=== PATIENT | male | born 1960 | race Caucasian/White ===

== ENCOUNTER 2017-03-27 11:24 | Inpatient (IN) | payer BC ==
[~2017-03-27] VITALS: Ht 175.3 cm; Wt 173.5 kg
[~2017-03-27 11:24] MED LIST: ERGO1CAP35 PO; FLM4 PO; FLUO10CA48 PO; METF500T5 PO; METO1TAB69 PO; METO50TA7 PO; ONDA4TAB10 SL; POTA20TA11 PO; PRT/40 PO; SYN50 PO; TRAM-10 PO; TRAZ50TA35 PO; ZOLP1TAB PO
--- NOTE | 2017-03-27 12:27 | EMERGENCY ROOM VISIT NOTE ---
ED Visit Note First contact with patient: 11:57 Resident Physician Supervision Note: I interviewed and examined the patient. Discussed with Dr. Jo and agree with findings and plan as documented in the note. Documented By: Yoni Junior Problem List Medical Problems: (1) Afib Status: Chronic (2) Coronary artery disease Permanent Comment: moderate disease per cardiac cath [facility] 2013; 50% LAD , 40% RCA Status: Chronic (3) Depression Status: Chronic (4) Diabetes mellitus type 2, controlled Status: Chronic (5) Hypertension Status: Chronic (6) Hypothyroidism Status: Chronic (7) Insomnia Status: Chronic (8) Iron deficiency anemia Status: Chronic (9) Ventricular septal defect Status: Chronic (10) Vitamin B12 deficiency Status: Chronic Surgical Problems: (1) Status post gastric bypass for obesity Status: Chronic Current/Historical Medications Scheduled Ergocalciferol (Vitamin D Cap), 50,000 INTER.UNIT PO WK Fluoxetine (Prozac), 10 MG PO QAM Levothyroxine Sodium (Synthroid), 50 MCG PO DAILY Metformin Hcl Er (Glucophage Er), 500 MG PO QPM Metoprolol Succ (Toprol Xl) (Toprol-Xl ), 100 MG PO HS Metoprolol Succ (Toprol Xl) (Toprol-Xl), 50 MG PO HS Pantoprazole (Pantoprazole Sodium), 40 MG PO DAILY Potassium Chloride Microencaps (Potassium Chloride Cr), 20 MEQ PO DAILY Tamsulosin HCl (Tamsulosin HCl), 0.4 MG PO QAM Trazodone Hcl (Trazodone), 50 MG PO HS Zolpidem Tartrate (Ambien Er), 12.5 MG PO HS Scheduled PRN Ondasetron Odt (Zofran Odt), 4 MG SL Q6H PRN for Nausea or Vomiting Tramadol (Ultram), 100 MG PO BID PRN for Pain Allergies Coded Allergies: No Known Allergies (Unverified , `, 03/10/16) Vital Signs Date Time Temp Pulse Resp B/P (MAP) Pulse Ox O2 Delivery O2 Flow Rate FiO2 03/27/17 12:02 139 03/27/17 11:58 Room Air 98 03/27/17 11:32 37.1 86 18 156/89 96 Room Air Laboratory Results Test 03/27/17 11:59 10/14/17 12:13 Creatine Kinase MB Ratio (0-3.0) Departure Information Referrals Sandi Roman M.D. (PCP) Patient Instructions [facility]
[2017-03-27 12:31] LABS: BASO % 0.5 %; BASO ABS # 0.04 K/uL (0-0.2); COMPLETE YES; EOS % 1.7 %; IG% 0.2 %; LYMPH % 21.1 %; LYMPH ABS # 1.87 K/uL (1.2-3.4); MEAN CORPUSCULAR HEMOGLOBIN 26.4 pg (25-34); MEAN CORPUSCULAR HGB CONC 31.8 g/dl (32-36); MEAN PLATELET VOLUME 8.5 fL (7.4-10.4); MONO % 6.5 %; PLATELET COUNT 173 K/uL (130-400); RED BLOOD COUNT 4.58 M/uL (4.7-6.1); WHITE BLOOD COUNT 8.88 K/uL (4.8-10.8)
[2017-03-27 12:36] LABS: INR 1.1 (0.9-1.1); PROTHROMBIN TIME (PATIENT) 11.6 SECONDS (9.0-12.0)
--- NOTE | 2017-03-27 12:36 | DIAGNOSTIC IMAGING REPORT ---
SINGLE VIEW CHEST CLINICAL HISTORY: Dyspnea. FINDINGS: 2 AP, portable, upright chest radiographs are compared to study dated 03/06/2016. Correlation is made with chest CT dated 10/30/2015. The examination is severely degraded by portable technique, large body habitus, and patient rotation. The cardiomediastinal heart is enlarged. The pulmonary vasculature is noncongested. The lungs and pleural spaces are clear. No pneumothorax is seen. The skeletal structures appear osteopenic. The bony thorax is grossly intact. IMPRESSION: Cardiomegaly with no acute cardiopulmonary abnormality. Electronically signed by: Kameron Diaz M.D. 03/27/2017 12:35 PM Dictated Date/Time: 03/27/2017 12:34 PM
[2017-03-27 12:38] LABS: BLOOD UREA NITROGEN 17 mg/dl (7-18); BUN/CREATININE RATIO 15.2 (10-20); CALCIUM 8.3 mg/dl (8.5-10.1); CARBON DIOXIDE 24 mmol/L (21-32); CHLORIDE 112 mmol/L (98-107); GLUCOSE 97 mg/dl (70-99); POTASSIUM 3.9 mmol/L (3.5-5.1); SODIUM 142 mmol/L (136-145)
[2017-03-27] MEDS ORDERED: METOPROLOL TARTRATE 1 MG/ML VIAL IV STA (12:38)
[2017-03-27] MEDS ORDERED: METOPROLOL TARTRATE 1 MG/ML VIAL ONE ×2 (12:38→13:29)
[2017-03-27 12:42] LABS: CKMB/CK RATIO 2.1 (0-3.0)
--- NOTE | 2017-03-27 12:53 | EMERGENCY ROOM VISIT NOTE ---
History First contact with patient: 11:55 Chief Complaint: RESPIRATORY PROBLEMS Stated Complaint: HARD BREATHING, CHEST TIGHTNESS Nursing Triage Summary: Difficulty breathing, chest tightness, dizziness since . In and out of A Fib Hx of Gastric Bypass Nonproductive cough, "hacking" History of Present Illness The patient is a 57 year old male who presents to the Emergency Room with complaints of shortness of breath. The patient complains of shortness of breath and orthopnea for the past 2 days. SOB present with lying flat, but states that it is worse when he is up walking around. He has felt slightly presyncopal for the past 2 days as well a generalized sense of malaise. He denies chest pain, but states he feels a slight tightness in his chest was taken deep breath in. He is uncertain whether he feels palpitations or not. He states that he has had some worsening swelling in his legs with the past 2 days. He took an extra dose of his Lasix for the past 2 days and states that it has helped but is not quite back to his baseline yet. His is slightly reduced appetite, but he continues to eat and drink without any issues. He has not had any nausea, vomiting, abdominal pain, diarrhea or constipation. He continues to urinate at baseline. He has not had fevers or chills or night sweats. The patient does report a history of atrial fibrillation diagnosed in 2016 after which she was hospitalized for management. The decision at that time was made to not anticoagulate, because the patient was Hemoccult positive. Since going home he was never put on anticoagulation. Prior to that discharge in 2016 that he converted spontaneous back to normal sinus rhythm. Review of Systems A 10 point review of systems was negative unless stated above. Past Medical/Surgical History Medical Problems: (1) Coronary artery disease (2) Depression (3) Diabetes mellitus type 2, controlled (4) History of urinary calculi (5) Hypertension (6) Hypothyroidism (7) Insomnia (8) Iron deficiency anemia (9) Paroxysmal atrial fibrillation (10) Ventricular septal defect (11) Vitamin B12 deficiency Surgical Problems: (1) Status post cystoscopy (2) Status post gastric bypass for obesity Family History Patient reports no known family medical history. CAD HTN DM Cancer Social History Smoking Status: Never Smoker Alcohol Use: none Drug Use: none Marital Status: single Occupation Status: retired Current/Historical Medications Scheduled Escitalopram (Lexapro), 10 MG PO QAM Furosemide (Lasix), 40 MG PO QAM Levothyroxine Sodium (Levothyroxine Sodium), 50 MCG PO DAILY Metoprolol Succ (Toprol Xl) (Toprol-Xl), 50 MG PO QAM Metoprolol Succ (Toprol Xl) (Toprol-Xl), 100 MG PO HS Pantoprazole (Protonix), 40 MG PO DAILY Potassium Ext Rel (Klor-Con), 20 MEQ PO QPM Tramadol (Ultram), 100 MG PO QAM Trazodone Hcl (Trazodone), 50 MG PO HS Allergies NKA Physical Exam Vital Signs Date Time Temp Pulse Resp B/P (MAP) Pulse Ox O2 Delivery O2 Flow Rate FiO2 03/27/17 12:46 132 16 136/105 95 Room Air 03/27/17 12:46 132 136/105 03/27/17 12:02 139 03/27/17 11:58 Room Air 98 03/27/17 11:32 37.1 86 18 156/89 96 Room Air Pain Rating (0-10): 0 Physical Exam Constitutional: Vital signs as above were reviewed. Obese Eyes: Pupils equal, round, and reactive to light. Extraocular muscles are intact. No proptosis. No photophobia. ENT: Mucous membranes are moist. Oropharynx is clear. No sinus tenderness. Very poor dentition Cardiovascular: Irregularly irregular, tachycardic, 1 + pedal edema bilaterally Respiratory: Lungs clear to auscultation bilaterally. No wheezes, rales, or rhonchi appreciated. No accessory muscle use. No retractions. No increased work of breathing. GI: Abdomen soft, nontender, nondistended. Normal active bowel sounds. No abdominal hernias appreciated. No rebound. No guarding. : No CVA tenderness appreciated. Musculoskeletal: No midline cervical or vertebral tenderness. No gross deformities. No bony tenderness. No calf swelling or tenderness. Integumentary: Warm, dry, no rashes appreciated. Neurological: Patient awake, alert, and oriented x 3. Lymph: No cervical lymphadenopathy appreciated. Medical Decision & Procedures ER Provider Diagnostic Interpretation: CLINICAL HISTORY: Dyspnea. FINDINGS: 2 AP, portable, upright chest radiographs are compared to study dated 03/06/2016. Correlation is made with chest CT dated 10/30/2015. The examination is severely degraded by portable technique, large body habitus, and patient rotation. The cardiomediastinal heart is enlarged. The pulmonary vasculature is noncongested. The lungs and pleural spaces are clear. No pneumothorax is seen. The skeletal structures appear osteopenic. The bony thorax is grossly intact. IMPRESSION: Cardiomegaly with no acute cardiopulmonary abnormality. Electronically signed by: Kameron Diaz M.D. 03/27/2017 12:35 PM Dictated Date/Time: 03/27/2017 12:34 PM The status of this report is Signed. Draft = Not yet reviewed or approved by Radiologist. Signed = Reviewed and approved by Radiologist. Laboratory Results 03/27/17 11:59 Red Blood Count 4.58, Mean Corpuscular Volume 83.0, Mean Corpuscular Hemoglobin 26.4, Mean Corpuscular Hemoglobin Concent 31.8, Mean Platelet Volume 8.5, Neutrophils (%) (Auto) 70.0, Lymphocytes (%) (Auto) 21.1, Monocytes (%) (Auto) 6.5, Eosinophils (%) (Auto) 1.7, Basophils (%) (Auto) 0.5, Neutrophils # (Auto) 6.22, Lymphocytes # (Auto) 1.87, Monocytes # (Auto) 0.58, Eosinophils # (Auto) 0.15, Basophils # (Auto) 0.04 03/27/17 11:59 Test 03/27/17 11:59 White Blood Count 8.88 K/uL (4.8-10.8) Red Blood Count 4.58 M/uL (4.7-6.1) Hemoglobin 12.1 g/dL (14.0-18.0) Hematocrit 38.0 % (42-52) Mean Corpuscular Volume 83.0 fL (80-100) Mean Corpuscular Hemoglobin 26.4 pg (25-34) Mean Corpuscular Hemoglobin Concent 31.8 g/dl (32-36) Platelet Count 173 K/uL (130-400) Mean Platelet Volume 8.5 fL (7.4-10.4) Neutrophils (%) (Auto) 70.0 % Lymphocytes (%) (Auto) 21.1 % Monocytes (%) (Auto) 6.5 % Eosinophils (%) (Auto) 1.7 % Basophils (%) (Auto) 0.5 % Neutrophils # (Auto) 6.22 K/uL (1.4-6.5) Lymphocytes # (Auto) 1.87 K/uL (1.2-3.4) Monocytes # (Auto) 0.58 K/uL (0.11-0.59) Eosinophils # (Auto) 0.15 K/uL (0-0.5) Basophils # (Auto) 0.04 K/uL (0-0.2) RDW Standard Deviation 46.2 fL (36.4-46.3) RDW Coefficient of Variation 15.4 % (11.5-14.5) Immature Granulocyte % (Auto) 0.2 % Immature Granulocyte # (Auto) 0.02 K/uL (0.00-0.02) Prothrombin Time 11.6 SECONDS (9.0-12.0) Prothromb Time International Ratio 1.1 (0.9-1.1) Anion Gap 7.0 mmol/L (3-11) Est Creatinine Clear Calc Drug Dose 103.6 ml/min Estimated GFR () 85.9 Estimated GFR (Non- 74.1 BUN/Creatinine Ratio 15.2 (10-20) Calcium Level 8.3 mg/dl (8.5-10.1) Total Creatine Kinase 95 U/L (39-308) Creatine Kinase MB 2.0 ng/ml (0.5-3.6) Creatine Kinase MB Ratio 2.1 (0-3.0) Medications Administered Medications (Trade) Dose Ordered Sig/Efrain Route Start Time Stop Time Status Last Admin Dose Admin Metoprolol Tartrate (Lopressor Iv) 5 mg NOW STAT IV 03/27/17 12:38 03/27/17 12:54 DC 03/27/17 12:46 5 MG Heparin Sodium (Porcine) (Heparin Sq 5000 Unit/0.5ml) 10,000 unit STK-MED ONCE .ROUTE 03/27/17 12:55 03/27/17 12:56 DC 03/27/17 12:55 8,000 UNIT Heparin Sodium/ Dextrose (Heparin 25,000 Unit/500ml D5W) 25,000 unit STK-MED ONCE .ROUTE 03/27/17 12:56 03/27/17 12:57 DC 03/27/17 12:56 25,000 UNIT ECG Change: Poor data quality, interpretation may be adversely affected Atrial fibrillation with rapid ventricular response Low voltage QRS Right bundle branch block Abnormal ECG When compared with ECG of 06-MAR-2016 18:19, Atrial fibrillation has replaced Sinus rhythm Vent. rate has increased BY 64 BPM Right bundle branch block is now Present Confirmed by KENNETH SCHWARZ ([id number]) on 03/27/2017 12:57:06 PM ED Course 12:00 - The patient was seen and evaluated by Dr. Monster Jo MD [facility] 12:10 - Labs ordered: CBC, BMP, PT/INR PTT, Cardiac enzymes, EKG, CXR, EKG reviewed; noted Afib with RVR 12:30 - 5 mg Lopressor ordered 12:45 - Labs reviewed Negative troponin CXR: cardiomegaly without overt failure 13:00 - Reviewed case with [place]. Esquivel, [facility] [place], who will evaluate and admit the patient. Medical Decision The patient is a 57-year-old male with a history of atrial fibrillation with RVR in February 2016, who converted spontaneously at that admission, who presents to the ED today with a sense of malaise and shortness of breath. Differential diagnosis includes pneumonia, CHF, ACS, bronchitis, obesity hypoventilation, obstructive sleep apnea. The EKG did note atrial fibrillation with rapid ventricular response. This was compared to his EKG from 2016 prior to discharge and showed a change from normal sinus rhythm. The patient has noted that he does take metoprolol daily, but that he has not been on anticoagulation because during his initial admission for atrial fibrillation, he was found to be heme positive. With shortness of breath it was my suspicion that atrial fibrillation may tipped off a CHF exacerbation. The chest x-ray did show some cardiomegaly but was otherwise unremarkable for pulmonary congestion or consolidation. He does have a very large body habitus and certainly PHYLLIS and obesity hypoventilation syndrome could certainly contribute to shortness of breath. His heart rate on arrival was in the 140s, and was refractory to 5 mg IV Lopressor. In this setting, the patient requires admission for acute IV therapies to help rate control, and for oral medication titration. The patient was reporting symptoms for approximately 48 hours. In this setting we had to consider the possibility of a mural thrombus. As such the patient would require admission and evaluation with KIMBERLY/TOB to look for this. Patient was stable during his admission with the exception of his tachycardia. I discussed the case with the hospitalist service, who will admit him for further evaluation and management. Head Trauma GCS Score: 15 Medication Reconcilliation Current Medication List: was personally reviewed by me Blood Pressure Screening Patient's blood pressure: Normal blood pressure Impression Primary Impression: Atrial fibrillation with rapid ventricular response Departure Information Dispostion Being Evaluated By Hospitalist Condition GOOD Referrals Sandi Roman M.D. (PCP) Patient Instructions [facility]
[2017-03-27] MEDS ORDERED: TRAZ50TA35 PO (12:54)
[2017-03-27] MEDS ORDERED: METO50TA7 PO ×2 (12:54)
[2017-03-27] MEDS ORDERED: HEPARIN SOD 5000 UNIT/0.5 ML CARP ONE (12:55)
[2017-03-27] MEDS ORDERED: HEPARIN 25000 UNIT/500 ML D5W ONE (12:56)
--- NOTE | 2017-03-27 13:54 | History and Physical ---
History & Physical Date & Time of Service: Mar 27, 2017 at 13:20 . Chief Complaint: trouble breathing . Primary Care Physician: Sandi Roman M.D. . History of Present Illness Source: patient, clinic records, hospital records 57 YO male followed by Dr. Roman for Internal Medicine. History of moderate coronary artery disease (50% LAD, 40% RCA stenoses) per cardiac cath 2013, paroxysmal atrial fibrillation, small VSD, hypertension, diet -controlled DM, and other problems noted below. Admitted to [facility] October 2015 with initial episode of atrial fibrillation. Converted to NSR. Not anticoagulated due to heme + stools. Subsequently underwent outpatient EGD and colonoscopy- only finding per pt's understanding was colonic polyps. 2 nights prior to admission developed dyspnea while sleeping in bed around 01: 00. Sudden onset of symptoms. No palpitations, but his radial pulse seemed to be irregular when he checked it manually. Chest felt tight with deep inspiration. No fever. Mild nonproductive cough. Weight up a few pounds. Instructed to increase his furosemide dose from 40 mg daily to 80 mg daily. Progressive orthopnea and dyspnea on exertion despite increased dose of furosemide. Came to ED for evaluation. Found to be in atrial fibrillation with rapid ventricular response. Received IV metoprolol without significant slowing of ventricular rate. . Past Medical/Surgical History Chronic and Resolved Medical Problems: (1) Coronary artery disease Permanent Comment: moderate disease per cardiac cath [facility]-2013; 50% LAD , 40% RCA (2) Depression (3) Diabetes mellitus type 2, controlled (4) History of colonic polyps (5) History of urinary calculi Permanent Comment: right ureteral stone 2015 (6) Hypertension (7) Hypothyroidism (8) Insomnia (9) Iron deficiency anemia Permanent Comment: heme + stool 2015, subsequent EGD and colonoscopy neg except for polyp (10) Paroxysmal atrial fibrillation (11) Ventricular septal defect Status: Chronic (12) Vitamin B12 deficiency Surgical Problems: (1) Status post cardiac catheterization Permanent Comment: 2013, 50% LAD, 40% RCA (2) Status post cystoscopy Permanent Comment: with right ureteroscopy, laser lithotripsy, basket stone extraction (3) Status post gastric bypass for obesity . Family History GRANDFATHER Hypertension GRANDFATHER Hypertension Heart disease GRANDMOTHER Hypertension Heart disease GRANDMOTHER Hypertension Social History Smoking Status: Never Smoker Alcohol Use: occasionally Drug Use: none Marital Status: single Housing status: lives alone Occupational Status: retired Allergies Coded Allergies: No Known Allergies (Unverified , `, 03/27/17) Home Medications Scheduled Escitalopram (Lexapro), 10 MG PO QAM Furosemide (Lasix), 40 MG PO QAM Levothyroxine Sodium (Levothyroxine Sodium), 50 MCG PO DAILY Metoprolol Succ (Toprol Xl) (Toprol-Xl), 50 MG PO QAM Metoprolol Succ (Toprol Xl) (Toprol-Xl), 100 MG PO HS Pantoprazole (Protonix), 40 MG PO DAILY Potassium Ext Rel (Klor-Con), 20 MEQ PO QPM Tramadol (Ultram), 100 MG PO QAM Trazodone Hcl (Trazodone), 50 MG PO HS Review of Systems Constitutional- no fever; no weight loss Eyes- no acute visual changes ENT- no sinus drainage; no pharyngitis Pulmonary- as noted in HPI Cardiac- as noted in HPI GI- no nausea, no vomiting, no diarrhea, no melena, no hematochezia - no dysuria, no hematuria Musculoskeletal- knee pain Derm- no rashes, no new skin lesions, no changing skin lesions Hematologic- no unusual bruising, no unusual bleeding Lymphatics- no adenopathy Endocrine- no polyuria or polydipsia Neuro- mild headaches Psych- depression . Physical Exam Vital Signs Date Time Temp Pulse Resp B/P (MAP) Pulse Ox O2 Delivery O2 Flow Rate FiO2 03/27/17 13:39 124 16 148/104 98 Room Air 03/27/17 13:29 124 148/104 03/27/17 12:46 132 16 136/105 95 Room Air 03/27/17 12:46 132 136/105 03/27/17 12:02 139 03/27/17 11:58 Room Air 98 03/27/17 11:32 37.1 86 18 156/89 96 Room Air General Appearance: no apparent distress, + obese Head: normocephalic, atraumatic Eyes: normal inspection, PERRL, EOMI, sclerae normal (eyelids and conjunctivae normal) ENT: pharynx normal, + pertinent finding (poor dentition) Neck: supple, no adenopathy, thyroid normal (exam limited due to body habitus) , trachea midline Respiratory/Chest: lungs clear, no respiratory distress, no accessory muscle use Cardiovascular: no gallop, no JVD (none appreciated, but exam limited due to body habitus), + systolic murmur (II/ sys murmur at apex), + irregularly irregular, + pertinent finding (1+ pretibial edema) Abdomen/GI: normal bowel sounds, non tender, soft, no organomegaly (exam limited), no pulsatile mass Extremities/Musculoskelatal: no calf tenderness, normal capillary refill Neurologic/Psych: informatics scientist II-XII nml as tested (PERRL, EOMI, no facial palsy, no dysarthria), no motor/sensory deficits (motor strength extremities grossly intact), alert, normal mood/affect, oriented x 3 Skin: normal color, warm/dry, no rash Lymphatic: no adenopathy (cervical) Diagnostics Laboratory Results Results Past 24 Hours Test 03/27/17 11:59 Range/Units White Blood Count 8.88 4.8-10.8 K/uL Red Blood Count 4.58 4.7-6.1 M/uL Hemoglobin 12.1 14.0-18.0 g/dL Hematocrit 38.0 42-52 % Mean Corpuscular Volume 83.0 80-100 fL Mean Corpuscular Hemoglobin 26.4 25-34 pg Mean Corpuscular Hemoglobin Concent 31.8 32-36 g/dl Platelet Count 173 130-400 K/uL Mean Platelet Volume 8.5 7.4-10.4 fL Neutrophils (%) (Auto) 70.0 % Lymphocytes (%) (Auto) 21.1 % Monocytes (%) (Auto) 6.5 % Eosinophils (%) (Auto) 1.7 % Basophils (%) (Auto) 0.5 % Neutrophils # (Auto) 6.22 1.4-6.5 K/uL Lymphocytes # (Auto) 1.87 1.2-3.4 K/uL Monocytes # (Auto) 0.58 0.11-0.59 K/uL Eosinophils # (Auto) 0.15 0-0.5 K/uL Basophils # (Auto) 0.04 0-0.2 K/uL RDW Standard Deviation 46.2 36.4-46.3 fL RDW Coefficient of Variation 15.4 11.5-14.5 % Immature Granulocyte % (Auto) 0.2 % Immature Granulocyte # (Auto) 0.02 0.00-0.02 K/uL Prothrombin Time 11.6 9.0-12.0 SECONDS Prothromb Time International Ratio 1.1 0.9-1.1 Activated Partial Thromboplast Time 26.2 21.0-31.0 SECONDS Partial Thromboplastin Ratio 1.0 Sodium Level 142 136-145 mmol/L Potassium Level 3.9 3.5-5.1 mmol/L Chloride Level 112 98-107 mmol/L Carbon Dioxide Level 24 21-32 mmol/L Anion Gap 7.0 3-11 mmol/L Blood Urea Nitrogen 17 7-18 mg/dl Creatinine 1.10 0.60-1.40 mg/dl Est Creatinine Clear Calc Drug Dose 103.6 ml/min Estimated GFR () 85.9 Estimated GFR (Non- 74.1 BUN/Creatinine Ratio 15.2 10-20 Random Glucose 97 70-99 mg/dl Calcium Level 8.3 8.5-10.1 mg/dl Total Creatine Kinase 95 39-308 U/L Creatine Kinase MB 2.0 0.5-3.6 ng/ml Creatine Kinase MB Ratio 2.1 0-3.0 Troponin I < 0.015 0-0.045 ng/ml Diagnostic Radiology SINGLE VIEW CHEST IMPRESSION: Cardiomegaly with no acute cardiopulmonary abnormality. Electronically signed by: Kameron Diaz M.D. 03/27/2017 12:35 PM Dictated Date/Time: 03/27/2017 12:34 PM . EKG EKG performed at 11:54 reviewed and demonstrated AF at 150 / minute, low voltage QRS, RBBB. . Impression Assessment and Plan ATRIAL FIBRILLATION Recurrent atrial fibrillation with rapid ventricular response. CHADS2-VASc score = 3. Potassium normal. Check Mg, TSH. Rule out acute AK with serial cardiac markers. Screen for thromboembolic disease with D-dimer. Check echo. PO and IV metoprolol for rate control (will temporarily switch from metoprolol succinate to metoprolol tartrate for easier titration). IV heparin; transition to anticoagulation with warfarin if stool heme negative. Consult Cardiology. CORONARY ARTERY DISEASE Cardiac cath 2013 showed moderate disease (50% LAD, 40% RCA). Check serial cardiac markers. Check lipid profile. Start ASA. Continue metoprolol. DYSPNEA Possibly due to rapid AF. No overt pulmonary edema on chest films. Rule-out PE. AT RISK FOR SLEEP APNEA Wt 139 kg, BMI 45. Check nocturnal pulse oximetry once cardiac status stabilized. Consider outpatient sleep study if not recently done. HYPERTENSION Titrate metoprolol. Follow and titrate Rx. DM TYPE 2 Diet-controlled since gastric bypass. Random glucose in ED 97. Check Hgb A1C. HYPOTHYROIDISM Check TSH. Continue levothyroxine. DEPRESSION / INSOMNIA Continue escitalopram, trazodone. VTE PROPHYLAXIS IV heparin --> warfarin. Ambulate. RESUSCITATION STATUS Full code. DISPOSITION Admit to Telemetry Unit. Inpatient status recommended by Case Management. Expected discharge to home. Internal Medicine follow-up with Dr. Roman. . VTE Prophylaxis VTE Risk Assessment Done? Y/N: Yes Risk Level: Moderate Given or contraindicated: Other Anticoagulation (IV heparin)
[2017-03-27 14:41] VITALS: BP 151/97; PULSE 119; TEMP 37.2; O2SAT 97; Ht 175.3 cm; Wt 173.5 kg
[2017-03-27 15:07] VITALS: BP 136/78; PULSE 125; TEMP 36.8; O2SAT 97
[2017-03-27] MEDS: METOPROLOL TARTRATE 1 MG/ML VIAL IV PRN (15:23)
[2017-03-27] MEDS: FUROSEMIDE INJ 40 MG in SYRINGE 0 ML IV SCH (15:23)
[2017-03-27] MEDS ORDERED: INFLUENZA VIRUS QUAD VACCINE 0.5 ML SYR IM. ONE (15:45)
[2017-03-27] MEDS ORDERED: PNEUMOCOCCAL ADMINISTRATION CHARGE ONE (15:45)
[2017-03-27] MEDS ORDERED: PERFLUTREN LIPID MICROSPHERE (DEFINITY) IV ONE (15:45)
[2017-03-27] MEDS ORDERED: PNEUMOCOCCAL POLYSACCHARIDES 25 MCG/0.5 ML VIAL/SYR IM. ONE (15:45)
[2017-03-27] MEDS ORDERED: INFLUENZA ADMINISTRATION CHARGE ONE (15:45)
[2017-03-27] MEDS ORDERED: METOPROLOL TARTRATE 1 MG/ML VIAL IV ONE (16:15)
[2017-03-27] MEDS: METOPROLOL TARTRATE 50 MG TAB PO SCH ×2 (17:16→23:21)
[2017-03-27 18:41] VITALS: BP 122/84; PULSE 113; TEMP 37; O2SAT 96
[2017-03-27 18:41] LABS: MAGNESIUM 1.7 mg/dl (1.8-2.4)
[2017-03-27 18:49] LABS: PARTIAL THROMBOPLASTIN RATIO 2.1
[2017-03-27] MEDS ORDERED: MAGNESIUM SULFATE 1GM / D5W 1 GM in PREMIXED IN D5W 100 ML IV ONE ×2 (19:00→23:00)
[2017-03-27] MEDS ORDERED: OPTIRAY 320 IV PRN (19:15)
--- NOTE | 2017-03-27 20:02 | DIAGNOSTIC IMAGING REPORT ---
CT ANGIOGRAM OF THE CHEST CLINICAL HISTORY: Dyspnea. COMPARISON STUDY: Chest x-ray dated 03/27/2017. Chest CT dated 10/30/2015. TECHNIQUE: Following the IV administration of 117 cc of Optiray 320, CT angiogram of the chest was performed from the upper abdomen to the thoracic inlet utilizing the pulmonary embolus protocol. Images are reviewed in the axial, sagittal, and coronal planes. 3-D MIPS images are created and assessed. IV contrast was administered without complication. A dose lowering technique was utilized adhering to the principles of ALARA. The examination is significantly degraded by large body habitus, and by streak artifact from the body wall abutting the CT gantry. Examination is also degraded by motion artifact. CT DOSE: 1204.74 mGy.cm FINDINGS: Thyroid: Imaged portions of the thyroid gland are normal in size and attenuation. Thoracic aorta: The thoracic aorta is normal in caliber and demonstrates standard 3-vessel arch anatomy. The thoracic aorta is not well opacified. Pulmonary vasculature: The pulmonary trunk is dilated, measuring 3.9 cm in diameter. This suggests pulmonary artery hypertension. There are no filling defects identified in main, lobar, or segmental pulmonary branches to suggest pulmonary embolus. Evaluation of the peripheral branches is degraded by motion artifact. Heart: The heart is markedly enlarged and without pericardial effusion. The coronary arteries are densely calcified. Lungs and pleural spaces: Evaluation of lung parenchyma is degraded by motion artifact. There are trace pleural effusions with dependent atelectasis. No airspace consolidation is seen typical for pneumonia. The trachea and central airways are clear. Mediastinum: There is no mediastinal lymphadenopathy. Deborah: Clear. Axillae: There is no axillary lymphadenopathy. Upper abdomen: Cholecystectomy clips are noted. There is a moderate hiatal hernia. Circumferential wall thickening is suggested in the distal esophagus. 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 The spleen is enlarged measuring 14.6 cm in length. Skeletal structures: No lytic or blastic bony lesions are seen. Degenerative change is present throughout the thoracic spine. IMPRESSION: 1. Streak and motion degraded examination. 2. There is no evidence of pulmonary embolus in the main, lobar, or segmental pulmonary arteries. 3. Cardiomegaly with evidence of pulmonary artery hypertension. 4. Trace pleural effusions. The lungs are otherwise clear. 5. Hiatal hernia. Circumferential wall thickening is suggested in the distal esophagus. Correlate clinically for evidence of esophagitis. If further assessment is desired then endoscopy would be appropriate. 6. Splenomegaly. 7. Additional findings as above. Electronically signed by: Kameron Diaz M.D. 03/27/2017 8:01 PM Dictated Date/Time: 03/27/2017 7:56 PM
[2017-03-27] MEDS: POTASSIUM CHLORIDE 20 MEQ TABCR PO SCH (21:28)
[2017-03-27] MEDS: MAGNESIUM OXIDE 400 MG TAB PO SCH (21:28)
[2017-03-27] MEDS: TRAZODONE HCL 50 MG TAB PO SCH (21:28)
[2017-03-28 00:13] VITALS: BP 130/84; PULSE 106; TEMP 36.8; O2SAT 99
[2017-03-28] MEDS: HEPARIN 25,000 UNIT/500ML D5W 500 ML IV PRN ×2 (03:31→18:03)
[2017-03-28 03:32] VITALS: BP 122/90; PULSE 93; TEMP 36.8; O2SAT 97
[2017-03-28 05:48] LABS: HEMATOCRIT 34.9 % (42-52); MEAN CELL VOLUME 83.7 fL (80-100); MEAN CORPUSCULAR HEMOGLOBIN 26.4 pg (25-34); MEAN CORPUSCULAR HGB CONC 31.5 g/dl (32-36); MEAN PLATELET VOLUME 8.2 fL (7.4-10.4); PLATELET COUNT 158 K/uL (130-400); RED BLOOD COUNT 4.17 M/uL (4.7-6.1); WHITE BLOOD COUNT 7.03 K/uL (4.8-10.8)
[2017-03-28] MEDS: LEVOTHYROXINE 50 MCG TAB PO SCH (06:05)
[2017-03-28] MEDS: METOPROLOL TARTRATE 50 MG TAB PO SCH ×3 (06:05→17:32)
[2017-03-28 06:07] LABS: INR 1.1 (0.9-1.1); PARTIAL THROMBOPLASTIN RATIO 1.9; PROTHROMBIN TIME (PATIENT) 11.8 SECONDS (9.0-12.0)
[2017-03-28 06:26] LABS: CALCIUM 7.9 mg/dl (8.5-10.1); CREATININE 0.92 mg/dl (0.60-1.40); MAGNESIUM 1.9 mg/dl (1.8-2.4); POTASSIUM 3.5 mmol/L (3.5-5.1)
--- NOTE | 2017-03-28 06:33 | DIAGNOSTIC IMAGING REPORT ---
BILATERAL LOWER EXTREMITY VENOUS DOPPLER HISTORY: SOB, elevated D-dimer COMPARISON STUDY: None. FINDINGS: There is normal compressibility, flow, and augmentation within the bilateral lower extremity deep venous systems. IMPRESSION: No DVT within the right or left lower extremity. Electronically signed by: Aidan Mota M.D. 03/28/2017 6:32 AM Dictated Date/Time: 03/28/2017 6:32 AM
[2017-03-28 07:44] VITALS: BP 124/84; PULSE 98; TEMP 36.8; O2SAT 96
[2017-03-28] MEDS: MAGNESIUM OXIDE 400 MG TAB PO SCH ×2 (07:59→21:04)
[2017-03-28] MEDS: ESCITALOPRAM OXALATE 10 MG TAB PO SCH (08:00)
[2017-03-28] MEDS: ASPIRIN 81 MG ECTAB PO SCH (08:00)
[2017-03-28] MEDS: PANTOprazole SOD 40 MG TAB PO SCH (08:00)
[2017-03-28] MEDS: POTASSIUM CHLORIDE 20 MEQ TABCR PO SCH ×2 (08:00→21:04)
[2017-03-28] MEDS: FUROSEMIDE INJ 40 MG in SYRINGE 0 ML IV SCH ×2 (08:06→16:07)
[2017-03-28] MEDS: TRAMADOL HCL 50 MG TAB PO SCH (08:07)
--- NOTE | 2017-03-28 09:21 | ECHOCARDIOGRAM REPORT ---
*NOTICE TO RECEIVING LIBERTARIAN AGENCY This information is strictly Confidential and protected under [place] law. [place] law prohibits you from making any further disclosure of this information unless further disclosure is expressly permitted by the written consent of the person to whom it pertains or is authorized by law. A general authorization for the release of medical or other information is not sufficient for this purpose. Hospital accepts no responsibility if the information is made available to any other person, INCLUDING THE PATIENT. Interpretation Summary * Name: OMA OWENS Study Date: 03/27/2017 03:14 PM BP: 136/78 mmHg * Patient Location: C.2T\S\E215\S\1 HR: 124 * : 1960 (M/d/yyy) Gender: Male Height: 69 in * Age: 57 yrs Ethnicity: CA Weight: 307 lb * Ordering Physician: Zhang Esquivel * Referring Physician: Self, Referred * Performed By: Harriet Marie RDCS * * Reason For Study: Atrial fibrillation * BSA: 2.5 m2 * The study was technically limited. * -- Conclusions -- * The study was technically limited. * The left ventricular ejection fraction is grossly normal. * Ejection Fraction = 65-70%. * The right ventricular systolic function is qualitatively normal. * The left atrium is mildly dilated. * The right atrium is mildly dilated. * No significant vavular pathology. * No VSD identified by this technically limited study. Procedure Details * A complete two-dimensional transthoracic echocardiogram was performed (2D, M-mode, Doppler and color flow Doppler). * The study was technically limited. * The study was technically difficult. * There were technical limitations due to patient'sbody habitus * A contrast injection of Definity was performed to improve assessment of LV function. * Contrast was injected into an intravenous site in the right arm. * One vial of Definity ultrasound contrast was diluted in normal saline to a total volume of 10 ml. A total of '2' ml of solution was administered during imaging. * Lot # [id number] of Definity utilized for procedure. * Expiration date MAR 31. * The attending nurse who injected the contrast agent was Meredith Ford RN. Left Ventricle * The left ventricle is normal in size. * The left ventricle is not well visualized. * Ejection Fraction = 65-70%. * The left ventricular ejection fraction is grossly normal. Right Ventricle * The right ventricle is not well visualized. * The right ventricular systolic function is qualitatively normal. Atria * The left atrium is mildly dilated. * The right atrium is mildly dilated. * There is no evidence of atrial septal defect, but resolution does not allow assessment for a patent foramen ovale. Mitral Valve * The mitral valve is not well visualized. * Significant mitral regurgitation is absent. Tricuspid Valve * The tricuspid valve is not well visualized. * Significant tricuspid regurgitation is absent. Aortic Valve * The aortic valve is tricuspid. The leaflet thickness if normal. There is no aortic stenosis, and no significant insufficiency. * Aortic stenosis is absent. * There is no significant aortic regurgitation. Pulmonic Valve * The pulmonic valve is not well visualized. * There is no significant pulmonary regurgitation. Great Vessels * The aortic root and proximal ascending aorta are normal sized. Pericardium/Pleural * There is no pericardial effusion. MMode 2D Measurements and Calculations IVSd 0.92 cm LVIDd 3.5 cm LVIDs 2.3 cm LVPWd 1.1 cm IVS/LVPW 0.84 FS 36.4 % EDV(Teich) 52.6 ml ESV(Teich) 17.3 ml EF(Teich) 67.2 % EDV(cubed) 44.7 ml ESV(cubed) 11.5 ml EF(cubed) 74.3 % LV mass(C)d 106.8 grams LV mass(C)dI 43.1 grams/m\S\2 SV(Teich) 35.3 ml SI(Teich) 14.2 ml/m\S\2 SV(cubed) 33.2 ml SI(cubed) 13.4 ml/m\S\2 Ao root diam 3.4 cm Ao root area 8.9 cm\S\2 ACS 1.9 cm LA dimension 4.1 cm asc Aorta Diam 3.4 cm LA/Ao 1.2 LVOT diam 2.2 cm LVOT area 3.6 cm\S\2 LVAd ap4 23.6 cm\S\2 LVLd ap4 6.9 cm EDV(MOD-sp4) 65.1 ml EDV(sp4-el) 68.8 ml LVAs ap4 12.9 cm\S\2 LVLs ap4 6.0 cm ESV(MOD-sp4) 22.3 ml ESV(sp4-el) 23.6 ml EF(MOD-sp4) 65.7 % EF(sp4-el) 65.8 % SV(MOD-sp4) 42.8 ml SI(MOD-sp4) 17.3 ml/m\S\2 SV(sp4-el) 45.3 ml SI(sp4-el) 18.3 ml/m\S\2 Doppler Measurements and Calculations MV E max conor 135.6 cm/sec MV dec time 0.16 sec Ao V2 max 118.3 cm/sec Ao max PG 5.6 mmHg Ao max PG (full) 2.9 mmHg ZO(V,A) 2.5 cm\S\2 ZO(V,D) 2.5 cm\S\2 LV V1 max PG 2.7 mmHg LV V1 max 81.8 cm/sec PA V2 max 77.4 cm/sec PA max PG 2.4 mmHg PA acc slope 376.8 cm/sec\S\2 PA acc time 0.12 sec TR max conor 151.9 cm/sec PA pr(Accel) 25.1 mmHg
[2017-03-28 12:10] VITALS: BP 120/83; PULSE 125; TEMP 37.2; O2SAT 96
[2017-03-28] MEDS ORDERED: AMIODARONE 200 MG TAB PO ONE (12:30)
--- NOTE | 2017-03-28 12:53 | CARDIOLOGY CONSULTATION ---
DATE OF CONSULTATION: 03/28/2017 REFERRING PHYSICIAN: Ankit richardson. REASON FOR CONSULTATION: Atrial fibrillation. HISTORY OF PRESENT ILLNESS: This is a 57-year-old morbidly obese male patient who a year ago presented with atrial fibrillation, spontaneously converted to normal sinus rhythm. At that time, he was not placed on anticoagulation due to suggestion of GI bleeding. He subsequently went on to have an endoscopy and colonoscopy that were essentially unrevealing except for small polyp. He has not been followed by cardiology. He does have a history of coronary artery disease and had a cardiac catheterization in 2013 that showed moderate nonobstructive disease. He has a history of a heart murmur since childhood and states that it may be a VSD; however, his 2 previous echocardiograms including the one this admission failed to show evidence for VSD. He has undergone bariatric surgery in the past, but still remains morbidly obese. He is a phase 0 diabetic with a history of hypertension. He has never been treated or evaluated for sleep apnea. He presented this admission after several days of fatigue and just being played out with the activity. He was found to be in atrial fibrillation with RVR and has been given beta blockers to try to control his heart rate and was started on anticoagulation with heparin. At around 03:00 a.m. this morning when he was sleeping, he did have a bradycardic event, which resolved very quickly when he was aroused by nursing. He has no history of dizziness, lightheadedness, or syncope. No previous history of myocardial infarction. No current episodes of bleeding such as melena or hematochezia. In general, he feels better today. His heart rate still remained in the 120 range with atrial fibrillation. He has been given intravenous diuretics with a good result. ALLERGIES: No known medical allergies. PAST MEDICAL HISTORY: As outlined in the history of chief complaint. In addition, he has a history of treated hypothyroidism. He has a history of an iron deficiency anemia as well as vitamin B12 deficiency, which may be related to his previous bariatric surgery. SOCIAL HISTORY: He has never smoked. He is single and lives alone. FAMILY MEDICAL HISTORY: Noncontributory. REVIEW OF SYSTEMS: A 10-point review of systems is otherwise negative. PHYSICAL EXAMINATION: GENERAL: He is alert and oriented. VITAL SIGNS: Blood pressure is 140/100. Pulse is irregular at 120 beats per minute. He is afebrile. HEENT: He is normocephalic. Pupils are equal and reactive to light. Extraocular muscles are intact bilaterally. NECK: The neck veins are flat. Carotids have good upstrokes bilaterally without bruits. Thyroid is nonpalpable. RESPIRATORY: Breath sounds equal bilaterally and clear to auscultation. CARDIOVASCULAR: Heart has an irregular rhythm. There are no significant murmurs. GASTROINTESTINAL: Abdomen is obese, soft, and nontender without organomegaly. EXTREMITIES: Free of edema, digit clubbing, or cyanosis. NEUROLOGIC: Grossly intact. SKIN: Warm to touch. LYMPH NODES: Negative to palpation. LABORATORY DATA: Hemoglobin is 12.1 and platelet count 173. INR is 1.1. Potassium is 3.9 and creatinine is 1.1. Troponins are negative. TSH level is 7.48. IMPRESSION: 1. Atrial fibrillation with rapid ventricular response. 2. Bradycardic event while sleeping, rule out sleep apnea. 3. Morbid obesity. 4. Previous bariatric surgery. 5. Iron and vitamin B12 deficiencies. 6. Known coronary artery disease by cardiac catheterization in 2013. 7. Treated hypothyroidism, which may be under dosed. RECOMMENDATIONS: The patient by echocardiography, although being a limited study, showed preserved left ventricular systolic function with an estimated left ventricular ejection fraction of 65%-70%. I could not identify a VSD from this study. If he does have a VSD, I believe it is most likely very small. His left and right atrium are dilated. He has no other significant findings of valvular pathology. I think we need to have better rate control. I would recommend that we start him on amiodarone. We can hold his metoprolol as needed for his heart rates. He will have a nocturnal pulse oximeter tonight. It would not surprise me if he has sleep apnea due to his obesity and the bradycardia that happened last night. Ultimately, he may need CPAP support at night and possibly a pacemaker. He is anticoagulated with heparin and I will switch him over to Coumadin. We should probably adjust his thyroid medications appropriately for his elevated TSH level. Further evaluation and treatment following the above.
[2017-03-28] MEDS: METOPROLOL TARTRATE 1 MG/ML VIAL IV PRN (12:59)
[2017-03-28 15:03] VITALS: BP 120/82; PULSE 87; TEMP 36.8; O2SAT 97
[2017-03-28] MEDS: WARFARIN SOD 7.5 MG TAB PO SCH (16:09)
[2017-03-28] MEDS: AMIODARONE 200 MG TAB PO SCH (16:09)
--- NOTE | 2017-03-28 17:32 | Progress Note ---
Internal Med Progress Note Date of Service: Mar 28, 2017. Provider Documentation: SUBJECTIVE: resting comfortably says was having sob for last few days more on exeertion no cough' afebrile no chest pains ambulating in room ok OBJECTIVE: Vital Signs-as noted below Exam: General-alert and awake. Not in distress Eyes- no pallor no icterus ENT-normal hearing Neck-no neck masses Lungs-cta b/l no wheezing present no crackles Heart-s1 and s2 heard irregular rhythm no murmurs Abdomen-soft bowel sounds present non tender no distension Extremities-no erythema lower extremity edema present Neuro-alert and awake moves extremities Lab data as noted below. ASSESSMENT & PLAN: ATRIAL FIBRILLATION Recurrent atrial fibrillation with rapid ventricular response. CHADS2-VASc score = 3. d dimer elevated cta chest and venous Doppler negative study started on iv heparin and and placed on po Lopressor 50mg qid cardiology started on amiodarone echo unremarkable except for mild left and right atrial enlargement hx of hemepositive stools and underwent egd and colonoscopy which were unremarkable except polypectomy heme stools negative here staring on Coumadin' close monitor Sleep apnea? has obesity possible contributing to a fib plan for nocturnal pule ox study sleep study as out [facility] CORONARY ARTERY DISEASE Cardiac cath 2013 showed moderate disease (50% LAD, 40% RCA). started on ASA. will check lipid profile Continue metoprolol. DYSPNEA Possibly due to rapid AF. No overt pulmonary edema on chest films. HYPERTENSION Titrate metoprolol. will monitor DM TYPE 2 Diet-controlled since gastric bypass. Random glucose in ED 97. Will Check Hgb A1C. HYPOTHYROIDISM TSH high Continue levothyroxine. will recheck thyroid profile in am DEPRESSION / INSOMNIA on escitalopram, trazodone. VTE PROPHYLAXIS IV heparin --> warfarin. Ambulate. RESUSCITATION STATUS Full code. DISPOSITION Monitor in tele to be determined Internal Medicine follow-up with Dr. Roman. . Vital Signs: Date Time Temp Pulse Resp B/P (MAP) Pulse Ox O2 Delivery O2 Flow Rate FiO2 03/28/17 16:00 Room Air 03/28/17 15:03 36.8 87 18 120/82 (95) 97 Room Air 03/28/17 12:59 142 120/83 03/28/17 12:10 37.2 125 18 120/83 (95) 96 03/28/17 12:02 Room Air 03/28/17 08:05 Room Air 03/28/17 07:44 36.8 98 20 124/84 (97) 96 03/28/17 04:00 Room Air 03/28/17 03:32 36.8 93 18 122/90 (101) 97 Room Air 03/28/17 00:13 36.8 106 19 130/84 (99) 99 Room Air 03/28/17 00:00 Room Air 03/27/17 20:00 Room Air 03/27/17 18:41 37.0 113 20 122/84 (97) 96 Room Air Lab Results: Results Past 24 Hours Test 03/27/17 18:05 03/28/17 00:00 03/28/17 05:09 Range/Units Activated Partial Thromboplast Time 54.7 49.6 21.0-31.0 SECONDS Partial Thromboplastin Ratio 2.1 1.9 D-Dimer 800 0-500 ug/L FEU Magnesium Level 1.7 1.9 1.8-2.4 mg/dl Troponin I < 0.015 0-0.045 ng/ml Thyroid Stimulating Hormone (TSH) 7.480 0.300-4.500 uIu/ml Stool Occult Blood NEGATIVE NEGATIVE White Blood Count 7.03 4.8-10.8 K/uL Red Blood Count 4.17 4.7-6.1 M/uL Hemoglobin 11.0 14.0-18.0 g/dL Hematocrit 34.9 42-52 % Mean Corpuscular Volume 83.7 80-100 fL Mean Corpuscular Hemoglobin 26.4 25-34 pg Mean Corpuscular Hemoglobin Concent 31.5 32-36 g/dl RDW Standard Deviation 46.7 36.4-46.3 fL RDW Coefficient of Variation 15.4 11.5-14.5 % Platelet Count 158 130-400 K/uL Mean Platelet Volume 8.2 7.4-10.4 fL Prothrombin Time 11.8 9.0-12.0 SECONDS Prothromb Time International Ratio 1.1 0.9-1.1 Sodium Level 140 136-145 mmol/L Potassium Level 3.5 3.5-5.1 mmol/L Chloride Level 107 98-107 mmol/L Carbon Dioxide Level 26 21-32 mmol/L Anion Gap 7.0 3-11 mmol/L Blood Urea Nitrogen 15 7-18 mg/dl Creatinine 0.92 0.60-1.40 mg/dl Est Creatinine Clear Calc Drug Dose 148.7 ml/min Estimated GFR () 106.6 Estimated GFR (Non- 92.0 BUN/Creatinine Ratio 16.0 10-20 Random Glucose 96 70-99 mg/dl Calcium Level 7.9 8.5-10.1 mg/dl
[2017-03-28 18:58] VITALS: BP 109/74; PULSE 89; TEMP 36.9; O2SAT 95
[2017-03-28] MEDS: TRAZODONE HCL 50 MG TAB PO SCH (21:04)
[2017-03-29] VITALS (8 sets, daily range): BP systolic 105–128; BP diastolic 71–85; PULSE 81–106; TEMP 36.5–36.8; O2SAT 92–99
[2017-03-29] MEDS: METOPROLOL TARTRATE 50 MG TAB PO SCH ×5 (00:17→23:55)
[2017-03-29] MEDS: LEVOTHYROXINE 50 MCG TAB PO SCH (05:51)
[2017-03-29] MEDS: HEPARIN 25,000 UNIT/500ML D5W 500 ML IV PRN ×2 (05:53→19:57)
[2017-03-29 06:38] LABS: ESTIMATED AVERAGE GLUCOSE 103 mg/dl; HA1C FLAG Normal (Normal)
[2017-03-29 06:48] LABS: INR 1.1 (0.9-1.1); PARTIAL THROMBOPLASTIN RATIO 1.9; PROTHROMBIN TIME (PATIENT) 11.5 SECONDS (9.0-12.0)
[2017-03-29 07:01] LABS: THYROID STIMULATING HORMONE 4.94 uIu/ml (0.300-4.500)
[2017-03-29] MEDS: TRAMADOL HCL 50 MG TAB PO SCH (07:48)
[2017-03-29] MEDS: MAGNESIUM OXIDE 400 MG TAB PO SCH ×2 (07:49→19:51)
[2017-03-29] MEDS: PANTOprazole SOD 40 MG TAB PO SCH (07:49)
[2017-03-29] MEDS: ESCITALOPRAM OXALATE 10 MG TAB PO SCH (07:49)
[2017-03-29] MEDS: ASPIRIN 81 MG ECTAB PO SCH (07:49)
[2017-03-29] MEDS: POTASSIUM CHLORIDE 20 MEQ TABCR PO SCH ×2 (07:49→19:52)
[2017-03-29] MEDS: AMIODARONE 200 MG TAB PO SCH ×3 (07:50→16:39)
[2017-03-29] MEDS: FUROSEMIDE INJ 40 MG in SYRINGE 0 ML IV SCH ×2 (08:42→16:38)
--- NOTE | 2017-03-29 09:48 | Cardiology Follow-Up ---
Subjective General Date of Service: Mar 29, 2017. Chief Complaint: Symptomatic atrial fibrillation Pt evaluation today including: conversation w/ patient, physical exam, chart review, lab review, review of studies, review of inpatient medication list History of Present Illness Presented with acute on chronic dyspnea on 03/27/2017. Atrial fibrillation with a rapid ventricular response observed. History of atrial fibrillation ~1 year ago, spontaneously converting to sinus. Anticoagulation was not begun due to suggestion of GI bleeding. Typically takes Toprol XL 50 mg in the AM and 100 mg at bedtime Evaluated by Dr. Frey on 03/28/2017. Started on oral amiodarone 200 mg three times per day. On IV heparin since admission. Coumadin anticoagulated initiated on 03/28/2017 at 7.5 mg/day Elevated TSH noted on admission. LFT's not obtained. Telemetry: Currently atrial fibrillation the 80's. Heart rates are controlled when at rest, elevated with any activity. Bradycardic event last observed on telemetry on 03/28/2017 at 23:57:10. EKG dated & timed 29-MAR-2017 @ 06:36:55: Atrial fibrillation at 90 bpm with a right bundle branch block. QT/QTc 406/496 ms. March 27, 2017 TTE Interpretation Summary ([facility], Dr. Frey): The study was technically limited. The left ventricular ejection fraction is grossly normal. Ejection Fraction = 65-70%The right ventricular systolic function is qualitatively normal. The left atrium is mildly dilated. The right atrium is mildly dilated. No significant valvular pathology. No VSD identified by this technically limited study. Diagnostic cardiac catheterization performed at [facility] on January 19, [address] Lenny Wallis due to dyspnea and abnormal stress testing revealed right dominant coronary anatomy. RCA with a distal 40% stenosis. LM was angiographically normal. LAD was medium in size with a 50% stenosis in the mid vessel. The left circumflex was described as a large vessel with minimal luminal irregularities. LV gram revealed a mildly enlarged LV with mild global hypokinesis, EF estimated at 50%. Allergies Coded Allergies: No Known Allergies (Unverified , `, 03/27/17) Social History Smoking Status: Never Smoker Hx Tobacco Use In Past Year?: No Hx Alcohol Use - Type And Amou: Yes (very rare, occasional during holidays) Hx Substance Use - Type And Am: No Problem List Medical Problems: (1) Atrial fibrillation with rapid ventricular response Status: Acute (2) Atrial fibrillation with RVR Status: Acute (3) New onset a-fib Status: Acute (4) Ureteral stone Status: Acute Physical Exam Vital Signs Last Vital Signs Documentation Date Time Temp Pulse Resp B/P (MAP) Pulse Ox O2 Delivery O2 Flow Rate FiO2 03/29/17 07:14 36.7 87 20 119/79 (92) 96 Room Air 03/27/17 11:58 98 Physical Exam Constitutional: General Apperance: obese Level of Distress: NAD Psychiatric: Mental Status: active & alert Orientation: to time, to place, to person Memory: recent memory normal, remote memory normal Head: normocephalic, atraumatic Eyes: Pupils: PERRLA Neck: pertinent finding (No JVD) Lungs: Respiratory effort: no dyspnea Auscultation: no wheezing, no rales/crackles, no rhonchi, deminished air movement, decreased breath sounds Cardiovascular: Heart Auscultation: no murmurs, tachycardia, irregular rate rhythm Peripheral Pulses: Radial Pulse: normal on the left, normal on the right Dorsalis Pedis Pulse: absent on the left, absent on the right Extremities: no cyanosis, no clubbing, edema Neurologic: Cranial Nerves: grossly intact Assessment and Plan Assessment and Plan Presentation with symptomatic atrial fibrillation with rapid ventricular response. Duration appears to be greater than 48 hours. CHADS2 Score 2/6 Dilated left and right atrium. Morbid obesity. Observed nocturnal hypoxemia. Suspected sleep apnea. Nonobstructive coronary artery disease by catheterization as detailed above. Preserved LV systolic function No significant valvular disease RECOMMENDATIONS: Check LFT's. Reassess electrolytes and CBC today. Daily PT/INR. Continue metoprolol and amiodarone as presently prescribed. Risks discussed with patient. Continue Heparin bridge to proper Coumadin anticoagulation Continue telemetry given the atrial fibrillation with a RVR and the bradycardic event on 03/28/2017 at 23:57:10. Direct current cardioversion after proper anticoagulation achieved, likely as an outpatient with anesthesia. CARDIOLOGY ATTENDING ADDENDUM: The patient was seen and personally examined. Agree with Derrell Umaña PA-C's findings and plans as documented above. Let's see if respiratory can start him on CPAP while in the hospital Laboratory Results Last 24 Hours Test 03/29/17 06:03 03/29/17 09:24 Prothrombin Time 11.5 SECONDS Prothromb Time International Ratio 1.1 Activated Partial Thromboplast Time 50.1 SECONDS Partial Thromboplastin Ratio 1.9 Triglycerides Level 90 mg/dl Cholesterol Level 98 mg/dl HDL Cholesterol 49 mg/dl LDL Cholesterol, Calculated 31 mg/dl VLDL Cholesterol, Calculated 18 mg/dl Cholesterol/HDL Ratio 2.0 Thyroid Stimulating Hormone (TSH) 4.940 uIu/ml Thyroxine (T4) 6.4 mcg/dl
[2017-03-29 09:55] LABS: MEAN CELL VOLUME 84.1 fL (80-100); MEAN CORPUSCULAR HEMOGLOBIN 26.6 pg (25-34); MEAN CORPUSCULAR HGB CONC 31.6 g/dl (32-36); MEAN PLATELET VOLUME 8.2 fL (7.4-10.4); PLATELET COUNT 158 K/uL (130-400); WHITE BLOOD COUNT 6.73 K/uL (4.8-10.8)
[2017-03-29 10:19] LABS: BUN/CREATININE RATIO 10.7 (10-20); CREATININE 1.04 mg/dl (0.60-1.40); POTASSIUM 3.8 mmol/L (3.5-5.1)
[2017-03-29 10:22] LABS: ALB/GLOB RATIO 0.9 (0.9-2)
--- NOTE | 2017-03-29 11:44 | Clinical Documentation Query ---
CLINICAL DOCUMENTATION QUERY Query #1/2 57 year old male who presents to the Emergency Room with complaints of shortness of breath found to be in Afib, In your clinical opinion is this patient being managed for: ( ) Obesity hypoventilation syndrome trigger recurrent Afib with RVR. ( ) Not Agree ( ) Other explanation of clinical findings (Please Explain) ( ) Unable to determine (Please Define) ( ) Need to Discuss The medical record reflects the following clinical findings, treatment, and risk factors. Clinical Indicators: Morbid obesity, BMI 61.3, suspected sleep apnea per cardiology, oximetry report revealed 49 events with O2 sats <90%. Observed nocturnal hypoxemia. +Echo showed normal EF with dilated left and right atrium. Treatment: Cardiology consult, q4hr pulse oxymetry, overnight pulse ox, O2, IV Lasix BID, telemetry, I/O's, daily weights, Risk Factors: Age & Obesity Query #2/2 This patient is being treated BID with IV Lasix. In your clinical opinion is this patient being managed for: ( ) Acute on chronic preserved EF CHF. ( ) Not Agree ( ) Other explanation of clinical findings (Please Explain) ( ) Unable to determine (Please Define) ( ) Need to Discuss The medical record reflects the following clinical findings, treatment, and risk factors. Clinical Indicators: nocturnal hypoxia 88%, tachycardia 139. Echo showing Ejection Fraction = 65-70%The right ventricular systolic function is qualitatively normal. The left atrium is mildly dilated. The right atrium is mildly dilated. Treatment: IV Lasix BID Risk Factors: Age, Afib with RVR, Obesity Please clarify and document your clinical opinion in the progress notes and discharge summary. Terms such as "probable", "suspected", "likely", "questionable", "possible", or "still to be ruled out" are acceptable. IF IN AGREEMENT, YOU MUST DOCUMENT ABOVE DIAGNOSTIC STATEMENT IN DAILY PROGRESS NOTES AND DISCHARGE SUMMARY. This document is not part of the patient's record. Thank You, Dominic Bolden RN [phone]
--- NOTE | 2017-03-29 15:46 | Progress Note ---
Internal Med Progress Note Date of Service: Mar 29, 2017. Provider Documentation: SUBJECTIVE: resting comfortably slept ok no chest pain no sob ambulating in room fine eating fine no palpitations says when he is ambulating his heart rates not going up OBJECTIVE: Vital Signs-as noted below Exam: General-alert and awake. Not in distress Eyes- no pallor no icterus ENT-normal hearing Neck-no neck masses Lungs-cta b/l no wheezing present no crackles Heart-s1 and s2 heard irregular rhythm no murmurs Abdomen-soft bowel sounds present non tender no distension Extremities-no erythema lower extremity edema present Neuro-alert and awake moves extremities Lab data as noted below. ASSESSMENT & PLAN: 57M WITH HX OF PAF, NON OBSTRUCTIVE CAD, DM AND HTN AND OBESITY PRESENTS WITH SOB, ORTHOPNEA AND IRREGULAR PULSE AND FOUND TO BE IN RAPID AFB. CURRENTLY ON PO AMIODARONE AND PO LOPRESSOR 50MG QID. HE WAS ALSO ADVISED TO INCREASE HIS HOME LASIX FOR SOB AND LOWER EXTREMITY EDEMA AND IT WAS NOT HELPING. WAS PLACED ON IV LASIX 40MG BID. SYMPTOMS IMPROVED.BUT STILL IN AFIB. STARTED ON HEPARIN AND COUMADIN. HEMOCCULT NEGATIVE.NEEDS SLEEP STUDY.CARDIOVERSION PER CARDIOLOGY.POSSIBLE D/C IN 1-2 DAYS ATRIAL FIBRILLATION Recurrent atrial fibrillation with rapid ventricular response.(HAD A FIB IN OCTOBER 2015 BUT NOT ON ANTICOAGULATION FOR QUESTIONABLE HEME POSITIVE STOOLS) CHADS2-VASc score = 3. d dimer elevated cta chest and venous Doppler negative study started on iv heparin and and placed on po Lopressor 50mg qid cardiology started on amiodarone echo unremarkable except for mild left and right atrial enlargement hx of hemepositive stools and underwent egd and colonoscopy which were unremarkable except polypectomy heme stools negative here stated on Coumadin' F/U INR NEEDS F/U WITH COUMADIN CLINIC ON DISCHARGE cardioversion as out patient as per cardiology will monitor Sleep apnea? has obesity possible contributing to a fib nocturnal pule ox study was ok- no continuous desaturation of less than 88% for equal or greater than 4minutes but sleep study as out patient CORONARY ARTERY DISEASE Cardiac cath 2013 showed moderate disease (50% LAD, 40% RCA). started on ASA. will check lipid profile- ldl 31, hdl 49 Continue metoprolol. DYSPNEA Possibly due to rapid AF. No overt pulmonary edema on chest films. Lower extremity edema acute diastolic chf? echo unremarkable most likely from obesity and venous insufficiency on iv lasix- will continue for now D/ CARDIOLOGY FOR HOME LASIX DOSE HYPERTENSION Titrate metoprolol. will monitor DM TYPE 2 Diet-controlled since gastric bypass. Random glucose in ED 97. hba1c 5.2 HYPOTHYROIDISM TSH high Continue levothyroxine. will recheck thyroid profile in am tsh 4.9. Normal t4 repeat labs in 4-6 weeks DEPRESSION / INSOMNIA on escitalopram, trazodone. VTE PROPHYLAXIS IV heparin --> warfarin. Ambulate. RESUSCITATION STATUS Full code. DISPOSITION Monitor in tele to be determined Internal Medicine follow-up with Dr. Roman. . Vital Signs: Date Time Temp Pulse Resp B/P (MAP) Pulse Ox O2 Delivery O2 Flow Rate FiO2 03/29/17 16:00 Room Air 03/29/17 15:45 36.6 84 18 120/83 (95) 95 Room Air 03/29/17 12:00 Room Air 03/29/17 11:28 36.7 106 20 115/78 (90) 97 Room Air 03/29/17 08:00 Room Air 03/29/17 07:14 36.7 87 20 119/79 (92) 96 Room Air 03/29/17 05:25 Room Air 03/29/17 04:00 Room Air 03/29/17 03:57 36.6 81 20 123/82 (96) 92 Room Air 03/29/17 00:16 36.6 85 18 123/85 (98) 97 Room Air 03/29/17 00:00 Room Air 03/28/17 20:00 Room Air 03/28/17 18:58 36.9 89 16 109/74 (86) 95 Room Air Lab Results: Results Past 24 Hours Test 03/29/17 06:03 03/29/17 09:39 Range/Units Prothrombin Time 11.5 9.0-12.0 SECONDS Prothromb Time International Ratio 1.1 0.9-1.1 Activated Partial Thromboplast Time 50.1 21.0-31.0 SECONDS Partial Thromboplastin Ratio 1.9 Triglycerides Level 90 0-150 mg/dl Cholesterol Level 98 0-200 mg/dl HDL Cholesterol 49 mg/dl LDL Cholesterol, Calculated 31 mg/dl VLDL Cholesterol, Calculated 18 mg/dl Cholesterol/HDL Ratio 2.0 Thyroid Stimulating Hormone (TSH) 4.940 0.300-4.500 uIu/ml Thyroxine (T4) 6.4 4.5-10.9 mcg/dl White Blood Count 6.73 4.8-10.8 K/uL Red Blood Count 4.40 4.7-6.1 M/uL Hemoglobin 11.7 14.0-18.0 g/dL Hematocrit 37.0 42-52 % Mean Corpuscular Volume 84.1 80-100 fL Mean Corpuscular Hemoglobin 26.6 25-34 pg Mean Corpuscular Hemoglobin Concent 31.6 32-36 g/dl RDW Standard Deviation 47.0 36.4-46.3 fL RDW Coefficient of Variation 15.3 11.5-14.5 % Platelet Count 158 130-400 K/uL Mean Platelet Volume 8.2 7.4-10.4 fL Sodium Level 141 136-145 mmol/L Potassium Level 3.8 3.5-5.1 mmol/L Chloride Level 104 98-107 mmol/L Carbon Dioxide Level 30 21-32 mmol/L Anion Gap 7.0 3-11 mmol/L Blood Urea Nitrogen 11 7-18 mg/dl Creatinine 1.04 0.60-1.40 mg/dl Est Creatinine Clear Calc Drug Dose 130.5 ml/min Estimated GFR () 91.9 Estimated GFR (Non- 79.3 BUN/Creatinine Ratio 10.7 10-20 Random Glucose 84 70-99 mg/dl Calcium Level 8.0 8.5-10.1 mg/dl Magnesium Level 2.0 1.8-2.4 mg/dl Total Bilirubin 0.7 0.2-1 mg/dl Aspartate Amino Transf (AST/SGOT) 16 15-37 U/L Alanine Aminotransferase (ALT/SGPT) 27 12-78 U/L Alkaline Phosphatase 141 45-117 U/L Total Protein 6.8 6.4-8.2 gm/dl Albumin 3.3 3.4-5.0 gm/dl Globulin 3.5 2.5-4.0 gm/dl Albumin/Globulin Ratio 0.9 0.9-2
[2017-03-29] MEDS: WARFARIN SOD 7.5 MG TAB PO SCH (16:39)
[2017-03-29] MEDS: TRAZODONE HCL 50 MG TAB PO SCH (19:59)
[2017-03-30] VITALS (7 sets, daily range): BP systolic 93–118; BP diastolic 60–83; PULSE 76–90; TEMP 36.6–37.5; O2SAT 93–98
[2017-03-30 05:13] LABS: INR 1.1 (0.9-1.1); PROTHROMBIN TIME (PATIENT) 11.7 SECONDS (9.0-12.0)
[2017-03-30] MEDS: METOPROLOL TARTRATE 50 MG TAB PO SCH ×4 (05:25→23:13)
[2017-03-30] MEDS: LEVOTHYROXINE 50 MCG TAB PO SCH (05:26)
[2017-03-30] MEDS: AMIODARONE 200 MG TAB PO SCH ×3 (07:47→16:49)
[2017-03-30] MEDS: ASPIRIN 81 MG ECTAB PO SCH (08:37)
[2017-03-30] MEDS: PANTOprazole SOD 40 MG TAB PO SCH (08:37)
[2017-03-30] MEDS: ESCITALOPRAM OXALATE 10 MG TAB PO SCH (08:38)
[2017-03-30] MEDS: FUROSEMIDE INJ 40 MG in SYRINGE 0 ML IV SCH ×2 (08:38→16:04)
[2017-03-30] MEDS: POTASSIUM CHLORIDE 20 MEQ TABCR PO SCH ×2 (08:38→20:41)
[2017-03-30] MEDS: MAGNESIUM OXIDE 400 MG TAB PO SCH ×2 (08:38→20:41)
[2017-03-30] MEDS: TRAMADOL HCL 50 MG TAB PO SCH (08:39)
[2017-03-30] MEDS: HEPARIN 25,000 UNIT/500ML D5W 500 ML IV PRN (09:52)
--- NOTE | 2017-03-30 09:53 | Cardiology Follow-Up ---
Subjective General Date of Service: Mar 30, 2017. Chief Complaint: Symptomatic atrial fibrillation Pt evaluation today including: conversation w/ patient, physical exam, chart review, lab review, review of studies, review of inpatient medication list History of Present Illness Patient seen and examined. Dyspneic with activities within his hospital room. Comfortable at rest. Heart rates are ~70-100 at rest, up to 150 with activity, intermittently bradycardic into the 30's intermittently throughout the night. On IV heparin since admission. Coumadin anticoagulated initiated on 03/28/2017 at 7.5 mg/day. INR 1.1 today March 27, 2017 TTE Interpretation Summary ([facility], Dr. Frey): The study was technically limited. The left ventricular ejection fraction is grossly normal. Ejection Fraction = 65-70%The right ventricular systolic function is qualitatively normal. The left atrium is mildly dilated. The right atrium is mildly dilated. No significant valvular pathology. No VSD identified by this technically limited study. Diagnostic cardiac catheterization performed at [facility] on January 19, [address] Lenny Wallis due to dyspnea and abnormal stress testing revealed right dominant coronary anatomy. RCA with a distal 40% stenosis. LM was angiographically normal. LAD was medium in size with a 50% stenosis in the mid vessel. The left circumflex was described as a large vessel with minimal luminal irregularities. LV gram revealed a mildly enlarged LV with mild global hypokinesis, EF estimated at 50%. Allergies Coded Allergies: No Known Allergies (Unverified , `, 03/27/17) Social History Smoking Status: Never Smoker Hx Tobacco Use In Past Year?: No Hx Alcohol Use - Type And Amou: Yes (very rare, occasional during holidays) Hx Substance Use - Type And Am: No Problem List Medical Problems: (1) Atrial fibrillation with rapid ventricular response Status: Acute (2) Atrial fibrillation with RVR Status: Acute (3) New onset a-fib Status: Acute (4) Ureteral stone Status: Acute Physical Exam Vital Signs Last Vital Signs Documentation Date Time Temp Pulse Resp B/P (MAP) Pulse Ox O2 Delivery O2 Flow Rate FiO2 03/30/17 08:52 Room Air 03/30/17 07:30 37.5 78 18 111/74 (86) 95 03/27/17 11:58 98 Physical Exam Constitutional: General Apperance: obese Level of Distress: NAD Psychiatric: Mental Status: active & alert Orientation: to time, to place, to person Memory: recent memory normal, remote memory normal Head: normocephalic, atraumatic Eyes: Pupils: PERRLA Neck: pertinent finding (No JVD) Lungs: Respiratory effort: no dyspnea Auscultation: no wheezing, no rales/crackles, no rhonchi, deminished air movement, decreased breath sounds Cardiovascular: Heart Auscultation: no murmurs, tachycardia, irregular rate rhythm Peripheral Pulses: Radial Pulse: normal on the left, normal on the right Dorsalis Pedis Pulse: absent on the left, absent on the right Extremities: no cyanosis, no clubbing, edema Neurologic: Cranial Nerves: grossly intact Assessment and Plan Assessment and Plan Presentation with symptomatic atrial fibrillation with rapid ventricular response. Duration appears to be greater than 48 hours. CHADS2 Score 2/6 Dilated left and right atrium. Morbid obesity. Observed nocturnal hypoxemia. Suspected sleep apnea. Nonobstructive coronary artery disease by catheterization as detailed above. Preserved LV systolic function No significant valvular disease RECOMMENDATIONS: Continue oral metoprolol and amiodarone Continue Heparin to proper Coumadin anticoagulation. Maintain telemetry ? screening KIMBERLY with possible cardioversion this admission versus outpatient DCC after at least 3 weeks of proper anticoagulation. CARDIOLOGY ATTENDING ADDENDUM: The patient was seen and personally examined. Agree with Derrell Umaña PA-C's findings and plans as documented above. Conservative management with rate control and A/C for now. Cardioversion after a few weeks of A/C Laboratory Results Last 24 Hours Test 03/30/17 04:39 Prothrombin Time 11.7 SECONDS Prothromb Time International Ratio 1.1 Activated Partial Thromboplast Time 51.3 SECONDS Partial Thromboplastin Ratio 2.0
--- NOTE | 2017-03-30 15:11 | Progress Note ---
Internal Med Progress Note Date of Service: Mar 30, 2017. Provider Documentation: SUBJECTIVE: patient has been on telemetry monitoring and asymptomatic. has had heart rate overnight as low around 30 beats per minute with rate as fast as 130 beats per minute on telemetry monitoring, at bedside has been having irregular beats but closer to 90 to 100 beats per minute in the AM hours. patient denies chest pain or palpitations or shortness of breath, OBJECTIVE: Exam: General-alert and awake. Not in distress Eyes- no pallor no icterus ENT-normal hearing Neck-no neck masses Lungs-cta b/l no wheezing present no crackles Heart-s1 and s2 heard irregular rhythm no murmurs Abdomen-soft bowel sounds present non tender no distension Extremities-no erythema lower extremity edema present Neuro-alert and awake moves extremities ASSESSMENT & PLAN: 57M WITH HX OF PAF, NON OBSTRUCTIVE CAD, DM AND HTN AND OBESITY presents with shortness of breath, orthopnea and atrial fibrillation in RVR ATRIAL FIBRILLATION Recurrent atrial fibrillation with rapid ventricular response -Lopressor 50 mg PO q6 hours, cardiology following the patient but no recommendations to changed Lopressor doses because of telemetry recorded periods of bradycardia -Continue telemetry -On IV heparin starting from 03/27/17 and receiving Coumadin 7.5 mg qhs from , currently INR subtherapeutic 1.1, continue coumadin for anticoagulation -On this admission: started amiodarone 200 mg TID from 03/28/17, patient is still not in sinus rhythm -TTE 03/28/17: The study was technically limited. The left ventricular ejection fraction is grossly normal. Ejection Fraction = 65-70%. The right ventricular systolic function is qualitatively normal. The left atrium is mildly dilated. The right atrium is mildly dilated. No significant vavular pathology. No VSD identified by this technically limited study. Possible Sleep apnea -has obesity, possible contribution to atrial fibrillation -nocturnal pule ox study was okay and there was no continuous desaturation of less than 88% for equal or greater than 4minutes -may benefit from official sleep study as outpatient CORONARY ARTERY DISEASE -Cardiac cath 2013 showed moderate disease (50% LAD, 40% RCA). -started on ASA. -Continue Lopressor DYSPNEA -Possibly due to rapid AF. -No overt pulmonary edema on chest films. Lower extremity edema -likely from venous insufficiency -On IV Lasix- will continue for now HYPERTENSION -Titrate Lopressor DM TYPE 2 Diet-controlled since gastric bypass. Random glucose in ED 97. hba1c 5.2 HYPOTHYROIDISM TSH high, Continue levothyroxine, repeat labs in 4-6 weeks DEPRESSION / INSOMNIA on escitalopram, trazodone. VTE PROPHYLAXIS IV heparin with bridge to warfarin. Ambulate. RESUSCITATION STATUS Full code. DISPOSITION Monitor in telemetry as inpatient will need Internal Medicine follow-up with Dr. Roman, anticoagulation clinic, cardiology follow up as outpatient, and sleep study when discharged Vital Signs: Date Time Temp Pulse Resp B/P (MAP) Pulse Ox O2 Delivery O2 Flow Rate FiO2 03/30/17 16:17 36.8 90 16 118/83 (95) 96 Room Air 03/30/17 15:19 36.8 88 16 110/64 (79) 98 03/30/17 12:00 Room Air 03/30/17 12:00 Room Air 03/30/17 11:04 36.9 88 18 105/70 (82) 94 03/30/17 08:52 Room Air 03/30/17 08:00 Room Air 03/30/17 07:30 37.5 78 18 111/74 (86) 95 03/30/17 04:00 Room Air 03/30/17 03:39 36.6 76 18 109/74 (86) 96 Room Air 03/30/17 00:00 Room Air 03/29/17 23:40 36.5 86 18 105/71 (82) 94 Room Air 03/29/17 20:00 Room Air 03/29/17 19:32 36.8 95 18 122/81 (95) 94 Room Air Lab Results: Results Past 24 Hours Test 03/30/17 04:39 Range/Units Prothrombin Time 11.7 9.0-12.0 SECONDS Prothromb Time International Ratio 1.1 0.9-1.1 Activated Partial Thromboplast Time 51.3 21.0-31.0 SECONDS Partial Thromboplastin Ratio 2.0
[2017-03-30] MEDS: WARFARIN SOD 7.5 MG TAB PO SCH (16:05)
[2017-03-30] MEDS: TRAZODONE HCL 50 MG TAB PO SCH (20:41)
[2017-03-31] MEDS: HEPARIN 25,000 UNIT/500ML D5W 500 ML IV PRN (01:03)
[2017-03-31 03:42] VITALS: BP 110/68; PULSE 82; TEMP 36.6; O2SAT 97
[2017-03-31 04:31] LABS: BASO % 0.6 %; BASO ABS # 0.04 K/uL (0-0.2); COMPLETE YES; EOS % 2.6 %; HEMATOCRIT 36.9 % (42-52); IG% 0.1 %; LYMPH ABS # 1.81 K/uL (1.2-3.4); MEAN CORPUSCULAR HEMOGLOBIN 26.7 pg (25-34); MEAN CORPUSCULAR HGB CONC 31.4 g/dl (32-36); MEAN PLATELET VOLUME 8.5 fL (7.4-10.4); MONO % 8.9 %; NEUT % 62.8 %; PLATELET COUNT 158 K/uL (130-400); RED BLOOD COUNT 4.34 M/uL (4.7-6.1); WHITE BLOOD COUNT 7.23 K/uL (4.8-10.8)
[2017-03-31 04:53] LABS: BUN/CREATININE RATIO 8.1 (10-20); CALCIUM 8.3 mg/dl (8.5-10.1); CREATININE 1.18 mg/dl (0.60-1.40); POTASSIUM 4.1 mmol/L (3.5-5.1)
[2017-03-31 05:12] LABS: INR 1.1 (0.9-1.1); PARTIAL THROMBOPLASTIN RATIO 2.1; PROTHROMBIN TIME (PATIENT) 12.3 SECONDS (9.0-12.0)
[2017-03-31] MEDS: METOPROLOL TARTRATE 50 MG TAB PO SCH ×2 (06:16→12:02)
[2017-03-31] MEDS: LEVOTHYROXINE 50 MCG TAB PO SCH (06:16)
[2017-03-31 07:22] VITALS: BP 109/72; PULSE 73; TEMP 36.5; O2SAT 95
[2017-03-31] MEDS: AMIODARONE 200 MG TAB PO SCH ×3 (08:19→16:57)
[2017-03-31] MEDS: FUROSEMIDE INJ 40 MG in SYRINGE 0 ML IV SCH ×2 (08:29→16:40)
[2017-03-31] MEDS: POTASSIUM CHLORIDE 20 MEQ TABCR PO SCH ×2 (08:30→20:28)
[2017-03-31] MEDS: ASPIRIN 81 MG ECTAB PO SCH (08:30)
[2017-03-31] MEDS: ESCITALOPRAM OXALATE 10 MG TAB PO SCH (08:31)
[2017-03-31] MEDS: MAGNESIUM OXIDE 400 MG TAB PO SCH ×2 (08:31→20:27)
[2017-03-31] MEDS: PANTOprazole SOD 40 MG TAB PO SCH (08:31)
[2017-03-31] MEDS: TRAMADOL HCL 50 MG TAB PO SCH (08:36)
--- NOTE | 2017-03-31 09:21 | Cardiology Follow-Up ---
Subjective General Date of Service: Mar 31, 2017. Chief Complaint: Symptomatic atrial fibrillation Pt evaluation today including: conversation w/ patient, physical exam, chart review, lab review, review of studies, review of inpatient medication list History of Present Illness Patient seen and examined. No new or worsening issues. Comfortable at rest. Dyspneic with activity. Heart rates on telemetry over the last 24 hours have ranged from ~40 to 150 bpm. Bradycardia observed overnight with a few 1-2 second pauses On IV heparin since admission. Coumadin initiated on 03/28/2017. INR 1.1 today. Allergies Coded Allergies: No Known Allergies (Unverified , `, 03/27/17) Social History Smoking Status: Never Smoker Hx Tobacco Use In Past Year?: No Hx Alcohol Use - Type And Amou: Yes (very rare, occasional during holidays) Hx Substance Use - Type And Am: No Problem List Medical Problems: (1) Atrial fibrillation with rapid ventricular response Status: Acute (2) Atrial fibrillation with RVR Status: Acute (3) New onset a-fib Status: Acute (4) Ureteral stone Status: Acute Physical Exam Vital Signs Last Vital Signs Documentation Date Time Temp Pulse Resp B/P (MAP) Pulse Ox O2 Delivery O2 Flow Rate FiO2 03/31/17 08:00 Room Air 03/31/17 07:22 36.5 73 12 109/72 (84) 95 03/27/17 11:58 98 Physical Exam Constitutional: General Apperance: obese Level of Distress: NAD Psychiatric: Mental Status: active & alert Orientation: to time, to place, to person Memory: recent memory normal, remote memory normal Head: normocephalic, atraumatic Eyes: Pupils: PERRLA Neck: pertinent finding (No JVD) Lungs: Respiratory effort: no dyspnea Auscultation: no wheezing, no rales/crackles, no rhonchi, deminished air movement, decreased breath sounds Cardiovascular: Heart Auscultation: no murmurs, tachycardia, irregular rate rhythm Peripheral Pulses: Radial Pulse: normal on the left, normal on the right Dorsalis Pedis Pulse: absent on the left, absent on the right Extremities: no cyanosis, no clubbing, edema Neurologic: Cranial Nerves: grossly intact Assessment and Plan Assessment and Plan Presentation with symptomatic atrial fibrillation with rapid ventricular response. Duration appears to be greater than 48 hours. CHADS2 Score 2/6 Dilated left and right atrium. Morbid obesity. Observed nocturnal hypoxemia. Suspected sleep apnea. Nonobstructive coronary artery disease. Preserved LV systolic function No significant valvular disease RECOMMENDATIONS: Change Lopressor to Toprol XL Continue oral amiodarone loading Discontinue IV furosemide, resuming oral furosemide in the AM of 04/01/17 Heparin to proper Coumadin anticoagulation. Maintain telemetry Consensus is for outpatient DCC after loading amiodarone and at least 3 weeks of proper Coumadin anticoagulation. CARDIOLOGY ATTENDING ADDENDUM: The patient was seen and personally examined. Agree with Derrell Umaña PA-C's findings and plans as documented above. Laboratory Results Last 24 Hours Test 03/31/17 04:13 White Blood Count 7.23 K/uL Red Blood Count 4.34 M/uL Hemoglobin 11.6 g/dL Hematocrit 36.9 % Mean Corpuscular Volume 85.0 fL Mean Corpuscular Hemoglobin 26.7 pg Mean Corpuscular Hemoglobin Concent 31.4 g/dl Platelet Count 158 K/uL Mean Platelet Volume 8.5 fL Neutrophils (%) (Auto) 62.8 % Lymphocytes (%) (Auto) 25.0 % Monocytes (%) (Auto) 8.9 % Eosinophils (%) (Auto) 2.6 % Basophils (%) (Auto) 0.6 % Neutrophils # (Auto) 4.54 K/uL Lymphocytes # (Auto) 1.81 K/uL Monocytes # (Auto) 0.64 K/uL Eosinophils # (Auto) 0.19 K/uL Basophils # (Auto) 0.04 K/uL RDW Standard Deviation 47.8 fL RDW Coefficient of Variation 15.4 % Immature Granulocyte % (Auto) 0.1 % Immature Granulocyte # (Auto) 0.01 K/uL Prothrombin Time 12.3 SECONDS Prothromb Time International Ratio 1.1 Activated Partial Thromboplast Time 55.7 SECONDS Partial Thromboplastin Ratio 2.1 Sodium Level 141 mmol/L Potassium Level 4.1 mmol/L Chloride Level 102 mmol/L Carbon Dioxide Level 33 mmol/L Anion Gap 6.0 mmol/L Blood Urea Nitrogen 10 mg/dl Creatinine 1.18 mg/dl Est Creatinine Clear Calc Drug Dose 113.8 ml/min Estimated GFR () 78.9 Estimated GFR (Non- 68.1 BUN/Creatinine Ratio 8.1 Random Glucose 94 mg/dl Calcium Level 8.3 mg/dl Total Bilirubin 0.6 mg/dl Aspartate Amino Transf (AST/SGOT) 20 U/L Alanine Aminotransferase (ALT/SGPT) 25 U/L Alkaline Phosphatase 117 U/L Pro-B-Type Natriuretic Peptide 774 pg/ml Total Protein 6.3 gm/dl Albumin 3.1 gm/dl Globulin 3.2 gm/dl Albumin/Globulin Ratio 1.0
--- NOTE | 2017-03-31 10:20 | Progress Note ---
Medicine Progress Note Date & Time of Visit: Mar 31, 2017 at 10:14. (Silvia Paz, P.A.-C.) Subjective Patient seen and examined. Resting comfortably in bed. Was relatively asymptomatic overnight except for feeling palpitations around 4am. Review of telemetry monitoring shows HR between 60-high 80s, with an average HR of low 70s. Patient denies any lightheadedness, headache, CP, SOB, worsening LE swelling. (Silvia Paz, P.A.-C.) Objective Last 8 Hrs Date Time Temp Pulse Resp B/P (MAP) Pulse Ox O2 Delivery O2 Flow Rate FiO2 03/31/17 09:49 Room Air 03/31/17 08:00 Room Air 03/31/17 07:22 36.5 73 12 109/72 (84) 95 Room Air 03/31/17 04:00 Room Air 03/31/17 03:42 36.6 82 20 110/68 (82) 97 Room Air Physical Exam: General appearance: awake and alert, obese, no deformities Eyes: Sclera: white, conjuntiva: pink. Eyelids without erythema or lesions. PERRL. Pupils and irises round and symmetric. ENT: External ears without lesions, masses or tenderness. Nose with pink mucosa , no discharge. Oropharynx mucosa intact. No lesions, masses. Poor dentition. Neck: Supple, without lesions or masses. Trachea midline. Thyroid is non- enlarged, non-tender. Respiratory: Normal respiratory effort. No intercostal retractions or use of accessory muscles. Chest is non-tender. Clear breath sounds on auscultation. No wheezing, rales, rhonci. Cardiovascular: PMI palpable, non-displaced. S1 S2 normal, no murmurs, gallops, rubs. No edema in extremities. GI: No masses or abnormal pulsations visualized. Bowel sounds normal. Abdomen soft, non-tender. No hepatomegaly or splenomegaly. MSK: No clubbing, cyanosis of digits. Normal capillary refill. Bilateral UE and LE without asymmetry, defects or tenderness. No muscle atrophy or abnormal movements. Skin: No rashes, lesions, ulcers. Palpation is normal, no induration or sub- cutaneous nodules. Neuro: CN II-XII intact. No motor or sensory deficits. Psych: Normal judgement, insight. Alert and oriented to person, place, time. Normal mood and affect. Laboratory Results: Last 24 Hours Test 03/31/17 04:13 White Blood Count 7.23 K/uL Red Blood Count 4.34 M/uL Hemoglobin 11.6 g/dL Hematocrit 36.9 % Mean Corpuscular Volume 85.0 fL Mean Corpuscular Hemoglobin 26.7 pg Mean Corpuscular Hemoglobin Concent 31.4 g/dl Platelet Count 158 K/uL Mean Platelet Volume 8.5 fL Neutrophils (%) (Auto) 62.8 % Lymphocytes (%) (Auto) 25.0 % Monocytes (%) (Auto) 8.9 % Eosinophils (%) (Auto) 2.6 % Basophils (%) (Auto) 0.6 % Neutrophils # (Auto) 4.54 K/uL Lymphocytes # (Auto) 1.81 K/uL Monocytes # (Auto) 0.64 K/uL Eosinophils # (Auto) 0.19 K/uL Basophils # (Auto) 0.04 K/uL RDW Standard Deviation 47.8 fL RDW Coefficient of Variation 15.4 % Immature Granulocyte % (Auto) 0.1 % Immature Granulocyte # (Auto) 0.01 K/uL Prothrombin Time 12.3 SECONDS Prothromb Time International Ratio 1.1 Activated Partial Thromboplast Time 55.7 SECONDS Partial Thromboplastin Ratio 2.1 Sodium Level 141 mmol/L Potassium Level 4.1 mmol/L Chloride Level 102 mmol/L Carbon Dioxide Level 33 mmol/L Anion Gap 6.0 mmol/L Blood Urea Nitrogen 10 mg/dl Creatinine 1.18 mg/dl Est Creatinine Clear Calc Drug Dose 113.8 ml/min Estimated GFR () 78.9 Estimated GFR (Non- 68.1 BUN/Creatinine Ratio 8.1 Random Glucose 94 mg/dl Calcium Level 8.3 mg/dl Total Bilirubin 0.6 mg/dl Aspartate Amino Transf (AST/SGOT) 20 U/L Alanine Aminotransferase (ALT/SGPT) 25 U/L Alkaline Phosphatase 117 U/L Pro-B-Type Natriuretic Peptide 774 pg/ml Total Protein 6.3 gm/dl Albumin 3.1 gm/dl Globulin 3.2 gm/dl Albumin/Globulin Ratio 1.0 (Silvia Paz ., P.A.-C.) Assessment & Plan This is a 57yo M with a PMH of paroxysmal A Fib, non-obstructive CAD, DM II, HTN and obesity who presents with SOB, orthopnea and A Fib in RVR. Atrial Fibrillation: -Recurrent atrial fibrillation with rapid ventricular response -Dilated left and right atrium. -Per cardio, -Change Lopressor to Toprol XL -Continue oral amiodarone loading -Discontinue IV Lasix, resuming oral Lasix in the AM of (04/01) -Continue heparin until INR therapeutic on coumadin -Telemetry monitoring -Plan for out-patient DCC after loading amiodarone and at least 3 wks of proper anticoagulation on coumadin Subtherapeutic INR: -INR continues to stay at 1.1 -Increase dose from 7.5mg to 10mg tonight -Recheck INR in AM -Continue heparin bridge until INR therapeutic Possible Sleep apnea: -Obesity, possible contribution to atrial fibrillation -Nocturnal pulse ox study was okay and there was no continuous desaturation of less than 88% for equal or greater than 4 minutes -May benefit from official sleep study as outpatient CAD: -Cardiac cath 2013 showed moderate disease (50% LAD, 40% RCA) -Started on ASA. -Toprol XL Dyspnea: -Possibly due to rapid AF -No overt pulmonary edema on chest films Lower extremity edema: -Likely from venous insufficiency -Continue PO Lasix HTN: -Switch to Toprol XL, per cardio DM II: -Diet-controlled since gastric bypass -Random glucose in ED 97 -Hba1c 5.2 Hypothyroidism: -TSH high, Continue levothyroxine, repeat labs in 4-6 weeks Depression, insomnia: -Cont. escitalopram, trazodone. DVT Ppx: IV heparin with bridge to warfarin Code status: FULL PCP: Abel Dispo: Plan to return home once medically stable. Will need Internal Medicine follow-up with Dr. Roman, anticoagulation clinic, cardiology follow up as outpatient, and sleep study when discharged Current Inpatient Medications: Current Inpatient Medications Medications (Trade) Dose Ordered Sig/Efrain Route Start Time Stop Time Status Last Admin Dose Admin Heparin Sodium/ Dextrose 500 ml @ 36 mls/hr [id number] PRN IV 03/27/17 14:15 04/26/17 14:14 03/31/17 01:03 36 MLS/HR Furosemide 40 mg/ Syringe 4 ml @ 4 mls/min BID@0900,1600 IV 03/27/17 16:00 03/31/17 23:00 03/31/17 08:29 4 MLS/MIN Metoprolol Tartrate (Lopressor Tab) 50 mg Q6 PO 03/27/17 18:00 03/31/17 13:00 03/31/17 06:16 50 MG Metoprolol Tartrate (Lopressor Iv) 5 mg Q4 PRN IV 03/27/17 15:00 04/26/17 14:59 03/28/17 12:59 5 MG Escitalopram Oxalate (Lexapro Tab) 10 mg QAM PO 03/28/17 09:00 04/27/17 08:59 03/31/17 08:31 10 MG Levothyroxine Sodium (Synthroid Tab) 50 mcg DAILYBB PO 03/28/17 06:00 04/27/17 05:59 03/31/17 06:16 50 MCG Pantoprazole Sodium (Protonix Tab) 40 mg DAILY PO 03/28/17 09:00 04/27/17 08:59 03/31/17 08:31 40 MG Tramadol HCl (Ultram Tab) 100 mg QAM PO 03/28/17 09:00 04/27/17 08:59 03/31/17 08:36 100 MG Trazodone HCl (Desyrel Tab) 50 mg HS PO 03/27/17 21:00 04/26/17 20:59 03/30/17 20:41 50 MG Potassium Chloride (Klor-Con Tab) 20 meq BID PO 03/27/17 21:00 03/31/17 23:00 03/31/17 08:30 20 MEQ Magnesium Oxide (Mag-Ox Tab) 400 mg BID PO 03/27/17 21:00 04/26/17 20:59 03/31/17 08:31 400 MG Ioversol (Optiray 320) 100 ml UD PRN IV 03/27/17 19:15 03/31/17 19:14 Aspirin (Ecotrin Tab) 81 mg QAM PO 03/28/17 09:00 04/27/17 08:59 03/31/17 08:30 81 MG Amiodarone HCl (Cordarone Tab) 200 mg TIDM PO 03/28/17 16:45 04/27/17 16:44 03/31/17 08:19 200 MG Warfarin Sodium (Coumadin Tab) 10 mg DAILY@16 PO 03/31/17 16:00 04/30/17 15:59 Metoprolol Succinate (Toprol Xl Tab) 100 mg BID PO 03/31/17 21:00 04/30/17 20:59 Furosemide (Lasix Tab) 40 mg QAM PO 04/01/17 09:00 05/01/17 08:59 Potassium Chloride (Klor-Con Tab) 20 meq QAM PO 04/01/17 09:00 05/01/17 08:59 (Silvia Paz ., P.A.-C.) Attending Physician Addendum: Dr. De La Vega: I have seen and examined the patient. I agree with NOAH Paz's assessment and plan. As per cardiology, change Lopressor to Toprol XL; Continue oral amiodaroneloading;discontinue IV furosemide and resuming oral furosemide in the AM of 04/01/17. Because INR has been subtherapeutic while on warfarin 7.5 mg daily, I have increased the warfarin dose 10 mg daily starting today.I have explained this plan to the patient and he agrees. Patient denies new concerns. No pain or shortness of breath. (Taco De La Vega M.D.)
[2017-03-31 12:03] VITALS: BP 104/65; PULSE 96
[2017-03-31 15:38] VITALS: BP 112/70; PULSE 81; TEMP 36.7; O2SAT 96
[2017-03-31] MEDS: WARFARIN SOD 10 MG TAB PO SCH (16:40)
[2017-03-31 19:28] VITALS: BP 107/71; PULSE 90; TEMP 36.7; O2SAT 92
[2017-03-31] MEDS: TRAZODONE HCL 50 MG TAB PO SCH (20:27)
[2017-03-31] MEDS: METOPROLOL SUCC 50MG EXT REL TAB PO SCH (20:28)
[2017-03-31 21:47] VITALS: BP_SYST 111; BP_SYST 117; BP_SYST 123; BP_DIAS 75; BP_DIAS 79; BP_DIAS 80; PULSE 97; O2SAT 94
[2017-04-01] VITALS (12 sets, daily range): BP systolic 100–124; BP diastolic 67–78; PULSE 66–91; TEMP 36.4–36.8; O2SAT 94–98
[2017-04-01] MEDS: LEVOTHYROXINE 50 MCG TAB PO SCH (05:28)
[2017-04-01] MEDS: HEPARIN 25,000 UNIT/500ML D5W 500 ML IV PRN ×2 (05:32→20:17)
[2017-04-01 06:45] LABS: BASO % 0.5 %; BASO ABS # 0.03 K/uL (0-0.2); COMPLETE YES; EOS % 3.7 %; HEMATOCRIT 37.7 % (42-52); IG% 0.2 %; LYMPH % 27.5 %; LYMPH ABS # 1.56 K/uL (1.2-3.4); MEAN CELL VOLUME 85.1 fL (80-100); MEAN CORPUSCULAR HEMOGLOBIN 26.6 pg (25-34); MEAN CORPUSCULAR HGB CONC 31.3 g/dl (32-36); MEAN PLATELET VOLUME 8.5 fL (7.4-10.4); MONO % 10.9 %; NEUT % 57.2 %; PLATELET COUNT 175 K/uL (130-400); RED BLOOD COUNT 4.43 M/uL (4.7-6.1); WHITE BLOOD COUNT 5.67 K/uL (4.8-10.8)
[2017-04-01 06:51] LABS: INR 1.3 (0.9-1.1); PROTHROMBIN TIME (PATIENT) 13.9 SECONDS (9.0-12.0)
[2017-04-01 07:09] LABS: BUN/CREATININE RATIO 9.4 (10-20); CALCIUM 8.8 mg/dl (8.5-10.1); CREATININE 0.99 mg/dl (0.60-1.40); POTASSIUM 3.9 mmol/L (3.5-5.1)
[2017-04-01] MEDS: AMIODARONE 200 MG TAB PO SCH ×3 (07:31→16:36)
[2017-04-01] MEDS: ASPIRIN 81 MG ECTAB PO SCH (07:32)
[2017-04-01] MEDS: PANTOprazole SOD 40 MG TAB PO SCH (07:33)
[2017-04-01] MEDS: METOPROLOL SUCC 50MG EXT REL TAB PO SCH ×2 (07:33→20:13)
[2017-04-01] MEDS: MAGNESIUM OXIDE 400 MG TAB PO SCH ×2 (07:33→20:13)
[2017-04-01] MEDS: ESCITALOPRAM OXALATE 10 MG TAB PO SCH (07:33)
[2017-04-01 07:36] LABS: PARTIAL THROMBOPLASTIN RATIO 2.2
[2017-04-01] MEDS: TRAMADOL HCL 50 MG TAB PO SCH (07:36)
[2017-04-01] MEDS: POTASSIUM CHLORIDE 20 MEQ TABCR PO SCH (08:22)
[2017-04-01] MEDS: FUROSEMIDE 40 MG TAB PO SCH (08:22)
--- NOTE | 2017-04-01 09:56 | Cardiology Follow-Up ---
Subjective General Date of Service: Apr 01, 2017. Chief Complaint: Symptomatic atrial fibrillation Pt evaluation today including: conversation w/ patient, physical exam, chart review, lab review, review of studies, review of inpatient medication list History of Present Illness Patient seen and examined. No new or worsening issues. Comfortable at rest. Dyspneic with activity. Heart rates on telemetry over the last 24 hours have ranged from ~40 to 150 bpm. Currently ~90 bpm. Bradycardia observed overnight with rare 1-2 second pauses On IV heparin since admission. Coumadin initiated on 03/28/2017. INR 1.3 today. Allergies Coded Allergies: No Known Allergies (Unverified , `, 03/27/17) Social History Smoking Status: Never Smoker Hx Tobacco Use In Past Year?: No Hx Alcohol Use - Type And Amou: Yes (very rare, occasional during holidays) Hx Substance Use - Type And Am: No Problem List Medical Problems: (1) Atrial fibrillation with rapid ventricular response Status: Acute (2) Atrial fibrillation with RVR Status: Acute (3) New onset a-fib Status: Acute (4) Ureteral stone Status: Acute Physical Exam Vital Signs Last Vital Signs Documentation Date Time Temp Pulse Resp B/P (MAP) Pulse Ox O2 Delivery O2 Flow Rate FiO2 04/01/17 08:00 98 Room Air 04/01/17 07:38 36.7 91 18 124/74 (91) 03/27/17 11:58 98 Physical Exam Constitutional: General Apperance: obese Level of Distress: NAD Psychiatric: Mental Status: active & alert Orientation: to time, to place, to person Memory: recent memory normal, remote memory normal Head: normocephalic, atraumatic Eyes: Pupils: PERRLA Neck: pertinent finding (No JVD) Lungs: Respiratory effort: no dyspnea Auscultation: no wheezing, no rales/crackles, no rhonchi, deminished air movement, decreased breath sounds Cardiovascular: Heart Auscultation: no murmurs, tachycardia, irregular rate rhythm Peripheral Pulses: Radial Pulse: normal on the left, normal on the right Dorsalis Pedis Pulse: absent on the left, absent on the right Extremities: no cyanosis, no clubbing, edema Neurologic: Cranial Nerves: grossly intact Assessment and Plan Assessment and Plan Presentation with symptomatic atrial fibrillation with rapid ventricular response. Duration appears to be greater than 48 hours. CHADS2 Score 2/6 Dilated left and right atrium. Morbid obesity. Observed nocturnal hypoxemia. Suspected sleep apnea. Nonobstructive coronary artery disease. Preserved LV systolic function No significant valvular disease RECOMMENDATIONS: Toprol XL 100 mg twice a day Amiodarone as prescribed, discharging on 200 mg twice a day when INR therapeutic. Heparin to proper Coumadin anticoagulation. INR goal 2.0 to 3.0. Close outpatient follow-up. Office to call patient post discharge. Cardioversion after amiodarone load and after at least 3 weeks of proper Coumadin anticoagulation. CARDIOLOGY ATTENDING ADDENDUM: The patient was seen and personally examined. Agree with Derrell Umaña PA-C's findings and plans as documented above. Laboratory Results Last 24 Hours Test 03/31/17 16:15 04/01/17 06:09 Bedside Glucose 106 mg/dl White Blood Count 5.67 K/uL Red Blood Count 4.43 M/uL Hemoglobin 11.8 g/dL Hematocrit 37.7 % Mean Corpuscular Volume 85.1 fL Mean Corpuscular Hemoglobin 26.6 pg Mean Corpuscular Hemoglobin Concent 31.3 g/dl Platelet Count 175 K/uL Mean Platelet Volume 8.5 fL Neutrophils (%) (Auto) 57.2 % Lymphocytes (%) (Auto) 27.5 % Monocytes (%) (Auto) 10.9 % Eosinophils (%) (Auto) 3.7 % Basophils (%) (Auto) 0.5 % Neutrophils # (Auto) 3.24 K/uL Lymphocytes # (Auto) 1.56 K/uL Monocytes # (Auto) 0.62 K/uL Eosinophils # (Auto) 0.21 K/uL Basophils # (Auto) 0.03 K/uL RDW Standard Deviation 47.4 fL RDW Coefficient of Variation 15.3 % Immature Granulocyte % (Auto) 0.2 % Immature Granulocyte # (Auto) 0.01 K/uL Prothrombin Time 13.9 SECONDS Prothromb Time International Ratio 1.3 Activated Partial Thromboplast Time 57.6 SECONDS Partial Thromboplastin Ratio 2.2 Sodium Level 140 mmol/L Potassium Level 3.9 mmol/L Chloride Level 101 mmol/L Carbon Dioxide Level 34 mmol/L Anion Gap 5.0 mmol/L Blood Urea Nitrogen 9 mg/dl Creatinine 0.99 mg/dl Est Creatinine Clear Calc Drug Dose 132.4 ml/min Estimated GFR () 97.6 Estimated GFR (Non- 84.2 BUN/Creatinine Ratio 9.4 Random Glucose 93 mg/dl Calcium Level 8.8 mg/dl Total Bilirubin 0.5 mg/dl Aspartate Amino Transf (AST/SGOT) 31 U/L Alanine Aminotransferase (ALT/SGPT) 28 U/L Alkaline Phosphatase 113 U/L Total Protein 6.3 gm/dl Albumin 3.1 gm/dl Globulin 3.2 gm/dl Albumin/Globulin Ratio 1.0
--- NOTE | 2017-04-01 13:20 | Progress Note ---
Medicine Progress Note Date & Time of Visit: Apr 01, 2017 at 13:20. (Silvia Paz, P.A.-C.) Subjective Patient seen and examined. Resting comfortably in bed. Was relatively asymptomatic overnight except for feeling palpitations around 6am. Review of telemetry monitoring shows A Fib with a HR between 50s-150s. HR in 80s during my examination. Patient denies any lightheadedness, headache, CP, SOB, worsening LE swelling. (Silvia Paz, P.A.-C.) Objective Last 8 Hrs Date Time Temp Pulse Resp B/P (MAP) Pulse Ox O2 Delivery O2 Flow Rate FiO2 04/01/17 12:00 98 Room Air 04/01/17 11:51 36.8 66 18 102/67 (79) 95 04/01/17 11:21 81 108/73 (85) 04/01/17 08:00 98 Room Air 04/01/17 07:38 36.7 91 18 124/74 (91) 98 Room Air Physical Exam: General appearance: awake and alert, obese, no deformities Eyes: Sclera: white, conjuntiva: pink. Eyelids without erythema or lesions. PERRL. Pupils and irises round and symmetric. ENT: External ears without lesions, masses or tenderness. Nose with pink mucosa , no discharge. Oropharynx mucosa intact. No lesions, masses. Poor dentition. Neck: Supple, without lesions or masses. Trachea midline. Thyroid is non- enlarged, non-tender. Respiratory: Normal respiratory effort. No intercostal retractions or use of accessory muscles. Chest is non-tender. Decreased breath sounds. No wheezing, rales, rhonci. Cardiovascular: PMI palpable, non-displaced. S1 S2 normal, no murmurs, gallops, rubs. Trace edema in extremities. GI: No masses or abnormal pulsations visualized. Bowel sounds normal. Abdomen soft, non-tender. No hepatomegaly or splenomegaly. MSK: No clubbing, cyanosis of digits. Normal capillary refill. Bilateral UE and LE without asymmetry, defects or tenderness. No muscle atrophy or abnormal movements. Skin: No rashes, lesions, ulcers. Palpation is normal, no induration or sub- cutaneous nodules. Neuro: CN II-XII intact. No motor or sensory deficits. Psych: Normal judgement, insight. Alert and oriented to person, place, time. Normal mood and affect. Laboratory Results: Last 24 Hours Test 03/31/17 16:15 04/01/17 06:09 Bedside Glucose 106 mg/dl White Blood Count 5.67 K/uL Red Blood Count 4.43 M/uL Hemoglobin 11.8 g/dL Hematocrit 37.7 % Mean Corpuscular Volume 85.1 fL Mean Corpuscular Hemoglobin 26.6 pg Mean Corpuscular Hemoglobin Concent 31.3 g/dl Platelet Count 175 K/uL Mean Platelet Volume 8.5 fL Neutrophils (%) (Auto) 57.2 % Lymphocytes (%) (Auto) 27.5 % Monocytes (%) (Auto) 10.9 % Eosinophils (%) (Auto) 3.7 % Basophils (%) (Auto) 0.5 % Neutrophils # (Auto) 3.24 K/uL Lymphocytes # (Auto) 1.56 K/uL Monocytes # (Auto) 0.62 K/uL Eosinophils # (Auto) 0.21 K/uL Basophils # (Auto) 0.03 K/uL RDW Standard Deviation 47.4 fL RDW Coefficient of Variation 15.3 % Immature Granulocyte % (Auto) 0.2 % Immature Granulocyte # (Auto) 0.01 K/uL Prothrombin Time 13.9 SECONDS Prothromb Time International Ratio 1.3 Activated Partial Thromboplast Time 57.6 SECONDS Partial Thromboplastin Ratio 2.2 Sodium Level 140 mmol/L Potassium Level 3.9 mmol/L Chloride Level 101 mmol/L Carbon Dioxide Level 34 mmol/L Anion Gap 5.0 mmol/L Blood Urea Nitrogen 9 mg/dl Creatinine 0.99 mg/dl Est Creatinine Clear Calc Drug Dose 132.4 ml/min Estimated GFR () 97.6 Estimated GFR (Non- 84.2 BUN/Creatinine Ratio 9.4 Random Glucose 93 mg/dl Calcium Level 8.8 mg/dl Total Bilirubin 0.5 mg/dl Aspartate Amino Transf (AST/SGOT) 31 U/L Alanine Aminotransferase (ALT/SGPT) 28 U/L Alkaline Phosphatase 113 U/L Total Protein 6.3 gm/dl Albumin 3.1 gm/dl Globulin 3.2 gm/dl Albumin/Globulin Ratio 1.0 (Silvia Paz, P.A.-C.) Assessment & Plan This is a 57yo M with a PMH of paroxysmal A Fib, non-obstructive CAD, DM II, HTN and obesity who presents with SOB, orthopnea and A Fib in RVR. Atrial Fibrillation: -Recurrent atrial fibrillation with rapid ventricular response -Dilated left and right atrium. -Per cardio recommendations, -Changed Lopressor to Toprol XL -Continue oral amiodarone loading -Continue oral Lasix -Telemetry monitoring -Continue heparin until INR therapeutic on coumadin -Plan for out-patient DCC after loading amiodarone and at least 3 wks of proper anticoagulation on coumadin Subtherapeutic INR: -INR increased from 1.1 to 1.3 -Continue 10mg dose tonight -Recheck INR in AM -Continue heparin bridge until INR therapeutic Possible Sleep apnea: -Obesity, possible contribution to atrial fibrillation -Nocturnal pulse ox study was okay and there was no continuous desaturation of less than 88% for equal or greater than 4 minutes -May benefit from official sleep study as outpatient CAD: -Cardiac cath 2013 showed moderate disease (50% LAD, 40% RCA) -Started on ASA. -Toprol XL Dyspnea: -Possibly due to rapid AF -No overt pulmonary edema on chest films Lower extremity edema: -Likely from venous insufficiency -Continue PO Lasix HTN: -Switch to Toprol XL, per cardio DM II: -Diet-controlled since gastric bypass -Random glucose in ED 97 -Hba1c 5.2 Hypothyroidism: -TSH high, Continue levothyroxine, repeat labs in 4-6 weeks Depression, insomnia: -Cont. escitalopram, trazodone. DVT Ppx: IV heparin with bridge to warfarin Code status: FULL PCP: Abel Dispo: Plan to return home once medically stable. Will need Internal Medicine follow-up with Dr. Roman, anticoagulation clinic, cardiology follow up as outpatient, and sleep study when discharged Current Inpatient Medications: Current Inpatient Medications Medications (Trade) Dose Ordered Sig/Efrain Route Start Time Stop Time Status Last Admin Dose Admin Heparin Sodium/ Dextrose 500 ml @ 36 mls/hr [id number] PRN IV 03/27/17 14:15 04/26/17 14:14 04/01/17 05:32 36 MLS/HR Metoprolol Tartrate (Lopressor Iv) 5 mg Q4 PRN IV 03/27/17 15:00 04/26/17 14:59 03/28/17 12:59 5 MG Escitalopram Oxalate (Lexapro Tab) 10 mg QAM PO 03/28/17 09:00 04/27/17 08:59 04/01/17 07:33 10 MG Levothyroxine Sodium (Synthroid Tab) 50 mcg DAILYBB PO 03/28/17 06:00 04/27/17 05:59 04/01/17 05:28 50 MCG Pantoprazole Sodium (Protonix Tab) 40 mg DAILY PO 03/28/17 09:00 04/27/17 08:59 04/01/17 07:33 40 MG Tramadol HCl (Ultram Tab) 100 mg QAM PO 03/28/17 09:00 04/27/17 08:59 04/01/17 07:36 100 MG Trazodone HCl (Desyrel Tab) 50 mg HS PO 03/27/17 21:00 04/26/17 20:59 03/31/17 20:27 50 MG Magnesium Oxide (Mag-Ox Tab) 400 mg BID PO 03/27/17 21:00 04/26/17 20:59 04/01/17 07:33 400 MG Aspirin (Ecotrin Tab) 81 mg QAM PO 03/28/17 09:00 04/27/17 08:59 04/01/17 07:32 81 MG Amiodarone HCl (Cordarone Tab) 200 mg TIDM PO 03/28/17 16:45 04/27/17 16:44 04/01/17 11:21 200 MG Warfarin Sodium (Coumadin Tab) 10 mg DAILY@16 PO 03/31/17 16:00 04/30/17 15:59 03/31/17 16:40 10 MG Metoprolol Succinate (Toprol Xl Tab) 100 mg BID PO 03/31/17 21:00 04/30/17 20:59 04/01/17 07:33 100 MG Furosemide (Lasix Tab) 40 mg QAM PO 04/01/17 09:00 05/01/17 08:59 04/01/17 08:22 40 MG Potassium Chloride (Klor-Con Tab) 20 meq QAM PO 04/01/17 09:00 05/01/17 08:59 04/01/17 08:22 20 MEQ (Silvia Paz ., P.A.-C.) Attending Physician Addendum: Dr. De La Vega; I have seen and examined the patient in conjunction with NOAH Paz. I agree with the above assessment and plan (Taco De La Vega M.D.)
[2017-04-01] MEDS: WARFARIN SOD 10 MG TAB PO SCH (16:04)
[2017-04-01] MEDS: TRAZODONE HCL 50 MG TAB PO SCH (20:14)
[2017-04-02] VITALS: O2SAT 96
[2017-04-02 03:53] VITALS: BP 111/75; PULSE 79; TEMP 36.7; O2SAT 98
[2017-04-02 04:00] VITALS: O2SAT 98
[2017-04-02 06:17] LABS: INR 1.6 (0.9-1.1); PARTIAL THROMBOPLASTIN RATIO 2.9; PROTHROMBIN TIME (PATIENT) 17.7 SECONDS (9.0-12.0)
[2017-04-02 06:28] LABS: BUN/CREATININE RATIO 9.7 (10-20); CALCIUM 8.7 mg/dl (8.5-10.1); CREATININE 1.15 mg/dl (0.60-1.40); POTASSIUM 3.9 mmol/L (3.5-5.1)
[2017-04-02] MEDS: LEVOTHYROXINE 50 MCG TAB PO SCH (06:32)
[2017-04-02] MEDS: HEPARIN 25,000 UNIT/500ML D5W 500 ML IV PRN ×2 (06:44→11:51)
[2017-04-02] MEDS: MAGNESIUM OXIDE 400 MG TAB PO SCH (07:57)
[2017-04-02] MEDS: METOPROLOL SUCC 50MG EXT REL TAB PO SCH (07:58)
[2017-04-02] MEDS: ASPIRIN 81 MG ECTAB PO SCH (07:58)
[2017-04-02] MEDS: POTASSIUM CHLORIDE 20 MEQ TABCR PO SCH (07:58)
[2017-04-02] MEDS: ESCITALOPRAM OXALATE 10 MG TAB PO SCH (07:58)
[2017-04-02] MEDS: AMIODARONE 200 MG TAB PO SCH ×2 (07:58→11:52)
[2017-04-02] MEDS: PANTOprazole SOD 40 MG TAB PO SCH (07:59)
[2017-04-02] MEDS: FUROSEMIDE 40 MG TAB PO SCH (07:59)
[2017-04-02] MEDS: TRAMADOL HCL 50 MG TAB PO SCH (08:07)
[2017-04-02 08:08] VITALS: BP 111/71; PULSE 81; TEMP 36.7; O2SAT 96
--- NOTE | 2017-04-02 09:22 | Progress Note ---
Medicine Progress Note Date & Time of Visit: Apr 02, 2017 at 09:18. (Silvia Paz, P.A.-C.) Subjective Patient seen and examined. Resting comfortably in bed. Denies any lightheadedness, palpitation, CP, SOB, worsening LE swelling. Review of telemetry monitoring shows A Fib overnight with a HR between 70s- 120s. HR of 115 when I initially saw patient (after ambulation). Once resting, HR decreased to 80s. (Silvia Paz, P.A.-C.) Objective Last 8 Hrs Date Time Temp Pulse Resp B/P (MAP) Pulse Ox O2 Delivery O2 Flow Rate FiO2 04/02/17 08:08 36.7 81 19 111/71 (84) 96 Room Air 04/02/17 04:00 98 Room Air 04/02/17 03:53 36.7 79 19 111/75 (87) 98 Room Air Physical Exam: General appearance: awake and alert, obese, no deformities Eyes: Sclera: white, conjuntiva: pink. Eyelids without erythema or lesions. PERRL. Pupils and irises round and symmetric. ENT: External ears without lesions, masses or tenderness. Nose with pink mucosa , no discharge. Oropharynx mucosa intact. No lesions, masses. Poor dentition. Neck: Supple, without lesions or masses. Trachea midline. Thyroid is non- enlarged, non-tender. Respiratory: Normal respiratory effort. No intercostal retractions or use of accessory muscles. Chest is non-tender. Decreased breath sounds. No wheezing, rales, rhonci. Cardiovascular: PMI palpable, non-displaced. Normal rate, irregular rhythm. No murmurs, gallops, rubs. Trace edema in extremities. GI: No masses or abnormal pulsations visualized. Bowel sounds normal. Abdomen soft, non-tender. No hepatomegaly or splenomegaly. MSK: No clubbing, cyanosis of digits. Normal capillary refill. Bilateral UE and LE without asymmetry, defects or tenderness. No muscle atrophy or abnormal movements. Skin: No rashes, lesions, ulcers. Palpation is normal, no induration or sub- cutaneous nodules. Neuro: CN II-XII intact. No motor or sensory deficits. Psych: Normal judgement, insight. Alert and oriented to person, place, time. Normal mood and affect. Laboratory Results: Last 24 Hours Test 04/02/17 05:34 Prothrombin Time 17.7 SECONDS Prothromb Time International Ratio 1.6 Activated Partial Thromboplast Time 75.8 SECONDS Partial Thromboplastin Ratio 2.9 Sodium Level 138 mmol/L Potassium Level 3.9 mmol/L Chloride Level 101 mmol/L Carbon Dioxide Level 34 mmol/L Anion Gap 4.0 mmol/L Blood Urea Nitrogen 11 mg/dl Creatinine 1.15 mg/dl Est Creatinine Clear Calc Drug Dose 112.1 ml/min Estimated GFR () 81.4 Estimated GFR (Non- 70.3 BUN/Creatinine Ratio 9.7 Random Glucose 98 mg/dl Calcium Level 8.7 mg/dl Total Bilirubin 0.5 mg/dl Aspartate Amino Transf (AST/SGOT) 32 U/L Alanine Aminotransferase (ALT/SGPT) 35 U/L Alkaline Phosphatase 109 U/L Total Protein 6.3 gm/dl Albumin 3.1 gm/dl Globulin 3.2 gm/dl Albumin/Globulin Ratio 1.0 (Silvia Paz, P.A.-C.) Assessment & Plan This is a 57yo M with a PMH of paroxysmal A Fib, non-obstructive CAD, DM II, HTN and obesity who presents with SOB, orthopnea and A Fib in RVR. Atrial Fibrillation: -Recurrent atrial fibrillation with rapid ventricular response -Dilated left and right atrium. -Per cardio recommendations, -Changed Lopressor to Toprol XL -Continue oral amiodarone loading -Continue oral Lasix -Telemetry monitoring -Continue heparin until INR therapeutic on coumadin -Plan for out-patient DCC after loading amiodarone and at least 3 wks of proper anticoagulation on coumadin Subtherapeutic INR: -INR increased from 1.1-->1.3-->1.6 this AM -Continue 10mg dose tonight -Recheck INR in AM -Continue heparin bridge until INR therapeutic Possible Sleep apnea: -Obesity, possible contribution to atrial fibrillation -Nocturnal pulse ox study was okay and there was no continuous desaturation of less than 88% for equal or greater than 4 minutes -May benefit from official sleep study as outpatient CAD: -Cardiac cath 2013 showed moderate disease (50% LAD, 40% RCA) -Started on ASA. -Toprol XL Dyspnea: -Possibly due to rapid AF -No overt pulmonary edema on chest films Lower extremity edema: -Likely from venous insufficiency -Continue PO Lasix HTN: -Switch to Toprol XL, per cardio DM II: -Diet-controlled since gastric bypass -Random glucose in ED 97 -Hba1c 5.2 Hypothyroidism: -TSH high, Continue levothyroxine, repeat labs in 4-6 weeks Depression, insomnia: -Cont. escitalopram, trazodone. DVT Ppx: IV heparin with bridge to warfarin Code status: FULL PCP: Abel Dispo: Plan to return home once medically stable. Will need Internal Medicine follow-up with Dr. Roman, anticoagulation clinic, cardiology follow up as outpatient, and sleep study when discharged Current Inpatient Medications: Current Inpatient Medications Medications (Trade) Dose Ordered Sig/Efrain Route Start Time Stop Time Status Last Admin Dose Admin Heparin Sodium/ Dextrose 500 ml @ 34 mls/hr [id number] PRN IV 03/27/17 14:15 04/26/17 14:14 04/02/17 06:44 34 MLS/HR Metoprolol Tartrate (Lopressor Iv) 5 mg Q4 PRN IV 03/27/17 15:00 04/26/17 14:59 03/28/17 12:59 5 MG Escitalopram Oxalate (Lexapro Tab) 10 mg QAM PO 03/28/17 09:00 04/27/17 08:59 04/02/17 07:58 10 MG Levothyroxine Sodium (Synthroid Tab) 50 mcg DAILYBB PO 03/28/17 06:00 04/27/17 05:59 04/02/17 06:32 50 MCG Pantoprazole Sodium (Protonix Tab) 40 mg DAILY PO 03/28/17 09:00 04/27/17 08:59 04/02/17 07:59 40 MG Tramadol HCl (Ultram Tab) 100 mg QAM PO 03/28/17 09:00 04/27/17 08:59 04/02/17 08:07 100 MG Trazodone HCl (Desyrel Tab) 50 mg HS PO 03/27/17 21:00 04/26/17 20:59 04/01/17 20:14 50 MG Magnesium Oxide (Mag-Ox Tab) 400 mg BID PO 03/27/17 21:00 04/26/17 20:59 04/02/17 07:57 400 MG Aspirin (Ecotrin Tab) 81 mg QAM PO 03/28/17 09:00 04/27/17 08:59 10/20/17 07:58 81 MG Amiodarone HCl (Cordarone Tab) 200 mg TIDM PO 03/28/17 16:45 04/27/17 16:44 04/02/17 07:58 200 MG Warfarin Sodium (Coumadin Tab) 10 mg DAILY@16 PO 03/31/17 16:00 04/30/17 15:59 04/01/17 16:04 10 MG Metoprolol Succinate (Toprol Xl Tab) 100 mg BID PO 03/31/17 21:00 04/30/17 20:59 04/02/17 07:58 100 MG Furosemide (Lasix Tab) 40 mg QAM PO 04/01/17 09:00 05/01/17 08:59 04/02/17 07:59 40 MG Potassium Chloride (Klor-Con Tab) 20 meq QAM PO 04/01/17 09:00 05/01/17 08:59 04/02/17 07:58 20 MEQ (Silvia Paz, P.A.-C.) Addendum, Attending Physician Dr. De La Vega. I have seen and examined the patient with NOAH Paz and agree with the assessment and plan with following comments: Patient's currently being managed for atrial fibrillation with heparin drip and subtherapeutic INR while on coumadin. Will continue heparin drip and current coumadin dose which appears to be working to raise the patient's INR. Patient on oral amiodarone but still in atrial fibrillation. Heart rate has been better controlled while on current dose of beta blockers. Still seen on telemetry to have heart rate above 100 beats per minute periodically. Will ask cardiology service if current beta blockers sufficient. Lower extremity edema has improved significantly. Continue oral Lasix. (Taco De La Vega M.D.)
[2017-04-02 12:25] VITALS: BP 112/73; PULSE 77; TEMP 36.9; O2SAT 95
[2017-04-02 12:59] LABS: PARTIAL THROMBOPLASTIN RATIO 2.1
--- NOTE | 2017-04-02 13:29 | PROGRESS NOTE ---
DATE: 04/02/2017 FOLLOWUP VISIT SUBJECTIVE: The patient is a 57-year-old who presented with atrial fibrillation. We have been waiting for his INR to become therapeutic. He was also started on amiodarone with the anticipation of cardioversion in several weeks as an outpatient. His INR is 1.6 today. He has no complaints. OBJECTIVE: VITAL SIGNS: Blood pressure is 112/70. Pulse is regular at 77. He is afebrile. HEENT: He is normocephalic. Pupils are equal and reactive to light. Extraocular muscles are intact bilaterally. NECK: The neck veins are flat. Carotids have good upstrokes bilaterally without bruits. Thyroid is nonpalpable. RESPIRATORY: Breath sounds equal bilaterally and clear to auscultation. CARDIOVASCULAR: Heart has a regular rhythm. Normal S1, S2. No S3, S4. No cardiac rubs or murmurs. GASTROINTESTINAL: Abdomen is soft, nontender without organomegaly. EXTREMITIES: Free of edema, digit clubbing or cyanosis. NEUROLOGIC: Grossly intact. SKIN: Warm to touch. LYMPH NODES: Negative to palpation. IMPRESSION: 1. Persistent atrial fibrillation. 2. Morbid obesity. 3. Suspected sleep apnea. RECOMMENDATIONS: The patient will be continued on his current medications. However, I have decreased his Amiodarone to 200 mg twice daily which he will stay on until he follows up with us in the office. I will stop his heparin and I believe at this point he can be discharged home with management of his Coumadin by the outpatient Coumadin clinic.
[2017-04-02] MEDS ORDERED: CMD10 PO (14:48)
[2017-04-02] MEDS ORDERED: MGNO400 PO (14:48)
[2017-04-02] MEDS ORDERED: METO1TAB68 PO (14:48)
[2017-04-02] MEDS ORDERED: CRD200 PO (14:52)
--- NOTE | 2017-04-02 15:20 | Discharge Instructions ---
Discharge Instructions Date of Service Apr 02, 2017. Admission Reason for Admission: Atrial Fibrillation W/Rapid Ventricular Response Discharge Discharge Diagnosis / Problem: atrial fibrillation with rapid ventricular response, on anticoagulation Discharge Goals Goal(s): Improve function, Improve disease control Activity Recommendations Activity Limitations: per Instructions/Follow-up section Exercise/Sports Limitations: until after follow-up appointment May Resume Sexual Activity: after follow-up appointment . Instructions / Follow-Up Instructions / Follow-Up You will be starting new medications at home including warfarin 10 mg daily, Amiodarone 200 mg BID Follow up appointments 04/09/2017 3:40 PM Kadeem Frey, DO Cardiology, [facility] Follow up with primary care doctor Dr. Roman, patient to call Dr. Roman 04/05/17 9:45 AM Anticoagulation clinic associated with [employer] on [address] [place], [place] for INR check (patient can call [phone] for re-scheduling if needed) Current Hospital Diet Patient's current hospital diet: AHA Diet (Heart Healthy) Discharge Diet Recommended Diet: AHA Diet (Heart Healthy) Pending Studies Studies pending at discharge: no Laboratory Results 04/01/17 06:09 Red Blood Count 4.43, Mean Corpuscular Volume 85.1, Mean Corpuscular Hemoglobin 26.6, Mean Corpuscular Hemoglobin Concent 31.3, Mean Platelet Volume 8.5, Neutrophils (%) (Auto) 57.2, Lymphocytes (%) (Auto) 27.5, Monocytes (%) (Auto) 10.9, Eosinophils (%) (Auto) 3.7, Basophils (%) (Auto) 0.5, Neutrophils # (Auto ) 3.24, Lymphocytes # (Auto) 1.56, Monocytes # (Auto) 0.62, Eosinophils # (Auto ) 0.21, Basophils # (Auto) 0.03 04/02/17 05:34 Test 03/27/17 11:59 03/27/17 18:05 03/28/17 00:00 03/28/17 05:09 Total Creatine Kinase 95 U/L (39-308) Creatine Kinase MB 2.0 ng/ml (0.5-3.6) Creatine Kinase MB Ratio 2.1 (0-3.0) D-Dimer 800 ug/L FEU (0-500) Troponin I < 0.015 ng/ml (0-0.045) Stool Occult Blood NEGATIVE (NEGATIVE) Estimated Average Glucose 103 mg/dl Hemoglobin A1c 5.2 % (4.5-5.6) Test 03/29/17 06:03 03/29/17 09:39 03/31/17 04:13 03/31/17 16:15 Triglycerides Level 90 mg/dl (0-150) Cholesterol Level 98 mg/dl (0-200) HDL Cholesterol 49 mg/dl LDL Cholesterol, Calculated 31 mg/dl VLDL Cholesterol, Calculated 18 mg/dl Cholesterol/HDL Ratio 2.0 Thyroid Stimulating Hormone (TSH) 4.940 uIu/ml (0.300-4.500) Thyroxine (T4) 6.4 mcg/dl (4.5-10.9) Magnesium Level 2.0 mg/dl (1.8-2.4) Pro-B-Type Natriuretic Peptide 774 pg/ml (0-900) Bedside Glucose 106 mg/dl (70-99) Test 04/01/17 06:09 04/02/17 05:34 04/02/17 12:32 White Blood Count 5.67 K/uL (4.8-10.8) Red Blood Count 4.43 M/uL (4.7-6.1) Hemoglobin 11.8 g/dL (14.0-18.0) Hematocrit 37.7 % (42-52) Mean Corpuscular Volume 85.1 fL (80-100) Mean Corpuscular Hemoglobin 26.6 pg (25-34) Mean Corpuscular Hemoglobin Concent 31.3 g/dl (32-36) Platelet Count 175 K/uL (130-400) Mean Platelet Volume 8.5 fL (7.4-10.4) Neutrophils (%) (Auto) 57.2 % Lymphocytes (%) (Auto) 27.5 % Monocytes (%) (Auto) 10.9 % Eosinophils (%) (Auto) 3.7 % Basophils (%) (Auto) 0.5 % Neutrophils # (Auto) 3.24 K/uL (1.4-6.5) Lymphocytes # (Auto) 1.56 K/uL (1.2-3.4) Monocytes # (Auto) 0.62 K/uL (0.11-0.59) Eosinophils # (Auto) 0.21 K/uL (0-0.5) Basophils # (Auto) 0.03 K/uL (0-0.2) RDW Standard Deviation 47.4 fL (36.4-46.3) RDW Coefficient of Variation 15.3 % (11.5-14.5) Immature Granulocyte % (Auto) 0.2 % Immature Granulocyte # (Auto) 0.01 K/uL (0.00-0.02) Prothrombin Time 17.7 SECONDS (9.0-12.0) Prothromb Time International Ratio 1.6 (0.9-1.1) Anion Gap 4.0 mmol/L (3-11) Est Creatinine Clear Calc Drug Dose 112.1 ml/min Estimated GFR () 81.4 Estimated GFR (Non- 70.3 BUN/Creatinine Ratio 9.7 (10-20) Calcium Level 8.7 mg/dl (8.5-10.1) Total Bilirubin 0.5 mg/dl (0.2-1) Aspartate Amino Transf (AST/SGOT) 32 U/L (15-37) Alanine Aminotransferase (ALT/SGPT) 35 U/L (12-78) Alkaline Phosphatase 109 U/L (45-117) Total Protein 6.3 gm/dl (6.4-8.2) Albumin 3.1 gm/dl (3.4-5.0) Globulin 3.2 gm/dl (2.5-4.0) Albumin/Globulin Ratio 1.0 (0.9-2) Activated Partial Thromboplast Time 55.5 SECONDS (21.0-31.0) Partial Thromboplastin Ratio 2.1 Hemoglobin A1c Test 03/28/17 05:09 Range/Units Estimated Average Glucose 103 mg/dl Hemoglobin A1c 5.2 4.5-5.6 % Lipid Panel Test 03/29/17 06:03 Range/Units Triglycerides Level 90 0-150 mg/dl Cholesterol Level 98 0-200 mg/dl HDL Cholesterol 49 mg/dl Cholesterol/HDL Ratio 2.0 LDL Cholesterol, Calculated 31 mg/dl Medical Emergencies . Who to Call and When: Medical Emergencies: If at any time you feel your situation is an emergency, please call 911 immediately. . Non-Emergent Contact Non-Emergency issues call your: Primary Care Provider, [employer] . . "Provider Documentation" section prepared by Taco De La Vega. . VTE Core Measure Inpt VTE Proph given/why not?: Unfractionated heparin SQ, Warfarin (Coumadin)
--- NOTE | 2017-04-02 15:21 | Discharge Summary ---
Discharge Summary Date of Service Apr 02, 2017. Discharge Summary Admission Date: Mar 27, 2017 at 13:16 Principal Diagnosis: atrial fibrillation with rapid ventricular response (new onset), anticoagulation with heparin and Coumadin, diuresis for lower extremity swelling Medication Reconciliation New Medications: Metoprolol Succinate (Toprol Xl) 100 Mg Tab 100 MG PO BID for 30 Days, #60 TAB Amiodarone HCl (Amiodarone HCl) 200 Mg Tab 200 MG PO BIDM for 30 Days, #60 TAB Magnesium Oxide (Magnesium-Oxide) 400 Mg Tab 400 MG PO BID for 30 Days, #60 TAB Warfarin Sod (Coumadin) 10 Mg Tab 10 MG PO DAILY@16 for 30 Days, #30 TAB Continued Medications: Escitalopram (Lexapro) 10 Mg Tab 10 MG PO QAM, TAB Furosemide (Lasix) 40 Mg Tab 40 MG PO QAM, TAB Levothyroxine Sodium (Levothyroxine Sodium) 50 Mcg Tab 50 MCG PO DAILY, TAB 3 Refills Pantoprazole (Protonix) 40 Mg Tab 40 MG PO DAILY, TAB Potassium Ext Rel (Klor-Con) 20 Meq Tabcr 20 MEQ PO QPM, TAB AFTER SUPPER Tramadol (Ultram) 50 Mg Tab 100 MG PO QAM, TAB Trazodone Hcl (Trazodone) 50 Mg Tab 50 MG PO HS, TAB Discontinued Medications: Metoprolol Succ (Toprol Xl) (Toprol-Xl) 50 Mg Tabcr 50 MG PO QAM, TAB Metoprolol Succ (Toprol Xl) (Toprol-Xl) 50 Mg Tabcr 100 MG PO HS, TAB Admission Information HPI (per Admitting provider): 57 YO male followed by Dr. Roman for Internal Medicine. History of moderate coronary artery disease (50% LAD, 40% RCA stenoses) per cardiac cath 2013, paroxysmal atrial fibrillation, small VSD, hypertension, diet -controlled DM, and other problems noted below. Admitted to [facility] October 2015 with initial episode of atrial fibrillation. Converted to NSR. Not anticoagulated due to heme + stools. Subsequently underwent outpatient EGD and colonoscopy- only finding per pt's understanding was colonic polyps. 2 nights prior to admission developed dyspnea while sleeping in bed around 01: 00. Sudden onset of symptoms. No palpitations, but his radial pulse seemed to be irregular when he checked it manually. Chest felt tight with deep inspiration. No fever. Mild nonproductive cough. Weight up a few pounds. Instructed to increase his furosemide dose from 40 mg daily to 80 mg daily. Progressive orthopnea and dyspnea on exertion despite increased dose of furosemide. Came to ED for evaluation. Found to be in atrial fibrillation with rapid ventricular response. Received IV metoprolol without significant slowing of ventricular rate. . Physical Exam (per Admitting): General Appearance: no apparent distress, + obese Head: normocephalic, atraumatic Eyes: normal inspection, PERRL, EOMI, sclerae normal (eyelids and conjunctivae normal) ENT: pharynx normal, + pertinent finding (poor dentition) Neck: supple, no adenopathy, thyroid normal (exam limited due to body habitus), trachea midline Respiratory/Chest: lungs clear, no respiratory distress, no accessory muscle use Cardiovascular: no gallop, no JVD (none appreciated, but exam limited due to body habitus), + systolic murmur (II/ sys murmur at apex), + irregularly irregular, + pertinent finding (1+ pretibial edema) Abdomen/GI: normal bowel sounds, non tender, soft, no organomegaly (exam limited), no pulsatile mass Extremities/Musculoskelatal: no calf tenderness, normal capillary refill Neurologic/Psych: cathode builder II-XII nml as tested (PERRL, EOMI, no facial palsy, no dysarthria), no motor/sensory deficits (motor strength extremities grossly intact), alert, normal mood/affect, oriented x 3 Skin: normal color, warm/dry, no rash Lymphatic: no adenopathy (cervical) Hospital Course Patient was admitted and found to have new onset atrial fibrillation with RVR. During this hospital course patient has been monitored on telemetry with increasing Beat stef doses to control the heart rate and remove fluid from lower extremities with diuretics. Patient also followed by cardiology and on amiodarone PO without returning to sinus rhythm yet. Patient has been anticoagulated with heparin drip and coumadin with subtherapeutic INR. INR today on discharge is 1.6. As per Cardiology patient is stable for discharge and his INR should be therapeutic in the next 2 days. Patient to be discharged to home with cardiology follow up, anticoagulation clinic follow up, primary care doctor. Patient given prescriptions for warfarin and amiodarone and increased Metoprolol dose medications Total time spent on discharge = 60 min This includes examination of the patient, discharge planning, medication reconciliation, and communication with other providers. Discharge Instructions You will be starting new medications at home including warfarin 10 mg daily, Amiodarone 200 mg BID Follow up appointments 04/09/2017 3:40 PM Kadeem Frey, Cardiology, [facility] Follow up with primary care doctor Dr. Roman, patient to call Dr. Roman 04/05/17 9:45 AM Anticoagulation clinic associated with [facility] on [address] [place] [address] for INR check (patient can call for re-scheduling if needed)
[2017-04-02 15:44] VITALS: BP 112/73; PULSE 77; TEMP 36.9; O2SAT 95
[2017-04-02] MEDS: WARFARIN SOD 10 MG TAB PO SCH (16:02)
[2017-04-02] MEDS ORDERED: AMIODARONE 200 MG TAB PO SCH (16:45)
--- NOTE | 2017-04-05 12:42 | EDITING REQUIRED CODING QUERY ---
CODING QUERY To promote full compliance with coding requirements relating to patient care, provider participation is requested in all cases of cafeteria assistant uncertainty. Please assist us with the question(s) below: Coding Question(s): The ER H&P documents possible CHF exacerbation and Progress Note on 03/29/17 documents Lower extremity edema, acute diastolic chf?, Echo unremarkable, most likely from obesity and venous insufficiency. Please clarify below, in your clinical opinion regarding the possible or questionable CHF. ( ) The patient was treated for Acute on Chronic Diastolic CHF ( ) The patient was treated for Acute Diastolic CHG ( ) The patient has Chronic Diastolic CHF ( x) NO CHF Physician's Response(s): review of the echo reports actually patient has good ejection fraction. Cardiology service did not make diagnosis for congestive heart failure whether systolic or diastolic. Subsequent progress notes referred to lower extremity edema as a fluid overload for which Lasix has been used. The term "Venous stasis" was used as a possible differential Thank you Bernie Crockett Principal Diagnosis: "_that condition established after study, to be chiefly responsible for occasioning the admission of the patient to the hospital for care." Co-Existing Principal Diagnosis: "_when two or more diagnoses equally meet the criteria for principal diagnosis as determined by the circumstances of admission, diagnostic work up, and/or therapy provided, and the Alphabetic Index, Tabular List, or another coding guideline does not provide sequencing direction, any one of the diagnoses may be sequenced first." "When the physician has documented what appears to be a current diagnosis in the body of the record, but has not included the diagnosis in the final diagnostic statement, the physician should be asked whether the diagnosis should be added." ([facility] 2 QTR90. p3-4)
--- NOTE | 2017-04-05 12:50 | EDITING REQUIRED CODING QUERY ---
CODING QUERY To promote full compliance with coding requirements relating to patient care, provider participation is requested in all cases of medical insurance coder uncertainty. Please assist us with the question(s) below: Coding Question(s): The ER mentions possible Obesity Hypoventilation Syndrome and possible Obstructive Sleep Apnea and there is mention in the record that obesity may contribute to the Atrial Fibrillation. Please clarify below, in your clinical opinion. ( ) Atrial Fibrillation may be due to Obesity Hypoventilation Syndrome ( ) Atrial Fibrillation may be due to Obstructive Sleep Apnea ( ) Atrial Fibrillation is not likely due to Obesity Hypoventilation Syndrome or PHYLLIS ( x) Atrial Fibrillation with unknown etiology ( ) Atrial Fibrillation is likely due to Other: Specify Physician's Response(s): I do not think that I can attribute what patient's atrial fibrillation may be secondary to. I reviewed cardiology consultation records during his admission and not even cardiology service has attributed the atrial fibrillation to 1 particular cause Thank you Bernie Crockett Principal Diagnosis: "_that condition established after study, to be chiefly responsible for occasioning the admission of the patient to the hospital for care." Co-Existing Principal Diagnosis: "_when two or more diagnoses equally meet the criteria for principal diagnosis as determined by the circumstances of admission, diagnostic work up, and/or therapy provided, and the Alphabetic Index, Tabular List, or another coding guideline does not provide sequencing direction, any one of the diagnoses may be sequenced first." "When the physician has documented what appears to be a current diagnosis in the body of the record, but has not included the diagnosis in the final diagnostic statement, the physician should be asked whether the diagnosis should be added." (Source Coding [facility] 2 QTR90. p3-4)
[2017-04-08] MEDS ORDERED: METO1TAB69 PO (09:37)
== END 2017-04-02 16:10 | disposition home or self-care (01) | DRG 309 ==
LOC: C.EDB 11:26 → C.2T 13:16 → ENRESERV 13:41
PROVIDERS: ADMIT Hospitalist; ATTEND Hospitalist
DX: I48.0 Paroxysmal atrial fibrillation (principal); Z68.43 Body mass index [BMI] 50.0-59.9, adult; Q21.0 Ventricular septal defect; G47.33 Obstructive sleep apnea (adult) (pediatric); R79.1 Abnormal coagulation profile; I11.9 Hypertensive heart disease without heart failure; I87.2 Venous insufficiency (chronic) (peripheral); E11.9 Type 2 diabetes mellitus without complications; I25.10 Atherosclerotic heart disease of native coronary artery without angina pectoris; E03.9 Hypothyroidism, unspecified; F32.9 Major depressive disorder, single episode, unspecified; G47.00 Insomnia, unspecified; E66.01 Morbid (severe) obesity due to excess calories; Z79.899 Other long term (current) drug therapy; Z98.84 Bariatric surgery status; Z86.010 Personal history of colon polyps; Z82.49 Family history of ischemic heart disease and other diseases of the circulatory system; Z83.3 Family history of diabetes mellitus

== ENCOUNTER 2017-04-08 09:10 | Emergency (ER) | payer BC ==
[~2017-04-08] VITALS: Ht 175.3 cm; Wt 167.5 kg
[~2017-04-08 09:10] MED LIST changes: +CMD10 PO; +CRD200 PO; -ERGO1CAP35 PO; -FLM4 PO; -FLUO10CA48 PO; -METF500T5 PO; +METO-479 PO; -METO1TAB69 PO; -METO50TA7 PO; +MGNO400 PO; -ONDA4TAB10 SL; -POTA20TA11 PO; -PRT/40 PO; -SYN50 PO; -TRAM-10 PO; -TRAZ50TA35 PO; -ZOLP1TAB PO
[2017-04-08 09:13] VITALS: TEMP 36.8; Ht 175.3 cm; Wt 167.5 kg
[2017-04-08] MEDS ORDERED: METO100T44 PO (09:37)
[2017-04-08] MEDS ORDERED: MAGN400T6 PO (09:37)
[2017-04-08] MEDS ORDERED: AMIO200T4 PO (09:37)
[2017-04-08] MEDS ORDERED: CMD10 PO (09:37)
[2017-04-08] MEDS ORDERED: DILTIAZEM HCL 5 MG/ML 5 ML VIAL IV STA (09:38)
--- NOTE | 2017-04-08 09:48 | DIAGNOSTIC IMAGING REPORT ---
CHEST ONE VIEW PORTABLE CLINICAL HISTORY: CHEST PAIN dyspnea COMPARISON STUDY: 03/27/2017 FINDINGS: Moderate stable cardiomegaly. Lungs are clear. Diaphragms smooth. IMPRESSION: Moderate stable cardiomegaly. No acute process. The above report was generated using voice recognition software. It may contain grammatical, syntax or spelling errors. Electronically signed by: Derrell Dubose M.D. 04/08/2017 9:47 AM Dictated Date/Time: 04/08/2017 9:47 AM
--- NOTE | 2017-04-08 09:54 | EMERGENCY ROOM VISIT NOTE ---
History Report prepared by Jeffrey: Ayah Hairston Under the Supervision of: Dr. Jose Eldridge M.D. First contact with patient: 09:25 Chief Complaint: CHEST PAIN Stated Complaint: CHEST PAINS Nursing Triage Summary: Chest tightness substernal with fluttering feeling starting 1.5 hours ago. Last week here with Atrial fibrillation which he has a hx of. History of Present Illness The patient is a 57 year old male who presents to the Emergency Room with complaints of persistent chest pain that he describes as a tightness that began 1.5 hours ago. He currently rates his discomfort as a 5/10 in severity. The patient reports a history of atrial fibrillation. He states that he was diagnosed one year ago, but states that he was treated with medication and it resolved. The patient states that one week ago he went into atrial fibrillation again, noting that he was evaluated in the hospital for his symptoms. He reports that he is on Coumadin and Metoprolol for his symptoms. The patient states that today he has noticed fluttering in his chest, chest pain , and dizziness. He denies any history of diabetes, hypertension, PEs or DVTs. The patient denies any fever, chills, cough, congestion, shortness of breath, nausea, or vomiting. He states that he felt fine all day yesterday. Source of History: patient Onset: 1.5 hours ago Position: chest Quality: other (tightness) Timing: other (persistent) Associated Symptoms: No fevers, No chills, No cough, No SOB, No nausea, No vomiting Note: Associated Symptoms: dizzy, fluttering in chest Review of Systems See HPI for pertinent positives and negatives. A total of ten systems were reviewed and were otherwise negative. Past Medical & Surgical Medical Problems: (1) Coronary artery disease (2) Depression (3) Diabetes mellitus type 2, controlled (4) History of colonic polyps (5) History of urinary calculi (6) Hypertension (7) Hypothyroidism (8) Insomnia (9) Iron deficiency anemia (10) Paroxysmal atrial fibrillation (11) Ventricular septal defect (12) Vitamin B12 deficiency Surgical Problems: (1) Status post cardiac catheterization (2) Status post cystoscopy (3) Status post gastric bypass for obesity Family History Heart disease GRANDFATHER GRANDMOTHER Hypertension GRANDFATHER GRANDFATHER GRANDMOTHER GRANDMOTHER Social History Smoking Status: Never Smoker Alcohol Use: none Drug Use: none Marital Status: single Occupation Status: retired Current/Historical Medications Scheduled Amiodarone Hcl (Cordarone), 200 MG PO BID Escitalopram (Lexapro), 10 MG PO QAM Furosemide (Lasix), 40 MG PO QAM Levothyroxine Sodium (Levothyroxine Sodium), 50 MCG PO DAILY Magnesium Oxide (Mag-Ox), 400 MG PO BID Metoprolol Succ (Toprol Xl) (Toprol-Xl ), 100 MG PO BID Pantoprazole (Protonix), 40 MG PO DAILY Potassium Ext Rel (Klor-Con), 20 MEQ PO QPM Tramadol (Ultram), 100 MG PO QAM Trazodone Hcl (Trazodone), 50 MG PO HS Warfarin Sod (Coumadin), 10 MG PO PM Allergies Coded Allergies: No Known Allergies (Unverified , `, 04/08/17) Physical Exam Vital Signs Date Time Temp Pulse Resp B/P (MAP) Pulse Ox O2 Delivery O2 Flow Rate FiO2 04/08/17 13:36 128/76 04/08/17 13:19 102 04/08/17 12:37 88 18 130/87 99 Room Air 04/08/17 10:43 84 122/76 04/08/17 09:57 110 115/93 04/08/17 09:45 108 04/08/17 09:13 97 Room Air 04/08/17 09:13 36.8 138 22 141/86 97 Room Air Physical Exam GENERAL: Awake, alert, well-appearing, in no distress HENT: Normocephalic, atraumatic. Mildly dry mucous membranes. EYES: Normal conjunctiva. Sclera non-icteric. NECK: Supple. No nuchal rigidity. FROM. No JVD. RESPIRATORY: Clear to auscultation. CARDIAC: IR IR. Extremities warm and well perfused. Pulses equal. ABDOMEN: Obese abdomen. Soft, non-distended. No tenderness to palpation. No rebound or guarding. No masses. RECTAL: Deferred. MUSCULOSKELETAL: Chest examination reveals no tenderness. The back is symmetrical on inspection without obvious abnormality. There is no CVA tenderness to palpation. No joint edema. LOWER EXTREMITIES: Calves are equal size bilaterally and non-tender. Scant lower extremity edema. No discoloration. NEURO: Normal sensorium. No sensory or motor deficits noted. SKIN: No rash or jaundice noted. Medical Decision & Procedures ER Provider Diagnostic Interpretation: X-ray: Per my interpretation, radiologist review. CHEST ONE VIEW PORTABLE CLINICAL HISTORY: CHEST PAIN dyspnea COMPARISON STUDY: 03/27/2017 FINDINGS: Moderate stable cardiomegaly. Lungs are clear. Diaphragms smooth. IMPRESSION: Moderate stable cardiomegaly. No acute process. The above report was generated using voice recognition software. It may contain grammatical, syntax or spelling errors. Electronically signed by: Derrell Dubose M.D. 04/08/2017 9:47 AM Dictated Date/Time: 04/08/2017 9:47 AM Laboratory Results 04/08/17 09:25 Red Blood Count 4.72, Mean Corpuscular Volume 82.0, Mean Corpuscular Hemoglobin 26.5, Mean Corpuscular Hemoglobin Concent 32.3, Mean Platelet Volume 8.2, Neutrophils (%) (Auto) 62.2, Lymphocytes (%) (Auto) 26.4, Monocytes (%) (Auto) 7.7, Eosinophils (%) (Auto) 2.4, Basophils (%) (Auto) 1.0, Neutrophils # (Auto) 4.44, Lymphocytes # (Auto) 1.88, Monocytes # (Auto) 0.55, Eosinophils # (Auto) 0.17, Basophils # (Auto) 0.07 04/08/17 09:25 Test 04/08/17 09:25 04/08/17 12:11 White Blood Count 7.13 K/uL (4.8-10.8) Red Blood Count 4.72 M/uL (4.7-6.1) Hemoglobin 12.5 g/dL (14.0-18.0) Hematocrit 38.7 % (42-52) Mean Corpuscular Volume 82.0 fL (80-100) Mean Corpuscular Hemoglobin 26.5 pg (25-34) Mean Corpuscular Hemoglobin Concent 32.3 g/dl (32-36) Platelet Count 209 K/uL (130-400) Mean Platelet Volume 8.2 fL (7.4-10.4) Neutrophils (%) (Auto) 62.2 % Lymphocytes (%) (Auto) 26.4 % Monocytes (%) (Auto) 7.7 % Eosinophils (%) (Auto) 2.4 % Basophils (%) (Auto) 1.0 % Neutrophils # (Auto) 4.44 K/uL (1.4-6.5) Lymphocytes # (Auto) 1.88 K/uL (1.2-3.4) Monocytes # (Auto) 0.55 K/uL (0.11-0.59) Eosinophils # (Auto) 0.17 K/uL (0-0.5) Basophils # (Auto) 0.07 K/uL (0-0.2) RDW Standard Deviation 43.9 fL (36.4-46.3) RDW Coefficient of Variation 14.6 % (11.5-14.5) Immature Granulocyte % (Auto) 0.3 % Immature Granulocyte # (Auto) 0.02 K/uL (0.00-0.02) Prothrombin Time 90.5 SECONDS (9.0-12.0) Prothromb Time International Ratio 7.8 (0.9-1.1) Anion Gap 7.0 mmol/L (3-11) Est Creatinine Clear Calc Drug Dose 106.9 ml/min Estimated GFR () 78.9 Estimated GFR (Non- 68.1 BUN/Creatinine Ratio 10.4 (10-20) Calcium Level 8.3 mg/dl (8.5-10.1) Magnesium Level 2.1 mg/dl (1.8-2.4) Total Bilirubin 0.3 mg/dl (0.2-1) Direct Bilirubin 0.1 mg/dl (0-0.2) Aspartate Amino Transf (AST/SGOT) 30 U/L (15-37) Alanine Aminotransferase (ALT/SGPT) 31 U/L (12-78) Alkaline Phosphatase 116 U/L (45-117) Pro-B-Type Natriuretic Peptide 1120 pg/ml (0-900) Total Protein 7.3 gm/dl (6.4-8.2) Albumin 3.5 gm/dl (3.4-5.0) Lipase 128 U/L (73-393) Thyroid Stimulating Hormone (TSH) 3.050 uIu/ml (0.300-4.500) Troponin I < 0.015 ng/ml (0-0.045) Laboratory results reviewed by me Medications Administered Medications (Trade) Dose Ordered Sig/Efrain Route Start Time Stop Time Status Last Admin Dose Admin Diltiazem HCl (Cardizem Inj) 25 mg NOW STAT IV 04/08/17 09:38 04/08/17 09:42 DC 04/08/17 10:17 25 MG Diltiazem HCl (Cardizem Tab) 30 mg NOW ONCE PO 04/08/17 11:30 04/08/17 11:31 DC 04/08/17 12:12 30 MG ECG Indication: chest pain Rate (beats per minute): 117 Rhythm: atrial fibrillation Findings: RBBB, other (normal axis) Comparison ECG Date: 03/30/17 Change: no significant change ED Course 925: The patient was evaluated in room B8. A complete history and physical exam was performed. 0938: Ordered Cardizem Inj 25 mg IV. 1105: I reevaluated the patient and his heart rate was down into the 90s with resolved symptoms. He has a follow up with Cardiology tomorrow. He will have a repeat troponin drawn. 1130: Ordered Cardizem Inj 30 mg PO. 1321: I reevaluated the patient and he is doing well. I discussed all the exam findings with him and I discussed the treatment plan. He verbalized complete understanding and agreement. He is ready to go home. Medical Decision I reviewed the patient's past medical history, medications, and the nursing notes as described above. The patient's presentation and history were concerning for Afib with RVR, dehydration, electrolyte abnormality, volume overload, CHF, ACS, pneumonia, bronchitis. 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 On arrival the patient is relatively well-appearing in NAD. Afib with rvr to 130s. VS otherwise stable. EKg without signs of acute ischemia. Trop negative. Rate controlled after single dose of IV diltiazem. Given additional PO dose. INR supratheraptic to 7.8 but patient denies any bleeding. Labs otherwise unremarkable. BNP only marginally elevated but CXR with clear lungs. Delta 3 hour trop negative. Patient's symptoms entirely resolved after rate control. Sx most likely 2/2 rapid heart rate. Patient feeling OK to go home. Given patient is well- appearing and has f/u with his cardiology tomorrow d/c is reasonable. Findings and plan for follow-up reviewed with patient. Patient agreeable and d/c'd per discharge instructions. Medication Reconcilliation Current Medication List: was personally reviewed by me Impression Primary Impression: Atrial fibrillation with RVR Critical Care I have personally spent greater than 35 minutes of critical care time in the direct management of this patient. This includes bedside care, interpretation of diagnostic studies, and testing, discussion with consultants, patient, and family members, and other required patient management activities. This 35 minutes is in excess of all separately billable procedures. Scribe Attestation The scribe's documentation has been prepared under my direction and personally reviewed by me in its entirety. I confirm that the note above accurately reflects all work, treatment, procedures, and medical decision making performed by me. Departure Information Dispostion Home / Self-Care Referrals Sandi Roman M.D. (PCP) Forms Call Back Authorization, HOME CARE DOCUMENTATION FORM, IMPORTANT VISIT INFORMATION Patient Instructions Atrial Fibrillation, Coumadin, My [facility] Additional Instructions Please follow up with your digital archivist tomorrow as scheduled for re-evaluation. Your symptoms resolved with control of your heart rate. Otherwise, your exam, EKG, chest xray, and lab results did not show signs of an emergent condition at this time. Hold your next 2 coumadin doses and recheck with your digital archivist tomorrow. Continue your other medications as prescribed. Return to the emergency department for worsening symptoms as described in the accompanying instructions.
[2017-04-08 09:59] LABS: BASO ABS # 0.07 K/uL (0-0.2); COMPLETE YES; EOS % 2.4 %; HEMATOCRIT 38.7 % (42-52); IG% 0.3 %; LYMPH % 26.4 %; LYMPH ABS # 1.88 K/uL (1.2-3.4); MEAN CORPUSCULAR HEMOGLOBIN 26.5 pg (25-34); MEAN CORPUSCULAR HGB CONC 32.3 g/dl (32-36); MEAN PLATELET VOLUME 8.2 fL (7.4-10.4); MONO % 7.7 %; NEUT % 62.2 %; PLATELET COUNT 209 K/uL (130-400); RED BLOOD COUNT 4.72 M/uL (4.7-6.1); WHITE BLOOD COUNT 7.13 K/uL (4.8-10.8)
[2017-04-08 10:16] LABS: ALT/SGPT 31 U/L (12-78); BLOOD UREA NITROGEN 12 mg/dl (7-18); BUN/CREATININE RATIO 10.4 (10-20); CALCIUM 8.3 mg/dl (8.5-10.1); CARBON DIOXIDE 28 mmol/L (21-32); CHLORIDE 106 mmol/L (98-107); CREATININE 1.18 mg/dl (0.60-1.40); GLUCOSE 94 mg/dl (70-99); MAGNESIUM 2.1 mg/dl (1.8-2.4); SODIUM 141 mmol/L (136-145)
[2017-04-08 10:17] LABS: PROTHROMBIN TIME (PATIENT) 90.5 SECONDS (9.0-12.0)
[2017-04-08 10:19] LABS: INR 7.8 (0.9-1.1)
[2017-04-08 10:27] LABS: ALKALINE PHOSPHATASE 116 U/L (45-117); AST/SGOT 30 U/L (15-37)
[2017-04-08] MEDS ORDERED: DILTIAZEM HCL 30 MG TAB PO ONE (11:30)
[2017-04-08 12:37] VITALS: O2SAT 99
[2017-04-08] MEDS ORDERED: FRS/40 PO (12:54)
[2017-04-08] MEDS ORDERED: TRAZ50TA35 PO (12:54)
[2017-04-08] MEDS ORDERED: TRAM-10 PO (12:54)
[2017-04-08] MEDS ORDERED: ESCI10TA17 PO (12:54)
[2017-04-08] MEDS ORDERED: POTA20TA16 PO (12:54)
[2017-04-08] MEDS ORDERED: LEVO50TA6 PO (12:54)
[2017-04-08] MEDS ORDERED: PANT40TA PO (12:54)
[2017-04-08 13:19] VITALS: PULSE 102
[2017-04-08 13:36] VITALS: BP 128/76
== END 2017-04-08 13:44 | disposition home or self-care (01) ==
LOC: C.EDB 09:11
DX: I48.91 Unspecified atrial fibrillation (principal); I25.10 Atherosclerotic heart disease of native coronary artery without angina pectoris; F32.9 Major depressive disorder, single episode, unspecified; E11.9 Type 2 diabetes mellitus without complications; I10 Essential (primary) hypertension; E03.9 Hypothyroidism, unspecified; D50.9 Iron deficiency anemia, unspecified; Q21.0 Ventricular septal defect; E56.9 Vitamin deficiency, unspecified; Z82.49 Family history of ischemic heart disease and other diseases of the circulatory system; Z79.01 Long term (current) use of anticoagulants

== ENCOUNTER → 2017-04-27 | Day surgery (SDC) | payer BC ==
[~2017-04-27] VITALS: Ht 175.3 cm; Wt 177.0 kg
[~2017-04-27] MED LIST changes: +AMIO200T4 PO; -CRD200 PO; +DILT120C68 PO; +ESCI10TA17 PO; +FRS/40 PO; +LEVO50TA6 PO; +MAGN400T6 PO; -METO-479 PO; +METO100T44 PO; -MGNO400 PO; +PANT40TA PO; +POTA20TA16 PO; +PROPOFOL IV EMULSION 10 MG/ML 20 ML VIAL IV ONE; +TRAM-10 PO; +TRAZ50TA35 PO
[2017-04-27 07:11] VITALS: BP 159/101; PULSE 108; TEMP 36.6; O2SAT 96; Ht 175.3 cm; Wt 177.0 kg
[2017-04-27 07:30] VITALS: BP 143/98; PULSE 110; O2SAT 100
[2017-04-27 07:35] VITALS: BP 114/96; PULSE 98; O2SAT 100
[2017-04-27 07:40] VITALS: BP 94/60; PULSE 93; O2SAT 100
--- NOTE | 2017-04-27 07:48 | History & Physical Bridge Note ---
H&P Re-Evaluation Bridge Note: I have examined the patient, reviewed the History & Physical and in the interval since the performance of the History & Physical I have noted the following changes of clinical significance: No changes noted
--- NOTE | 2017-04-27 07:51 | Anesthesiology Progress Note ---
Anesthesia Post Op Note Date & Time Apr 27, 2017 at 07:51 Vital Signs Pain Intensity: 0 Vital Signs Past 12 Hours Date Time Temp Pulse Resp B/P (MAP) Pulse Ox O2 Delivery O2 Flow Rate FiO2 04/27/17 07:40 93 18 94/60 100 Nasal Cannula 4 04/27/17 07:35 98 18 114/96 100 Nasal Cannula 4 04/27/17 07:30 110 18 143/98 100 Nasal Cannula 4 04/27/17 07:11 36.6 108 16 159/101 96 Room Air Notes Mental Status: alert / awake / arousable, participated in evaluation Pt Amnestic to Procedure: Yes Nausea / Vomiting: adequately controlled Pain: adequately controlled Airway Patency, RR, SpO2: stable & adequate BP & HR: stable & adequate Hydration State: stable & adequate Anesthetic Complications: no major complications apparent Doing well. Awake. VSS.
--- NOTE | 2017-04-27 08:09 | CARDIOVERSION ---
DATE OF OPERATION: 04/27/2017 HISTORY: The patient is a 57-year-old male patient with persistent atrial fibrillation. He has been on amiodarone, metoprolol, diltiazem, and Coumadin for several weeks. He is now brought in for an elective cardioversion for atrial fibrillation. PROCEDURE SUMMARY: The patient was seen and evaluated in the holding area of the laboratory scientist. He was given sedation by anesthesia. He then received 300, 300 and then 360 joules of biphasic energy. He was able to show sinus mechanism for only a brief, less than a second amount of time and then reverted back to atrial fibrillation. At this point, we will most likely treat him with rate control and anticoagulation. He tolerated the procedure well and will return home today with outpatient followup. I attest to the content of the Intraoperative Record and any orders documented therein. Any exception s are noted below.
[2017-04-27 09:30] VITALS: BP 101/82; PULSE 77; O2SAT 96
--- NOTE | 2017-04-27 09:56 | Discharge Instructions ---
Discharge Instructions Date of Service Apr 27, 2017. Admission Reason for Admission: A Fib W/Anesthesia * To Do* Discharge Discharge Diagnosis / Problem: Atrial fib Discharge Goals Goal(s): Improve function Activity Recommendations Activity Limitations: resume your previous activity . Instructions / Follow-Up Instructions / Follow-Up Office will call with follow-up Current Hospital Diet Patient's current hospital diet: AHA Diet (Heart Healthy) Discharge Diet Recommended Diet: AHA Diet (Heart Healthy) Pending Studies Studies pending at discharge: no Laboratory Results Hemoglobin A1c Test 03/28/17 05:09 Range/Units Estimated Average Glucose 103 mg/dl Hemoglobin A1c 5.2 4.5-5.6 % Lipid Panel Test 03/29/17 06:03 Range/Units Triglycerides Level 90 0-150 mg/dl Cholesterol Level 98 0-200 mg/dl HDL Cholesterol 49 mg/dl Cholesterol/HDL Ratio 2.0 LDL Cholesterol, Calculated 31 mg/dl Medical Emergencies . Who to Call and When: Medical Emergencies: If at any time you feel your situation is an emergency, please call 911 immediately. . Non-Emergent Contact Non-Emergency issues call your: Surg Physician Asst . . "Provider Documentation" section prepared by Kadeem Frey. . VTE Core Measure Inpt VTE Proph given/why not?: Warfarin (Coumadin)
== END | disposition home or self-care (01) ==
LOC: C.CATH 05:51
PROVIDERS: ATTEND Internal Medicine Interventional Cardiology
DX: I48.1 Persistent atrial fibrillation (principal); I45.10 Unspecified right bundle-branch block; F32.9 Major depressive disorder, single episode, unspecified; E66.01 Morbid (severe) obesity due to excess calories; Z68.43 Body mass index [BMI] 50.0-59.9, adult; Z98.84 Bariatric surgery status; E07.9 Disorder of thyroid, unspecified; Z79.01 Long term (current) use of anticoagulants; Z79.899 Other long term (current) drug therapy

== ENCOUNTER → 2017-05-04 | Outpatient (CLI) | payer BC ==
[~2017-05-04] MED LIST changes: -PROPOFOL IV EMULSION 10 MG/ML 20 ML VIAL IV ONE
--- NOTE | 2017-05-05 04:51 | PAP/PSG TECHNICIAN REPORT ---
[facility] Planner Internship Polysomnogram Report Study name: None Report date: 05/05/2017 Study date: 05/04/2017 Referring Physician: Dr. Frey Name: OMA OWENS Interpreting Physician: Zhang Baeza M.D. Date of : 1960 Planner Internship: SHANELLE Brooke. Sex: Male Age: 57 StudyType: PSG Weight: 395 lbs Height: 57 years, Height BMI: Medications: CORDARONE 200 MG, LEXAPRO 10 MG, LASIX 40 MG, SYNTHROID 60 MCG, MAGNESIUM OXIDE 240 MG, TOPROL XL 100 MG, PROTONIX 40 MG, KLOR-CON 20 MEQ, TRAMADOL HCL ER 100 MG, TRAZADONE 80 MG, COUMADIN 10 MG Patient History PATIENT HAS HISTORY OF OBESITY, SNORING, DAYTIME FATIGUE AND CARDIAC ARRHTHYMIA'S. HE IS HERE TODAY FOR AN EVALUATION FOR PHYLLIS. ESS = 5 RM 5 Parameters Monitored NPSG: E1-M2, E2-M1, Fp1-M2, Fp2-M1, F3-M2, F4-M2, F4-M1, C3-M2, C4-M2, C4-M1, O1-M2, O2-M2, O2-M1, T3-M2, T4-M1, P3-M2, P4-M1, CHIN1, CHIN2, HR, EKG, Legs, PFLOW, SNOR, FLOW, CFLOW, Tidal Volume, THOR, ABDO, SpO2, PLTH, CPRESS, ETCO2 Wave, ETCO2, pH Sleep Architecture Sleep Stages Time at Lights Off 9:36:05 PM STAGES Time (min.) TST (%) Time at Lights On 4:34:05 AM Wake 191.0 -- Total Recording Time (TRT) 418.50 min. N1 36.0 16 Total Sleep Period (TSP) 347.5 min. N2 177.0 78 Total Sleep Time (TST) 227.0min. N3 0.0 0 Awake Time 191.5 min. REM 14.0 6 Wake after Sleep Onset 126.5 min. Sleep Efficiency (SE) 54 % Sleep Onset Latency (GUERRERO) 64.5 min. Number of Stage 1 Shifts None Awakenings 25 Stage Changes 92 Number of REM periods 2 REM 14.0 6 REM Latency 235.0 min. NREM 213.0 94 Body Position Analysis Supine Right Left Side Prone Vertical Total Sleep Time (min.) 361.8 34.4 0.0 34.44 0.0 0.0 Total Sleep Time (%) 85% 15% 0% 15 0% N/A% Total Sleep Time REM (min.) 14.0 0.0 0.0 None 0.0 0.0 Total Sleep Time NREM (min.) 178.6 34.4 0.0 None 0.0 0.0 Intermittent Wake (min.) 169.2 21.8 0.0 None 0.0 0.0 Total Sleep Period (%) 84% None None None None None Arousals Myoclonus (PLM) * Events Count Index Events Count Index Spontaneous 54 14 Events Awake (PLMW) 199 62.5 Respiratory 22 6.1 Events Asleep w/ Arousal (PLMA) 17 4.5 PLM 17 4 Events Asleep w/o Arousal (PLMS) 126 33.3 Snoring 17 4 Total Asleep 143 37.8 Total 110 29 Total 342 49 Respiratory Analysis * CA OA MA CH H RERA Total Count 0 1 0 0 126 0 127 Index 0.0 0.3 0.0 0 33.3 0 33.6 Mean Duration 0.0 11.6 0.0 0.00 19.5 0.0 19.4 Longest Duration 0.0 11.6 0.0 0.00 0.0 0.0 55.7 Respiratory Event Summary Total Supine ~Supine Right Left Prone REM NREM Apneas Count 1 1 0 0 N/A N/A 0 1 Index 0.3 0 0 0.0 N/A N/A 0 0 Hypopneas (4% Desat) Count 126 100 26 26 N/A N/A 13 113 Index 33.3 31.2 45 45.3 N/A N/A 55.7 31.8 Apneas & All Hypopneas Count 127 101 26 26 N/A N/A 13 114 Index 33.6 31 45 45 N/A N/A 55.7 32.1 Respiratory Events (Form Maker+All Hyp+RERA) Count 127 101 26 26 N/A N/A 13 114 Index 33.6 31 45 45.3 N/A N/A 55.7 32.1 Respiratory Related Arousal Count 22 101 5 5 N/A N/A 2 21 Index 6.1 6 9 9 N/A N/A 9 6 Snoring Analysis Supine Right Left Prone REM NREM Total Snore duration 30.3 min Snores count 1,346 244 N/A N/A 43 1,547 1,590 Snore mean duration 1.1 Sec Snores index 419 425 N/A N/A 184.3 435.8 420.3 TST with snoring (%) 13.4% Desaturation Event Summary: Minimum %SpO2 Event Count Mean/Min/Max Duration(sec.) Desaturation Index % Time In Bed > 90 119 27.6 / 9.5 / 60.0 29.2 58.7 86 - 90 28 22.5 / 13.0 / 40.8 10.6 37.9 81 - 85 0 N/A 0.0 3.1 76 - 80 1 15.0 / 15.0 / 15.0 54.5 0.3 71 - 75 1 15.0 / 15.0 / 15.0 288.0 0.1 66 - 70 0 N/A 0.0 0.0 61 - 65 0 N/A 0.0 0.0 56 - 60 0 N/A 0.0 0.0 51 - 55 0 N/A 0.0 0.0 < 50 0 N/A 0.0 0.0 Total REM NREM Awake <50% 0.0 min. 0.0 min. 0.0 min. 0.0 min. 51 - 60% 0.0 min. 0.0 min. 0.0 min. 0.0 min. 61 - 70% 0.1 min. 0.1 min. 0.0 min. 0.0 min. 71 - 80% 1.3 min. 0.8 min. 0.0 min. 0.5 min. 81 - 90% 170.5 min. 6.3 min. 147.1 min. 17.0 min. 91 - 100% 244.8 min. 6.8 min. 65.7 min. 172.3 min. Average 91 89 89 92 Minimum SpO2 68 68 83 75 Desaturation Event Index 19.1 68.6 31.0 2.5 # Desat. Events below 89% 108 12 92 4 Time(%) with Saturation below 89% 22.7 1.1 20.6 0.9 Time(min.) with Saturation below 89% 94.6 4.7 86.0 3.9 Time (mins) REM (mins) NREM (mins) % of TST SpO2 Below 90% 125 16 N109 55.9 SpO2 Below 88% 46 0 0 20 Heart Rate Analysis Min (bpm) Max (bpm) Average (bpm) Awake 64 111 84 NREM 63 100 79 REM 64 92 77 Overall 63 100 79 Supplemental O2 Values Minimum O2 level: None Value Start Time End Time Planner Internship Comments Mr. Owens slept in the right and supine positions. Irregular EKG noted at times. Leg movements noted. No bruxism noted. Snoring was noted and scored as a 4 on a scale of 1 through 5. (0=no snoring, 5=snoring loud enough to be heard through a closed door or down the hdz way) Mr. Owens awoke to use the restroom 0 times during the night. Mr. Owens stated I did not sleep as well as I do when I am in my own bed. The final report will be interpreted and signed by a sleep physician. The completed physician report will then be placed in the patient medical record. Therapy (cm H2O) 0 TIB (min.) 418.0 TST (min.) 227.0 Sleep Onset (min.) 64.5 REM Onset From Sleep (min.) 235.0 Sleep Efficiency % 54 Wakefulness (%) 46 Wakefulness (min.) 191.5 NREM 1 (%) 16 NREM 1 (min.) 36.0 NREM 2 (%) 78 NREM 2 (min.) 177.0 NREM 3 (%) 0 NREM 3 (min.) 0.0 REM (%) 6 REM (min.) 14.0 # Arousals 110 Arousal Index 29 # Snore 1,590 Snore Index 420.3 AHI 33.6 AHI Supine 31 AHI Non-Supine 45 NREM AHI 32.1 REM AHI 55.7 RDI 33.6 # Obstructive Apnea 1 # Central Apnea 0 # Mixed Apnea 0 # Hypopneas 126 RERAs 0 Total Respiratory Events 128 Time Below SpO2 89% (min.) 90.7 Mean NREM SpO2 (%) 89 Mean REM SpO2 (%) 89 Mean Sleep SpO2 (%) 89 Min NREM SpO2 (%) 83 Min REM SpO2 (%) 68 Position Supine (min.) 361.8 Position Non-supine (min.) 34.4 LM Index Sleep 37.8 LM Index NREM 40.3 LM Index REM 0.0 Mean Heart Rate (bpm) 79 Min Heart Rate (bpm) 63
--- NOTE | 2017-05-10 10:45 | POLYSOMNOGRAPH REPORT ---
CLINICAL DATA: A 57-year-old male with a weight of [address] Frey for evaluation of obesity, snoring, daytime fatigue, and cardiac arrhythmias. His [place] sleepiness score is 5/24. SLEEP ARCHITECTURE: Total sleep period was 347.5 minutes. Total sleep time was 227 minutes divided between 213 minutes of non-REM sleep and 14 minutes of REM sleep. Sleep onset latency was delayed at 64.5 minutes. REM latency was delayed at 235 minutes. Sleep efficiency was reduced at 54%. Wake after sleep onset was 126.5 minutes. Sleep consisted of stage N1 16%, stage N2 78%, and REM 6%. AROUSAL DATA: 110 arousals were recorded for an index of 29 per hour. PLM DATA: 143 limb movements during sleep were noted for an index of 37.8 per hour with arousal index of 4.5 per hour. RESPIRATORY DATA: Severe sleep apnea was documented. The AHI was 33.6. There was 1 obstructive apneic episode, 11.6 seconds in duration. There were 126 hypopneic episodes with a mean duration of 19.5 seconds. OXIMETRY DATA: Nocturnal hypoxemia was seen. Oxygen sid was 68% during REM. The mean saturation was 91%. Time below 88% was 46 minutes. EKG: Heart rates ranged from 63-100 beats per minute. COMPUTER SYSTEMS SOFTWARE ENGINEER'S COMMENTS: The patient slept in the right and supine positions. Snoring was severe, rated 4 on a scale of 1-5. IMPRESSION: Severe obstructive sleep apnea with an AHI of 33.6 with nocturnal hypoxemia. RECOMMENDATIONS: The patient may benefit from a repeat sleep study with CPAP or use of auto CPAP. Clinical correlation is needed. PATSY
== END | disposition home or self-care (01) ==
LOC: C.NEUR 21:00
PROVIDERS: ATTEND Internal Medicine Interventional Cardiology
DX: E66.9 Obesity, unspecified (principal); G47.33 Obstructive sleep apnea (adult) (pediatric)

== ENCOUNTER 2017-07-17 11:15 | Emergency (ER) | payer BC ==
[~2017-07-17] VITALS: Ht 175.3 cm; Wt 146.0 kg
[2017-07-17 11:21] VITALS: Ht 175.3 cm; Wt 146.0 kg
--- NOTE | 2017-07-17 12:13 | EMERGENCY ROOM VISIT NOTE ---
History Report prepared by Scribe: Evelyn Chua Under the Supervision of: Dr. Jose Eldridge M.D. First contact with patient: 11:35 Chief Complaint: LEG PAIN,LEG INJURY Stated Complaint: LEG SWELLING AND RED, TROUBLE BREATHING History of Present Illness The patient is a 57 year old male who presents to the Emergency Room with complaints of persistent bilateral leg pain and swelling for the past 3 days. He rates his discomfort as a 5/10 in severity. This morning he also noticed bilateral hand swelling, so he came to the ED. He denies any recent changes in his diet. The patient has a history of atrial fibrillation and CHF and reports with any recent movement or exertion, he becomes short of breath. He states "I feel like I've put 20 pounds on in the last 3 days". He has been taking his Lasix as prescribed and took his regular dose this morning. He denies any fevers , chills, cough, chest pain, nausea or vomiting. He is on daily Coumadin and follows with Dr. Frey of [facility]. Source of History: patient Onset: 3 days EXPANDER Position: leg (bilateral) Symptom Intensity: 5/10 Timing: other (persistent) Associated Symptoms: + SOB, No fevers, No chills, No cough, No chest pain, No nausea, No vomiting Review of Systems See HPI for pertinent positives and negatives. A total of ten systems were reviewed and were otherwise negative. Past Medical & Surgical Medical Problems: (1) Coronary artery disease (2) Depression (3) Diabetes mellitus type 2, controlled (4) History of colonic polyps (5) History of urinary calculi (6) Hypertension (7) Hypothyroidism (8) Insomnia (9) Iron deficiency anemia (10) Paroxysmal atrial fibrillation (11) Ventricular septal defect (12) Vitamin B12 deficiency Surgical Problems: (1) Status post cardiac catheterization (2) Status post cystoscopy (3) Status post gastric bypass for obesity Family History Heart disease GRANDFATHER GRANDMOTHER Hypertension GRANDFATHER GRANDFATHER GRANDMOTHER GRANDMOTHER Social History Smoking Status: Never Smoker Alcohol Use: none Drug Use: none Marital Status: single Housing Status: lives alone Occupation Status: retired Current/Historical Medications Scheduled Amiodarone Hcl (Cordarone), 200 MG PO BID Diltiazem Hcl Ext Rel (Tiazac), 120 MG PO DAILY Escitalopram (Lexapro), 10 MG PO QAM Furosemide (Lasix), 40 MG PO QAM Furosemide (Lasix), 1 TAB PO QAM Levothyroxine Sodium (Levothyroxine Sodium), 50 MCG PO DAILY Magnesium Oxide (Mag-Ox), 400 MG PO BID Metoprolol Succ (Toprol Xl) (Toprol-Xl ), 100 MG PO BID Pantoprazole (Protonix), 40 MG PO DAILY Potassium Ext Rel (Klor-Con), 20 MEQ PO QPM Tramadol (Ultram), 100 MG PO QAM Trazodone Hcl (Trazodone), 50 MG PO HS Warfarin Sod (Jantoven), 5 MG PO 5XWK Warfarin Sod (Jantoven), 7.5 MG PO 2XWK Allergies Coded Allergies: No Known Allergies (Unverified , `, 07/17/17) Physical Exam Vital Signs Date Time Temp Pulse Resp B/P (MAP) Pulse Ox O2 Delivery O2 Flow Rate FiO2 07/17/17 14:58 36.7 83 20 141/91 97 07/17/17 14:40 97 Room Air 07/17/17 14:39 83 20 141/91 97 Room Air 07/17/17 12:55 86 07/17/17 11:21 36.7 95 20 148/93 96 Room Air Physical Exam GENERAL: Awake, alert, fatigued-appearing, in no distress HENT: Normocephalic, atraumatic. Oropharynx unremarkable. Dry mucous membranes. EYES: Normal conjunctiva. Sclera non-icteric. NECK: Supple. No nuchal rigidity. FROM. No JVD. RESPIRATORY: Diminished breath sounds at the bases, otherwise clear. CARDIAC: Irregularly irregular. Extremities warm and well perfused. Pulses equal. ABDOMEN: Soft, obese, non-distended. No tenderness to palpation. No rebound or guarding. No masses. RECTAL: Deferred. MUSCULOSKELETAL: Chest examination reveals no tenderness. The back is symmetrical on inspection without obvious abnormality. There is no CVA tenderness to palpation. No joint edema. LOWER EXTREMITIES: Calves are equal size bilaterally and non-tender. 2+ lower extremity edema. No discoloration. NEURO: Normal sensorium. No sensory or motor deficits noted. SKIN: No rash or jaundice noted. Medical Decision & Procedures ER Provider Diagnostic Interpretation: Radiology results as stated below per my review and radiologist interpretation: CHEST ONE VIEW PORTABLE CLINICAL HISTORY: CHEST PAIN COMPARISON STUDY: Chest radiograph April 08, [address] March 27, 2017. FINDINGS: Moderate cardiomegaly is unchanged. There is no evidence of pulmonary edema. No pneumothorax or pleural effusion is noted. There are apparent bibasilar opacities. Exam is compromised given portable technique and body habitus. IMPRESSION: 1. Moderate cardiomegaly without evidence of pulmonary edema. 2. Apparent bibasilar opacities. Artifact is favored however consolidation could appear similar. Electronically signed by: Perry Zheng M.D. 07/17/2017 12:39 PM Laboratory Results 07/17/17 12:29 Red Blood Count 4.49, Mean Corpuscular Volume 81.7, Mean Corpuscular Hemoglobin 24.9, Mean Corpuscular Hemoglobin Concent 30.5, Mean Platelet Volume 8.4, Neutrophils (%) (Auto) 65.8, Lymphocytes (%) (Auto) 22.4, Monocytes (%) (Auto) 8.1, Eosinophils (%) (Auto) 2.6, Basophils (%) (Auto) 0.8, Neutrophils # (Auto) 4.82, Lymphocytes # (Auto) 1.64, Monocytes # (Auto) 0.59, Eosinophils # (Auto) 0.19, Basophils # (Auto) 0.06 07/17/17 12:29 Test 07/17/17 12:29 White Blood Count 7.32 K/uL (4.8-10.8) Red Blood Count 4.49 M/uL (4.7-6.1) Hemoglobin 11.2 g/dL (14.0-18.0) Hematocrit 36.7 % (42-52) Mean Corpuscular Volume 81.7 fL (80-100) Mean Corpuscular Hemoglobin 24.9 pg (25-34) Mean Corpuscular Hemoglobin Concent 30.5 g/dl (32-36) Platelet Count 182 K/uL (130-400) Mean Platelet Volume 8.4 fL (7.4-10.4) Neutrophils (%) (Auto) 65.8 % Lymphocytes (%) (Auto) 22.4 % Monocytes (%) (Auto) 8.1 % Eosinophils (%) (Auto) 2.6 % Basophils (%) (Auto) 0.8 % Neutrophils # (Auto) 4.82 K/uL (1.4-6.5) Lymphocytes # (Auto) 1.64 K/uL (1.2-3.4) Monocytes # (Auto) 0.59 K/uL (0.11-0.59) Eosinophils # (Auto) 0.19 K/uL (0-0.5) Basophils # (Auto) 0.06 K/uL (0-0.2) RDW Standard Deviation 52.8 fL (36.4-46.3) RDW Coefficient of Variation 17.7 % (11.5-14.5) Immature Granulocyte % (Auto) 0.3 % Immature Granulocyte # (Auto) 0.02 K/uL (0.00-0.02) Prothrombin Time 19.1 SECONDS (9.0-12.0) Prothromb Time International Ratio 1.8 (0.9-1.1) Anion Gap 7.0 mmol/L (3-11) Est Creatinine Clear Calc Drug Dose 99.4 ml/min Estimated GFR () 79.7 Estimated GFR (Non- 68.8 BUN/Creatinine Ratio 12.1 (10-20) Calcium Level 8.1 mg/dl (8.5-10.1) Magnesium Level 1.9 mg/dl (1.8-2.4) Total Bilirubin 0.5 mg/dl (0.2-1) Direct Bilirubin 0.2 mg/dl (0-0.2) Aspartate Amino Transf (AST/SGOT) 25 U/L (15-37) Alanine Aminotransferase (ALT/SGPT) 32 U/L (12-78) Alkaline Phosphatase 128 U/L (45-117) Troponin I < 0.015 ng/ml (0-0.045) Pro-B-Type Natriuretic Peptide 1379 pg/ml (0-900) Total Protein 6.9 gm/dl (6.4-8.2) Albumin 3.5 gm/dl (3.4-5.0) Lipase 79 U/L (73-393) Laboratory results reviewed by me Medications Administered Medications (Trade) Dose Ordered Sig/Efrain Route Start Time Stop Time Status Last Admin Dose Admin Furosemide (Lasix Inj) 40 mg NOW STAT IV 07/17/17 13:59 07/17/17 14:01 DC 07/17/17 14:33 40 MG ECG Indication: SOB/dyspnea Rate (beats per minute): 85 Rhythm: atrial fibrillation Findings: RBBB, no acute ischemic change, other (Normal axis) Change: no significant change (Similar to prior EKG from 04/27/2017) Change: Patient's electrocardiogram interpreted by me. ED Course 1207: The patient was evaluated in room A4. A complete history and physical exam was performed. 1445: I reevaluated the patient. He is feeling well and resting comfortably. I discussed his results and discharge instructions and he verbalized complete understanding and agreement. Medical Decision I reviewed the patient's past medical history, medications, and the nursing notes as described above. The patient's presentation and history were concerning for infections, reactive airway disease, pneumonia, pneumothorax, COPD, CHF, cardiac ischemia, pulmonary embolism, musculoskeletal, gastrointestinal, as well as others were entertained. The patient is a 57 yo gentleman with a pmhx of afib on coumadin, chf on lasix presents to the emergency department with BLE pain/soreness in the setting of feeling as though he is gaining water weight per HPI. On arrival the patient is fatigued-appearing but in NAD, AFVSS. O2 sat wnl on RA. Labs unremarkable including WBC wnl. BNP 1200 at baseline. CXR negative for fluid overload. Given AF and wbc wnl basilar findings most likely atelectasis. INR subtherapeutic today to 1.8 however given BLE symmetric DVT not likely. Moreover, would not have any change in management. Patient given IV dose of Lasix given his recent weight gain. Has f/u with cards next week with Dr. Frey. Findings and plan for follow-up reviewed with patient. Patient running out of his Lasix so given RX until his next visit. Patient agreeable and d/c'd per discharge instructions. Medication Reconcilliation Current Medication List: was personally reviewed by me Blood Pressure Screening Patient's blood pressure: Elevated blood pressure Blood pressure disposition: Referred to PCP Impression Primary Impression: Bilateral leg pain Scribe Attestation The scribe's documentation has been prepared under my direction and personally reviewed by me in its entirety. I confirm that the note above accurately reflects all work, treatment, procedures, and medical decision making performed by me. Departure Information Dispostion Home / Self-Care Prescriptions Furosemide (LASIX) 40 Mg Tab 1 TAB PO QAM for 30 Days, #30 TAB Prov: Jose Eldridge M.D. 07/17/17 Referrals Sandi Roman M.D. (PCP) Patient Instructions Atrial Fibrillation, ED CHF General, ED Muscle Pain Leg Cramps, My [facility] Additional Instructions Please follow up with your motor vehicle operator road supervisor, Dr. Frey, next week as scheduled for re-evaluation. Your Coumadin level was slightly low and should be repeated with your coagulation clinic this week. Otherwise, your exam, EKG, chest xray, and lab results did not show signs of an emergent condition at this time. Continue your current medications as prescribed. Maintain a diary of your daily weights to help inform your Lasix dosing. Return to the emergency department for worsening symptoms as described in the accompanying instructions.
[2017-07-17 12:41] LABS: BASO % 0.8 %; BASO ABS # 0.06 K/uL (0-0.2); EOS % 2.6 %; EOS ABS # 0.19 K/uL (0-0.5); HEMATOCRIT 36.7 % (42-52); HEMOGLOBIN 11.2 g/dL (14.0-18.0); IG# 0.02 K/uL (0.00-0.02); LYMPH % 22.4 %; LYMPH ABS # 1.64 K/uL (1.2-3.4); MEAN CELL VOLUME 81.7 fL (80-100); MEAN CORPUSCULAR HEMOGLOBIN 24.9 pg (25-34); MEAN CORPUSCULAR HGB CONC 30.5 g/dl (32-36); MEAN PLATELET VOLUME 8.4 fL (7.4-10.4); MONO % 8.1 %; MONO ABS # 0.59 K/uL (0.11-0.59); NEUT % 65.8 %; NEUT ABS # 4.82 K/uL (1.4-6.5); PLATELET COUNT 182 K/uL (130-400); RED CELL DISTRIBUTION WIDTH CV 17.7 % (11.5-14.5); RED CELL DISTRIBUTION WIDTH SD 52.8 fL (36.4-46.3); WHITE BLOOD COUNT 7.32 K/uL (4.8-10.8)
--- NOTE | 2017-07-17 12:41 | DIAGNOSTIC IMAGING REPORT ---
CHEST ONE VIEW PORTABLE CLINICAL HISTORY: CHEST PAIN COMPARISON STUDY: Chest radiograph April 08, [address] March 27, 2017. FINDINGS: Moderate cardiomegaly is unchanged. There is no evidence of pulmonary edema. No pneumothorax or pleural effusion is noted. There are apparent bibasilar opacities. Exam is compromised given portable technique and body habitus. IMPRESSION: 1. Moderate cardiomegaly without evidence of pulmonary edema. 2. Apparent bibasilar opacities. Artifact is favored however consolidation could appear similar. Electronically signed by: Perry Zheng M.D. 07/17/2017 12:39 PM Dictated Date/Time: 07/17/2017 12:37 PM
[2017-07-17 12:54] LABS: ALBUMIN 3.5 gm/dl (3.4-5.0); ALT/SGPT 32 U/L (12-78); BLOOD UREA NITROGEN 14 mg/dl (7-18); CALCIUM 8.1 mg/dl (8.5-10.1); CARBON DIOXIDE 27 mmol/L (21-32); CREATININE 1.17 mg/dl (0.60-1.40); GLUCOSE 90 mg/dl (70-99); LIPASE 79 U/L (73-393); SODIUM 141 mmol/L (136-145)
[2017-07-17 13:00] LABS: ALKALINE PHOSPHATASE 128 U/L (45-117); AST/SGOT 25 U/L (15-37); TOTAL PROTEIN 6.9 gm/dl (6.4-8.2)
[2017-07-17 13:09] LABS: INR 1.8 (0.9-1.1)
[2017-07-17] MEDS ORDERED: WARF5TAB7 PO ×2 (13:15)
[2017-07-17] MEDS ORDERED: FUROSEMIDE 40 MG/4 ML VIAL IV STA (13:59)
[2017-07-17 14:40] VITALS: O2SAT 97
[2017-07-17] MEDS ORDERED: FURO40TA3 PO (14:49)
[2017-07-17 14:58] VITALS: BP 141/91; PULSE 83; TEMP 36.7; O2SAT 97
== END 2017-07-17 14:58 | disposition home or self-care (01) ==
LOC: C.EDB 11:17 → C.EDA 14:58
DX: M79.604 Pain in right leg (principal); M79.605 Pain in left leg; I48.91 Unspecified atrial fibrillation; I50.9 Heart failure, unspecified; I25.10 Atherosclerotic heart disease of native coronary artery without angina pectoris; F32.9 Major depressive disorder, single episode, unspecified; E11.9 Type 2 diabetes mellitus without complications; Z86.010 Personal history of colon polyps; Z87.440 Personal history of urinary (tract) infections; I11.0 Hypertensive heart disease with heart failure; E66.9 Obesity, unspecified; Z98.84 Bariatric surgery status; E53.8 Deficiency of other specified B group vitamins; Z82.49 Family history of ischemic heart disease and other diseases of the circulatory system; Z79.01 Long term (current) use of anticoagulants; Z79.899 Other long term (current) drug therapy; Z68.42 Body mass index [BMI] 45.0-49.9, adult

== ENCOUNTER → 2017-08-09 | Outpatient (CLI) | payer BC ==
[~2017-08-09] MED LIST changes: -CMD10 PO; +FURO40TA3 PO; +WARF5TAB7 PO
--- NOTE | 2017-08-10 05:27 | PAP/PSG TECHNICIAN REPORT ---
[facility] Sample Room Supervisor Polysomnogram Report Study name: None Report date: 08/10/2017 Study date: 08/09/2017 Referring Physician: Dr. Mindi Gonzales M.D. Name: OMA OWENS Interpreting Physician: Zhang Baeza M.D. Date of : 1960 Sample Room Supervisor: Piper Chong RPS. Sex: Male Age: 57 StudyType: PSG PAP Weight: 452 lbs Height: 57 years, Height 5' 8" BMI: 68.72 Medications: Warfarin Sodium 5 mg, Potassium Chloride 20 MEQ, Diltiazem HCL ER 240 mg, Metoprolol Succinate XL 100 mg, Magnesium Oxide 400 mg, Escitalopam 10 mg, Furosemide 40 mg, Levothyroxine 50 mcg, Pantoprazole 40 mg, Tramadol 100 mg, Trazodone 50 mg Patient History 57 yr. old male here for a new titration sleep study. Patients PSG was done on 05/04/17 and had an AHI of 33.6. ESS 09/04. Parameters Monitored NPSG: E1-M2, E2-M1, Fp1-M2, Fp2-M1, F3-M2, F4-M2, F4-M1, C3-M2, C4-M2, C4-M1, O1-M2, O2-M2, O2-M1, T3-M2, T4-M1, P3-M2, P4-M1, CHIN1, CHIN2, HR, EKG, Legs, PFLOW, SNOR, FLOW, CFLOW, Tidal Volume, THOR, ABDO, SpO2, PLTH, CPRESS, ETCO2 Wave, ETCO2, pH Sleep Architecture Sleep Stages Time at Lights Off 9:09:43 PM STAGES Time (min.) TST (%) Time at Lights On 5:09:13 AM Wake 116.0 -- Total Recording Time (TRT) 480.00 min. N1 63.0 17 Total Sleep Period (TSP) 466.5 min. N2 222.5 61 Total Sleep Time (TST) 363.5min. N3 1.5 0 Awake Time 116.0 min. REM 76.5 21 Wake after Sleep Onset 103.0 min. Sleep Efficiency (SE) 76 % Sleep Onset Latency (UGERRERO) 13.0 min. Number of Stage 1 Shifts None Awakenings 41 Stage Changes 163 Number of REM periods 4 REM 76.5 21 REM Latency 191.5 min. NREM 287.0 79 Body Position Analysis Supine Right Left Side Prone Vertical Total Sleep Time (min.) 0.0 0.0 0.0 0.00 0.0 479.5 Total Sleep Time (%) 0% 0% 0% 0 0% 100% Total Sleep Time REM (min.) 0.0 0.0 0.0 None 0.0 76.5 Total Sleep Time NREM (min.) 0.0 0.0 0.0 None 0.0 287.0 Intermittent Wake (min.) 0.0 0.0 0.0 None 0.0 116.0 Total Sleep Period (%) 0% None None None None None Arousals Myoclonus (PLM) * Events Count Index Events Count Index Spontaneous 21 3 Events Awake (PLMW) 15 7.8 Respiratory 9 1.5 Events Asleep w/ Arousal (PLMA) 43 7.1 PLM 43 7 Events Asleep w/o Arousal (PLMS) 373 61.6 Snoring 7 1 Total Asleep 416 68.7 Total 80 13 Total 431 54 Respiratory Analysis * CA OA MA CH H RERA Total Count 2 8 1 0 134 2 145 Index 0.3 1.3 0.2 0 22.1 0 24.3 Mean Duration 16.7 13.6 12.9 0.00 21.3 24.1 20.8 Longest Duration 16.8 22.7 12.9 0.00 12.9 26.0 59.1 Respiratory Event Summary Total Supine ~Supine Right Left Prone REM NREM Apneas Count 11 N/A 11 N/A N/A N/A 5 6 Index 1.8 N/A 2 N/A N/A N/A 4 1 Hypopneas (4% Desat) Count 134 N/A 134 N/A N/A N/A 22 112 Index 22.1 N/A 22 N/A N/A N/A 17.3 23.4 Apneas & All Hypopneas Count 145 N/A 145 N/A N/A N/A 27 118 Index 23.9 N/A 24 N/A N/A N/A 21.2 24.7 Respiratory Events ([place] [employer] Crane Operator+All Hyp+RERA) Count 145 N/A 147 N/A N/A N/A 27 118 Index 24.3 N/A 24 N/A N/A N/A 21.2 25.1 Respiratory Related Arousal Count 9 N/A 9 N/A N/A N/A 0 9 Index 1.5 N/A 1 N/A N/A N/A 0 2 Snoring Analysis Supine Right Left Prone REM NREM Total Snore duration 3.4 min Snores count N/A N/A N/A N/A 12 137 149 Snore mean duration 1.4 Sec Snores index N/A N/A N/A N/A 9.4 28.6 24.6 TST with snoring (%) 0.9% Desaturation Event Summary: Minimum %SpO2 Event Count Mean/Min/Max Duration(sec.) Desaturation Index % Time In Bed > 90 163 20.4 / 5.5 / 60.0 39.4 52.6 86 - 90 67 21.1 / 6.5 / 60.0 19.3 44.1 81 - 85 2 28.1 / 16.5 / 39.8 14.0 1.8 76 - 80 2 33.3 / 16.5 / 50.0 18.2 1.4 71 - 75 0 N/A 0.0 0.1 66 - 70 0 N/A 0.0 0.0 61 - 65 0 N/A 0.0 0.0 56 - 60 0 N/A 0.0 0.0 51 - 55 0 N/A 0.0 0.0 < 50 0 N/A 0.0 0.0 Total REM NREM Awake <50% 0.0 min. 0.0 min. 0.0 min. 0.0 min. 51 - 60% 0.0 min. 0.0 min. 0.0 min. 0.0 min. 61 - 70% 0.0 min. 0.0 min. 0.0 min. 0.0 min. 71 - 80% 7.3 min. 7.3 min. 0.0 min. 0.0 min. 81 - 90% 216.6 min. 48.6 min. 145.3 min. 22.8 min. 91 - 100% 248.2 min. 16.0 min. 141.0 min. 91.3 min. Average 91 88 91 92 Minimum SpO2 74 74 85 80 Desaturation Event Index 22.1 21.2 30.9 1.6 # Desat. Events below 89% 111 19 92 0 Time(%) with Saturation below 89% 19.4 8.1 10.5 0.8 Time(min.) with Saturation below 89% 91.7 38.4 49.5 3.8 Time (mins) REM (mins) NREM (mins) % of TST SpO2 Below 90% 156 25 N131 40.1 SpO2 Below 88% 43 0 0 12 Heart Rate Analysis Min (bpm) Max (bpm) Average (bpm) Awake 37 129 78 NREM 45 127 75 REM 52 225 72 Overall 45 225 75 Supplemental O2 Values Minimum O2 level: None Value Start Time End Time Sample Room Supervisor Comments Mr. Owens slept upright in the supine position positions. Cardiac arrhythmia and frequent PLM's noted. No bruxism noted. CPAP was initiated at +4 CMH2O and up-titrated to al level of + 12 CMH2O At this pressure the mask was tightened and still had a high leak due to facial hair and was switched to Bi-PAP. PAP initiated at an IPAP of +16 CMH2O and an EPAP of +12 CMH2O up-titrated to an optimal level of: IPAP +19 CMH2O, EPAP +12 CMH20 . Test was started with a nasal mask, but was shortly switch to a medium Miranda [employer] Paykel Simplus full face mask. Mr. Owens did not wake to use the restroom during the night. Mr. Owens stated, I feel like the mask was being blown off my face. I also had right knee pain. The final report will be interpreted and signed by a sleep physician. The completed physician report will then be placed in the patient medical record. Therapy Event: Therapy (cm H20) 4 5 6 7 8 9 10 Total Time at Pressure (min.) 26.5 39.0 40.4 15.1 44.4 49.8 9.2 TST at Pressure (min.) 7.0 25.1 18.4 13.6 43.9 36.8 9.2 # Periods 1 1 1 1 1 1 1 Sleep Onset (min.) 13.0 3.0 0.0 0.0 0.0 0.0 0.0 REM Onset (min.) N/A N/A N/A N/A N/A 39.0 0.0 Sleep Efficiency % 26 64 45 90 98 73 100 Wakefulness (%) 73.6 35.8 54.5 9.9 1.1 26.1 0.0 Wakefulness (min.) 19.5 14.0 22.0 1.5 0.5 13.0 0.0 NREM 1 (%) 18.9 38.4 21.0 17.0 7.7 28.1 0.0 NREM 1 (min.) 5.0 15.0 8.5 2.6 3.4 14.0 0.0 NREM 2 (%) 7.5 25.8 24.5 73.1 91.1 24.1 0.0 NREM 2 (min.) 2.0 10.1 9.9 11.0 40.5 12.0 0.0 NREM 3 (%) 0.0 0.0 0.0 0.0 0.0 0.0 0.0 NREM 3 (min.) 0.0 0.0 0.0 0.0 0.0 0.0 0.0 REM (%) 0.0 0.0 0.0 0.0 0.0 21.6 100.0 REM (min.) 0.0 0.0 0.0 0.0 0.0 10.8 9.2 # Arousals 6 16 9 10 9 8 0 Arousal Index 51.4 38.3 29.3 44.1 12.3 13.1 0.0 # Snore 2 45 22 14 31 9 4 Snore Index 17.1 107.8 71.7 61.8 42.3 14.7 26.0 AHI 17.1 35.9 35.9 52.9 23.2 24.5 45.6 AHI Supine N/A N/A N/A N/A N/A N/A N/A AHI Non-Supine 17.1 35.9 35.9 52.9 23.2 24.5 45.6 NREM AHI 17.1 35.9 35.9 52.9 23.2 20.8 N/A REM AHI N/A N/A N/A N/A N/A 33.5 45.6 RDI 17.1 35.9 35.9 52.9 23.2 24.5 45.6 # Obstructive 0 0 1 0 1 4 0 # Central Ap 0 0 0 0 0 0 0 # Mixed 0 0 0 0 0 0 0 # Hypopneas 2 15 10 12 16 11 7 RERAS 0 0 0 0 0 0 0 Total Respiratory Events 2 15 11 12 17 15 7 Time Below SpO2 89.00% (min.) 0.3 2.9 2.0 1.5 8.5 6.9 7.8 Mean NREM SpO2 (%) 91 91 91 91 90 92 N/A Mean REM SpO2 (%) N/A N/A N/A N/A N/A 87 81 Mean Sleep SpO2 (%) 91 91 91 91 90 90 81 Min NREM SpO2 (%) 88 86 86 86 85 86 N/A Min REM SpO2 (%) N/A N/A N/A N/A N/A 76 74 Position Supine (min.) 0.0 0.0 0.0 0.0 0.0 0.0 0.0 Position Non-supine (min.) 7.0 25.1 18.4 13.6 43.9 36.8 9.2 LM Index Sleep 120.0 158.0 156.5 145.6 103.8 102.8 13.0 LM Index NREM 120.0 158.0 156.5 145.6 103.8 117.7 N/A LM Index REM N/A N/A N/A N/A N/A 66.9 13.0 Mean Heart Rate (bpm) 79 80 79 79 77 78 73 Min Heart Rate (bpm) 45 56 70 68 65 59 61 Therapy (cm H20) 11 12 13 16/12 17/12 18/12 19/12 Total Time at Pressure (min.) 28.1 41.2 49.9 21.0 35.8 29.0 50.1 TST at Pressure (min.) 27.6 40.2 48.4 21.0 20.8 29.0 22.6 # Periods 1 1 1 1 1 1 1 Sleep Onset (min.) 0.0 0.0 0.0 0.0 0.0 0.0 0.0 REM Onset (min.) 0.0 N/A N/A 9.9 0.0 N/A 7.6 Sleep Efficiency % 98 97 97 100 58 100 45 Wakefulness (%) 1.8 2.4 3.0 0.0 41.9 0.0 54.8 Wakefulness (min.) 0.5 1.0 1.5 0.0 15.0 0.0 27.5 NREM 1 (%) 1.8 2.4 10.0 2.4 12.6 1.7 5.0 NREM 1 (min.) 0.5 1.0 5.0 0.5 4.5 0.5 2.5 NREM 2 (%) 21.5 91.5 87.0 44.8 15.0 98.3 13.2 NREM 2 (min.) 6.0 37.7 43.4 9.4 5.4 28.5 6.6 NREM 3 (%) 0.0 3.6 0.0 0.0 0.0 0.0 0.0 NREM 3 (min.) 0.0 1.5 0.0 0.0 0.0 0.0 0.0 REM (%) 74.9 0.0 0.0 52.8 30.5 0.0 26.9 REM (min.) 21.0 0.0 0.0 11.1 10.9 0.0 13.5 # Arousals 0 2 9 3 4 1 3 Arousal Index 0.0 3.0 11.2 8.6 11.6 2.1 8.0 # Snore 3 4 5 2 4 1 3 Snore Index 6.5 6.0 6.2 5.7 11.6 2.1 8.0 AHI 21.8 14.9 12.4 11.4 52.0 14.5 18.6 AHI Supine N/A N/A N/A N/A N/A N/A N/A AHI Non-Supine 21.8 14.9 12.4 11.4 52.0 14.5 18.6 NREM AHI 27.5 14.9 12.4 18.2 85.2 14.5 32.8 REM AHI 20.0 N/A N/A 5.4 22.0 N/A 8.9 RDI 21.8 14.9 12.4 11.4 57.8 14.5 18.6 # Obstructive 1 1 0 0 0 0 0 # Central Ap 0 0 0 0 2 0 0 # Mixed 0 0 0 0 1 0 0 # Hypopneas 9 9 10 4 15 7 7 RERAS 0 0 0 0 2 0 0 Total Respiratory Events 10 10 10 4 20 7 7 Time Below SpO2 89.00% (min.) 11.1 0.5 15.5 13.2 6.0 10.9 0.8 Mean NREM SpO2 (%) 91 93 89 89 92 89 92 Mean REM SpO2 (%) 89 N/A N/A 87 89 N/A 92 Mean Sleep SpO2 (%) 89 93 89 88 90 89 92 Min NREM SpO2 (%) 89 85 86 85 86 85 87 Min REM SpO2 (%) 80 N/A N/A 82 82 N/A 88 Position Supine (min.) 0.0 0.0 0.0 0.0 0.0 0.0 0.0 Position Non-supine (min.) 27.6 40.2 48.4 21.0 20.8 29.0 22.6 LM Index Sleep 15.2 35.8 37.2 31.4 20.2 49.6 29.2 LM Index NREM 27.5 35.8 37.2 24.2 24.3 49.6 26.3 LM Index REM 11.4 N/A N/A 37.8 16.5 N/A 31.1 Mean Heart Rate (bpm) 72 73 73 72 72 72 72 Min Heart Rate (bpm) 59 59 60 52 57 61 58
--- NOTE | 2017-08-11 10:19 | POLYSOMNOGRAPH REPORT ---
CLINICAL DATA: A 57-year-old male with BMI of 68.7, referred by Dr. Gonzales for a CPAP titration study. He had a PSG on 05/04/2017 which showed severe sleep apnea with an AHI of 33.6. SLEEP ARCHITECTURE: Total sleep period was 466.5 minutes. Total sleep time was 363.5 minutes divided between 287 minutes of non-REM sleep and 76.5 minutes of REM sleep. Sleep latency was 13 minutes. REM latency was 191.5 minutes. Sleep efficiency was 76%. Wake after sleep onset was 103 minutes. Sleep consisted of stage N1 17%, stage N2 61% and REM 21%. AROUSAL DATA: 80 arousals were recorded for an index of 13 per hour. 43 were due to PLM events. PERIODIC LIMB MOVEMENT DATA: Significantly elevated limb movements during sleep were noted. There were 416 limb movements during sleep for an index of 68.7 per hour with arousal index of 7.1 per hour. RESPIRATORY DATA: The AHI was 23.9. There were 2 central, 8 obstructive and 1 mixed apneic episode. The longest apneic episode was 22.7 seconds. There were 134 hypopneic episodes with mean duration of 21.3 seconds. OXIMETRY DATA: Nocturnal hypoxemia was seen. Oxygen sid was 74% during REM. Mean saturation was 91%. Time below 88% was 43 minutes. EKG: Heart rates ranged from 45-127 beats per minute. It appears that atrial fibrillation was seen intermittently throughout the night. ENVIRONMENTAL QUALITY ANALYST'S COMMENTS AND TREATMENT SUMMARY: The patient slept upright in the supine position. He started with a nasal mask but then switched to a medium Miranda [employer] Paykel Simplus full facemask. He was started on CPAP and was titrated up to 12 cm water pressure; however, due to facial hair, he had excessive leak and difficulty controlling his sleep apnea. He then was switched to BiPAP and was titrated up to his final pressure setting of 19/12. At his final pressure setting, he slept for 22.6 minutes with an AHI of 18. IMPRESSION: Severe sleep apnea/hypopnea, improved on BiPAP 19/12 with a Miranda & Paykel Simplus full facemask, medium size. However, the patient did have residual apneic episodes with an AHI of 18 even at his final pressure setting. Intermittent atrial fibrillation was seen. RECOMMENDATIONS: The patient could be started on BiPAP at 19/12 with the above-noted interface. Auto-BiPAP could also be considered. Clinical correlation is needed. Cardiology evaluation may be of benefit. MTDD
== END | disposition home or self-care (01) ==
LOC: C.NEUR 20:00
PROVIDERS: ATTEND Internal Medicine
DX: G47.33 Obstructive sleep apnea (adult) (pediatric) (principal)

== ENCOUNTER 2017-10-04 14:22 | Emergency (ER) | payer BC ==
[~2017-10-04] VITALS: Ht 172.7 cm; Wt 177.4 kg
[~2017-10-04 14:22] MED LIST changes: +POTA-639 PO; -POTA20TA16 PO
[2017-10-04 14:25] VITALS: TEMP 36.7; Ht 172.7 cm; Wt 177.4 kg
[2017-10-04] MEDS ORDERED: DILT-115 PO (15:06)
--- NOTE | 2017-10-04 15:29 | DIAGNOSTIC IMAGING REPORT ---
R ANKLE MIN 3 VIEWS ROUTINE CLINICAL HISTORY: right lateral esau pain pain. Trauma. COMPARISON: None. DISCUSSION: Oblique fracture distal fibula. Slight widening of the ankle mortise. Moderate degenerative change of the medial and lateral malleolus. Considerable soft tissue edema. IMPRESSION: 1. Oblique fracture distal fibula. 2. Slight widening ankle mortise. 3. Considerable soft tissue edematous change. The above report was generated using voice recognition software. It may contain grammatical, syntax or spelling errors. Electronically signed by: Derrell Dubose M.D. 10/04/2017 3:28 PM Dictated Date/Time: 10/04/2017 3:27 PM
--- NOTE | 2017-10-04 15:34 | DIAGNOSTIC IMAGING REPORT ---
R KNEE 2 VIEWS ROUTINE CLINICAL HISTORY: Right knee pain status post trauma COMPARISON: None. DISCUSSION: The bones are osteopenic. There are advanced osteoarthritic changes. There is marked narrowing of the medial joint compartment. There are dorsal patellar spurs. There is lateral patellar fragmentation which is felt to be chronic. IMPRESSION: 1. Advanced osteoarthritic change 2. No acute fractures Electronically signed by: Reagan Colon M.D. 10/04/2017 3:33 PM Dictated Date/Time: 10/04/2017 3:32 PM
[2017-10-04] MEDS ORDERED: OXYCODONE HCL IR 5 MG TAB (IMMEDIATE RELEASE) PO STA (15:43)
--- NOTE | 2017-10-04 16:42 | EMERGENCY ROOM VISIT NOTE ---
ED Visit Note First contact with patient: 14:28 CHIEF COMPLAINT: right ankle pain HISTORY OF PRESENT ILLNESS: This 57-year-old male patient presents to the emergency department, ambulatory, 2 days after sustaining an injury to the right ankle and foot with a twisting, inversion motion while attempting to get into a vehicle. He states he was stepping down off of a curb to get into a taxi , but did not fall. The patient complains of pain along the outside of the ankle. The patient denies any pain of the foot. He does report pain up in the lateral right knee as well, and states this is improving. The patient rates the pain as sharp and 8/10. The patient is able to bear weight on the foot. Constant pain, worse with movement, weight bearing, and the dependent position. No knee pain, the patient is able to move their toes. No numbness or weakness of the foot, no laceration. The patient has not had a previous fracture to this ankle. The patient has taken nothing for the pain. He has been using ice and elevation without relief of his symptoms. The patient denies any other injury. REVIEW OF SYSTEMS: A 6 system review of systems was completed with positives and pertinent negatives listed in the HPI. ALLERGIES: None MEDICATIONS: Lasix, Klor-Con, Lexapro, Synthroid, amiodarone, metoprolol, magnesium, diltiazem, warfarin PMH: Arthritis, atrial fibrillation, hypothyroidism, GERD, gastric bypass SOCIAL HISTORY: The patient lives locally with family. He denies drug, alcohol , tobacco use. PHYSICAL EXAM: Vital Signs: Reviewed Nurse's notes, vital signs stable. GENERAL : This is a 57-year-old obese white male, no acute distress, but appears in pain , well-developed, well-nourished. MENTAL STATUS: Alert, oriented to person place and time, and cooperative. MUSCULOSKELETAL: Examination is difficult due to the patient's size. The right ankle is swollen and tender over the lateral malleolus, but the skin is intact and there is no ligamentous instability. There is no fifth metatarsal tenderness. There is no tenderness over the rest of the foot. There is no calf or tibia/fibular tenderness. There is no visual deformity. The foot and toes are warm and well-perfused. There is discomfort on palpation of the lateral right knee. There is no laxity with varus or valgus force. Annie's is negative. Yazmin's, anterior drawer sign, and posterior drawer sign are negative. Dorsalis pedis pulse 2+. Sensation to pain and light touch is intact. Capillary refill less than 2 seconds. RADIOLOGY: R KNEE 2 VIEWS ROUTINE CLINICAL HISTORY: Right knee pain status post trauma COMPARISON: None. DISCUSSION: The bones are osteopenic. There are advanced osteoarthritic changes. There is marked narrowing of the medial joint compartment. There are dorsal patellar spurs. There is lateral patellar fragmentation which is felt to be chronic. IMPRESSION: 1. Advanced osteoarthritic change 2. No acute fractures Electronically signed by: Reagan Colon M.D. 10/04/2017 3:33 PM Dictated Date/Time: 10/04/2017 3:32 PM R ANKLE MIN 3 VIEWS ROUTINE CLINICAL HISTORY: right lateral esau pain pain. Trauma. COMPARISON: None. DISCUSSION: Oblique fracture distal fibula. Slight widening of the ankle mortise. Moderate degenerative change of the medial and lateral malleolus. Considerable soft tissue edema. IMPRESSION: 1. Oblique fracture distal fibula. 2. Slight widening ankle mortise. 3. Considerable soft tissue edematous change. The above report was generated using voice recognition software. It may contain grammatical, syntax or spelling errors. Electronically signed by: Derrell Dubose M.D. 10/04/2017 3:28 PM Dictated Date/Time: 10/04/2017 3:27 PM EMERGENCY DEPARTMENT COURSE: I examined the patient. He initially declined analgesia. X-rays of the right foot and knee were reviewed by myself and read by radiology and reveal oblique fracture of the distal fibula with slight widening of the ankle mortise. The patient did request analgesics at this time. He was given 5 mg oxycodone p.o. An Ortho-Glass posterior leg with a stirrup splint was applied to the ankle under my direction and the position was satisfactory. Neurovascular status was rechecked and intact. The patient was instructed on the use of a walker to avoid weightbearing. The patient did request his INR be checked due to the bruising in the ankle. This was checked and was 1.2. I discussed this with the patient. He states his goal is between 2 and 3. He was encouraged to contact his prescriber to discuss dosage changes. Discharge instructions reviewed. The patient was discharged home in good condition. PDMP reviewed with no suspicious findings noted. I attest that I have personally reviewed the patient's current medication list. Patient was found to have normal blood pressure on screening and does not require follow-up. Etiologies such as soft tissue injury, fracture, dislocation, neurovascular compromise, compartment syndrome, as well as others were entertained. DIAGNOSIS: Right distal fibula fracture The chart was completed utilizing [employer] voice recognition software. Grammatical errors, random word insertions, pronoun errors, and incomplete sentences are an occasional consequence of this system due to software limitations, ambient noise, and hardware issues. Any formal questions or concerns about the content, text, or information contained within the body of this dictation should be directly addressed to the provider for clarification. Problem List Medical Problems: (1) Coronary artery disease Permanent Comment: moderate disease per cardiac cath [facility] 2013; 50% LAD , 40% RCA Status: Chronic (2) Depression Status: Chronic (3) Diabetes mellitus type 2, controlled Status: Chronic (4) History of colonic polyps Status: Chronic (5) History of urinary calculi Permanent Comment: right ureteral stone 2016 Status: Chronic (6) Hypertension Status: Chronic (7) Hypothyroidism Status: Chronic (8) Insomnia Status: Chronic (9) Iron deficiency anemia Permanent Comment: heme + stool 2016, subsequent EGD and colonoscopy neg except for polyp Status: Chronic (10) Paroxysmal atrial fibrillation Status: Chronic (11) Ventricular septal defect Status: Chronic (12) Vitamin B12 deficiency Status: Chronic Surgical Problems: (1) Status post cardiac catheterization Permanent Comment: 2013, 50% LAD, 40% RCA Status: Chronic (2) Status post cystoscopy Permanent Comment: with right ureteroscopy, laser lithotripsy, basket stone extraction Status: Chronic (3) Status post gastric bypass for obesity Status: Chronic Current/Historical Medications Scheduled Amiodarone Hcl (Cordarone), 200 MG PO BID Diltiazem Hcl Ext Rel (Tiazac), 240 MG PO DAILY Escitalopram (Lexapro), 10 MG PO QAM Furosemide (Lasix), 40 MG PO QAM Levothyroxine Sodium (Levothyroxine Sodium), 50 MCG PO DAILY Magnesium Oxide (Mag-Ox), 400 MG PO BID Metoprolol Succ (Toprol Xl) (Toprol-Xl ), 100 MG PO BID Pantoprazole (Protonix), 40 MG PO DAILY Potassium Ext Rel (Klor-Con), 20 MEQ PO QPM Trazodone Hcl (Trazodone), 50 MG PO HS Warfarin Sod (Jantoven), 5 MG PO DAILY Scheduled PRN Oxycodone Ir (Roxicodone Ir), 1-2 TAB PO Q4H PRN for Pain Allergies Coded Allergies: No Known Allergies (Unverified , `, 07/17/17) Vital Signs Date Time Temp Pulse Resp B/P (MAP) Pulse Ox O2 Delivery O2 Flow Rate FiO2 10/04/17 17:31 80 20 122/77 96 10/04/17 16:08 85 18 137/91 96 Room Air 10/04/17 14:25 36.7 108 20 160/88 98 Room Air Laboratory Results Test 10/04/17 16:36 Prothrombin Time 12.7 SECONDS (9.0-12.0) Prothromb Time International Ratio 1.2 (0.9-1.1) Medications Administered Medications (Trade) Dose Ordered Sig/Efrain Route Start Time Stop Time Status Last Admin Dose Admin Oxycodone HCl (Roxicodone Immediate Rel Tab) 5 mg NOW STAT PO 10/04/17 15:43 10/04/17 15:44 DC 10/04/17 16:08 5 MG Departure Information Impression Primary Impression: Fracture of distal end of right fibula Additional Impression: Right knee pain Dispostion Home / Self-Care Condition GOOD Prescriptions Oxycodone Ir (Roxicodone Ir) 5 Mg Tab 1-2 TAB PO Q4H Y for Pain, #15 TAB For Initial Treatment Prov: Judi Arroyo PA-C 10/04/17 Referrals Sandi Roman M.D. (PCP) Patient Instructions ED Fx Ankle Lateral Malleolus, My [facility] Additional Instructions You were seen in the ED today for a distal fibula fracture. DO NOT drive, drink alcohol, operate machinery, or perform dangerous activities today. You were given medications in the ER that can affect your ability to safely function or operate a vehicle. Oxycodone (OxyIR) 5mg: Take 1-2 pills every four hours as needed for breakthrough pain. Avoid alcohol, operating machinery or dangerous equipment, working on ladders or roofs, DRIVING, or situations where being under the influence may be dangerous. It is recommended to use an vdfi-tnh-ibslohh stool softener such as Colace, 100mg twice daily while taking this medication to avoid constipation. Ibuprofen(Motrin, Advil) may be used for fever or pain. Use 600mg every six hours as needed. Take with food. Avoid using more than 2400mg in a 24 hour period. Do not use 2400mg per day for more than three consecutive days without physician direction. Prolonged inappropriate use can lead to stomach upset or ulcers. (AND/OR) Acetaminophen(Tylenol) may be used for fever or pain. Use 1000mg every six hours as needed. Avoid using more than 3000mg in a 24 hour period. Ice compresses for 20 minutes at a time four times daily for 2-3 days. Use the crutches/walker as instructed to keep ALL weight off of the foot. Rest and elevate your injury. Do not get the splint wet. If your splint feels excessively tight, you have worsening pain, develop numbness or tingling, or your digits appear blue, loosen the suni wrap. Then reapply the suni wrap gently without removing the splint. If your symptoms are not quickly relieved return to the ER for re- evaluation. Return to the ER immediately for any numbness, tingling, severe pain, extreme swelling in the extremity or as needed. Call [facility], [phone], tomorrow to arrange follow up for your injury. Follow-up with your primary care physician in 2 to 3 days for a recheck of your current condition. INR was 1.2. Please speak with your PCP or whoever is managing your coumadin regarding increasing your dose. Problem Qualifiers Primary Impression: Fracture of distal end of right fibula Encounter type: initial encounter Fracture type: closed Fracture morphology : unspecified fracture morphology Qualified Codes: S82.831A - Other fracture of upper and lower end of right fibula, initial encounter for closed fracture Additional Impression: Right knee pain Chronicity: acute Qualified Codes: M25.561 - Pain in right knee
[2017-10-04] MEDS ORDERED: OXYC1TAB3 PO (16:50)
[2017-10-04 17:08] LABS: INR 1.2 (0.9-1.1)
[2017-10-04 17:31] VITALS: BP 122/77; PULSE 80; O2SAT 96
== END 2017-10-04 17:56 | disposition home or self-care (01) ==
LOC: C.EDB 14:23 → C.EDD 17:56
DX: S82.831A Other fracture of upper and lower end of right fibula, initial encounter for closed fracture (principal); M25.561 Pain in right knee; X50.1XXA Overexertion from prolonged static or awkward postures, initial encounter; Y92.89 Other specified places as the place of occurrence of the external cause; E03.9 Hypothyroidism, unspecified; K21.9 Gastro-esophageal reflux disease without esophagitis; I48.91 Unspecified atrial fibrillation; M19.90 Unspecified osteoarthritis, unspecified site; Z79.01 Long term (current) use of anticoagulants; Z79.899 Other long term (current) drug therapy

== ENCOUNTER → 2017-10-19 | Outpatient (CLI) | payer BC ==
[~2017-10-19] MED LIST changes: +DILT-115 PO; -DILT120C68 PO; -FURO40TA3 PO; +OXYC1TAB3 PO; -TRAM-10 PO
== END | disposition home or self-care (01) ==
LOC: C.RDSM 12:50
PROVIDERS: ATTEND Orthopaedic Surgery
DX: T14.8XXA Other injury of unspecified body region, initial encounter (principal); X58.XXXA Exposure to other specified factors, initial encounter

== ENCOUNTER → 2017-11-01 | Outpatient (CLI) | payer BC ==
[2017-11-01 13:04] LABS: HEMATOCRIT 41.9 % (42-52); HEMOGLOBIN 13.3 g/dL (14.0-18.0); MEAN CELL VOLUME 81.4 fL (80-100); MEAN CORPUSCULAR HEMOGLOBIN 25.8 pg (25-34); MEAN CORPUSCULAR HGB CONC 31.7 g/dl (32-36); MEAN PLATELET VOLUME 8.4 fL (7.4-10.4); PLATELET COUNT 196 K/uL (130-400); RED CELL DISTRIBUTION WIDTH CV 19.9 % (11.5-14.5); RED CELL DISTRIBUTION WIDTH SD 59.5 fL (36.4-46.3); WHITE BLOOD COUNT 7.09 K/uL (4.8-10.8)
[2017-11-01 13:16] LABS: INR 1.2 (0.9-1.1)
[2017-11-01 13:47] LABS: ALBUMIN 3.6 gm/dl (3.4-5.0); ALKALINE PHOSPHATASE 93 U/L (45-117); ALT/SGPT 30 U/L (12-78); AST/SGOT 30 U/L (15-37); BLOOD UREA NITROGEN 14 mg/dl (7-18); CALCIUM 8.6 mg/dl (8.5-10.1); CARBON DIOXIDE 32 mmol/L (21-32); CHOLESTEROL 130 mg/dl (0-200); CREATININE 1.26 mg/dl (0.60-1.40); GLUCOSE 77 mg/dl (70-99); LDL CHOLESTEROL CALCULATED 63 mg/dl; POTASSIUM 4.4 mmol/L (3.5-5.1); SODIUM 139 mmol/L (136-145); TOTAL PROTEIN 7.3 gm/dl (6.4-8.2)
== END | disposition home or self-care (01) ==
LOC: C.LABPBG 08:31
PROVIDERS: ATTEND Internal Medicine
DX: D50.0 Iron deficiency anemia secondary to blood loss (chronic) (principal); E66.01 Morbid (severe) obesity due to excess calories; I10 Essential (primary) hypertension; E83.42 Hypomagnesemia; I48.2 Chronic atrial fibrillation; E03.9 Hypothyroidism, unspecified; E55.9 Vitamin D deficiency, unspecified; Z12.5 Encounter for screening for malignant neoplasm of prostate; Z13.220 Encounter for screening for lipoid disorders; R60.0 Localized edema; R42 Dizziness and giddiness

== ENCOUNTER 2020-04-28 10:57 | Inpatient (IN) ==
--- NOTE | 2020-04-28 11:57 | XRay Report ---
XR chest 1V portable HISTORY: 60 years-old Male SEPSIS COMPARISON: Chest radiograph 07/17/2017 TECHNIQUE: Portable AP view of the chest FINDINGS: Cardiac silhouette is enlarged, unchanged. Pulmonary vascular congestion. Trace pleural effusions wit h minimal fluid layering along the minor fissure. No pneumothorax or airspace consolidation typical f or pneumonia. Minimal left basilar opacities favor atelectasis. Bones appear grossly intact. Degenera tive changes of the shoulders and spine. Unchanged moderate hemidiaphragmatic elevation. IMPRESSION: 1. Cardiomegaly with pulmonary vascular congestion. 2. Trace pleural effusions with minimal fluid layering along the minor fissure. 3. Left basilar densities suggest probable atelectasis. ACT 112: Negative or not required by law. The above report was generated using voice recognition software. It may contain grammatical, syntax o r spelling errors. Electronically signed by: Jones Andrade M.D. 04/28/2020 11:56 AM
--- NOTE | 2020-04-28 12:04 | Emergency Department Note ---
Impression & Plan Pneumonia due to COVID-19 virus, Hypoxia, Paroxysmal atrial fibrillation, Atypical chest pain ED Provider Note NAME: OMA OWENS AGE: 60 SEX: M ARRIVES VIA: Walk-In INFORMANT: Patient, ED PROVIDER(S): Jose Eldridge MD CHIEF COMPLAINT: Shortness of breath, body aches, loss of taste and smell PLAN: Disposition: Admit MEDICAL DECISION MAKING: The patient is a pleasant 60-year-old gentleman with a past medical history of PHYLLIS on CPAP, diabetes, CAD, paroxysmal atrial fibrillation on Xarelto, who presents emergency department with worsening shortness of breath, chest pain, headaches, body aches loss of taste and smell that evolved since Wednesday. The patient denies any known COVID-19 exposures and reports he essentially stays home and does not have any visitors. Denies any objective fevers but has felt feverish with body aches. He denies nausea vomiting, diarrhea, urinary symptoms. He reports he is not on oxygen at home and was told he could use his CPAP at night as needed. He denies any obvious fluid retention/weight gain. On arrival the patient is mildly dyspneic appearing, in no acute distress, 88% on room air, afebrile with vital signs otherwise stable. EKG with Afib without evidence of acute ischemia. Chest x-ray with cardiomegaly and vascular congestion. There are trace pleural effusion with some layering along the minor fissure in addition to left basilar densities. WBC, 3.5, nonspecific. H/H 12.9/41 similar to prior. Platelets wnl. Chemistry without acidosis. Lactic acid wnl. VBG unremarkable. LFTs and electrolytes unremarkable. Troponin negative/undetectable. BNP wnl. Procalcitonin < 0.05. UA with epitheleal cells and patient denies urinary sx. Respiratory Bio-Fire was positive for Covid 19. Patient was updated on results and is agreeable with admission. Given hypoxia, ordered for Dexamethasone. Case was discussed with Dr. Kumari, [facility] hospitalist, who will evaluate the patient for admission. Triage Nursing notes reviewed and agree them. Prior medical records reviewed Vital Signs: reviewed and remarkable for hypoxia. Differential diagnosis: Reactive airway disease, pneumonia, pneumothorax, COPD, CHF, infections, cardiac ischemia, pulmonary embolism, musculoskeletal, gastrointestinal, as well as other pathologies. ER treatment provided: See below. Diagnostics interpreted by me: ECG: Atrial fibrillation, 89 bpm, PVCs, RBBB, no overt ST elevation or depression, 07/17/2017. Cardiac Monitoring: An order for continuous cardiac monitoring was placed and demonstrated Atrial fibrillation, 89 bpm, PVCs. Laboratory studies: See below Imaging studies: XR chest 1V portable HISTORY: 60 years-old Male SEPSIS COMPARISON: Chest radiograph 07/17/2017 TECHNIQUE: Portable AP view of the chest FINDINGS: Cardiac silhouette is enlarged, unchanged. Pulmonary vascular congestion. Trace pleural effusions with minimal fluid layering along the minor fissure. No pneumothorax or airspace consolidation typical for pneumonia. Minimal left basilar opacities favor atelectasis. Bones appear grossly intact. Degenerative changes of the shoulders and spine. Unchanged moderate hemidiaphragmatic elevation. IMPRESSION: 1. Cardiomegaly with pulmonary vascular congestion. 2. Trace pleural effusions with minimal fluid layering along the minor fissure. 3. Left basilar densities suggest probable atelectasis. Consultations: Case was discussed with Dr. Kumari, [facility] hospitalist, who will evaluate the patient for admission. HPI: The patient is a pleasant 60-year-old gentleman with a past medical history of PHYLLIS on CPAP, diabetes, CAD, paroxysmal atrial fibrillation on Xarelto, who presents emergency department with worsening shortness of breath, chest pain, headaches body aches loss of taste and smell that evolved since Wednesday. The patient denies any known COVID-19 exposures and reports he essentially stays home and does not have any visitors. Denies any objective fevers but has felt feverish with body aches. He denies nausea vomiting, diarrhea, urinary symptoms. He reports he is not on oxygen at home and was told he could use his CPAP at night as needed. He denies any obvious fluid retention/weight gain. ROS: See above HPI for pertinent positives & negatives. A total of 10 systems reviewed and were otherwise negative. PAST MEDICAL HISTORY:See Below PAST SURGICAL HISTORY:See Below FAMILY HISTORY:See Below SOCIAL HISTORY:See Below HOME MEDICATIONS:See Below ALLERGIES:See Below VITALS:See Below PHYSICAL EXAMINATION: GENERAL: Awake, alert, dyspneic-appearing, in no distress, BMI 69.1 HENT: Normocephalic, atraumatic. Oropharynx with dry mucous membranes and otherwise unremarkable. EYES: Normal conjunctiva. Sclera non-icteric. EOMI. No nystamgus. PEARRL. NECK: Supple. No nuchal rigidity. FROM. No JVD. RESPIRATORY: Diminished breath sounds at the bases. CARDIAC: Regular rate, normal rhythm. Extremities warm and well perfused. Pulses equal. ABDOMEN: Soft, non-distended. No tenderness to palpation. No rebound or guarding. No masses. RECTAL: Deferred. MUSCULOSKELETAL: Chest examination reveals no tenderness. The back is symmetrical on inspection without obvious abnormality. There is no CVA tenderness to palpation. No joint edema. LOWER EXTREMITIES: Calves are equal size bilaterally and non-tender. 1+ BLE edema. No discoloration. NEURO: Normal sensorium. No sensory or motor deficits noted. Moving all extremities equally. SKIN: No rash or jaundice noted. Jose Eldridge MD Past Med/Surg History Medical History Chronic anticoagulation Coronary artery disease "moderate disease per cardiac cath [facility] 2013; 50% LAD, 40% RCA" Depression Diabetes mellitus type 2, controlled History of colonic polyps History of urinary calculi "right ureteral stone 2015" Hx of sciatica Hypertension Hypothyroidism Insomnia Iron deficiency anemia "heme + stool 2015, subsequent EGD and colonoscopy neg except for polyp" Lumbar disc herniation Lumbar radiculopathy Morbid obesity Paroxysmal atrial fibrillation Ventricular septal defect Vitamin B12 deficiency Surgical History Status post cardiac catheterization "[place] 2013, 50% LAD, 40% RCA" Status post cystoscopy "with right ureteroscopy, laser lithotripsy, basket stone extraction" Status post gastric bypass for obesity Social History Smoking Status: Former smoker Hx Alcohol Use: No Hx Substance Use: No Preferred Language: Mexican Communication Ability: Effective Hearing Ability: Normal Immigration Officer Required: No Beliefs That Will Affect Care: None marital status: single Current Living Situation: Alone Other Information That Helps Us Care for You: No Feels Safe at Home: Yes Safety Concerns: Feels Safe At This Time Assistive Devices: Contacts Assistive Devices Comment: CPAP sometimes at home Allergies Allergies Allergy/AdvReac Type Severity Reaction Status Date / Time No Known Allergies Allergy ` Verified 04/28/20 14:04 Home Meds Home Medications Medication Instructions Recorded Confirmed diclofenac sodium 2 g TOPICAL QID 11/24/18 04/28/20 diltiazem HCl 240 mg PO QAM 11/24/18 04/28/20 ergocalciferol (vitamin D2) 50,000 unit PO WK 11/24/18 04/28/20 [Vitamin D2] escitalopram oxalate 20 mg PO QAM 11/24/18 04/28/20 magnesium oxide 400 mg PO BID 11/24/18 04/28/20 meloxicam 15 mg PO QAM 11/24/18 04/28/20 metoprolol succinate 100 mg PO BID 11/24/18 04/28/20 pantoprazole 40 mg PO DAILY PRN 11/24/18 04/28/20 rivaroxaban [Xarelto] 20 mg PO PM 11/24/18 04/28/20 trazodone 150 mg PO QPM 11/24/18 04/28/20 ferrous sulfate [iron] 325 mg PO QAM 11/28/18 04/28/20 ibuprofen [Advil] 200 mg PO Q6H PRN 11/28/18 04/28/20 levothyroxine 88 mcg PO QAM 07/02/19 04/28/20 furosemide 40 mg tablet 40 mg PO QAM 08/01/19 04/28/20 gabapentin 300 mg capsule 300 mg PO TID 08/01/19 04/28/20 potassium chloride 20 mEq oral 20 meq PO HS 08/01/19 04/28/20 packet naproxen sodium [Aleve] 220 mg PO Q12H PRN 04/28/20 04/28/20 Results & Data (ED) Vital Signs Vital Signs - 24 hr 04/28/20 11:05 04/28/20 11:12 04/28/20 11:27 Temperature 37.2 C Temperature Source Oral Pulse Rate 83 82 Pulse Rate from SpO2 Sensor 81 Pulse Rhythm Regular Pulse Strength Normal Respiratory Rate 18 22 Respiratory Effort / Characteristics Non-Labored Spontaneous Spontaneous Respiratory Depth Normal Respiratory Pattern Regular Blood Pressure 127/83 127/83 Blood Pressure Mean 95 97 Pulse Oximetry 92 88 L 93 Oxygen Delivery Method Room Air Nasal Cannula Oxygen Flow Rate 2 Sepsis Recent Fever Within 48 Hours No Sepsis New/Unexplained Change in Mental Status N/A Sepsis Action Taken by Nursing No Action Required 04/28/20 11:30 04/28/20 11:37 04/28/20 11:45 Temperature Temperature Source Pulse Rate 85 Pulse Rate from SpO2 Sensor 83 98 H 86 Pulse Rhythm Pulse Strength Respiratory Rate 16 Respiratory Effort / Characteristics Respiratory Depth Respiratory Pattern Blood Pressure 99/76 L 99/76 L Blood Pressure Mean 77 77 Pulse Oximetry 91 91 90 Oxygen Delivery Method Oxygen Flow Rate Sepsis Recent Fever Within 48 Hours Sepsis New/Unexplained Change in Mental Status Sepsis Action Taken by Nursing 04/28/20 12:00 04/28/20 12:20 04/28/20 12:30 Temperature Temperature Source Pulse Rate 79 78 Pulse Rate from SpO2 Sensor 85 77 Pulse Rhythm Pulse Strength Respiratory Rate 21 Respiratory Effort / Characteristics Respiratory Depth Respiratory Pattern Blood Pressure 126/79 Blood Pressure Mean 96 Pulse Oximetry 91 87 L 94 Oxygen Delivery Method Room Air Oxygen Flow Rate 2 Sepsis Recent Fever Within 48 Hours Sepsis New/Unexplained Change in Mental Status Sepsis Action Taken by Nursing 04/28/20 12:31 04/28/20 13:28 Temperature Temperature Source Pulse Rate 72 Pulse Rate from SpO2 Sensor 73 76 Pulse Rhythm Pulse Strength Respiratory Rate 24 Respiratory Effort / Characteristics Respiratory Depth Respiratory Pattern Blood Pressure 114/67 Blood Pressure Mean 77 Pulse Oximetry 94 94 Oxygen Delivery Method Nasal Cannula Oxygen Flow Rate 2 Sepsis Recent Fever Within 48 Hours Sepsis New/Unexplained Change in Mental Status Sepsis Action Taken by Nursing Laboratory Data Attestation: I reviewed the patient's lab results. Result diagrams: 04/28/20 12:25 04/28/20 12:25 Lab Results 04/28/20 04/28/20 04/28/20 Range/Units 12:12 12:25 12:25 WBC 3.51 L (4.8-10.8) K/uL RBC 5.36 (4.7-6.1) M/uL Hgb 12.9 L (14.0-18.0) g/dL Hct 41.0 L (42-52) % MCV 76.5 L (80-100) fL MCH 24.1 L (25-34) pg MCHC 31.5 L (32-36) g/dL RDW Std Deviation 46.2 (36.4-46.3) fL RDW Coeff of Phu 16.6 H (11.5-14.5) % Plt Count 130 (130-400) K/uL MPV 9.5 (7.4-10.4) fL Immature Gran % (Auto) 0.3 % Neut % (Auto) 70.9 % Lymph % (Auto) 20.8 % [place] % (Auto) 7.1 % Eos % (Auto) 0.6 % Baso % (Auto) 0.3 % Neut # (Auto) 2.49 (1.4-6.5) K/uL Lymph # (Auto) 0.73 L (1.2-3.4) K/uL [place] # (Auto) 0.25 (0.11-0.59) K/uL Eos # (Auto) 0.02 (0-0.5) K/uL Baso # (Auto) 0.01 (0-0.2) K/uL Immature Gran # (Auto) 0.01 (0.00-0.02) K/uL PT (9.0-12.0) Seconds INR (0.9-1.1) APTT (21.0-31.0) Seconds PTT Ratio D-Dimer (0-500) ug/L FEU VBG pH (7.36-7.41) VBG pCO2 (38-50) mmHg VBG pO2 mmHg VBG HCO3 mmol/L VBG O2 Saturation % VBG Base Excess mEq/L Barometric Pressure mm/Hg Sodium (136-145) mmol/L Potassium (3.5-5.1) mmol/L Chloride (98-107) mmol/L Carbon Dioxide (21-32) mmol/L Anion Gap (3-11) BUN (7-18) mg/dl Creatinine (0.6-1.4) mg/dl Est Cr Clr Drug Dosing ml/min Est GFR ( Amer) Est GFR (Non-Af Amer) BUN/Creatinine Ratio (10-20) Glucose (70-99) mg/dl Lactate (0.4-2.0) mmol/L Calcium (8.5-10.1) mg/dl Phosphorus (2.5-4.9) mg/dl Magnesium (1.8-2.4) mg/dl Total Bilirubin (0.2-1) mg/dl Direct Bilirubin (0-0.2) mg/dl AST (15-37) U/L ALT (12-78) U/L Alkaline Phosphatase (45-117) U/L Troponin I (0-0.045) ng/ml NT-Pro-B Natriuret Pep (0-900) pg/ml Total Protein (6.4-8.2) gm/dl Albumin (3.4-5.0) gm/dl Globulin (2.5-4.0) gm/dl Albumin/Globulin Ratio (0.9-2) Procalcitonin < 0.05 (0-0.5) ng/ml TSH (0.300-4.500) uIu/ml Urine Color Urine Appearance (Clear) Urine pH (4.5-7.5) Ur Specific [place] (1.000-1.030) Urine Protein (Negative) Urine Glucose (UA) (Negative) Urine Ketones (Negative) Urine Blood (Negative) Urine Nitrite (Negative) Urine Bilirubin (Negative) Urine Urobilinogen (Negative) Ur Leukocyte Esterase (Negative) Urine WBC (Auto) (0-5) /hpf Urine RBC (Auto) (0-4) /hpf U Hyaline Cast (Auto) (0-5) /lpf U Epithel Cells (Auto) (0-5) /lpf Urine Bacteria (Auto) (Negative) Ur Renal Epithelial Cell Urine Mucus (None Prsent) Adenovirus (PCR) Not Detected (NotDetected) B. pertussis DNA (PCR) Not Detected (NotDetected) B.parapertussis DNA PCR Not Detected (NotDetected) C. pneumoniae DNA (PCR) Not Detected (NotDetected) Coronavirus OC43 (PCR) Not Detected (NotDetected) Coronavirus HKU1 (PCR) Not Detected (NotDetected) Coronavirus 229E (PCR) Not Detected (NotDetected) COVID-19 PCR DETECTED A* (NotDetected) Coronavirus NL63 (PCR) Not Detected (NotDetected) Human Metapneumovir PCR Not Detected (NotDetected) Influenza Type A (PCR) Not Detected (NotDetected) Influenza Type B (PCR) Not Detected (NotDetected) M. pneumoniae (PCR) Not Detected (NotDetected) Parainfluenza 1 (PCR) Not Detected (NotDetected) Parainfluenza 2 (PCR) Not Detected (NotDetected) Parainfluenza 3 (PCR) Not Detected (NotDetected) Parainfluenza 4 (PCR) Not Detected (NotDetected) RSV (PCR) Not Detected (NotDetected) Entero/Rhino (PCR) Not Detected (NotDetected) 04/28/20 04/28/20 04/28/20 Range/Units 12:25 12:25 12:25 WBC (4.8-10.8) K/uL RBC (4.7-6.1) M/uL Hgb (14.0-18.0) g/dL Hct (42-52) % MCV (80-100) fL MCH (25-34) pg MCHC (32-36) g/dL RDW Std Deviation (36.4-46.3) fL RDW Coeff of Phu (11.5-14.5) % Plt Count (130-400) K/uL MPV (7.4-10.4) fL Immature Gran % (Auto) % Neut % (Auto) % Lymph % (Auto) % [place]ole % (Auto) % Eos % (Auto) % Baso % (Auto) % Neut # (Auto) (1.4-6.5) K/uL Lymph # (Auto) (1.2-3.4) K/uL [place] # (Auto) (0.11-0.59) K/uL Eos # (Auto) (0-0.5) K/uL Baso # (Auto) (0-0.2) K/uL Immature Gran # (Auto) (0.00-0.02) K/uL PT 12.4 H (9.0-12.0) Seconds INR 1.2 H (0.9-1.1) APTT 43.6 H (21.0-31.0) Seconds PTT Ratio 1.6 D-Dimer (0-500) ug/L FEU VBG pH (7.36-7.41) VBG pCO2 (38-50) mmHg VBG pO2 mmHg VBG HCO3 mmol/L VBG O2 Saturation % VBG Base Excess mEq/L Barometric Pressure mm/Hg Sodium 138 (136-145) mmol/L Potassium 4.0 (3.5-5.1) mmol/L Chloride 104 (98-107) mmol/L Carbon Dioxide 30 (21-32) mmol/L Anion Gap 4.0 (3-11) BUN 12 (7-18) mg/dl Creatinine 1.03 (0.6-1.4) mg/dl Est Cr Clr Drug Dosing 133.2 ml/min Est GFR ( Amer) 91.1 Est GFR (Non-Af Amer) 78.6 BUN/Creatinine Ratio 11.8 (10-20) Glucose 102 H (70-99) mg/dl Lactate (0.4-2.0) mmol/L Calcium 8.4 L (8.5-10.1) mg/dl Phosphorus 2.5 (2.5-4.9) mg/dl Magnesium 2.0 (1.8-2.4) mg/dl Total Bilirubin 0.7 (0.2-1) mg/dl Direct Bilirubin 0.2 (0-0.2) mg/dl AST 21 (15-37) U/L ALT 16 (12-78) U/L Alkaline Phosphatase 101 (45-117) U/L Troponin I < 0.015 (0-0.045) ng/ml NT-Pro-B Natriuret Pep 712 (0-900) pg/ml Total Protein 7.5 (6.4-8.2) gm/dl Albumin 3.5 (3.4-5.0) gm/dl Globulin 4.0 (2.5-4.0) gm/dl Albumin/Globulin Ratio 0.9 (0.9-2) Procalcitonin (0-0.5) ng/ml TSH 3.660 (0.300-4.500) uIu/ml Urine Color Dark Yellow Urine Appearance Clear (Clear) Urine pH 5.5 (4.5-7.5) Ur Specific [place] 1.032 H (1.000-1.030) Urine Protein 2+ H (Negative) Urine Glucose (UA) Negative (Negative) Urine Ketones Trace H (Negative) Urine Blood Negative (Negative) Urine Nitrite Positive A (Negative) Urine Bilirubin Negative (Negative) Urine Urobilinogen Positive H (Negative) Ur Leukocyte Esterase Trace H (Negative) Urine WBC (Auto) 5-10 H (0-5) /hpf Urine RBC (Auto) 0-4 (0-4) /hpf U Hyaline Cast (Auto) 0 (0-5) /lpf U Epithel Cells (Auto) >30 H (0-5) /lpf Urine Bacteria (Auto) 1+ H (Negative) Ur Renal Epithelial Cell Not Reportable Urine Mucus Present A (None Prsent) Adenovirus (PCR) (NotDetected) B. pertussis DNA (PCR) (NotDetected) B.parapertussis DNA PCR (NotDetected) C. pneumoniae DNA (PCR) (NotDetected) Coronavirus OC43 (PCR) (NotDetected) Coronavirus HKU1 (PCR) (NotDetected) Coronavirus 229E (PCR) (NotDetected) COVID-19 PCR (NotDetected) Coronavirus NL63 (PCR) (NotDetected) Human Metapneumovir PCR (NotDetected) Influenza Type A (PCR) (NotDetected) Influenza Type B (PCR) (NotDetected) M. pneumoniae (PCR) (NotDetected) Parainfluenza 1 (PCR) (NotDetected) Parainfluenza 2 (PCR) (NotDetected) Parainfluenza 3 (PCR) (NotDetected) Parainfluenza 4 (PCR) (NotDetected) RSV (PCR) (NotDetected) Entero/Rhino (PCR) (NotDetected) 04/28/20 04/28/20 04/28/20 Range/Units 12:25 13:00 13:00 WBC (4.8-10.8) K/uL RBC (4.7-6.1) M/uL Hgb (14.0-18.0) g/dL Hct (42-52) % MCV (80-100) fL MCH (25-34) pg MCHC (32-36) g/dL RDW Std Deviation (36.4-46.3) fL RDW Coeff of Phu (11.5-14.5) % Plt Count (130-400) K/uL MPV (7.4-10.4) fL Immature Gran % (Auto) % Neut % (Auto) % Lymph % (Auto) % [place] % (Auto) % Eos % (Auto) % Baso % (Auto) % Neut # (Auto) (1.4-6.5) K/uL Lymph # (Auto) (1.2-3.4) K/uL [place] # (Auto) (0.11-0.59) K/uL Eos # (Auto) (0-0.5) K/uL Baso # (Auto) (0-0.2) K/uL Immature Gran # (Auto) (0.00-0.02) K/uL PT (9.0-12.0) Seconds INR (0.9-1.1) APTT (21.0-31.0) Seconds PTT Ratio D-Dimer 390 (0-500) ug/L FEU VBG pH 7.38 (7.36-7.41) VBG pCO2 52 H (38-50) mmHg VBG pO2 23 mmHg VBG HCO3 30 mmol/L VBG O2 Saturation < 60.0 % VBG Base Excess 3.7 mEq/L Barometric Pressure 727.1 mm/Hg Sodium (136-145) mmol/L Potassium (3.5-5.1) mmol/L Chloride (98-107) mmol/L Carbon Dioxide (21-32) mmol/L Anion Gap (3-11) BUN (7-18) mg/dl Creatinine (0.6-1.4) mg/dl Est Cr Clr Drug Dosing ml/min Est GFR ( Amer) Est GFR (Non-Af Amer) BUN/Creatinine Ratio (10-20) Glucose (70-99) mg/dl Lactate 1.3 (0.4-2.0) mmol/L Calcium (8.5-10.1) mg/dl Phosphorus (2.5-4.9) mg/dl Magnesium (1.8-2.4) mg/dl Total Bilirubin (0.2-1) mg/dl Direct Bilirubin (0-0.2) mg/dl AST (15-37) U/L ALT (12-78) U/L Alkaline Phosphatase (45-117) U/L Troponin I (0-0.045) ng/ml NT-Pro-B Natriuret Pep (0-900) pg/ml Total Protein (6.4-8.2) gm/dl Albumin (3.4-5.0) gm/dl Globulin (2.5-4.0) gm/dl Albumin/Globulin Ratio (0.9-2) Procalcitonin (0-0.5) ng/ml TSH (0.300-4.500) uIu/ml Urine Color Urine Appearance (Clear) Urine pH (4.5-7.5) Ur Specific [place] (1.000-1.030) Urine Protein (Negative) Urine Glucose (UA) (Negative) Urine Ketones (Negative) Urine Blood (Negative) Urine Nitrite (Negative) Urine Bilirubin (Negative) Urine Urobilinogen (Negative) Ur Leukocyte Esterase (Negative) Urine WBC (Auto) (0-5) /hpf Urine RBC (Auto) (0-4) /hpf U Hyaline Cast (Auto) (0-5) /lpf U Epithel Cells (Auto) (0-5) /lpf Urine Bacteria (Auto) (Negative) Ur Renal Epithelial Cell Urine Mucus (None Prsent) Adenovirus (PCR) (NotDetected) B. pertussis DNA (PCR) (NotDetected) B.parapertussis DNA PCR (NotDetected) C. pneumoniae DNA (PCR) (NotDetected) Coronavirus OC43 (PCR) (NotDetected) Coronavirus HKU1 (PCR) (NotDetected) Coronavirus 229E (PCR) (NotDetected) COVID-19 PCR (NotDetected) Coronavirus NL63 (PCR) (NotDetected) Human Metapneumovir PCR (NotDetected) Influenza Type A (PCR) (NotDetected) Influenza Type B (PCR) (NotDetected) M. pneumoniae (PCR) (NotDetected) Parainfluenza 1 (PCR) (NotDetected) Parainfluenza 2 (PCR) (NotDetected) Parainfluenza 3 (PCR) (NotDetected) Parainfluenza 4 (PCR) (NotDetected) RSV (PCR) (NotDetected) Entero/Rhino (PCR) (NotDetected) Administered Medications Gabapentin (Gabapentin 300 Mg Cap) 300 mg PO QDD ABDI Stop: 05/28/20 17:59 Last Admin: 04/28/20 18:37 Dose: 300 mg Documented by: [id number] Sodium Chloride (Nss 1000ml) 1,000 mls @ 80 mls/hr IV .[id number] ABDI Stop: 04/29/20 02:14 Last Admin: 04/28/20 16:25 Dose: 80 mls/hr Documented by: [id number] Infusion: 04/28/20 16:25 Dose: 80 mls/hr Documented by: [id number] Admin: 04/28/20 14:13 Dose: 80 mls/hr Documented by: [id number] Magnesium Oxide (Magnesium Oxide 400 Mg Tab) 400 mg PO BID ABDI Stop: 05/28/20 20:59 Last Admin: 04/28/20 20:59 Dose: 400 mg Documented by: [id number] Metoprolol Succinate (Metoprolol Succ 50mg Ext Rel Tab) 100 mg PO BID ABDI Stop: 05/28/20 20:59 Last Admin: 04/28/20 21:00 Dose: Not Given Documented by: [id number] Rivaroxaban (Rivaroxaban 20 Mg Tab) 20 mg PO DAILY@18 ABDI Stop: 05/28/20 17:59 Last Admin: 04/28/20 18:37 Dose: 20 mg Documented by: [id number] Sodium Chloride (Sodium Chloride 0.9% 10ml Flush) 30 ml IV Q24H ABDI Stop: 05/02/20 18:01 Last Admin: 04/28/20 20:09 Dose: 30 ml Documented by: [id number] Trazodone HCl (Trazodone Hcl 50 Mg Tab) 150 mg PO QPM ABDI Stop: 05/28/20 20:59 Last Admin: 04/28/20 21:00 Dose: 150 mg Documented by: [id number] Discontinued Medications Albuterol (Albuterol Hfa 8 Gm Inhaler) 2 puffs INH NOW ONE Stop: 04/28/20 13:31 Last Admin: 04/28/20 14:12 Dose: 2 puffs Documented by: [id number] Dexamethasone (Dexamethasone Sod Inj 10 Mg/Ml Vial) 10 mg IV NOW ONE Stop: 04/28/20 13:31 Last Admin: 04/28/20 14:12 Dose: 10 mg Documented by: [id number] Acetaminophen (Ofirmev) 1,000 mg in 100 mls @ 400 mls/hr IV NOW STA Stop: 04/28/20 12:52 Last Infusion: 04/28/20 15:12 Dose: 0 mls/hr Documented by: [id number] Admin: 04/28/20 14:12 Dose: 400 mls/hr Documented by: [id number] Prochlorperazine (Compazine) 2 mls @ 1 mls/min IV ONE ONE Stop: 04/28/20 12:39 Last Admin: 04/28/20 14:12 Dose: 1 mls/min Documented by: [id number] Famotidine (Pepcid 20mg Iv Push) 20 mg in 5 mls @ 2.5 mls/min IV NOW STA Stop: 04/28/20 12:39 Last Admin: 04/28/20 14:12 Dose: 2.5 mls/min Documented by: [id number] Remdesivir 200 mg/ Sodium (Chloride) 250 mls @ 125 mls/hr IV ONE ONE; Protocol Stop: 04/28/20 16:44 Last Infusion: 04/28/20 20:19 Dose: 0 mls/hr Documented by: [id number] Admin: 04/28/20 17:34 Dose: 125 mls/hr Documented by: [id number] Doxycycline Hyclate 100 mg/ (Dextrose) 110 mls @ 50 mls/hr IV ONE ONE Stop: 04/28/20 17:11 Last Infusion: 04/28/20 23:26 Dose: 0 mls/hr Documented by: [id number] Admin: 04/28/20 20:10 Dose: 50 mls/hr Documented by: [id number] Ceftriaxone Sodium 2,000 mg/ (Dextrose) 70 mls @ 100 mls/hr IV ONE ONE; Protocol Stop: 04/28/20 15:41 Last Infusion: 04/28/20 17:12 Dose: 0 mls/hr Documented by: [id number] Admin: 04/28/20 16:30 Dose: 100 mls/hr Documented by: [id number] Discharge Plan Visit Data Chief Complaint: Shortness of Breath/Dyspnea Stated Complaint: SOB, CHEST PAIN, UPSET STOMACH ED Provider: Jose Eldridge Discharge Problem: Pneumonia due to COVID-19 virus, Hypoxia, Paroxysmal atrial fibrillation, Atypical chest pain Patient Disposition: Admitted As Inpatient Discharge Instructions Interventions: ED Discharge Assessment Last Done: 04/28/20 15:56
[2020-04-28] MEDS ORDERED: PROCHLORPERAZINE 2 ML IV ONE (12:38)
[2020-04-28] MEDS ORDERED: ACETAMINOPHEN 1,000 MG/100 ML VIAL IV STA (12:38)
[2020-04-28] MEDS ORDERED: FAMOTIDINE 20MG IV PUSH 20 MG/5 ML SYR IV STA (12:38)
[2020-04-28 12:41] LABS: Basophils # (auto) 0.01 K/uL (0-0.2); Basophils % (auto) 0.3 %; Eosinophils # (auto) 0.02 K/uL (0-0.5); Eosinophils % (auto) 0.6 %; Hemoglobin 12.9 g/dL (14.0-18.0); Immature Granulocytes # (auto) 0.01 K/uL (0.00-0.02); Immature Granulocytes % (auto) 0.3 %; Lymphocytes # (auto) 0.73 K/uL (1.2-3.4); Lymphocytes % (auto) 20.8 %; Mean Corpuscular Hemoglobin 24.1 pg (25-34); Mean Corpuscular Hgb Conc 31.5 g/dL (32-36); Mean Corpuscular Volume 76.5 fL (80-100); Mean Platelet Volume 9.5 fL (7.4-10.4); Monocytes # (auto) 0.25 K/uL (0.11-0.59); Monocytes % (auto) 7.1 %; Neutrophils # (auto) 2.49 K/uL (1.4-6.5); Neutrophils % (auto) 70.9 %; Platelet Count 130 K/uL (130-400); RDW Coefficient of Variation 16.6 % (11.5-14.5); RDW Standard Deviation 46.2 fL (36.4-46.3); Red Blood Count 5.36 M/uL (4.7-6.1); White Blood Count 3.51 K/uL (4.8-10.8)
[2020-04-28 12:53] LABS: Appearance Urine Clear (Clear); Blood Urine Negative (Negative); Color Urine Dark Yellow; Epithelial Cell Urine Auto >30 /lpf (0-5); Glucose Urine UA Negative (Negative); Ketones Urine Trace (Negative); Leukocyte Esterase Urine Trace (Negative); Nitrite Urine Positive (Negative); Protein Urine 2+ (Negative); Specific Gravity Urine 1.032 (1.000-1.030); Urobilinogen Urine Positive (Negative); pH Urine 5.5 (4.5-7.5)
[2020-04-28 12:54] LABS: INR 1.2 (0.9-1.1); Partial Thromboplastin Ratio 1.6; Partial Thromboplastin Time 43.6 Seconds (21.0-31.0); Prothrombin Time 12.4 Seconds (9.0-12.0)
[2020-04-28 12:58] LABS: Alanine Aminotransferase 16 U/L (12-78); Albumin Level 3.5 gm/dl (3.4-5.0); Aspartate Aminotransferase 21 U/L (15-37); BUN Creatinine Ratio 11.8 (10-20); Bilirubin Direct 0.2 mg/dl (0-0.2); Blood Urea Nitrogen 12 mg/dl (7-18); Calcium 8.4 mg/dl (8.5-10.1); Carbon Dioxide 30 mmol/L (21-32); Chloride 104 mmol/L (98-107); Creatinine Clr Calc Pharmacy 133.2 ml/min; Est GFR (African American) 91.1; Est GFR (Non-African American) 78.6; Glucose 102 mg/dl (70-99); Sodium 138 mmol/L (136-145)
[2020-04-28 12:59] LABS: Bilirubin Urine Negative (Negative); Ictotest Urine Negative (Negative)
[2020-04-28 13:09] LABS: Albumin Globulin Ratio 0.9 (0.9-2); Alkaline Phosphatase 101 U/L (45-117); Bilirubin,Total 0.7 mg/dl (0.2-1); NT Pro B Type Natriuretic Pept 712 pg/ml (0-900); Phosphorus 2.5 mg/dl (2.5-4.9); Total Protein 7.5 gm/dl (6.4-8.2); Troponin I < 0.015 ng/ml (0-0.045)
[2020-04-28 13:12] LABS: Cast Urine Automated 0 /lpf (0-5); Mucus Urine Present (None Prsent)
[2020-04-28 13:13] LABS: Bacteria Urine Automated 1+ (Negative); RBC Urine Automated 0-4 /hpf (0-4)
[2020-04-28 13:16] LABS: Base Excess VBG 3.7 mEq/L; HCO3 VBG 30 mmol/L; PCO2 VBG 52 mmHg (38-50); PO2 VBG 23 mmHg; pH VBG 7.38 (7.36-7.41)
[2020-04-28 13:17] LABS: Adenovirus PCR Not Detected (NotDetected); Bordetella parapertussis PCR Not Detected (NotDetected); Bordetella pertussis PCR Not Detected (NotDetected); Chlamydia pneumoniae PCR Not Detected (NotDetected); Coronavirus 229E PCR Not Detected (NotDetected); Coronavirus HKU1 PCR Not Detected (NotDetected); Coronavirus NL63 PCR Not Detected (NotDetected); Coronavirus OC43PCR Not Detected (NotDetected); Human Metapneumovirus PCR Not Detected (NotDetected); Influenza A PCR Not Detected (NotDetected); Influenza B PCR Not Detected (NotDetected); Mycoplasma pneumoniae PCR Not Detected (NotDetected); Parainfluenza Virus 1 PCR Not Detected (NotDetected); Parainfluenza Virus 2 PCR Not Detected (NotDetected); Parainfluenza Virus 3 PCR Not Detected (NotDetected); Parainfluenza Virus 4 PCR Not Detected (NotDetected); Respiratory Syncytial VirusPCR Not Detected (NotDetected); Rhinovirus/Enterovirus PCR Not Detected (NotDetected)
[2020-04-28 13:18] LABS: Coronavirus CoV-2 (COVID19)PCR DETECTED (NotDetected)
[2020-04-28 13:30] LABS: Oxygen Saturation VBG < 60.0 %
[2020-04-28] MEDS ORDERED: ALBUTEROL HFA 8 GM INHALER INH ONE (13:30)
[2020-04-28] MEDS ORDERED: DEXAMETHASONE SOD INJ 10 MG/ML VIAL IV ONE (13:30)
[2020-04-28] MEDS ORDERED: NITROGLYCERIN SL 0.4 MG/TAB TAB SL PRN (13:43)
[2020-04-28] MEDS ORDERED: POLYETHYLENE (MIRALAX) 17 GM PACK PO PRN (13:43)
[2020-04-28] MEDS ORDERED: ALUMINUM/MAGNESIUM SUSP 30 ML UDC PO PRN (13:43)
[2020-04-28] MEDS ORDERED: MAGNESIUM HYDROXIDE SUSP 30 ML UDC PO PRN (13:43)
[2020-04-28] MEDS ORDERED: HEPARIN SOD 5,000 UNIT/0.5 ML VIAL SQ SCH (14:00)
--- NOTE | 2020-04-28 14:01 | History & Physical Report ---
Date of Service April 28, 2020 Assessment & Plan (1) Pneumonia due to COVID-19 virus: presented with symptoms of chills , body ache , cough . SOB , ABURTO -loss of sensation of taste and smell for a week Cxray shows left basilar atelectasis vs infiltrate COVID -19 PCR positive pt was given IV Dexamethasone in ER will continue dexamethasone 6 mg IV for 10 days -per current guideline can be changed to equivalent oral steroid Prednisone 40 mg daily -when clinically improves started on IV Remdesivir : ordered for 200 mg IV X1 now then 100mg IV daily for total 5 days tx pt meets criteria by current FDA guideline : confirmed COVID -19 pt with hypoxia ( spo02 < 94% in RA , requiring supplemental o2 ) cont strict air borne and contact isolation . Will hold off convalescent Plasma for now Cxray shows pulm congestion , pt does not meets criteria for severe /life threatening COVID 19 illness will start pt on empiric antibiotic for possible underlying Community acquired pneumonia : IV Rocephin /Doxycycline HX OF PAROXYSMAL AFIB : cont beta stef -with holding parameters hold Diltiazem now for hypotension on Xaralto HYPOTHYROIDISM : cont levothyroxine HYPOTENSION : due to dehydration , acute illness hold lasix for now gentle IV hydration , resume diuretics when clinically appropriate POSSIBLE UTI : UA + nitrite , leukocyte estarase on Iv rocephin follow urine culture FULL CODE DVT PROPHYLAXIS: On Xaralto DISPOSITION ; expected to be discharged home when medically stable PT/OT eval requested , social service consult for discharge planning (2) Hypoxia: History of Present Illness Chief Complaint: cough , sob Primary Care Provider: Sandi Roman This is a 60 yo male followed by Dr Roman for internal medicine . His past medical hx includes moderate coronary artery disease ( 50% LAD , 40% RCA stenosis ) per cardiac cath 2013 , on medical management , hx of PHYLLIS on CPAP at night , Hx of paroxysmal afib on anticoagulation with Xarelto . HTN -presents to ER with complain of SOB , chest pain , cough , generalized body aches and fatigue and also loss of taste and smell . no fever at home , felt feverish ,and chills . His symptoms started almost a week back . pt denies of any known exposure to COVID -19 . on arrival to ER pt was hypoxic 88% in RA -improved to 95% with 2 L supplemental 02 was hypotensive BP 99/76. improved after IV fluid Cxray shows : trace pleural effusions with minimal fluid layering along the minor fissure . Minimal Left basilar opacities favor atelectasis Allergies Allergy/AdvReac Type Severity Reaction Status Date / Time No Known Allergies Allergy ` Verified 04/28/20 14:04 Home Medications Home Medications Medication Instructions Recorded Confirmed Type diclofenac sodium 2 g TOPICAL QID 11/24/18 04/28/20 History diltiazem HCl 240 mg PO QAM 11/24/18 04/28/20 History ergocalciferol (vitamin D2) 50,000 unit PO WK 11/24/18 04/28/20 History [Vitamin D2] escitalopram oxalate 20 mg PO QAM 11/24/18 04/28/20 History magnesium oxide 400 mg PO BID 11/24/18 04/28/20 History meloxicam 15 mg PO QAM 11/24/18 04/28/20 History metoprolol succinate 100 mg PO BID 11/24/18 04/28/20 History pantoprazole 40 mg PO DAILY PRN 11/24/18 04/28/20 History rivaroxaban [Xarelto] 20 mg PO PM 11/24/18 04/28/20 History trazodone 150 mg PO QPM 11/24/18 04/28/20 History ferrous sulfate [iron] 325 mg PO QAM 11/28/18 04/28/20 History ibuprofen [Advil] 200 mg PO Q6H PRN 11/28/18 04/28/20 History levothyroxine 88 mcg PO QAM 07/02/19 04/28/20 History furosemide 40 mg tablet 40 mg PO QAM 08/01/19 04/28/20 History gabapentin 300 mg capsule 300 mg PO TID 08/01/19 04/28/20 History potassium chloride 20 mEq oral 20 meq PO HS 08/01/19 04/28/20 History packet naproxen sodium [Aleve] 220 mg PO Q12H PRN 04/28/20 04/28/20 History Past Med/Surg History Medical History (Updated 04/28/20 @ 13:33 by Jose Eldridge MD) Chronic anticoagulation Coronary artery disease "moderate disease per cardiac cath [facility] 2013; 50% LAD, 40% RCA" Depression Diabetes mellitus type 2, controlled History of colonic polyps History of urinary calculi "right ureteral stone 2015" Hx of sciatica Hypertension Hypothyroidism Insomnia Iron deficiency anemia "heme + stool 2015, subsequent EGD and colonoscopy neg except for polyp" Lumbar disc herniation Lumbar radiculopathy Morbid obesity Paroxysmal atrial fibrillation Ventricular septal defect Vitamin B12 deficiency Surgical History Status post cardiac catheterization "[place] 2014, 50% LAD, 40% RCA" Status post cystoscopy "with right ureteroscopy, laser lithotripsy, basket stone extraction" Status post gastric bypass for obesity Social History (Updated 08/01/19 @ 09:31 by Janet Dior, RN) Smoking Status: Former smoker Hx Alcohol Use: No Hx Substance Use: No Preferred Language: Turkish Communication Ability: Effective Hearing Ability: Normal 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 Beliefs That Will Affect Care: None marital status: single Current Living Situation: Alone Other Information That Helps Us Care for You: No Feels Safe at Home: Yes Safety Concerns: Feels Safe At This Time Assistive Devices: Contacts Assistive Devices Comment: CPAP sometimes at home Review of Systems Review of Systems: All systems reviewed & are unremarkable except as noted in HPI & below Constitutional: + chills, + sweats, + body aches, + fatigue, + malaise and + weakness; no fever Ear, Nose, Mouth, Throat: + dizziness loss of taste and smell Respiratory: + cough, + dyspnea and + dyspnea on exertion Cardiovascular: + dyspnea, + dyspnea on exertion and + lightheadedness Physical Exam Constitutional: WD/WN, vitals as above no acute distress Eyes: PERRL, conjunctivae normal, anicteric sclerae ENMT: external ear and nose normal, oropharynx normal Neck: trachea midline, no thyromegaly Respiratory: + cough Auscultation: + diminished lung sounds Cardiovascular: RRR, no murmur, no edema Gastrointestinal (Abdomen): Percussion/Palpation: abdomen soft; abdomen nontender Musculoskeletal: no cyanosis or clubbing, extremities motor strength 5/5 Skin: no rashes, warm and dry Neurologic: PERRL, EOMI, accommodation nl, no face palsy, no dysarthria Psychiatric: A+Ox3, euthymic affect Results & Data Results & Data ([facility]) Vital Signs (Past 12 Hours) Vital Signs Temp Pulse Resp BP Pulse Ox 04/28/20 12:31 72 24 114/67 94 04/28/20 12:30 78 94 04/28/20 12:20 87 L 04/28/20 12:00 79 21 126/79 91 04/28/20 11:45 90 04/28/20 11:37 99/76 L 91 04/28/20 11:30 85 16 99/76 L 91 04/28/20 11:27 93 04/28/20 11:12 37.2 C 82 22 127/83 88 L 04/28/20 11:05 83 18 127/83 92 Diagnostic Findings PORTABLE CHEST XRAY : IMPRESSION: 1. Cardiomegaly with pulmonary vascular congestion. 2. Trace pleural effusions with minimal fluid layering along the minor fissure. 3. Left basilar densities suggest probable atelectasis. Code Status & VTE Plan VTE Prophylaxis Plan VTE Prophylaxis will be ordered: Yes
[2020-04-28] MEDS: SODIUM CHLORIDE 0.9% 1000ML 1,000 ML IV SCH ×2 (14:13→16:25)
[2020-04-28 14:17] LABS: D Dimer 390 ug/L FEU (0-500)
[2020-04-28] MEDS ORDERED: REMDESIVIR 200 MG in SODIUM CHLORIDE 0.9% 210 ML IV ONE (14:45)
[2020-04-28] MEDS ORDERED: DOXYCYCLINE HYCLATE 100 MG in DEXTROSE 5% 100 ML IV ONE (15:00)
[2020-04-28] MEDS ORDERED: cefTRIAXone SODIUM 2,000 MG in DEXTROSE 5% 50 ML IV ONE (15:00)
[2020-04-28] MEDS ORDERED: PROCHLORPERAZINE 10 MG in SYRINGE 8 ML IV PRN (16:24)
[2020-04-28] MEDS ORDERED: PANTOprazole 40 MG TAB PO PRN (16:24)
[2020-04-28] MEDS: RIVAROXABAN 20 MG TAB PO SCH (18:37)
[2020-04-28] MEDS: GABAPENTIN 300 MG CAP PO SCH (18:37)
[2020-04-28] MEDS: SODIUM CHLORIDE 0.9% 10ML FLUSH IV SCH (20:09)
--- NOTE | 2020-04-28 20:28 | Electrocardiogram Report ---
Test Reason : Blood Pressure : / mmHG Vent. Rate : 089 BPM Atrial Rate : 091 BPM P-R Int : 000 ms QRS Dur : 136 ms QT Int : 396 ms P-R-T Axes : 000 107 005 degrees QTc Int : 481 ms Poor data quality, interpretation may be adversely affected Atrial fibrillation with premature ventricular or aberrantly conducted complexes Right bundle branch block Abnormal ECG When compared with ECG of 17-JUL-2017 12:21, No significant change Confirmed by Carlos Cardona ([id number]) on 04/28/2020 8:28:12 PM Referred By: REFERRED SELF Confirmed By:Carlos Cardona
[2020-04-28] MEDS: MAGNESIUM OXIDE 400 MG TAB PO SCH (20:59)
[2020-04-28] MEDS: METOPROLOL SUCC 50MG EXT REL TAB PO SCH (21:00)
[2020-04-28] MEDS: traZODone HCL 50 MG TAB PO SCH (21:00)
[2020-04-29] MEDS: LEVOTHYROXINE SODIUM 88 MCG TABLET PO SCH (05:39)
[2020-04-29 06:35] LABS: Basophils # (auto) 0.01 K/uL (0-0.2); Basophils % (auto) 0.4 %; Hematocrit (blood only) 37.9 % (42-52); Hemoglobin 11.7 g/dL (14.0-18.0); Lymphocytes # (auto) 0.48 K/uL (1.2-3.4); Lymphocytes % (auto) 18.8 %; Mean Corpuscular Hemoglobin 23.7 pg (25-34); Mean Corpuscular Hgb Conc 30.9 g/dL (32-36); Mean Corpuscular Volume 76.7 fL (80-100); Mean Platelet Volume 9.3 fL (7.4-10.4); Monocytes # (auto) 0.11 K/uL (0.11-0.59); Monocytes % (auto) 4.3 %; Neutrophils # (auto) 1.95 K/uL (1.4-6.5); Neutrophils % (auto) 76.5 %; Platelet Count 128 K/uL (130-400); RDW Coefficient of Variation 16.6 % (11.5-14.5); RDW Standard Deviation 46.4 fL (36.4-46.3); Red Blood Count 4.94 M/uL (4.7-6.1); White Blood Count 2.55 K/uL (4.8-10.8)
[2020-04-29 07:17] LABS: Albumin Level 2.9 gm/dl (3.4-5.0); BUN Creatinine Ratio 15.8 (10-20); Creatinine Clr Calc Pharmacy 192.4 ml/min; Est GFR (African American) 116.9; Est GFR (Non-African American) 100.8; Potassium 3.6 mmol/L (3.5-5.1)
[2020-04-29 07:19] LABS: Albumin Globulin Ratio 0.8 (0.9-2); Bilirubin,Total 0.4 mg/dl (0.2-1); Globulin 3.6 gm/dl (2.5-4.0); Total Protein 6.5 gm/dl (6.4-8.2)
[2020-04-29] MEDS: GABAPENTIN 600 MG TAB PO SCH (08:24)
[2020-04-29] MEDS: DEXAMETHASONE SOD PHOSPHATE 6 MG in SYRINGE 0 ML IV SCH (08:25)
[2020-04-29] MEDS: MAGNESIUM OXIDE 400 MG TAB PO SCH ×2 (08:25→20:41)
[2020-04-29] MEDS: FERROUS SULFATE 325 MG TAB PO SCH (08:25)
[2020-04-29] MEDS: METOPROLOL SUCC 50MG EXT REL TAB PO SCH ×2 (08:25→20:42)
[2020-04-29] MEDS: ASPIRIN 81 MG ECTAB PO SCH (08:25)
[2020-04-29] MEDS: DOXYCYCLINE HYCLATE 100 MG in DEXTROSE 5% 100 ML IV SCH ×2 (08:38→20:47)
[2020-04-29] MEDS ORDERED: INFLUENZA ADMINISTRATION CHARGE ONE (09:00)
[2020-04-29] MEDS ORDERED: INFLUENZA VIRUS QUAD VACCINE 0.5 ML SYR IM ONE (09:00)
[2020-04-29] MEDS ORDERED: DEXAMETHASONE SOD INJ 10 MG/ML VIAL IV SCH (09:00)
[2020-04-29] MEDS ORDERED: PNEUMOCOCCAL ADMINISTRATION CHARGE ONE (09:00)
[2020-04-29] MEDS ORDERED: PNEUMOCOCCAL POLYSACCHARIDES 25 MCG/0.5 ML VIAL/SYR IM ONE (09:00)
[2020-04-29] MEDS: ACETAMINOPHEN 325 MG TAB PO PRN (14:20)
[2020-04-29] MEDS ORDERED: cefTRIAXone SODIUM 2,000 MG in DEXTROSE 5% 50 ML IV SCH (16:00)
[2020-04-29] MEDS: GABAPENTIN 300 MG CAP PO SCH (16:51)
[2020-04-29] MEDS: RIVAROXABAN 20 MG TAB PO SCH (17:50)
[2020-04-29] MEDS: REMDESIVIR 100 MG in SODIUM CHLORIDE 0.9% 230 ML IV SCH (17:50)
[2020-04-29] MEDS: SODIUM CHLORIDE 0.9% 10ML FLUSH IV SCH (17:50)
[2020-04-29] MEDS: traZODone HCL 50 MG TAB PO SCH (20:41)
--- NOTE | 2020-04-29 22:19 | Hospitalist Progress Note ---
Date of Service April 29, 2020 Assessment & Plan (1) Pneumonia due to COVID-19 virus: Presented with fever, cough, SOB, myalgias, loss of taste and smell. O2 sats as low as 87% RA. Lymphopenic with lymphocyte count of 730. Chest x-ray showed left basilar densities. SARS-CoV-2 PCR positive. Symptoms, lymphopenia, hypoxia suggest probable COVID-19 pneumonia even though not overtly noted on chest x-ray. CT could confirm diagnosis of pneumonia, but would not change of address clerk. Receiving dexamethasone and remdesivir- today is day # 2. Follow LFT's. Convalescent plasma considered, but not ordered because of (1) CHF and (2) unlikely benefit given duration of symptoms. Bacterial pneumonia unlikely given normal procalcitonin; DC antibiotics. (2) Hypoxia: O2 sats as low as 87% RA. Hypoxia secondary to COVID-19 pneumonia. Continue supplemental O2. (3) Coronary artery disease: No anginal symptoms. (4) CHF (congestive heart failure): Chest x-ray showed cardiomegaly and pulmonary vascular congestion. Echo 2017 showed normal LVEF. Probable acute on chronic left ventricular diastolic heart failure (HFpEF). Continue furosemide. (5) Paroxysmal atrial fibrillation: Currently rate-controlled atrial fib / flutter. Continue metoprolol, diltiazem, rivaroxaban. (6) Hypertension: Continue metoprolol and diltiazem. (7) Diabetes mellitus type 2, controlled: FBS today = 117. Follow. (8) Hypothyroidism: Continue levothyroxine. (9) Morbid obesity: Wt 210 kg, BMI 68.4. Heart healthy diet. (10) DVT prophylaxis: On rivaroxaban for atrial fib / flutter. Ambulate. (11) Discharge planning issues: Anticipated discharge to home. Internal Medicine follow-up with Dr. Roman. Admission and Anticipated Discharge Date Admission Date: April 28, 2020 Subjective Recheck for COVID-19 pneumonia. Patient seen in their room around 1520. Feels a little better. No fever. Rare cough, nonproductive. Less SOB. Using supplemental O2 2 LPM. Review of Systems: Constitutional- as noted above. Cardiac- no chest pain. Pulmonary- as noted above. GI- no nausea, vomiting, diarrhea, melena, hematochezia. - no urinary symptoms. Otherwise, as noted above. Physical Exam Constitutional: no acute distress Eyes: sclerae not anicteric Respiratory: normal respiratory effort, lungs clear to auscultation Cardiovascular: Rate/Rhythm: regular rate and regular rhythm Extremities: + edema (trace-1+ pretibial edema); no calf tenderness Gastrointestinal (Abdomen): normal bowel sounds, soft, nontender, no hepatosplenomegaly Musculoskeletal: Extremities: no cyanosis Skin: no rashes, warm and dry Psychiatric: Orientation: alert and oriented x 3 Results & Data Results & Data ([facility]) Vital Signs (Past 12 Hours) Vital Signs Temp Pulse Pulse Resp BP Pulse Ox 04/29/20 19:09 36.7 C 84 22 124/79 93 04/29/20 16:33 98 H 04/29/20 16:00 78 04/29/20 15:48 36.9 C 92 H 23 125/78 93 04/29/20 11:35 37.1 C 91 H 18 125/89 93 Laboratory Results Laboratory Results - last 24 hr 04/29/20 04/29/20 06:02 06:02 WBC 2.55 L RBC 4.94 Hgb 11.7 L Hct 37.9 L MCV 76.7 L MCH 23.7 L MCHC 30.9 L RDW Std Deviation 46.4 H RDW Coeff of Phu 16.6 H Plt Count 128 L MPV 9.3 Immature Gran % (Auto) 0.0 Neut % (Auto) 76.5 Lymph % (Auto) 18.8 [place] % (Auto) 4.3 Eos % (Auto) 0.0 Baso % (Auto) 0.4 Neut # (Auto) 1.95 Lymph # (Auto) 0.48 L [place] # (Auto) 0.11 Eos # (Auto) 0.00 Baso # (Auto) 0.01 Immature Gran # (Auto) 0.00 Sodium 140 Potassium 3.6 Chloride 108 H Carbon Dioxide 30 Anion Gap 2.0 L BUN 12 Creatinine 0.73 D Est Cr Clr Drug Dosing 192.4 Est GFR ( Amer) 116.9 Est GFR (Non-Af Amer) 100.8 BUN/Creatinine Ratio 15.8 Glucose 117 H Calcium 8.0 L Total Bilirubin 0.4 AST 18 ALT 14 Alkaline Phosphatase 89 Total Protein 6.5 Albumin 2.9 L Globulin 3.6 Albumin/Globulin Ratio 0.8 L
[2020-04-30] MEDS: LEVOTHYROXINE SODIUM 88 MCG TABLET PO SCH (06:29)
[2020-04-30 06:59] LABS: Est GFR (African American) 113.1; Est GFR (Non-African American) 97.6; Potassium 3.9 mmol/L (3.5-5.1)
[2020-04-30 07:00] LABS: BUN Creatinine Ratio 18.1 (10-20); Calcium 8.7 mg/dl (8.5-10.1); Creatinine Clr Calc Pharmacy 177.8 ml/min
[2020-04-30] MEDS: MAGNESIUM OXIDE 400 MG TAB PO SCH ×2 (08:15→20:46)
[2020-04-30] MEDS: GABAPENTIN 600 MG TAB PO SCH (08:15)
[2020-04-30] MEDS: FERROUS SULFATE 325 MG TAB PO SCH (08:15)
[2020-04-30] MEDS: METOPROLOL SUCC 50MG EXT REL TAB PO SCH ×2 (08:15→20:47)
[2020-04-30] MEDS: ASPIRIN 81 MG ECTAB PO SCH (08:15)
[2020-04-30] MEDS: DEXAMETHASONE SOD PHOSPHATE 6 MG in SYRINGE 0 ML IV SCH (08:52)
[2020-04-30] MEDS: ACETAMINOPHEN 325 MG TAB PO PRN (14:54)
[2020-04-30] MEDS: ONDANSETRON INJ 2 MG/ML 2 ML VIAL IV PRN (14:55)
[2020-04-30] MEDS: REMDESIVIR 100 MG in SODIUM CHLORIDE 0.9% 230 ML IV SCH (16:52)
[2020-04-30] MEDS: GABAPENTIN 300 MG CAP PO SCH (16:52)
[2020-04-30] MEDS: RIVAROXABAN 20 MG TAB PO SCH (16:52)
[2020-04-30] MEDS: SODIUM CHLORIDE 0.9% 10ML FLUSH IV SCH (16:52)
[2020-04-30] MEDS: traZODone HCL 50 MG TAB PO SCH (20:46)
--- NOTE | 2020-04-30 21:24 | Hospitalist Progress Note ---
Date of Service April 30, 2020 Assessment & Plan (1) Pneumonia due to COVID-19 virus: Presented with fever, cough, SOB, myalgias, loss of taste and smell. O2 sats as low as 87% RA. Lymphopenic with lymphocyte count of 730. Chest x-ray showed left basilar densities. SARS-CoV-2 PCR positive. Symptoms, lymphopenia, hypoxia suggest probable COVID-19 pneumonia even though not overtly noted on chest x-ray. CT could confirm diagnosis of pneumonia, but would not acid changer. Receiving dexamethasone and remdesivir- today is day # 3. Lymphocytes 730 > 480 Procalcitonin = < 0.05. Follow LFT's. Convalescent plasma considered, but not ordered because of (1) CHF and (2) unlikely benefit given duration of symptoms. Continue remdesivir x 5 days. Continue dexamethasone for up to 10 days or time of discharge, whichever comes first. Bacterial pneumonia unlikely given normal procalcitonin; DC antibiotics. (2) Hypoxia: O2 sats as low as 87% RA. Hypoxia secondary to COVID-19 pneumonia. Received supplemental O2. Now oxygenating well on RA. (3) Coronary artery disease: No anginal symptoms. (4) CHF (congestive heart failure): Chest x-ray showed cardiomegaly and pulmonary vascular congestion. Echo 2016 showed normal LVEF. Pro-BNP 1177. Probable acute on chronic left ventricular diastolic heart failure (HFpEF). Continue furosemide. (5) Paroxysmal atrial fibrillation: Currently rate-controlled atrial fib / flutter. Continue metoprolol, diltiazem, rivaroxaban. (6) Hypertension: Continue metoprolol and diltiazem. (7) Diabetes mellitus type 2, controlled: FBS today = 108. Follow. (8) Hypothyroidism: Continue levothyroxine. (9) Morbid obesity: Wt 210 kg, BMI 68.4. Heart healthy diet. (10) DVT prophylaxis: On rivaroxaban for atrial fib / flutter. Ambulate. (11) Discharge planning issues: Anticipated discharge to home. Internal Medicine follow-up with Dr. Roman. Admission and Anticipated Discharge Date Admission Date: April 28, 2020 Subjective Recheck for COVID-19 pneumonia. Patient seen in their room around 1450. Feels better. No fever. Rare cough, nonproductive. Less SOB. Weaned off supplemental O2. Still experiencing dysgeusia and anosmia. + nausea; no vomiting, diarrhea, melena, hematochezia. Review of Systems: Constitutional- as noted above. Cardiac- no chest pain. Pulmonary- as noted above. GI- as noted above. - no urinary symptoms. Otherwise, as noted above. Physical Exam Constitutional: no acute distress Eyes: sclerae not anicteric Respiratory: normal respiratory effort, lungs clear to auscultation Cardiovascular: Rate/Rhythm: regular rate and regular rhythm Extremities: + edema (trace-1+ pretibial edema); no calf tenderness Gastrointestinal (Abdomen): normal bowel sounds, soft, nontender, no hepatosplenomegaly Musculoskeletal: Extremities: no cyanosis Skin: no rashes, warm and dry Psychiatric: Orientation: alert and oriented x 3 Results & Data Results & Data ([facility]) Vital Signs (Past 12 Hours) Vital Signs Temp Pulse Pulse Resp BP Pulse Ox 04/30/20 19:27 36.8 C 84 18 107/80 91 04/30/20 16:00 80 04/30/20 15:57 36.9 C 134/82 04/30/20 11:22 36.6 C 85 18 132/78 91 Laboratory Results 04/29/20 06:02 04/30/20 05:53 Laboratory Tests 04/30/20 05:53 AST 22 ALT 16 NT-Pro-B Natriuret Pep 1177 H
[2020-05-01] MEDS: LEVOTHYROXINE SODIUM 88 MCG TABLET PO SCH (05:50)
[2020-05-01 06:35] LABS: BUN Creatinine Ratio 18.2 (10-20); C Reactive Protein 1.18 mg/dl (0-0.29); Calcium 8.5 mg/dl (8.5-10.1); Creatinine Clr Calc Pharmacy 154.4 ml/min; Est GFR (African American) 105.8; Est GFR (Non-African American) 91.3; Potassium 4.1 mmol/L (3.5-5.1)
[2020-05-01 06:39] LABS: Ferritin 105.4 ng/ml (8-388)
[2020-05-01 06:53] LABS: Basophils # (auto) 0.01 K/uL (0-0.2); Basophils % (auto) 0.2 %; Hematocrit (blood only) 40.9 % (42-52); Hemoglobin 12.6 g/dL (14.0-18.0); Immature Granulocytes # (auto) 0.02 K/uL (0.00-0.02); Immature Granulocytes % (auto) 0.4 %; Lymphocytes # (auto) 1.07 K/uL (1.2-3.4); Mean Corpuscular Hemoglobin 23.9 pg (25-34); Mean Corpuscular Hgb Conc 30.8 g/dL (32-36); Mean Corpuscular Volume 77.6 fL (80-100); Mean Platelet Volume 9.1 fL (7.4-10.4); Monocytes # (auto) 0.43 K/uL (0.11-0.59); Monocytes % (auto) 7.7 %; Neutrophils # (auto) 4.09 K/uL (1.4-6.5); Neutrophils % (auto) 72.7 %; Platelet Count 209 K/uL (130-400); RDW Standard Deviation 47.6 fL (36.4-46.3); Red Blood Count 5.27 M/uL (4.7-6.1); White Blood Count 5.62 K/uL (4.8-10.8)
[2020-05-01] MEDS: DEXAMETHASONE SOD PHOSPHATE 6 MG in SYRINGE 0 ML IV SCH (07:41)
[2020-05-01] MEDS: FUROSEMIDE 40 MG TAB PO SCH (07:42)
[2020-05-01] MEDS: GABAPENTIN 600 MG TAB PO SCH (07:43)
[2020-05-01] MEDS: FERROUS SULFATE 325 MG TAB PO SCH (07:43)
[2020-05-01] MEDS: ESCITALOPRAM OXALATE 20 MG TAB PO SCH (07:43)
[2020-05-01] MEDS: METOPROLOL SUCC 50MG EXT REL TAB PO SCH ×2 (07:43→23:10)
[2020-05-01] MEDS: ASPIRIN 81 MG ECTAB PO SCH (07:43)
[2020-05-01] MEDS: POTASSIUM CHLORIDE CRTAB 20 MEQ TABCR PO SCH (07:43)
[2020-05-01] MEDS: MAGNESIUM OXIDE 400 MG TAB PO SCH ×2 (07:44→23:04)
--- NOTE | 2020-05-01 08:50 | Hospitalist Progress Note ---
Date of Service May 01, 2020 Assessment & Plan (1) Pneumonia due to COVID-19 virus: Presented with fever, cough, SOB, myalgias, loss of taste and smell. O2 sats as low as 87% RA. Lymphopenic with lymphocyte count of 730. Chest x-ray showed left basilar densities. SARS-CoV-2 PCR positive. Symptoms, lymphopenia, hypoxia suggest probable COVID-19 pneumonia even though not overtly noted on chest x-ray. CT could confirm diagnosis of pneumonia, but would not pipe changer. Receiving dexamethasone and remdesivir- today is day # 4. Lymphocytes 730 > 480 Procalcitonin = < 0.05. Follow LFT's. Convalescent plasma considered, but not ordered because of (1) CHF and (2) unlikely benefit given duration of symptoms. Continue remdesivir x 5 days. Continue dexamethasone for up to 10 days or time of discharge, whichever comes first. Bacterial pneumonia unlikely given normal procalcitonin; DC antibiotics. (2) Hypoxia: O2 sats as low as 87% RA. Hypoxia secondary to COVID-19 pneumonia. Received supplemental O2. Now oxygenating well on RA. (3) Coronary artery disease: No anginal symptoms. (4) CHF (congestive heart failure): Chest x-ray showed cardiomegaly and pulmonary vascular congestion. Echo 2016 showed normal LVEF. Pro-BNP 1177. Probable acute on chronic left ventricular diastolic heart failure (HFpEF). Continue furosemide. (5) Paroxysmal atrial fibrillation: Currently rate-controlled atrial fib / flutter. Continue metoprolol, diltiazem, rivaroxaban. (6) Hypertension: Continue metoprolol and diltiazem. (7) Diabetes mellitus type 2, controlled: Cont. to monitor BG while inpt UTI UA concerning for UTI Pt reports urinary frequency and dysuria Rocephin Cont. to follow urine cultx (8) Hypothyroidism: Continue levothyroxine. (9) Morbid obesity: Wt 210 kg, BMI 68.4. Heart healthy diet. (10) DVT prophylaxis: On rivaroxaban for atrial fib / flutter. Ambulate. (11) Discharge planning issues: Anticipated discharge to home. Internal Medicine follow-up with Dr. Roman. Admission and Anticipated Discharge Date Admission Date: April 28, 2020 Subjective Reports more productive cough now for the past 2 days. grayish sputum. Reports some chest pain when coughing. Pt reports urinary frequency and discomfort w/ urination for the past 2 days as well. When getting up to go to the bathroom feels little dizzy then gets better. No fevers. Review of Systems Review of Systems: All systems reviewed & are unremarkable except as noted in HPI & below Constitutional: no fever and no chills Respiratory: + cough (productive) and + dyspnea (improved) Cardiovascular: no chest pain and no palpitations Gastrointestinal: no abdominal pain, no nausea and no vomiting Genitourinary: + dysuria and + urinary frequency Physical Exam Physical Exam: Constitutional: elderly obese male laying in bed, in no acute distress Eyes: sclerae not anicteric Respiratory: normal respiratory effort, lungs clear to auscultation Cardiovascular: Rate/Rhythm: regular rate and regular rhythm Extremities: + edema (trace-1+ pretibial edema); no calf tenderness Gastrointestinal (Abdomen): normal bowel sounds, soft, nontender, obese Musculoskeletal: Extremities: no cyanosis Skin: no rashes, warm and dry Neuro/Psych: Orientation: alert and oriented x 3, speech fluent, no facial asymmetry, moves extremities spontaneously Results & Data Results & Data ([facility]) Vital Signs (Past 12 Hours) Vital Signs Temp Pulse Resp BP Pulse Ox 05/01/20 07:40 119/86 05/01/20 07:38 36.6 C 74 18 94/63 L 90 05/01/20 03:23 36.7 C 86 19 126/82 90 05/01/20 00:00 36.6 C 77 19 125/88 90 Laboratory Results 05/01/20 05/01/20 Range/Units 05:43 05:43 WBC 5.62 (4.8-10.8) K/uL RBC 5.27 (4.7-6.1) M/uL Hgb 12.6 L (14.0-18.0) g/dL Hct 40.9 L (42-52) % MCV 77.6 L (80-100) fL MCH 23.9 L (25-34) pg MCHC 30.8 L (32-36) g/dL RDW Std Deviation 47.6 H (36.4-46.3) fL RDW Coeff of Phu 17.0 H (11.5-14.5) % Plt Count 209 D (130-400) K/uL MPV 9.1 (7.4-10.4) fL Immature Gran % (Auto) 0.4 % Neut % (Auto) 72.7 % Lymph % (Auto) 19.0 % [place] % (Auto) 7.7 % Eos % (Auto) 0.0 % Baso % (Auto) 0.2 % Neut # (Auto) 4.09 (1.4-6.5) K/uL Lymph # (Auto) 1.07 L (1.2-3.4) K/uL [place] # (Auto) 0.43 (0.11-0.59) K/uL Eos # (Auto) 0.00 (0-0.5) K/uL Baso # (Auto) 0.01 (0-0.2) K/uL Immature Gran # (Auto) 0.02 (0.00-0.02) K/uL Sodium 141 (136-145) mmol/L Potassium 4.1 (3.5-5.1) mmol/L Chloride 107 (98-107) mmol/L Carbon Dioxide 30 (21-32) mmol/L Anion Gap 4.0 (3-11) BUN 17 (7-18) mg/dl Creatinine 0.91 (0.6-1.4) mg/dl Est Cr Clr Drug Dosing 154.4 ml/min Est GFR ( Amer) 105.8 Est GFR (Non-Af Amer) 91.3 BUN/Creatinine Ratio 18.2 (10-20) Glucose 99 (70-99) mg/dl Calcium 8.5 (8.5-10.1) mg/dl Ferritin 105.4 (8-388) ng/ml AST 30 (15-37) U/L ALT 22 (12-78) U/L C-Reactive Protein 1.18 H (0-0.29) mg/dl Medications Administered Current Inpatient Medications Acetaminophen (Acetaminophen 325 Mg Tab) 650 mg PO Q4H PRN PRN Reason: Pain or Fever Stop: 05/28/20 13:42 Last Admin: 04/30/20 14:54 Dose: 650 mg Documented by: Al Hydrox/Mg Hydrox/Simethicone (Aluminum/Magnesium Susp 30 Ml Udc) 15 ml PO Q4H PRN PRN Reason: Dyspepsia Stop: 05/28/20 13:42 Aspirin (Aspirin 81 Mg Ectab) [facility] [place]: 05/29/20 08:59 Last Admin: 05/01/20 07:43 Dose: 81 mg Documented by: Diltiazem HCl (Diltiazem Hcl 120 Mg Er Cap) 240 mg PO QAM [facility] Stop: 05/31/20 08:59 Last Admin: 05/01/20 07:42 Dose: 240 mg Documented by: Ergocalciferol (Ergocalciferol 50,000 Units 1250 Mcg Cap) 50,000 units PO Vargas@0900 [facility] Stop: 06/04/20 08:59 Escitalopram Oxalate (Escitalopram Oxalate 20 Mg Tab) 20 mg PO [facility] Stop: 05/31/20 08:59 Last Admin: 05/01/20 07:43 Dose: 20 mg Documented by: Ferrous Sulfate (Ferrous Sulfate 325 Mg Tab) 325 mg PO [facility] Stop: 05/29/20 08:59 Last Admin: 05/01/20 07:43 Dose: 325 mg Documented by: Furosemide (Furosemide 40 Mg Tab) 40 mg PO [facility] Stop: 05/31/20 08:59 Last Admin: 05/01/20 07:42 Dose: 40 mg Documented by: Gabapentin (Gabapentin 300 Mg Cap) 300 mg PO QDD [facility] Stop: 05/28/20 17:59 Last Admin: 04/30/20 16:52 Dose: 300 mg Documented by: Gabapentin (Gabapentin 600 Mg Tab) 600 mg PO [facility] Stop: 05/29/20 08:59 Last Admin: 05/01/20 07:43 Dose: 600 mg Documented by: Remdesivir 100 mg/ Sodium (Chloride) 250 mls @ 250 mls/hr IV Q24H [facility]; Protocol Stop: 05/02/20 18:59 Last Infusion: 04/30/20 18:15 Dose: Infused Documented by: Prochlorperazine 10 mg/ (Syringe) 10 mls @ 5 mls/min IV Q6H PRN PRN Reason: Nausea And Vomiting Stop: 05/28/20 16:23 Dexamethasone Sodium Phosphate (6 mg/ Syringe) 1.5 mls @ 1 mls/min IV DAILY [facility] Stop: 05/29/20 08:59 Last Admin: 05/01/20 07:41 Dose: 1 mls/min Documented by: Levothyroxine Sodium (Levothyroxine Sodium 88 Mcg Tablet) 88 mcg PO DAILYBB [facility] Stop: 05/29/20 06:29 Last Admin: 05/01/20 05:50 Dose: 88 mcg Documented by: Magnesium Hydroxide (Magnesium Hydroxide Susp 30 Ml Udc) 30 ml PO Q12H PRN PRN Reason: Constipation Stop: 05/28/20 13:42 Magnesium Oxide (Magnesium Oxide 400 Mg Tab) 400 mg PO BID [facility] Stop: 05/28/20 20:59 Last Admin: 05/01/20 07:44 Dose: 400 mg Documented by: Metoprolol Succinate (Metoprolol Succ 50mg Ext Rel Tab) 100 mg PO BID [facility] Stop: 05/28/20 20:59 Last Admin: 05/01/20 07:43 Dose: 100 mg Documented by: Nitroglycerin (Nitroglycerin Sl 0.4 Mg/Tab Tab) 0.4 mg SL UD PRN PRN Reason: Chest Pain Stop: 05/28/20 13:42 Ondansetron HCl (Ondansetron Inj 2 Mg/Ml 2 Ml Vial) 4 mg IV Q6H PRN PRN Reason: Nausea Stop: 05/28/20 13:42 Last Admin: 04/30/20 14:55 Dose: 4 mg Documented by: Pantoprazole Sodium (Pantoprazole 40 Mg Tab) 40 mg PO DAILY PRN PRN Reason: Gi Upset Stop: 05/28/20 16:23 Polyethylene Glycol (Polyethylene (Miralax) 17 Gm Pack) 17 gm PO DAILY PRN PRN Reason: Constipation Stop: 05/28/20 13:42 Potassium Chloride (Potassium Chloride Crtab 20 Meq Tabcr) 20 meq PO QAM [facility] Stop: 05/31/20 08:59 Last Admin: 05/01/20 07:43 Dose: 20 meq Documented by: Rivaroxaban (Rivaroxaban 20 Mg Tab) 20 mg PO DAILY@18 [facility] Stop: 05/28/20 17:59 Last Admin: 04/30/20 16:52 Dose: 20 mg Documented by: Sodium Chloride (Sodium Chloride 0.9% 10ml Flush) 30 ml IV Q24H [facility] Stop: 05/02/20 18:01 Last Admin: 04/30/20 16:52 Dose: 30 ml Documented by: Trazodone HCl (Trazodone Hcl 50 Mg Tab) 150 mg PO QPM [facility] Stop: 05/28/20 20:59 Last Admin: 04/30/20 20:46 Dose: 150 mg Documented by:
[2020-05-01] MEDS: ACETAMINOPHEN 325 MG TAB PO PRN (16:35)
[2020-05-01] MEDS: GABAPENTIN 300 MG CAP PO SCH (16:36)
[2020-05-01] MEDS: REMDESIVIR 100 MG in SODIUM CHLORIDE 0.9% 230 ML IV SCH (17:13)
[2020-05-01] MEDS: cefTRIAXone SODIUM 2,000 MG in DEXTROSE 5% 50 ML IV SCH (17:44)
[2020-05-01] MEDS: RIVAROXABAN 20 MG TAB PO SCH (17:45)
[2020-05-01] MEDS: SODIUM CHLORIDE 0.9% 10ML FLUSH IV SCH (18:38)
[2020-05-01] MEDS: traZODone HCL 50 MG TAB PO SCH (23:03)
[2020-05-02] MEDS: LEVOTHYROXINE SODIUM 88 MCG TABLET PO SCH (05:16)
[2020-05-02 06:36] LABS: Hematocrit (blood only) 40.4 % (42-52); Hemoglobin 12.5 g/dL (14.0-18.0); Mean Corpuscular Hemoglobin 23.8 pg (25-34); Mean Corpuscular Hgb Conc 30.9 g/dL (32-36); Mean Corpuscular Volume 76.8 fL (80-100); Mean Platelet Volume 9.2 fL (7.4-10.4); Platelet Count 214 K/uL (130-400); RDW Coefficient of Variation 16.8 % (11.5-14.5); RDW Standard Deviation 46.7 fL (36.4-46.3); Red Blood Count 5.26 M/uL (4.7-6.1); White Blood Count 5.89 K/uL (4.8-10.8)
[2020-05-02 07:05] LABS: BUN Creatinine Ratio 20.5 (10-20); Calcium 7.9 mg/dl (8.5-10.1); Est GFR (African American) 107.7; Est GFR (Non-African American) 92.9; Magnesium 2.2 mg/dl (1.8-2.4); Potassium 3.9 mmol/L (3.5-5.1)
[2020-05-02 07:08] LABS: Albumin Globulin Ratio 0.9 (0.9-2); Bilirubin,Total 0.4 mg/dl (0.2-1); Globulin 3.3 gm/dl (2.5-4.0); Phosphorus 3.3 mg/dl (2.5-4.9); Total Protein 6.3 gm/dl (6.4-8.2)
[2020-05-02] MEDS: ASPIRIN 81 MG ECTAB PO SCH (07:37)
[2020-05-02] MEDS: FERROUS SULFATE 325 MG TAB PO SCH (07:37)
[2020-05-02] MEDS: DEXAMETHASONE SOD PHOSPHATE 6 MG in SYRINGE 0 ML IV SCH (07:37)
[2020-05-02] MEDS: FUROSEMIDE 40 MG TAB PO SCH (07:38)
[2020-05-02] MEDS: MAGNESIUM OXIDE 400 MG TAB PO SCH ×2 (07:38→21:35)
[2020-05-02] MEDS: ESCITALOPRAM OXALATE 20 MG TAB PO SCH (07:38)
[2020-05-02] MEDS: POTASSIUM CHLORIDE CRTAB 20 MEQ TABCR PO SCH (07:38)
[2020-05-02] MEDS: METOPROLOL SUCC 50MG EXT REL TAB PO SCH ×2 (07:40→21:34)
[2020-05-02] MEDS: GABAPENTIN 600 MG TAB PO SCH (09:04)
--- NOTE | 2020-05-02 13:25 | Hospitalist Progress Note ---
Date of Service May 02, 2020 Assessment & Plan (1) Pneumonia due to COVID-19 virus: Presented with fever, cough, SOB, myalgias, loss of taste and smell. O2 sats as low as 87% RA. Lymphopenic with lymphocyte count of 730. Chest x-ray showed left basilar densities. SARS-CoV-2 PCR positive. Symptoms, lymphopenia, hypoxia suggest probable COVID-19 pneumonia even though not overtly noted on chest x-ray. CT could confirm diagnosis of pneumonia, but would not car changer. Receiving dexamethasone and remdesivir- today is day # 5. Lymphocytes 730 > 480 Procalcitonin = < 0.05. Follow LFT's. Convalescent plasma considered, but not ordered because of (1) CHF and (2) unlikely benefit given duration of symptoms. Continue remdesivir x 5 days. Continue dexamethasone for up to 10 days or time of discharge, whichever comes first. Bacterial pneumonia unlikely given normal procalcitonin; DC antibiotics. (2) Hypoxia: O2 sats as low as 87% RA. Hypoxia secondary to COVID-19 pneumonia. Received supplemental O2. Now oxygenating well on RA 2 step ordered (3) Coronary artery disease: No anginal symptoms. (4) CHF (congestive heart failure): Chest x-ray showed cardiomegaly and pulmonary vascular congestion. Echo 2017 showed normal LVEF. Pro-BNP 1177. Probable acute on chronic left ventricular diastolic heart failure (HFpEF). Continue furosemide. (5) Paroxysmal atrial fibrillation: Currently rate-controlled atrial fib / flutter. Continue metoprolol, diltiazem, rivaroxaban. (6) Hypertension: Continue metoprolol and diltiazem. (7) Diabetes mellitus type 2, controlled: Cont. to monitor BG while inpt UTI UA concerning for UTI Pt reports urinary frequency and dysuria Rocephin Cont. to follow urine cultx (8) Hypothyroidism: Continue levothyroxine. (9) Morbid obesity: Wt 210 kg, BMI 68.4. Heart healthy diet. (10) DVT prophylaxis: On rivaroxaban for atrial fib / flutter. Ambulate. (11) Discharge planning issues: Anticipated discharge to home. Internal Medicine follow-up with Dr. Roman. Admission and Anticipated Discharge Date Admission Date: April 28, 2020 Subjective Pt seen in follow up of covid infection. Reports cough has improved. He feels dizzy on and off today. Reports he is able to slowly ambulate to bathroom. Poor appetite d/t loss of smell and taste. Reports urinary symptoms somewhat improved. Review of Systems Review of Systems: All systems reviewed & are unremarkable except as noted in HPI & below Constitutional: no fever and no chills Ear, Nose, Mouth, Throat: + dizziness loss of taste and smell Respiratory: + cough (productive, improved) and + dyspnea (improved) Cardiovascular: no chest pain and no palpitations Gastrointestinal: no abdominal pain, no nausea and no vomiting Genitourinary: + dysuria and + urinary frequency Physical Exam Physical Exam: Constitutional: elderly obese male laying in bed, in no acute distress Eyes: sclerae not anicteric Respiratory: normal respiratory effort, lungs clear to auscultation Cardiovascular: Rate/Rhythm: regular rate and regular rhythm Extremities: + edema (trace-1+ pretibial edema); no calf tenderness Gastrointestinal (Abdomen): normal bowel sounds, soft, nontender, obese Musculoskeletal: Extremities: no cyanosis Skin: no rashes, warm and dry Neuro/Psych: Orientation: alert and oriented x 3, speech fluent, no facial asymmetry, moves extremities spontaneously Results & Data Results & Data ([facility]) Vital Signs (Past 12 Hours) Vital Signs Temp Pulse Pulse Resp BP Pulse Ox 05/02/20 11:13 36.8 C 80 18 112/77 92 05/02/20 07:26 36.7 C 57 L 18 125/75 95 05/02/20 06:20 72 05/02/20 04:01 36.5 C 74 22 125/84 91 Laboratory Results 05/02/20 05/02/20 05/02/20 Range/Units 11:10 07:19 05:51 WBC (4.8-10.8) K/uL RBC (4.7-6.1) M/uL Hgb (14.0-18.0) g/dL Hct (42-52) % MCV (80-100) fL MCH (25-34) pg MCHC (32-36) g/dL RDW Std Deviation (36.4-46.3) fL RDW Coeff of Phu (11.5-14.5) % Plt Count (130-400) K/uL MPV (7.4-10.4) fL Sodium 141 (136-145) mmol/L Potassium 3.9 (3.5-5.1) mmol/L Chloride 105 (98-107) mmol/L Carbon Dioxide 32 (21-32) mmol/L Anion Gap 4.0 (3-11) BUN 18 (7-18) mg/dl Creatinine 0.89 (0.6-1.4) mg/dl Est Cr Clr Drug Dosing 154.0 ml/min Est GFR ( Amer) 107.7 Est GFR (Non-Af Amer) 92.9 BUN/Creatinine Ratio 20.5 H (10-20) Glucose 98 (70-99) mg/dl POC Glucose 101 H 104 H (70-99) mg/dl Calcium 7.9 L (8.5-10.1) mg/dl Phosphorus 3.3 (2.5-4.9) mg/dl Magnesium 2.2 (1.8-2.4) mg/dl Total Bilirubin 0.4 (0.2-1) mg/dl AST 28 (15-37) U/L ALT 25 (12-78) U/L Alkaline Phosphatase 76 (45-117) U/L Total Protein 6.3 L (6.4-8.2) gm/dl Albumin 3.0 L (3.4-5.0) gm/dl Globulin 3.3 (2.5-4.0) gm/dl Albumin/Globulin Ratio 0.9 (0.9-2) Urine Color Urine Appearance (Clear) Urine pH (4.5-7.5) Ur Specific [place] (1.000-1.030) Urine Protein (Negative) Urine Glucose (UA) (Negative) Urine Ketones (Negative) Urine Blood (Negative) Urine Nitrite (Negative) Urine Bilirubin (Negative) Urine Urobilinogen (Negative) Ur Leukocyte Esterase (Negative) Urine WBC (Auto) (0-5) /hpf Urine RBC (Auto) (0-4) /hpf U Hyaline Cast (Auto) (0-5) /lpf U Epithel Cells (Auto) (0-5) /lpf Urine Bacteria (Auto) (Negative) 05/02/20 05/01/20 Range/Units 05:51 19:45 WBC 5.89 (4.8-10.8) K/uL RBC 5.26 (4.7-6.1) M/uL Hgb 12.5 L (14.0-18.0) g/dL Hct 40.4 L (42-52) % MCV 76.8 L (80-100) fL MCH 23.8 L (25-34) pg MCHC 30.9 L (32-36) g/dL RDW Std Deviation 46.7 H (36.4-46.3) fL RDW Coeff of Phu 16.8 H (11.5-14.5) % Plt Count 214 (130-400) K/uL MPV 9.2 (7.4-10.4) fL Sodium (136-145) mmol/L Potassium (3.5-5.1) mmol/L Chloride (98-107) mmol/L Carbon Dioxide (21-32) mmol/L Anion Gap (3-11) BUN (7-18) mg/dl Creatinine (0.6-1.4) mg/dl Est Cr Clr Drug Dosing ml/min Est GFR ( Amer) Est GFR (Non-Af Amer) BUN/Creatinine Ratio (10-20) Glucose (70-99) mg/dl POC Glucose (70-99) mg/dl Calcium (8.5-10.1) mg/dl Phosphorus (2.5-4.9) mg/dl Magnesium (1.8-2.4) mg/dl Total Bilirubin (0.2-1) mg/dl AST (15-37) U/L ALT (12-78) U/L Alkaline Phosphatase (45-117) U/L Total Protein (6.4-8.2) gm/dl Albumin (3.4-5.0) gm/dl Globulin (2.5-4.0) gm/dl Albumin/Globulin Ratio (0.9-2) Urine Color Urine Appearance (Clear) Urine pH (4.5-7.5) Ur Specific [place] (1.000-1.030) Urine Protein (Negative) Urine Glucose (UA) (Negative) Urine Ketones (Negative) Urine Blood (Negative) Urine Nitrite (Negative) Urine Bilirubin (Negative) Urine Urobilinogen (Negative) Ur Leukocyte Esterase (Negative) Urine WBC (Auto) (0-5) /hpf Urine RBC (Auto) (0-4) /hpf U Hyaline Cast (Auto) (0-5) /lpf U Epithel Cells (Auto) (0-5) /lpf Urine Bacteria (Auto) (Negative) Medications Administered Current Inpatient Medications Acetaminophen (Acetaminophen 325 Mg Tab) 650 mg PO Q4H PRN PRN Reason: Pain or Fever Stop: 05/28/20 13:42 Last Admin: 05/01/20 16:35 Dose: 650 mg Documented by: Al Hydrox/Mg Hydrox/Simethicone (Aluminum/Magnesium Susp 30 Ml Udc) 15 ml PO Q4H PRN PRN Reason: Dyspepsia Stop: 05/28/20 13:42 Aspirin (Aspirin 81 Mg Ectab) 81 mg PO [facility] Stop: 05/29/20 08:59 Last Admin: 05/02/20 07:37 Dose: 81 mg Documented by: Diltiazem HCl (Diltiazem Hcl 120 Mg Er Cap) 240 mg PO [facility] Stop: 05/31/20 08:59 Last Admin: 05/02/20 07:37 Dose: Not Given Documented by: Ergocalciferol (Ergocalciferol 50,000 Units 1250 Mcg Cap) 50,000 units PO Vargas@0900 [facility] Stop: 06/04/20 08:59 Escitalopram Oxalate (Escitalopram Oxalate 20 Mg Tab) 20 mg PO [facility] Stop: 05/31/20 08:59 Last Admin: 05/02/20 07:38 Dose: 20 mg Documented by: Ferrous Sulfate (Ferrous Sulfate 325 Mg Tab) [facility] Stop: 05/29/20 08:59 Last Admin: 05/02/20 07:37 Dose: 325 mg Documented by: Furosemide (Furosemide 40 Mg Tab) [facility] [place] Stop: 05/31/20 08:59 Last Admin: 05/02/20 07:38 Dose: 40 mg Documented by: Gabapentin (Gabapentin 300 Mg Cap) 300 mg PO QDD [facility] Stop: 05/28/20 17:59 Last Admin: 05/01/20 16:36 Dose: 300 mg Documented by: Gabapentin (Gabapentin 600 Mg Tab) 600 mg PO QAM [facility] Stop: 05/29/20 08:59 Last Admin: 05/02/20 09:04 Dose: 600 mg Documented by: Remdesivir 100 mg/ Sodium (Chloride) 250 mls @ 250 mls/hr IV Q24H [facility]; Protocol Stop: 05/02/20 18:59 Last Infusion: 05/01/20 18:38 Dose: Infused Documented by: Prochlorperazine 10 mg/ (Syringe) 10 mls @ 5 mls/min IV Q6H PRN PRN Reason: Nausea And Vomiting Stop: 05/28/20 16:23 Dexamethasone Sodium Phosphate (6 mg/ Syringe) 1.5 mls @ 1 mls/min IV DAILY [facility] Stop: 05/29/20 08:59 Last Admin: 05/02/20 07:37 Dose: 1 mls/min Documented by: Ceftriaxone Sodium 2,000 mg/ (Dextrose) 70 mls @ 100 mls/hr IV Q24H [facility]; Protocol Stop: 05/11/20 17:59 Last Infusion: 05/01/20 18:39 Dose: Infused Documented by: Levothyroxine Sodium (Levothyroxine Sodium 88 Mcg Tablet) 88 mcg PO DAILYBB [facility] Stop: 05/29/20 06:29 Last Admin: 05/02/20 05:16 Dose: 88 mcg Documented by: Magnesium Hydroxide (Magnesium Hydroxide Susp 30 Ml Udc) 30 ml PO Q12H PRN PRN Reason: Constipation Stop: 05/28/20 13:42 Magnesium Oxide (Magnesium Oxide 400 Mg Tab) 400 mg PO BID [facility] Stop: 05/28/20 20:59 Last Admin: 05/02/20 07:38 Dose: 400 mg Documented by: Metoprolol Succinate (Metoprolol Succ 50mg Ext Rel Tab) 100 mg PO BID [facility] Stop: 05/28/20 20:59 Last Admin: 05/02/20 07:40 Dose: Not Given Documented by: Nitroglycerin (Nitroglycerin Sl 0.4 Mg/Tab Tab) 0.4 mg SL UD PRN PRN Reason: Chest Pain Stop: 05/28/20 13:42 Ondansetron HCl (Ondansetron Inj 2 Mg/Ml 2 Ml Vial) 4 mg IV Q6H PRN PRN Reason: Nausea Stop: 05/28/20 13:42 Last Admin: 04/30/20 14:55 Dose: 4 mg Documented by: Pantoprazole Sodium (Pantoprazole 40 Mg Tab) 40 mg PO DAILY PRN PRN Reason: Gi Upset Stop: 05/28/20 16:23 Polyethylene Glycol (Polyethylene (Miralax) 17 Gm Pack) 17 gm PO DAILY PRN PRN Reason: Constipation Stop: 05/28/20 13:42 Potassium Chloride (Potassium Chloride Crtab 20 Meq Tabcr) 20 meq PO QAM [facility] Stop: 05/31/20 08:59 Last Admin: 05/02/20 07:38 Dose: 20 meq Documented by: Rivaroxaban (Rivaroxaban 20 Mg Tab) 20 mg PO DAILY@18 [facility] Stop: 05/28/20 17:59 Last Admin: 05/01/20 17:45 Dose: 20 mg Documented by: Sodium Chloride (Sodium Chloride 0.9% 10ml Flush) 30 ml IV Q24H [facility] Stop: 05/02/20 18:01 Last Admin: 05/01/20 18:38 Dose: 30 ml Documented by: Trazodone HCl (Trazodone Hcl 50 Mg Tab) 150 mg PO QPM [facility] Stop: 05/28/20 20:59 Last Admin: 05/01/20 23:03 Dose: 150 mg Documented by:
[2020-05-02] MEDS: ONDANSETRON INJ 2 MG/ML 2 ML VIAL IV PRN (14:54)
[2020-05-02] MEDS: GABAPENTIN 300 MG CAP PO SCH (16:03)
[2020-05-02] MEDS: cefTRIAXone SODIUM 2,000 MG in DEXTROSE 5% 50 ML IV SCH (17:43)
[2020-05-02] MEDS: REMDESIVIR 100 MG in SODIUM CHLORIDE 0.9% 230 ML IV SCH (17:43)
[2020-05-02] MEDS: SODIUM CHLORIDE 0.9% 10ML FLUSH IV SCH (18:14)
[2020-05-02] MEDS: RIVAROXABAN 20 MG TAB PO SCH (18:36)
[2020-05-02] MEDS: traZODone HCL 50 MG TAB PO SCH (21:36)
[2020-05-03] MEDS: LEVOTHYROXINE SODIUM 88 MCG TABLET PO SCH (06:07)
[2020-05-03 06:24] LABS: Hematocrit (blood only) 40.6 % (42-52); Hemoglobin 12.6 g/dL (14.0-18.0); Mean Corpuscular Hemoglobin 23.9 pg (25-34); Mean Corpuscular Volume 76.9 fL (80-100); Platelet Count 236 K/uL (130-400); RDW Coefficient of Variation 16.7 % (11.5-14.5); RDW Standard Deviation 46.5 fL (36.4-46.3); Red Blood Count 5.28 M/uL (4.7-6.1); White Blood Count 7.14 K/uL (4.8-10.8)
[2020-05-03 07:06] LABS: Albumin Globulin Ratio 0.9 (0.9-2); Albumin Level 3.1 gm/dl (3.4-5.0); BUN Creatinine Ratio 18.4 (10-20); Bilirubin,Total 0.5 mg/dl (0.2-1); Calcium 8.2 mg/dl (8.5-10.1); Est GFR (African American) 99.2; Est GFR (Non-African American) 85.6; Globulin 3.3 gm/dl (2.5-4.0); Potassium 4.5 mmol/L (3.5-5.1); Total Protein 6.4 gm/dl (6.4-8.2)
[2020-05-03] MEDS: METOPROLOL SUCC 50MG EXT REL TAB PO SCH ×2 (08:02→19:45)
[2020-05-03] MEDS: DEXAMETHASONE SOD PHOSPHATE 6 MG in SYRINGE 0 ML IV SCH (08:02)
[2020-05-03] MEDS: ESCITALOPRAM OXALATE 20 MG TAB PO SCH (08:02)
[2020-05-03] MEDS: ASPIRIN 81 MG ECTAB PO SCH (08:03)
[2020-05-03] MEDS: FUROSEMIDE 40 MG TAB PO SCH (08:03)
[2020-05-03] MEDS: GABAPENTIN 600 MG TAB PO SCH (08:03)
[2020-05-03] MEDS: FERROUS SULFATE 325 MG TAB PO SCH (08:03)
[2020-05-03] MEDS: POTASSIUM CHLORIDE CRTAB 20 MEQ TABCR PO SCH (08:03)
[2020-05-03] MEDS: MAGNESIUM OXIDE 400 MG TAB PO SCH ×2 (08:04→19:45)
--- NOTE | 2020-05-03 11:58 | Hospitalist Progress Note ---
Date of Service May 03, 2020 Assessment & Plan (1) Pneumonia due to COVID-19 virus: Presented with fever, cough, SOB, myalgias, loss of taste and smell. O2 sats as low as 87% RA. Lymphopenic with lymphocyte count of 730. Chest x-ray showed left basilar densities. SARS-CoV-2 PCR positive. Symptoms, lymphopenia, hypoxia suggest probable COVID-19 pneumonia even though not overtly noted on chest x-ray. CT could confirm diagnosis of pneumonia, but would not exchange teller. Receiving dexamethasone and remdesivir- now finished 5 day course of remdesivir. Lymphocytes 730 > 480 Procalcitonin = < 0.05. Follow LFT's. Convalescent plasma considered, but not ordered because of (1) CHF and (2) unlikely benefit given duration of symptoms. Continue remdesivir x 5 days. Continue dexamethasone for up to 10 days or time of discharge, whichever comes first. Bacterial pneumonia unlikely given normal procalcitonin (2) Hypoxia: O2 sats as low as 87% RA. Hypoxia secondary to COVID-19 pneumonia. Received supplemental O2. Now oxygenating well on RA 2 step ordered (3) Coronary artery disease: No anginal symptoms. (4) CHF (congestive heart failure): Chest x-ray showed cardiomegaly and pulmonary vascular congestion. Echo 2016 showed normal LVEF. Pro-BNP 1177. Probable acute on chronic left ventricular diastolic heart failure (HFpEF). Continue furosemide. (5) Paroxysmal atrial fibrillation: Currently rate-controlled atrial fib / flutter. Continue metoprolol, diltiazem, rivaroxaban. (6) Hypertension: Continue metoprolol and diltiazem. (7) Diabetes mellitus type 2, controlled: Cont. to monitor BG while inpt UTI UA concerning for UTI Pt reports urinary frequency and dysuria Rocephin urine cultx - strep species Urinary symptoms resolved on 05/03 (8) Hypothyroidism: Continue levothyroxine. (9) Morbid obesity: Wt 210 kg, BMI 68.4. Heart healthy diet. (10) DVT prophylaxis: On rivaroxaban for atrial fib / flutter. Ambulate. (11) Discharge planning issues: Anticipated discharge to home. Internal Medicine follow-up with Dr. Roman. Admission and Anticipated Discharge Date Admission Date: April 28, 2020 Subjective Pt seen in follow up of covid infection. Reports cough has improved. He does not feel dizzy today, reports he feels much better now. Reports urinary symptoms has resolved. After ambulation pt satting 93% on RA. Pt remains afebrile. Review of Systems Review of Systems: All systems reviewed & are unremarkable except as noted in HPI & below Constitutional: no fever and no chills Respiratory: + cough (productive, improved) and + dyspnea (improved) Cardiovascular: no chest pain and no palpitations Gastrointestinal: no abdominal pain, no nausea and no vomiting Genitourinary: no dysuria Physical Exam Physical Exam: Constitutional: elderly obese male laying in bed, in no acute distress Eyes: sclerae not icteric Respiratory: normal respiratory effort, lungs clear to auscultation Cardiovascular: Rate/Rhythm: regular rate and regular rhythm Extremities: + edema (trace-1+ pretibial edema); no calf tenderness Gastrointestinal (Abdomen): normal bowel sounds, soft, nontender, obese Musculoskeletal: Extremities: no cyanosis Skin: no rashes, warm and dry Neuro/Psych: Orientation: alert and oriented x 3, speech fluent, no facial asymmetry, moves extremities spontaneously Results & Data Results & Data ([facility]) Vital Signs (Past 12 Hours) Vital Signs Temp Pulse Pulse Resp BP Pulse Ox 05/03/20 11:08 36.7 C 70 20 103/63 94 05/03/20 08:00 72 05/03/20 07:45 36.7 C 72 20 115/78 97 05/03/20 03:24 36.6 C 76 18 109/68 95 05/03/20 00:27 76 Laboratory Results 05/03/20 05/03/20 05/02/20 Range/Units 05:46 05:46 20:49 WBC 7.14 (4.8-10.8) K/uL RBC 5.28 (4.7-6.1) M/uL Hgb 12.6 L (14.0-18.0) g/dL Hct 40.6 L (42-52) % MCV 76.9 L (80-100) fL MCH 23.9 L (25-34) pg MCHC 31.0 L (32-36) g/dL RDW Std Deviation 46.5 H (36.4-46.3) fL RDW Coeff of Phu 16.7 H (11.5-14.5) % Plt Count 236 (130-400) K/uL MPV 9.0 (7.4-10.4) fL Sodium 140 (136-145) mmol/L Potassium 4.5 D (3.5-5.1) mmol/L Chloride 103 (98-107) mmol/L Carbon Dioxide 35 H (21-32) mmol/L Anion Gap 2.0 L (3-11) BUN 18 (7-18) mg/dl Creatinine 0.96 (0.6-1.4) mg/dl Est Cr Clr Drug Dosing 142.0 ml/min Est GFR ( Amer) 99.2 Est GFR (Non-Af Amer) 85.6 BUN/Creatinine Ratio 18.4 (10-20) Glucose 101 H (70-99) mg/dl POC Glucose 143 H (70-99) mg/dl Calcium 8.2 L (8.5-10.1) mg/dl Total Bilirubin 0.5 (0.2-1) mg/dl AST 20 (15-37) U/L ALT 27 (12-78) U/L Alkaline Phosphatase 74 (45-117) U/L Total Protein 6.4 (6.4-8.2) gm/dl Albumin 3.1 L (3.4-5.0) gm/dl Globulin 3.3 (2.5-4.0) gm/dl Albumin/Globulin Ratio 0.9 (0.9-2) 05/02/20 Range/Units 16:48 WBC (4.8-10.8) K/uL RBC (4.7-6.1) M/uL Hgb (14.0-18.0) g/dL Hct (42-52) % MCV (80-100) fL MCH (25-34) pg MCHC (32-36) g/dL RDW Std Deviation (36.4-46.3) fL RDW Coeff of Phu (11.5-14.5) % Plt Count (130-400) K/uL MPV (7.4-10.4) fL Sodium (136-145) mmol/L Potassium (3.5-5.1) mmol/L Chloride (98-107) mmol/L Carbon Dioxide (21-32) mmol/L Anion Gap (3-11) BUN (7-18) mg/dl Creatinine (0.6-1.4) mg/dl Est Cr Clr Drug Dosing ml/min Est GFR ( Amer) Est GFR (Non-Af Amer) BUN/Creatinine Ratio (10-20) Glucose (70-99) mg/dl POC Glucose 117 H (70-99) mg/dl Calcium (8.5-10.1) mg/dl Total Bilirubin (0.2-1) mg/dl AST (15-37) U/L ALT (12-78) U/L Alkaline Phosphatase (45-117) U/L Total Protein (6.4-8.2) gm/dl Albumin (3.4-5.0) gm/dl Globulin (2.5-4.0) gm/dl Albumin/Globulin Ratio (0.9-2) Medications Administered Current Inpatient Medications Acetaminophen (Acetaminophen 325 Mg Tab) 650 mg PO Q4H PRN PRN Reason: Pain or Fever Stop: 05/28/20 13:42 Last Admin: 05/01/20 16:35 Dose: 650 mg Documented by: Al Hydrox/Mg Hydrox/Simethicone (Aluminum/Magnesium Susp 30 Ml Udc) 15 ml PO Q4H PRN PRN Reason: Dyspepsia Stop: 05/28/20 13:42 Aspirin (Aspirin 81 Mg Ectab) 81 mg PO [facility] Stop: 05/29/20 08:59 Last Admin: 05/03/20 08:03 Dose: 81 mg Documented by: Diltiazem HCl (Diltiazem Hcl 120 Mg Er Cap) 240 mg PO [facility] Stop: 05/31/20 08:59 Last Admin: 05/03/20 08:03 Dose: 240 mg Documented by: Ergocalciferol (Ergocalciferol 50,000 Units 1250 Mcg Cap) 50,000 units PO Vargas@0900 [facility] Stop: 06/04/20 08:59 Escitalopram Oxalate (Escitalopram Oxalate 20 Mg Tab) 20 mg PO [facility] Stop: 05/31/20 08:59 Last Admin: 05/03/20 08:02 Dose: 20 mg Documented by: Ferrous Sulfate (Ferrous Sulfate 325 Mg Tab) 325 mg PO [facility] Stop: 05/29/20 08:59 Last Admin: 05/03/20 08:03 Dose: 325 mg Documented by: Furosemide (Furosemide 40 Mg Tab) 40 mg PO [facility] Stop: 05/31/20 08:59 Last Admin: 05/03/20 08:03 Dose: 40 mg Documented by: Gabapentin (Gabapentin 300 Mg Cap) 300 mg PO QDD [facility] Stop: 05/28/20 17:59 Last Admin: 05/02/20 16:03 Dose: 300 mg Documented by: Gabapentin (Gabapentin 600 Mg Tab) 600 mg PO QAM [facility] Stop: 05/29/20 08:59 Last Admin: 05/03/20 08:03 Dose: 600 mg Documented by: Prochlorperazine 10 mg/ (Syringe) 10 mls @ 5 mls/min IV Q6H PRN PRN Reason: Nausea And Vomiting Stop: 05/28/20 16:23 Dexamethasone Sodium Phosphate (6 mg/ Syringe) 1.5 mls @ 1 mls/min IV DAILY [facility] Stop: 05/29/20 08:59 Last Admin: 05/03/20 08:02 Dose: 1 mls/min Documented by: Ceftriaxone Sodium 2,000 mg/ (Dextrose) 70 mls @ 100 mls/hr IV Q24H [facility]; P rotocol Stop: 05/11/20 17:59 Last Infusion: 05/02/20 18:25 Dose: Infused Documented by: Levothyroxine Sodium (Levothyroxine Sodium 88 Mcg Tablet) 88 mcg PO DAILYBB [facility] Stop: 05/29/20 06:29 Last Admin: 05/03/20 06:07 Dose: 88 mcg Documented by: Magnesium Hydroxide (Magnesium Hydroxide Susp 30 Ml Udc) 30 ml PO Q12H PRN PRN Reason: Constipation Stop: 05/28/20 13:42 Magnesium Oxide (Magnesium Oxide 400 Mg Tab) 400 mg PO BID [facility] Stop: 05/28/20 20:59 Last Admin: 05/03/20 08:04 Dose: 400 mg Documented by: Metoprolol Succinate (Metoprolol Succ 50mg Ext Rel Tab) 100 mg PO BID [facility] Stop: 05/28/20 20:59 Last Admin: 05/03/20 08:02 Dose: 100 mg Documented by: Nitroglycerin (Nitroglycerin Sl 0.4 Mg/Tab Tab) 0.4 mg SL UD PRN PRN Reason: Chest Pain Stop: 05/28/20 13:42 Ondansetron HCl (Ondansetron Inj 2 Mg/Ml 2 Ml Vial) 4 mg IV Q6H PRN PRN Reason: Nausea Stop: 05/28/20 13:42 Last Admin: 05/02/20 14:54 Dose: 4 mg Documented by: Pantoprazole Sodium (Pantoprazole 40 Mg Tab) 40 mg PO DAILY PRN PRN Reason: Gi Upset Stop: 05/28/20 16:23 Polyethylene Glycol (Polyethylene (Miralax) 17 Gm Pack) 17 gm PO DAILY PRN PRN Reason: Constipation Stop: 05/28/20 13:42 Potassium Chloride (Potassium Chloride Crtab 20 Meq Tabcr) 20 meq PO QAM [facility] Stop: 05/31/20 08:59 Last Admin: 05/03/20 08:03 Dose: 20 meq Documented by: Rivaroxaban (Rivaroxaban 20 Mg Tab) 20 mg PO DAILY@18 [facility] Stop: 05/28/20 17:59 Last Admin: 05/02/20 18:36 Dose: 20 mg Documented by: Trazodone HCl (Trazodone Hcl 50 Mg Tab) 150 mg PO QPM [facility] Stop: 05/28/20 20:59 Last Admin: 05/02/20 21:36 Dose: 150 mg Documented by:
[2020-05-03] MEDS: cefTRIAXone SODIUM 2,000 MG in DEXTROSE 5% 50 ML IV SCH (17:24)
[2020-05-03] MEDS: RIVAROXABAN 20 MG TAB PO SCH (17:24)
[2020-05-03] MEDS: GABAPENTIN 300 MG CAP PO SCH (17:24)
[2020-05-03] MEDS: traZODone HCL 50 MG TAB PO SCH (19:45)
[2020-05-04] MEDS: LEVOTHYROXINE SODIUM 88 MCG TABLET PO SCH (06:14)
[2020-05-04 06:47] LABS: Hematocrit (blood only) 41.7 % (42-52); Hemoglobin 12.7 g/dL (14.0-18.0); Mean Corpuscular Hemoglobin 23.4 pg (25-34); Mean Corpuscular Hgb Conc 30.5 g/dL (32-36); Mean Corpuscular Volume 76.9 fL (80-100); Platelet Count 262 K/uL (130-400); RDW Coefficient of Variation 16.8 % (11.5-14.5); RDW Standard Deviation 46.2 fL (36.4-46.3); Red Blood Count 5.42 M/uL (4.7-6.1); White Blood Count 7.44 K/uL (4.8-10.8)
[2020-05-04 07:24] LABS: BUN Creatinine Ratio 21.3 (10-20); Calcium 8.6 mg/dl (8.5-10.1); Creatinine Clr Calc Pharmacy 145.1 ml/min; Est GFR (African American) 103.1; Est GFR (Non-African American) 88.9; Potassium 4.1 mmol/L (3.5-5.1)
[2020-05-04 07:27] LABS: Albumin Globulin Ratio 0.9 (0.9-2); Bilirubin,Total 0.4 mg/dl (0.2-1); Globulin 3.4 gm/dl (2.5-4.0); Total Protein 6.4 gm/dl (6.4-8.2)
--- NOTE | 2020-05-04 08:16 | Hospitalist Progress Note ---
Date of Service May 04, 2020 Assessment & Plan (1) Pneumonia due to COVID-19 virus: Presented with fever, cough, SOB, myalgias, loss of taste and smell. O2 sats as low as 87% RA. Lymphopenic with lymphocyte count of 730. Chest x-ray showed left basilar densities. SARS-CoV-2 PCR positive. Symptoms, lymphopenia, hypoxia suggest probable COVID-19 pneumonia even though not overtly noted on chest x-ray. CT could confirm diagnosis of pneumonia, but would not change management director. Receiving dexamethasone and remdesivir- now finished 5 day course of remdesivir. Lymphocytes 730 > 480 Procalcitonin = < 0.05. Follow LFT's. Convalescent plasma considered, but not ordered because of (1) CHF and (2) unlikely benefit given duration of symptoms. Continued remdesivir x 5 days. Continued dexamethasone while inpt. Bacterial pneumonia unlikely given normal procalcitonin Clinically pt much improved, no dyspnea, cough improved. Pt no longer hypoxic. Plan to dc home. (2) Hypoxia: O2 sats as low as 87% RA. Hypoxia secondary to COVID-19 pneumonia. Received supplemental O2. Now oxygenating well on RA and also w/ ambulation (3) Coronary artery disease: No anginal symptoms. (4) CHF (congestive heart failure): Chest x-ray showed cardiomegaly and pulmonary vascular congestion. Echo 2017 showed normal LVEF. Pro-BNP 1177. Probable acute on chronic left ventricular diastolic heart failure (HFpEF). Continue furosemide. (5) Paroxysmal atrial fibrillation: Currently rate-controlled atrial fib / flutter. Continue metoprolol, diltiazem, rivaroxaban. (6) Hypertension: Continue metoprolol and diltiazem. (7) Diabetes mellitus type 2, controlled: Cont. to monitor BG while inpt UTI UA concerning for UTI Pt reports urinary frequency and dysuria Rocephin Urine cultx - now positive for Enterococcus faecalis (cultx results not available on discharge, pt was called that Abx has changed and Rx sent to his pharmacy) Urinary symptoms resolved on 05/03 (8) Hypothyroidism: Continue levothyroxine. (9) Morbid obesity: Wt 210 kg, BMI 68.4. Heart healthy diet. (10) DVT prophylaxis: On rivaroxaban for atrial fib / flutter. Ambulate. (11) Discharge planning issues: Anticipated discharge to home. Internal Medicine follow-up with Dr. Roman. Admission and Anticipated Discharge Date Admission Date: April 28, 2020 Subjective Pt seen in follow up of covid infection. Reports cough has improved. He does not feel dizzy today, reports he feels much better now. Reports urinary symptoms has resolved. He is inquiring about going home. He is satting 93% on RA. After ambulation pt satting 93% on RA. Pt remains afebrile. Review of Systems Review of Systems: All systems reviewed & are unremarkable except as noted in HPI & below Constitutional: no fever and no chills Respiratory: + cough (productive, improved) and + dyspnea (improved) Cardiovascular: no chest pain and no palpitations Gastrointestinal: no abdominal pain, no nausea and no vomiting Genitourinary: no dysuria Physical Exam Physical Exam: Constitutional: elderly obese male laying in bed, in no acute distress Eyes: sclerae not icteric Respiratory: normal respiratory effort, lungs clear to auscultation, no wheezing Cardiovascular: Rate/Rhythm: regular rate and regular rhythm Extremities: + edema (trace-1+ pretibial edema); no calf tenderness Gastrointestinal (Abdomen): normal bowel sounds, soft, nontender, obese Musculoskeletal: Extremities: no cyanosis Skin: no rashes, warm and dry Neuro/Psych: Orientation: alert and oriented x 3, speech fluent, no facial asymmetry, moves extremities spontaneously Results & Data Results & Data ([facility]) Vital Signs (Past 12 Hours) Vital Signs Temp Pulse Pulse Resp BP Pulse Ox 05/04/20 08:11 36.7 C 68 20 107/73 93 05/04/20 02:52 36.6 C 70 19 104/77 92 05/03/20 23:39 36.4 C L 71 19 113/66 92 05/03/20 23:16 51 L Laboratory Results 05/04/20 05/04/20 Range/Units 05:52 05:52 WBC 7.44 (4.8-10.8) K/uL RBC 5.42 (4.7-6.1) M/uL Hgb 12.7 L (14.0-18.0) g/dL Hct 41.7 L (42-52) % MCV 76.9 L (80-100) fL MCH 23.4 L (25-34) pg MCHC 30.5 L (32-36) g/dL RDW Std Deviation 46.2 (36.4-46.3) fL RDW Coeff of Phu 16.8 H (11.5-14.5) % Plt Count 262 (130-400) K/uL MPV 9.0 (7.4-10.4) fL Sodium 138 (136-145) mmol/L Potassium 4.1 (3.5-5.1) mmol/L Chloride 101 (98-107) mmol/L Carbon Dioxide 35 H (21-32) mmol/L Anion Gap 2.0 L (3-11) BUN 20 H (7-18) mg/dl Creatinine 0.93 (0.6-1.4) mg/dl Est Cr Clr Drug Dosing 145.1 ml/min Est GFR ( Amer) 103.1 Est GFR (Non-Af Amer) 88.9 BUN/Creatinine Ratio 21.3 H (10-20) Glucose 95 (70-99) mg/dl Calcium 8.6 (8.5-10.1) mg/dl Total Bilirubin 0.4 (0.2-1) mg/dl AST 21 (15-37) U/L ALT 28 (12-78) U/L Alkaline Phosphatase 71 (45-117) U/L Total Protein 6.4 (6.4-8.2) gm/dl Albumin 3.0 L (3.4-5.0) gm/dl Globulin 3.4 (2.5-4.0) gm/dl Albumin/Globulin Ratio 0.9 (0.9-2) Medications Administered Current Inpatient Medications Acetaminophen (Acetaminophen 325 Mg Tab) 650 mg PO Q4H PRN PRN Reason: Pain or Fever Stop: 05/28/20 13:42 Last Admin: 05/01/20 16:35 Dose: 650 mg Documented by: Al Hydrox/Mg Hydrox/Simethicone (Aluminum/Magnesium Susp 30 Ml Udc) 15 ml PO Q4H PRN PRN Reason: Dyspepsia Stop: 05/28/20 13:42 Aspirin (Aspirin 81 Mg Ectab) 81 mg PO QAM ABDI Stop: 05/29/20 08:59 Last Admin: 05/03/20 08:03 Dose: 81 mg Documented by: Diltiazem HCl (Diltiazem Hcl 120 Mg Er Cap) 240 mg PO QAM [facility] Stop: 05/31/20 08:59 Last Admin: 05/03/20 08:03 Dose: 240 mg Documented by: Ergocalciferol (Ergocalciferol 50,000 Units 1250 Mcg Cap) 50,000 units PO Vargas@0900 [facility] Stop: 06/04/20 08:59 Escitalopram Oxalate (Escitalopram Oxalate 20 Mg Tab) 20 mg PO QAM [facility] Stop: 05/31/20 08:59 Last Admin: 05/03/20 08:02 Dose: 20 mg Documented by: Ferrous Sulfate (Ferrous Sulfate 325 Mg Tab) 325 mg PO QAM [facility] Stop: 05/29/20 08:59 Last Admin: 05/03/20 08:03 Dose: 325 mg Documented by: Furosemide (Furosemide 40 Mg Tab) 40 mg PO QAM [facility] Stop: 05/31/20 08:59 Last Admin: 05/03/20 08:03 Dose: 40 mg Documented by: Gabapentin (Gabapentin 300 Mg Cap) 300 mg PO QDD [facility] Stop: 05/28/20 17:59 Last Admin: 05/03/20 17:24 Dose: 300 mg Documented by: Gabapentin (Gabapentin 600 Mg Tab) 600 mg PO QAM [facility] Stop: 05/29/20 08:59 Last Admin: 05/03/20 08:03 Dose: 600 mg Documented by: Prochlorperazine 10 mg/ (Syringe) 10 mls @ 5 mls/min IV Q6H PRN PRN Reason: Nausea And Vomiting Stop: 05/28/20 16:23 Dexamethasone Sodium Phosphate (6 mg/ Syringe) 1.5 mls @ 1 mls/min IV DAILY [facility] Stop: 05/29/20 08:59 Last Admin: 05/03/20 08:02 Dose: 1 mls/min Documented by: Ceftriaxone Sodium 2,000 mg/ (Dextrose) 70 mls @ 100 mls/hr IV Q24H [facility]; Protocol Stop: 05/11/20 17:59 Last Infusion: 05/03/20 18:14 Dose: Infused Documented by: Levothyroxine Sodium (Levothyroxine Sodium 88 Mcg Tablet) 88 mcg PO DAILYBB [facility] Stop: 05/29/20 06:29 Last Admin: 05/04/20 06:14 Dose: 88 mcg Documented by: Magnesium Hydroxide (Magnesium Hydroxide Susp 30 Ml Udc) 30 ml PO Q12H PRN PRN Reason: Constipation Stop: 05/28/20 13:42 Magnesium Oxide (Magnesium Oxide 400 Mg Tab) 400 mg PO BID ABDI Stop: 05/28/20 20:59 Last Admin: 05/03/20 19:45 Dose: 400 mg Documented by: Metoprolol Succinate (Metoprolol Succ 50mg Ext Rel Tab) 100 mg PO BID ABDI Stop: 05/28/20 20:59 Last Admin: 05/03/20 19:45 Dose: 100 mg Documented by: Nitroglycerin (Nitroglycerin Sl 0.4 Mg/Tab Tab) 0.4 mg SL UD PRN PRN Reason: Chest Pain Stop: 05/28/20 13:42 Ondansetron HCl (Ondansetron Inj 2 Mg/Ml 2 Ml Vial) 4 mg IV Q6H PRN PRN Reason: Nausea Stop: 05/28/20 13:42 Last Admin: 05/02/20 14:54 Dose: 4 mg Documented by: Pantoprazole Sodium (Pantoprazole 40 Mg Tab) 40 mg PO DAILY PRN PRN Reason: Gi Upset Stop: 05/28/20 16:23 Polyethylene Glycol (Polyethylene (Miralax) 17 Gm Pack) 17 gm PO DAILY PRN PRN Reason: Constipation Stop: 05/28/20 13:42 Potassium Chloride (Potassium Chloride Crtab 20 Meq Tabcr) 20 meq PO QAM [facility] Stop: 05/31/20 08:59 Last Admin: 05/03/20 08:03 Dose: 20 meq Documented by: Rivaroxaban (Rivaroxaban 20 Mg Tab) 20 mg PO DAILY@18 [facility] Stop: 05/28/20 17:59 Last Admin: 05/03/20 17:24 Dose: 20 mg Documented by: Trazodone HCl (Trazodone Hcl 50 Mg Tab) 150 mg PO QPM [facility] Stop: 05/28/20 20:59 Last Admin: 05/03/20 19:45 Dose: 150 mg Documented by:
[2020-05-04] MEDS: ASPIRIN 81 MG ECTAB PO SCH (08:39)
[2020-05-04] MEDS: GABAPENTIN 600 MG TAB PO SCH (08:39)
[2020-05-04] MEDS: ESCITALOPRAM OXALATE 20 MG TAB PO SCH (08:39)
[2020-05-04] MEDS: POTASSIUM CHLORIDE CRTAB 20 MEQ TABCR PO SCH (08:39)
[2020-05-04] MEDS: FERROUS SULFATE 325 MG TAB PO SCH (08:40)
[2020-05-04] MEDS: METOPROLOL SUCC 50MG EXT REL TAB PO SCH (08:40)
[2020-05-04] MEDS: FUROSEMIDE 40 MG TAB PO SCH (08:40)
[2020-05-04] MEDS: MAGNESIUM OXIDE 400 MG TAB PO SCH (08:41)
[2020-05-04] MEDS: DEXAMETHASONE SOD PHOSPHATE 6 MG in SYRINGE 0 ML IV SCH (09:17)
--- NOTE | 2020-05-04 13:40 | Discharge Summary ---
Date of Service May 04, 2020 Admission HPI Per Admitting Provider This is a 60 yo male followed by Dr Roman for internal medicine . His past medical hx includes moderate coronary artery disease ( 50% LAD , 40% RCA stenosis ) per cardiac cath 2013 , on medical management , hx of PHYLLIS on CPAP at night , Hx of paroxysmal afib on anticoagulation with Xarelto . HTN -presents to ER with complain of SOB , chest pain , cough , generalized body aches and fatigue and also loss of taste and smell . no fever at home , felt feverish ,and chills . His symptoms started almost a week back . pt denies of any known exposure to COVID -19 . on arrival to ER pt was hypoxic 88% in RA -improved to 95% with 2 L supplemental 02 was hypotensive BP 99/76. improved after IV fluid Cxray shows : trace pleural effusions with minimal fluid layering along the minor fissure . Minimal Left basilar opacities favor atelectasis Admission Exam Per Admitting Provider Constitutional: WD/WN, vitals as above no acute distress Eyes: PERRL, conjunctivae normal, anicteric sclerae ENMT: external ear and nose normal, oropharynx normal Neck: trachea midline, no thyromegaly Respiratory: + cough Auscultation: + diminished lung sounds Cardiovascular: RRR, no murmur, no edema Gastrointestinal (Abdomen): Percussion/Palpation: abdomen soft; abdomen nontender Musculoskeletal: no cyanosis or clubbing, extremities motor strength 5/5 Skin: no rashes, warm and dry Neurologic: PERRL, EOMI, accommodation nl, no face palsy, no dysarthria Psychiatric: A+Ox3, euthymic affect Principal Diagnosis Pneumonia due to COVID-19 virus Hypoxia UTI Discharge Exam Constitutional: elderly obese male laying in bed, in no acute distress Eyes: sclerae not icteric Respiratory: normal respiratory effort, lungs clear to auscultation, no wheezing Cardiovascular: Rate/Rhythm: regular rate and regular rhythm Extremities: + edema (trace-1+ pretibial edema); no calf tenderness Gastrointestinal (Abdomen): normal bowel sounds, soft, nontender, obese Musculoskeletal: Extremities: no cyanosis Skin: no rashes, warm and dry Neuro/Psych: Orientation: alert and oriented x 3, speech fluent, no facial asymmetry, moves extremities spontaneously Discharge Data Allergies Allergy/AdvReac Type Severity Reaction Status Date / Time No Known Allergies Allergy ` Verified 04/28/20 14:04 Consultations 04/28/20 13:31 ED Decision to Admit Stat 04/28/20 13:47 Consult Case Management - Discharge Planning Routine Hospital Course (1) Pneumonia due to COVID-19 virus: Presented with fever, cough, SOB, myalgias, loss of taste and smell. O2 sats as low as 87% RA. Lymphopenic with lymphocyte count of 730. Chest x-ray showed left basilar densities. SARS-CoV-2 PCR positive. Symptoms, lymphopenia, hypoxia suggest probable COVID-19 pneumonia even though not overtly noted on chest x-ray. CT could confirm diagnosis of pneumonia, but would not manager of change. Receiving dexamethasone and remdesivir- now finished 5 day course of remdesivir. Lymphocytes 730 > 480 Procalcitonin = < 0.05. Follow LFT's. Convalescent plasma considered, but not ordered because of (1) CHF and (2) unlikely benefit given duration of symptoms. Continued remdesivir x 5 days. Continued dexamethasone while inpt. Bacterial pneumonia unlikely given normal procalcitonin Clinically pt much improved, no dyspnea, cough improved. Pt no longer hypoxic. Plan to dc home. (2) Hypoxia: O2 sats as low as 87% RA. Hypoxia secondary to COVID-19 pneumonia. Received supplemental O2. Now oxygenating well on RA and also w/ ambulation (3) Coronary artery disease: No anginal symptoms. (4) CHF (congestive heart failure): Chest x-ray showed cardiomegaly and pulmonary vascular congestion. Echo 2017 showed normal LVEF. Pro-BNP 1177. Probable acute on chronic left ventricular diastolic heart failure (HFpEF). Continue furosemide. (5) Paroxysmal atrial fibrillation: Currently rate-controlled atrial fib / flutter. Continue metoprolol, diltiazem, rivaroxaban. (6) Hypertension: Continue metoprolol and diltiazem. (7) Diabetes mellitus type 2, controlled: Cont. to monitor BG while inpt UTI UA concerning for UTI Pt reports urinary frequency and dysuria Rocephin Urine cultx - now positive for Enterococcus faecalis (cultx results not available on discharge, pt was called that Abx has changed and Rx sent to his pharmacy) Urinary symptoms resolved on 05/03 (8) Hypothyroidism: Continue levothyroxine. (9) Morbid obesity: Wt 210 kg, BMI 68.4. Heart healthy diet. (10) DVT prophylaxis: On rivaroxaban for atrial fib / flutter. Ambulate. (11) Discharge planning issues: Anticipated discharge to home. Internal Medicine follow-up with Dr. Roman. Total Time Total Time Spent Total Time Spent (In Minutes): 40 Total Time Includes: Examination of the Patient, Discharge Planning and Medication Reconciliation Discharge Plan Discharge Items Patient Disposition: Home - Self-Care Reason For Visit: FEVER AND COUGH Discharge Diagnosis: Pneumonia due to COVID-19 virus Hypoxia UTI Activity: Per Instructions section Non-emergency contact: Primary Care Provider Call non-emergency contact if: you have any medication questions and your symptoms worsen Follow-up/Referrals: Sandi Roman [Primary Care Provider] - Diet: Heart Healthy Addclarisse Attending Provider Instructions: Please contact your family physician on Wednesday, May 06, and set up telemedicine follow-up visit. Your urine culture is still pending, results will be available to your family doctor, please discuss with him/her the results. Continue antibiotic as prescribed. Please read information regarding COVID-19 infection in detail below. It is strongly recommended that you continue social distancing due to known infection of COVID-19. Addtl Computer Mechanic Provider Instructions: Home Isolation COVID-19 Instructions The following information about Home Isolation is from the CDC Website: https://www.cdc.gov/coronavirus/2019-ncov/hcp/hwbmtjma-kfvcoln-yoypxy.html Stay home except to get medical care People who are mildly ill with COVID-19 are able to isolate at home during their illness. You should restrict activities outside your home, except for getting medical care. Do not go to work, school, or public areas. Avoid using public transportation, ride-sharing, or taxis. Separate yourself from other people and animals in your home People: As much as possible, you should stay in a specific room and away from other people in your home. Also, you should use a separate bathroom, if available. Animals: You should restrict contact with pets and other animals while you are sick with COVID-19, just like you would around other people. Although there have not been reports of pets or other animals becoming sick with COVID-19, it is sti ll recommended that people sick with COVID-19 limit contact with animals until more information is known about the virus. When possible, have another member of your household care for your animals while you are sick. If you are sick with COVID-19, avoid contact with your pet, including petting, snuggling, being kissed or licked, and sharing food. If you must care for your pet or be around animals while you are sick, wash your hands before and after you interact with pets and wear a face mask. Call ahead before visiting your doctor If you have a medical appointment, call the healthcare provider and tell them that you have or may have COVID-19. This will help the healthcare providers office take steps to keep other people from getting infected or exposed. Wear a face mask You should wear a face mask when you are around other people (e.g., sharing a room or vehicle) or pets and before you enter a healthcare providers office. If you are not able to wear a face mask (for example, because it causes trouble breathing), then people who live with you should not stay in the same room with you, or they should wear a face mask if they enter your room. Cover your coughs and sneezes Cover your mouth and nose with a tissue when you cough or sneeze. Throw used tissues in a lined trash can. Immediately wash your hands with soap and water for at least 20 seconds or, if soap and water are not available, clean your hands with an alcohol-based hand speech communication professor that contains at least 60% alcohol. Clean your hands often Wash your hands often with soap and water for at least 20 seconds, especially after blowing your nose, coughing, or sneezing; going to the bathroom; and before eating or preparing food. If soap and water are not readily available, use an alcohol-based hand speech communication professor with at least 60% alcohol, covering all surfaces of your hands and rubbing them together until they feel dry. Soap and water are the best option if hands are visibly dirty. Avoid touching your eyes, nose, and mouth with unwashed hands. Avoid sharing personal household items You should not share dishes, drinking glasses, cups, eating utensils, towels, or bedding with other people or pets in your home. After using these items, they should be washed thoroughly with soap and water. Clean all high-touch surfaces everyday High touch surfaces include counters, tabletops, doorknobs, bathroom fixtures, toilets, phones, keyboards, tablets, and bedside tables. Also, clean any surfaces that may have blood, stool, or body fluids on them. Use a household cleaning spray or wipe, according to the label instructions. Labels contain instructions for safe and effective use of the cleaning product including precautions you should take when applying the product, such as wearing gloves and making sure you have good ventilation during use of the product. Monitor your symptoms Seek prompt medical attention if your illness is worsening (e.g., difficulty breathing).Beforeseeking care, call your healthcare provider and tell them that you have, or are being evaluated for, COVID-19. Put on a face mask before you enter the facility. These steps will help the healthcare providers office to keep other people in the office or waiting room from getting infected or exposed. Ask your healthcare provider to call the local or state health department. Persons who are placed under active monitoring or facilitated self- monitoring should follow instructions provided by their local health department or occupational health professionals, as appropriate. When working with your local health department check their available hours. If you have a medical emergency and need to call 911, notify the dispatch personnel that you have, or are being evaluated for COVID-19. If possible, put on a face mask before emergency medical services arrive. Discontinuing home isolation Patients with confirmed COVID-19 should remain under home isolation precautions until the risk of secondary transmission to others is thought to be low. The decision to discontinue home isolation precautions should be made on a [id number] basis, in consultation with healthcare providers and state and [facility] hospital health departments. Coronavirus disease 2019 (COVID-19) is a virus that causes a respiratory illness. It is caused by a coronavirus called 2019 novel coronavirus (2019- nCoV). There are many types of coronavirus. Coronaviruses are a very common cause of bronchitis. They may sometimes cause lung infection(pneumonia). Symptoms can range from mild to severe respiratory illness. These viruses are also foundin some animals. COVID-19 was first found in people in [facility], in late 2019. In 2020, several cases of COVID-19 have been confirmed in the [place] Public health officials are working to find the source. How the virus spreads is not yet fully known. It may be spread through droplets of fluid that a person coughs or sneezes into the air. It may be spread if you touch a surface with virus on it, such as a handle or object, and then touch your mouth. What are the symptoms of COVID-19? Some people have no symptoms or mild symptoms. Symptoms may appear 2 to 14 days after contact with the virus. Symptoms can include: Fever Coughing Trouble breathing What are possible complications from COVID-19? In many cases, this virus can cause infection (pneumonia) in both lungs. In some cases, this can cause . How is COVID-19 diagnosed? Your healthcare provider will ask about your symptoms. He or she will also ask about your recent travel and contact with sick people. Testing for the virus is only done through the [facility]. If yourhealthcare provider thinks you may have COVID- 19, he or she will work with your local health department and the CDC on testing. Follow all instructions from your healthcare provider. COVID-19 is diagnosed by: Nasal and throat swab. A cotton-tipped swab is wiped inside your nose or throat. This is done to check for viruses in your nasal mucus. Sputum culture. A small sample of mucus coughed from your lungs (sputum) is collected if you have a cough. It is checked for the virus. How is COVID-19 treated? There is currently no medicine to treat the virus. Treatment is done to help your body while it fights the virus. This is known as supportive care. Supportive care may include: Pain medicine. These include acetaminophen and ibuprofen. They are used to help ease pain and reduce fever. Bed rest. This helps your body fight the illness. For severe illness, you may need to stay in the hospital. Care during severe illness may include: IV (intravenous) fluids.These are given through a vein to help keep your body hydrated. Oxygen. Supplemental oxygen or ventilation with a breathing machine (ventilator) may be given. This is done to keep enough oxygen in your body. Are you at risk for COVID-19? If youve been to a place where people have been sick with this virus, you are at risk for infection. You are at risk if you: Recently traveled to an affected area Had contact with a sick person who recently traveled to this area Had contact with a person who was diagnosed with COVID-19 How can COVID-19 be prevented? There is no vaccine yet. The best prevention is to not have contact with the virus. The CDC advises that people should not travel to areas where there are COVID-19 outbreaks right now for any reason that is not urgent. To help prevent spreading the infection, wash your hands often, or use an alcohol-basedhand speech communication professor. If you are in an area with COVID-19: Wash your hands often. Or use an alcohol-based hand speech communication professor often. Only touch your eyes, nose, or mouth with clean hands. Dont have contact with people who are sick. Follow local instructions about being in public. For example, you may be told to not use public transport for a period of time. Stay away from markets that have live or animals. Wash your hands after touching any animals. Don't touch animals that may be sick. Dont share eating or drinking tools with sick people. Dont kiss someone who is sick. Clean surfaces often with disinfectant. If you were in an area with COVID-19 in the last 14 days: Call your healthcare provider. He or she can talk with local health staff to see what action may be needed. Follow all instructions from your provider. Take your temperature every morning and evening for at least 14 days. This is to check for fever. Keep a record of the readings. Keep watch for symptoms of the virus. Tell your provider right away if you have symptoms. If you were in an area with COVID-19 and have a fever or other symptoms: Dont panic. Keep in mind that other illnesses can cause similar symptoms. Stay away from work, school, and public places. Limit physical contact with family members. Don't kiss anyone or share eating or drinking utensils. Clean surfaces you touch with disinfectant. This is to help prevent the virus from spreading. Call your healthcare provider. Explain that you have been exposed to COVID-19 and have symptoms. Do this before going to any hospital. Wait for instructions. Keep in mind that healthcare staff may wear protective equipment such as masks, gowns, gloves, and eye protection. You may be put in a separate room. This is to prevent the possible virus from spreading. Tell the healthcare staff about recent travel. This includes local travel on public transport. Staff may need to find other people you have been in contact with. Follow all instructions the healthcare staff give you. If you have been diagnosed with COVID-19 Follow all instructions from your healthcare provider. Dont leave your home, except to get medical care. Call your healthcare providers office before going. They can prepare and give you instructions. This will help prevent the virus from spreading. Dont go to work, school, or public areas. Dont use public transport or taxis. Stay away from other people in your home. Have them wear face masks around you. Dont share household items or food. Wear a face mask if you can. This includes at home or in a medical facility. Cover your face with a tissue when you cough or sneeze. Throw the tissue away. Wash your hands. Wash your hands often. Caregivers should: Follow all instructions from healthcare staff. Wear a face mask and protective clothing as advised. Wash hands often. Keep track of the sick persons symptoms. Clean surfaces, fabrics, and laundry thoroughly. Keep other people away from the sick person. When to call your healthcare provider Call your healthcare provider: If youve recently traveled and have symptoms If you have been diagnosed with COVID-19 and your symptoms are worse To learn more To find out more about COVID-19, visit the CDC website at www.cdc.gov/coronavirus/2019-ncov/index.html. The [employer]. [address] [place] [address]. All rights reserved. This information is not intended as a substitute for professional medical care. Always follow your healthcare professional's instructions. This information has been adapted from [employer] Pending Studies at Discharge: Yes Stand-Alone Forms: [facility], Smoking Cessation Medications and DC Order Prescriptions: New cefuroxime axetil 250 mg tablet 250 mg PO BID 2 Days Qty: 4 RF: 0 aspirin 81 mg Tablet,Delayed Release (Dr/Ec) 81 mg PO QAM 30 Days Qty: 30 RF: 0 ampicillin 500 mg capsule 500 mg PO Q6H 5 Days Qty: 20 RF: 0 Continued potassium chloride [Klor-Con] 20 mEq packet 20 meq PO HS RF: 0 furosemide [Lasix] 40 mg tablet 40 mg PO QAM RF: 0 gabapentin 300 mg capsule 300 mg PO TID RF: 0 ferrous sulfate [iron] 325 mg (65 mg iron) Tablet 325 mg PO QAM RF: 0 ibuprofen [Advil] 200 mg Tablet 200 mg PO Q6H PRN (Reason: Pain) RF: 0 levothyroxine 88 mcg tablet 88 mcg PO QAM RF: 0 trazodone 50 mg Tablet 150 mg PO QPM RF: 0 meloxicam 15 mg Tablet 15 mg PO QAM RF: 0 metoprolol succinate 100 mg Tablet Extended Release 24 Hr 100 mg PO BID RF: 0 pantoprazole 40 mg Tablet,Delayed Release (Dr/Ec) 40 mg PO DAILY PRN (Reason: Gi Upset) RF: 0 ergocalciferol (vitamin D2) [Vitamin D2] 50,000 unit Capsule 50,000 unit PO WK RF: 0 escitalopram oxalate 20 mg Tablet 20 mg PO QAM RF: 0 diltiazem HCl 240 mg Tablet Extended Release 24 Hr 240 mg PO QAM RF: 0 diclofenac sodium 1 % Gel 2 g TOPICAL QID RF: 0 Xarelto 20 mg Tablet 20 mg PO PM RF: 0 magnesium oxide 400 mg magnesium Tablet 400 mg PO BID RF: 0 naproxen sodium [Aleve] 220 mg Capsule 220 mg PO Q12H PRN (Reason: Pain) RF: 0 Discharge Orders: Discharge Order (Routine); Ordered 05/04/20 Ordered By: Lang Rothman Admission Data Admit Date/Time: 04/28/20 13:44 Attending Provider: Lang Rothman Admit Provider: Mercedes Kumari Primary Care Provider: Sandi Roman Other Providers: Mercedes Kumari ; Zhang Esquivel Other Interventions: Discharge Summary Assessment (RN) Last Done: 05/04/20 10:27
[2020-05-05] MEDS ORDERED: ERGOCALCIFEROL 50,000 UNITS 1250 MCG CAP PO SCH (09:00)
== END 2020-05-04 11:16 | disposition home or self-care (01) | DRG 177 ==
LOC: ED 10:57 → 2S 13:44 → SUATTDRO 13:44 → 2S 15:56

== ENCOUNTER 2021-09-12 12:57 | Inpatient (IN) ==
[2021-09-12] MEDS ORDERED: KETOROLAC 30 MG/ML VIAL IV ONE (13:43)
[2021-09-12] MEDS ORDERED: dexAMETHasone**PF** 10 MG/ML VIAL IV ONE (13:43)
[2021-09-12 13:55] LABS: Basophils # (auto) 0.01 K/uL (0-0.2); Basophils % (auto) 0.1 %; Eosinophils # (auto) 0.06 K/uL (0-0.5); Eosinophils % (auto) 0.6 %; Hematocrit (blood only) 44.3 % (42-52); Hemoglobin 14.8 g/dL (14.0-18.0); Immature Granulocytes # (auto) 0.02 K/uL (0.00-0.02); Immature Granulocytes % (auto) 0.2 %; Lymphocytes # (auto) 1.32 K/uL (1.2-3.4); Lymphocytes % (auto) 13.9 %; Mean Corpuscular Hemoglobin 30.4 pg (25-34); Mean Corpuscular Hgb Conc 33.4 g/dL (32-36); Monocytes # (auto) 1.07 K/uL (0.11-0.59); Monocytes % (auto) 11.3 %; Neutrophils % (auto) 73.9 %; Platelet Count 169 K/uL (130-400); RDW Coefficient of Variation 14.7 % (11.5-14.5); RDW Standard Deviation 48.7 fL (36.4-46.3); Red Blood Count 4.87 M/uL (4.7-6.1); White Blood Count 9.48 K/uL (4.8-10.8)
--- NOTE | 2021-09-12 14:06 | Emergency Department Note ---
Impression & Plan Lumbar back pain, Chest pain ED Provider Note CHIEF COMPLAINT: Lower back pain HISTORY OF PRESENT ILLNESS: Anton Nelson is a 61 year old male with history of morbid obesity, atrial fibrillation on Xarelto, CAD, HTN, hypothyroidism, lumbar disc disease among others listed below who presents to the Emergency Department via EMS for evaluation of persistent pain across his lower back radi ating into his left hip which has been worsening over the past 4 days. The patient denies sustaining any recent falls or injuries to his back but states that he initially developed the pain when he stood up from his chair 4 days prior. He denies pain radiating down into his legs or into his mid-upper back. No numbness/tingling, weakness, saddle paresthesias or loss of continence of his bowels or bladder. Today, he states that after he had gotten up to use the bathroom and sat back down in his chair, he was unable to get back up due to the pain in his back. Currently, he rates his discomfort as a 4/10, though he does note intermittent spasming pains which are much more painful. His symptoms worsen with attempts of movement. He has been taking oxycodone, Tramadol and methocarbamol with only mild relief of his symptoms. Today after lunch, the patient also noted development of midsternal chest pain. He denies radiation of the pain into his midback, jaw, or down his arm. No numbness/tingling. No lightheadedness, dizziness or shortness of breath. He states that he can feel that he is in atrial fibrillation but this is baseline for him. He otherwise denies fevers/chills, respiratory difficulties, abdominal pain, nausea, vomiting, diarrhea or urinary symptoms. The patient was evaluated in the ED on 09/09/21 for similar symptoms and had CT abdomen/pelvis and lumbar spine which did show degenerative disc disease, no other acute findings. He was prescribed oxycodone at that time and after following up with his PCP the next day he was also prescribed the methocarbamol. The patient reportedly received morphine 20 mg via EMS in route to the emergency department. REVIEW OF SYSTEMS: 10 systems were reviewed and were negative unless otherwise stated in HPI as above PHYSICAL EXAM: VITALS: Vitals are noted on the nurse's note and reviewed by myself. Vital signs stable. General: Resting in bed, no acute distress HEENT: Normocephalic, atraumatic, PERRL, EOMI, mucous membranes moist, oropharynx clear Neck: No midline or paraspinal cervical tenderness, ROM intact without pain, no meningismus Resp: Good inspiratory effort on room air, lung sounds clear bilaterally, mild tenderness to palpation of the anterior and left chest wall CV: Irregularly irregular rate and rhythm Back: Tender to palpation over the midline lumbar spine and bilateral paraspinal musculature. No obvious step-offs or deformities Abd: Obese, soft, non-tender MSK/Integumentary: Moving BUE with strength 5/5 and sensation intact throughout. Moving BLE with strength 4/5, notes exacerbation of back pain with bilateral hip flexion, sensation intact throughout. 1+ edema to the BLE. Neuro: Awake, alert and oriented x 3, interacting and answering questions appropriately Differential diagnosis includes musculoskeletal, disc herniation, fracture, metastatic disease, cord compression, discitis, sciatica, cauda equina, infection, aortic disease, renal colic, gastrointestinal, cardiac etiology, as well as other pathologies were considered. EMERGENCY DEPARTMENT COURSE: Physical exam and history were performed. Nursing triage notes, EMR, and medication list were personally reviewed. Patient appears to have persistent pain across his lower back radiating into his left hip which is been worsening over the past 4 days. He also noted development of midsternal chest pain after lunch today. Additional history as described above. See physical exam as above. Continuous insurance verification rep: Order was placed for continuous insurance verification rep. Patient was placed on the insurance verification rep. Patient was noted to be in atrial fibrillation at an initial rate of 92 bpm. EKG was obtained and reviewed by myself. This did show atrial fibrillation with RVR at 101 bpm. Right bundle branch block. When compared with study from 09/10/2021, T wave inversions longer evident in the anterior leads. The patient was offered medication. IV access was established and he was given Toradol 30 mg and dexamethasone 10 mg. Labs were obtained And reviewed by myself as below. Of note, no concern for leukocytosis with a WBC of 9.48. No concern for anemia with hemoglobin 14.8. Electrolytes WNL. Renal indices stable. BSG WNL. Total bilirubin elevated at 1.6. AST mildly elevated at 40. Alk phos elevated at 125. Troponin not elevated at <0.03. Coagulation studies WNL. Procalcitonin was not elevated at 0.11. CRP was elevated at 17.08 and ESR was elevated at 31 concerning for inflammatory process. Urinalysis was obtained and showed 1+ protein, 1+ ketones, 1+ bilirubin. Likely contaminated with 2030 epithelial cells. Due to the patient's ongoing back pain with elevated inflammatory markers, MRI lumbar spine was ordered for further evaluation. MRI lumbar spine was obtained and reviewed by radiologist and myself as below. This did show increased fluid signal within the L2-L3 disc which is new since previous MRI in June 2019. Could be degenerative versus possible discitis. There is also a small T2 hyperintense abnormality along the posterior aspect of the disc favoring a disc protrusion, although less likely a tiny epidural abscess cannot be completely excluded. Upon reevaluation, the patient was still having mild chest pain and his back pain was worse after returning from the MRI. He was given Dilaudid 1 mg. I did discuss results of the MRI with the patient as well as my attending, Dr. Mcgowan. I then contacted Dr. Powers of neurosurgery at [facility] in [place]. He was able to review the MRI. He suggested obtaining blood cultures and a repeat MRI with contrast to better assess for possible infection. He also suggested trending the inflammatory markers. Given the above findings and recommendations, I do feel that the patient would benefit from continued management in the hospital for ongoing work-up and treatment as indicated. Will also need chest pain rule out. [facility] agreed to evaluate the patient for ongoing management. The patient verbalized understanding and agreement with the treatment plan as above. The chart was completed utilizing [employer] Speech Voice Recognition Software. Grammatical errors, random word insertions, pronoun errors, and incomplete sentences are an occasional consequence of this system due to software limitations, ambient noise, and hardware issues. Any formal questions or concerns about the content, text, or information contained within the body of this dictation should be directly addressed to the provider for clarification. Past Med/Surg History Medical History Chronic anticoagulation Coronary artery disease "moderate disease per cardiac cath [facility] 2013; 50% LAD, 40% RCA" Depression Diabetes mellitus type 2, controlled History of colonic polyps History of urinary calculi "right ureteral stone 2015" Hx of sciatica Hypertension Hypothyroidism Insomnia Iron deficiency anemia "heme + stool 2015, subsequent EGD and colonoscopy neg except for polyp" Lumbar disc herniation Lumbar radiculopathy Morbid obesity Paroxysmal atrial fibrillation Ventricular septal defect Vitamin B12 deficiency Surgical History Status post cardiac catheterization "[place] 2014, 50% LAD, 40% RCA" Status post cystoscopy "with right ureteroscopy, laser lithotripsy, basket stone extraction" Status post gastric bypass for obesity Social History Smoking Status: Never smoker Hx Alcohol Use: No Hx Substance Use: No Preferred Language: Upper Sorbian Communication Ability: Effective Hearing Ability: Normal 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 Beliefs That Will Affect Care: None marital status: single Current Living Situation: Alone Feels Safe at Home: Yes Assistive Devices: None Allergies Allergies Allergy/AdvReac Type Severity Reaction Status Date / Time No Known Allergies Allergy ` Verified 09/12/21 17:41 Home Meds Home Medications Medication Instructions Recorded Confirmed diclofenac sodium 1 % topical gel 2 g TOPICAL QID PRN 11/24/18 09/12/21 diltiazem HCl 240 mg 240 mg PO QAM 11/24/18 09/12/21 tablet,extended release 24 hr ergocalciferol (vitamin D2) 1,250 50,000 unit PO WK 11/24/18 09/12/21 mcg (50,000 unit) capsule (Vitamin D2) magnesium oxide 400 mg PO BID 11/24/18 09/12/21 meloxicam 15 mg tablet 15 mg PO QAM 11/24/18 09/12/21 metoprolol succinate 100 mg 100 mg PO BID 11/24/18 09/12/21 tablet,extended release 24 hr pantoprazole 40 mg tablet,delayed 40 mg PO DAILY PRN 11/24/18 09/12/21 release rivaroxaban 20 mg tablet (Xarelto) 20 mg PO PM 11/24/18 09/12/21 trazodone 50 mg tablet 150 mg PO QPM PRN 11/24/18 09/12/21 ferrous sulfate 325 mg (65 mg 325 mg PO QAM 11/28/18 09/12/21 iron) tablet (iron) ibuprofen 200 mg tablet (Advil) 200 mg PO Q6H PRN 11/28/18 09/12/21 furosemide 40 mg tablet (Lasix) 40 mg PO QAM PRN 08/01/19 09/12/21 gabapentin 300 mg capsule 600 mg PO AMHS 08/01/19 09/12/21 potassium chloride 20 mEq oral 20 meq PO QPM 08/01/19 09/12/21 packet (Klor-Con) naproxen sodium 220 mg capsule 220 mg PO Q12H PRN 04/28/20 09/12/21 (Aleve) levothyroxine 125 mcg tablet 125 mcg PO DAILY 09/10/21 09/12/21 tramadol 50 mg tablet 50 mg PO TID PRN 09/12/21 09/12/21 Previous Rx's Medication Instructions Recorded oxycodone 5 mg tablet 5 mg PO Q6H PRN #8 tab 09/10/21 Results & Data (ED) Vital Signs Vital Signs - 24 hr 09/12/21 13:13 09/12/21 14:42 09/12/21 17:18 Temperature 36.7 C Temperature Source Oral Pulse Rate 92 H Pulse Rate [Apical] 98 H 89 Pulse Rhythm Irregular Respiratory Rate 17 17 22 Respiratory Effort / Characteristics Non-Labored Non-Labored Respiratory Depth Blood Pressure 125/92 Blood Pressure [Left Arm] 112/85 128/100 Blood Pressure Mean 103 Blood Pressure Mean [Left Arm] 94 109 Blood Pressure Position [Left Arm] Pulse Oximetry 94 93 94 Oxygen Delivery Method Room Air Room Air Room Air Sepsis Recent Fever Within 48 Hours No Sepsis New/Unexplained Change in Mental Status N/A Sepsis Action Taken by Nursing No Action Required 09/12/21 20:54 Temperature Temperature Source Pulse Rate Pulse Rate [Apical] 98 H Pulse Rhythm Respiratory Rate 22 Respiratory Effort / Characteristics Non-Labored Spontaneous Respiratory Depth Normal Blood Pressure Blood Pressure [Left Arm] 146/95 H Blood Pressure Mean Blood Pressure Mean [Left Arm] 112 Blood Pressure Position [Left Arm] Sitting Pulse Oximetry 96 Oxygen Delivery Method Room Air Sepsis Recent Fever Within 48 Hours Sepsis New/Unexplained Change in Mental Status Sepsis Action Taken by Nursing Laboratory Data Result diagrams: 09/12/21 13:05 09/12/21 13:05 Lab Results 09/12/21 09/12/21 09/12/21 Range/Units 13:05 13:05 13:05 WBC 9.48 (4.8-10.8) K/uL RBC 4.87 (4.7-6.1) M/uL Hgb 14.8 (14.0-18.0) g/dL Hct 44.3 (42-52) % MCV 91.0 (80-100) fL MCH 30.4 (25-34) pg MCHC 33.4 (32-36) g/dL RDW Std Deviation 48.7 H (36.4-46.3) fL RDW Coeff of Phu 14.7 H (11.5-14.5) % Plt Count 169 (130-400) K/uL MPV 9.0 (7.4-10.4) fL Immature Gran % (Auto) 0.2 % Neut % (Auto) 73.9 % Lymph % (Auto) 13.9 % [place] % (Auto) 11.3 % Eos % (Auto) 0.6 % Baso % (Auto) 0.1 % Neut # (Auto) 7.00 H (1.4-6.5) K/uL Lymph # (Auto) 1.32 (1.2-3.4) K/uL [place] # (Auto) 1.07 H (0.11-0.59) K/uL Eos # (Auto) 0.06 (0-0.5) K/uL Baso # (Auto) 0.01 (0-0.2) K/uL Immature Gran # (Auto) 0.02 (0.00-0.02) K/uL ESR (0-20) mm/hr PT 11.7 (9.0-12.0) Seconds INR 1.1 (0.9-1.1) APTT 33.3 H (21.0-31.0) Seconds PTT Ratio 1.2 Sodium 138 (136-145) mmol/L Potassium 3.7 (3.5-5.1) mmol/L Chloride 101 (98-107) mmol/L Carbon Dioxide 29 (21-32) mmol/L Anion Gap 8 (3-11) BUN 18 (6-23) mg/dl Creatinine 0.81 (0.6-1.4) mg/dl Est Cr Clr Drug Dosing 169.5 ml/min Est GFR ( Amer) 111.2 ml/min Est GFR (Non-Af Amer) 95.9 ml/min BUN/Creatinine Ratio 22.2 H (10-20) Glucose 93 (70-99(Fasting)) mg/dl Calcium 9.1 (8.5-10.1) mg/dl Total Bilirubin 1.6 H (0.2-1.0) mg/dl AST 40 H (13-39) U/L ALT 23 (7-52) U/L Alkaline Phosphatase 125 H (34-104) U/L Troponin I < 0.03 (0-0.04) ng/ml C-Reactive Protein 17.08 H (0-0.5) mg/dl Total Protein 7.1 (6.0-8.3) gm/dl Albumin 4.0 (3.4-5.0) gm/dl Globulin 3.1 (2.5-4.0) gm/dl Albumin/Globulin Ratio 1.3 (0.9-2) Procalcitonin (0-0.5) ng/ml Urine Color Urine Appearance (Clear) Urine pH (4.5-7.5) Ur Specific [place] (1.000-1.030) Urine Protein (Negative) Urine Glucose (UA) (Negative) Urine Ketones (Negative) Urine Blood (Negative) Urine Nitrite (Negative) Urine Bilirubin (Negative) Urine Urobilinogen (Negative) Ur Leukocyte Esterase (Negative) Urine WBC (Auto) (0-5) /hpf Urine RBC (Auto) (0-4) /hpf U Hyaline Cast (Auto) (0-5) /lpf U Epithel Cells (Auto) (0-5) /lpf Urine Bacteria (Auto) (Negative) SARS-CoV-2, RNA, NAAT (NEGATIVE) 09/12/21 09/12/21 09/12/21 Range/Units 13:05 13:05 13:41 WBC (4.8-10.8) K/uL RBC (4.7-6.1) M/uL Hgb (14.0-18.0) g/dL Hct (42-52) % MCV (80-100) fL MCH (25-34) pg MCHC (32-36) g/dL RDW Std Deviation (36.4-46.3) fL RDW Coeff of Phu (11.5-14.5) % Plt Count (130-400) K/uL MPV (7.4-10.4) fL Immature Gran % (Auto) % Neut % (Auto) % Lymph % (Auto) % [place] % (Auto) % Eos % (Auto) % Baso % (Auto) % Neut # (Auto) (1.4-6.5) K/uL Lymph # (Auto) (1.2-3.4) K/uL [place] # (Auto) (0.11-0.59) K/uL Eos # (Auto) (0-0.5) K/uL Baso # (Auto) (0-0.2) K/uL Immature Gran # (Auto) (0.00-0.02) K/uL ESR 31 H (0-20) mm/hr PT (9.0-12.0) Seconds INR (0.9-1.1) APTT (21.0-31.0) Seconds PTT Ratio Sodium (136-145) mmol/L Potassium (3.5-5.1) mmol/L Chloride (98-107) mmol/L Carbon Dioxide (21-32) mmol/L Anion Gap (3-11) BUN (6-23) mg/dl Creatinine (0.6-1.4) mg/dl Est Cr Clr Drug Dosing ml/min Est GFR ( Amer) ml/min Est GFR (Non-Af Amer) ml/min BUN/Creatinine Ratio (10-20) Glucose (70-99(Fasting)) mg/dl Calcium (8.5-10.1) mg/dl Total Bilirubin (0.2-1.0) mg/dl AST (13-39) U/L ALT (7-52) U/L Alkaline Phosphatase (34-104) U/L Troponin I (0-0.04) ng/ml C-Reactive Protein Cancelled (0-0.5) mg/dl Total Protein (6.0-8.3) gm/dl Albumin (3.4-5.0) gm/dl Globulin (2.5-4.0) gm/dl Albumin/Globulin Ratio (0.9-2) Procalcitonin 0.11 (0-0.5) ng/ml Urine Color Urine Appearance (Clear) Urine pH (4.5-7.5) Ur Specific [place] (1.000-1.030) Urine Protein (Negative) Urine Glucose (UA) (Negative) Urine Ketones (Negative) Urine Blood (Negative) Urine Nitrite (Negative) Urine Bilirubin (Negative) Urine Urobilinogen (Negative) Ur Leukocyte Esterase (Negative) Urine WBC (Auto) (0-5) /hpf Urine RBC (Auto) (0-4) /hpf U Hyaline Cast (Auto) (0-5) /lpf U Epithel Cells (Auto) (0-5) /lpf Urine Bacteria (Auto) (Negative) SARS-CoV-2, RNA, NAAT (NEGATIVE) 09/12/21 09/12/21 09/12/21 Range/Units 14:25 14:45 18:04 WBC (4.8-10.8) K/uL RBC (4.7-6.1) M/uL Hgb (14.0-18.0) g/dL Hct (42-52) % MCV (80-100) fL MCH (25-34) pg MCHC (32-36) g/dL RDW Std Deviation (36.4-46.3) fL RDW Coeff of Phu (11.5-14.5) % Plt Count (130-400) K/uL MPV (7.4-10.4) fL Immature Gran % (Auto) % Neut % (Auto) % Lymph % (Auto) % [place] % (Auto) % Eos % (Auto) % Baso % (Auto) % Neut # (Auto) (1.4-6.5) K/uL Lymph # (Auto) (1.2-3.4) K/uL [place] # (Auto) (0.11-0.59) K/uL Eos # (Auto) (0-0.5) K/uL Baso # (Auto) (0-0.2) K/uL Immature Gran # (Auto) (0.00-0.02) K/uL ESR (0-20) mm/hr PT (9.0-12.0) Seconds INR (0.9-1.1) APTT (21.0-31.0) Seconds PTT Ratio Sodium (136-145) mmol/L Potassium (3.5-5.1) mmol/L Chloride (98-107) mmol/L Carbon Dioxide (21-32) mmol/L Anion Gap (3-11) BUN (6-23) mg/dl Creatinine (0.6-1.4) mg/dl Est Cr Clr Drug Dosing ml/min Est GFR ( Amer) ml/min Est GFR (Non-Af Amer) ml/min BUN/Creatinine Ratio (10-20) Glucose (70-99(Fasting)) mg/dl Calcium (8.5-10.1) mg/dl Total Bilirubin (0.2-1.0) mg/dl AST (13-39) U/L ALT (7-52) U/L Alkaline Phosphatase (34-104) U/L Troponin I < 0.03 (0-0.04) ng/ml C-Reactive Protein (0-0.5) mg/dl Total Protein (6.0-8.3) gm/dl Albumin (3.4-5.0) gm/dl Globulin (2.5-4.0) gm/dl Albumin/Globulin Ratio (0.9-2) Procalcitonin (0-0.5) ng/ml Urine Color Dark Yellow Urine Appearance Clear (Clear) Urine pH 5.0 (4.5-7.5) Ur Specific [place] 1.037 H (1.000-1.030) Urine Protein 1+ H (Negative) Urine Glucose (UA) Negative (Negative) Urine Ketones 1+ H (Negative) Urine Blood Negative (Negative) Urine Nitrite Negative (Negative) Urine Bilirubin 1+ H (Negative) Urine Urobilinogen Negative (Negative) Ur Leukocyte Esterase Negative (Negative) Urine WBC (Auto) 1-5 (0-5) /hpf Urine RBC (Auto) 0-4 (0-4) /hpf U Hyaline Cast (Auto) 1-5 (0-5) /lpf U Epithel Cells (Auto) 20-30 H (0-5) /lpf Urine Bacteria (Auto) Negative (Negative) SARS-CoV-2, RNA, NAAT NEGATIVE (NEGATIVE) Administered Medications Discontinued Medications Dexamethasone Sodium Phosphate (DexamethasonePf 10 Mg/Ml Vial) 10 mg IV NOW ONE Stop: 09/12/21 13:44 Last Admin: 09/12/21 14:11 Dose: 10 mg Documented by: [id number] Hydromorphone HCl (Hydromorphone Inj 1 Mg/Ml Syringe) 1 mg IV NOW STA Stop: 09/12/21 17:28 Last Admin: 09/12/21 17:33 Dose: 1 mg Documented by: [id number] Ketorolac Tromethamine (Ketorolac 30 Mg/Ml Vial) 30 mg IV NOW ONE Stop: 09/12/21 13:44 Last Admin: 09/12/21 14:11 Dose: 30 mg Documented by: [id number] Imaging Data Radiologist's Impression: Chest X-Ray 09/12/21 13:41 XR chest 1V portable CLINICAL HISTORY: midsternal chest pain. COMPARISON STUDY: 04/28/2020 TECHNIQUE: 1 view of the chest FINDINGS: Single frontal view of the chest demonstrates the heart to again be enlarged. There is a decreased inspiratory effort with elevation of the hemidiaphragms and crowding of the bronchovascular markings at the lung bases and centrally. The lungs are clear of alveolar opacities. There is no evidence for pleural effusion. There is no evidence for vascular congestion. There is no acute osseous pathology. IMPRESSION: 1. There is a decreased inspiratory effort with otherwise no acute chest disease. ACT 112: Negative or not required by law. Electronically signed by: Marques Burton M.D. 09/12/2021 2:36 PM Lumbar Spine MRI 09/12/21 15:23 MRI OF THE LUMBAR SPINE WITHOUT CONTRAST CLINICAL HISTORY: lower back pain, elevated inflammatory markers COMPARISON STUDY: Lumbar spine MRI July 02, 2019. Lumbar spine CT September 10, 2021. TECHNIQUE: Utilizing a 1.5 Vidhi magnet and dedicated coil, multiplanar, m ultiecho imaging of the lumbar spine was performed without IV contrast. FINDINGS: For purposes of numbering on this exam, the L5-S1 disc space is assigned to axial image 33 of 36. Alignment of the lumbar spine is anatomic. This exam is significantly compromised by diminished [id number] ratio. No lumbar spine fracture is noted. The conus terminates at the L1-L2 level. Note is made of intramuscular edema within the bilateral psoas muscles, left greater than right. This was not present on previous MRI. There is also mild edema within the posterior paraspinal musculature. L1-2: Moderate disc space narrowing is noted with disc bulge and facet arthrosis. There is mild to moderate narrowing of the central canal. Neural foramen are patent. L2-3: Increased fluid signal within the L2-L3 disc is noted. This is new since previous MRI of July 02, 2019. Adjacent endplates are intact. There is a possible tiny 5 mm right paracentral fluid collection shown on sagittal image 9 of 18. T2 hyperintense foci along the posterior aspect the disc likely reflect disc protrusions. Tiny epidural fluid collections cannot be completely excluded. Findings result in moderate central canal stenosis, suboptimally assessed on this exam. Patent AP diameter of the canal is 5 mm. There is mild bilateral neural foraminal stenosis. L3-4: There is moderate disc space narrowing. Severe facet arthrosis is present. Central canal is patent. There is moderate bilateral neural foraminal stenosis. L4-5: Central disc protrusion is again noted. There is severe facet arthrosis. There is moderate narrowing of the central canal, similar to previous MRI. There is moderate bilateral neural foraminal stenosis. L5-S1: Central canal is patent. There is severe facet arthrosis. Neural foramen are patent. IMPRESSION: 1. Increased fluid signal within the L2-L3 disc which is new since MRI of July 02, 2019. Although this could be degenerative, the findings raise the possibility of discitis. Small T2 hyperintense abnormalities along the posterior aspect of the disc favor disc protrusions. Although less likely, tiny epidural abscesses cannot be completely excluded. Therefore, short-term follow-up MRI of the lumbar spine with and without contrast is recommended in several days. Moderate central canal stenosis at this level. Bilateral psoas and posterior paraspinous musculature edema. No paraspinal fluid collection on unenhanced exam. 2. Exam significantly compromised by artifact due to diminished [id number] ratio. 3. Moderate central canal stenosis at L2-L3 and L4-L5. Moderate to severe mu ltilevel neural foraminal stenosis, as described above. ACT 112: Negative or not required by law. Electronically signed by: Perry Zheng M.D. 09/12/2021 5:51 PM Discharge Plan Visit Data Chief Complaint: Back Injury/Pain ED Provider: Zhang Mcgowan ED Midlevel Provider: Rosalia Garcia Discharge Problem: Lumbar back pain, Chest pain Patient Disposition: Admitted As Inpatient Forms Stand Alone Forms: [facility] Prescriptions Prescriptions: No Action potassium chloride [Klor-Con] 20 mEq packet 20 meq PO QPM RF: 0 furosemide [Lasix] 40 mg tablet 40 mg PO QAM PRN (Reason: Edema) RF: 0 gabapentin 300 mg capsule 600 mg PO AMHS RF: 0 ferrous sulfate [iron] 325 mg (65 mg iron) Tablet 325 mg PO QAM RF: 0 ibuprofen [Advil] 200 mg Tablet 200 mg PO Q6H PRN (Reason: Pain) RF: 0 trazodone 50 mg Tablet 150 mg PO QPM PRN (Reason: Sleep) RF: 0 meloxicam 15 mg Tablet 15 mg PO QAM RF: 0 metoprolol succinate 100 mg Tablet Extended Release 24 Hr 100 mg PO BID RF: 0 pantoprazole 40 mg Tablet,Delayed Release (Dr/Ec) 40 mg PO DAILY PRN (Reason: Gi Upset) RF: 0 ergocalciferol (vitamin D2) [Vitamin D2] 50,000 unit Capsule 50,000 unit PO WK RF: 0 diltiazem HCl 240 mg Tablet Extended Release 24 Hr 240 mg PO QAM RF: 0 diclofenac sodium 1 % Gel 2 g TOPICAL QID PRN (Reason: Pain) RF: 0 Xarelto 20 mg Tablet 20 mg PO PM RF: 0 magnesium oxide 400 mg magnesium Tablet 400 mg PO BID RF: 0 naproxen sodium [Aleve] 220 mg Capsule 220 mg PO Q12H PRN (Reason: Pain) RF: 0 oxycodone 5 mg tablet 5 mg PO Q6H PRN (Reason: pain) Qty: 8 RF: 0 levothyroxine 125 mcg tablet 125 mcg PO DAILY RF: 0 tramadol 50 mg tablet 50 mg PO TID PRN (Reason: Pain) RF: 0 Referrals Referrals: Sandi Roman [Primary Care Provider] -
[2021-09-12 14:27] LABS: Alanine Aminotransferase 23 U/L (7-52); Albumin Globulin Ratio 1.3 (0.9-2); Alkaline Phosphatase 125 U/L (34-104); Anion Gap 8 (3-11); Aspartate Aminotransferase 40 U/L (13-39); BUN Creatinine Ratio 22.2 (10-20); Bilirubin,Total 1.6 mg/dl (0.2-1.0); Blood Urea Nitrogen 18 mg/dl (6-23); C Reactive Protein 17.08 mg/dl (0-0.5); Calcium 9.1 mg/dl (8.5-10.1); Carbon Dioxide 29 mmol/L (21-32); Chloride 101 mmol/L (98-107); Creatinine Clr Calc Pharmacy 169.5 ml/min; Est GFR (African American) 111.2 ml/min; Est GFR (Non-African American) 95.9 ml/min; Globulin 3.1 gm/dl (2.5-4.0); Glucose 93 mg/dl (70-99(Fasting)); Potassium 3.7 mmol/L (3.5-5.1); Sodium 138 mmol/L (136-145); Total Protein 7.1 gm/dl (6.0-8.3)
--- NOTE | 2021-09-12 14:38 | XRay Report ---
XR chest 1V portable CLINICAL HISTORY: midsternal chest pain. COMPARISON STUDY: 04/28/2020 TECHNIQUE: 1 view of the chest FINDINGS: Single frontal view of the chest demonstrates the heart to again be enlarged. There is a decreased in spiratory effort with elevation of the hemidiaphragms and crowding of the bronchovascular markings at the lung bases and centrally. The lungs are clear of alveolar opacities. There is no evidence for pl eural effusion. There is no evidence for vascular congestion. There is no acute osseous pathology. IMPRESSION: 1. There is a decreased inspiratory effort with otherwise no acute chest disease. ACT 112: Negative or not required by law. Electronically signed by: Marques Burton M.D. 09/12/2021 2:36 PM
[2021-09-12 14:50] LABS: INR 1.1 (0.9-1.1); Partial Thromboplastin Ratio 1.2; Partial Thromboplastin Time 33.3 Seconds (21.0-31.0); Prothrombin Time 11.7 Seconds (9.0-12.0)
[2021-09-12 14:53] LABS: Troponin I < 0.03 ng/ml (0-0.04)
--- NOTE | 2021-09-12 15:01 | Electrocardiogram Report ---
Test Reason : Blood Pressure : / mmHG Vent. Rate : 101 BPM Atrial Rate : 108 BPM P-R Int : 000 ms QRS Dur : 134 ms QT Int : 360 ms P-R-T Axes : 000 090 -05 degrees QTc Int : 466 ms Atrial fibrillation with rapid ventricular response Right bundle branch block Abnormal ECG When compared with ECG of 10-SEP-2021 12:29, T wave inversion no longer evident in Anterior leads Confirmed by Marciano Adan ([id number]) on 09/12/2021 3:01:12 PM Referred By: REFERRED SELF Confirmed By:Marciano Adan
[2021-09-12 15:43] LABS: Appearance Urine Clear (Clear); Bacteria Urine Automated Negative (Negative); Blood Urine Negative (Negative); Color Urine Dark Yellow; Epithelial Cell Urine Auto 20-30 /lpf (0-5); Glucose Urine UA Negative (Negative); Ketones Urine 1+ (Negative); Leukocyte Esterase Urine Negative (Negative); Nitrite Urine Negative (Negative); Protein Urine 1+ (Negative); RBC Urine Automated 0-4 /hpf (0-4); Specific Gravity Urine 1.037 (1.000-1.030); Urobilinogen Urine Negative (Negative)
[2021-09-12 15:57] LABS: Bilirubin Urine 1+ (Negative)
[2021-09-12] MEDS ORDERED: HYDROmorphone INJ 1 MG/ML SYRINGE IV STA (17:27)
--- NOTE | 2021-09-12 17:53 | Magnetic Resonance Report ---
MRI OF THE LUMBAR SPINE WITHOUT CONTRAST CLINICAL HISTORY: lower back pain, elevated inflammatory markers COMPARISON STUDY: Lumbar spine MRI July 02, 2019. Lumbar spine CT September 10, 2021. TECHNIQUE: Utilizing a 1.5 Vidhi magnet and dedicated coil, multiplanar, multiecho imaging of the [facility] spine was performed without IV contrast. FINDINGS: For purposes of numbering on this exam, the L5-S1 disc space is assigned to axial image 33 of 36. Ali gnment of the lumbar spine is anatomic. This exam is significantly compromised by diminished signal-t o-noise ratio. No lumbar spine fracture is noted. The conus terminates at the L1-L2 level. Note is ma de of intramuscular edema within the bilateral psoas muscles, left greater than right. This was not p resent on previous MRI. There is also mild edema within the posterior paraspinal musculature. L1-2: Moderate disc space narrowing is noted with disc bulge and facet arthrosis. There is mild to mo derate narrowing of the central canal. Neural foramen are patent. L2-3: Increased fluid signal within the L2-L3 disc is noted. This is new since previous MRI of 2019. Adjacent endplates are intact. There is a possible tiny 5 mm right paracentral fluid carmelo ection shown on sagittal image 9 of 18. T2 hyperintense foci along the posterior aspect the disc like ly reflect disc protrusions. Tiny epidural fluid collections cannot be completely excluded. Findings result in moderate central canal stenosis, suboptimally assessed on this exam. Patent AP diameter of the canal is 5 mm. There is mild bilateral neural foraminal stenosis. L3-4: There is moderate disc space narrowing. Severe facet arthrosis is present. Central canal is pat ent. There is moderate bilateral neural foraminal stenosis. L4-5: Central disc protrusion is again noted. There is severe facet arthrosis. There is moderate narr owing of the central canal, similar to previous MRI. There is moderate bilateral neural foraminal mahsa nosis. L5-S1: Central canal is patent. There is severe facet arthrosis. Neural foramen are patent. IMPRESSION: 1. Increased fluid signal within the L2-L3 disc which is new since MRI of July 02, 2019. Although this could be degenerative, the findings raise the possibility of discitis. Small T2 hyperintense abn ormalities along the posterior aspect of the disc favor disc protrusions. Although less likely, tiny epidural abscesses cannot be completely excluded. Therefore, short-term follow-up MRI of the lumbar s pine with and without contrast is recommended in several days. Moderate central canal stenosis at thi s level. Bilateral psoas and posterior paraspinous musculature edema. No paraspinal fluid collection on unenhanced exam. 2. Exam significantly compromised by artifact due to diminished [id number] ratio. 3. Moderate central canal stenosis at L2-L3 and L4-L5. Moderate to severe multilevel neural foraminal stenosis, as described above. ACT 112: Negative or not required by law. Electronically signed by: Perry Zheng M.D. 09/12/2021 5:51 PM
[2021-09-12] MEDS ORDERED: CONSULT PHARMACY STA (22:30)
[2021-09-12] MEDS ORDERED: ACETAMINOPHEN 325 MG TAB PO PRN (23:41)
[2021-09-12] MEDS ORDERED: FUROSEMIDE 40 MG TAB PO PRN (23:41)
[2021-09-12] MEDS ORDERED: POLYETHYLENE (MIRALAX) 17 GM PACK PO PRN (23:41)
[2021-09-12] MEDS ORDERED: PIPERACILL/TAZOBAC CONSULT ACTIVE PRN (23:41)
--- NOTE | 2021-09-13 00:07 | History and Physical Report ---
DATE OF ADMISSION: 09/12/2021. CHIEF COMPLAINT: Back pain. HISTORY OF PRESENT ILLNESS: This is a 61-year-old male with past medical history significant for hypothyroidism, atrial fibrillation, hypertension, morbid obesity, presents with severe back pain. The patient since last Wednesday is having severe back pain. Not to ambulate much because of back pain. No weakness in the legs. No bowel or bladder incontinence. No fever, no chills. Denies any other complaints, resting comfortably, hemodynamically stable. Denies any headache. No blurred visions, no earache, no runny nose, no sore throat, no cough, no chest pain, no shortness of breath, no nausea, no vomiting, no abdominal pain. ALLERGIES: No known drug allergies. PAST MEDICAL HISTORY: As mentioned above. PAST SURGICAL HISTORY: No surgical history on file. MEDICATIONS: The patient is on diclofenac sodium 2 g topical q.i.d. p.r.n., diltiazem 240 mg p.o. a.m., vitamin D 50,000 units p.o. weekly, ferrous sulfate 325 mg p.o. a.m., Lasix 40 mg p.o. daily p.r.n., gabapentin 600 mg p.o. b.i.d., levothyroxine 125 mcg p.o. daily, magnesium oxide 400 mg p.o. b.i.d., meloxicam 15 mg p.o. a.m., metoprolol succinate 100 mg p.o. b.i.d., oxycodone 5 mg p.o. q.6 hours p.r.n., Protonix 40 mg p.o. daily p.r.n., potassium chloride 20 mEq p.o. p.m., tramadol 50 mg p.o. t.i.d. p.r.n., trazodone 150 mg p.o. p.m. p.r.n., Xarelto 20 mg p.o. p.m. FAMILY HISTORY: Significant for no family history on file. SOCIAL HISTORY: Single. Former smoker. Alcohol rarely. No drug use. REVIEW OF SYSTEMS: As per HPI. Rest of review of systems is negative. PHYSICAL EXAMINATION: GENERAL: The patient is morbidly obese, not in acute distress. VITAL SIGNS: Temperature 36.7, pulse 98, respiration 22, blood pressure 146/95, oxygen 96% on room air. HEENT: Pupils equal, round and reactive to light. Oral mucosa moist. NECK: No JVD. No neck masses. CARDIOVASCULAR: S1 and S2 heard. Regular rate and rhythm. No murmur, no gallop. RESPIRATORY SYSTEM: Normal AP diameter. No accessory muscle use. No wheezing, no crackles. ABDOMEN: Soft, bowel sounds present, nontender, no distention. CENTRAL NERVOUS SYSTEM: Cranial nerves II-XII grossly intact, nonfocal. EXTREMITIES: Mild pedal edema present, no erythema seen. Moves extremities. LABORATORY DATA: WBC 9.4, hemoglobin 14.8, hematocrit 44.3, platelets 169. ESR 31. PT 11.7, INR 1.1, APTT 33.3. Sodium 138, potassium 3.7, chloride 101, bicarbonate 29, BUN 18, creatinine 0.8, serum glucose 193, calcium 9.1, total bilirubin 1.6, AST 40, ALT 23, alkaline phosphatase 125. Troponin I less than 0.03. C-reactive protein 17. Procalcitonin 0.11. Urinalysis, +1 ketones. SARS-CoV-2 rapid test negative. IMAGING: Chest x-ray: No acute findings. EKG: AFib with rapid ventricular response at 101, no acute ST-T changes seen. Lumbar spine MRI shows increased fluid signal within the L2-L3 disk, which is new since MRI of 07/02/2019; although this could be degenerative, the findings raise the possibility of diskitis. Small T2 hyperintense abnormalities along the posterior aspect, this favors disk protrusion. Also less likely a tiny epidural abscess cannot be completely excluded. Therefore, short-term followup MRI of lumbar spine with and without contrast is recommended in several days. . Moderate to severe multilevel neural foraminal stenosis. ASSESSMENT AND PLAN: This is a 61-year-old male who presents with severe back pain. 1. Severe back pain: Possible diskitis, questionable small tiny epidural abscess cannot be completely excluded. Emergency Room talked to neurosurgery at [facility]; they recommended to give antibiotic, blood culture and get the MRI scan with and without contrast for now. We will also consult orthopedics in the a.m. We will keep him n.p.o. after midnight, IV daptomycin and IV Zosyn. Follow the cultures. Follow the response. Follow the repeat MRI scan. 2. History of atrial fibrillation: Continue rate control with metoprolol succinate and diltiazem. Holding Xarelto for any procedures. 3. Lower extremity edema: On Lasix p.r.n. 4. Hypothyroidism: Continue Synthroid. 5. Gastroesophageal reflux disease: Continue Protonix. 6. Morbid obesity: Needs counseling. 7. Hypertension: On metoprolol and diltiazem. We will monitor the blood pressure. 8. Deep venous thrombosis prophylaxis: Sequential compression devices for now. DISPOSITION: Closely monitor in the medical floor. PT, OT prior to discharge. Social service to help with discharge planning. Job ID: [id number] MTDD
[2021-09-13] MEDS: traZODone HCL 50 MG TAB PO PRN ×2 (00:23→21:48)
[2021-09-13] MEDS: oxyCODONE HCL IR 5 MG TAB (IMMEDIATE RELEASE) PO PRN ×3 (00:24→15:56)
[2021-09-13] MEDS ORDERED: PIPERACILLIN/TAZOBACTAM 4.5 GM in DEXTROSE 5% 100 ML IV ONE (00:30)
[2021-09-13] MEDS: DAPTOmycin 750 MG in SYRINGE 0 ML IV SCH ×2 (00:42→23:39)
[2021-09-13] MEDS ORDERED: FLUARIX QUADRIVALENT 0.5 ML SYR IM ONE (03:16)
[2021-09-13] MEDS: HYDROmorphone INJ 0.5 MG/0.5 ML SYR IV PRN ×4 (04:40→20:53)
[2021-09-13] MEDS: LEVOTHYROXINE SODIUM 125 MCG TABLET PO SCH (05:47)
[2021-09-13] MEDS: PIPERACILLIN/TAZOBACTAM 4.5 GM in DEXTROSE 5% 100 ML IV SCH ×3 (05:47→21:49)
[2021-09-13 06:14] LABS: Calcium 8.9 mg/dl (8.5-10.1); Creatinine Clr Calc Pharmacy 195.3 ml/min; Est GFR (African American) 118.8 ml/min; Est GFR (Non-African American) 102.5 ml/min; Magnesium 1.7 mg/dl (1.7-2.4)
[2021-09-13] MEDS: MAGNESIUM OXIDE 400 MG TAB PO SCH ×2 (07:39→20:33)
[2021-09-13] MEDS: METOPROLOL SUCC 50MG EXT REL TAB PO SCH ×2 (07:39→20:33)
[2021-09-13] MEDS: GABAPENTIN 600 MG TAB PO SCH ×2 (07:39→20:33)
[2021-09-13] MEDS: FERROUS SULFATE 325 MG TAB PO SCH (07:39)
[2021-09-13 08:06] LABS: Hematocrit (blood only) 40.7 % (42-52); Hemoglobin 14.1 g/dL (14.0-18.0); Immature Granulocytes # (auto) 0.02 K/uL (0.00-0.02); Immature Granulocytes % (auto) 0.2 %; Lymphocytes # (auto) 0.69 K/uL (1.2-3.4); Lymphocytes % (auto) 8.1 %; Mean Corpuscular Hemoglobin 30.9 pg (25-34); Mean Corpuscular Hgb Conc 34.6 g/dL (32-36); Mean Corpuscular Volume 89.1 fL (80-100); Mean Platelet Volume 9.1 fL (7.4-10.4); Monocytes # (auto) 0.52 K/uL (0.11-0.59); Monocytes % (auto) 6.1 %; Neutrophils # (auto) 7.28 K/uL (1.4-6.5); Neutrophils % (auto) 85.6 %; Platelet Count 181 K/uL (130-400); RDW Coefficient of Variation 14.4 % (11.5-14.5); RDW Standard Deviation 47.6 fL (36.4-46.3); Red Blood Count 4.57 M/uL (4.7-6.1); White Blood Count 8.51 K/uL (4.8-10.8)
[2021-09-13] MEDS ORDERED: Nursing to Pharmacy Communication SCH (14:30)
[2021-09-13] MEDS ORDERED: POTASSIUM CHLORIDE PWD 20 MEQ PACK PO SCH (16:30)
[2021-09-13] MEDS ORDERED: MELATONIN 3 MG TAB PO PRN (17:20)
--- NOTE | 2021-09-13 17:31 | Hospitalist Progress Note ---
Date of Service September 13, 2021 Assessment & Plan (1) Gram-positive bacteremia: (2) Discitis of lumbar region: (3) A-fib: (4) Morbid obesity: Plan: 61 year old morbidly obese male presenting with acute onset low back pain for the past 5 days, acutely worsened over the past 2 days. GP bacteremia with suspected diskitis and epidural abscess- Blood clx with GP bacteria in chain in 2/2 clx, repeat blood clx pending. MRI reviewed- concern for diskitis and epidural abscess. CRP, ESR elevated, normal WBC, procal negative. Not sick or septic looking. Discussed with Dr Goff's PA- Dr Goff is out of town until Wednesday. MRI called back stating no utility of repeat MRI so shortly- recommended repeat MRI in 5-7 days. ID evaluation pending. Back surgery evaluation pending. Patient does not want to go to [place]. Will continue empiric dapto/zosyn for now pending final clx results, await ID eval, await eval by Dr Goff. Will get TTE to r/o vegetation. F/u to ensure clearance of bacteremia. Pain management- will likely discontinue IV analgesic on wednesday. Paroxsymal Afib- continue toprol and cardizem. Resume xarelto as currently no plans for any procedure. HTN- stable, on toprol and cardizem Morbid obesity- BMI 65. Weight loss recommended hypothyroidism- continue synthroid DVT prophylaxis- xarelto Dispo- pending clearance of bacteremia, final clx results, repeat MRI in 5-7 days. Will need IV antibiotics, ID eval pending, might need transfer to tertiary center but patient declining currently Admission and Anticipated Discharge Date Admission Date: September 12, 2021 Subjective Seen and examined at bedside. States he feels better with the iv pain medication. He would want to be on iv pain medication for a day or two until the antibiotic works and until he is seen by Dr Goff on Wednesday. He does not want to go to [place] stating he is closer to home here and has to take care of his parents. His blood culture is positive for GP bacteria, denies any iv drug abuse, lines, skin breaks, cellulitis etc. This back pain came all of a sudden over the past 5 days and acutely worsened few days back. Pain in lower back, spreads to both sides and shoots down left leg. No fever or chills at all. States having issues with sleep at night and agrees to melatonin. Physical Exam 2 Physical Exam: General: Morbidly obese, Lying comfortably in bed, not in acute distress, on room air HEENT: EOMI, JEFFRY, MMM Chest: Clear breath sounds anteriorly, no wheezes or crackles CVS: Regular rate and rhythm, normal heart sounds, no murmur Abdomen: Soft, non tender, not distended, normal bowel sounds Neuro: Awake, alert, oriented, conversing well, non focal Extremities: No cyanosis, clubbing or edema Results & Data Results & Data ([facility]) Vital Signs (Past 12 Hours) Vital Signs Temp Pulse Pulse Resp BP Pulse Ox 09/13/21 15:47 36.8 C 93 H 18 119/75 94 09/13/21 07:20 36.7 C 95 H 18 129/82 94 Laboratory Results Short CBC 09/13/21 Range/Units 05:06 WBC 8.51 (4.8-10.8) K/uL Hgb 14.1 (14.0-18.0) g/dL Hct 40.7 L (42-52) % Plt Count 181 (130-400) K/uL BMP 09/13/21 05:06 Sodium 138 Potassium 4.0 Chloride 104 Carbon Dioxide 24 BUN 20 Creatinine 0.69 Glucose 129 H Calcium 8.9 Cardiac Enzymes 09/12/21 Range/Units 18:04 Troponin I < 0.03 (0-0.04) ng/ml Medications Administered Current Inpatient Medications Acetaminophen (Acetaminophen 325 Mg Tab) 650 mg PO Q4H PRN PRN Reason: pain/fever Stop: 10/12/21 23:40 Last Admin: 09/13/21 15:55 Dose: 650 mg Documented by: Diclofenac Sodium (Diclofenac Sod 1% Gel 100 Gm Tube) 2 gm EXT QID PRN PRN Reason: Pain Stop: 10/12/21 23:40 Diltiazem HCl (Diltiazem Hcl 120 Mg Er Cap) 240 mg PO QAM [facility] Stop: 10/13/21 08:59 Last Admin: 09/13/21 07:39 Dose: 240 mg Documented by: Ergocalciferol (Ergocalciferol 50,000 Units 1250 Mcg Cap) 50,000 units PO Vargas@0900 [facility] Stop: 10/14/21 08:59 Ferrous Sulfate (Ferrous Sulfate 325 Mg Tab) 325 mg PO QAM [facility] Stop: 10/13/21 08:59 Last Admin: 09/13/21 07:39 Dose: 325 mg Documented by: Furosemide (Furosemide 40 Mg Tab) 40 mg PO QAM PRN PRN Reason: Edema Stop: 10/12/21 23:40 Gabapentin (Gabapentin 600 Mg Tab) 600 mg PO AMHS [facility] Stop: 10/13/21 08:59 Last Admin: 09/13/21 07:39 Dose: 600 mg Documented by: Hydromorphone HCl (Hydromorphone Inj 0.5 Mg/0.5 Ml Syr) 0.5 mg IV Q3H PRN PRN Reason: Pain Stop: 09/26/21 23:40 Last Admin: 09/13/21 13:08 Dose: 0.5 mg Documented by: Daptomycin 750 mg/ Syringe 15 mls @ 7.5 mls/min IV Q24H [facility]; Protocol Stop: 10/25/21 00:00 Last Admin: 09/13/21 00:42 Dose: 7.5 mls/min Documented by: Piperacillin Sod/Tazobactam (Sod 4.5 gm/ Dextrose) 120 mls @ 30 mls/hr IV Q8H [facility]; Protocol Stop: 10/25/21 05:59 Last Admin: 09/13/21 14:23 Dose: 30 mls/hr Documented by: Levothyroxine Sodium (Levothyroxine Sodium 125 Mcg Tablet) 125 mcg PO DAILYBB [facility] Stop: 10/13/21 06:29 Last Admin: 09/13/21 05:47 Dose: 125 mcg Documented by: Magnesium Oxide (Magnesium Oxide 400 Mg Tab) 400 mg PO BID [facility] Stop: 10/13/21 08:59 Last Admin: 09/13/21 07:39 Dose: 400 mg Documented by: Melatonin (Melatonin 3 Mg Tab) 6 mg PO HS PRN PRN Reason: Sleep Stop: 10/13/21 17:19 Metoprolol Succinate (Metoprolol Succ 50mg Ext Rel Tab) 100 mg PO BID [facility] Stop: 10/13/21 08:59 Last Admin: 09/13/21 07:39 Dose: 100 mg Documented by: Miscellaneous Information (Daptomycin Consult Active) 1 ea N/A UD PRN PRN Reason: Consult Stop: 10/12/21 23:40 Miscellaneous Information (Piperacill/Tazobac Consult Active) 1 ea N/A UD PRN PRN Reason: Consult Stop: 10/12/21 23:40 Oxycodone HCl (Oxycodone Hcl Ir 5 Mg Tab (Immediate Release)) 5 mg PO Q6H PRN PRN Reason: pain Stop: 09/26/21 23:40 Last Admin: 09/13/21 15:56 Dose: 5 mg Documented by: Pantoprazole Sodium (Pantoprazole 40 Mg Tab) 40 mg PO DAILY PRN PRN Reason: Gi Upset Stop: 10/12/21 23:40 Polyethylene Glycol (Polyethylene (Miralax) 17 Gm Pack) 17 gm PO DAILY PRN PRN Reason: Constipation Stop: 10/12/21 23:40 Potassium Chloride (Potassium Chloride Crtab 20 Meq Tabcr) 20 meq PO DAILY [facility] Stop: 10/14/21 08:59 Rivaroxaban (Rivaroxaban 20 Mg Tab) 20 mg PO PM [facility] Stop: 10/13/21 20:59 Trazodone HCl (Trazodone Hcl 50 Mg Tab) 150 mg PO QPM PRN PRN Reason: Sleep Stop: 10/12/21 23:40 Last Admin: 09/13/21 00:23 Dose: 150 mg Documented by: (1) A-fib Atrial fibrillation type: paroxysmal Qualified Code(s): I48.0 - Paroxysmal atrial fibrillation
[2021-09-13] MEDS: RIVAROXABAN 20 MG TAB PO SCH (20:33)
[2021-09-14] MEDS: HYDROmorphone INJ 0.5 MG/0.5 ML SYR IV PRN ×2 (01:34→08:42)
[2021-09-14] MEDS: LEVOTHYROXINE SODIUM 125 MCG TABLET PO SCH (06:00)
[2021-09-14] MEDS: PIPERACILLIN/TAZOBACTAM 4.5 GM in DEXTROSE 5% 100 ML IV SCH ×3 (06:00→21:43)
[2021-09-14] MEDS: oxyCODONE HCL IR 5 MG TAB (IMMEDIATE RELEASE) PO PRN ×2 (06:48→19:24)
[2021-09-14] MEDS: POTASSIUM CHLORIDE CRTAB 20 MEQ TABCR PO SCH (08:41)
[2021-09-14] MEDS: ERGOCALCIFEROL 50,000 UNITS 1250 MCG CAP PO SCH (08:41)
[2021-09-14] MEDS: FERROUS SULFATE 325 MG TAB PO SCH (08:42)
[2021-09-14] MEDS: METOPROLOL SUCC 50MG EXT REL TAB PO SCH ×2 (08:42→21:02)
[2021-09-14] MEDS: MAGNESIUM OXIDE 400 MG TAB PO SCH ×2 (08:42→21:01)
[2021-09-14] MEDS: GABAPENTIN 600 MG TAB PO SCH ×2 (08:42→21:01)
[2021-09-14] MEDS ORDERED: HYDROmorphone INJ 0.5 MG/0.5 ML SYR IV PRN (09:41)
[2021-09-14] MEDS: LIDOCAINE 5% 1 PATCH TD SCH (11:08)
[2021-09-14] MEDS: KETOROLAC 30 MG/ML VIAL IV PRN ×2 (12:18→21:45)
[2021-09-14] MEDS: MoRPHine SULFATE 4 MG/ML 1 ML CARP\\VIAL IV PRN (16:46)
--- NOTE | 2021-09-14 16:46 | Hospitalist Progress Note ---
Date of Service September 14, 2021 Assessment & Plan (1) Gram-positive bacteremia: (2) Discitis of lumbar region: (3) A-fib: (4) Morbid obesity: Plan: 61 year old morbidly obese male presenting with acute onset low back pain for the past 5 days, acutely worsened over the past 2 days. Enterococcus bacteremia with suspected diskitis and epidural abscess- Blood clx with enterococcus in 2/2 clx, repeat blood clx also with enteroccus. Will repeat blood clx until clearance of bacteremia. MRI reviewed- concern for diskitis and epidural abscess. CRP, ESR elevated, normal WBC, procal negative. Not sick or septic looking. Discussed with Dr Gfof's PA- Dr Goff is out of town until Wednesday. MRI called back stating no utility of repeat MRI so shortly- recommended repeat MRI in 5-7 days. ID evaluation pending. Back surgery evaluation pending. Patient does not want to go to [place]. Will continue empiric dapto/zosyn for now pending final clx results, await ID eval, await eval by Dr Goff. Will get TTE to r/o vegetation. F/u to ensure clearance of bacteremia. Pain management. Paroxsymal Afib- continue toprol and cardizem. Continue xarelto as currently no plans for any procedure. HTN- stable, on toprol and cardizem Morbid obesity- BMI 65. Weight loss recommended hypothyroidism- continue synthroid DVT prophylaxis- xarelto Dispo- pending clearance of bacteremia, final clx results, repeat MRI in 5-7 days. Will need IV antibiotics, ID eval pending, might need transfer to tertiary center but patient declining currently Admission and Anticipated Discharge Date Admission Date: September 12, 2021 Subjective Patient was seen and examined bedside. States he had increasing pain but no new neurological symptoms. Denies any bowel bladder incontinence or perineal paresthesia. Characteristics of pain is largely same but the same pain medicine as yesterday is not helping much. He would like to something stronger for times when he will be going to walk the bathroom or getting some activities as pain worsen at those times. Physical Exam Physical Exam: General: Morbidly obese, Lying in bed, not in acute distress, on room air HEENT: EOMI, JEFFRY, MMM Chest: Clear breath sounds anteriorly, no wheezes or crackles CVS: Regular rate and rhythm, normal heart sounds, no murmur Abdomen: Soft, non tender, not distended, normal bowel sounds Neuro: Awake, alert, oriented, conversing well, non focal Extremities: No cyanosis, clubbing or edema Results & Data Results & Data ([facility]) Vital Signs (Past 12 Hours) Vital Signs Temp Pulse Resp BP Pulse Ox 09/14/21 07:45 37 C 97 H 18 148/86 H 93 (1) A-fib Atrial fibrillation type: paroxysmal Qualified Code(s): I48.0 - Paroxysmal atrial fibrillation
[2021-09-14] MEDS: RIVAROXABAN 20 MG TAB PO SCH (21:01)
[2021-09-14] MEDS: traZODone HCL 50 MG TAB PO PRN (23:54)
[2021-09-14] MEDS: DAPTOmycin 750 MG in SYRINGE 0 ML IV SCH (23:54)
[2021-09-15] MEDS: MoRPHine SULFATE 4 MG/ML 1 ML CARP\\VIAL IV PRN ×2 (03:23→19:41)
[2021-09-15] MEDS: oxyCODONE HCL IR 5 MG TAB (IMMEDIATE RELEASE) PO PRN (04:09)
[2021-09-15] MEDS: PIPERACILLIN/TAZOBACTAM 4.5 GM in DEXTROSE 5% 100 ML IV SCH (05:37)
[2021-09-15] MEDS: LEVOTHYROXINE SODIUM 125 MCG TABLET PO SCH (05:38)
[2021-09-15 06:12] LABS: Basophils # (auto) 0.02 K/uL (0-0.2); Basophils % (auto) 0.3 %; Eosinophils # (auto) 0.06 K/uL (0-0.5); Eosinophils % (auto) 0.8 %; Hematocrit (blood only) 40.6 % (42-52); Hemoglobin 13.8 g/dL (14.0-18.0); Immature Granulocytes # (auto) 0.01 K/uL (0.00-0.02); Immature Granulocytes % (auto) 0.1 %; Lymphocytes # (auto) 1.77 K/uL (1.2-3.4); Lymphocytes % (auto) 22.8 %; Mean Corpuscular Hemoglobin 30.5 pg (25-34); Mean Corpuscular Volume 89.6 fL (80-100); Mean Platelet Volume 8.3 fL (7.4-10.4); Monocytes # (auto) 0.77 K/uL (0.11-0.59); Monocytes % (auto) 9.9 %; Neutrophils # (auto) 5.15 K/uL (1.4-6.5); Neutrophils % (auto) 66.1 %; Platelet Count 188 K/uL (130-400); RDW Coefficient of Variation 14.5 % (11.5-14.5); RDW Standard Deviation 47.7 fL (36.4-46.3); Red Blood Count 4.53 M/uL (4.7-6.1); White Blood Count 7.78 K/uL (4.8-10.8)
[2021-09-15 06:41] LABS: BUN Creatinine Ratio 24.7 (10-20); C Reactive Protein 4.79 mg/dl (0-0.5); Calcium 8.7 mg/dl (8.5-10.1); Creatinine Clr Calc Pharmacy 144.9 ml/min; Est GFR (African American) 102.3 ml/min; Est GFR (Non-African American) 88.3 ml/min; Potassium 4.1 mmol/L (3.5-5.1)
[2021-09-15] MEDS: METOPROLOL SUCC 50MG EXT REL TAB PO SCH ×2 (07:39→21:21)
[2021-09-15] MEDS: PANTOprazole 40 MG TAB PO PRN (07:39)
[2021-09-15] MEDS: GABAPENTIN 600 MG TAB PO SCH ×2 (07:39→21:18)
[2021-09-15] MEDS: LIDOCAINE 5% 1 PATCH TD SCH (07:40)
[2021-09-15] MEDS: KETOROLAC 30 MG/ML VIAL IV PRN ×3 (07:43→21:17)
[2021-09-15] MEDS: MAGNESIUM OXIDE 400 MG TAB PO SCH ×2 (08:08→21:18)
[2021-09-15] MEDS: POTASSIUM CHLORIDE CRTAB 20 MEQ TABCR PO SCH (08:09)
[2021-09-15] MEDS: FERROUS SULFATE 325 MG TAB PO SCH (08:09)
--- NOTE | 2021-09-15 13:31 | Hospitalist Progress Note ---
Date of Service September 15, 2021 Assessment & Plan (1) Gram-positive bacteremia: (2) Discitis of lumbar region: (3) A-fib: (4) Morbid obesity: Plan: 61 year old morbidly obese male presenting with acute onset low back pain for the past 5 days, acutely worsened over the past 2 days. Enterococcus faecalis bacteremia with suspected diskitis and epidural abscess- Blood clx with enterococcus in 2/2 clx, repeat blood clx 4/2 also with enteroccus in 1/2 bottle, repeat blood culture /3 pending, repeat blood culture until clearance of bacteremia. MRI reviewed- concern for diskitis and epidural abscess. CRP, ESR elevated but improving normal WBC, procal negative. Not sick or septic looking. -Daptomycin/Zosyn de-escalated to ampicillin based on culture results. - Evaluation by Dr. Goff and ID pending -Repeat MRI in 5 to 7 days per radiology. - Continue pain management and antibiotics Paroxsymal Afib- continue toprol and cardizem. Continue xarelto as currently no plans for any procedure. HTN- stable, on toprol and cardizem Morbid obesity- BMI 65. Weight loss recommended hypothyroidism- continue synthroid DVT prophylaxis- xarelto Dispo- pending clearance of bacteremia, on IV antibiotics, repeat MRI in 5-7 days. Will need IV antibiotics, ID eval pending, might need transfer to tertiary center but patient declining currently Admission and Anticipated Discharge Date Admission Date: September 12, 2021 Subjective Patient was seen and examined at bedside. Pain is controlled today, 07/24. States the combination of lidocaine patch and Toradol is working good. Pain characteristic is still the same. No bowel bladder incontinence or perineal paresthesia. No fever, chills, chest pain, shortness of breath, nausea or vomiting. Awaiting evaluation by Dr. Goff and ID. He reports that he does not want to be transferred to [place]. Physical Exam Physical Exam: General: Morbidly obese, Lying in bed, not in acute distress, on room air HEENT: EOMI, JEFFRY, MMM Chest: Clear breath sounds anteriorly, no wheezes or crackles CVS: Regular rate and rhythm, normal heart sounds, no murmur Abdomen: Soft, non tender, not distended, normal bowel sounds Neuro: Awake, alert, oriented, conversing well, non focal Extremities: No cyanosis, clubbing or edema Results & Data Results & Data ([facility]) Vital Signs (Past 12 Hours) Vital Signs Temp Pulse Resp BP Pulse Ox 09/15/21 07:16 36.8 C 102 H 16 137/100 95 Laboratory Results Short CBC 09/15/21 Range/Units 05:40 WBC 7.78 (4.8-10.8) K/uL Hgb 13.8 L (14.0-18.0) g/dL Hct 40.6 L (42-52) % Plt Count 188 (130-400) K/uL BMP 09/15/21 05:40 Sodium 139 Potassium 4.1 Chloride 101 Carbon Dioxide 31 BUN 23 Creatinine 0.93 Glucose 92 Calcium 8.7 Medications Administered Current Inpatient Medications Acetaminophen (Acetaminophen 325 Mg Tab) 650 mg PO Q4H PRN PRN Reason: pain/fever Stop: 10/12/21 23:40 Last Admin: 09/13/21 15:55 Dose: 650 mg Documented by: Diclofenac Sodium (Diclofenac Sod 1% Gel 100 Gm Tube) 2 gm EXT QID PRN PRN Reason: Pain Stop: 10/12/21 23:40 Diltiazem HCl (Diltiazem Hcl 120 Mg Er Cap) 240 mg PO QAM [facility] Stop: 10/13/21 08:59 Last Admin: 09/15/21 07:39 Dose: 240 mg Documented by: Ergocalciferol (Ergocalciferol 50,000 Units 1250 Mcg Cap) 50,000 units PO Vargas@0900 [facility] Stop: 10/14/21 08:59 Last Admin: 09/14/21 08:41 Dose: 50,000 units Documented by: Ferrous Sulfate (Ferrous Sulfate 325 Mg Tab) 325 mg PO QAM [facility] Stop: 10/13/21 08:59 Last Admin: 09/15/21 08:09 Dose: 325 mg Documented by: Furosemide (Furosemide 40 Mg Tab) 40 mg PO QAM PRN PRN Reason: Edema Stop: 10/12/21 23:40 Gabapentin (Gabapentin 600 Mg Tab) 600 mg PO AMHS [facility] Stop: 10/13/21 08:59 Last Admin: 09/15/21 07:39 Dose: 600 mg Documented by: Ampicillin Sodium 2,000 mg/ (Sodium Chloride) 100 mls @ 200 mls/hr IV Q4H [facility]; Protocol Stop: 09/29/21 13:59 Ketorolac Tromethamine (Ketorolac 30 Mg/Ml Vial) 30 mg IV Q6H PRN PRN Reason: Severe Pain Stop: 09/20/21 09:37 Last Admin: 09/15/21 07:43 Dose: 30 mg Documented by: Levothyroxine Sodium (Levothyroxine Sodium 125 Mcg Tablet) 125 mcg PO DAILYBB [facility] Stop: 10/13/21 06:29 Last Admin: 09/15/21 05:38 Dose: 125 mcg Documented by: Lidocaine (Lidocaine 5% 1 Patch) 1 patch TD QAM [facility] Stop: 10/14/21 09:44 Last Admin: 09/15/21 07:40 Dose: 1 patch Documented by: Magnesium Oxide (Magnesium Oxide 400 Mg Tab) 400 mg PO BID [facility] Stop: 10/13/21 08:59 Last Admin: 09/15/21 08:08 Dose: 400 mg Documented by: Melatonin (Melatonin 3 Mg Tab) 6 mg PO HS PRN PRN Reason: Sleep Stop: 10/13/21 17:19 Metoprolol Succinate (Metoprolol Succ 50mg Ext Rel Tab) 100 mg PO BID [facility] Stop: 10/13/21 08:59 Last Admin: 09/15/21 07:39 Dose: 100 mg Documented by: Miscellaneous (Remove Lidoderm Patch) 1 ea N/A DAILY@2100 [facility] Stop: 10/14/21 20:59 Last Admin: 09/14/21 21:04 Dose: 1 ea Documented by: Morphine Sulfate (Morphine Sulfate 4 Mg/Ml 1 Ml Carp\Vial) 4 mg IV Q4 PRN PRN Reason: Pain Stop: 09/28/21 09:40 Last Admin: 09/15/21 03:23 Dose: 4 mg Documented by: Oxycodone HCl (Oxycodone Hcl Ir 5 Mg Tab (Immediate Release)) 5 mg PO Q6H PRN PRN Reason: pain Stop: 09/26/21 23:40 Last Admin: 09/15/21 04:09 Dose: 5 mg Documented by: Pantoprazole Sodium (Pantoprazole 40 Mg Tab) 40 mg PO DAILY PRN PRN Reason: Gi Upset Stop: 10/12/21 23:40 Last Admin: 09/15/21 07:39 Dose: 40 mg Documented by: Polyethylene Glycol (Polyethylene (Miralax) 17 Gm Pack) 17 gm PO DAILY PRN PRN Reason: Constipation Stop: 10/12/21 23:40 Potassium Chloride (Potassium Chloride Crtab 20 Meq Tabcr) 20 meq PO DAILY [facility] Stop: 10/14/21 08:59 Last Admin: 09/15/21 08:09 Dose: 20 meq Documented by: Rivaroxaban (Rivaroxaban 20 Mg Tab) 20 mg PO PM [facility] Stop: 10/13/21 20:59 Last Admin: 09/14/21 21:01 Dose: 20 mg Documented by: Trazodone HCl (Trazodone Hcl 50 Mg Tab) 150 mg PO QPM PRN PRN Reason: Sleep Stop: 10/12/21 23:40 Last Admin: 09/14/21 23:54 Dose: 150 mg Documented by: (1) A-fib Atrial fibrillation type: paroxysmal Qualified Code(s): I48.0 - Paroxysmal atrial fibrillation
[2021-09-15] MEDS: AMPICILLIN 2,000 MG in SODIUM CHLOR 0.9% AD-VAN 100 ML IV SCH ×3 (13:55→21:24)
--- NOTE | 2021-09-15 14:03 | Orthopedic Consultation ---
Date of Consultation September 15, 2021 Assessment & Plan (1) Discitis of lumbar region: Assessment L2-L3 discitis with evidence of epidural abscess. Plan at this time he seems to be responding to the IV antibiotics. I did explain to the patient the majority of patients do respond to IV antibiotics only did not require surgical intervention. If however he does decline and require surgical intervention he would require transfer to a tertiary care facility. His health condition body habitus place him at extreme with risk then we would not be able to perform a procedure at this institution. Patient stands and agrees. History of Present Illness Reason for Consultation: Back pain possible discitis Attending Physician: Osmin Almonte MD History of Present Illness This is a 61-year-old male presents with worsening back pain subsequently admitted and underwent an MRI of the lumbar spine with suspicions of L2-L3 discitis noted. In light of his bacteremia this seems to be the most likely etiology. Today he states his pain is steadily improving. Is able to transfer to the chair. He is doing some short walks in the room. He denies any leg pain numbness or tingling. Allergies Allergy/AdvReac Type Severity Reaction Status Date / Time No Known Allergies Allergy ` Verified 09/12/21 17:41 Home Medications Medication Instructions Recorded Confirmed Type diclofenac sodium 1 % topical gel 2 g TOPICAL QID PRN 11/24/18 09/12/21 History diltiazem HCl 240 mg 240 mg PO QAM 11/24/18 09/12/21 History tablet,extended release 24 hr ergocalciferol (vitamin D2) 1,250 50,000 unit PO WK 11/24/18 09/12/21 History mcg (50,000 unit) capsule (Vitamin D2) magnesium oxide 400 mg PO BID 11/24/18 09/12/21 History meloxicam 15 mg tablet 15 mg PO QAM 11/24/18 09/12/21 History metoprolol succinate 100 mg 100 mg PO BID 11/24/18 09/12/21 History tablet,extended release 24 hr pantoprazole 40 mg tablet,delayed 40 mg PO DAILY PRN 11/24/18 09/12/21 History release rivaroxaban 20 mg tablet (Xarelto) 20 mg PO PM 11/24/18 09/12/21 History trazodone 50 mg tablet 150 mg PO QPM PRN 11/24/18 09/12/21 History ferrous sulfate 325 mg (65 mg 325 mg PO QAM 11/28/18 09/12/21 History iron) tablet (iron) ibuprofen 200 mg tablet (Advil) 200 mg PO Q6H PRN 11/28/18 09/12/21 History furosemide 40 mg tablet (Lasix) 40 mg PO QAM PRN 08/01/19 09/12/21 History gabapentin 300 mg capsule 600 mg PO AMHS 08/01/19 09/12/21 History potassium chloride 20 mEq oral 20 meq PO QPM 08/01/19 09/12/21 History packet (Klor-Con) naproxen sodium 220 mg capsule 220 mg PO Q12H PRN 04/28/20 09/12/21 History (Aleve) levothyroxine 125 mcg tablet 125 mcg PO DAILY 09/10/21 09/12/21 History oxycodone 5 mg tablet 5 mg PO Q6H PRN #8 tab 09/10/21 09/12/21 Rx tramadol 50 mg tablet 50 mg PO TID PRN 09/12/21 09/12/21 History Patient History Medical History Chronic anticoagulation Coronary artery disease "moderate disease per cardiac cath [facility] 2013; 50% LAD, 40% RCA" Depression Diabetes mellitus type 2, controlled History of colonic polyps History of urinary calculi "right ureteral stone 2015" Hx of sciatica Hypertension Hypothyroidism Insomnia Iron deficiency anemia "heme + stool 2015, subsequent EGD and colonoscopy neg except for polyp" Lumbar disc herniation Lumbar radiculopathy Morbid obesity Paroxysmal atrial fibrillation Ventricular septal defect Vitamin B12 deficiency Surgical History Status post cardiac catheterization "[place] 2013, 50% LAD, 40% RCA" Status post cystoscopy "with right ureteroscopy, laser lithotripsy, basket stone extraction" Status post gastric bypass for obesity Social History Smoking Status: Never smoker Hx Alcohol Use: Yes Alcohol type: beer Hx Substance Use: No Preferred Language: Omani Communication Ability: Effective Hearing Ability: Normal Precipitator Required: No Beliefs That Will Affect Care: None marital status: single Current Living Situation: Alone Other Information That Helps Us Care for You: No Feels Safe at Home: Yes Safety Concerns: Feels Safe At This Time Assistive Devices: Walker Physical Exam Physical Exam: On exam is alert and oriented and cooperative. He is has good strength testing lower extremities. He does not appear to be in acute distress. Results & Data ([facility]) Vital Signs (Past 12 Hours) Vital Signs Temp Pulse Resp BP Pulse Ox 09/15/21 07:16 36.8 C 102 H 16 137/100 95
[2021-09-15] MEDS: traZODone HCL 50 MG TAB PO PRN (21:17)
[2021-09-15] MEDS: RIVAROXABAN 20 MG TAB PO SCH (21:18)
[2021-09-16] MEDS: AMPICILLIN 2,000 MG in SODIUM CHLOR 0.9% AD-VAN 100 ML IV SCH ×6 (01:58→22:52)
[2021-09-16] MEDS: MoRPHine SULFATE 4 MG/ML 1 ML CARP\\VIAL IV PRN ×2 (02:01→08:47)
[2021-09-16] MEDS: LEVOTHYROXINE SODIUM 125 MCG TABLET PO SCH (05:43)
[2021-09-16] MEDS: KETOROLAC 30 MG/ML VIAL IV PRN ×3 (05:45→17:50)
[2021-09-16 07:28] LABS: Creatinine Clr Calc Pharmacy 187.1 ml/min; Est GFR (African American) 116.7 ml/min; Est GFR (Non-African American) 100.7 ml/min
[2021-09-16] MEDS: METOPROLOL SUCC 50MG EXT REL TAB PO SCH ×2 (08:49→20:34)
[2021-09-16] MEDS: MAGNESIUM OXIDE 400 MG TAB PO SCH ×2 (08:49→20:34)
[2021-09-16] MEDS: GABAPENTIN 600 MG TAB PO SCH ×2 (08:49→20:34)
[2021-09-16] MEDS: POTASSIUM CHLORIDE CRTAB 20 MEQ TABCR PO SCH (08:49)
[2021-09-16] MEDS: PANTOprazole 40 MG TAB PO PRN (08:50)
[2021-09-16] MEDS: LIDOCAINE 5% 1 PATCH TD SCH (08:50)
[2021-09-16] MEDS: FERROUS SULFATE 325 MG TAB PO SCH (08:50)
[2021-09-16] MEDS: DICLOFENAC SOD 1% GEL 100 GM TUBE EXT PRN (08:50)
[2021-09-16] MEDS: oxyCODONE HCL IR 5 MG TAB (IMMEDIATE RELEASE) PO PRN ×3 (10:35→20:38)
[2021-09-16] MEDS: SACCHAROMYCES BOULARDII 250 MG CAP PO SCH ×2 (11:35→20:35)
--- NOTE | 2021-09-16 12:54 | Hospitalist Progress Note ---
Date of Service September 16, 2021 Assessment & Plan (1) Gram-positive bacteremia: (2) Discitis of lumbar region: (3) A-fib: (4) Morbid obesity: Plan: 61 year old morbidly obese male presenting with acute onset low back pain for the past 5 days, acutely worsened over the past 2 days. Enterococcus faecalis bacteremia with diskitis and epidural abscess- Blood clx with enterococcus in 2/2 clx, repeat blood clx /2 also with enteroccus in 1/2 bottle, repeat blood culture 09/14 negative till date, repeat blood culture until clearance of bacteremia. MRI reviewed- concern for diskitis and epidural abscess. CRP, ESR elevated but improving normal WBC, procal negative. Not sick or septic looking. -Daptomycin/Zosyn de-escalated to ampicillin 09/15 based on culture results. Seen by ID -continue IV ampicillin 2 g every 4 hours, anticipate 6 to 8 weeks of IV antibiotic therapy, - repeat MRI in 6 to 8 weeks to determine final duration of antibiotic therapy however repeat MRI earlier if patient clinically deteriorates or symptoms worsen while on antibiotic therapy. - place PICC line once repeat blood cultures remains negative for at least 48 to 72 hours. - Weekly CBC with differential and BMP in Bioclate CRP while on antibiotic therapy with - Outpatient dental evaluation. - TTE with no mention of vegetations Seen by Dr. Goff-patient should continue to improve on IV antibiotics, however if he declines and requires surgical intervention, he would require transfer to tertiary care facility given his body habitus Paroxsymal Afib- continue toprol and cardizem. Continue xarelto as currently no plans for any procedure. HTN- stable, on toprol and cardizem Morbid obesity- BMI 65. Weight loss recommended hypothyroidism- continue synthroid DVT prophylaxis- xarelto Dispo-needs IV ampicillin for 6 to 8 weeks, needs PICC line after clearance of bacteremia. Admission and Anticipated Discharge Date Admission Date: September 12, 2021 Subjective Patient was seen and examined at bedside. Denies any new issues. Pain is currently 2 out of 10. Pain does not last long and is okay with discontinuing. Oxycodone was uptitrated as it was not adequate. Toradol seems to be helping but discussed about risk with him being on Xarelto and possibility of renal dysfunction. Denies any fever, chills, chest pain or shortness of breath no na usea or vomiting. No change in character of the pain. No bowel bladder incontinence. No perineal prostate. Physical Exam Physical Exam: General: Morbidly obese, Lying in bed, not in acute distress, on room air HEENT: EOMI, JEFFRY, MMM Chest: Clear breath sounds anteriorly, no wheezes or crackles CVS: Regular rate and rhythm, normal heart sounds, no murmur Abdomen: Soft, non tender, not distended, normal bowel sounds Neuro: Awake, alert, oriented, conversing well, non focal Extremities: No cyanosis, clubbing or edema Results & Data Results & Data ([facility]) Vital Signs (Past 12 Hours) Vital Signs Temp Pulse Resp BP Pulse Ox 09/16/21 07:35 36.8 C 96 H 18 153/95 H 93 Laboratory Results BMP 09/16/21 06:35 Creatinine 0.72 Medications Administered Current Inpatient Medications Acetaminophen (Acetaminophen 325 Mg Tab) 650 mg PO Q4H PRN PRN Reason: pain/fever Stop: 10/12/21 23:40 Last Admin: 09/13/21 15:55 Dose: 650 mg Documented by: Diclofenac Sodium (Diclofenac Sod 1% Gel 100 Gm Tube) 2 gm EXT QID PRN PRN Reason: Pain Stop: 10/12/21 23:40 Last Admin: 09/16/21 08:50 Dose: 2 gm Documented by: Diltiazem HCl (Diltiazem Hcl 120 Mg Er Cap) 240 mg PO QAM [facility] Stop: 10/13/21 08:59 Last Admin: 09/16/21 08:50 Dose: 240 mg Documented by: Ergocalciferol (Ergocalciferol 50,000 Units 1250 Mcg Cap) 50,000 units PO Vargas@0900 [facility] Stop: 10/14/21 08:59 Last Admin: 09/14/21 08:41 Dose: 50,000 units Documented by: Ferrous Sulfate (Ferrous Sulfate 325 Mg Tab) 325 mg PO QAM [facility] Stop: 10/13/21 08:59 Last Admin: 09/16/21 08:50 Dose: 325 mg Documented by: Furosemide (Furosemide 40 Mg Tab) 40 mg PO QAM PRN PRN Reason: Edema Stop: 10/12/21 23:40 Gabapentin (Gabapentin 600 Mg Tab) 600 mg PO AMHS [facility] Stop: 10/13/21 08:59 Last Admin: 09/16/21 08:49 Dose: 600 mg Documented by: Ampicillin Sodium 2,000 mg/ (Sodium Chloride) 100 mls @ 200 mls/hr IV Q4H [facility]; Protocol Stop: 09/29/21 13:59 Last Infusion: 09/16/21 14:56 Dose: Infused Documented by: Ketorolac Tromethamine (Ketorolac 30 Mg/Ml Vial) 30 mg IV Q6H PRN PRN Reason: Severe Pain Stop: 09/20/21 09:37 Last Admin: 09/16/21 11:38 Dose: 30 mg Documented by: Levothyroxine Sodium (Levothyroxine Sodium 125 Mcg Tablet) 125 mcg PO DAILYBB [facility] Stop: 10/13/21 06:29 Last Admin: 09/16/21 05:43 Dose: 125 mcg Documented by: Lidocaine (Lidocaine 5% 1 Patch) 1 patch TD QAM [facility] Stop: 10/14/21 09:44 Last Admin: 09/16/21 08:50 Dose: 1 patch Documented by: Magnesium Oxide (Magnesium Oxide 400 Mg Tab) 400 mg PO BID [facility] Stop: 10/13/21 08:59 Last Admin: 09/16/21 08:49 Dose: 400 mg Documented by: Melatonin (Melatonin 3 Mg Tab) 6 mg PO HS PRN PRN Reason: Sleep Stop: 10/13/21 17:19 Metoprolol Succinate (Metoprolol Succ 50mg Ext Rel Tab) 100 mg PO BID [facility] Stop: 10/13/21 08:59 Last Admin: 09/16/21 08:49 Dose: 100 mg Documented by: Miscellaneous (Remove Lidoderm Patch) 1 ea N/A DAILY@2100 [facility] Stop: 10/14/21 20:59 Last Admin: 09/15/21 21:22 Dose: 1 ea Documented by: Oxycodone HCl (Oxycodone Hcl Ir 5 Mg Tab (Immediate Release)) 10 mg PO Q4H PRN PRN Reason: pain Stop: 09/30/21 08:43 Last Admin: 09/16/21 14:56 Dose: 10 mg Documented by: Pantoprazole Sodium (Pantoprazole 40 Mg Tab) 40 mg PO DAILY PRN PRN Reason: Gi Upset Stop: 10/12/21 23:40 Last Admin: 09/16/21 08:50 Dose: 40 mg Documented by: Polyethylene Glycol (Polyethylene (Miralax) 17 Gm Pack) 17 gm PO DAILY PRN PRN Reason: Constipation Stop: 10/12/21 23:40 Potassium Chloride (Potassium Chloride Crtab 20 Meq Tabcr) 20 meq PO DAILY ABDI Stop: 10/14/21 08:59 Last Admin: 09/16/21 08:49 Dose: 20 meq Documented by: Rivaroxaban (Rivaroxaban 20 Mg Tab) 20 mg PO PM ABDI Stop: 10/13/21 20:59 Last Admin: 09/15/21 21:18 Dose: 20 mg Documented by: Saccharomyces Boulardii (Saccharomyces Boulardii 250 Mg Cap) 250 mg PO BID ABDI Stop: 10/16/21 10:29 Last Admin: 09/16/21 11:35 Dose: 250 mg Documented by: Trazodone HCl (Trazodone Hcl 50 Mg Tab) 150 mg PO QPM PRN PRN Reason: Sleep Stop: 10/12/21 23:40 Last Admin: 09/15/21 21:17 Dose: 150 mg Documented by: (1) A-fib Atrial fibrillation type: paroxysmal Qualified Code(s): I48.0 - Paroxysmal atrial fibrillation
[2021-09-16] MEDS: RIVAROXABAN 20 MG TAB PO SCH (20:34)
[2021-09-17] MEDS: AMPICILLIN 2,000 MG in SODIUM CHLOR 0.9% AD-VAN 100 ML IV SCH ×6 (02:21→21:23)
[2021-09-17] MEDS: oxyCODONE HCL IR 5 MG TAB (IMMEDIATE RELEASE) PO PRN ×4 (02:57→20:16)
[2021-09-17] MEDS: KETOROLAC 30 MG/ML VIAL IV PRN ×3 (04:11→18:24)
[2021-09-17] MEDS: LEVOTHYROXINE SODIUM 125 MCG TABLET PO SCH (05:50)
[2021-09-17] MEDS ORDERED: MICONAZOLE NITRATE POWDER 43 GM EXT PRN (06:05)
[2021-09-17] MEDS: FERROUS SULFATE 325 MG TAB PO SCH (08:07)
[2021-09-17] MEDS: GABAPENTIN 600 MG TAB PO SCH ×2 (08:08→21:16)
[2021-09-17] MEDS: METOPROLOL SUCC 50MG EXT REL TAB PO SCH ×2 (08:08→21:16)
[2021-09-17] MEDS: SACCHAROMYCES BOULARDII 250 MG CAP PO SCH ×2 (08:08→21:16)
[2021-09-17] MEDS: MAGNESIUM OXIDE 400 MG TAB PO SCH ×2 (08:08→21:17)
[2021-09-17] MEDS: LIDOCAINE 5% 1 PATCH TD SCH (08:08)
[2021-09-17] MEDS: POTASSIUM CHLORIDE CRTAB 20 MEQ TABCR PO SCH (08:08)
[2021-09-17 08:12] LABS: Hematocrit (blood only) 42.2 % (42-52); Mean Corpuscular Hemoglobin 29.8 pg (25-34); Mean Corpuscular Hgb Conc 33.2 g/dL (32-36); Mean Corpuscular Volume 89.8 fL (80-100); Mean Platelet Volume 8.6 fL (7.4-10.4); Platelet Count 187 K/uL (130-400); RDW Coefficient of Variation 14.2 % (11.5-14.5); RDW Standard Deviation 46.8 fL (36.4-46.3); White Blood Count 8.81 K/uL (4.8-10.8)
[2021-09-17 08:40] LABS: BUN Creatinine Ratio 24.7 (10-20); C Reactive Protein 7.03 mg/dl (0-0.5); Calcium 8.5 mg/dl (8.5-10.1); Creatinine Clr Calc Pharmacy 158.5 ml/min; Potassium 3.9 mmol/L (3.5-5.1)
[2021-09-17] MEDS: DICLOFENAC SOD 1% GEL 100 GM TUBE EXT PRN (13:40)
--- NOTE | 2021-09-17 13:50 | Hospitalist Progress Note ---
Date of Service September 17, 2021 Assessment & Plan (1) Gram-positive bacteremia: (2) Discitis of lumbar region: (3) A-fib: (4) Morbid obesity: Plan: 61 year old morbidly obese male presenting with acute onset low back pain for the past several days found to have Enterococcus bacteremia, diskitis and epidural abscess. Enterococcus faecalis bacteremia with diskitis and epidural abscess - Blood clx / with enterococcus in 2/2 clx, repeat blood clx 2 also with enteroccus in 1/2 bottle -repeat blood culture 09/14 negative x 48 hours. -MRI reviewed- concern for diskitis and epidural abscess. CRP, ESR elevated but improving normal WBC, procal negative. Not sick or septic looking. -Daptomycin/Zosyn de-escalated to ampicillin 09/15 based on culture results. Seen by ID -continue IV ampicillin 2 g every 4 hours, anticipate 6 to 8 weeks of IV antibiotic therapy, - repeat MRI in 6 to 8 weeks to determine final duration of antibiotic therapy however repeat MRI earlier if patient clinically deteriorates or symptoms worsen while on antibiotic therapy. - place PICC line once repeat blood cultures remains negative for 72 hours. - Weekly CBC with differential and BMP in Bioclate CRP while on antibiotic therapy with - Outpatient dental evaluation. - TTE with no mention of vegetations Seen by Dr. Goff-patient should continue to improve on IV antibiotics, however if he declines and requires surgical intervention, he would require transfer to tertiary care facility given his body habitus Paroxsymal Afib - continue toprol and cardizem. Continue xarelto as currently no plans for any procedure. HTN - stable, on toprol and cardizem Morbid obesity - BMI 65. Weight loss recommended hypothyroidism - continue synthroid DVT prophylaxis- xarelto Dispo-needs IV ampicillin for 6 to 8 weeks, needs PICC line after clearance of bacteremia. PT/OT evaluation ordered Admission and Anticipated Discharge Date Admission Date: September 12, 2021 Subjective Patient reports pain is tolerable at rest but increases significantly with movement. Toradol helps relieve pain Patient denies new weakness, numbness Had 2 soft BM today Tolerating diet Concerned about getting discharged too soon/before pain is controlled. Still does not feel back to his baseline physical state due to pain Physical Exam Physical Exam: Morbidly obese, pleasant, no acute distress Respiratory: Breathing comfortably on room air, no wheezing/rhonchi/rales Cardiovascular: Regular rate and rhythm, no murmurs/rubs/gallops Gastrointestinal (Abdomen): Obese, soft, non tender Musculoskeletal: No edema Neurologic: awake, alert, sensation and movement in lower extremities are intact Results & Data Results & Data ([facility]) Vital Signs (Past 12 Hours) Vital Signs Temp Pulse Resp BP Pulse Ox 09/17/21 07:48 36.8 C 90 18 116/75 93 Laboratory Results Short CBC 09/17/21 Range/Units 07:42 WBC 8.81 (4.8-10.8) K/uL Hgb 14.0 (14.0-18.0) g/dL Hct 42.2 (42-52) % Plt Count 187 (130-400) K/uL BMP 09/17/21 07:42 Sodium 138 Potassium 3.9 Chloride 102 Carbon Dioxide 33 H BUN 21 Creatinine 0.85 Glucose 91 Calcium 8.5 Medications Administered Current Inpatient Medications Acetaminophen (Acetaminophen 325 Mg Tab) 650 mg PO Q4H PRN PRN Reason: pain/fever Stop: 10/12/21 23:40 Last Admin: 09/13/21 15:55 Dose: 650 mg Documented by: Diclofenac Sodium (Diclofenac Sod 1% Gel 100 Gm Tube) 2 gm EXT QID PRN PRN Reason: Pain Stop: 10/12/21 23:40 Last Admin: 09/17/21 13:40 Dose: 2 gm Documented by: Diltiazem HCl (Diltiazem Hcl 120 Mg Er Cap) 240 mg PO QAM [facility] Stop: 10/13/21 08:59 Last Admin: 09/17/21 08:07 Dose: 240 mg Documented by: Ergocalciferol (Ergocalciferol 50,000 Units 1250 Mcg Cap) 50,000 units PO Vargas@ 0900 [facility] Stop: 10/14/21 08:59 Last Admin: 09/14/21 08:41 Dose: 50,000 units Documented by: Ferrous Sulfate (Ferrous Sulfate 325 Mg Tab) 325 mg PO QAM [facility] Stop: 10/13/21 08:59 Last Admin: 09/17/21 08:07 Dose: 325 mg Documented by: Furosemide (Furosemide 40 Mg Tab) 40 mg PO QAM PRN PRN Reason: Edema Stop: 10/12/21 23:40 Gabapentin ([facility] 600 Mg Tab) [facility] Stop: 10/13/21 08:59 Last Admin: 09/17/21 08:08 Dose: 600 mg Documented by: Ampicillin Sodium 2,000 mg/ (Sodium Chloride) 100 mls @ 200 mls/hr IV Q4H [facility]; Protocol Stop: 09/29/21 13:59 Last Admin: 09/17/21 13:42 Dose: 200 mls/hr Documented by: Ketorolac Tromethamine (Ketorolac 30 Mg/Ml Vial) 30 mg IV Q6H PRN PRN Reason: Severe Pain Stop: 09/20/21 09:37 Last Admin: 09/17/21 11:52 Dose: 30 mg Documented by: Levothyroxine Sodium (Levothyroxine Sodium 125 Mcg Tablet) 125 mcg PO DAILYBB [facility] Stop: 10/13/21 06:29 Last Admin: 09/17/21 05:50 Dose: 125 mcg Documented by: Lidocaine (Lidocaine 5% 1 Patch) 1 patch TD QAM [facility] Stop: 10/14/21 09:44 Last Admin: 09/17/21 08:08 Dose: 1 patch Documented by: Magnesium Oxide (Magnesium Oxide 400 Mg Tab) 400 mg PO BID [facility] Stop: 10/13/21 08:59 Last Admin: 09/17/21 08:08 Dose: 400 mg Documented by: Melatonin (Melatonin 3 Mg Tab) 6 mg PO HS PRN PRN Reason: Sleep Stop: 10/13/21 17:19 Metoprolol Succinate (Metoprolol Succ 50mg Ext Rel Tab) 100 mg PO BID [facility] Stop: 10/13/21 08:59 Last Admin: 09/17/21 08:08 Dose: 100 mg Documented by: Miconazole Nitrate (Miconazole Nitrate Powder 43 Gm) 1 appln EXT PRN PRN PRN Reason: Affected Skin Folds Stop: 10/17/21 06:04 Miscellaneous (Remove Lidoderm Patch) 1 ea N/A DAILY@2100 [facility] Stop: 10/14/21 20:59 Last Admin: 09/16/21 20:35 Dose: Not Given Documented by: Oxycodone HCl (Oxycodone Hcl Ir 5 Mg Tab (Immediate Release)) 10 mg PO Q4H PRN PRN Reason: pain Stop: 09/30/21 08:43 Last Admin: 09/17/21 08:07 Dose: 10 mg Documented by: Pantoprazole Sodium (Pantoprazole 40 Mg Tab) 40 mg PO DAILY PRN PRN Reason: Gi Upset Stop: 10/12/21 23:40 Last Admin: 09/16/21 08:50 Dose: 40 mg Documented by: Polyethylene Glycol (Polyethylene (Miralax) 17 Gm Pack) 17 gm PO DAILY PRN PRN Reason: Constipation Stop: 10/12/21 23:40 Potassium Chloride (Potassium Chloride Crtab 20 Meq Tabcr) 20 meq PO DAILY [facility] Stop: 10/14/21 08:59 Last Admin: 09/17/21 08:08 Dose: 20 meq Documented by: Rivaroxaban (Rivaroxaban 20 Mg Tab) 20 mg PO PM [facility] Stop: 10/13/21 20:59 Last Admin: 09/16/21 20:34 Dose: 20 mg Documented by: Saccharomyces Boulardii (Saccharomyces Boulardii 250 Mg Cap) 250 mg PO BID [facility] Stop: 10/16/21 10:29 Last Admin: 09/17/21 08:08 Dose: 250 mg Documented by: Trazodone HCl (Trazodone Hcl 50 Mg Tab) 150 mg PO QPM PRN PRN Reason: Sleep Stop: 10/12/21 23:40 Last Admin: 09/15/21 21:17 Dose: 150 mg Documented by: (1) A-fib Atrial fibrillation type: paroxysmal Qualified Code(s): I48.0 - Paroxysmal atrial fibrillation
[2021-09-17 20:20] LABS: Appearance Urine Clear (Clear); Bilirubin Urine Negative (Negative); Blood Urine Negative (Negative); Color Urine Dark Yellow; Glucose Urine UA Negative (Negative); Ketones Urine Negative (Negative); Leukocyte Esterase Urine Negative (Negative); Nitrite Urine Negative (Negative); Protein Urine Negative (Negative); Specific Gravity Urine 1.026 (1.000-1.030); Urobilinogen Urine Negative (Negative); pH Urine 5.5 (4.5-7.5)
[2021-09-17] MEDS: ACETAMINOPHEN 325 MG TAB PO SCH (21:16)
[2021-09-17] MEDS: RIVAROXABAN 20 MG TAB PO SCH (21:17)
[2021-09-18] MEDS: AMPICILLIN 2,000 MG in SODIUM CHLOR 0.9% AD-VAN 100 ML IV SCH ×6 (01:28→22:38)
[2021-09-18] MEDS: oxyCODONE HCL IR 5 MG TAB (IMMEDIATE RELEASE) PO PRN ×5 (02:58→20:58)
[2021-09-18] MEDS: LEVOTHYROXINE SODIUM 125 MCG TABLET PO SCH (05:52)
[2021-09-18] MEDS: KETOROLAC 30 MG/ML VIAL IV PRN ×3 (07:41→22:38)
[2021-09-18] MEDS: LIDOCAINE 5% 1 PATCH TD SCH (07:50)
[2021-09-18] MEDS: SACCHAROMYCES BOULARDII 250 MG CAP PO SCH ×2 (09:08→20:24)
[2021-09-18] MEDS: POTASSIUM CHLORIDE CRTAB 20 MEQ TABCR PO SCH (09:09)
[2021-09-18] MEDS: MAGNESIUM OXIDE 400 MG TAB PO SCH ×2 (09:09→20:23)
[2021-09-18] MEDS: ACETAMINOPHEN 325 MG TAB PO SCH ×3 (09:09→20:22)
[2021-09-18] MEDS: FERROUS SULFATE 325 MG TAB PO SCH (09:09)
[2021-09-18] MEDS: METOPROLOL SUCC 50MG EXT REL TAB PO SCH ×2 (09:09→20:28)
[2021-09-18] MEDS: GABAPENTIN 600 MG TAB PO SCH ×3 (09:09→20:22)
--- NOTE | 2021-09-18 12:17 | Hospitalist Progress Note ---
Date of Service September 18, 2021 Assessment & Plan (1) Gram-positive bacteremia: (2) Discitis of lumbar region: (3) A-fib: (4) Morbid obesity: Plan: 61 year old morbidly obese male presenting with acute onset low back pain for the past several days found to have Enterococcus bacteremia, diskitis and epidural abscess. Enterococcus faecalis bacteremia with diskitis and epidural abscess - Blood clx / with enterococcus in 2/2 clx, repeat blood clx 2 also with enteroccus in 1/2 bottle -repeat blood culture 09/14 negative x 48 hours. -MRI - concern for diskitis and epidural abscess. CRP, ESR elevated but improvin g normal WBC, procal negative. -Daptomycin/Zosyn de-escalated to ampicillin 09/15 based on culture results. Seen by ID -continue IV ampicillin 2 g every 4 hours, anticipate 6 to 8 weeks of IV antibiotic therapy, - repeat MRI in 6 to 8 weeks to determine final duration of antibiotic therapy however repeat MRI earlier if patient clinically deteriorates or symptoms worsen while on antibiotic therapy. - place PICC line once repeat blood cultures remains negative for 72 hours. - Weekly CBC with differential and BMP in Bioclate CRP while on antibiotic therapy with - Outpatient dental evaluation. - TTE with no mention of vegetations Seen by Orthopedic Surgeon -patient should continue to improve on IV antibiotics, however if he declines and requires surgical intervention, he would require transfer to tertiary care facility given his body habitus Pain control acetaminophen 650mg TID, gabapentin 600mg TID, oxycodone 10mg Q 4PRN, toradol IV PRN, lidocaine patch. Will continue regimen Dysuria -UA negative -recent CTA/P negative for stones Paroxsymal Afib - continue toprol and cardizem. Continue xarelto as currently no plans for any procedure. HTN - stable, on toprol and cardizem Morbid obesity - BMI 65. Weight loss recommended hypothyroidism - continue synthroid DVT prophylaxis- xarelto Dispo-needs IV ampicillin for 6 to 8 weeks, needs PICC line after clearance of bacteremia. PT/OT evaluation ordered Admission and Anticipated Discharge Date Admission Date: September 12, 2021 Subjective Still with pain, worsened with ambulation Reports he is getting out of bed to use rest room Reports dysuria Physical Exam Physical Exam: Obese, no acute distress, pleasant Respiratory: Breathing comfortably on room air, no wheezing/rhonchi/rales Cardiovascular: regular rate and rhythm, no murmurs/rubs/gallops Gastrointestinal (Abdomen): soft, non tender Musculoskeletal: no edema Skin: thickened, hyperpigmented lower extremities, no redness Neurologic: reportedly ambulating, denies saddle parasthesia Results & Data Results & Data ([facility]) Vital Signs (Past 12 Hours) Vital Signs Temp Pulse Pulse Resp BP BP Pulse Ox 09/18/21 07:50 37 C 88 20 144/96 H 96 09/18/21 00:31 36.4 C L 99 H 18 139/93 97 Laboratory Results Urine 09/17/21 Range/Units 20:00 Urine Color Dark Yellow Urine Appearance Clear (Clear) Urine pH 5.5 (4.5-7.5) Ur Specific [place] 1.026 (1.000-1.030) Urine Protein Negative (Negative) Urine Glucose (UA) Negative (Negative) Medications Administered Current Inpatient Medications Acetaminophen (Acetaminophen 325 Mg Tab) 650 mg PO TID [facility] Stop: 10/17/21 20:59 Last Admin: 09/18/21 09:09 Dose: 650 mg Documented by: Diclofenac Sodium (Diclofenac Sod 1% Gel 100 Gm Tube) 2 gm EXT QID PRN PRN Reason: Pain Stop: 10/12/21 23:40 Last Admin: 09/17/21 13:40 Dose: 2 gm Documented by: Diltiazem HCl (Diltiazem Hcl 120 Mg Er Cap) 240 mg PO QAM [facility] Stop: 10/13/21 08:59 Last Admin: 09/18/21 09:08 Dose: 240 mg Documented by: Ergocalciferol (Ergocalciferol 50,000 Units 1250 Mcg Cap) 50,000 units PO Vargas@0900 [facility] Stop: 10/14/21 08:59 Last Admin: 09/14/21 08:41 Dose: 50,000 units Documented by: Ferrous Sulfate (Ferrous Sulfate 325 Mg Tab) 325 mg PO QAM [facility] Stop: 10/13/21 08:59 Last Admin: 09/18/21 09:09 Dose: 325 mg Documented by: Furosemide (Furosemide 40 Mg Tab) 40 mg PO QAM PRN PRN Reason: Edema Stop: 10/12/21 23:40 Gabapentin (Gabapentin 600 Mg Tab) 600 mg PO TID [facility] Stop: 10/17/21 20:59 Last Admin: 09/18/21 09:09 Dose: 600 mg Documented by: Ampicillin Sodium 2,000 mg/ (Sodium Chloride) 100 mls @ 200 mls/hr IV Q4H [facility]; Protocol Stop: 09/29/21 13:59 Last Infusion: 09/18/21 09:39 Dose: Infused Documented by: Ketorolac Tromethamine (Ketorolac 30 Mg/Ml Vial) 30 mg IV Q6H PRN PRN Reason: Severe Pain Stop: 09/20/21 09:37 Last Admin: 09/18/21 07:41 Dose: 30 mg Documented by: Levothyroxine Sodium (Levothyroxine Sodium 125 Mcg Tablet) 125 mcg PO DAILYBB [facility] Stop: 10/13/21 06:29 Last Admin: 09/18/21 05:52 Dose: 125 mcg Documented by: Lidocaine (Lidocaine 5% 1 Patch) 1 patch TD QAM [facility] Stop: 10/14/21 09:44 Last Admin: 09/18/21 07:50 Dose: 1 patch Documented by: Magnesium Oxide (Magnesium Oxide 400 Mg Tab) 400 mg PO BID [facility] Stop: 10/13/21 08:59 Last Admin: 09/18/21 09:09 Dose: 400 mg Documented by: Melatonin (Melatonin 3 Mg Tab) 6 mg PO HS PRN PRN Reason: Sleep Stop: 10/13/21 17:19 Metoprolol Succinate (Metoprolol Succ 50mg Ext Rel Tab) 100 mg PO BID [facility] Stop: 10/13/21 08:59 Last Admin: 09/18/21 09:09 Dose: 100 mg Documented by: Miconazole Nitrate (Miconazole Nitrate Powder 43 Gm) 1 appln EXT PRN PRN PRN Reason: Affected Skin Folds Stop: 10/17/21 06:04 Last Admin: 09/17/21 17:54 Dose: 1 appln Documented by: Miscellaneous (Remove Lidoderm Patch) 1 ea N/A DAILY@2100 [facility] Stop: 10/14/21 20:59 Last Admin: 09/17/21 21:17 Dose: 1 ea Documented by: Oxycodone HCl (Oxycodone Hcl Ir 5 Mg Tab (Immediate Release)) 10 mg PO Q4H PRN PRN Reason: pain Stop: 09/30/21 08:43 Last Admin: 09/18/21 09:08 Dose: 10 mg Documented by: Pantoprazole Sodium (Pantoprazole 40 Mg Tab) 40 mg PO DAILY PRN PRN Reason: Gi Upset Stop: 10/12/21 23:40 Last Admin: 09/16/21 08:50 Dose: 40 mg Documented by: Polyethylene Glycol (Polyethylene (Miralax) 17 Gm Pack) 17 gm PO DAILY PRN PRN Reason: Constipation Stop: 10/12/21 23:40 Potassium Chloride (Potassium Chloride Crtab 20 Meq Tabcr) 20 meq PO DAILY [facility] Stop: 10/14/21 08:59 Last Admin: 09/18/21 09:09 Dose: 20 meq Documented by: Rivaroxaban (Rivaroxaban 20 Mg Tab) 20 mg PO PM [facility] Stop: 10/13/21 20:59 Last Admin: 09/17/21 21:17 Dose: 20 mg Documented by: Saccharomyces Boulardii (Saccharomyces Boulardii 250 Mg Cap) 250 mg PO BID [facility] Stop: 10/16/21 10:29 Last Admin: 09/18/21 09:08 Dose: 250 mg Documented by: Trazodone HCl (Trazodone Hcl 50 Mg Tab) 150 mg PO QPM PRN PRN Reason: Sleep Stop: 10/12/21 23:40 Last Admin: 09/15/21 21:17 Dose: 150 mg Documented by: (1) A-fib Atrial fibrillation type: paroxysmal Qualified Code(s): I48.0 - Paroxysmal atrial fibrillation
[2021-09-18] MEDS: RIVAROXABAN 20 MG TAB PO SCH (20:23)
[2021-09-19] MEDS: AMPICILLIN 2,000 MG in SODIUM CHLOR 0.9% AD-VAN 100 ML IV SCH ×6 (02:08→22:03)
[2021-09-19] MEDS: oxyCODONE HCL IR 5 MG TAB (IMMEDIATE RELEASE) PO PRN ×4 (02:13→20:19)
[2021-09-19] MEDS: KETOROLAC 30 MG/ML VIAL IV PRN ×2 (05:56→18:03)
[2021-09-19] MEDS: LEVOTHYROXINE SODIUM 125 MCG TABLET PO SCH (05:57)
[2021-09-19 06:53] LABS: Creatinine Clr Calc Pharmacy 141.8 ml/min; Est GFR (African American) 99.7 ml/min; Est GFR (Non-African American) 86.1 ml/min
[2021-09-19] MEDS: FERROUS SULFATE 325 MG TAB PO SCH (08:20)
[2021-09-19] MEDS: METOPROLOL SUCC 50MG EXT REL TAB PO SCH ×2 (08:20→20:16)
[2021-09-19] MEDS: ACETAMINOPHEN 325 MG TAB PO SCH ×3 (08:20→20:14)
[2021-09-19] MEDS: GABAPENTIN 600 MG TAB PO SCH ×3 (08:20→20:15)
[2021-09-19] MEDS: SACCHAROMYCES BOULARDII 250 MG CAP PO SCH ×2 (08:20→20:16)
[2021-09-19] MEDS: POTASSIUM CHLORIDE CRTAB 20 MEQ TABCR PO SCH (08:20)
[2021-09-19] MEDS: MAGNESIUM OXIDE 400 MG TAB PO SCH ×2 (08:20→20:15)
--- NOTE | 2021-09-19 10:08 | Hospitalist Progress Note ---
Date of Service September 19, 2021 Assessment & Plan (1) Gram-positive bacteremia: (2) Discitis of lumbar region: (3) A-fib: (4) Morbid obesity: Plan: 61 year old morbidly obese male presenting with acute onset low back pain for the past several days found to have Enterococcus bacteremia, diskitis and epidural abscess. Enterococcus faecalis bacteremia with diskitis and epidural abscess - Blood clx / with enterococcus in 2/2 clx, repeat blood clx /2 also with enteroccus in 1/2 bottle -repeat blood culture 09/14 negative x 48 hours. -MRI - concern for diskitis and epidural abscess. CRP, ESR elevated but improvin g normal WBC, procal negative. -Daptomycin/Zosyn de-escalated to ampicillin 09/15 based on culture results. Seen by ID -continue IV ampicillin 2 g every 4 hours, anticipate 6 to 8 weeks of IV antibiotic therapy, - repeat MRI in 6 to 8 weeks to determine final duration of antibiotic therapy however repeat MRI earlier if patient clinically deteriorates or symptoms worsen while on antibiotic therapy. -PICC line ordered - Weekly CBC with differential and BMP in Bioclate CRP while on antibiotic therapy with - Outpatient dental evaluation. - TTE with no mention of vegetations Seen by Orthopedic Surgeon -patient should continue to improve on IV antibiotics, however if he declines and requires surgical intervention, he would require transfer to tertiary care facility given his body habitus Pain control acetaminophen 650mg TID, gabapentin 600mg TID, oxycodone 10mg Q 4PRN, toradol IV PRN, lidocaine patch. Pain is slowly improving. Will continue regimen Dysuria -UA negative -recent CTA/P negative for stones Paroxsymal Afib - continue toprol and cardizem. Continue xarelto as currently no plans for any procedure. HTN - stable, on toprol and cardizem Morbid obesity - BMI 65. Weight loss recommended hypothyroidism - continue synthroid DVT prophylaxis- xarelto Dispo-needs IV ampicillin for 6 to 8 weeks,Plan for home infusion. PICC Line ordered. Estimated discharge Wednesday or Wednesday Admission and Anticipated Discharge Date Admission Date: September 12, 2021 Subjective Patient's pain is improved, still requiring intermittent doses of IV toradol Ambulating Tolerating diet No fever/chills Consented for PICC line Physical Exam Physical Exam: Obese, pleasant, no acute distress Respiratory: breathing comfortably on room air, no wheezing/rhonchi/rales Cardiovascular: regular rate and rhythm, no murmurs/rubs/gallops Gastrointestinal (Abdomen): soft, non tender Musculoskeletal: No edema Neurologic: awake, alert, spontaneously moving extremities Results & Data Results & Data ([facility]) Vital Signs (Past 12 Hours) Vital Signs Temp Pulse Resp BP Pulse Ox 09/19/21 07:14 36.8 C 83 16 147/90 H 95 Laboratory Results BMP 09/19/21 06:17 Creatinine 0.95 Medications Administered Current Inpatient Medications Acetaminophen (Acetaminophen 325 Mg Tab) 650 mg PO TID [facility] Stop: 10/17/21 20:59 Last Admin: 09/19/21 08:20 Dose: 650 mg Documented by: Diclofenac Sodium (Diclofenac Sod 1% Gel 100 Gm Tube) 2 gm EXT QID PRN PRN Reason: Pain Stop: 10/12/21 23:40 Last Admin: 09/17/21 13:40 Dose: 2 gm Documented by: Diltiazem HCl (Diltiazem Hcl 120 Mg Er Cap) 240 mg PO QAM [facility] Stop: 10/13/21 08:59 Last Admin: 09/19/21 08:20 Dose: 240 mg Documented by: Ergocalciferol (Ergocalciferol 50,000 Units 1250 Mcg Cap) 50,000 units PO Vargas@0900 [facility] Stop: 10/14/21 08:59 Last Admin: 09/14/21 08:41 Dose: 50,000 units Documented by: Ferrous Sulfate (Ferrous Sulfate 325 Mg Tab) 325 mg PO QAM [facility] Stop: 10/13/21 08:59 Last Admin: 09/19/21 08:20 Dose: 325 mg Documented by: Furosemide (Furosemide 40 Mg Tab) 40 mg PO QAM PRN PRN Reason: Edema Stop: 10/12/21 23:40 Gabapentin (Gabapentin 600 Mg Tab) 600 mg PO TID [facility] Stop: 10/17/21 20:59 Last Admin: 09/19/21 08:20 Dose: 600 mg Documented by: Ampicillin Sodium 2,000 mg/ (Sodium Chloride) 100 mls @ 200 mls/hr IV Q4H [facility]; Protocol Stop: 09/29/21 13:59 Last Admin: 09/19/21 10:00 Dose: 200 mls/hr Documented by: Ketorolac Tromethamine (Ketorolac 30 Mg/Ml Vial) 30 mg IV Q6H PRN PRN Reason: Severe Pain Stop: 09/20/21 09:37 Last Admin: 09/19/21 05:56 Dose: 30 mg Documented by: Levothyroxine Sodium (Levothyroxine Sodium 125 Mcg Tablet) 125 mcg PO DAILYBB [facility] Stop: 10/13/21 06:29 Last Admin: 09/19/21 05:57 Dose: 125 mcg Documented by: Lidocaine (Lidocaine 5% 1 Patch) 1 patch TD QAM [facility] Stop: 10/14/21 09:44 Last Admin: 09/18/21 07:50 Dose: 1 patch Documented by: Magnesium Oxide (Magnesium Oxide 400 Mg Tab) 400 mg PO BID [facility] Stop: 10/13/21 08:59 Last Admin: 09/19/21 08:20 Dose: 400 mg Documented by: Melatonin (Melatonin 3 Mg Tab) 6 mg PO HS PRN PRN Reason: Sleep Stop: 10/13/21 17:19 Metoprolol Succinate (Metoprolol Succ 50mg Ext Rel Tab) 100 mg PO BID [facility] Stop: 10/13/21 08:59 Last Admin: 09/19/21 08:20 Dose: 100 mg Documented by: Miconazole Nitrate (Miconazole Nitrate Powder 43 Gm) 1 appln EXT PRN PRN PRN Reason: Affected Skin Folds Stop: 10/17/21 06:04 Last Admin: 09/17/21 17:54 Dose: 1 appln Documented by: Miscellaneous (Remove Lidoderm Patch) 1 ea N/A DAILY@2100 [facility] Stop: 10/14/21 20:59 Last Admin: 09/18/21 20:24 Dose: 1 ea Documented by: Oxycodone HCl (Oxycodone Hcl Ir 5 Mg Tab (Immediate Release)) 10 mg PO Q4H PRN PRN Reason: pain Stop: 09/30/21 08:43 Last Admin: 09/19/21 07:48 Dose: 10 mg Documented by: Pantoprazole Sodium (Pantoprazole 40 Mg Tab) 40 mg PO DAILY PRN PRN Reason: Gi Upset Stop: 10/12/21 23:40 Last Admin: 09/16/21 08:50 Dose: 40 mg Documented by: Polyethylene Glycol (Polyethylene (Miralax) 17 Gm Pack) 17 gm PO DAILY PRN PRN Reason: Constipation Stop: 10/12/21 23:40 Potassium Chloride (Potassium Chloride Crtab 20 Meq Tabcr) 20 meq PO DAILY [facility] Stop: 10/14/21 08:59 Last Admin: 09/19/21 08:20 Dose: 20 meq Documented by: Rivaroxaban (Rivaroxaban 20 Mg Tab) 20 mg PO PM [facility] Stop: 10/13/21 20:59 Last Admin: 09/18/21 20:23 Dose: 20 mg Documented by: Saccharomyces Boulardii (Saccharomyces Boulardii 250 Mg Cap) 250 mg PO BID [facility] Stop: 10/16/21 10:29 Last Admin: 09/19/21 08:20 Dose: 250 mg Documented by: Trazodone HCl (Trazodone Hcl 50 Mg Tab) 150 mg PO QPM PRN PRN Reason: Sleep Stop: 10/12/21 23:40 Last Admin: 09/15/21 21:17 Dose: 150 mg Documented by: (1) A-fib Atrial fibrillation type: paroxysmal Qualified Code(s): I48.0 - Paroxysmal atrial fibrillation
[2021-09-19] MEDS: LIDOCAINE 5% 1 PATCH TD SCH (14:10)
--- NOTE | 2021-09-19 14:11 | XRay Report ---
SINGLE VIEW CHEST CLINICAL HISTORY: PICC placement FINDINGS: 2 AP, portable, supine chest radiographs are compared to study dated 09/12/2021. The examinat ion is degraded by portable technique and apical lordotic positioning. A right PICC line has been isma zoie. The tip projects over the SVC. The heart is enlarged. The pulmonary vasculature is noncongested. There is elevation of right hemidiaphragm and mild bibasilar atelectasis. No airspace consolidation or large pleural effusion is identified. No pneumothorax is seen. The bony thorax is grossly intact. IMPRESSION: 1. A right PICC line has been placed as above. 2. Cardiomegaly with no acute cardiopulmonary abnormality identified. ACT 112: Negative or not required by law. Electronically signed by: Kameron Diaz M.D. 09/19/2021 2:10 PM
[2021-09-19] MEDS: RIVAROXABAN 20 MG TAB PO SCH (20:16)
[2021-09-20] MEDS: oxyCODONE HCL IR 5 MG TAB (IMMEDIATE RELEASE) PO PRN ×5 (00:11→22:49)
[2021-09-20] MEDS: AMPICILLIN 2,000 MG in SODIUM CHLOR 0.9% AD-VAN 100 ML IV SCH ×6 (02:37→22:50)
[2021-09-20] MEDS: KETOROLAC 30 MG/ML VIAL IV PRN (04:14)
[2021-09-20] MEDS: LEVOTHYROXINE SODIUM 125 MCG TABLET PO SCH (05:59)
[2021-09-20 07:10] LABS: Hematocrit (blood only) 42.5 % (42-52); Hemoglobin 14.2 g/dL (14.0-18.0); Mean Corpuscular Hemoglobin 29.6 pg (25-34); Mean Corpuscular Hgb Conc 33.4 g/dL (32-36); Mean Corpuscular Volume 88.5 fL (80-100); Mean Platelet Volume 8.4 fL (7.4-10.4); Platelet Count 198 K/uL (130-400); RDW Standard Deviation 45.6 fL (36.4-46.3); White Blood Count 8.52 K/uL (4.8-10.8)
[2021-09-20 07:58] LABS: Alanine Aminotransferase 28 U/L (7-52); Aspartate Aminotransferase 16 U/L (13-39)
[2021-09-20] MEDS: ACETAMINOPHEN 325 MG TAB PO SCH ×3 (08:22→19:44)
[2021-09-20] MEDS: GABAPENTIN 600 MG TAB PO SCH ×3 (08:24→19:42)
[2021-09-20] MEDS: FERROUS SULFATE 325 MG TAB PO SCH (08:24)
[2021-09-20] MEDS: LIDOCAINE 5% 1 PATCH TD SCH (08:24)
[2021-09-20] MEDS: METOPROLOL SUCC 50MG EXT REL TAB PO SCH ×2 (08:25→19:42)
[2021-09-20] MEDS: MAGNESIUM OXIDE 400 MG TAB PO SCH ×2 (08:25→19:43)
[2021-09-20] MEDS: SACCHAROMYCES BOULARDII 250 MG CAP PO SCH ×2 (08:25→19:44)
[2021-09-20] MEDS: POTASSIUM CHLORIDE CRTAB 20 MEQ TABCR PO SCH (08:25)
--- NOTE | 2021-09-20 12:11 | Hospitalist Progress Note ---
Date of Service September 20, 2021 Assessment & Plan (1) Gram-positive bacteremia: (2) Discitis of lumbar region: (3) A-fib: (4) Morbid obesity: Plan: 61 year old morbidly obese male presenting with acute onset low back pain for the past several days found to have Enterococcus bacteremia, diskitis and epidural abscess. Enterococcus faecalis bacteremia with diskitis and epidural abscess - Blood clx / with enterococcus in 2/2 clx, repeat blood clx 2 also with enteroccus in 1/2 bottle -repeat blood culture 09/14 negative x 48 hours. -MRI - concern for diskitis and epidural abscess. CRP, ESR elevated but improvin g normal WBC, procal negative. -Daptomycin/Zosyn de-escalated to ampicillin 09/15 based on culture results. Seen by ID -continue IV ampicillin 2 g every 4 hours, anticipate 6 to 8 weeks of IV antibiotic therapy. For home infusion, continuous infusion requested, dosing per pharmacy is 12mg IV continuous Q 24 hours. - repeat MRI in 6 to 8 weeks to determine final duration of antibiotic therapy however repeat MRI earlier if patient clinically deteriorates or symptoms worsen while on antibiotic therapy. -PICC line ordered - Weekly CBC with differential and BMP in Bioclate CRP while on antibiotic therapy with - Outpatient dental evaluation. - TTE with no mention of vegetations Seen by Orthopedic Surgeon -patient should continue to improve on IV antibiotics, however if he declines and requires surgical intervention, he would require transfer to tertiary care facility given his body habitus Pain control acetaminophen 650mg TID, gabapentin 600mg TID, oxycodone 10mg Q 4PRN, toradol IV PRN, lidocaine patch. Pain is slowly improving. Will continue regimen Dysuria -UA negative -recent CTA/P negative for stones Paroxsymal Afib - continue toprol and cardizem. Continue xarelto as currently no plans for any procedure. HTN - stable, on toprol and cardizem Morbid obesity - BMI 65. Weight loss recommended hypothyroidism - continue synthroid DVT prophylaxis- xarelto Dispo-needs IV ampicillin for 6 to 8 weeks,Plan for home infusion. PICC Line ordered. Estimated discharge Wednesday Admission and Anticipated Discharge Date Admission Date: September 12, 2021 Subjective Pain is better controlled 2 BM today No issues overnight Physical Exam Physical Exam: obese, pleasant, Results & Data Results & Data ([place]) Vital Signs (Past 12 Hours) Vital Signs Temp Pulse Resp BP Pulse Ox 09/20/21 07:47 37.0 C 82 14 150/83 H 97 (1) A-fib Atrial fibrillation type: paroxysmal Qualified Code(s): I48.0 - Paroxysmal atrial fibrillation
[2021-09-20] MEDS: RIVAROXABAN 20 MG TAB PO SCH (19:43)
[2021-09-21] MEDS: AMPICILLIN 2,000 MG in SODIUM CHLOR 0.9% AD-VAN 100 ML IV SCH ×6 (01:54→21:53)
[2021-09-21] MEDS: oxyCODONE HCL IR 5 MG TAB (IMMEDIATE RELEASE) PO PRN ×6 (02:34→23:35)
[2021-09-21] MEDS: LEVOTHYROXINE SODIUM 125 MCG TABLET PO SCH (05:50)
[2021-09-21] MEDS: MAGNESIUM OXIDE 400 MG TAB PO SCH ×2 (08:15→21:03)
[2021-09-21] MEDS: ERGOCALCIFEROL 50,000 UNITS 1250 MCG CAP PO SCH (08:15)
[2021-09-21] MEDS: CYCLOBENZAPRINE HCL 10 MG TAB PO SCH ×3 (08:15→21:02)
[2021-09-21] MEDS: FERROUS SULFATE 325 MG TAB PO SCH (08:15)
[2021-09-21] MEDS: GABAPENTIN 600 MG TAB PO SCH ×3 (08:15→21:03)
[2021-09-21] MEDS: ACETAMINOPHEN 325 MG TAB PO SCH ×3 (08:15→21:02)
[2021-09-21] MEDS: POTASSIUM CHLORIDE CRTAB 20 MEQ TABCR PO SCH (08:15)
[2021-09-21] MEDS: SACCHAROMYCES BOULARDII 250 MG CAP PO SCH (08:16)
[2021-09-21] MEDS: METOPROLOL SUCC 50MG EXT REL TAB PO SCH ×2 (08:16→21:02)
--- NOTE | 2021-09-21 13:21 | Hospitalist Progress Note ---
Date of Service September 21, 2021 Assessment & Plan (1) Gram-positive bacteremia: (2) Discitis of lumbar region: (3) A-fib: (4) Morbid obesity: Plan: 61 year old morbidly obese male presenting with acute onset low back pain for the past several days found to have Enterococcus bacteremia, diskitis and epidural abscess. Enterococcus faecalis bacteremia with diskitis and epidural abscess - Blood clx 09/12 with enterococcus in 2/2 clx, repeat blood clx 2 also with enteroccus in 1/2 bottle -repeat blood culture 09/14 negative x 48 hours. -MRI - concern for diskitis and epidural abscess. CRP, ESR elevated but improvi ng normal WBC, procal negative. -Daptomycin/Zosyn de-escalated to ampicillin 09/15 based on culture results. Seen by ID -continue IV ampicillin 2 g every 4 hours, anticipate 6 to 8 weeks of IV antibiotic therapy. For home infusion, continuous infusion requested, dosing per pharmacy is 12mg IV continuous Q 24 hours. - repeat MRI in 6 to 8 weeks to determine final duration of antibiotic therapy however repeat MRI earlier if patient clinically deteriorates or symptoms worsen while on antibiotic therapy. -PICC line ordered - Weekly CBC with differential and BMP in Bioclate CRP while on antibiotic therapy with - Outpatient dental evaluation. - TTE with no mention of vegetations Seen by Orthopedic Surgeon -patient should continue to improve on IV antibiotics, however if he declines and requires surgical intervention, he would require transfer to tertiary care facility given his body habitus Pain control acetaminophen 650mg TID, gabapentin 600mg TID, oxycodone 10mg Q 4PRN, toradol IV PRN, lidocaine patch. Pain is slowly improving. Will continue regimen Flexeril 10mg TID resumed today (was on previously) Dysuria -UA negative -recent CTA/P negative for stones Paroxsymal Afib - continue toprol and cardizem. Continue xarelto as currently no plans for any procedure. HTN - stable, on toprol and cardizem Morbid obesity - BMI 65. Weight loss recommended hypothyroidism - continue synthroid DVT prophylaxis- xarelto Dispo-needs IV ampicillin for 6 to 8 weeks,Plan for home infusion. PICC Line ordered. Estimated discharge Wednesday Admission and Anticipated Discharge Date Admission Date: September 12, 2021 Subjective had back spasm this morning, takes Flexeril at home which isn't ordered here--reordered Feels better Anxious to go home tomorrow Physical Exam Physical Exam: Pleasant, no acute distress, obese Constitutional: Poor dentition Respiratory: breathing comfortably, no wheezing/rhonchi/rales Cardiovascular: regular rate and rhythm, no murmurs/rubs/gallops Gastrointestinal (Abdomen): soft, non tender Musculoskeletal: no edema Neurologic: awake, alert, spontaneously moving extremity Results & Data Results & Data ([facility]) Vital Signs (Past 12 Hours) Vital Signs Temp Pulse Resp BP Pulse Ox 09/21/21 08:08 36.9 C 95 H 18 130/83 96 Medications Administered Current Inpatient Medications Acetaminophen (Acetaminophen 325 Mg Tab) 650 mg PO TID [facility] Stop: 10/17/21 20:59 Last Admin: 09/21/21 08:15 Dose: 650 mg Documented by: Cyclobenzaprine HCl (Cyclobenzaprine Hcl 10 Mg Tab) 10 mg PO TID [facility] Stop: 10/21/21 08:59 Last Admin: 09/21/21 08:15 Dose: 10 mg Documented by: Diclofenac Sodium (Diclofenac Sod 1% Gel 100 Gm Tube) 2 gm EXT QID PRN PRN Reason: Pain Stop: 10/12/21 23:40 Last Admin: 09/17/21 13:40 Dose: 2 gm Documented by: Diltiazem HCl (Diltiazem Hcl 120 Mg Er Cap) 240 mg PO QAM [facility] Stop: 10/13/21 08:59 Last Admin: 09/21/21 08:15 Dose: 240 mg Documented by: Ergocalciferol (Ergocalciferol 50,000 Units 1250 Mcg Cap) 50,000 units PO Vargas@0900 [facility] Stop: 10/14/21 08:59 Last Admin: 09/21/21 08:15 Dose: 50,000 units Documented by: Ferrous Sulfate (Ferrous Sulfate 325 Mg Tab) 325 mg PO QAM [facility] Stop: 10/13/21 08:59 Last Admin: 09/21/21 08:15 Dose: 325 mg Documented by: Furosemide (Furosemide 40 Mg Tab) 40 mg PO QAM PRN PRN Reason: Edema Stop: 10/12/21 23:40 Gabapentin (Gabapentin 600 Mg Tab) 600 mg PO TID [facility] Stop: 10/17/21 20:59 Last Admin: 09/21/21 08:15 Dose: 600 mg Documented by: Heparin Sodium (Beef Lung) (Heparin 10 Unit/Ml 5 Ml Flush) 5 ml FLUSH PRN PRN PRN Reason: Flush Stop: 10/19/21 15:07 Last Admin: 09/21/21 10:54 Dose: 5 ml Documented by: Ampicillin Sodium 2,000 mg/ (Sodium Chloride) 100 mls @ 200 mls/hr IV Q4H [facility]; Protocol Stop: 09/29/21 13:59 Last Infusion: 09/21/21 11:39 Dose: Infused Documented by: Levothyroxine Sodium (Levothyroxine Sodium 125 Mcg Tablet) 125 mcg PO DAILYBB [facility] Stop: 10/13/21 06:29 Last Admin: 09/21/21 05:50 Dose: 125 mcg Documented by: Lidocaine (Lidocaine 5% 1 Patch) 1 patch TD QAM [facility] Stop: 10/14/21 09:44 Last Admin: 09/20/21 08:24 Dose: 1 patch Documented by: Magnesium Oxide (Magnesium Oxide 400 Mg Tab) 400 mg PO BID [facility] Stop: 10/13/21 08:59 Last Admin: 09/21/21 08:15 Dose: 400 mg Documented by: Melatonin (Melatonin 3 Mg Tab) 6 mg PO HS PRN PRN Reason: Sleep Stop: 10/13/21 17:19 Metoprolol Succinate (Metoprolol Succ 50mg Ext Rel Tab) 100 mg PO BID [facility] Stop: 10/13/21 08:59 Last Admin: 09/21/21 08:16 Dose: 100 mg Documented by: Miconazole Nitrate (Miconazole Nitrate Powder 43 Gm) 1 appln EXT PRN PRN PRN Reason: Affected Skin Folds Stop: 10/17/21 06:04 Last Admin: 09/17/21 17:54 Dose: 1 appln Documented by: Miscellaneous (Remove Lidoderm Patch) 1 ea N/A DAILY@2100 [facility] Stop: 10/14/21 20:59 Last Admin: 09/20/21 19:45 Dose: Not Given Documented by: Oxycodone HCl (Oxycodone Hcl Ir 5 Mg Tab (Immediate Release)) 10 mg PO Q4H PRN PRN Reason: pain Stop: 09/30/21 08:43 Last Admin: 09/21/21 10:27 Dose: 10 mg Documented by: Pantoprazole Sodium (Pantoprazole 40 Mg Tab) 40 mg PO DAILY PRN PRN Reason: Gi Upset Stop: 10/12/21 23:40 Last Admin: 09/16/21 08:50 Dose: 40 mg Documented by: Polyethylene Glycol (Polyethylene (Miralax) 17 Gm Pack) 17 gm PO DAILY PRN PRN Reason: Constipation Stop: 10/12/21 23:40 Potassium Chloride (Potassium Chloride Crtab 20 Meq Tabcr) 20 meq PO DAILY [facility] Stop: 10/14/21 08:59 Last Admin: 09/21/21 08:15 Dose: 20 meq Documented by: Rivaroxaban (Rivaroxaban 20 Mg Tab) 20 mg PO PM [facility] Stop: 10/13/21 20:59 Last Admin: 09/20/21 19:43 Dose: 20 mg Documented by: Saccharomyces Boulardii (Saccharomyces Boulardii 250 Mg Cap) 250 mg PO BID [facility] Stop: 10/16/21 10:29 Last Admin: 09/21/21 08:16 Dose: 250 mg Documented by: Trazodone HCl (Trazodone Hcl 50 Mg Tab) 150 mg PO QPM PRN PRN Reason: Sleep Stop: 10/12/21 23:40 Last Admin: 09/15/21 21:17 Dose: 150 mg Documented by: (1) A-fib Atrial fibrillation type: paroxysmal Qualified Code(s): I48.0 - Paroxysmal atrial fibrillation
[2021-09-21] MEDS: LIDOCAINE 5% 1 PATCH TD SCH (13:23)
[2021-09-21] MEDS: RIVAROXABAN 20 MG TAB PO SCH (21:02)
[2021-09-22] MEDS: AMPICILLIN 2,000 MG in SODIUM CHLOR 0.9% AD-VAN 100 ML IV SCH ×6 (02:15→21:30)
[2021-09-22] MEDS: oxyCODONE HCL IR 5 MG TAB (IMMEDIATE RELEASE) PO PRN ×3 (06:05→21:29)
[2021-09-22] MEDS: LEVOTHYROXINE SODIUM 125 MCG TABLET PO SCH (06:10)
[2021-09-22 06:38] LABS: Creatinine Clr Calc Pharmacy 164.3 ml/min; Est GFR (African American) 110.6 ml/min; Est GFR (Non-African American) 95.4 ml/min
[2021-09-22] MEDS: PANTOprazole 40 MG TAB PO PRN (08:16)
[2021-09-22] MEDS: DICLOFENAC SOD 1% GEL 100 GM TUBE EXT PRN (08:16)
[2021-09-22] MEDS: FERROUS SULFATE 325 MG TAB PO SCH (08:16)
[2021-09-22] MEDS: GABAPENTIN 600 MG TAB PO SCH ×3 (08:16→21:26)
[2021-09-22] MEDS: CYCLOBENZAPRINE HCL 10 MG TAB PO SCH ×3 (08:17→21:26)
[2021-09-22] MEDS: POTASSIUM CHLORIDE CRTAB 20 MEQ TABCR PO SCH (08:17)
[2021-09-22] MEDS: ACETAMINOPHEN 325 MG TAB PO SCH ×3 (08:17→21:26)
[2021-09-22] MEDS: MAGNESIUM OXIDE 400 MG TAB PO SCH ×2 (08:17→21:26)
[2021-09-22] MEDS: LIDOCAINE 5% 1 PATCH TD SCH (08:18)
[2021-09-22] MEDS: METOPROLOL SUCC 50MG EXT REL TAB PO SCH ×2 (08:18→21:26)
[2021-09-22] MEDS ORDERED: KETOROLAC TROMETHAMINE 15 MG/ML VIAL IV ONE (08:29)
--- NOTE | 2021-09-22 16:58 | Hospitalist Progress Note ---
Date of Service September 22, 2021 Assessment & Plan (1) Gram-positive bacteremia: (2) Discitis of lumbar region: (3) A-fib: (4) Morbid obesity: Plan: 61 year old morbidly obese male presenting with acute onset low back pain for the past several days found to have Enterococcus bacteremia, diskitis and epidural abscess. Enterococcus faecalis bacteremia with diskitis and epidural abscess - Blood clx 09/12 with enterococcus in 2/2 clx, repeat blood clx 09/13 also with enteroccus in 1/2 bottle -repeat blood culture 09/14 negative x 5 days -MRI - concern for diskitis and epidural abscess. CRP, ESR elevated but improving normal WBC, procal negative. -Daptomycin/Zosyn de-escalated to ampicillin 09/15 based on culture results. Seen by ID -continue IV ampicillin 2 g every 4 hours, anticipate 6 to 8 weeks of IV antibiotic therapy. For home infusion, continuous infusion requested, dosing per pharmacy is 12mg IV continuous Q 24 hours. - repeat MRI in 6 to 8 weeks to determine final duration of antibiotic therapy however repeat MRI earlier if patient clinically deteriorates or symptoms worsen while on antibiotic therapy. -PICC line placed 09/19 - Weekly CBC with differential and BMP in Bioclate CRP while on antibiotic therapy with - Outpatient dental evaluation. - TTE with no mention of vegetations Seen by Orthopedic Surgeon -patient should continue to improve on IV antibiotics, however if he declines and requires surgical intervention, he would require transfer to tertiary care facility given his body habitus Pain control acetaminophen 650mg TID, gabapentin 600mg TID, oxycodone 10mg Q 4PRN, toradol IV PRN, lidocaine patch. Pain is slowly improving. Will continue regimen Flexeril 10mg TID resumed today (was on previously) Dysuria -UA negative -recent CTA/P negative for stones Paroxsymal Afib - continue toprol and cardizem. Continue xarelto as currently no plans for any procedure. HTN - stable, on toprol and cardizem Morbid obesity - BMI 65. Weight loss recommended -likely osteoarthritis. Short course of naproxen PRN for arthritic pain at discharge hypothyroidism - continue synthroid DVT prophylaxis- xarelto Dispo-needs IV ampicillin for 6 to 8 weeks. Discharge delayed due to Abx not being available. Plan for home infusion nurse tomorrow at 2pm, patient will be discharged after his morning Ampicillin dose Admission and Anticipated Discharge Date Admission Date: September 12, 2021 Subjective As he was sitting on toilet, had "popping" of his knees then with pain. Pain relieved with toradol Otherwise, he feels well Physical Exam Physical Exam: Obese, pleasant, no acute distress ENMT: Poor dentition Respiratory: breathing comfortably on room air, no wheezing/rhonchi/rales Cardiovascular: regular rate and rhythm, no murmurs/rubs/gallops Gastrointestinal (Abdomen): soft, non tender, non distended Musculoskeletal: no edema Neurologic: awake, alert, spontaneously moving extremities Results & Data Results & Data ([facility]) Vital Signs (Past 12 Hours) Vital Signs Temp Pulse Resp BP Pulse Ox 09/22/21 14:57 36.6 C 67 17 116/67 93 09/22/21 08:15 36.8 C 100 H 18 155/95 H 97 Laboratory Results BMP 09/22/21 05:35 Creatinine 0.82 Medications Administered Current Inpatient Medications Acetaminophen (Acetaminophen 325 Mg Tab) 650 mg PO TID [facility] Stop: 10/17/21 20:59 Last Admin: 09/22/21 14:04 Dose: 650 mg Documented by: Cyclobenzaprine HCl (Cyclobenzaprine Hcl 10 Mg Tab) 10 mg PO TID [facility] Stop: 10/21/21 08:59 Last Admin: 09/22/21 14:04 Dose: 10 mg Documented by: Diclofenac Sodium (Diclofenac Sod 1% Gel 100 Gm Tube) 2 gm EXT QID PRN PRN Reason: Pain Stop: 10/12/21 23:40 Last Admin: 09/22/21 08:16 Dose: 2 gm Documented by: Diltiazem HCl (Diltiazem Hcl 120 Mg Er Cap) 240 mg PO QAM [facility] Stop: 10/13/21 08:59 Last Admin: 09/22/21 08:16 Dose: 240 mg Documented by: Ergocalciferol (Ergocalciferol 50,000 Units 1250 Mcg Cap) 50,000 units PO Vargas@0900 [facility] Stop: 10/14/21 08:59 Last Admin: 09/21/21 08:15 Dose: 50,000 units Documented by: Ferrous Sulfate (Ferrous Sulfate 325 Mg Tab) 325 mg PO QAM [facility] Stop: 10/13/21 08:59 Last Admin: 09/22/21 08:16 Dose: 325 mg Documented by: Furosemide (Furosemide 40 Mg Tab) 40 mg PO QAM PRN PRN Reason: Edema Stop: 10/12/21 23:40 Gabapentin (Gabapentin 600 Mg Tab) 600 mg PO TID [facility] Stop: 10/17/21 20:59 Last Admin: 09/22/21 14:04 Dose: 600 mg Documented by: Heparin Sodium (Beef Lung) (Heparin 10 Unit/Ml 5 Ml Flush) 5 ml FLUSH PRN PRN PRN Reason: Flush Stop: 10/19/21 15:07 Last Admin: 09/22/21 08:45 Dose: 5 ml Documented by: Ampicillin Sodium 2,000 mg/ (Sodium Chloride) 100 mls @ 200 mls/hr IV Q4H [facility]; Protocol Stop: 09/29/21 13:59 Last Infusion: 09/22/21 14:40 Dose: Infused Documented by: Levothyroxine Sodium (Levothyroxine Sodium 125 Mcg Tablet) 125 mcg PO DAILYBB [facility] Stop: 10/13/21 06:29 Last Admin: 09/22/21 06:10 Dose: 125 mcg Documented by: Lidocaine (Lidocaine 5% 1 Patch) 1 patch TD QAM [facility] Stop: 10/14/21 09:44 Last Admin: 09/22/21 08:18 Dose: 1 patch Documented by: Magnesium Oxide (Magnesium Oxide 400 Mg Tab) 400 mg PO BID [facility] Stop: 10/13/21 08:59 Last Admin: 09/22/21 08:17 Dose: 400 mg Documented by: Melatonin (Melatonin 3 Mg Tab) 6 mg PO HS PRN PRN Reason: Sleep Stop: 10/13/21 17:19 Metoprolol Succinate (Metoprolol Succ 50mg Ext Rel Tab) 100 mg PO BID [facility] Stop: 10/13/21 08:59 Last Admin: 09/22/21 08:18 Dose: 100 mg Documented by: Miconazole Nitrate (Miconazole Nitrate Powder 43 Gm) 1 appln EXT PRN PRN PRN Reason: Affected Skin Folds Stop: 10/17/21 06:04 Last Admin: 09/17/21 17:54 Dose: 1 appln Documented by: Miscellaneous (Remove Lidoderm Patch) 1 ea N/A DAILY@2100 [facility] Stop: 10/14/21 20:59 Last Admin: 09/21/21 19:30 Dose: 1 ea Documented by: Oxycodone HCl (Oxycodone Hcl Ir 5 Mg Tab (Immediate Release)) 10 mg PO Q4H PRN PRN Reason: pain Stop: 09/30/21 08:43 Last Admin: 09/22/21 14:23 Dose: 10 mg Documented by: Pantoprazole Sodium (Pantoprazole 40 Mg Tab) 40 mg PO DAILY PRN PRN Reason: Gi Upset Stop: 10/12/21 23:40 Last Admin: 09/22/21 08:16 Dose: 40 mg Documented by: Polyethylene Glycol (Polyethylene (Miralax) 17 Gm Pack) 17 gm PO DAILY PRN PRN Reason: Constipation Stop: 10/12/21 23:40 Potassium Chloride (Potassium Chloride Crtab 20 Meq Tabcr) 20 meq PO DAILY [facility] Stop: 10/14/21 08:59 Last Admin: 09/22/21 08:17 Dose: 20 meq Documented by: Rivaroxaban (Rivaroxaban 20 Mg Tab) 20 mg PO PM [facility] Stop: 10/13/21 20:59 Last Admin: 09/21/21 21:02 Dose: 20 mg Documented by: Trazodone HCl (Trazodone Hcl 50 Mg Tab) 150 mg PO QPM PRN PRN Reason: Sleep Stop: 10/12/21 23:40 Last Admin: 09/15/21 21:17 Dose: 150 mg Documented by: (1) A-fib Atrial fibrillation type: paroxysmal Qualified Code(s): I48.0 - Paroxysmal atrial fibrillation
[2021-09-22] MEDS: RIVAROXABAN 20 MG TAB PO SCH (21:26)
[2021-09-23] MEDS: AMPICILLIN 2,000 MG in SODIUM CHLOR 0.9% AD-VAN 100 ML IV SCH ×3 (02:11→10:03)
[2021-09-23] MEDS: oxyCODONE HCL IR 5 MG TAB (IMMEDIATE RELEASE) PO PRN ×3 (02:13→10:03)
[2021-09-23] MEDS: LEVOTHYROXINE SODIUM 125 MCG TABLET PO SCH (06:19)
[2021-09-23] MEDS: METOPROLOL SUCC 50MG EXT REL TAB PO SCH (08:31)
[2021-09-23] MEDS: CYCLOBENZAPRINE HCL 10 MG TAB PO SCH (08:31)
[2021-09-23] MEDS: ACETAMINOPHEN 325 MG TAB PO SCH (08:31)
[2021-09-23] MEDS: POTASSIUM CHLORIDE CRTAB 20 MEQ TABCR PO SCH (08:31)
[2021-09-23] MEDS: MAGNESIUM OXIDE 400 MG TAB PO SCH (08:31)
[2021-09-23] MEDS: GABAPENTIN 600 MG TAB PO SCH (08:31)
[2021-09-23] MEDS: PANTOprazole 40 MG TAB PO PRN (08:31)
[2021-09-23] MEDS: LIDOCAINE 5% 1 PATCH TD SCH (08:34)
[2021-09-23] MEDS: FERROUS SULFATE 325 MG TAB PO SCH (10:03)
--- NOTE | 2021-09-23 17:15 | Discharge Summary ---
Date of Service September 23, 2021 Admission HPI Per Admitting Provider This is a 61-year-old male with past medical history significant for hypothyroidism, atrial fibrillation, hypertension, morbid obesity, presents with severe back pain. The patient since last Wednesday is having severe back pain. Not to ambulate much because of back pain. No weakness in the legs. No bowel or bladder incontinence. No fever, no chills. Denies any other complaints, resting comfortably, hemodynamically stable. Denies any headache. No blurred visions, no earache, no runny nose, no sore throat, no cough, no chest pain, no shortness of breath, no nausea, no vomiting, no abdominal pain. Principal Diagnosis Enterococcus Bacteremia Enterococcus L2-L3 Discitis Tiny epidural abscess Discharge Exam Patient feels well. Appears well. Back pain is controlled. Patient reports ambulating to/from restroom Discharge Data Allergies Allergy/AdvReac Type Severity Reaction Status Date / Time No Known Allergies Allergy ` Verified 09/12/21 17:41 Consultations 09/12/21 20:41 ED Decision to Admit Stat 09/13/21 08:00 Consult Orthopedic Surgery Routine 09/13/21 11:23 Consult Infectious Diseases Routine Ordered Studies 09/12/21 15:23 MR lumbar spine wo con Stat Hospital Course (1) Gram-positive bacteremia: (2) Discitis of lumbar region: (3) A-fib: (4) Morbid obesity: 61 year old morbidly obese male presenting with acute onset low back pain for the past several days found to have Enterococcus bacteremia, discitis and epidural abscess. Enterococcus faecalis bacteremia with L2-L3 discitis and epidural abscess - Blood culture 4/ with enterococcus in 2/2 sets. Repeat blood culture 4/2 also with enteroccus in 1/2 bottle -repeat blood culture /3 negative x 5 days -MRI - concern for discitis and tiny epidural abscess. CRP, ESR elevated but improving normal WBC, procalcitonin negative. -Initially placed on daptomycin/Zosyn which was then de-escalated to ampicillin / Seen by ID -continue IV ampicillin 2 g every 4 hours, anticipate 6 to 8 weeks of IV antibiotic therapy. For home infusion, continuous infusion requested, dosing per pharmacy is 12g IV continuous Q 24 hours. - repeat MRI with/without contrast in 6 weeks to determine final duration of antibiotic therapy however repeat MRI earlier if patient clinically deteriorates or symptoms worsen while on antibiotic therapy. -Follow up with ID after repeat MRI to finalize antibiotic duration. -PICC line placed 09/19. PICC line can be removed once antibiotics are completed - Weekly CBC with differential, BMP and CRP while on antibiotic therapy with results to PCP until he establishes care with ID - Outpatient dental evaluation. - TTE with no mention of vegetations Seen by Orthopedic Surgeon -patient should continue to improve on IV antibiotics, however if he declines and requires surgical intervention, he would require transfer to tertiary care facility given his body habitus -Patient was discharged on ampicillin 12gm IV Q 24 hours continuous infusion. Today is day # 9 of -56. Final duration TBD by Infectious disease Pain control acetaminophen 650mg TID, gabapentin 600mg TID, oxycodone 10mg Q 4PRN, toradol IV PRN (while in the hospital), lidocaine patch. Back pain slowly improved and at time of discharge, patient's pain was well controlled Flexeril 10mg TID (was on previously) Naproxen BID PRN was added for severe bilateral arthritic knee pain. Patient was counseled not to overuse or take Naproxen consistently due to increased side effects (PUD, gastritis, fluid retention, hypertension, etc) Dysuria -UA negative -recent CT Abdomen/Pelvis negative for stones Paroxsymal Afib - continue toprol, cardizem, and xarelto HTN - stable, continued on toprol and cardizem Morbid obesity - BMI 65. Weight loss recommended hypothyroidism - continue synthroid DVT prophylaxis- xarelto Dispo-Patient was evaluated by PT and felt stable to return home. Patient feels comfortable managing his antibiotic infusion. He was ambulating and pain was controlled at time of discharge. Home infusion was set up prior to discharge Total Time Total Time Spent Total Time Spent (In Minutes): 45 Discharge Plan Discharge Items Patient Disposition: Home - Home Health Services Reason For Visit: BACK PAIN Discharge Diagnosis: Enterococcus Bacteremia Enterococcus L2-L3 Discitis Tiny epidural abscess Condition on Discharge: Good Activity: Resume your previous activity Lifting: No more than 5 pounds Non-emergency contact: Primary Care Provider and Specialist Call non-emergency contact if: you have any medication questions, your symptoms worsen and you have a fever Follow-up/Referrals: Sandi Roman [Primary Care Provider] - 04/19/22 3:00 pm Diet: Heart Healthy Addtl Attending Provider Instructions: You will go home on 6- 8 weeks of Ampicillin (12gm every 24 hours continuous infusion). Final duration will be determined by Infectious Disease You are day # 9 today of Ampicillin (total 42-56 day course) You need a repeat MRI Lumbar spine with/without contrast in 6 weeks (week of October 27). Please ask your PCP for this After your MRI spine, you will need to see Infectious Disease to decide whether your antibiotic course needs to be extended. Once you finish your last day of Ampicillin (last day TBD), your PICC line can be removed. Pending Studies at Discharge: No Stand-Alone Forms: My [facility] [employer], Smoking Cessation Medications and DC Order Prescriptions: New cyclobenzaprine 10 mg Tablet 10 mg PO TID 30 Days Qty: 90 RF: 0 acetaminophen 325 mg Tablet 650 mg PO TID 30 Days Qty: 180 RF: 0 gabapentin 600 mg Tablet 600 mg PO TID 30 Days Qty: 90 RF: 0 lidocaine 5 % Adhesive Patch,Medicated 1 patch transdermal QAM Qty: 30 RF: 0 oxycodone 5 mg Tablet 10 mg PO Q4H PRN (Reason: pain) 15 Days Qty: 30 RF: 0 Continued potassium chloride [Klor-Con] 20 mEq packet 20 meq PO QPM RF: 0 furosemide [Lasix] 40 mg tablet 40 mg PO QAM PRN (Reason: Edema) RF: 0 ferrous sulfate [iron] 325 mg (65 mg iron) Tablet 325 mg PO QAM RF: 0 trazodone 50 mg Tablet 150 mg PO QPM PRN (Reason: Sleep) RF: 0 metoprolol succinate 100 mg Tablet Extended Release 24 Hr 100 mg PO BID RF: 0 pantoprazole 40 mg Tablet,Delayed Release (Dr/Ec) 40 mg PO DAILY PRN (Reason: Gi Upset) RF: 0 ergocalciferol (vitamin D2) [Vitamin D2] 50,000 unit Capsule 50,000 unit PO WK RF: 0 diltiazem HCl 240 mg Tablet Extended Release 24 Hr 240 mg PO QAM RF: 0 diclofenac sodium 1 % Gel 2 g TOPICAL QID PRN (Reason: Pain) RF: 0 Xarelto 20 mg Tablet 20 mg PO PM RF: 0 magnesium oxide 400 mg magnesium Tablet 400 mg PO BID RF: 0 levothyroxine 125 mcg tablet 125 mcg PO DAILY RF: 0 naproxen sodium [Aleve] 220 mg Capsule 220 mg PO Q12H PRN (Reason: Pain) 14 Days Qty: 30 RF: 0 Discontinued gabapentin 300 mg capsule 600 mg PO AMHS RF: 0 ibuprofen [Advil] 200 mg Tablet 200 mg PO Q6H PRN (Reason: Pain) RF: 0 meloxicam 15 mg Tablet 15 mg PO QAM RF: 0 oxycodone 5 mg tablet 5 mg PO Q6H PRN (Reason: pain) Qty: 8 RF: 0 tramadol 50 mg tablet 50 mg PO TID PRN (Reason: Pain) RF: 0 Discharge Orders: Discharge Order (Routine); Ordered 09/23/21 Ordered By: Radha Gallo Admission Data Admit Date/Time: 09/12/21 22:30 Attending Provider: Rahda Gallo Admit Provider: Shakir Smith Primary Care Provider: Sandi Roman Other Providers: Demetris Goff ; Bridger Graham ; Mansi Aguayo ; Wilman Paz I. ; Torsten Malloy II ; Estefanía Burkett ; Derrell Domingo ; Hilario Lozano ; Shakir Smith ; Osmin Almonte ; Hugo Cruz [facility] Other Interventions: Discharge Summary Assessment (RN) Last Done: 09/23/21 10:57
== END 2021-09-23 11:58 | disposition home health service (06) | DRG 95 ==
LOC: ED 12:57 → 3E 22:30 → SUATTDRO 22:30 → 3E 23:15

== ENCOUNTER 2021-09-28 09:07 | Inpatient (IN) ==
[2021-09-28 09:29] LABS: Basophils # (auto) 0.04 K/uL (0-0.2); Basophils % (auto) 0.4 %; Eosinophils # (auto) 0.26 K/uL (0-0.5); Eosinophils % (auto) 2.9 %; Hematocrit (blood only) 43.6 % (42-52); Hemoglobin 14.8 g/dL (14.0-18.0); Immature Granulocytes # (auto) 0.01 K/uL (0.00-0.02); Immature Granulocytes % (auto) 0.1 %; Lymphocytes # (auto) 1.66 K/uL (1.2-3.4); Lymphocytes % (auto) 18.5 %; Mean Corpuscular Hemoglobin 30.4 pg (25-34); Mean Corpuscular Hgb Conc 33.9 g/dL (32-36); Mean Corpuscular Volume 89.5 fL (80-100); Mean Platelet Volume 8.3 fL (7.4-10.4); Monocytes # (auto) 0.59 K/uL (0.11-0.59); Monocytes % (auto) 6.6 %; Neutrophils # (auto) 6.39 K/uL (1.4-6.5); Neutrophils % (auto) 71.5 %; Platelet Count 269 K/uL (130-400); RDW Coefficient of Variation 13.9 % (11.5-14.5); RDW Standard Deviation 45.5 fL (36.4-46.3); Red Blood Count 4.87 M/uL (4.7-6.1); White Blood Count 8.95 K/uL (4.8-10.8)
--- NOTE | 2021-09-28 09:34 | Emergency Department Note ---
History of Present Illness General Chief Complaint: Back Injury/Pain Stated Complaint: BACK PAIN, UNABLE TO AMBULATE Time Seen by Provider: 09/28/21 09:15 History of Present Illness Provider Complaint: back pain Onset (ago): week(s) 3 Duration: constant and progressively worsening Similar Symptoms Previously: Yes Location: lumbar spine Quality: + stabbing Radiation: left leg and right leg Severity: severe Current Pain Intensity: 9 Relieved By: + none Exacerbated By: + sitting upright Context: + turning/twisting; no trauma or no IV drug use Associated symptoms: no loss of sensation in lower extremities, no increased urinary urgency, no increased urinary frequency, no urinary incontinence, no fecal incontinence, no a change in bowel habits, no chills or no hematuria Patient recently admitted from September 12 September 23 and diagnosed with discitis. Home Medications Medication Instructions Recorded Confirmed Type diclofenac sodium 1 % topical gel 2 g TOPICAL QID PRN 11/24/18 09/12/21 History diltiazem HCl 240 mg 240 mg PO QAM 11/24/18 09/12/21 History tablet,extended release 24 hr ergocalciferol (vitamin D2) 1,250 50,000 unit PO WK 11/24/18 09/12/21 History mcg (50,000 unit) capsule (Vitamin D2) magnesium oxide 400 mg PO BID 11/24/18 09/12/21 History metoprolol succinate 100 mg 100 mg PO BID 11/24/18 09/12/21 History tablet,extended release 24 hr pantoprazole 40 mg tablet,delayed 40 mg PO DAILY PRN 11/24/18 09/12/21 History release rivaroxaban 20 mg tablet (Xarelto) 20 mg PO PM 11/24/18 09/12/21 History trazodone 50 mg tablet 150 mg PO QPM PRN 11/24/18 09/12/21 History ferrous sulfate 325 mg (65 mg 325 mg PO QAM 11/28/18 09/12/21 History iron) tablet (iron) furosemide 40 mg tablet (Lasix) 40 mg PO QAM PRN 08/01/19 09/12/21 History potassium chloride 20 mEq oral 20 meq PO QPM 08/01/19 09/12/21 History packet (Klor-Con) levothyroxine 125 mcg tablet 125 mcg PO DAILY 09/10/21 09/12/21 History oxycodone 5 mg tablet 5 mg PO Q6H PRN #8 tab 09/10/21 09/12/21 Rx acetaminophen 325 mg tablet 650 mg PO TID 30 Days #180 tab 09/23/21 Rx cyclobenzaprine 10 mg tablet 10 mg PO TID 30 Days #90 tab 09/23/21 Rx gabapentin 600 mg tablet 600 mg PO TID 30 Days #90 tab 09/23/21 Rx lidocaine 5 % topical patch 1 patch TRANSDERMAL QAM #30 ea 09/23/21 Rx naproxen sodium 220 mg capsule 220 mg PO Q12H PRN 14 Days #30 cap 09/23/21 Rx (Aleve) oxycodone 5 mg tablet 10 mg PO Q4H PRN 15 Days #30 tab 09/23/21 Rx Allergies Allergy/AdvReac Type Severity Reaction Status Date / Time No Known Allergies Allergy ` Verified 09/12/21 17:41 Past Med/Surg History Medical History Chronic anticoagulation Coronary artery disease "moderate disease per cardiac cath [facility] 2013; 50% LAD, 40% RCA" Depression Diabetes mellitus type 2, controlled History of colonic polyps History of urinary calculi "right ureteral stone 2015" Hx of sciatica Hypertension Hypothyroidism Insomnia Iron deficiency anemia "heme + stool 2015, subsequent EGD and colonoscopy neg except for polyp" Lumbar disc herniation Lumbar radiculopathy Morbid obesity Paroxysmal atrial fibrillation Ventricular septal defect Vitamin B12 deficiency Surgical History Status post cardiac catheterization "2013, 50% LAD, 40% RCA" Status post cystoscopy "with right ureteroscopy, laser lithotripsy, basket stone extraction" Status post gastric bypass for obesity Social History Smoking Status: Former smoker Hx Alcohol Use: Yes Alcohol type: beer Hx Substance Use: No Preferred Language: Thai Communication Ability: Effective Hearing Ability: Normal [employer]ive[employer] Merchandise Required: No Beliefs That Will Affect Care: None marital status: single Current Living Situation: Alone Feels Safe at Home: Yes Assistive Devices: Walker Review of Systems A total of 10 systems reviewed and were otherwise negative Physical Exam Vital Signs Vital Signs - 24 hr 09/28/21 09:14 09/28/21 09:16 09/28/21 09:30 Temperature 36.8 C Temperature Source Oral Pulse Rate 135 H 131 H 111 H Pulse Rate from SpO2 Sensor 97 H Pulse Rhythm Respiratory Rate 18 13 16 Respiratory Effort / Characteristics Non-Labored Respiratory Depth Normal Blood Pressure 146/93 H Blood Pressure Mean 110 Pulse Oximetry 93 95 Oxygen Delivery Method Room Air Sepsis Recent Fever Within 48 Hours No Sepsis New/Unexplained Change in Mental Status No Sepsis Action Taken by Nursing No Action Required 09/28/21 09:38 09/28/21 10:00 09/28/21 10:30 Temperature Temperature Source Pulse Rate 126 H 111 H Pulse Rate from SpO2 Sensor Pulse Rhythm Respiratory Rate 18 15 Respiratory Effort / Characteristics Respiratory Depth Blood Pressure Blood Pressure Mean Pulse Oximetry Oxygen Delivery Method Room Air Sepsis Recent Fever Within 48 Hours Sepsis New/Unexplained Change in Mental Status Sepsis Action Taken by Nursing 09/28/21 12:23 09/28/21 12:25 09/28/21 12:38 Temperature Temperature Source Pulse Rate 133 H 138 H 142 H Pulse Rate from SpO2 Sensor 117 H Pulse Rhythm Respiratory Rate 20 24 22 Respiratory Effort / Characteristics Respiratory Depth Blood Pressure 129/98 Blood Pressure Mean 108 Pulse Oximetry 91 93 Oxygen Delivery Method Sepsis Recent Fever Within 48 Hours Sepsis New/Unexplained Change in Mental Status Sepsis Action Taken by Nursing 09/28/21 13:00 09/28/21 13:26 09/28/21 13:30 Temperature Temperature Source Pulse Rate 131 H 132 H 134 H Pulse Rate from SpO2 Sensor 114 H Pulse Rhythm Respiratory Rate 21 14 20 Respiratory Effort / Characteristics Respiratory Depth Blood Pressure 122/97 122/97 121/96 Blood Pressure Mean 105 105 104 Pulse Oximetry 93 92 Oxygen Delivery Method Sepsis Recent Fever Within 48 Hours Sepsis New/Unexplained Change in Mental Status Sepsis Action Taken by Nursing 09/28/21 13:32 09/28/21 13:46 09/28/21 14:00 Temperature Temperature Source Pulse Rate 142 H 116 H 111 H Pulse Rate from SpO2 Sensor 101 H Pulse Rhythm Respiratory Rate 31 H 25 H 22 Respiratory Effort / Characteristics Respiratory Depth Blood Pressure 142/102 H 131/90 Blood Pressure Mean 115 103 Pulse Oximetry 94 Oxygen Delivery Method Sepsis Recent Fever Within 48 Hours Sepsis New/Unexplained Change in Mental Status Sepsis Action Taken by Nursing 09/28/21 14:01 09/28/21 14:30 09/28/21 16:45 Temperature Temperature Source Pulse Rate 126 H 132 H 133 H Pulse Rate from SpO2 Sensor Pulse Rhythm Respiratory Rate 20 23 Respiratory Effort / Characteristics Respiratory Depth Blood Pressure 111/94 Blood Pressure Mean 99 Pulse Oximetry 92 Oxygen Delivery Method Sepsis Recent Fever Within 48 Hours Sepsis New/Unexplained Change in Mental Status Sepsis Action Taken by Nursing 09/28/21 16:53 09/28/21 17:00 Temperature Temperature Source Pulse Rate 138 H 137 H Pulse Rate from SpO2 Sensor Pulse Rhythm Irregular Respiratory Rate 19 20 Respiratory Effort / Characteristics Respiratory Depth Blood Pressure 166/118 H 159/102 H Blood Pressure Mean 134 121 Pulse Oximetry 93 Oxygen Delivery Method Room Air Sepsis Recent Fever Within 48 Hours Sepsis New/Unexplained Change in Mental Status Sepsis Action Taken by Nursing Physical Exam GENERAL: He is oriented to person, place, and time. He appears well-developed and well-nourished. He does not appear distressed. HENT: Exam performed. - Head: Normocephalic and atraumatic. - Right Ear: External ear normal. No mastoid tenderness. - Left Ear: External ear normal. No mastoid tenderness. - Mouth/Throat: The oropharynx is clear and moist. No trismus in the jaw. No dental abscesses or uvula swelling. No oropharyngeal exudate or tonsillar abscesses. EYES: Conjunctivae and EOM are normal. Pupils are equal, round, and reactive to light. Right eye exhibits no discharge. Left eye exhibits no discharge. No scleral icterus. NECK: Normal range of motion. Neck supple. No JVD present. No spinous process tenderness present. No carotid bruit present. No rigidity. No tracheal deviation and normal range of motion present. No Brudzinski's sign and no Kernig's sign noted. CV: Normal rate, irregular rhythm, normal heart sounds and intact distal pulses. Palpable radial pulses bue. PULM/CHEST: Effort normal and breath sounds normal. No respiratory distress. No stridor. He has no wheezes. He has no rales. - Chest Wall: He exhibits no tenderness. ABD: The abdomen is soft and obese. Surgical scar over the anterior abdomen. MUSC/SKEL: No C or T-spine tenderness. Pain on palpation of the L-spine. PICC line in right upper extremity. LYMPH: No cervical adenopathy. NEURO: He is alert and oriented to person, place, and time. He has normal strength. No cranial nerve deficit or sensory deficit. Coordination and gait normal. GCS eye subscore is 4. GCS verbal subscore is 5. GCS motor subscore is 6. Cerebellar tests wnl. No saddle anesthesia or paresthesias. SKIN: Skin is warm and dry. He is not diaphoretic. PSYCH: He has a normal mood and affect. Behavior is normal. Judgment and thought content normal. Course Course 914: The patient was evaluated in room C10. A complete history and physical exam was performed Cardiac monitoring: An order was placed for continuous cardiac monitoring. The monitor shows a rate of 110 with atrial fibrilation rhythm Administered Medications Diltiazem HCl 125 mg/ Dextrose 125 mls @ 5 mls/hr IV .Q24H [facility]; Protocol Stop: 10/28/21 13:44 Last Titration: 09/28/21 17:20 Dose: 12.5 mg/hr, 12.5 mls/hr Documented by: [id number] Cosigned by: [id number] Titration: 09/28/21 16:54 Dose: 10 mg/hr, 10 mls/hr Documented by: [id number] Cosigned by: [id number] Admin: 09/28/21 14:22 Dose: 5 mg/hr, 5 mls/hr Documented by: [id number] Cosigned by: [id number] Discontinued Medications Diazepam (Diazepam 5 Mg/Ml Inj 10ml Vial) 5 mg IV NOW STA Stop: 09/28/21 15:26 Last Admin: 09/28/21 15:32 Dose: Not Given Documented by: [id number] Diazepam (Diazepam 5 Mg/Ml Inj 10ml Vial) Confirm Administered Dose 5 mg .ROUTE .STK-MED ONE Stop: 09/28/21 15:27 Last Admin: 09/28/21 15:31 Dose: 5 mg Documented by: [id number] Diltiazem HCl (Diltiazem Hcl 5 Mg/Ml 5 Ml Vial) 15 mg IV NOW STA Stop: 09/28/21 13:32 Last Admin: 09/28/21 13:42 Dose: 15 mg Documented by: [id number] Cosigned by: [id number] Hydromorphone HCl (Hydromorphone Inj 1 Mg/Ml Syringe) 1 mg IV NOW STA Stop: 09/28/21 09:39 Last Admin: 09/28/21 09:46 Dose: 1 mg Documented by: [id number] Hydromorphone HCl (Hydromorphone Inj 1 Mg/Ml Syringe) 1 mg IV NOW STA Stop: 09/28/21 11:42 Last Admin: 09/28/21 11:59 Dose: 1 mg Documented by: [id number] Hydromorphone HCl (Hydromorphone Inj 1 Mg/Ml Syringe) 1 mg IV NOW STA Stop: 09/28/21 13:32 Last Admin: 09/28/21 14:14 Dose: 1 mg Documented by: [id number] Lorazepam (Lorazepam 2 Mg/1 Ml Vial) 1 mg IV NOW STA Stop: 09/28/21 10:22 Last Admin: 09/28/21 11:26 Dose: 1 mg Documented by: [id number] Lorazepam (Lorazepam 2 Mg/1 Ml Vial) 1 mg IV NOW STA Stop: 09/28/21 11:47 Last Admin: 09/28/21 11:59 Dose: 1 mg Documented by: [id number] Miscellaneous (Stat Iv Infusion Titration Per Protocol) 1 ea N/A NOW STA Stop: 09/28/21 13:39 Last Admin: 09/28/21 14:40 Dose: Not Given Documented by: [id number] Oxycodone/Acetaminophen (Oxycodone/Acetaminophen 10-325 Tab) 1 tab PO NOW STA Stop: 09/28/21 13:32 Last Admin: 09/28/21 13:41 Dose: 1 tab Documented by: [id number] Medical Decision Making Laboratory Data Result diagrams: 09/28/21 09:14 09/28/21 09:14 Lab Results 09/28/21 09/28/21 09/28/21 Range/Units 09:14 09:14 09:14 WBC 8.95 (4.8-10.8) K/uL RBC 4.87 (4.7-6.1) M/uL Hgb 14.8 (14.0-18.0) g/dL Hct 43.6 (42-52) % MCV 89.5 (80-100) fL MCH 30.4 (25-34) pg MCHC 33.9 (32-36) g/dL RDW Std Deviation 45.5 (36.4-46.3) fL RDW Coeff of Phu 13.9 (11.5-14.5) % Plt Count 269 (130-400) K/uL MPV 8.3 (7.4-10.4) fL Immature Gran % (Auto) 0.1 % Neut % (Auto) 71.5 % Lymph % (Auto) 18.5 % [place] % (Auto) 6.6 % Eos % (Auto) 2.9 % Baso % (Auto) 0.4 % Neut # (Auto) 6.39 (1.4-6.5) K/uL Lymph # (Auto) 1.66 (1.2-3.4) K/uL [place] # (Auto) 0.59 (0.11-0.59) K/uL Eos # (Auto) 0.26 (0-0.5) K/uL Baso # (Auto) 0.04 (0-0.2) K/uL Immature Gran # (Auto) 0.01 (0.00-0.02) K/uL ESR 27 H (0-20) mm/hr PT (9.0-12.0) Seconds INR (0.9-1.1) APTT (21.0-31.0) Seconds PTT Ratio Sodium 138 (136-145) mmol/L Potassium 3.7 (3.5-5.1) mmol/L Chloride 100 (98-107) mmol/L Carbon Dioxide 28 (21-32) mmol/L Anion Gap 10 (3-11) BUN 10 (6-23) mg/dl Creatinine 0.81 (0.6-1.4) mg/dl Est Cr Clr Drug Dosing 165.9 ml/min Est GFR ( Amer) 111.2 ml/min Est GFR (Non-Af Amer) 95.9 ml/min BUN/Creatinine Ratio 12.3 (10-20) Glucose 81 (70-99(Fasting)) mg/dl Lactate (0.4-2.0) mmol/L Calcium 8.9 (8.5-10.1) mg/dl C-Reactive Protein 4.65 H (0-0.5) mg/dl Urine Color Urine Appearance (Clear) Urine pH (4.5-7.5) Ur Specific [place] (1.000-1.030) Urine Protein (Negative) Urine Glucose (UA) (Negative) Urine Ketones (Negative) Urine Blood (Negative) Urine Nitrite (Negative) Urine Bilirubin (Negative) Urine Urobilinogen (Negative) Ur Leukocyte Esterase (Negative) Urine WBC (Auto) (0-5) /hpf Urine RBC (Auto) (0-4) /hpf U Hyaline Cast (Auto) (0-5) /lpf U Epithel Cells (Auto) (0-5) /lpf Urine Bacteria (Auto) (Negative) SARS-CoV-2, RNA, NAAT (NEGATIVE) 09/28/21 09/28/21 09/28/21 Range/Units 09:14 09:37 10:05 WBC (4.8-10.8) K/uL RBC (4.7-6.1) M/uL Hgb (14.0-18.0) g/dL Hct (42-52) % MCV (80-100) fL MCH (25-34) pg MCHC (32-36) g/dL RDW Std Deviation (36.4-46.3) fL RDW Coeff of Phu (11.5-14.5) % Plt Count (130-400) K/uL MPV (7.4-10.4) fL Immature Gran % (Auto) % Neut % (Auto) % Lymph % (Auto) % [place] % (Auto) % Eos % (Auto) % Baso % (Auto) % Neut # (Auto) (1.4-6.5) K/uL Lymph # (Auto) (1.2-3.4) K/uL [place] # (Auto) (0.11-0.59) K/uL Eos # (Auto) (0-0.5) K/uL Baso # (Auto) (0-0.2) K/uL Immature Gran # (Auto) (0.00-0.02) K/uL ESR (0-20) mm/hr PT 12.6 H (9.0-12.0) Seconds INR 1.2 H (0.9-1.1) APTT 31.7 H (21.0-31.0) Seconds PTT Ratio 1.2 Sodium (136-145) mmol/L Potassium (3.5-5.1) mmol/L Chloride (98-107) mmol/L Carbon Dioxide (21-32) mmol/L Anion Gap (3-11) BUN (6-23) mg/dl Creatinine (0.6-1.4) mg/dl Est Cr Clr Drug Dosing ml/min Est GFR ( Amer) ml/min Est GFR (Non-Af Amer) ml/min BUN/Creatinine Ratio (10-20) Glucose (70-99(Fasting)) mg/dl Lactate 1.0 (0.4-2.0) mmol/L Calcium (8.5-10.1) mg/dl C-Reactive Protein (0-0.5) mg/dl Urine Color Urine Appearance (Clear) Urine pH (4.5-7.5) Ur Specific [place] (1.000-1.030) Urine Protein (Negative) Urine Glucose (UA) (Negative) Urine Ketones (Negative) Urine Blood (Negative) Urine Nitrite (Negative) Urine Bilirubin (Negative) Urine Urobilinogen (Negative) Ur Leukocyte Esterase (Negative) Urine WBC (Auto) (0-5) /hpf Urine RBC (Auto) (0-4) /hpf U Hyaline Cast (Auto) (0-5) /lpf U Epithel Cells (Auto) (0-5) /lpf Urine Bacteria (Auto) (Negative) SARS-CoV-2, RNA, NAAT NEGATIVE (NEGATIVE) 09/28/21 Range/Units 10:22 WBC (4.8-10.8) K/uL RBC (4.7-6.1) M/uL Hgb (14.0-18.0) g/dL Hct (42-52) % MCV (80-100) fL MCH (25-34) pg MCHC (32-36) g/dL RDW Std Deviation (36.4-46.3) fL RDW Coeff of Phu (11.5-14.5) % Plt Count (130-400) K/uL MPV (7.4-10.4) fL Immature Gran % (Auto) % Neut % (Auto) % Lymph % (Auto) % [place] % (Auto) % Eos % (Auto) % Baso % (Auto) % Neut # (Auto) (1.4-6.5) K/uL Lymph # (Auto) (1.2-3.4) K/uL [place] # (Auto) (0.11-0.59) K/uL Eos # (Auto) (0-0.5) K/uL Baso # (Auto) (0-0.2) K/uL Immature Gran # (Auto) (0.00-0.02) K/uL ESR (0-20) mm/hr PT (9.0-12.0) Seconds INR (0.9-1.1) APTT (21.0-31.0) Seconds PTT Ratio Sodium (136-145) mmol/L Potassium (3.5-5.1) mmol/L Chloride (98-107) mmol/L Carbon Dioxide (21-32) mmol/L Anion Gap (3-11) BUN (6-23) mg/dl Creatinine (0.6-1.4) mg/dl Est Cr Clr Drug Dosing ml/min Est GFR ( Amer) ml/min Est GFR (Non-Af Amer) ml/min BUN/Creatinine Ratio (10-20) Glucose (70-99(Fasting)) mg/dl Lactate (0.4-2.0) mmol/L Calcium (8.5-10.1) mg/dl C-Reactive Protein (0-0.5) mg/dl Urine Color Dark Yellow Urine Appearance Clear (Clear) Urine pH 6.0 (4.5-7.5) Ur Specific [place] 1.031 H (1.000-1.030) Urine Protein Trace H (Negative) Urine Glucose (UA) Negative (Negative) Urine Ketones 2+ H (Negative) Urine Blood Negative (Negative) Urine Nitrite Negative (Negative) Urine Bilirubin Negative (Negative) Urine Urobilinogen Negative (Negative) Ur Leukocyte Esterase Negative (Negative) Urine WBC (Auto) 1-5 (0-5) /hpf Urine RBC (Auto) 0-4 (0-4) /hpf U Hyaline Cast (Auto) 1-5 (0-5) /lpf U Epithel Cells (Auto) >30 H (0-5) /lpf Urine Bacteria (Auto) Negative (Negative) SARS-CoV-2, RNA, NAAT (NEGATIVE) Imaging Data Radiologist's Impression: Lumbar Spine MRI 09/28/21 09:29 MR lumbar spine wo con CLINICAL HISTORY: 61 years-old Male with back pain recent epidural abscess. Acute severe low back pain with possible acute discitis/osteomyelitis. COMPARISON: None. TECHNIQUE: Sagittal T2 and STIR images were obtained without IV contrast. No axial images were obtained. FINDINGS: The exam was originally ordered both with and without the use of IV contrast. The patient was unable to lay still per specification consultant report. The exam is markedly motion degraded and is nearly nondiagnostic. There is progressively worsened fluid signal within the L2-L3 intervertebral disc space with marked marrow edema of the L2 and L3 vertebral bodies. There is progressively worsened edema extending into the prevertebral tissues and bilateral psoas musculature. Mild edema within the paravertebral muscles. Posterior annular disc bulging with multilevel spondylitic spurring, ligament flavum thickening and facet arthrosis redemonstrated. Moderate central canal stenosis L2-L3 and L4-L5 is again noted. Evaluation for epidural abscess is limited secondary to motion. Epidural lipomatosis. IMPRESSION: 1. The exam is markedly motion degraded and nearly nondiagnostic secondary to patient motion with decreased [id number] ratio. 2. There is progressively worsened fluid signal within the L2-L3 disc space with associated progressive bone marrow and adjacent soft tissue edema. Findings are suggestive of acute discitis/osteomyelitis. 3. Evaluation for an epidural abscess is limited secondary to the aforementioned motion artifact. ACT 112: Negative or not required by law. The above report was generated using voice recognition software. It may contain grammatical, syntax or spelling errors. Electronically signed by: Mack Andrade M.D. 09/28/2021 5:12 PM [facility] Narrative EMR reviewed. Patient was admitted to the hospital from September 12 to September 23, 2021 and was discharged 5 days ago. During that admission the patient was diag nosed with L2-L3 discitis and a small epidural abscess. Blood culture done on September 12 was positive for Enterococcus. Patient was started on daptomycin and Zosyn and then switched to ampicillin. Patient is on ampicillin IV continuous infusion through PICC line. Vital signs stable. Labs are within normal limits with exception of elevated ESR and CRP. No elevation of white blood cell count or lactic acid level. While in the emergency department patient was reporting increasing pain. Patient was also found to be in A. fib RVR. Cardizem bolus and drip were started on the patient. The patient was very difficult to do an MRI on. Patient was sent and returned back from MRI multiple times due to him saying he was claustrophobic this and having pain despite multiple doses of anxiolytics and analgesia. The last time the patient was in the MRI machine the MRI had to be stopped because the patient informed the MRI staff that he had to have a bowel movement. It is not thought that the patient would be a good candidate for conscious sedation an MRI given his extreme body habitus. Limited MRI was performed and it did show evolving discitis/osteomyelitis and could not assess for epidural abscess. Patient be started on broader antibiotics and [facility] Dr. Almonte will accept the patient. Zosyn and Daptomycin ordered for the patient. Patient has no signs of cord compression as he has no saddle anesthesia or paresthesias no fecal or urinary incontinence no fecal or urinary retention. Impression & Plan Discitis, Osteomyelitis, Atrial fibrillation with RVR Critical Care Time Critical Care Time: Yes Total Critical Care Time: 120 I have personally spent greater than 120 minutes of critical care time in the direct management of this patient. This includes bedside care, interpretation of diagnostic studies, and testing, discussion with consultants, patient, and family members, and other required patient management activities. This 120 minutes is in excess of all separately billable procedures. Discharge Plan Visit Data Chief Complaint: Back Injury/Pain Stated Complaint: BACK PAIN, UNABLE TO AMBULATE ED Provider: Narendra Abebe Discharge Problem: Discitis, Osteomyelitis, Atrial fibrillation with RVR Patient Disposition: Admitted As Inpatient Forms Stand Alone Forms: [facility] Prescriptions Prescriptions: No Action potassium chloride [Klor-Con] 20 mEq packet 20 meq PO QPM RF: 0 furosemide [Lasix] 40 mg tablet 40 mg PO QAM PRN (Reason: Edema) RF: 0 ferrous sulfate [iron] 325 mg (65 mg iron) Tablet 325 mg PO QAM RF: 0 trazodone 50 mg Tablet 150 mg PO QPM PRN (Reason: Sleep) RF: 0 metoprolol succinate 100 mg Tablet Extended Release 24 Hr 100 mg PO BID RF: 0 pantoprazole 40 mg Tablet,Delayed Release (Dr/Ec) 40 mg PO DAILY PRN (Reason: Gi Upset) RF: 0 ergocalciferol (vitamin D2) [Vitamin D2] 50,000 unit Capsule 50,000 unit PO WK RF: 0 diltiazem HCl 240 mg Tablet Extended Release 24 Hr 240 mg PO QAM RF: 0 diclofenac sodium 1 % Gel 2 g TOPICAL QID PRN (Reason: Pain) RF: 0 Xarelto 20 mg Tablet 20 mg PO PM RF: 0 magnesium oxide 400 mg magnesium Tablet 400 mg PO BID RF: 0 levothyroxine 125 mcg tablet 125 mcg PO DAILY RF: 0 cyclobenzaprine 10 mg Tablet 10 mg PO TID 30 Days Qty: 90 RF: 0 acetaminophen 325 mg Tablet 650 mg PO TID 30 Days Qty: 180 RF: 0 gabapentin 600 mg Tablet 600 mg PO TID 30 Days Qty: 90 RF: 0 lidocaine 5 % Adhesive Patch,Medicated 1 patch transdermal QAM Qty: 30 RF: 0 oxycodone 5 mg Tablet 10 mg PO Q4H PRN (Reason: pain) 15 Days Qty: 30 RF: 0 naproxen sodium [Aleve] 220 mg Capsule 220 mg PO Q12H PRN (Reason: Pain) 14 Days Qty: 30 RF: 0 Referrals Referrals: Sandi Roman [Primary Care Provider] - Discharge Problem: Discitis Qualifiers: Spinal region: lumbar Qualified Code(s): M46.46 - Discitis, unspecified, lumbar region Osteomyelitis Qualifiers: Osteomyelitis type: unspecified type Osteomyelitis location: unspecified site Qualified Code(s): M86.9 - Osteomyelitis, unspecified
[2021-09-28] MEDS ORDERED: HYDROmorphone INJ 1 MG/ML SYRINGE IV STA ×3 (09:38→13:31)
[2021-09-28 09:41] LABS: INR 1.2 (0.9-1.1); Partial Thromboplastin Ratio 1.2; Partial Thromboplastin Time 31.7 Seconds (21.0-31.0); Prothrombin Time 12.6 Seconds (9.0-12.0)
[2021-09-28 09:55] LABS: BUN Creatinine Ratio 12.3 (10-20); C Reactive Protein 4.65 mg/dl (0-0.5); Calcium 8.9 mg/dl (8.5-10.1); Creatinine Clr Calc Pharmacy 165.9 ml/min; Est GFR (African American) 111.2 ml/min; Est GFR (Non-African American) 95.9 ml/min; Potassium 3.7 mmol/L (3.5-5.1)
[2021-09-28] MEDS ORDERED: LORazepam 2 MG/1 ML VIAL IV STA ×2 (10:21→11:46)
[2021-09-28 10:37] LABS: Appearance Urine Clear (Clear); Bacteria Urine Automated Negative (Negative); Bilirubin Urine Negative (Negative); Blood Urine Negative (Negative); Color Urine Dark Yellow; Epithelial Cell Urine Auto >30 /lpf (0-5); Glucose Urine UA Negative (Negative); Ketones Urine 2+ (Negative); Leukocyte Esterase Urine Negative (Negative); Nitrite Urine Negative (Negative); Protein Urine Trace (Negative); RBC Urine Automated 0-4 /hpf (0-4); Specific Gravity Urine 1.031 (1.000-1.030); Urobilinogen Urine Negative (Negative)
[2021-09-28] MEDS ORDERED: dilTIAZem HCl 5 MG/ML 5 ML VIAL IV STA (13:31)
[2021-09-28] MEDS ORDERED: oxyCODONE/ACETAMINOPHEN 10-325 TAB PO STA (13:31)
[2021-09-28] MEDS ORDERED: STAT IV Infusion **Titration per Protocol STA (13:38)
[2021-09-28] MEDS: dilTIAZem HCL 125 MG in DEXTROSE 5% 100 ML IV SCH (14:22)
--- NOTE | 2021-09-28 17:15 | Magnetic Resonance Report ---
MR lumbar spine wo con CLINICAL HISTORY: 61 years-old Male with back pain recent epidural abscess. Acute severe low back pa in with possible acute discitis/osteomyelitis. COMPARISON: None. TECHNIQUE: Sagittal T2 and STIR images were obtained without IV contrast. No axial images were obtain ed. FINDINGS: The exam was originally ordered both with and without the use of IV contrast. The patient was unable to lay still per cnc field service engineer report. The exam is markedly motion degraded and is nearly nondiagnostic . There is progressively worsened fluid signal within the L2-L3 intervertebral disc space with marked marrow edema of the L2 and L3 vertebral bodies. There is progressively worsened edema extending into the prevertebral tissues and bilateral psoas musculature. Mild edema within the paravertebral muscle s. Posterior annular disc bulging with multilevel spondylitic spurring, ligament flavum thickening an d facet arthrosis redemonstrated. Moderate central canal stenosis L2-L3 and L4-L5 is again noted. Ebony luation for epidural abscess is limited secondary to motion. Epidural lipomatosis. IMPRESSION: 1. The exam is markedly motion degraded and nearly nondiagnostic secondary to patient motion with dec reased [id number] ratio. 2. There is progressively worsened fluid signal within the L2-L3 disc space with associated progressi ve bone marrow and adjacent soft tissue edema. Findings are suggestive of acute discitis/osteomyeliti s. 3. Evaluation for an epidural abscess is limited secondary to the aforementioned motion artifact. ACT 112: Negative or not required by law. The above report was generated using voice recognition software. It may contain grammatical, syntax o r spelling errors. Electronically signed by: Mack Andrade M.D. 09/28/2021 5:12 PM
[2021-09-28] MEDS ORDERED: VANCOMYCIN CONSULT ACTIVE PRN (17:25)
[2021-09-28] MEDS ORDERED: PIPERACILLIN/TAZOBACTAM 4.5 GM/120 ML BAG IV ONE (17:25)
[2021-09-28] MEDS ORDERED: VANCOMYCIN HCL 2,750 MG in SODIUM CHLORIDE 0.9% 500 ML IV ONE (17:25)
[2021-09-28] MEDS ORDERED: DAPTOmycin 750 MG in SYRINGE 0 ML IV ONE (17:45)
--- NOTE | 2021-09-28 17:55 | History & Physical Report ---
Date of Service September 28, 2021 Assessment & Plan (1) Discitis: (2) Osteomyelitis: (3) Atrial fibrillation with RVR: (4) Depression: Plan: Worsening discitis (recent enterococcal bacteremia and discitis/abscess on iv ampicillin triaged for 6 weeks, no IE in TTE)- No cauda equina symptoms or red flag signs. MRI markedly degraded by motion but shows progressively worsened fluid signal within the L2-L3 disc space with associated progressive bone marrow and adjacent soft tissue edema. Findings are suggestive of acute discitis/osteomyelitis; unable to evaluate for epidural abscess. Given dapto/zosyn in ED. WBC normal, inflammatory markers improving. Will continue zosyn for now. Pain management. Repeat MRI L spine w/wo contrast in am. Consult back surgery and ID. Will likely need transfer to tertiary center if worsening discitis/epidural abscess. Follow blood clx results. Paroxysmal Afib with RVR- continue cardizem drip. Hold xarelto and will start heparin drip as he might need to be transferred and might need procedure. Taking xarelto at home faithfully. Change to po when Afib controlled. No need for repeat echo at this point. GERD- continue PPI Morbid obesity- BMI 82. Weight loss recommended HTN- on cardizem drip, on toprol. Hypothyroidism- continue synthroid DVT prophylaxis- heparin drip Dispo- PCU with tele Code status- Full code History of Present Illness Chief Complaint: Worsening back pain Primary Care Provider: Sandi Roman 61 yo male with h/o Afib, HTN, hypothyroidism, morbid obesity who was recently admitted to [facility] from 09/12-09/23 for enterococcal bacteremia and discitis and discharged home on iv ampicillin for 6 weeks presented to the ED with worsening back pain. States he was good for 1 day after discharge but since then he has been having worsening back pain with radiculopathy down the legs, not controlled with pain medications, more with activities but also at rest. Same character of pain, Denies any bladder bowel incontinence or perineal paresthesia. no fever or chills, no N/V. His pain was difficult to control in the ED and he was unable to get MRI properly. He states he is willing to get repeat MRI tomorrow as well as transfer to [place] if necessary. Regular bowel movements, last one this morning. Voiding without issues in the ED. He also went into Afib with RVR in the ED. he states he has been taking his xarelto without missing a dose. Allergies Allergy/AdvReac Type Severity Reaction Status Date / Time No Known Allergies Allergy ` Verified 09/12/21 17:41 Home Medications Medication Instructions Recorded Confirmed Type diclofenac sodium 1 % topical gel 2 g TOPICAL QID PRN 11/24/18 09/12/21 History diltiazem HCl 240 mg 240 mg PO QAM 11/24/18 09/12/21 History tablet,extended release 24 hr ergocalciferol (vitamin D2) 1,250 50,000 unit PO WK 11/24/18 09/12/21 History mcg (50,000 unit) capsule (Vitamin D2) magnesium oxide 400 mg PO BID 11/24/18 09/12/21 History metoprolol succinate 100 mg 100 mg PO BID 11/24/18 09/12/21 History tablet,extended release 24 hr pantoprazole 40 mg tablet,delayed 40 mg PO DAILY PRN 11/24/18 09/12/21 History release rivaroxaban 20 mg tablet (Xarelto) 20 mg PO PM 11/24/18 09/12/21 History trazodone 50 mg tablet 150 mg PO QPM PRN 11/24/18 09/12/21 History ferrous sulfate 325 mg (65 mg 325 mg PO QAM 11/28/18 09/12/21 History iron) tablet (iron) furosemide 40 mg tablet (Lasix) 40 mg PO QAM PRN 08/01/19 09/12/21 History potassium chloride 20 mEq oral 20 meq PO QPM 08/01/19 09/12/21 History packet (Klor-Con) levothyroxine 125 mcg tablet 125 mcg PO DAILY 09/10/21 09/12/21 History oxycodone 5 mg tablet 5 mg PO Q6H PRN #8 tab 09/10/21 09/12/21 Rx acetaminophen 325 mg tablet 650 mg PO TID 30 Days #180 tab 09/23/21 Rx cyclobenzaprine 10 mg tablet 10 mg PO TID 30 Days #90 tab 09/23/21 Rx gabapentin 600 mg tablet 600 mg PO TID 30 Days #90 tab 09/23/21 Rx lidocaine 5 % topical patch 1 patch TRANSDERMAL QAM #30 ea 09/23/21 Rx naproxen sodium 220 mg capsule 220 mg PO Q12H PRN 14 Days #30 cap 09/23/21 Rx (Aleve) oxycodone 5 mg tablet 10 mg PO Q4H PRN 15 Days #30 tab 09/23/21 Rx Past Med/Surg History Medical History Chronic anticoagulation Coronary artery disease "moderate disease per cardiac cath [facility] 2013; 50% LAD, 40% RCA" Depression Diabetes mellitus type 2, controlled History of colonic polyps History of urinary calculi "right ureteral stone 2015" Hx of sciatica Hypertension Hypothyroidism Insomnia Iron deficiency anemia "heme + stool 2015, subsequent EGD and colonoscopy neg except for polyp" Lumbar disc herniation Lumbar radiculopathy Morbid obesity Paroxysmal atrial fibrillation Ventricular septal defect Vitamin B12 deficiency Surgical History Status post cardiac catheterization "2013, 50% LAD, 40% RCA" Status post cystoscopy "with right ureteroscopy, laser lithotripsy, basket stone extraction" Status post gastric bypass for obesity Social History Smoking Status: Former smoker Hx Alcohol Use: Yes Alcohol type: beer Hx Substance Use: No Preferred Language: Moroccan Communication Ability: Effective Hearing Ability: Normal Hazard Mitigation Officer Required: No Beliefs That Will Affect Care: None marital status: single Current Living Situation: Alone Feels Safe at Home: Yes Assistive Devices: Walker Review of Systems Review of Systems: All systems reviewed & are unremarkable except as noted in Subjective Physical Exam Physical Exam: General: Morbidly obese, lying in bed, uncomfortable because of pain, on room air HEENT: EOMI, JEFFRY, MMM Chest: Clear breath sounds bilaterally, no wheezes or crackles CVS: Regular rate and rhythm, normal heart sounds, no murmur Abdomen: Soft, non tender, not distended, normal bowel sounds Neuro: Awake, alert, oriented, conversing well, non focal Extremities: No cyanosis, clubbing or edema. Strength and sensation intact. Results & Data Results & Data ([facility]) Vital Signs (Past 12 Hours) Vital Signs Temp Pulse Resp BP Pulse Ox 09/28/21 17:00 137 H 20 159/102 H 93 09/28/21 16:53 138 H 19 166/118 H 09/28/21 16:45 133 H 92 09/28/21 14:30 132 H 23 09/28/21 14:01 126 H 20 111/94 09/28/21 14:00 111 H 22 09/28/21 13:46 116 H 25 H 131/90 09/28/21 13:32 142 H 31 H 142/102 H 94 09/28/21 13:30 134 H 20 121/96 92 09/28/21 13:26 132 H 14 122/97 09/28/21 13:00 131 H 21 122/97 93 09/28/21 12:38 142 H 22 129/98 93 09/28/21 12:25 138 H 24 91 09/28/21 12:23 133 H 20 09/28/21 10:30 111 H 15 09/28/21 10:00 126 H 18 09/28/21 09:30 111 H 16 09/28/21 09:16 131 H 13 95 09/28/21 09:14 36.8 C 135 H 18 146/93 H 93 Laboratory Results Short CBC 09/28/21 Range/Units 09:14 WBC 8.95 (4.8-10.8) K/uL Hgb 14.8 (14.0-18.0) g/dL Hct 43.6 (42-52) % Plt Count 269 (130-400) K/uL BMP 09/28/21 09:14 Sodium 138 Potassium 3.7 Chloride 100 Carbon Dioxide 28 BUN 10 Creatinine 0.81 Glucose 81 Calcium 8.9 Urine 09/28/21 Range/Units 10:22 Urine Color Dark Yellow Urine Appearance Clear (Clear) Urine pH 6.0 (4.5-7.5) Ur Specific [place] 1.031 H (1.000-1.030) Urine Protein Trace H (Negative) Urine Glucose (UA) Negative (Negative) Diagnostic Findings Lumbar Spine MRI 09/28/21 09:29 MR lumbar spine wo con CLINICAL HISTORY: 61 years-old Male with back pain recent epidural abscess. Acute severe low back pain with possible acute discitis/osteomyelitis. COMPARISON: None. TECHNIQUE: Sagittal T2 and STIR images were obtained without IV contrast. No axial images were obtained. FINDINGS: The exam was originally ordered both with and without the use of IV contrast. The patient was unable to lay still per blindstitch machine operator report. The exam is markedly motion degraded and is nearly nondiagnostic. There is progressively worsened fluid signal within the L2-L3 intervertebral disc space with marked marrow edema of the L2 and L3 vertebral bodies. There is progressively worsened edema extending into the prevertebral tissues and bilateral psoas musculature. Mild edema within the paravertebral muscles. Posterior annular disc bulging with multilevel spondylitic spurring, ligament flavum thickening and facet arthrosis redemonstrated. Moderate central canal stenosis L2-L3 and L4-L5 is again noted. Evaluation for epidural abscess is limited secondary to motion. Epidural lipomatosis. IMPRESSION: 1. The exam is markedly motion degraded and nearly nondiagnostic secondary to patient motion with decreased [id number] ratio. 2. There is progressively worsened fluid signal within the L2-L3 disc space with associated progressive bone marrow and adjacent soft tissue edema. Findings are suggestive of acute discitis/osteomyelitis. 3. Evaluation for an epidural abscess is limited secondary to the aforementioned motion artifact. ACT 112: Negative or not required by law. The above report was generated using voice recognition software. It may contain grammatical, syntax or spelling errors. Electronically signed by: Mack Andrade M.D. 09/28/2021 5:12 PM Medications Administered Current Inpatient Medications Diltiazem HCl 125 mg/ Dextrose 125 mls @ 5 mls/hr IV .Q24H ABDI; Protocol Stop: 10/28/21 13:44 Last Titration: 09/28/21 17:20 Dose: 12.5 mg/hr, 12.5 mls/hr Documented by: Piperacillin Sod/Tazobactam Sod (Zosyn) 4.5 gm in 120 mls @ 240 mls/hr IV NOW ONE Stop: 09/28/21 17:54 (1) Discitis Spinal region: lumbar Qualified Code(s): M46.46 - Discitis, unspecified, lumbar region (2) Osteomyelitis Osteomyelitis location: unspecified site Osteomyelitis type: unspecified type Qualified Code(s): M86.9 - Osteomyelitis, unspecified
[2021-09-28] MEDS ORDERED: Heparin IV Adult Wt-Based Low-Dose *NO* Bolus Protocol IV STA (18:03)
[2021-09-28] MEDS ORDERED: ACETAMINOPHEN 325 MG TAB PO PRN (18:03)
[2021-09-28] MEDS ORDERED: PANTOprazole 40 MG TAB PO PRN (19:45)
[2021-09-28] MEDS ORDERED: traZODone HCL 50 MG TAB PO PRN (19:45)
[2021-09-28] MEDS ORDERED: PIPERACILL/TAZOBAC CONSULT ACTIVE PRN (19:45)
[2021-09-28] MEDS ORDERED: POLYETHYLENE (MIRALAX) 17 GM PACK PO PRN (19:45)
[2021-09-28] MEDS ORDERED: PIPERACILLIN/TAZOBACTAM 4.5 GM in DEXTROSE 5% 100 ML IV ONE (20:15)
[2021-09-28 21:15] LABS: Partial Thromboplastin Ratio 1.2; Partial Thromboplastin Time 34.1 Seconds (21.0-31.0)
[2021-09-28] MEDS: HEPARIN SODIUM/DEXTROSE 25,000 UNITS/500 ML BAG IV SCH (21:56)
[2021-09-28] MEDS: LIDOCAINE 5% 1 PATCH TD SCH (22:03)
[2021-09-28] MEDS: GABAPENTIN 600 MG TAB PO SCH (22:04)
[2021-09-28] MEDS: METOPROLOL SUCC 50MG EXT REL TAB PO SCH (22:07)
[2021-09-28] MEDS: DOCUSATE SODIUM 100 MG CAP PO SCH (22:07)
[2021-09-28] MEDS ORDERED: PROMETHAZINE HCL 12.5 MG in SODIUM CHLORIDE 0.9% 50 ML IV STA (22:59)
[2021-09-29] MEDS: dilTIAZem HCL 125 MG in DEXTROSE 5% 100 ML IV SCH ×3 (00:09→16:32)
[2021-09-29] MEDS: PIPERACILLIN/TAZOBACTAM 4.5 GM in DEXTROSE 5% 100 ML IV SCH ×3 (00:27→16:32)
[2021-09-29] MEDS ORDERED: PIPERACILLIN/TAZOBACTAM 4.5 GM in DEXTROSE 5% 100 ML IV SCH (02:00)
[2021-09-29] MEDS ORDERED: PIPERACILLIN/TAZOBACTAM 3.375 GM in DEXTROSE 5% 100 ML IV SCH (02:00)
[2021-09-29 05:33] LABS: BUN Creatinine Ratio 13.3 (10-20); Calcium 8.7 mg/dl (8.5-10.1); Est GFR (African American) 125.8 ml/min; Est GFR (Non-African American) 108.5 ml/min; Partial Thromboplastin Ratio 1.3; Partial Thromboplastin Time 36.9 Seconds (21.0-31.0); Potassium 3.3 mmol/L (3.5-5.1)
[2021-09-29] MEDS ORDERED: HEPARIN IV BOLUS 4,500 UNITS in SYRINGE 0 ML IV ONE (05:45)
[2021-09-29] MEDS ORDERED: LEVOTHYROXINE SODIUM 125 MCG TABLET PO SCH (06:30)
[2021-09-29] MEDS: oxyCODONE HCL IR 5 MG TAB (IMMEDIATE RELEASE) PO PRN ×3 (08:00→19:04)
[2021-09-29] MEDS ORDERED: POTASSIUM CHLORIDE / WTR 10 MEQ/100 ML PLCT IV ONE (08:30)
[2021-09-29] MEDS ORDERED: POTASSIUM CHLORIDE CRTAB 20 MEQ TABCR PO SCH (09:00)
[2021-09-29] MEDS: DOCUSATE SODIUM 100 MG CAP PO SCH (09:08)
[2021-09-29] MEDS: GABAPENTIN 600 MG TAB PO SCH ×3 (09:21→20:04)
[2021-09-29] MEDS: METOPROLOL SUCC 50MG EXT REL TAB PO SCH ×2 (09:22→20:04)
[2021-09-29] MEDS: KETOROLAC 30 MG/ML VIAL IV PRN ×2 (09:30→16:45)
[2021-09-29] MEDS ORDERED: DOCUSATE SODIUM 100 MG CAP PO PRN (09:51)
--- NOTE | 2021-09-29 09:51 | Hospitalist Progress Note ---
Date of Service September 29, 2021 Assessment & Plan (1) Discitis: (2) Osteomyelitis: (3) Atrial fibrillation with RVR: (4) Depression: Plan: Worsening discitis (recent enterococcal bacteremia and discitis/abscess on iv ampicillin triaged for 6 weeks, no IE in TTE)- No cauda equina symptoms or red flag signs. MRI markedly degraded by motion but shows progressively worsened fluid signal within the L2-L3 disc space with associated progressive bone marrow and adjacent soft tissue edema. Findings are suggestive of acute discitis/osteomyelitis; unable to evaluate for epidural abscess. Given dapto/zosyn in ED. WBC normal, inflammatory markers improving. - Currently on zosyn, blood clx pending - ID and ortho eval pending - Repeat MRI L spine w/wo contrast pending - Potential transfer to tertiary center pending MRI spine, and ID/ortho eval - Pain management- toradol prn, dilaudid prn, oxy prn, lidocaine patch, tylenol, heat pad - Having regular bowel movements without need for any bowel regimen Paroxysmal Afib with RVR - now rate controlled, on cardizem drip. - On toprol and po cardizem. - Wean off cardizem drip as tolerated. - Xarelto on hold and on heparin drip for anticoagulation as heis a potential transfer to tertiary center given his worsening discitis on imaging. Hypokalemia- repleted, recheck in am GERD- continue PPI Morbid obesity- BMI 82. Weight loss recommended HTN- on cardizem, toprol. Hypothyroidism- continue synthroid DVT prophylaxis- heparin drip Dispo- Pending MRI, ID/ortho eval Code status- Full code Admission and Anticipated Discharge Date Admission Date: September 28, 2021 Subjective Seen and examined at bedside. Continues to have severe back pain with radiculopathy down the legs, currently 8/10. No change in character of pain. Had BM this morning. Voiding without issues. No numbness, weakness, tingling. No fever or chills. Waiting for MRI today. Physical Exam Physical Exam: General: Morbidly obese, lying in bed, not in acute distress, on room air HEENT: EOMI, JEFFRY, MMM Chest: Clear breath sounds anteriorly no wheezes or crackles CVS: Irregular, normal heart sounds, no murmur Abdomen: Soft, non tender, not distended, normal bowel sounds Neuro: Awake, alert, oriented, conversing well, non focal Extremities: No cyanosis, clubbing or edema. Strength and sensation intact. Results & Data Results & Data ([facility]) Vital Signs (Past 12 Hours) Vital Signs Temp Pulse Resp BP Pulse Ox 09/29/21 07:10 36.7 C 90 18 146/77 H 97 09/29/21 02:57 36.5 C 94 H 18 115/71 99 09/29/21 00:20 88 123/77 09/28/21 22:09 97 H 108/71 Laboratory Results BMP 09/28/21 09/29/21 09:14 04:44 Sodium 138 137 Potassium 3.7 3.3 L Chloride 100 99 Carbon Dioxide 28 26 BUN 10 8 Creatinine 0.81 0.60 Glucose 81 97 Calcium 8.9 8.7 Urine 09/28/21 Range/Units 10:22 Urine Color Dark Yellow Urine Appearance Clear (Clear) Urine pH 6.0 (4.5-7.5) Ur Specific [place] 1.031 H (1.000-1.030) Urine Protein Trace H (Negative) Urine Glucose (UA) Negative (Negative) Medications Administered Current Inpatient Medications Acetaminophen (Acetaminophen 325 Mg Tab) 650 mg PO Q4 PRN PRN Reason: mild pain Stop: 10/28/21 18:02 Last Admin: 09/29/21 00:33 Dose: 650 mg Documented by: Cyclobenzaprine HCl (Cyclobenzaprine Hcl 10 Mg Tab) 10 mg PO TID PRN PRN Reason: spasm Stop: 10/28/21 19:44 Diltiazem HCl (Diltiazem Hcl 120 Mg Er Cap) 240 mg PO QAM [facility] Stop: 10/29/21 08:59 Last Admin: 09/29/21 09:23 Dose: 240 mg Documented by: Docusate Sodium (Docusate Sodium 100 Mg Cap) 100 mg PO BID ABDI Stop: 10/28/21 20:59 Last Admin: 09/29/21 09:08 Dose: Not Given Documented by: Gabapentin (Gabapentin 600 Mg Tab) 600 mg PO TID [facility] Stop: 10/28/21 20:59 Last Admin: 09/29/21 09:21 Dose: 600 mg Documented by: Heparin Sodium (Beef Lung) (Heparin 10 Unit/Ml 5 Ml Flush) 5 ml FLUSH PRN PRN PRN Reason: Flush Stop: 10/29/21 02:41 Hydromorphone HCl (Hydromorphone Inj 1 Mg/Ml Syringe) 1 mg IV Q3H PRN PRN Reason: severe pain if unable for po Stop: 10/12/21 19:44 Diltiazem HCl 125 mg/ Dextrose 125 mls @ 15 mls/hr IV .Q8H20M [facility]; Protocol Stop: 10/28/21 13:44 Last Admin: 09/29/21 08:38 Dose: 15 mg/hr, 15 mls/hr Documented by: Heparin Sodium/Dextrose (Heparin Sodium/Dextrose) 25,000 units in 500 mls @ 25 mls/hr IV .Q20H [facility]; Protocol Stop: 10/28/21 19:44 Last Titration: 09/29/21 07:17 Dose: 1,250 units/hr, 25 mls/hr Documented by: Piperacillin Sod/Tazobactam (Sod 4.5 gm/ Dextrose) 120 mls @ 30 mls/hr IV Q8H [facility]; Protocol Stop: 11/10/21 00:00 Last Admin: 09/29/21 09:20 Dose: 30 mls/hr Documented by: Ketorolac Tromethamine (Ketorolac 30 Mg/Ml Vial) 30 mg IV Q6H PRN PRN Reason: Pain Stop: 10/03/21 19:44 Last Admin: 09/29/21 09:30 Dose: 30 mg Documented by: Levothyroxine Sodium (Levothyroxine Sodium 125 Mcg Tablet) 125 mcg PO DAILYBB [facility] Stop: 10/29/21 06:29 Last Admin: 09/29/21 06:11 Dose: 125 mcg Documented by: Lidocaine (Lidocaine 5% 1 Patch) 1 patch TD DAILY@1999 [facility] Stop: 10/28/21 19:59 Last Admin: 09/28/21 22:03 Dose: 1 patch Documented by: Metoprolol Succinate (Metoprolol Succ 50mg Ext Rel Tab) 100 mg PO BID [facility] Stop: 10/28/21 20:59 Last Admin: 09/29/21 09:22 Dose: 100 mg Documented by: Miscellaneous (Remove Lidoderm Patch) 1 ea N/A DAILY@0800 [facility] Stop: 10/29/21 07:59 Last Admin: 09/29/21 09:21 Dose: Not Given Documented by: Miscellaneous Information (Piperacill/Tazobac Consult Active) 1 ea N/A UD PRN PRN Reason: Consult Stop: 10/28/21 19:44 Oxycodone HCl (Oxycodone Hcl Ir 5 Mg Tab (Immediate Release)) 10 mg PO Q4H PRN PRN Reason: pain Stop: 10/12/21 19:44 Last Admin: 09/29/21 08:00 Dose: 10 mg Documented by: Pantoprazole Sodium (Pantoprazole 40 Mg Tab) 40 mg PO DAILY PRN PRN Reason: Gi Upset Stop: 10/28/21 19:44 Polyethylene Glycol (Polyethylene (Miralax) 17 Gm Pack) 17 gm PO DAILY PRN PRN Reason: Constipation Stop: 10/28/21 19:44 Potassium Chloride (Potassium Chloride Crtab 20 Meq Tabcr) 40 meq PO DAILY ABDI Stop: 10/01/21 08:59 Last Admin: 09/29/21 09:21 Dose: 40 meq Documented by: Trazodone HCl (Trazodone Hcl 50 Mg Tab) 150 mg PO QPM PRN PRN Reason: Sleep Stop: 10/28/21 19:44 (1) Discitis Spinal region: lumbar Qualified Code(s): M46.46 - Discitis, unspecified, lumbar region (2) Osteomyelitis Osteomyelitis location: unspecified site Osteomyelitis type: unspecified type Qualified Code(s): M86.9 - Osteomyelitis, unspecified
--- NOTE | 2021-09-29 11:35 | Orthopedic Consultation ---
Date of Consultation September 29, 2021 Assessment & Plan (1) Discitis: This time the patient appears to be declining. An updated MRI has been performed is quite difficult to interpret secondary to body habitus and motion. Nevertheless he appears to have progressive discitis and perhaps evidence of neural encroachment certainly with weightbearing. Does not involve his left hip per my exam. At this point as he seems to be failing his current regiment of IV antibiotics he may need to consider transfer to a tertiary care. He is beyond the scope of our ability to handle him surgically at this hospital. Patient understands and agrees. History of Present Illness Reason for Consultation: Back pain and left leg pain Attending Physician: Osmin Almonte MD History of Present Illness This is a 61-year-old male with known lumbar discitis presents with markedly worsening back pain and inability to ambulate. He states he is comfortable while lying supine but when he tries to walk he has pain in the back rating into left buttock and left anterior thigh. It prohibits him from ambulating. He denies any numbness and tingling in his legs during our discussion today. Denies any gross strength deficits. Allergies Allergy/AdvReac Type Severity Reaction Status Date / Time No Known Allergies Allergy ` Verified 09/28/21 18:15 Home Medications Medication Instructions Recorded Confirmed Type diclofenac sodium 1 % topical gel 2 g TOPICAL QID PRN 11/24/18 09/28/21 History diltiazem HCl 240 mg 240 mg PO QAM 11/24/18 09/28/21 History tablet,extended release 24 hr ergocalciferol (vitamin D2) 1,250 50,000 unit PO WK 11/24/18 09/28/21 History mcg (50,000 unit) capsule (Vitamin D2) magnesium oxide 400 mg PO BID 11/24/18 09/28/21 History metoprolol succinate 100 mg 100 mg PO BID 11/24/18 09/28/21 History tablet,extended release 24 hr pantoprazole 40 mg tablet,delayed 40 mg PO DAILY PRN 11/24/18 09/28/21 History release rivaroxaban 20 mg tablet (Xarelto) 20 mg PO PM 11/24/18 09/28/21 History trazodone 50 mg tablet 150 mg PO QPM PRN 11/24/18 09/28/21 History ferrous sulfate 325 mg (65 mg 325 mg PO QAM 11/28/18 09/28/21 History iron) tablet (iron) furosemide 40 mg tablet (Lasix) 40 mg PO QAM PRN 08/01/19 09/28/21 History potassium chloride 20 mEq oral 20 meq PO HS 08/01/19 09/28/21 History packet (Klor-Con) levothyroxine 125 mcg tablet 125 mcg PO DAILY 09/10/21 09/28/21 History oxycodone 5 mg tablet 5 mg PO Q6H PRN #8 tab 09/10/21 09/12/21 Rx acetaminophen 325 mg tablet 650 mg PO TID 30 Days #180 tab 09/23/21 09/28/21 Rx cyclobenzaprine 10 mg tablet 10 mg PO TID 30 Days #90 tab 09/23/21 09/28/21 Rx gabapentin 600 mg tablet 600 mg PO TID 30 Days #90 tab 09/23/21 09/28/21 Rx naproxen sodium 220 mg capsule 220 mg PO Q12H PRN 14 Days #30 cap 09/23/21 09/28/21 Rx (Aleve) escitalopram oxalate 20 mg tablet 20 mg PO DAILY 09/28/21 09/28/21 History ibuprofen 200 mg tablet 200 mg PO Q6H PRN 09/28/21 09/28/21 History meloxicam 15 mg tablet 15 mg PO QAM 09/28/21 09/28/21 History oxycodone 5 mg tablet 5 mg PO Q6H PRN 09/28/21 09/28/21 History Patient History Medical History Chronic anticoagulation Coronary artery disease "moderate disease per cardiac cath [facility]2013; 50% LAD, 40% RCA" Depression Diabetes mellitus type 2, controlled History of colonic polyps History of urinary calculi "right ureteral stone 2015" Hx of sciatica Hypertension Hypothyroidism Insomnia Iron deficiency anemia "heme + stool 2015, subsequent EGD and colonoscopy neg except for polyp" Lumbar disc herniation Lumbar radiculopathy Morbid obesity Paroxysmal atrial fibrillation Ventricular septal defect Vitamin B12 deficiency Surgical History Status post cardiac catheterization "2013, 50% LAD, 40% RCA" Status post cystoscopy "with right ureteroscopy, laser lithotripsy, basket stone extraction" Status post gastric bypass for obesity Social History Smoking Status: Former smoker Hx Alcohol Use: Yes (occasional drink) Alcohol type: hard liquor Hx Substance Use: No Preferred Language: Sami Communication Ability: Effective Hearing Ability: Normal Machinist Automotive Required: No Beliefs That Will Affect Care: None marital status: single Current Living Situation: Alone Feels Safe at Home: Yes Safety Concerns: Feels Safe At This Time Assistive Devices: Walker Physical Exam Physical Exam: On exam he is reasonable plantar flexion dorsiflexion quadriceps bilaterally. Is able to raise his legs off the bed without difficulty. There is no tension signs. He has negative logroll. There is no tenderness to palpation of the left trochanteric region. Results & Data ([facility]) Vital Signs (Past 12 Hours) Vital Signs Temp Pulse Resp BP Pulse Ox 09/29/21 07:10 36.7 C 90 18 146/77 H 97 09/29/21 02:57 36.5 C 94 H 18 115/71 99 09/29/21 00:20 88 123/77 (1) Discitis Spinal region: lumbar Qualified Code(s): M46.46 - Discitis, unspecified, lumbar region
[2021-09-29] MEDS: HYDROmorphone INJ 1 MG/ML SYRINGE IV PRN ×2 (11:54→16:46)
[2021-09-29 12:34] LABS: Partial Thromboplastin Ratio 1.6; Partial Thromboplastin Time 44.7 Seconds (21.0-31.0)
[2021-09-29] MEDS: CYCLOBENZAPRINE HCL 10 MG TAB PO PRN ×2 (12:47→19:05)
--- NOTE | 2021-09-29 14:48 | Discharge Summary ---
Date of Service September 29, 2021 Admission HPI Per Admitting Provider 61 yo male with h/o Afib, HTN, hypothyroidism, morbid obesity who was recently admitted to [facility] from 09/12-09/23 for enterococcal bacteremia and discitis and discharged home on iv ampicillin for 6 weeks presented to the ED with worsening back pain. States he was good for 1 day after discharge but since then he has been having worsening back pain with radiculopathy down the legs, not controlled with pain medications, more with activities but also at rest. Same character of pain, Denies any bladder bowel incontinence or perineal paresthesia. no fever or chills, no N/V. His pain was difficult to control in the ED and he was unable to get MRI properly. He states he is willing to get repeat MRI tomorrow as well as transfer to [place] if necessary. Regular bowel movements, last one this morning. Voiding without issues in the ED. He also went into Afib with RVR in the ED. he states he has been taking his xarelto without missing a dose. Admission Exam Per Admitting Provider General: Morbidly obese, lying in bed, uncomfortable because of pain, on room air HEENT: EOMI, JEFFRY, MMM Chest: Clear breath sounds bilaterally, no wheezes or crackles CVS: Irregular rate and rhythm, normal heart sounds, no murmur Abdomen: Soft, non tender, not distended, normal bowel sounds Neuro: Awake, alert, oriented, conversing well, non focal Extremities: No cyanosis, clubbing or edema. Strength and sensation intact. Principal Diagnosis Worsening discitis with recent enterococcal bacteremia, Afib with RVR, Discharge Exam General: Morbidly obese, lying in bed, not in acute distress, on room air HEENT: EOMI, JEFFRY, MMM Chest: Clear breath sounds anteriorly no wheezes or crackles CVS: Irregular, normal heart sounds, no murmur Abdomen: Soft, non tender, not distended, normal bowel sounds Neuro: Awake, alert, oriented, conversing well, non focal Extremities: No cyanosis, clubbing or edema. Strength and sensation intact. Discharge Data Allergies Allergy/AdvReac Type Severity Reaction Status Date / Time No Known Allergies Allergy ` Verified 09/28/21 18:15 Consultations 09/28/21 17:26 ED Decision to Admit Stat 09/28/21 18:03 Consult Infectious Diseases Routine 09/29/21 08:00 Consult Orthopedic Surgery Routine Ordered Studies 09/28/21 09:29 MR lumbar spine wo con Stat 09/28/21 18:03 MR lumbar spine wo/w con Routine Hospital Course (1) Discitis: (2) Osteomyelitis: (3) Atrial fibrillation with RVR: (4) Depression: Worsening discitis and suspected epidural abscess (recent enterococcal bacteremia and discitis/abscess on iv ampicillin triaged for 6 weeks, no IE in TTE)- No cauda equina symptoms or red flag signs. MRI L spine 09/12 1. Increased fluid signal within the L2-L3 disc which is new since MRI of July 02, 2019. Although this could be degenerative, the findings raise the possibility of discitis. Small T2 hyperintense abnormalities along the posterior aspect of the disc favor disc protrusions. Although less likely, tiny epidural abscesses cannot be completely excluded. Therefore, short-term follow-up MRI of the lumbar spine with and without contrast is recommended in several days. Moderate central canal stenosis at this level. Bilateral psoas and posterior paraspinous musculature edema. No paraspinal fluid collection on unenhanced exam. 2. Exam significantly compromised by artifact due to diminished [id number]-[id number] ratio. 3. Moderate central canal stenosis at L2-L3 and L4-L5. Moderate to severe multilevel neural foraminal stenosis, as described above. MRI L spine 09/28 1. The exam is markedly motion degraded and nearly nondiagnostic secondary to patient motion with decreased gqtzrw-[id number] ratio. 2. There is progressively worsened fluid signal within the L2-L3 disc space with associated progressive bone marrow and adjacent soft tissue edema. Findings are suggestive of acute discitis/osteomyelitis. 3. Evaluation for an epidural abscess is limited secondary to the aforementioned motion artifact. - MRI was broken during his test yesterday and unable to repair yet, Unable to get repeat MRI. - Seen by Dr Goff- recommended transferring to tertiary center as he has failed on IV ABx and with the limited resources as well his morbid obesity. - Spoke with Dr Branch regarding transfer to [place] who accepted the transfer for further work up including repeat MRI w w/o contrast and IR evaluation - Patient has been on ampicillin until 09/27 and on zosyn since 09/28. received a dose of daptomycin in ED 09/28 - Blood clx 09/12 and 09/13 with enterococcus fecalis and blood clx 09/14 and 09/28 negative. WBC normal, inflammatory markers improving. No fever Paroxysmal Afib with RVR - now rate controlled, on cardizem drip. - On toprol and po cardizem along with cardizem drip. Wean off cardizem drip as tolerated. - Xarelto on hold and on heparin drip for anticoagulation as he is a potential transfer to tertiary center given his worsening discitis on imaging. - Last dose of xarelto on 09/27 evening Hypokalemia- repleted, recheck in am GERD- continue PPI Morbid obesity- BMI 82. Weight loss recommended HTN- on cardizem, toprol. Hypothyroidism- continue synthroid Code status- Full code Medications Administered Current Inpatient Medications Acetaminophen (Acetaminophen 325 Mg Tab) 650 mg PO Q4 PRN PRN Reason: mild pain Stop: 10/28/21 18:02 Last Admin: 09/29/21 00:33 Dose: 650 mg Documented by: Cyclobenzaprine HCl (Cyclobenzaprine Hcl 10 Mg Tab) 10 mg PO TID PRN PRN Reason: spasm Stop: 10/28/21 19:44 Diltiazem HCl (Diltiazem Hcl 120 Mg Er Cap) 240 mg PO QAM [facility] Stop: 10/29/21 08:59 Last Admin: 09/29/21 09:23 Dose: 240 mg Documented by: Docusate Sodium (Docusate Sodium 100 Mg Cap) 100 mg PO BID [facility] Stop: 10/28/21 20:59 Last Admin: 09/29/21 09:08 Dose: Not Given Documented by: Gabapentin (Gabapentin 600 Mg Tab) 600 mg PO TID [facility] Stop: 10/28/21 20:59 Last Admin: 09/29/21 09:21 Dose: 600 mg Documented by: Heparin Sodium (Beef Lung) (Heparin 10 Unit/Ml 5 Ml Flush) 5 ml FLUSH PRN PRN PRN Reason: Flush Stop: 10/29/21 02:41 Hydromorphone HCl (Hydromorphone Inj 1 Mg/Ml Syringe) 1 mg IV Q3H PRN PRN Reason: severe pain if unable for po Stop: 10/12/21 19:44 Diltiazem HCl 125 mg/ Dextrose 125 mls @ 15 mls/hr IV .Q8H20M [facility]; Protocol Stop: 10/28/21 13:44 Last Admin: 09/29/21 08:38 Dose: 15 mg/hr, 15 mls/hr Documented by: Heparin Sodium/Dextrose (Heparin Sodium/Dextrose) 25,000 units in 500 mls @ 25 mls/hr IV .Q20H [facility]; Protocol Stop: 10/28/21 19:44 Last Titration: 09/29/21 07:17 Dose: 1,250 units/hr, 25 mls/hr Documented by: Piperacillin Sod/Tazobactam (Sod 4.5 gm/ Dextrose) 120 mls @ 30 mls/hr IV Q8H [facility]; Protocol Stop: 11/10/21 00:00 Last Admin: 09/29/21 09:20 Dose: 30 mls/hr Documented by: Ketorolac Tromethamine (Ketorolac 30 Mg/Ml Vial) 30 mg IV Q6H PRN PRN Reason: Pain Stop: 10/03/21 19:44 Last Admin: 09/29/21 09:30 Dose: 30 mg Documented by: Levothyroxine Sodium (Levothyroxine Sodium 125 Mcg Tablet) 125 mcg PO DAILYBB [facility] Stop: 10/29/21 06:29 Last Admin: 09/29/21 06:11 Dose: 125 mcg Documented by: Lidocaine (Lidocaine 5% 1 Patch) 1 patch TD DAILY@1999 [facility] Stop: 10/28/21 19:59 Last Admin: 09/28/21 22:03 Dose: 1 patch Documented by: Metoprolol Succinate (Metoprolol Succ 50mg Ext Rel Tab) 100 mg PO BID [facility] Stop: 10/28/21 20:59 Last Admin: 09/29/21 09:22 Dose: 100 mg Documented by: Miscellaneous (Remove Lidoderm Patch) 1 ea N/A DAILY@0800 [facility] Stop: 10/29/21 07:59 Last Admin: 09/29/21 09:21 Dose: Not Given Documented by: Miscellaneous Information (Piperacill/Tazobac Consult Active) 1 ea N/A UD PRN PRN Reason: Consult Stop: 10/28/21 19:44 Oxycodone HCl (Oxycodone Hcl Ir 5 Mg Tab (Immediate Release)) 10 mg PO Q4H PRN PRN Reason: pain Stop: 10/12/21 19:44 Last Admin: 09/29/21 08:00 Dose: 10 mg Documented by: Pantoprazole Sodium (Pantoprazole 40 Mg Tab) 40 mg PO DAILY PRN PRN Reason: Gi Upset Stop: 10/28/21 19:44 Polyethylene Glycol (Polyethylene (Miralax) 17 Gm Pack) 17 gm PO DAILY PRN PRN Reason: Constipation Stop: 10/28/21 19:44 Potassium Chloride (Potassium Chloride Crtab 20 Meq Tabcr) 40 meq PO DAILY [facility] Stop: 10/01/21 08:59 Last Admin: 09/29/21 09:21 Dose: 40 meq Documented by: Trazodone HCl (Trazodone Hcl 50 Mg Tab) 150 mg PO QPM PRN PRN Reason: Sleep Stop: 10/28/21 19:44 Total Time Total Time Spent Total Time Spent (In Minutes): 50 Discharge Plan Discharge Items Patient Disposition: Transfer Acute Care Hospital Reason For Visit: WORSENING BACK PAIN Discharge Diagnosis: Worsening discitis, recent enterococcal bacteremia on IV ampicillin Activity: Per Instructions section Non-emergency contact: Primary Care Provider Call non-emergency contact if: you have any medication questions and your symptoms worsen Follow-up/Referrals: Sandi Roman [Primary Care Provider] - Diet: Regular Addtl Attending Provider Instructions: You are having worsening back pain while on antibiotics and the MRI back although poor quality shows worsening infection of the spine. We can not get a repeat MRI here as it is broken. We do not have IR services here. You are being transferred to [facility] for further work up and treatment Following are the list of medications being administered as inpatient and recommended to continue. Current Inpatient Medications Acetaminophen (Acetaminophen 325 Mg Tab) 650 mg PO Q4 PRN PRN Reason: mild pain Stop: 10/28/21 18:02 Last Admin: 09/29/21 00:33 Dose: 650 mg Documented by: Cyclobenzaprine HCl (Cyclobenzaprine Hcl 10 Mg Tab) 10 mg PO TID PRN PRN Reason: spasm Stop: 10/28/21 19:44 Diltiazem HCl (Diltiazem Hcl 120 Mg Er Cap) 240 mg PO QAM [facility] Stop: 10/29/21 08:59 Last Admin: 09/29/21 09:23 Dose: 240 mg Documented by: Docusate Sodium (Docusate Sodium 100 Mg Cap) 100 mg PO BID [facility] Stop: 10/28/21 20:59 Last Admin: 09/29/21 09:08 Dose: Not Given Documented by: Gabapentin (Gabapentin 600 Mg Tab) 600 mg PO TID [facility] Stop: 10/28/21 20:59 Last Admin: 09/29/21 09:21 Dose: 600 mg Documented by: Heparin Sodium (Beef Lung) (Heparin 10 Unit/Ml 5 Ml Flush) 5 ml FLUSH PRN PRN PRN Reason: Flush Stop: 10/29/21 02:41 Hydromorphone HCl (Hydromorphone Inj 1 Mg/Ml Syringe) 1 mg IV Q3H PRN PRN Reason: severe pain if unable for po Stop: 10/12/21 19:44 Diltiazem HCl 125 mg/ Dextrose 125 mls @ 15 mls/hr IV .Q8H20M [facility]; Protocol Stop: 10/28/21 13:44 Last Admin: 09/29/21 08:38 Dose: 15 mg/hr, 15 mls/hr Documented by: Heparin Sodium/Dextrose (Heparin Sodium/Dextrose) 25,000 units in 500 mls @ 25 mls/hr IV .Q20H [facility]; Protocol Stop: 10/28/21 19:44 Last Titration: 09/29/21 07:17 Dose: 1,250 units/hr, 25 mls/hr Documented by: Piperacillin Sod/Tazobactam (Sod 4.5 gm/ Dextrose) 120 mls @ 30 mls/hr IV Q8H [facility]; Protocol Stop: 11/10/21 00:00 Last Admin: 09/29/21 09:20 Dose: 30 mls/hr Documented by: Ketorolac Tromethamine (Ketorolac 30 Mg/Ml Vial) 30 mg IV Q6H PRN PRN Reason: Pain Stop: 10/03/21 19:44 Last Admin: 09/29/21 09:30 Dose: 30 mg Documented by: Levothyroxine Sodium (Levothyroxine Sodium 125 Mcg Tablet) 125 mcg PO DAILYBB [facility] Stop: 10/29/21 06:29 Last Admin: 09/29/21 06:11 Dose: 125 mcg Documented by: Lidocaine (Lidocaine 5% 1 Patch) 1 patch TD DAILY@1999 [facility] Stop: 10/28/21 19:59 Last Admin: 09/28/21 22:03 Dose: 1 patch Documented by: Metoprolol Succinate (Metoprolol Succ 50mg Ext Rel Tab) 100 mg PO BID [facility] Stop: 10/28/21 20:59 Last Admin: 09/29/21 09:22 Dose: 100 mg Documented by: Miscellaneous (Remove Lidoderm Patch) 1 ea N/A DAILY@0800 [facility] Stop: 10/29/21 07:59 Last Admin: 09/29/21 09:21 Dose: Not Given Documented by: Miscellaneous Information (Piperacill/Tazobac Consult Active) 1 ea N/A UD PRN PRN Reason: Consult Stop: 10/28/21 19:44 Oxycodone HCl (Oxycodone Hcl Ir 5 Mg Tab (Immediate Release)) 10 mg PO Q4H PRN PRN Reason: pain Stop: 10/12/21 19:44 Last Admin: 09/29/21 08:00 Dose: 10 mg Documented by: Pantoprazole Sodium (Pantoprazole 40 Mg Tab) 40 mg PO DAILY PRN PRN Reason: Gi Upset Stop: 10/28/21 19:44 Polyethylene Glycol (Polyethylene (Miralax) 17 Gm Pack) 17 gm PO DAILY PRN PRN Reason: Constipation Stop: 10/28/21 19:44 Potassium Chloride (Potassium Chloride Crtab 20 Meq Tabcr) 40 meq PO DAILY [facility] Stop: 10/01/21 08:59 Last Admin: 09/29/21 09:21 Dose: 40 meq Documented by: Trazodone HCl (Trazodone Hcl 50 Mg Tab) 150 mg PO QPM PRN PRN Reason: Sleep Stop: 10/28/21 19:44 Pending Studies at Discharge: No Stand-Alone Forms: My [facility] Skilled Items Patient informed of condition?: Yes DNR: No Discharge Level of Care: Other Communicable Disease: No Discharge Prognosis: Stable Lines: PICC Urinary Catheter: No Medications and DC Order Prescriptions: Continued potassium chloride [Klor-Con] 20 mEq packet 20 meq PO HS RF: 0 furosemide [Lasix] 40 mg tablet 40 mg PO QAM PRN (Reason: Edema) RF: 0 ferrous sulfate [iron] 325 mg (65 mg iron) Tablet 325 mg PO QAM RF: 0 trazodone 50 mg Tablet 150 mg PO QPM PRN (Reason: Sleep) RF: 0 metoprolol succinate 100 mg Tablet Extended Release 24 Hr 100 mg PO BID RF: 0 pantoprazole 40 mg Tablet,Delayed Release (Dr/Ec) 40 mg PO DAILY PRN (Reason: Gi Upset) RF: 0 ergocalciferol (vitamin D2) [Vitamin D2] 50,000 unit Capsule 50,000 unit PO WK RF: 0 diltiazem HCl 240 mg Tablet Extended Release 24 Hr 240 mg PO QAM RF: 0 diclofenac sodium 1 % Gel 2 g TOPICAL QID PRN (Reason: Pain) RF: 0 Xarelto 20 mg Tablet 20 mg PO PM RF: 0 magnesium oxide 400 mg magnesium Tablet 400 mg PO BID RF: 0 levothyroxine 125 mcg tablet 125 mcg PO DAILY RF: 0 cyclobenzaprine 10 mg Tablet 10 mg PO TID 30 Days Qty: 90 RF: 0 acetaminophen 325 mg Tablet 650 mg PO TID 30 Days Qty: 180 RF: 0 gabapentin 600 mg Tablet 600 mg PO TID 30 Days Qty: 90 RF: 0 naproxen sodium [Aleve] 220 mg Capsule 220 mg PO Q12H PRN (Reason: Pain) 14 Days Qty: 30 RF: 0 meloxicam 15 mg tablet 15 mg PO QAM RF: 0 ibuprofen 200 mg Tablet 200 mg PO Q6H PRN (Reason: Pain) RF: 0 escitalopram oxalate 20 mg Tablet 20 mg PO DAILY RF: 0 oxycodone 5 mg tablet 5 mg PO Q6H PRN (Reason: pain) RF: 0 Discharge Orders: Discharge Order (Routine); Ordered 09/29/21 Ordered By: Osmin Almonte Admission Data Admit Date/Time: 09/28/21 18:03 Attending Provider: Osmin Almonte Admit Provider: Osmin Almonte Primary Care Provider: Sandi Roman Other Providers: Bridger Graham ; Mansi Aguayo ; Wilman Paz I. ; Torsten Malloy II ; Estefanía Burkett ; Derrell Domingo ; Hilario Lozano ; Osmin Almonte ; Demetris Goff
[2021-09-29] MEDS ORDERED: COUGH DROP (SUGAR FREE) LOZ 24 LOZ/1 BOX BUCCAL ONE (16:20)
[2021-09-29] MEDS: HEPARIN SODIUM/DEXTROSE 25,000 UNITS/500 ML BAG IV SCH (16:57)
[2021-09-29 19:52] LABS: Partial Thromboplastin Ratio 1.6; Partial Thromboplastin Time 42.7 Seconds (21.0-31.0)
[2021-09-29] MEDS: LIDOCAINE 5% 1 PATCH TD SCH (20:24)
== END 2021-09-29 20:30 | disposition short-term general hospital (02) | DRG 551 ==
LOC: ED 09:07 → 2S 18:03

== ENCOUNTER 2021-12-25 09:13 | Inpatient (IN) ==
[2021-12-25] MEDS ORDERED: MECLIZINE HCL 25 MG TAB PO STA (10:26)
--- NOTE | 2021-12-25 10:37 | Emergency Department Note ---
History of Present Illness General Chief complaint: Illness Stated complaint: weakness Time Seen by Provider: 12/25/21 10:08 Source: patient History of Present Illness Provider complaint: Vertigo Onset (ago): hour(s) Location: head Pain Consistency: + constant Quality: + other (Feels like the room is spinning) Relieved By: + none Associated symptoms: + headaches (Mild); no chest pain, no cough, no fever/chills or no shortness of breath This is a 61-year-old male who presents with the acute onset of vertigo at approximately 5 AM this morning. He states that he was fine yesterday but when he woke up at 5 he had some vertigo. He went back to bed but then woke up again later at 6 and still had the vertigo. He states that it is worse when he tries to get up but is not affected by head movement. He describes it as the room spinning. He states he had a similar episode a month ago while he was in the hospital but does not recall having any sort of work-up for this. He did have an infection to his bone and an abscess in his back in September and was at [facility] to have it treated. He then was in a rehab hospital and discharged 2 weeks ago. He denies any fever, hearing loss, ringing in his ears, difficulty with swallowing, speaking or change in vision. He denies any new weakness in his arms or legs. He states that his legs are weak from his recent hospitalization. He denies any fever, cough or cold symptoms, chest discomfort, shortness of breath, abdominal pain, vomiting, diarrhea or urinary symptoms. Home Medications Medication Instructions Recorded Confirmed Type diclofenac sodium 1 % topical gel 2 g topical QID PRN Pain 11/24/18 12/25/21 History diltiazem HCl 240 mg 240 mg PO QAM 11/24/18 12/25/21 History tablet,extended release 24 hr ergocalciferol (vitamin D2) 1,250 50,000 unit PO WK 11/24/18 12/25/21 History mcg (50,000 unit) capsule (Vitamin D2) magnesium oxide 400 mg PO BID 11/24/18 12/25/21 History metoprolol succinate 100 mg 100 mg PO BID 11/24/18 12/25/21 History tablet,extended release 24 hr pantoprazole 40 mg tablet,delayed 40 mg PO DAILY PRN Gi Upset 11/24/18 12/25/21 History release rivaroxaban 20 mg tablet (Xarelto) 20 mg PO HS 11/24/18 12/25/21 History trazodone 50 mg tablet 150 mg PO QDD PRN Sleep 11/24/18 12/25/21 History ferrous sulfate 325 mg (65 mg 325 mg PO QAM 11/28/18 12/25/21 History iron) tablet (iron) furosemide 40 mg tablet (Lasix) 40 mg PO QAM edema 08/01/19 12/25/21 History potassium chloride 20 mEq oral 20 meq PO HS 08/01/19 12/25/21 History packet (Klor-Con) levothyroxine 125 mcg tablet 125 mcg PO DAILYBB 09/10/21 12/25/21 History oxycodone 5 mg tablet 5 mg PO Q6H PRN pain #8 tabs 09/10/21 09/12/21 Rx escitalopram oxalate 20 mg tablet 20 mg PO QAM 09/28/21 12/25/21 History meloxicam 15 mg tablet 15 mg PO QAM 09/28/21 12/25/21 History oxycodone 5 mg tablet 5 mg PO Q6H PRN pain 09/28/21 12/25/21 History amoxicillin 500 mg capsule 1,000 cap PO TID 12/25/21 12/25/21 History fluoxetine 10 mg capsule 10 cap PO QAM 12/25/21 12/25/21 History Allergies Allergy/AdvReac Type Severity Reaction Status Date / Time No Known Allergies Allergy ` Verified 09/28/21 18:15 Past Med/Surg History Medical History Chest pain Chronic anticoagulation Coronary artery disease "moderate disease per cardiac cath [facility] 2013; 50% LAD, 40% RCA" Depression Diabetes mellitus type 2, controlled History of colonic polyps History of urinary calculi "right ureteral stone 2015" Hx of sciatica Hypertension Hypothyroidism Insomnia Iron deficiency anemia "heme + stool 2015, subsequent EGD and colonoscopy neg except for polyp" Lumbar disc herniation Lumbar radiculopathy Morbid obesity Paroxysmal atrial fibrillation Ventricular septal defect Vitamin B12 deficiency Surgical History Status post cardiac catheterization "[place] 2013, 50% LAD, 40% RCA" Status post cystoscopy "with right ureteroscopy, laser lithotripsy, basket stone extraction" Status post gastric bypass for obesity Family History (Updated 12/25/21 @ 13:52 by Aracelis Mcdaniel PA-C) Other No pertinent family history Social History Smoking Status: Former smoker Hx Alcohol Use: Yes (occasional drink) Alcohol type: hard liquor Hx Substance Use: No Preferred Language: Belarusian Communication Ability: Effective Hearing Ability: Normal [employer] Required: No Beliefs That Will Affect Care: None marital status: single Current Living Situation: Alone Feels Safe at Home: Yes Assistive Devices: Walker Review of Systems See HPI for pertinent positives & negatives. and A total of 10 systems reviewed and were otherwise negative Physical Exam Vital Signs Vital Signs - 24 hr 12/25/21 09:23 12/25/21 09:23 12/25/21 10:04 Temperature 36.8 C Temperature Source Oral Oral Pulse Rate 93 H Pulse Rate [Right Finger] Respiratory Rate 21 Respiratory Effort / Characteristics Non-Labored Spontaneous Respiratory Depth Normal Respiratory Pattern Regular Blood Pressure 141/106 H Blood Pressure [Right Arm] Blood Pressure Mean 117 Blood Pressure Mean [Right Arm] Blood Pressure Position Sitting Pulse Oximetry 96 Oxygen Delivery Method Room Air Room Air Sepsis Recent Fever Within 48 Hours No Sepsis New/Unexplained Change in Mental Status No Sepsis Action Taken by Nursing No Action Required 12/25/21 11:32 12/25/21 13:25 Temperature Temperature Source Pulse Rate Pulse Rate [Right Finger] 82 84 Respiratory Rate 22 18 Respiratory Effort / Characteristics Non-Labored Respiratory Depth Normal Respiratory Pattern Blood Pressure Blood Pressure [Right Arm] 146/100 H Blood Pressure Mean Blood Pressure Mean [Right Arm] 115 Blood Pressure Position Pulse Oximetry 95 94 Oxygen Delivery Method Room Air Sepsis Recent Fever Within 48 Hours Sepsis New/Unexplained Change in Mental Status Sepsis Action Taken by Nursing Constitutional: Vital signs reviewed. Eyes: Pupils are equal round reactive to light. Conjunctiva are noninjected. No rotatory or vertical nystagmus. ENT: Pharynx is clear without erythema or exudate. Mucous membranes are moist. Neck supple without meningeal signs. Respiratory: Clear to auscultation bilaterally. Breath sounds are equal bilaterally. Cardiovascular: Regular rate and rhythm. No rubs or gallops. GI: Soft, nondistended and nontender. Bowel sounds are present. Musculoskeletal: No peripheral edema. No lower extremity tenderness. Integumentary: No cyanosis. or jaundice. Neurologic: The patient is awake and alert. Cranial nerves II-XII are intact. Motor is 5 out of 5 all extremities, although it is difficult to assess the strength in the proximal lower extremities. Sensation is intact to light touch all extremities. Normal speech. No pronator drift. No limb ataxia. No dysdiadochokinesis. Psychiatric: Normal affect. Not anxious appearing. Course Administered Medications Discontinued Medications Ioversol (Optiray 320 125ml) 120 ml IV ONCE ONE Stop: 12/25/21 11:07 Last Admin: 12/25/21 11:06 Dose: 120 ml Documented By: CHRYSTAL Meclizine HCl (Meclizine Hcl 25 Mg Tab) 25 mg PO NOW STA Stop: 12/25/21 10:27 Last Admin: 12/25/21 11:18 Dose: 25 mg Documented By: PALOMA Medical Decision Making Differential Diagnosis Benign paroxysmal positional vertigo, labyrinthitis, Mnire's disease, CVA, intracranial hemorrhage, metabolic derangement Medical Records Attestation: I reviewed the patient's medical records. I did perform a limited focused review of portions of the patient's old chart on the electronic medical record. The patient was admitted to [facility] in September of this year for osteomyelitis of the L2 vertebrae as well as an epidural abscess which was later drained by interventional radiology. He also developed a psoas abscess which was also drained. He was placed on IV antibiotics for 6 weeks via PICC line. Home Medications Current Medication List: was personally reviewed by me Laboratory Data Attestation: I reviewed the patient's lab results. Result diagrams: 12/25/21 10:31 12/25/21 10:31 Lab Results 12/25/21 12/25/21 12/25/21 Range/Units 10:31 10:31 10:31 WBC 6.36 (4.8-10.8) K/ul RBC 4.69 (4.63-6.08) M/uL Hgb 13.6 L (14.0-18.0) g/dl POC Hgb (14.0-18.0) g/dl Hct 43.2 (40.1-51.0) % POC Hct (42-52) % MCV 92.1 (80.0-100.0) fL MCH 29.0 (25.0-34.0) pg MCHC 31.5 L (32.0-36.0) g/dL RDW Std Deviation 55.2 H (36.4-46.3) fL RDW Coeff of Phu 16.4 H (11.5-14.5) % Plt Count 203 (130-400) K/uL MPV 8.0 L (9.4-12.4) fL Immature Gran % (Auto) 0.5 % Neut % (Auto) 73.8 % Lymph % (Auto) 15.6 % [place] % (Auto) 6.8 % Eos % (Auto) 2.5 % Baso % (Auto) 0.8 % Neut # (Auto) 4.70 (1.4-6.5) K/uL Lymph # (Auto) 0.99 L (1.2-3.4) K/uL [place] # (Auto) 0.43 (0.24-0.82) K/uL Eos # (Auto) 0.16 (0-0.50) K/uL Baso # (Auto) 0.05 (0-0.2) K/uL Immature Gran # (Auto) 0.03 H (0.00-0.02) K/uL PT 13.4 H (9.0-12.0) Seconds INR 1.3 H (0.9-1.1) APTT 40.4 H (21.0-31.0) Seconds PTT Ratio 1.5 POC Sodium (135-144) mmol/L Sodium (136-145) mmol/L POC Potassium (3.3-5.0) mmol/L Potassium (3.5-5.1) mmol/L POC Chloride (101-112) mmol/L Chloride (98-107) mmol/L Carbon Dioxide (21-32) mmol/L POC Total CO2 (24-31) mmol/L Anion Gap (3-11) POC Anion Gap (16-25) mmol/L POC BUN (7-18) mg/dl BUN (6-23) mg/dl Creatinine (0.6-1.4) mg/dl POC Creatinine (0.6-1.3) mg/dl Est Cr Clr Drug Dosing ml/min Est GFR ( Amer) ml/min Est GFR (Non-Af Amer) ml/min BUN/Creatinine Ratio (10-20) Glucose (70-99(Fasting)) mg/dl POC Glucose (other) (70-99) mg/dl Lactate (0.4-2.0) mmol/L Calcium (8.5-10.1) mg/dl POC Ioniz Calcium Sofie (1.12-1.32) mmol/l Magnesium (1.7-2.4) mg/dl Total Bilirubin (0.2-1.0) mg/dl AST (13-39) U/L ALT (7-52) U/L Alkaline Phosphatase (34-104) U/L Troponin I High Sens (0-20) pg/ml Total Protein (6.0-8.3) gm/dl Albumin (3.4-5.0) gm/dl Globulin (2.5-4.0) gm/dl Albumin/Globulin Ratio (0.9-2) SARS-CoV-2, RNA, NAAT (NEGATIVE) Blood Type O Positive Antibody Screen NEGATIVE 12/25/21 12/25/21 12/25/21 Range/Units 10:31 10:37 10:42 WBC (4.8-10.8) K/ul RBC (4.63-6.08) M/uL Hgb (14.0-18.0) g/dl POC Hgb 14.6 (14.0-18.0) g/dl Hct (40.1-51.0) % POC Hct 43 (42-52) % MCV (80.0-100.0) fL MCH (25.0-34.0) pg MCHC (32.0-36.0) g/dL RDW Std Deviation (36.4-46.3) fL RDW Coeff of Phu (11.5-14.5) % Plt Count (130-400) K/uL MPV (9.4-12.4) fL Immature Gran % (Auto) % Neut % (Auto) % Lymph % (Auto) % [place] % (Auto) % Eos % (Auto) % Baso % (Auto) % Neut # (Auto) (1.4-6.5) K/uL Lymph # (Auto) (1.2-3.4) K/uL [place] # (Auto) (0.24-0.82) K/uL Eos # (Auto) (0-0.50) K/uL Baso # (Auto) (0-0.2) K/uL Immature Gran # (Auto) (0.00-0.02) K/uL PT (9.0-12.0) Seconds INR (0.9-1.1) APTT (21.0-31.0) Seconds PTT Ratio POC Sodium 143 (135-144) mmol/L Sodium 142 (136-145) mmol/L POC Potassium 3.5 (3.3-5.0) mmol/L Potassium 3.6 (3.5-5.1) mmol/L POC Chloride 101 (101-112) mmol/L Chloride 106 (98-107) mmol/L Carbon Dioxide 30 (21-32) mmol/L POC Total CO2 29 (24-31) mmol/L Anion Gap 6 (3-11) POC Anion Gap 17.0 (16-25) mmol/L POC BUN 10 (7-18) mg/dl BUN 11 (6-23) mg/dl Creatinine 0.96 (0.6-1.4) mg/dl POC Creatinine 1.0 (0.6-1.3) mg/dl Est Cr Clr Drug Dosing 146.3 ml/min Est GFR ( Amer) 98.5 ml/min Est GFR (Non-Af Amer) 85.0 ml/min BUN/Creatinine Ratio 11.5 (10-20) Glucose 92 (70-99(Fasting)) mg/dl POC Glucose (other) 93 (70-99) mg/dl Lactate 0.8 (0.4-2.0) mmol/L Calcium 8.2 L (8.5-10.1) mg/dl POC Ioniz Calcium Sofie 1.14 (1.12-1.32) mmol/l Magnesium 1.9 (1.7-2.4) mg/dl Total Bilirubin 0.6 (0.2-1.0) mg/dl AST 14 (13-39) U/L ALT 11 (7-52) U/L Alkaline Phosphatase 162 H (34-104) U/L Troponin I High Sens 4.7 (0-20) pg/ml Total Protein 5.8 L (6.0-8.3) gm/dl Albumin 3.1 L (3.4-5.0) gm/dl Globulin 2.7 (2.5-4.0) gm/dl Albumin/Globulin Ratio 1.1 (0.9-2) SARS-CoV-2, RNA, NAAT (NEGATIVE) Blood Type Antibody Screen 12/25/21 Range/Units 12:15 WBC (4.8-10.8) K/ul RBC (4.63-6.08) M/uL Hgb (14.0-18.0) g/dl POC Hgb (14.0-18.0) g/dl Hct (40.1-51.0) % POC Hct (42-52) % MCV (80.0-100.0) fL MCH (25.0-34.0) pg MCHC (32.0-36.0) g/dL RDW Std Deviation (36.4-46.3) fL RDW Coeff of Phu (11.5-14.5) % Plt Count (130-400) K/uL MPV (9.4-12.4) fL Immature Gran % (Auto) % Neut % (Auto) % Lymph % (Auto) % [place] % (Auto) % Eos % (Auto) % Baso % (Auto) % Neut # (Auto) (1.4-6.5) K/uL Lymph # (Auto) (1.2-3.4) K/uL [place] # (Auto) (0.24-0.82) K/uL Eos # (Auto) (0-0.50) K/uL Baso # (Auto) (0-0.2) K/uL Immature Gran # (Auto) (0.00-0.02) K/uL PT (9.0-12.0) Seconds INR (0.9-1.1) APTT (21.0-31.0) Seconds PTT Ratio POC Sodium (135-144) mmol/L Sodium (136-145) mmol/L POC Potassium (3.3-5.0) mmol/L Potassium (3.5-5.1) mmol/L POC Chloride (101-112) mmol/L Chloride (98-107) mmol/L Carbon Dioxide (21-32) mmol/L POC Total CO2 (24-31) mmol/L Anion Gap (3-11) POC Anion Gap (16-25) mmol/L POC BUN (7-18) mg/dl BUN (6-23) mg/dl Creatinine (0.6-1.4) mg/dl POC Creatinine (0.6-1.3) mg/dl Est Cr Clr Drug Dosing ml/min Est GFR ( Amer) ml/min Est GFR (Non-Af Amer) ml/min BUN/Creatinine Ratio (10-20) Glucose (70-99(Fasting)) mg/dl POC Glucose (other) (70-99) mg/dl Lactate (0.4-2.0) mmol/L Calcium (8.5-10.1) mg/dl POC Ioniz Calcium Sofie (1.12-1.32) mmol/l Magnesium (1.7-2.4) mg/dl Total Bilirubin (0.2-1.0) mg/dl AST (13-39) U/L ALT (7-52) U/L Alkaline Phosphatase (34-104) U/L Troponin I High Sens (0-20) pg/ml Total Protein (6.0-8.3) gm/dl Albumin (3.4-5.0) gm/dl Globulin (2.5-4.0) gm/dl Albumin/Globulin Ratio (0.9-2) SARS-CoV-2, RNA, NAAT NEGATIVE (NEGATIVE) Blood Type Antibody Screen Imaging Data Radiologist's Impression: Head CT 12/25/21 10:[address] OF THE BRAIN; CT ANGIOGRAM OF THE BRAIN; CT ANGIOGRAM OF THE NECK CLINICAL HISTORY: Vertigo. COMPARISON STUDY: CT of the brain dated 10/30/2015. TECHNIQUE: Unenhanced axial CT scan of the brain is performed. Subsequently, following the IV administration of 120 of Optiray 320, CT angiogram of the head and neck was performed from the aortic arch to the vertex. Images are reviewed in the axial, sagittal, and coronal planes. 3-D MIPS images are created and assessed. IV contrast was administered without complication. All measurements were calculated based on NASCET criteria. A dose lowering technique was utilized adhering to the principles of ALARA. The examination is degraded by large body habitus, and by streak artifact from the shoulders abutting the CT gantry. The CT angiogram of the neck is significantly suboptimal due to poor contrast opacification of the arteries. CT DOSE: 1367.72 mGy.cm FINDINGS: Brain parenchyma: The brain parenchyma is normal in appearance. There is no hemorrhage, mass effect, or evidence of acute territorial ischemia by CT criteria. There is no evidence of enhancing mass lesion on the angiogram phase images. The ventricles, sulci, and cisterns are normal in configuration. Kelsey- white matter differentiation is preserved. No extra-axial fluid collection is seen. Thoracic aorta: Visualized portions of the thoracic aorta are normal in caliber. The aortic arch demonstrates standard 3-vessel anatomy. Right carotid arterial system: The right common carotid artery is patent, as are the right internal and external carotid arteries. Left carotid arterial system: The left common carotid artery is patent, as are the left internal and external carotid arteries. Vertebral arteries: The vertebral arteries are not well opacified and significantly obscured by streak artifact. These are not diagnostically assessed. Subclavian arteries: Patent bilaterally. Intracranial vasculature: There is mild atherosclerotic calcification of the cavernous carotid arteries. The internal carotid arteries are patent at the skull base, as are the anterior and middle cerebral arteries bilaterally. The vertebrobasilar system and posterior cerebral arteries are widely patent. The left vertebral artery is dominant. There is no aneurysm, high-grade stenosis, or focal vessel cut off seen throughout the intracranial circulation. Jugular veins: Not well opacified. Dural sinuses: Not well opacified. Lung apices: Partially visualized upper lobe lung parenchyma appears clear. Soft tissues: The visualized pharyngeal soft tissues are normal in appearance noting angiographic phase technique. The oropharyngeal airway appears widely patent. The salivary and thyroid glands are normal in appearance. No cervical lymphadenopathy is seen. Skeletal structures: The skeletal structures are heterogeneously osteopenic. The calvarium appears intact. The cervical spine is maintained noting multilevel spondylosis. No lytic or blastic lesion is seen. Orbits: The bony orbits are intact. Orbital contents are normal as visualized. Sinuses and mastoids: Retention cysts in the left maxillary antrum measure up to 1.8 cm. The remaining paranasal sinuses are clear. The mastoid air cells are well pneumatized. IMPRESSION: 1. There is no hemorrhage, mass effect, or evidence of acute territorial ischemia by CT criteria. 2. Unremarkable CT angiogram of the brain. 3. The CT angiogram of the neck is significantly suboptimal due to poor arterial opacification. There is also severe streak artifact. 4. The carotid arteries in the neck appear patent. 5. The vertebral arteries in the neck are not diagnostically evaluated. 6. Additional findings as above. ACT 112: Negative or not required by law. Electronically signed by: Kameron Diaz M.D. 12/25/2021 11:34 AM Head CTA 12/25/21 10:[address] OF THE BRAIN; CT ANGIOGRAM OF THE BRAIN; CT ANGIOGRAM OF THE NECK CLINICAL HISTORY: Vertigo. COMPARISON STUDY: CT of the brain dated 10/30/2015. TECHNIQUE: Unenhanced axial CT scan of the brain is performed. Subsequently, following the IV administration of 120 of Optiray 320, CT angiogram of the head and neck was performed from the aortic arch to the vertex. Images are reviewed in the axial, sagittal, and coronal planes. 3-D MIPS images are created and assessed. IV contrast was administered without complication. All measurements were calculated based on NASCET criteria. A dose lowering technique was utilized adhering to the principles of ALARA. The examination is degraded by large body habitus, and by streak artifact from the shoulders abutting the CT gantry. The CT angiogram of the neck is significantly suboptimal due to poor contrast opacification of the arteries. CT DOSE: 1367.72 mGy.cm FINDINGS: Brain parenchyma: The brain parenchyma is normal in appearance. There is no hemorrhage, mass effect, or evidence of acute territorial ischemia by CT criteria. There is no evidence of enhancing mass lesion on the angiogram phase images. The ventricles, sulci, and cisterns are normal in configuration. Kelsey- white matter differentiation is preserved. No extra-axial fluid collection is seen. Thoracic aorta: Visualized portions of the thoracic aorta are normal in caliber. The aortic arch demonstrates standard 3-vessel anatomy. Right carotid arterial system: The right common carotid artery is patent, as are the right internal and external carotid arteries. Left carotid arterial system: The left common carotid artery is patent, as are the left internal and external carotid arteries. Vertebral arteries: The vertebral arteries are not well opacified and s ignificantly obscured by streak artifact. These are not diagnostically assessed. Subclavian arteries: Patent bilaterally. Intracranial vasculature: There is mild atherosclerotic calcification of the cavernous carotid arteries. The internal carotid arteries are patent at the skull base, as are the anterior and middle cerebral arteries bilaterally. The vertebrobasilar system and posterior cerebral arteries are widely patent. The left vertebral artery is dominant. There is no aneurysm, high-grade stenosis, or focal vessel cut off seen throughout the intracranial circulation. Jugular veins: Not well opacified. Dural sinuses: Not well opacified. Lung apices: Partially visualized upper lobe lung parenchyma appears clear. Soft tissues: The visualized pharyngeal soft tissues are normal in appearance noting angiographic phase technique. The oropharyngeal airway appears widely patent. The salivary and thyroid glands are normal in appearance. No cervical lymphadenopathy is seen. Skeletal structures: The skeletal structures are heterogeneously osteopenic. The calvarium appears intact. The cervical spine is maintained noting multilevel spondylosis. No lytic or blastic lesion is seen. Orbits: The bony orbits are intact. Orbital contents are normal as visualized. Sinuses and mastoids: Retention cysts in the left maxillary antrum measure up to 1.8 cm. The remaining paranasal sinuses are clear. The mastoid air cells are well pneumatized. IMPRESSION: 1. There is no hemorrhage, mass effect, or evidence of acute territorial ischemia by CT criteria. 2. Unremarkable CT angiogram of the brain. 3. The CT angiogram of the neck is significantly suboptimal due to poor arterial opacification. There is also severe streak artifact. 4. The carotid arteries in the neck appear patent. 5. The vertebral arteries in the neck are not diagnostically evaluated. 6. Additional findings as above. ACT 112: Negative or not required by law. Electronically signed by: Kameron Diaz M.D. 12/25/2021 11:34 AM Neck CTA 12/25/21 10:[address] OF THE BRAIN; CT ANGIOGRAM OF THE BRAIN; CT ANGIOGRAM OF THE NECK CLINICAL HISTORY: Vertigo. COMPARISON STUDY: CT of the brain dated 10/30/2015. TECHNIQUE: Unenhanced axial CT scan of the brain is performed. Subsequently, following the IV administration of 120 of Optiray 320, CT angiogram of the head and neck was performed from the aortic arch to the vertex. Images are reviewed in the axial, sagittal, and coronal planes. 3-D MIPS images are created and assessed. IV contrast was administered without complication. All measurements were calculated based on NASCET criteria. A dose lowering technique was utilized adhering to the principles of ALARA. The examination is degraded by large body habitus, and by streak artifact from the shoulders abutting the CT gantry. The CT angiogram of the neck is significantly suboptimal due to poor contrast opacification of the arteries. CT DOSE: 1367.72 mGy.cm FINDINGS: Brain parenchyma: The brain parenchyma is normal in appearance. There is no hemorrhage, mass effect, or evidence of acute territorial ischemia by CT criteria. There is no evidence of enhancing mass lesion on the angiogram phase images. The ventricles, sulci, and cisterns are normal in configuration. Kelsey- white matter differentiation is preserved. No extra-axial fluid collection is seen. Thoracic aorta: Visualized portions of the thoracic aorta are normal in caliber. The aortic arch demonstrates standard 3-vessel anatomy. Right carotid arterial system: The right common carotid artery is patent, as are the right internal and external carotid arteries. Left carotid arterial system: The left common carotid artery is patent, as are the left internal and external carotid arteries. Vertebral arteries: The vertebral arteries are not well opacified and significantly obscured by streak artifact. These are not diagnostically assess ed. Subclavian arteries: Patent bilaterally. Intracranial vasculature: There is mild atherosclerotic calcification of the cavernous carotid arteries. The internal carotid arteries are patent at the skull base, as are the anterior and middle cerebral arteries bilaterally. The vertebrobasilar system and posterior cerebral arteries are widely patent. The left vertebral artery is dominant. There is no aneurysm, high-grade stenosis, or focal vessel cut off seen throughout the intracranial circulation. Jugular veins: Not well opacified. Dural sinuses: Not well opacified. Lung apices: Partially visualized upper lobe lung parenchyma appears clear. Soft tissues: The visualized pharyngeal soft tissues are normal in appearance noting angiographic phase technique. The oropharyngeal airway appears widely patent. The salivary and thyroid glands are normal in appearance. No cervical lymphadenopathy is seen. Skeletal structures: The skeletal structures are heterogeneously osteopenic. The calvarium appears intact. The cervical spine is maintained noting multilevel spondylosis. No lytic or blastic lesion is seen. Orbits: The bony orbits are intact. Orbital contents are normal as visualized. Sinuses and mastoids: Retention cysts in the left maxillary antrum measure up to 1.8 cm. The remaining paranasal sinuses are clear. The mastoid air cells are well pneumatized. IMPRESSION: 1. There is no hemorrhage, mass effect, or evidence of acute territorial ischemia by CT criteria. 2. Unremarkable CT angiogram of the brain. 3. The CT angiogram of the neck is significantly suboptimal due to poor arterial opacification. There is also severe streak artifact. 4. The carotid arteries in the neck appear patent. 5. The vertebral arteries in the neck are not diagnostically evaluated. 6. Additional findings as above. ACT 112: Negative or not required by law. Electronically signed by: Kameron Diaz M.D. 12/25/2021 11:34 AM ECG Data Attestation: I personally reviewed and interpreted this ECG as follows: Indication: + other (Vertigo) Rate (beats per minute): 91 Rhythm: + atrial flutter ECG Intervals/blocks: + Right Bundle branch block ECG Rio: + Normal ECG ST segments: no ST elevation ECG Findings: no PVCs Comparison ECG Date: from (September 12, 2021) Change: no significant change MDM Narrative I did evaluate the patient as noted above. The patient is presenting with acute vertigo starting at 5 AM this morning upon waking. He states he was fine last night when he went to bed. He states is worse when he tries to get up and has some difficulty walking because of it but when he turns his head he does not have any vertigo. He is outside the window of IV tPA as he woke up with symptoms at 5 AM. I did, however, call a stroke alert. IV access was established. I did treat him with Antivert. I did place an order for continuous cardiac monitoring. The monitor showed atrial flutter at a rate of 88 bpm. I did order and personally review the patient's 12-lead EKG as described above. He has no acute ischemic changes. I did order and personally reviewed the images of the patient's chest x-ray as described above. I did order a urine analysis. I did order and review the patient's blood work as noted in the electronic medical record. CBC shows a mild anemia with a hemoglobin 13.6. There is no leukocytosis. INR is 1.3. CMP is unremarkable other than a calcium of 8.2 and an alk phos of 162. High sensitivity troponin is negative. COVID screening is negative. I did order a CT of the head and CT angiogram of the head and neck. I did review the images myself as well as the radiology report as described above. The CT angiogram of the neck is nondiagnostic. The CT angiogram of the head is unremarkable and CT of the head shows no stroke or intracranial hemorrhage. I did reassess the patient. He has minimal relief of his symptoms. I did recommend hospitalization for further care and evaluation including MRI of the brain. He was agreeable with this. I did discuss case with the hospitalist and case therapist Impression & Plan Vertigo, Hypocalcemia, Anticoagulated Discharge Plan Visit Data Chief Complaint: Illness Stated Complaint: weakness ED Provider: Jori Nuñez Discharge Problem: Vertigo, Hypocalcemia, Anticoagulated Patient Disposition: Being Evaluated by Hospitalist Forms Stand Alone Forms: My [facility] Prescriptions Prescriptions: No Action potassium chloride [Klor-Con] 20 mEq packet 20 meq PO HS Rx Instructions: take at bedtime furosemide [Lasix] 40 mg tablet 40 mg PO QAM ferrous sulfate [iron] 325 mg (65 mg iron) Tablet 325 mg PO QAM trazodone 50 mg Tablet 150 mg PO QDD PRN (Reason: Sleep) Rx Instructions: take at suppertime as needed metoprolol succinate 100 mg Tablet Extended Release 24 Hr 100 mg PO BID pantoprazole 40 mg Tablet,Delayed Release (Dr/Ec) 40 mg PO DAILY PRN (Reason: Gi Upset) ergocalciferol (vitamin D2) [Vitamin D2] 50,000 unit Capsule 50,000 unit PO WK Rx Instructions: TAKE ON WEDNESDAY diltiazem HCl 240 mg Tablet Extended Release 24 Hr 240 mg PO QAM diclofenac sodium 1 % Gel 2 g TOPICAL QID PRN (Reason: Pain) Xarelto 20 mg Tablet 20 mg PO HS magnesium oxide 400 mg magnesium Tablet 400 mg PO BID levothyroxine 125 mcg tablet 125 mcg PO DAILYBB meloxicam 15 mg tablet 15 mg PO QAM escitalopram oxalate 20 mg Tablet 20 mg PO QAM oxycodone 5 mg tablet 5 mg PO Q6H PRN (Reason: pain) amoxicillin 500 mg capsule 1,000 cap PO TID fluoxetine 10 mg capsule 10 cap PO QAM Referrals Referrals: Sandi Roman [Primary Care Provider] -
[2021-12-25 10:47] LABS: Basophils # (auto) 0.05 K/uL (0-0.2); Basophils % (auto) 0.8 %; Eosinophils # (auto) 0.16 K/uL (0-0.50); Eosinophils % (auto) 2.5 %; Hematocrit (blood only) 43.2 % (40.1-51.0); Hemoglobin 13.6 g/dl (14.0-18.0); Immature Granulocytes # (auto) 0.03 K/uL (0.00-0.02); Immature Granulocytes % (auto) 0.5 %; Lymphocytes # (auto) 0.99 K/uL (1.2-3.4); Lymphocytes % (auto) 15.6 %; Mean Corpuscular Hgb Conc 31.5 g/dL (32.0-36.0); Mean Corpuscular Volume 92.1 fL (80.0-100.0); Monocytes # (auto) 0.43 K/uL (0.24-0.82); Monocytes % (auto) 6.8 %; Neutrophils % (auto) 73.8 %; Platelet Count 203 K/uL (130-400); RDW Coefficient of Variation 16.4 % (11.5-14.5); RDW Standard Deviation 55.2 fL (36.4-46.3); Red Blood Count 4.69 M/uL (4.63-6.08); White Blood Count 6.36 K/ul (4.8-10.8)
[2021-12-25 10:49] LABS: iSTAT Hemoglobin 14.6 g/dl (14.0-18.0); iSTAT Ionized Calcium 1.14 mmol/l (1.12-1.32); iSTAT Potassium 3.5 mmol/L (3.3-5.0)
[2021-12-25 10:58] LABS: INR 1.3 (0.9-1.1); Partial Thromboplastin Ratio 1.5; Partial Thromboplastin Time 40.4 Seconds (21.0-31.0); Prothrombin Time 13.4 Seconds (9.0-12.0)
[2021-12-25] MEDS ORDERED: OPTIRAY 320 125ml IV ONE (11:06)
[2021-12-25 11:11] LABS: Albumin Globulin Ratio 1.1 (0.9-2); Albumin Level 3.1 gm/dl (3.4-5.0); BUN Creatinine Ratio 11.5 (10-20); Bilirubin,Total 0.6 mg/dl (0.2-1.0); Calcium 8.2 mg/dl (8.5-10.1); Creatinine Clr Calc Pharmacy 146.3 ml/min; Est GFR (African American) 98.5 ml/min; Globulin 2.7 gm/dl (2.5-4.0); Magnesium 1.9 mg/dl (1.7-2.4); Potassium 3.6 mmol/L (3.5-5.1); Total Protein 5.8 gm/dl (6.0-8.3)
[2021-12-25 11:12] LABS: Troponin I High Sensitivity 4.7 pg/ml (0-20)
--- NOTE | 2021-12-25 11:36 | CT Scan Report ---
UNENHANCED CT OF THE BRAIN; CT ANGIOGRAM OF THE BRAIN; CT ANGIOGRAM OF THE NECK CLINICAL HISTORY: Vertigo. COMPARISON STUDY: CT of the brain dated 10/30/2015. TECHNIQUE: Unenhanced axial CT scan of the brain is performed. Subsequently, following the IV adminis tration of 120 of Optiray 320, CT angiogram of the head and neck was performed from the aortic arch t o the vertex. Images are reviewed in the axial, sagittal, and coronal planes. 3-D MIPS images are cre ated and assessed. IV contrast was administered without complication. All measurements were calculate d based on NASCET criteria. A dose lowering technique was utilized adhering to the principles of ALA RA. The examination is degraded by large body habitus, and by streak artifact from the shoulders abut ting the CT gantry. The CT angiogram of the neck is significantly suboptimal due to poor contrast opa cification of the arteries. CT DOSE: 1367.72 mGy.cm FINDINGS: Brain parenchyma: The brain parenchyma is normal in appearance. There is no hemorrhage, mass effect, or evidence of acute territorial ischemia by CT criteria. There is no evidence of enhancing mass lesi on on the angiogram phase images. The ventricles, sulci, and cisterns are normal in configuration. Gr ay-white matter differentiation is preserved. No extra-axial fluid collection is seen. Thoracic aorta: Visualized portions of the thoracic aorta are normal in caliber. The aortic arch demo nstrates standard 3-vessel anatomy. Right carotid arterial system: The right common carotid artery is patent, as are the right internal a nd external carotid arteries. Left carotid arterial system: The left common carotid artery is patent, as are the left internal and external carotid arteries. Vertebral arteries: The vertebral arteries are not well opacified and significantly obscured by strea k artifact. These are not diagnostically assessed. Subclavian arteries: Patent bilaterally. Intracranial vasculature: There is mild atherosclerotic calcification of the cavernous carotid arteri es. The internal carotid arteries are patent at the skull base, as are the anterior and middle cerebr al arteries bilaterally. The vertebrobasilar system and posterior cerebral arteries are widely patent . The left vertebral artery is dominant. There is no aneurysm, high-grade stenosis, or focal vessel c ut off seen throughout the intracranial circulation. Jugular veins: Not well opacified. Dural sinuses: Not well opacified. Lung apices: Partially visualized upper lobe lung parenchyma appears clear. Soft tissues: The visualized pharyngeal soft tissues are normal in appearance noting angiographic pha se technique. The oropharyngeal airway appears widely patent. The salivary and thyroid glands are nor mal in appearance. No cervical lymphadenopathy is seen. Skeletal structures: The skeletal structures are heterogeneously osteopenic. The calvarium appears in tact. The cervical spine is maintained noting multilevel spondylosis. No lytic or blastic lesion is s een. Orbits: The bony orbits are intact. Orbital contents are normal as visualized. Sinuses and mastoids: Retention cysts in the left maxillary antrum measure up to 1.8 cm. The remainin g paranasal sinuses are clear. The mastoid air cells are well pneumatized. IMPRESSION: 1. There is no hemorrhage, mass effect, or evidence of acute territorial ischemia by CT criteria. 2. Unremarkable CT angiogram of the brain. 3. The CT angiogram of the neck is significantly suboptimal due to poor arterial opacification. There is also severe streak artifact. 4. The carotid arteries in the neck appear patent. 5. The vertebral arteries in the neck are not diagnostically evaluated. 6. Additional findings as above. ACT 112: Negative or not required by law. Electronically signed by: Kameron Diaz M.D. 12/25/2021 11:34 AM
--- NOTE | 2021-12-25 12:35 | Electrocardiogram Report ---
Test Reason : Blood Pressure : / mmHG Vent. Rate : 091 BPM Atrial Rate : 074 BPM P-R Int : 000 ms QRS Dur : 146 ms QT Int : 400 ms P-R-T Axes : 000 083 041 degrees QTc Int : 492 ms Poor data quality, interpretation may be adversely affected Atrial fibrillation Right bundle branch block Abnormal ECG When compared with ECG of 12-SEP-2021 13:07, Nonspecific T wave abnormality has replaced inverted T waves in Inferior leads T wave inversion now evident in Anterior leads Confirmed by Stiven Salazar ([id number]) on 12/25/2021 12:35:03 PM Referred By: REFERRED SELF Confirmed By:Ron Salazar
--- NOTE | 2021-12-25 12:52 | History & Physical Report ---
Date of Service December 25, 2021 Assessment & Plan (1) Generalized weakness: (2) Headache: (3) Dizziness: Plan: - Admit to PCU for observation - Stroke order set completed, no indication for thrombolytic - CT head reviewed and is negative - MRI brain with and without contrast ordered with hx of epidural abscesses - pt has been off IV ampicillin for 2 weeeks and has been on amoxicillin PO in the interim per ID from [facility]. - BP is elevated at 146/100 - will await recs for BP - Neurology consulted - PT/OT consults placed (4) Epidural abscess: (5) Enterococcal bacteremia: Plan: - Hx of such originally diagnosed October 01. Was treated with IV ampiccilin. Bacteremia was comlicated by discitis and SEA. He was then admitted to [facility] and found to have multiple psoas abscesses. IR draiage was pursued and cultures were utinately negative. End of IV ampicillin was on 12/18/21. Since then he has been on Amoxicillin 1 g PO TID until instructed to discontinue per infectious diasease. Pt has been following with [facility] ID. Outpatient epic chart reviewed and last telephone encounter was on 12/16. (6) Morbid obesity: Plan: - BMI of of 69.7 - hx of gastric bypass surgery (7) Chronic atrial fibrillation: Plan: - Cont on xarelto - Obtain 2D echo - Currently rate controlled at bedside. DVT ppx: teds, scds, xarelto CODE: Full Code Dispo: From home, likely to remain in the hospital x 1-2 days History of Present Illness Chief Complaint: Dizziness Primary Care Provider: Sandi Roman This is a 61 yo M with PMHx of chronic atrial fibrillation, HTN, hypothyroidism, GERD, Morbid obesity with BMI 69.7, hx of gastric bypass ~5 years ago, who was recently hospitalized here at [facility] on September 12, 2021 for back pain and found to have enterococcal sepsis secondary to osteomyelitis and discitis involving L2-L3. There was a very small epidural abscess that was present at that time and he was sent home with PICC line on amipcillin IV. He retruned to the hospital on September 28, 2021 with markeldy worse back pain which radiated down both legs, and found to be in Afib with RVR. Afib was treated wi cardizem drip. Due to issues with the MRI machine at [facility] they were unable to immediately we evaluate the epidural abscess. On October 01 MRI noted that he had an epidural abscess interventional radiology performed biopsy and drainage on that study patient was also noted to have multiple small abscesses along the psoas muscle and on October 02 IR proceeded to drain the largest psoas abscess. He had again positive blood cultures for enterococci on October 03. He was referred to [facility] afterwards due to ambulatory dysfunction secondary to pain status post his epidural abscess drainage, as well as left knee and present a week prior to his original hospitalization and over that period of time had gotten particularly worse.He was discharged from [facility] on 11/19/2021. Today the patient reports that he has worsening dizziness and generalized weakness which started this morning around 5 am. Pt admits to having photosensitivity, and occipital headache worse on the left. It seemed to get better in the late morning, and now has come back. He rates it a 4/10. He denies phonophobia. Pt admits to having some heart fluttering, like he does when he's in afib, but denies and chest pain or shortness of breath. He states this is gone now. He has been sleeping in a recliner due to limited ability to get in and out of bed with the above and needing rehab still 3x per week as an outpatient. He required help by friends today to get him to the bathroom, and then was able to get himself up and walk out to the kitchen. He has had some intermittent nausea this morning, but at breakfast ate an sao tomean muffin thinking his sugar was possibly low (denies hx of diabetes), but this did not help. Currently he is living with his mother an father. He did take all his routinely scheduled medications today. Allergies Allergy/AdvReac Type Severity Reaction Status Date / Time No Known Allergies Allergy ` Verified 09/28/21 18:15 Home Medications Medication Instructions Recorded Confirmed Type diclofenac sodium 1 % topical gel 2 g topical QID PRN Pain 11/24/18 12/25/21 History diltiazem HCl 240 mg 240 mg PO QAM 11/24/18 12/25/21 History tablet,extended release 24 hr ergocalciferol (vitamin D2) 1,250 50,000 unit PO WK 11/24/18 12/25/21 History mcg (50,000 unit) capsule (Vitamin D2) magnesium oxide 400 mg PO BID 11/24/18 12/25/21 History metoprolol succinate 100 mg 100 mg PO BID 11/24/18 12/25/21 History tablet,extended release 24 hr pantoprazole 40 mg tablet,delayed 40 mg PO DAILY PRN Gi Upset 11/24/18 12/25/21 History release rivaroxaban 20 mg tablet (Xarelto) 20 mg PO HS 11/24/18 12/25/21 History trazodone 50 mg tablet 150 mg PO QDD PRN Sleep 11/24/18 12/25/21 History ferrous sulfate 325 mg (65 mg 325 mg PO QAM 11/28/18 12/25/21 History iron) tablet (iron) furosemide 40 mg tablet (Lasix) 40 mg PO QAM edema 08/01/19 12/25/21 History potassium chloride 20 mEq oral 20 meq PO HS 08/01/19 12/25/21 History packet (Klor-Con) levothyroxine 125 mcg tablet 125 mcg PO DAILYBB 09/10/21 12/25/21 History oxycodone 5 mg tablet 5 mg PO Q6H PRN pain #8 tabs 09/10/21 09/12/21 Rx escitalopram oxalate 20 mg tablet 20 mg PO QAM 09/28/21 12/25/21 History meloxicam 15 mg tablet 15 mg PO QAM 09/28/21 12/25/21 History oxycodone 5 mg tablet 5 mg PO Q6H PRN pain 09/28/21 12/25/21 History amoxicillin 500 mg capsule 1,000 cap PO TID 12/25/21 12/25/21 History fluoxetine 10 mg capsule 10 cap PO QAM 12/25/21 12/25/21 History Past Med/Surg History Medical History Chest pain Chronic anticoagulation Coronary artery disease "moderate disease per cardiac cath [facility] 2013; 50% LAD, 40% RCA" Depression Diabetes mellitus type 2, controlled History of colonic polyps History of urinary calculi "right ureteral stone 2015" Hx of sciatica Hypertension Hypothyroidism Insomnia Iron deficiency anemia "heme + stool 2015, subsequent EGD and colonoscopy neg except for polyp" Lumbar disc herniation Lumbar radiculopathy Morbid obesity Paroxysmal atrial fibrillation Ventricular septal defect Vitamin B12 deficiency Surgical History Status post cardiac catheterization "[id number], 50% LAD, 40% RCA" Status post cystoscopy "with right ureteroscopy, laser lithotripsy, basket stone extraction" Status post gastric bypass for obesity Family History (Updated 12/25/21 @ 13:52 by Aracelis Mcdaniel PA-C) Other No pertinent family history Social History Smoking Status: Former smoker Hx Alcohol Use: Yes (occasional drink) Alcohol type: hard liquor Hx Substance Use: No Preferred Language: Senegalese Communication Ability: Effective Hearing Ability: Normal Er Registrar Required: No Beliefs That Will Affect Care: None marital status: single Current Living Situation: Alone Feels Safe at Home: Yes Assistive Devices: Walker Review of Systems Review of Systems: Constitutional: No fever, sweats or chills Eyes: No diplopia, no worsening or blurred vision, + room is spinning, + photosensitivity ENT: normal hearing, no trouble swallowing Respiratory: No cough, sputum, dyspnea at rest or on exertion Cardiovascular: No chest pain, tightness , + palpitations Abdomen: No pain, nausea, vomiting, diarrhea or constipation, last Bm was this morning. Musculoskeletal: No joint pain, calf pain, swelling, last took lasix for edema over the weekend (4-5 days ago) Neurologic: + generalized weakness, no numbness/tingling, no balance problems Psychiatric: + anxiety or depression on lexapro and prozac Skin: No rash or itch Physical Exam Physical Exam: General: awake, alert, no apparent distress, + morbidly obese with BMI 69.7 Head: Normocephalic, atraumatic ENT: PERRL, EOMI, no pharyngeal exudate, mucous membranes moist Chest: Clear to auscultation, on room air, no adventitious breath sounds Cardiac: irregularly irregular, rate controlled with HR in the mid 80s, no murmur, no JVD, normal peripheral pulses, good capillary refill Abdominal: NABS x 4 quadrants, soft, nondistended, nontender to palpation, no rebound or guarding Extremities: Normal inspection, no peripheral edema or erythema, calfs nontender to palpation Psych: Normal mood and affect Neuro: AAO x 3, strength intact bilaterally and rated 5/5, no motor deficits, speech is clear, no peripheral sensory deficits Results & Data Results & Data ([facility]) Vital Signs (Past 12 Hours) Vital Signs Temp Pulse Pulse Resp BP BP Pulse Ox 12/25/21 11:32 82 22 146/100 H 95 12/25/21 10:04 12/25/21 09:23 36.8 C 93 H 21 141/106 H 96 O2 Del Method 12/25/21 11:32 12/25/21 10:04 Room Air 12/25/21 09:23 Room Air Laboratory Results 12/25/21 12:31 Aerobic Blood Culture - Pending Blood Anaerobic Blood Culture - Pending 12/25/21 10:36 Aerobic Blood Culture - Pending Blood Anaerobic Blood Culture - Pending 12/25/21 12/25/21 12/25/21 12:15 10:42 10:37 WBC RBC Hgb POC Hgb 14.6 Hct POC Hct 43 MCV MCH MCHC RDW Std Deviation RDW Coeff of Phu Plt Count MPV Immature Gran % (Auto) Neut % (Auto) Lymph % (Auto) [place] % (Auto) Eos % (Auto) Baso % (Auto) Neut # (Auto) Lymph # (Auto) [place] # (Auto) Eos # (Auto) Baso # (Auto) Immature Gran # (Auto) PT INR APTT PTT Ratio POC Sodium 143 Sodium POC Potassium 3.5 Potassium POC Chloride 101 Chloride Carbon Dioxide POC Total CO2 29 Anion Gap POC Anion Gap 17.0 POC BUN 10 BUN Creatinine POC Creatinine 1.0 Est Cr Clr Drug Dosing Est GFR ( Amer) Est GFR (Non-Af Amer) BUN/Creatinine Ratio Glucose POC Glucose (other) 93 Lactate 0.8 Calcium POC Ioniz Calcium Sofie 1.14 Magnesium Total Bilirubin AST ALT Alkaline Phosphatase Troponin I High Sens Total Protein Albumin Globulin Albumin/Globulin Ratio SARS-CoV-2, RNA, NAAT NEGATIVE Blood Type Antibody Screen 12/25/21 12/25/21 12/25/21 10:31 10:31 10:31 WBC 6.36 RBC 4.69 Hgb 13.6 L POC Hgb Hct 43.2 POC Hct MCV 92.1 MCH 29.0 MCHC 31.5 L RDW Std Deviation 55.2 H RDW Coeff of Phu 16.4 H Plt Count 203 MPV 8.0 L Immature Gran % (Auto) 0.5 Neut % (Auto) 73.8 Lymph % (Auto) 15.6 [place] % (Auto) 6.8 Eos % (Auto) 2.5 Baso % (Auto) 0.8 Neut # (Auto) 4.70 Lymph # (Auto) 0.99 L [place] # (Auto) 0.43 Eos # (Auto) 0.16 Baso # (Auto) 0.05 Immature Gran # (Auto) 0.03 H PT 13.4 H INR 1.3 H APTT 40.4 H PTT Ratio 1.5 POC Sodium Sodium 142 POC Potassium Potassium 3.6 POC Chloride Chloride 106 Carbon Dioxide 30 POC Total CO2 Anion Gap 6 POC Anion Gap POC BUN BUN 11 Creatinine 0.96 POC Creatinine Est Cr Clr Drug Dosing 146.3 Est GFR ( Amer) 98.5 Est GFR (Non-Af Amer) 85.0 BUN/Creatinine Ratio 11.5 Glucose 92 POC Glucose (other) Lactate Calcium 8.2 L POC Ioniz Calcium Sofie Magnesium 1.9 Total Bilirubin 0.6 AST 14 ALT 11 Alkaline Phosphatase 162 H Troponin I High Sens 4.7 Total Protein 5.8 L Albumin 3.1 L Globulin 2.7 Albumin/Globulin Ratio 1.1 SARS-CoV-2, RNA, NAAT Blood Type Antibody Screen 12/25/21 10:31 WBC RBC Hgb POC Hgb Hct POC Hct MCV MCH MCHC RDW Std Deviation RDW Coeff of Phu Plt Count MPV Immature Gran % (Auto) Neut % (Auto) Lymph % (Auto) [place] % (Auto) Eos % (Auto) Baso % (Auto) Neut # (Auto) Lymph # (Auto) [place] # (Auto) Eos # (Auto) Baso # (Auto) Immature Gran # (Auto) PT INR APTT PTT Ratio POC Sodium Sodium POC Potassium Potassium POC Chloride Chloride Carbon Dioxide POC Total CO2 Anion Gap POC Anion Gap POC BUN BUN Creatinine POC Creatinine Est Cr Clr Drug Dosing Est GFR ( Amer) Est GFR (Non-Af Amer) BUN/Creatinine Ratio Glucose POC Glucose (other) Lactate Calcium POC Ioniz Calcium Sofie Magnesium Total Bilirubin AST ALT Alkaline Phosphatase Troponin I High Sens Total Protein Albumin Globulin Albumin/Globulin Ratio SARS-CoV-2, RNA, NAAT Blood Type O Positive Antibody Screen NEGATIVE Diagnostic Findings Head CT 07/14/22 10:[address] OF THE BRAIN; CT ANGIOGRAM OF THE BRAIN; CT ANGIOGRAM OF THE NECK CLINICAL HISTORY: Vertigo. COMPARISON STUDY: CT of the brain dated 10/30/2015. TECHNIQUE: Unenhanced axial CT scan of the brain is performed. Subsequently, following the IV administration of 120 of Optiray 320, CT angiogram of the head and neck was performed from the aortic arch to the vertex. Images are reviewed in the axial, sagittal, and coronal planes. 3-D MIPS images are created and assessed. IV contrast was administered without complication. All measurements were calculated based on NASCET criteria. A dose lowering technique was utilized adhering to the principles of ALARA. The examination is degraded by large body habitus, and by streak artifact from the shoulders abutting the CT gantry. The CT angiogram of the neck is significantly suboptimal due to poor contrast opacification of the arteries. CT DOSE: 1367.72 mGy.cm FINDINGS: Brain parenchyma: The brain parenchyma is normal in appearance. There is no hemorrhage, mass effect, or evidence of acute territorial ischemia by CT criteria. There is no evidence of enhancing mass lesion on the angiogram phase images. The ventricles, sulci, and cisterns are normal in configuration. Kelsey- white matter differentiation is preserved. No extra-axial fluid collection is seen. Thoracic aorta: Visualized portions of the thoracic aorta are normal in caliber. The aortic arch demonstrates standard 3-vessel anatomy. Right carotid arterial system: The right common carotid artery is patent, as are the right internal and external carotid arteries. Left carotid arterial system: The left common carotid artery is patent, as are the left internal and external carotid arteries. Vertebral arteries: The vertebral arteries are not well opacified and significantly obscured by streak artifact. These are not diagnostically assessed. Subclavian arteries: Patent bilaterally. Intracranial vasculature: There is mild atherosclerotic calcification of the cavernous carotid arteries. The internal carotid arteries are patent at the skull base, as are the anterior and middle cerebral arteries bilaterally. The vertebrobasilar system and posterior cerebral arteries are widely patent. The left vertebral artery is dominant. There is no aneurysm, high-grade stenosis, or focal vessel cut off seen throughout the intracranial circulation. Jugular veins: Not well opacified. Dural sinuses: Not well opacified. Lung apices: Partially visualized upper lobe lung parenchyma appears clear. Soft tissues: The visualized pharyngeal soft tissues are normal in appearance noting angiographic phase technique. The oropharyngeal airway appears widely patent. The salivary and thyroid glands are normal in appearance. No cervical lymphadenopathy is seen. Skeletal structures: The skeletal structures are heterogeneously osteopenic. The calvarium appears intact. The cervical spine is maintained noting multilevel spondylosis. No lytic or blastic lesion is seen. Orbits: The bony orbits are intact. Orbital contents are normal as visualized. Sinuses and mastoids: Retention cysts in the left maxillary antrum measure up to 1.8 cm. The remaining paranasal sinuses are clear. The mastoid air cells are well pneumatized. IMPRESSION: 1. There is no hemorrhage, mass effect, or evidence of acute territorial ischemia by CT criteria. 2. Unremarkable CT angiogram of the brain. 3. The CT angiogram of the neck is significantly suboptimal due to poor arterial opacification. There is also severe streak artifact. 4. The carotid arteries in the neck appear patent. 5. The vertebral arteries in the neck are not diagnostically evaluated. 6. Additional findings as above. ACT 112: Negative or not required by law. Electronically signed by: Kameron Diaz M.D. 12/25/2021 11:34 AM Head CTA 12/25/21 10:[address] OF THE BRAIN; CT ANGIOGRAM OF THE BRAIN; CT ANGIOGRAM OF THE NECK CLINICAL HISTORY: Vertigo. COMPARISON STUDY: CT of the brain dated 10/30/2015. TECHNIQUE: Unenhanced axial CT scan of the brain is performed. Subsequently, following the IV administration of 120 of Optiray 320, CT angiogram of the head and neck was performed from the aortic arch to the vertex. Images are reviewed in the axial, sagittal, and coronal planes. 3-D MIPS images are created and assessed. IV contrast was administered without complication. All measurements were calculated based on NASCET criteria. A dose lowering technique was utilized adhering to the principles of ALARA. The examination is degraded by large body habitus, and by streak artifact from the shoulders abutting the CT gantry. The CT angiogram of the neck is significantly suboptimal due to poor contrast opacification of the arteries. CT DOSE: 1367.72 mGy.cm FINDINGS: Brain parenchyma: The brain parenchyma is normal in appearance. There is no hemorrhage, mass effect, or evidence of acute territorial ischemia by CT criteria. There is no evidence of enhancing mass lesion on the angiogram phase images. The ventricles, sulci, and cisterns are normal in configuration. Kelsey- white matter differentiation is preserved. No extra-axial fluid collection is seen. Thoracic aorta: Visualized portions of the thoracic aorta are normal in caliber. The aortic arch demonstrates standard 3-vessel anatomy. Right carotid arterial system: The right common carotid artery is patent, as are the right internal and external carotid arteries. Left carotid arterial system: The left common carotid artery is patent, as are the left internal and external carotid arteries. Vertebral arteries: The vertebral arteries are not well opacified and significantly obscured by streak artifact. These are not diagnostically assessed. Subclavian arteries: Patent bilaterally. Intracranial vasculature: There is mild atherosclerotic calcification of the cavernous carotid arteries. The internal carotid arteries are patent at the skull base, as are the anterior and middle cerebral arteries bilaterally. The vertebrobasilar system and posterior cerebral arteries are widely patent. The left vertebral artery is dominant. There is no aneurysm, high-grade stenosis, or focal vessel cut off seen throughout the intracranial circulation. Jugular veins: Not well opacified. Dural sinuses: Not well opacified. Lung apices: Partially visualized upper lobe lung parenchyma appears clear. Soft tissues: The visualized pharyngeal soft tissues are normal in appearance noting angiographic phase technique. The oropharyngeal airway appears widely patent. The salivary and thyroid glands are normal in appearance. No cervical lymphadenopathy is seen. Skeletal structures: The skeletal structures are heterogeneously osteopenic. The calvarium appears intact. The cervical spine is maintained noting multilevel s pondylosis. No lytic or blastic lesion is seen. Orbits: The bony orbits are intact. Orbital contents are normal as visualized. Sinuses and mastoids: Retention cysts in the left maxillary antrum measure up to 1.8 cm. The remaining paranasal sinuses are clear. The mastoid air cells are well pneumatized. IMPRESSION: 1. There is no hemorrhage, mass effect, or evidence of acute territorial is chemia by CT criteria. 2. Unremarkable CT angiogram of the brain. 3. The CT angiogram of the neck is significantly suboptimal due to poor arterial opacification. There is also severe streak artifact. 4. The carotid arteries in the neck appear patent. 5. The vertebral arteries in the neck are not diagnostically evaluated. 6. Additional findings as above. ACT 112: Negative or not required by law. Electronically signed by: Kameron Diaz M.D. 12/25/2021 11:34 AM Neck CTA 12/25/21 10:[address] OF THE BRAIN; CT ANGIOGRAM OF THE BRAIN; CT ANGIOGRAM OF THE NECK CLINICAL HISTORY: Vertigo. COMPARISON STUDY: CT of the brain dated 10/30/2015. TECHNIQUE: Unenhanced axial CT scan of the brain is performed. Subsequently, following the IV administration of 120 of Optiray 320, CT angiogram of the head and neck was performed from the aortic arch to the vertex. Images are reviewed in the axial, sagittal, and coronal planes. 3-D MIPS images are created and assessed. IV contrast was administered without complication. All measurements were calculated based on NASCET criteria. A dose lowering technique was utilized adhering to the principles of ALARA. The examination is degraded by large body habitus, and by streak artifact from the shoulders abutting the CT gantry. The CT angiogram of the neck is significantly suboptimal due to poor contrast opacification of the arteries. CT DOSE: 1367.72 mGy.cm FINDINGS: Brain parenchyma: The brain parenchyma is normal in appearance. There is no hemorrhage, mass effect, or evidence of acute territorial ischemia by CT criteria. There is no evidence of enhancing mass lesion on the angiogram phase images. The ventricles, sulci, and cisterns are normal in configuration. Kelsey- white matter differentiation is preserved. No extra-axial fluid collection is seen. Thoracic aorta: Visualized portions of the thoracic aorta are normal in caliber. The aortic arch demonstrates standard 3-vessel anatomy. Right carotid arterial system: The right common carotid artery is patent, as are the right internal and external carotid arteries. Left carotid arterial system: The left common carotid artery is patent, as are the left internal and external carotid arteries. Vertebral arteries: The vertebral arteries are not well opacified and significantly obscured by streak artifact. These are not diagnostically assessed. Subclavian arteries: Patent bilaterally. Intracranial vasculature: There is mild atherosclerotic calcification of the cavernous carotid arteries. The internal carotid arteries are patent at the skull base, as are the anterior and middle cerebral arteries bilaterally. The vertebrobasilar system and posterior cerebral arteries are widely patent. The left vertebral artery is dominant. There is no aneurysm, high-grade stenosis, or focal vessel cut off seen throughout the intracranial circulation. Jugular veins: Not well opacified. Dural sinuses: Not well opacified. Lung apices: Partially visualized upper lobe lung parenchyma appears clear. Soft tissues: The visualized pharyngeal soft tissues are normal in appearance noting angiographic phase technique. The oropharyngeal airway appears widely patent. The salivary and thyroid glands are normal in appearance. No cervical lymphadenopathy is seen. Skeletal structures: The skeletal structures are heterogeneously osteopenic. The calvarium appears intact. The cervical spine is maintained noting multilevel spondylosis. No lytic or blastic lesion is seen. Orbits: The bony orbits are intact. Orbital contents are normal as visualized. Sinuses and mastoids: Retention cysts in the left maxillary antrum measure up to 1.8 cm. The remaining paranasal sinuses are clear. The mastoid air cells are wel l pneumatized. IMPRESSION: 1. There is no hemorrhage, mass effect, or evidence of acute territorial ischemia by CT criteria. 2. Unremarkable CT angiogram of the brain. 3. The CT angiogram of the neck is significantly suboptimal due to poor arterial opacification. There is also severe streak artifact. 4. The carotid arteries in the neck appear patent. 5. The vertebral arteries in the neck are not diagnostically evaluated. 6. Additional findings as above. ACT 112: Negative or not required by law. Electronically signed by: Kameron Diaz M.D. 12/25/2021 11:34 AM Code Status & VTE Plan Code Status Full code Supervising Physician Co-Signing Physician Notes Patient was seen and examined independently at bedside. Chart reviewed. Case discussed with Aracelis MINOR and agree with the documentation above. In summary, this is a 61 year old morbidly obese male with enterococcal bacteremia with diskitis, epidural abscess and psoas abscess s/p iv antibiotic course from September until 3 days back and started on po amoxicillin tid by ID presented today with generalized weakness, vertigo this morning. States he recently completed rehab at [facility] 2.5 weeks back and has been home since. He has been doing his therapy at home and uses walker to ambulate. He had a court date yesterday and felt weak last night when he returned. This morning, when he woke up, he had vertigo. He tried to go to the bathroom and felt weak as if he had no strength. Once he came back from the bathroom, the vertigo was worse. Also endorses occipital headache since this morning which is currently 2. Back pain is controlled. He came to the ED for evaluation. He was given meclizine in ED and felt much better during my encounter. Denies any prior episodes. No tinnitus, hearing loss. No numbness, weakness, tingling or focal deficits. No fever or chills. Labs including CBC, CMP unremarkable. CT head, CTA head and neck unremarkable. On exam- lying comfortably in bed, AAO, no nystagmus, EOMI, JEFFRY, no diplopia, chest clear, abd benign, no edema, morbidly obese. Will keep in obs for symptom control. Agree with MRI brain given his complicated history with recent bacteremia and abscesses. Follow blood clx. Meclizine prn. PT/OT eval. He took all his morning meds today. Rest as per the note above. On exam-
[2021-12-25] MEDS ORDERED: GADOBUTROL 65ML VIAL IV ONE (16:26)
--- NOTE | 2021-12-25 16:41 | Magnetic Resonance Report ---
Brain MRI WITH AND WITHOUT CONTRAST HISTORY: Dizziness, hx epidural abscess TECHNIQUE: Multiplanar multisequence MRI of the brain was performed both before and after the intrave nous administration of contrast. COMPARISON STUDY: Head CT 12/25/2021. FINDINGS: There is no mass, hematoma, midline shift, or acute infarct. Retention cyst noted within th e left maxillary sinus. The remaining paranasal sinuses are clear. The mastoid air cells are clear. T he ventricles and sulci demonstrate mild age-related involutional changes. There are few punctate sca ttered foci of T2 hyperintensity seen within the periventricular and subcortical white matter are non specific but suggestive of early microvascular ischemic changes. The major vascular flow voids at the skull base are well-maintained. IMPRESSION: No acute intracranial abnormality. ACT 112: Negative or not required by law. Electronically signed by: Aidan Mota M.D. 12/25/2021 4:40 PM
[2021-12-25] MEDS ORDERED: PHARMACIST DISCHARGE MED REC CONSULT PRN (17:00)
[2021-12-25] MEDS ORDERED: DICLOFENAC SOD 1% GEL 100 GM TUBE EXT PRN (20:03)
[2021-12-25] MEDS ORDERED: oxyCODONE HCL IR 5 MG TAB (IMMEDIATE RELEASE) PO PRN (20:03)
[2021-12-25] MEDS ORDERED: traZODone HCL 50 MG TAB PO PRN (20:03)
[2021-12-25] MEDS ORDERED: PANTOprazole 40 MG TAB PO PRN (20:03)
[2021-12-25] MEDS: MAGNESIUM OXIDE 400 MG TAB PO SCH (20:47)
[2021-12-25] MEDS: METOPROLOL SUCC 50MG EXT REL TAB PO SCH (20:48)
[2021-12-25] MEDS ORDERED: POTASSIUM CHLORIDE PWD 20 MEQ PACK PO SCH (21:00)
[2021-12-25] MEDS: RIVAROXABAN 20 MG TAB PO SCH (21:01)
[2021-12-25] MEDS: AMOXICILLIN 500 MG CAP PO SCH (21:01)
[2021-12-26] MEDS: LEVOTHYROXINE SODIUM 125 MCG TABLET PO SCH (05:56)
[2021-12-26 06:11] LABS: Basophils # (auto) 0.05 K/uL (0-0.2); Basophils % (auto) 0.8 %; Eosinophils # (auto) 0.18 K/uL (0-0.50); Hematocrit (blood only) 38.8 % (40.1-51.0); Hemoglobin 12.4 g/dl (14.0-18.0); Immature Granulocytes # (auto) 0.02 K/uL (0.00-0.02); Immature Granulocytes % (auto) 0.3 %; Lymphocytes # (auto) 1.36 K/uL (1.2-3.4); Lymphocytes % (auto) 22.4 %; Mean Corpuscular Hemoglobin 29.1 pg (25.0-34.0); Mean Corpuscular Volume 91.1 fL (80.0-100.0); Mean Platelet Volume 8.2 fL (9.4-12.4); Monocytes # (auto) 0.63 K/uL (0.24-0.82); Monocytes % (auto) 10.4 %; Neutrophils # (auto) 3.83 K/uL (1.4-6.5); Neutrophils % (auto) 63.1 %; Platelet Count 192 K/uL (130-400); RDW Coefficient of Variation 16.4 % (11.5-14.5); RDW Standard Deviation 54.7 fL (36.4-46.3); Red Blood Count 4.26 M/uL (4.63-6.08); White Blood Count 6.07 K/ul (4.8-10.8)
[2021-12-26 06:41] LABS: BUN Creatinine Ratio 10.5 (10-20); Calcium 7.5 mg/dl (8.5-10.1); Chol HDL Ratio 2.5 (0-5); Creatinine Clr Calc Pharmacy 131.1 ml/min; Est GFR (African American) 88.4 ml/min; Est GFR (Non-African American) 76.2 ml/min
[2021-12-26 06:59] LABS: Estimated Average Glucose 91 mg/dl; Hemoglobin A1C 4.8 % (4.5-5.6)
[2021-12-26] MEDS: AMOXICILLIN 500 MG CAP PO SCH ×3 (07:36→20:06)
[2021-12-26] MEDS: dilTIAZem HCL 240 MG CAPCR PO SCH (07:36)
[2021-12-26] MEDS: METOPROLOL SUCC 50MG EXT REL TAB PO SCH ×2 (07:37→20:07)
[2021-12-26] MEDS: ESCITALOPRAM OXALATE 20 MG TAB PO SCH (07:37)
[2021-12-26] MEDS: FLUoxetine HCL 10 MG CAP PO SCH (07:37)
[2021-12-26] MEDS: MAGNESIUM OXIDE 400 MG TAB PO SCH ×2 (07:38→20:06)
[2021-12-26] MEDS: FUROSEMIDE 40 MG TAB PO SCH (07:38)
[2021-12-26] MEDS: MELOXICAM 7.5 MG TAB PO SCH (07:38)
[2021-12-26] MEDS: ADVANCED PROBIOTIC 1250 MG CAPSULE PO SCH (09:35)
[2021-12-26] MEDS ORDERED: NYSTATIN POWDER 15GM BTL EXT PRN (09:55)
[2021-12-26] MEDS ORDERED: Nursing to Pharmacy Communication SCH (14:15)
--- NOTE | 2021-12-26 14:51 | Neurology Consultation ---
Date of Consultation December 26, 2021 Assessment & Plan (1) Vertigo: 1. stroke work up 2. MRI brain no stroke 3. CTA head and neck what could be read was normal but suboptimal 4. TTE - 55-60% EF no ASD 5. continue Xarelto 20 mg hs 6. follow with ID as scheduled 7. optimize HTN HLD, DM LDL <70 8. PT/OT for discharge needs 9. vertigo if returns Berhane would help or out patient PT for Berhane, meclizine help prior event. no follow up needed with neurology he can follow prn Supervising Physician Co-Signing Physician Notes I have seen and discussed above patient with Dr Denise Martinez, neurology patient seen and examined. Discussed with NOAH Roberson. MRI brain shows no acute abnormality CTA of the neck is suboptimal due to poor arterial opacification and streak artifact due to his shoulders. In spite of the fact th at the patient give a history of a VSD cardiology has previously commented that his echoes have not shown to VSD. The patient's blood cultures have not grown out 2organisms to date this patient has no prior history of transient ischemic attack or stroke. He has no history of vertigo or family history of vertigo. The patient reports early in the morning awakening with continuous spinning with mild nausea. There is also mild occipital headache. There was no double vision slurred speech he felt mildly generally weak there is no unilateral weakness or numbness. There was no facial droop. No ear pain ringing hearing loss or pressure movement did not worsen the symptoms. Meclizine helped the symptoms to resolve. There is no chest pain palpitation. He has had sepsis approximately 3 months ago and an epidural and psoas abscess and was switched to oral antibiotics about a week ago he has been feeling well recently has not had any head or neck trauma. Has not had any fevers chills or sweats. None of his medicines are new or changed in dose Vitals are notable for him to be afebrile he does not have a white count. Provocative head maneuvers are negative Nguyen Dina are nonlateralizing gross hearing is symmetric pupils are equal optic nerves difficult to visualize normal mari motility without nystagmus normal facial symmetry tongue is midline motor 5 out of 5 limited in the lowers secondary to morbid obesity symmetric reflexes absent ankle jerks downgoing toes. Intact light touch and temperature bilaterally. [id number] is normal and [id number] was limited due to leg positioning not tested there were no carotid vertebral or supraclavicular bruits and radial pulses were palpably symmetric Impression this patient had several hours of vertigo without other neurologic accompaniments. Most likely this did not represent a central event given the normalcy of the MRI of the brain. Likely this was peripheral and labyrinthine. If the patient were to have recurrent events I would recommend repeating the CTA of the head and neck. The timing of the bolus was suboptimal and that may add some additional information. In the absence of an infarct or ongoing symptoms I do not think that needs to be repeated at this point. The streak artifact from his shoulders would likely be very difficult to eliminate. I do not think there is enough evidence to suggest this is a stroke therefore I would not change his anticoagulant nor when I add an antiplatelet agent as it likely would increase his risk of bleeding complications. Recommend good control of blood pressure blood sugar and lipid status again if there are recurrent episodes I would repeat an echo with a bubble study. Will sign off please reconsult if there are questions or concerns. Denise Martinez MD History of Present Illness Reason for Consultation: stroke like symptoms Requesting Physician: Vishal Vu MD Attending Physician: Vishal Vu MD History of Present Illness Anton is a 61 year old male with PMH-chronic Afib, HTN, hypothyroidism, GERD, Morbid obesity with BMI 69.7, gastric bypass ~5 years ago, who was recently hospitalized here at [facility] on September 12, 2021 for back pain and found to have enterococcal sepsis secondary to osteomyelitis and discitis involving L2-L3. There was a very small epidural abscess that was present at that time and he was sent home with PICC line on amipcillin IV. He retruned to the hospital on September 28, 2021 with markeldy worse back pain which radiated down both legs, and found to be in Afib with RVR. Afib was treated with cardizem drip. Due to issues with the MRI machine at [facility] they were unable to immediately we evaluate the epidural abscess. On October 01 MRI noted that he had an epidural abscess interventional radiology performed biopsy and drainage on that study patient was also noted to have multiple small abscesses along the psoas muscle and on October 02 IR proceeded to drain the largest psoas abscess. He had again positive blood cultures for enterococci on October 03. He was referred to [facility] afterwards due to ambulatory dysfunction secondary to pain status post his epidural abscess drainage, as well as left knee and present a week prior to his original hospitalization and over that period of time had gotten particularly worse.He was discharged from [facility] on 11/19/2021. He has worsening dizziness and generalized weakness which started 12/25/21 around 5 am. Pt admits to having photosensitivity, and occipital headache worse on the left. It seemed to get better in the late morning, and now has come back which is a 4/10.He had some heart fluttering, like he does when he's in afib, but denies and chest pain or shortness of breath. He has been sleeping in a r ecliner due to limited ability to get in and out of bed with the above and needing rehab still 3 x per week as an outpatient. He required help to get him to the bathroom, and then was able to get himself up and walk out to the kitchen. He has had some intermittent nausea but at breakfast ate an [place] muffin thinking his sugar was possibly low (denies hx of diabetes), but this did not help. Currently he is living with his mother an father. He did take all his routinely scheduled medications. He is feeling better today. the vertigo was stopped once the meclizine was given. Allergies Allergy/AdvReac Type Severity Reaction Status Date / Time No Known Allergies Allergy ` Verified 09/28/21 18:15 Home Medications Medication Instructions Recorded Confirmed Type diclofenac sodium 1 % topical gel 2 g topical QID PRN Pain 11/24/18 12/25/21 History diltiazem HCl 240 mg 240 mg PO QAM 11/24/18 12/25/21 History tablet,extended release 24 hr ergocalciferol (vitamin D2) 1,250 50,000 unit PO WK 11/24/18 12/25/21 History mcg (50,000 unit) capsule (Vitamin D2) magnesium oxide 400 mg PO BID 11/24/18 12/25/21 History metoprolol succinate 100 mg 100 mg PO BID 11/24/18 12/25/21 History tablet,extended release 24 hr pantoprazole 40 mg tablet,delayed 40 mg PO DAILY PRN Gi Upset 11/24/18 12/25/21 History release rivaroxaban 20 mg tablet (Xarelto) 20 mg PO HS 11/24/18 12/25/21 History trazodone 50 mg tablet 150 mg PO QDD PRN Sleep 11/24/18 12/25/21 History ferrous sulfate 325 mg (65 mg 325 mg PO QAM 11/28/18 12/25/21 History iron) tablet (iron) furosemide 40 mg tablet (Lasix) 40 mg PO QAM edema 08/01/19 12/25/21 History potassium chloride 20 mEq oral 20 meq PO HS 08/01/19 12/25/21 History packet (Klor-Con) levothyroxine 125 mcg tablet 125 mcg PO DAILYBB 09/10/21 12/25/21 History oxycodone 5 mg tablet 5 mg PO Q6H PRN pain #8 tabs 09/10/21 09/12/21 Rx escitalopram oxalate 20 mg tablet 20 mg PO QAM 09/28/21 12/25/21 History meloxicam 15 mg tablet 15 mg PO QAM 09/28/21 12/25/21 History oxycodone 5 mg tablet 5 mg PO Q6H PRN pain 09/28/21 12/25/21 History amoxicillin 500 mg capsule 1,000 cap PO TID 12/25/21 12/25/21 History fluoxetine 10 mg capsule 10 mg PO QAM 12/25/21 12/26/21 History Patient History Medical History Chest pain Chronic anticoagulation Coronary artery disease "moderate disease per cardiac cath [facility] 2013; 50% LAD, 40% RCA" Depression Diabetes mellitus type 2, controlled History of colonic polyps History of urinary calculi "right ureteral stone 2015" Hx of sciatica Hypertension Hypothyroidism Insomnia Iron deficiency anemia "heme + stool 2015, subsequent EGD and colonoscopy neg except for polyp" Lumbar disc herniation Lumbar radiculopathy Morbid obesity Paroxysmal atrial fibrillation Ventricular septal defect Vitamin B12 deficiency Surgical History Status post cardiac catheterization "2013, 50% LAD, 40% RCA" Status post cystoscopy "with right ureteroscopy, laser lithotripsy, basket stone extraction" Status post gastric bypass for obesity Family History (Updated 12/25/21 @ 13:52 by Aracelis Mcdaniel PA-C) Other No pertinent family history Social History Smoking Status: Never smoker Second Hand Exposure: No; Do You Dip or Chew Tobacco: No; Tobacco Cessation Education Requested by Patient: No Hx Alcohol Use: Yes Alcohol type: hard liquor Hx Substance Use: No Preferred Language: Armenian Communication Ability: Effective Hearing Ability: Normal Mortar Mixer Required: No Beliefs That Will Affect Care: None marital status: Single Current Living Situation: Family Other Information That Helps Us Care for You: No Feels Safe at Home: Yes Safety Concerns: Feels Safe At This Time Assistive Devices: Walker Review of Systems Review of Systems: All systems reviewed & are unremarkable except as noted in HPI & below Physical Exam Physical Exam: Physical Exam: Constitutional: appearance nourished, morbidly obese Ears, Nose, Mouth and Throat: mucous membranes moist, no injection and skin normal, eyes normal Cardiovascular: irregular Respiratory: course breath sounds Musculoskeletal: peripheral edema bilateral LE Skin: neurocutaneous disease, bilaterally LE no weeping or drainage Eyes: extraocular muscles intact (EOMI) and pupils equal reactive no nystagmus NEUROLOGIC EXAMINATION: Mental status: Alert and interactive Oriented to full date and location Oriented to person Speech fluent with no evidence of aphasia Cranial Nerves smile eye brow raise symmetric Reflexes: Deep tendon reflexes unable to illicit due to size Sensory: cool touch and GT proprioception intact Coordination: finger to nose Gait/Stance: Posture lying in bed Motor: Negative for pronator drift of out stretched arms with eyes closed. Strength: hand tare man biceps triceps deltoids 5/5 bilaterally hip flex 4/5 bilaterally plantar flex ext 5/5 Results & Data ([facility]) Vital Signs (Past 12 Hours) Vital Signs Temp Pulse Pulse Resp BP Pulse Ox O2 Del Method 12/26/21 11:29 37.4 C 81 18 137/71 96 Room Air 12/26/21 08:29 88 12/26/21 07:52 Room Air 12/26/21 07:12 36.6 C 88 19 118/67 97 Room Air 12/26/21 03:32 36.5 C 89 18 125/76 96 Room Air Laboratory Results Abnormal lab results 12/26/21 12/26/21 Range/Units 05:52 05:52 RBC 4.26 L (4.63-6.08) M/uL Hgb 12.4 L (14.0-18.0) g/dl Hct 38.8 L (40.1-51.0) % RDW Std Deviation 54.7 H (36.4-46.3) fL RDW Coeff of Phu 16.4 H (11.5-14.5) % MPV 8.2 L (9.4-12.4) fL Calcium 7.5 L (8.5-10.1) mg/dl Diagnostic Findings CT head/CTA head/neck-There is no hemorrhage, mass effect, or evidence of acute territorial ischemia by CT criteria. Unremarkable CT angiogram of the brain.. The CT angiogram of the neck is significantly suboptimal due to poor arterial opacification. There is also severe streak artifact.. The carotid arteries in the neck appear patent. The vertebral arteries in the neck are not diagnostically evaluated. MRI brain-No acute intracranial abnormality.
--- NOTE | 2021-12-26 16:16 | Hospitalist Progress Note ---
Date of Service December 26, 2021 Assessment & Plan (1) Vertigo: Plan (1) Generalized weakness: (2) Headache: (3) Dizziness: -Continue telemetry observation. -Admitting CT head, CTA head and neck with no acute findings. -Admitting brain MRI with no acute findings. -Troponin trend x2 were negative. EKG with A. fib. Admitting echo with EF 55 to 60%, mild concentric LVH. -Neurology evaluated, appreciate recommendation. -Patient received meclizine in the ED with improvement in his dizziness, will continue meclizine as needed. -Patient reports continued similar weakness, PT/OT, CM to assist with DC planning. (4) Epidural abscess: (5) Enterococcal bacteremia: Plan: - Hx of such originally diagnosed October 01. Was treated with IV ampicillin. Bacteremia was complicated by discitis and SEA. He was then admitted to [facility] and found to have multiple psoas abscesses. IR draiage was pursued and cultures were ultimately negative. End of IV ampicillin was on 12/18/21. Since then he has been on Amoxicillin 1 g PO TID until instructed to discontinue per infectious disease. Pt has been following with [facility] ID. Pt to f/u w/ ID as scheduled. (6) Morbid obesity: Plan: - BMI of of 69.7 - hx of gastric bypass surgery - counselled. (7) Chronic atrial fibrillation: Plan: - Cont on xarelto - Currently rate controlled at bedside. DVT ppx: xarelto CODE: Full Code Dispo: PT/OT, likely will need placement. Admission and Anticipated Discharge Date Admission Date: December 26, 2021 Subjective Patient seen and examined at bedside as a follow-up of vertigo and generalized weakness. Patient was lying in bed, on room air, NAD, denies any new acute events overnight. Patient reports improvement in his vertigo. Patient reports his weakness around the same level as of yesterday. Patient denies headache or chest pain or sore throat or cough or belly pain or other review of symptoms. Patient reports eating okay and moving bowels okay. Physical Exam Physical Exam: GENERAL: Alert and oriented x3. NAD, on RA. Morbidly obese. HEENT: No pallor, no icterus. Pupils equal, round and reactive to light. Oral mucosa moist. NECK: No JVD, no neck masses. HEART: S1 and S2 heard. Regular rate and rhythm. No murmur, no gallop. RESPIRATORY SYSTEM: Normal AP diameter. No accessory muscle use. No wheezing, no crackles. ABDOMEN: Soft, bowel sounds present, nontender, no distention. CENTRAL NERVOUS SYSTEM: No facial droop. Speech is clear. Obeys simple commands. Moves extremities. EXTREMITIES: No edema, no erythema seen. Results & Data Results & Data ([facility]) Vital Signs (Past 12 Hours) Vital Signs Temp Pulse Pulse Resp BP Pulse Ox O2 Del Method 12/26/21 16:00 84 12/26/21 15:24 36.9 C 89 19 107/64 92 Room Air 12/26/21 11:29 37.4 C 81 18 137/71 96 Room Air 12/26/21 08:29 88 12/26/21 07:52 Room Air 12/26/21 07:12 36.6 C 88 19 118/67 97 Room Air
[2021-12-26] MEDS ORDERED: MECLIZINE 12.5 MG TAB PO PRN (16:24)
[2021-12-26] MEDS: POTASSIUM CHLORIDE CRTAB 20 MEQ TABCR PO SCH (20:06)
[2021-12-26] MEDS: RIVAROXABAN 20 MG TAB PO SCH (20:07)
[2021-12-27] MEDS: LEVOTHYROXINE SODIUM 125 MCG TABLET PO SCH (05:29)
[2021-12-27 06:11] LABS: Basophils # (auto) 0.05 K/uL (0-0.2); Basophils % (auto) 0.8 %; Eosinophils # (auto) 0.19 K/uL (0-0.50); Eosinophils % (auto) 3.2 %; Hematocrit (blood only) 40.7 % (40.1-51.0); Hemoglobin 13.3 g/dl (14.0-18.0); Immature Granulocytes # (auto) 0.02 K/uL (0.00-0.02); Immature Granulocytes % (auto) 0.3 %; Lymphocytes # (auto) 1.47 K/uL (1.2-3.4); Lymphocytes % (auto) 24.4 %; Mean Corpuscular Hemoglobin 29.2 pg (25.0-34.0); Mean Corpuscular Hgb Conc 32.7 g/dL (32.0-36.0); Mean Corpuscular Volume 89.3 fL (80.0-100.0); Monocytes # (auto) 0.55 K/uL (0.24-0.82); Monocytes % (auto) 9.1 %; Neutrophils # (auto) 3.75 K/uL (1.4-6.5); Neutrophils % (auto) 62.2 %; Platelet Count 190 K/uL (130-400); RDW Coefficient of Variation 15.9 % (11.5-14.5); RDW Standard Deviation 52.6 fL (36.4-46.3); Red Blood Count 4.56 M/uL (4.63-6.08); White Blood Count 6.03 K/ul (4.8-10.8)
[2021-12-27 06:35] LABS: BUN Creatinine Ratio 12.8 (10-20); Calcium 7.5 mg/dl (8.5-10.1); Creatinine Clr Calc Pharmacy 160.1 ml/min; Est GFR (African American) 108.5 ml/min; Est GFR (Non-African American) 93.6 ml/min; Potassium 3.9 mmol/L (3.5-5.1)
[2021-12-27] MEDS: METOPROLOL SUCC 50MG EXT REL TAB PO SCH ×2 (07:14→20:31)
[2021-12-27] MEDS: AMOXICILLIN 500 MG CAP PO SCH ×3 (07:15→20:32)
[2021-12-27] MEDS: dilTIAZem HCL 240 MG CAPCR PO SCH (07:15)
[2021-12-27] MEDS: FLUoxetine HCL 10 MG CAP PO SCH (07:15)
[2021-12-27] MEDS: MELOXICAM 7.5 MG TAB PO SCH (07:15)
[2021-12-27] MEDS: ADVANCED PROBIOTIC 1250 MG CAPSULE PO SCH (07:16)
[2021-12-27] MEDS: ESCITALOPRAM OXALATE 20 MG TAB PO SCH (07:16)
[2021-12-27] MEDS: FUROSEMIDE 40 MG TAB PO SCH (07:16)
[2021-12-27] MEDS: MAGNESIUM OXIDE 400 MG TAB PO SCH ×2 (07:16→20:31)
--- NOTE | 2021-12-27 12:04 | Progress Notes ---
DATE OF SERVICE: 12/27/2021. SUBJECTIVE: I am seeing the patient in followup of dizziness with a negative MRI. He has not had an y recurrent events. He had a mild headache this morning, which he attributed to caffeine deprivation and resolved after he had some caffeine. IMPRESSION: Vertigo, suspect peripheral in origin. No change in management. See my prior dictation . We will sign off. Job ID: [id number]
--- NOTE | 2021-12-27 15:18 | Hospitalist Progress Note ---
Date of Service December 27, 2021 Assessment & Plan (1) Vertigo: Plan (1) Generalized weakness: (2) Headache: (3) Dizziness: -Continue telemetry observation. -Admitting CT head, CTA head and neck with no acute findings. -Admitting brain MRI with no acute findings. -Troponin trend x2 were negative. EKG with A. fib. Admitting echo with EF 55 to 60%, mild concentric LVH. -Neurology evaluated, appreciate recommendation. -Patient received meclizine in the ED with improvement in his dizziness, will continue meclizine as needed. -No further vertigo, patient reports improvement in his weakness, PT/OT, CM to assist with DC planning. (4) Epidural abscess: (5) Enterococcal bacteremia: Plan: - Hx of such originally diagnosed October 01. Was treated with IV ampicillin. Bacteremia was complicated by discitis and SEA. He was then admitted to [facility] and found to have multiple psoas abscesses. IR draiage was pursued and cultures were ultimately negative. End of IV ampicillin was on 12/18/21. Since then he has been on Amoxicillin 1 g PO TID until instructed to discontinue per infectious disease. Pt has been following with [facility] ID. Pt to f/u w/ ID as scheduled. (6) Morbid obesity: Plan: - BMI of of 69.7 - hx of gastric bypass surgery - counselled. (7) Chronic atrial fibrillation: Plan: - Cont on xarelto - Currently rate controlled at bedside. DVT ppx: xarelto CODE: Full Code Dispo: MedSurg. PT/OT, likely will need placement. Admission and Anticipated Discharge Date Admission Date: December 26, 2021 Subjective Patient seen and examined at bedside as a follow-up of vertigo and generalized weakness. Patient was lying in bed, on room air, NAD, denies any new acute events overnight. Patient reports no further vertigo, reports improvement in his weakness. Patient denies headache or chest pain or sore throat or cough or belly pain or other review of symptoms. Patient reports eating okay and moving bowels okay. Physical Exam Physical Exam: GENERAL: Alert and oriented x3. NAD, on RA. Morbidly obese. HEENT: No pallor, no icterus. Pupils equal, round and reactive to light. Oral mucosa moist. NECK: No JVD, no neck masses. HEART: S1 and S2 heard. Regular rate and rhythm. No murmur, no gallop. RESPIRATORY SYSTEM: Normal AP diameter. No accessory muscle use. No wheezing, no crackles. ABDOMEN: Soft, bowel sounds present, nontender, no distention. CENTRAL NERVOUS SYSTEM: No facial droop. Speech is clear. Obeys simple commands. Moves extremities. EXTREMITIES: Trace edema, no erythema seen. Results & Data Results & Data ([facility]) Vital Signs (Past 12 Hours) Vital Signs Temp Pulse Pulse Pulse Resp BP Pulse Ox 12/27/21 14:49 79 12/27/21 11:12 37.1 C 76 17 112/58 L 95 12/27/21 09:24 99 H 12/27/21 07:10 36.5 C 89 16 135/100 95 12/27/21 07:07 12/27/21 03:55 36.5 C 87 20 127/90 95 O2 Del Method 12/27/21 14:49 12/27/21 11:12 Room Air 12/27/21 09:24 12/27/21 07:10 Room Air 12/27/21 07:07 Room Air 12/27/21 03:55 Room Air
[2021-12-27] MEDS: RIVAROXABAN 20 MG TAB PO SCH (20:32)
[2021-12-27] MEDS: POTASSIUM CHLORIDE CRTAB 20 MEQ TABCR PO SCH (20:32)
[2021-12-28] MEDS: LEVOTHYROXINE SODIUM 125 MCG TABLET PO SCH (06:03)
[2021-12-28 07:03] LABS: Basophils # (auto) 0.06 K/uL (0-0.2); Basophils % (auto) 1.1 %; Eosinophils % (auto) 3.6 %; Hematocrit (blood only) 43.3 % (40.1-51.0); Hemoglobin 14.2 g/dl (14.0-18.0); Immature Granulocytes # (auto) 0.01 K/uL (0.00-0.02); Immature Granulocytes % (auto) 0.2 %; Lymphocytes # (auto) 1.49 K/uL (1.2-3.4); Lymphocytes % (auto) 26.6 %; Mean Corpuscular Hemoglobin 29.1 pg (25.0-34.0); Mean Corpuscular Hgb Conc 32.8 g/dL (32.0-36.0); Mean Corpuscular Volume 88.7 fL (80.0-100.0); Mean Platelet Volume 8.4 fL (9.4-12.4); Monocytes # (auto) 0.48 K/uL (0.24-0.82); Monocytes % (auto) 8.6 %; Neutrophils # (auto) 3.37 K/uL (1.4-6.5); Neutrophils % (auto) 59.9 %; Platelet Count 207 K/uL (130-400); RDW Coefficient of Variation 15.8 % (11.5-14.5); RDW Standard Deviation 51.8 fL (36.4-46.3); Red Blood Count 4.88 M/uL (4.63-6.08); White Blood Count 5.61 K/ul (4.8-10.8)
[2021-12-28 07:05] LABS: BUN Creatinine Ratio 11.3 (10-20); Calcium 7.7 mg/dl (8.5-10.1); Creatinine Clr Calc Pharmacy 163.7 ml/min; Est GFR (African American) 111.7 ml/min; Est GFR (Non-African American) 96.4 ml/min; Potassium 3.7 mmol/L (3.5-5.1)
[2021-12-28] MEDS: AMOXICILLIN 500 MG CAP PO SCH ×3 (08:42→20:01)
[2021-12-28] MEDS: ESCITALOPRAM OXALATE 20 MG TAB PO SCH (08:43)
[2021-12-28] MEDS: dilTIAZem HCL 240 MG CAPCR PO SCH (08:43)
[2021-12-28] MEDS: FUROSEMIDE 40 MG TAB PO SCH (08:43)
[2021-12-28] MEDS: ADVANCED PROBIOTIC 1250 MG CAPSULE PO SCH (08:43)
[2021-12-28] MEDS: METOPROLOL SUCC 50MG EXT REL TAB PO SCH ×3 (08:43→20:29)
[2021-12-28] MEDS: MELOXICAM 7.5 MG TAB PO SCH (08:43)
[2021-12-28] MEDS: FLUoxetine HCL 10 MG CAP PO SCH (08:43)
[2021-12-28] MEDS: MAGNESIUM OXIDE 400 MG TAB PO SCH ×2 (08:43→20:01)
[2021-12-28] MEDS ORDERED: ERGOCALCIFEROL 50,000 UNITS 1250 MCG CAP PO SCH (09:00)
--- NOTE | 2021-12-28 18:04 | Hospitalist Progress Note ---
Date of Service December 28, 2021 Assessment & Plan (1) Vertigo: Plan (1) Generalized weakness: (2) Headache: (3) Dizziness: -Continue telemetry observation. -Admitting CT head, CTA head and neck with no acute findings. -Admitting brain MRI with no acute findings. -Troponin trend x2 were negative. EKG with A. fib. Admitting echo with EF 55 to 60%, mild concentric LVH. -Neurology evaluated, appreciate recommendation. -Patient received meclizine in the ED with improvement in his dizziness, will continue meclizine as needed. -No further vertigo, patient reports improvement in his weakness, PT/OT, CM to assist with DC planning. (4) Epidural abscess: (5) Enterococcal bacteremia: Plan: - Hx of such originally diagnosed October 01. Was treated with IV ampicillin. Bacteremia was complicated by discitis and SEA. He was then admitted to [facility] and found to have multiple psoas abscesses. IR draiage was pursued and cultures were ultimately negative. End of IV ampicillin was on 12/18/21. Since then he has been on Amoxicillin 1 g PO TID until instructed to discontinue per infectious disease. Pt has been following with [facility] ID. Pt to f/u w/ ID as scheduled. (6) Morbid obesity: Plan: - BMI of of 69.7 - hx of gastric bypass surgery - counselled. (7) Chronic atrial fibrillation: Plan: - Cont on xarelto - Currently rate controlled at bedside. DVT ppx: xarelto CODE: Full Code Dispo: MedSurg. PT/OT, likely will need placement. stable for DC. will need OP f/u w/ ID. Admission and Anticipated Discharge Date Admission Date: December 26, 2021 Subjective Patient seen and examined at bedside as a follow-up of vertigo and generalized weakness. Patient was lying in bed, on room air, NAD, denies any new acute events overnight. Patient reports no further vertigo, reports continued improvement in his weakness. Patient denies headache or chest pain or sore throat or cough or belly pain or other review of symptoms. Patient reports eating okay and moving bowels okay. Physical Exam Physical Exam: GENERAL: Alert and oriented x3. NAD, on RA. Morbidly obese. HEENT: No pallor, no icterus. Pupils equal, round and reactive to light. Oral mucosa moist. NECK: No JVD, no neck masses. HEART: S1 and S2 heard. Regular rate and rhythm. No murmur, no gallop. RESPIRATORY SYSTEM: Normal AP diameter. No accessory muscle use. No wheezing, no crackles. ABDOMEN: Soft, bowel sounds present, nontender, no distention. CENTRAL NERVOUS SYSTEM: No facial droop. Speech is clear. Obeys simple commands. Moves extremities. EXTREMITIES: Trace edema, no erythema seen. Results & Data Results & Data ([facility]) Vital Signs (Past 12 Hours) Vital Signs Temp Pulse Resp BP BP Pulse Ox O2 Del Method 12/28/21 14:34 36.9 C 79 20 130/79 94 Room Air 12/28/21 13:39 Room Air 12/28/21 11:33 36.9 C 84 20 135/83 94 Room Air 12/28/21 07:27 36.8 C 80 20 143/94 H 94 Room Air
[2021-12-28] MEDS: RIVAROXABAN 20 MG TAB PO SCH (20:01)
[2021-12-28] MEDS: POTASSIUM CHLORIDE CRTAB 20 MEQ TABCR PO SCH (20:03)
[2021-12-29] MEDS: LEVOTHYROXINE SODIUM 125 MCG TABLET PO SCH (05:47)
[2021-12-29 08:22] LABS: Anion Gap 6 (3-11); BUN Creatinine Ratio 11.5 (10-20); Blood Urea Nitrogen 9 mg/dl (6-23); Calcium 7.9 mg/dl (8.5-10.1); Carbon Dioxide 32 mmol/L (21-32); Chloride 102 mmol/L (98-107); Creatinine Clr Calc Pharmacy 167.9 ml/min; Est GFR (African American) 112.9 ml/min; Est GFR (Non-African American) 97.4 ml/min; Glucose 92 mg/dl (70-99(Fasting)); Magnesium 1.8 mg/dl (1.7-2.4); Sodium 140 mmol/L (136-145)
[2021-12-29] MEDS: METOPROLOL SUCC 50MG EXT REL TAB PO SCH (09:12)
[2021-12-29] MEDS: AMOXICILLIN 500 MG CAP PO SCH ×2 (09:12→13:05)
[2021-12-29] MEDS: FUROSEMIDE 40 MG TAB PO SCH (09:13)
[2021-12-29] MEDS: ADVANCED PROBIOTIC 1250 MG CAPSULE PO SCH (09:13)
[2021-12-29] MEDS: dilTIAZem HCL 240 MG CAPCR PO SCH (09:13)
[2021-12-29] MEDS: FLUoxetine HCL 10 MG CAP PO SCH (09:13)
[2021-12-29] MEDS: MAGNESIUM OXIDE 400 MG TAB PO SCH (09:13)
[2021-12-29] MEDS: ESCITALOPRAM OXALATE 20 MG TAB PO SCH (09:13)
[2021-12-29] MEDS: MELOXICAM 7.5 MG TAB PO SCH (09:14)
--- NOTE | 2021-12-29 13:28 | Discharge Summary ---
Date of Service December 29, 2021 Admission HPI Per Admitting Provider This is a 61 yo M with PMHx of chronic atrial fibrillation, HTN, hypothyroidism, GERD, Morbid obesity with BMI 69.7, hx of gastric bypass ~5 years ago, who was recently hospitalized here at 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 There was a very small epidural abscess that was present at that time and he was sent home with PICC line on amipcillin IV. He retruned to the hospital on September 28, 2021 with markeldy worse back pain which radiated down both legs, and found to be in Afib with RVR. Afib was treated with cardizem drip. Due to issues with the MRI machine at [facility] they were unable to immediately we evaluate the epidural abscess. On October 01 MRI noted that he had an epidural abscess interventional radiology performed biopsy and drainage on that study patient was also noted to have multiple small abscesses along the psoas muscle and on October 02 IR proceeded to drain the largest psoas abscess. Chris galvin had again positive blood cultures for enterococci on October 03. He was referred to [facility] afterwards due to ambulatory dysfunction secondary to pain status post his epidural abscess drainage, as well as left knee and present a week prior to his original hospitalization and over that period of time had gotten particularly worse.He was discharged from [facility] on 11/19/2021. Today the patient reports that he has worsening dizziness and generalized weakness which started this morning around 5 am. Pt admits to having photosensitivity, and occipital headache worse on the left. It seemed to get better in the late morning, and now has come back. He rates it a 4/10. He denies phonophobia. Pt admits to having some heart fluttering, like he does when he's in afib, but denies and chest pain or shortness of breath. He states this is gone now. He has been sleeping in a recliner due to limited ability to get in and out of bed with the above and needing rehab still 3x per week as an outpatient. He required help by friends today to get him to the bathroom, and then was able to get himself up and walk out to the kitchen. He has had some intermittent nausea this morning, but at breakfast ate an mexican muffin thinking his sugar was possibly low (denies hx of diabetes), but this did not help. Currently he is living with his mother an father. He did take all his routinely scheduled medications today. Admission Exam Per Admitting Provider General: awake, alert, no apparent distress, + morbidly obese with BMI 69.7 Head: Normocephalic, atraumatic ENT: PERRL, EOMI, no pharyngeal exudate, mucous membranes moist Chest: Clear to auscultation, on room air, no adventitious breath sounds Cardiac: irregularly irregular, rate controlled with HR in the mid 80s, no murmur, no JVD, normal peripheral pulses, good capillary refill Abdominal: NABS x 4 quadrants, soft, nondistended, nontender to palpation, no rebound or guarding Extremities: Normal inspection, no peripheral edema or erythema, calfs nontender to palpation Psych: Normal mood and affect Neuro: AAO x 3, strength intact bilaterally and rated 5/5, no motor deficits, speech is clear, no peripheral sensory deficits Principal Diagnosis Generalized weakness Dizziness Recent history of epidural abscess/enterococcal bacteremia currently on amoxicillin 1 g p.o. 3 times daily, to maintain follow-up with ID. Discharge Exam GENERAL: Alert and oriented x3. NAD, on RA. Morbidly obese. HEENT: No pallor, no icterus. Pupils equal, round and reactive to light. Oral mucosa moist. NECK: No JVD, no neck masses. HEART: S1 and S2 heard. Regular rate and rhythm. No murmur, no gallop. RESPIRATORY SYSTEM: Normal AP diameter. No accessory muscle use. No wheezing, no crackles. ABDOMEN: Soft, bowel sounds present, nontender, no distention. CENTRAL NERVOUS SYSTEM: No facial droop. Speech is clear. Obeys simple commands. Moves extremities. EXTREMITIES: Trace edema, no erythema seen. Discharge Data Allergies Allergy/AdvReac Type Severity Reaction Status Date / Time No Known Allergies Allergy ` Verified 09/28/21 18:15 Consultations 12/25/21 12:23 ED Decision to Admit Stat 12/25/21 17:00 Consult Neurology Routine Ordered Studies 12/25/21 10:26 CT angio head w con Stat CT angio neck with con Stat CT head/brain wo con Stat 12/25/21 13:36 MR brain wo/w con Stat Hospital Course (1) Vertigo: Plan 61 yo M was managed for the following while in hospital: (1) Generalized weakness: (2) Headache: (3) Dizziness: -Continue telemetry observation. -Admitting CT head, CTA head and neck with no acute findings. -Admitting brain MRI with no acute findings. -Troponin trend x2 were negative. EKG with A. fib. Admitting echo with EF 55 to 60%, mild concentric LVH. -Neurology evaluated, appreciate recommendation. -Patient received meclizine in the ED with improvement in his dizziness, will continue meclizine as needed. -No further vertigo, patient reports improvement in his weakness, PT/OT, CM to assist with DC planning. Pt set up for Home w/ [facility]. (4) Epidural abscess: (5) Enterococcal bacteremia: Plan: - Hx of such originally diagnosed October 01. Was treated with IV ampicillin. Bacteremia was complicated by discitis and SEA. He was then admitted to [facility] and found to have multiple psoas abscesses. IR draiage was pursued and cultures were ultimately negative. End of IV ampicillin was on 12/18/21. Since then he has been on Amoxicillin 1 g PO TID until instructed to discontinue per infectious disease. Pt has been following with [facility]. Pt to f/u w/ ID as scheduled. Probiotics has been added. (6) Morbid obesity: Plan: - BMI of of 69.7 - hx of gastric bypass surgery - counselled. (7) Chronic atrial fibrillation: Plan: - Cont on xarelto - Currently rate controlled at bedside. DVT ppx: xarelto CODE: Full Code Patient being discharged to home with home with following instruction at the point of discharge: Follow-up with your primary care physician within 1 week time. Continue with your home physical therapy. Continue with your antibiotic, Augmentin follow-up with your infectious disease doctor as an outpatient. Take probiotics for the duration of your antibiotics. You are being discharged on probiotic for 30 days, contact your PCP for further prescription if you are still on antibiotic. You are being discharged on meclizine to be used as needed for dizziness. Take your medications as prescribed. Total Time Total Time Spent Total Time Spent (In Minutes): 35 Discharge Plan Discharge Items Patient Disposition: Home - Home Health Services Reason For Visit: STROKE LIKE SYMPTOMS Discharge Diagnosis: Generalized weakness Dizziness Recent history of epidural abscess/enterococcal bacteremia currently on amoxicillin 1 g p.o. 3 times daily, to maintain follow-up with ID. Activity: Resume your previous activity Non-emergency contact: Primary Care Provider Call non-emergency contact if: you have any medication questions, your symptoms worsen and your temperature is above 101 Follow-up/Referrals: Sandi Roman [Primary Care Provider] - Diet: Heart Healthy Fluids: 2000ml (8 cups) Addtl Attending Provider Instructions: Follow-up with your primary care physician within 1 week time. Continue with your home physical therapy. Continue with your antibiotic, Augmentin follow-up with your infectious disease doctor as an outpatient. Take probiotics for the duration of your antibiotics. You are being discharged on probiotic for 30 days, contact your PCP for further prescription if you are still on antibiotic. You are being discharged on meclizine to be used as needed for dizziness. Take your medications as prescribed. Pending Studies at Discharge: Yes (Admitting blood culture final results.) Stand-Alone Forms: My [facility] [email or web address], Smoking Cessation Medications and DC Order Prescriptions: New Advanced Probiotic 625 mg (10 billion cell) Capsule 2 cap PO DAILY Qty: 60 0RF meclizine 12.5 mg Tablet 12.5 mg PO BID PRN (Reason: dizziness) Qty: 30 0RF Continued potassium chloride [Klor-Con] 20 mEq packet 20 meq PO HS Rx Instructions: take at bedtime furosemide [Lasix] 40 mg tablet 40 mg PO QAM ferrous sulfate [iron] 325 mg (65 mg iron) Tablet 325 mg PO QAM trazodone 50 mg Tablet 150 mg PO QDD PRN (Reason: Sleep) Rx Instructions: take at suppertime as needed metoprolol succinate 100 mg Tablet Extended Release 24 Hr 100 mg PO BID pantoprazole 40 mg Tablet,Delayed Release (Dr/Ec) 40 mg PO DAILY PRN (Reason: Gi Upset) ergocalciferol (vitamin D2) [Vitamin D2] 50,000 unit Capsule 50,000 unit PO WK Rx Instructions: TAKE ON WEDNESDAY diltiazem HCl 240 mg Tablet Extended Release 24 Hr 240 mg PO QAM diclofenac sodium 1 % Gel 2 g TOPICAL QID PRN (Reason: Pain) Xarelto 20 mg Tablet 20 mg PO HS magnesium oxide 400 mg magnesium Tablet 400 mg PO BID levothyroxine 125 mcg tablet 125 mcg PO DAILYBB meloxicam 15 mg tablet 15 mg PO QAM escitalopram oxalate 20 mg Tablet 20 mg PO QAM oxycodone 5 mg tablet 5 mg PO Q6H PRN (Reason: pain) amoxicillin 500 mg capsule 1,000 cap PO TID fluoxetine 10 mg capsule 10 mg PO QAM Discharge Orders: Discharge Order (Routine); Ordered 12/29/21 Ordered By: Vishal Vu Admission Data Admit Date/Time: 12/26/21 14:03 Attending Provider: Vishal Vu Admit Provider: Osmin Almonte Primary Care Provider: Sandi Roman Other Providers: Gurmeet Pratt ; Hugo Cruz [facility] ; Osmin Almonte ; Dakota Sullivan
== END 2021-12-29 16:26 | disposition home health service (06) | DRG 149 ==
LOC: 2E 09:13 → ED 09:13 → SUATTDRO 13:00 → 2E 17:08 → 2N 12-27 17:10

== ENCOUNTER 2022-11-30 09:20 | Observation (INO) ==
--- NOTE | 2022-11-30 09:46 | Emergency Department Note ---
Impression & Plan Fluid overload, Chest pain ED Provider Note Name: OMA OWENS Age: 62 Sex: M Arrives Via: Ambulance Informant: Patient ED Provider: Carlos Wolf MD Chief Complaint: Chest pain and difficulty breathing Impression: As per impressions above Medical Decision Makin-year-old gentleman with a history of A-fib, CHF, obesity, hypertension, diabetes, CAD arrives for evaluation of worsening fluid overload shortness of breath and then an episode of chest pain this morning. He has no active chest pain. His EKG is essentially unremarkable. Initial troponin is within normal limits. His chest x-ray does show a mildly enlarged heart compared to previous and his exam he is clearly fluid overloaded. Laboratory work-up is otherwise benign. He was given IV Lasix but given his episode of chest pain will need a cardiac rule out as his heart score is 5. Patient was also given aspirin p.o. Throughout his stay he has no chest pain. I do not feel this is consistent with PE or dissection. At this point there is no evidence of ACS to require heart work or starting anticoagulants beyond what he is already on (Xarelto). Prior Medical Record and Triage/Nursing Notes reviewed by Me External chart reviewed by me including outpatient records Differentials:CHF, COPD, fluid overload, renal failure, electrolyte imbalance, ACS, PE, dissection, pneumonia, effusion amongst many other pathologies considered. Vital Signs: reviewed and remarkable for no significant abnormalities Interventions: Lasix 40 mg IV, aspirin 324 mg p.o. Labs:Reviewed and remarkable for moderately elevated BNP Imagin view chest x-ray as per my interpretation reveals congestive findings mildly worsened from previous chest x-ray no overt effusion pneumonia nor pneumothorax EKG:As per my interpretation. Indication chest pain. A-fib at 97 bpm without ectopy nor ischemia. QTc of 447. When compared to an EKG of December 25, 2021 t here is no significant change. Cardiac/Tele Monitoring: Cardiac Monitoring: An Order was placed for continuous cardiac monitoring. The monitor shows a rate of 100 with an afib rhythm. Consults:Ankit hospitalist Plan: Disposition:Hospitalization. Condition: Fair History of Present Illness:62-year-old gentleman with extensive past medical history including A-fib on anticoagulation, CHF, obesity, hypertension, diabetes, CAD as well as previous gastric bypass arrives for evaluation of worsening shortness of breath over the last few days. Patient states he is severely short of breath with any exertion and has been building up fluid in his legs and thighs. He notes his thighs are starting to weep more. He also notes that during exertion this morning he developed pressure-like substernal chest pain which resolved after sitting/lying down. Denies any syncope. Did have some palpitations and realized his heart rate was in the 130s earlier today. He took all of his medications including his diltiazem and Xarelto. No current chest pain nor short of breath at rest. Not having any headaches, fevers, chills, nausea, vomiting, abdominal pain, back pain, other concerning signs or symptoms. He had no medications other than his daily medications today. Past History:See Below Home Medications:See Below Allergies:nkda Vitals:Blood Pressure: 130/93, Pulse 90, RR 18, T 36.8C, O2 98% on RA Physical Exam: GENERAL: Patient is mildly anxious appearing and in minimal distress. EYES: No scleral icterus, unremarkable pupils. NECK: No masses appreciated, nomeningismus, trachea is midline. RESPIRATORY: Mild dyspnea with distant lung sounds CARDIOVASCULAR: Tacky irregular GASTROINTESTINAL: Abdomen soft, non-tender, no peritonitis.Bowel sounds posi tive.No masses appreciated. BACK: No midline tenderness, no CVA tenderness EXTREMITIES: Normal motion all extremities, no cyanosis, firm yet pitting edema bilateral lower legs NEUROLOGIC: Alert and oriented, no focal deficit appreciated SKIN: No rash, no jaundice, no diaphoresis. PSYCH: Appropriate GCS: 15 ED Course: Times/Reassessments: Patient stables heart rate is bumping around 100 with A-fib but no further chest pain or other significant concerning findings. We will give patient IV Lasix he notes a history of having to urinate a lot but we will hold off on [place] at this point until we see how he manages in an effort to avoid cauti risk Carlos Wolf MD Past Med/Surg History Medical History Chest pain Chronic anticoagulation Coronary artery disease "moderate disease per cardiac cath [facility] 2013; 50% LAD, 40% RCA" Depression Diabetes mellitus type 2, controlled Borderline blood sugar previously but no longer an issue Gram-positive bacteremia History of colonic polyps History of urinary calculi "right ureteral stone 2015" Hx of sciatica Hypertension Hypothyroidism Insomnia Iron deficiency anemia "heme + stool 2015, subsequent EGD and colonoscopy neg except for polyp" Lumbar disc herniation Lumbar radiculopathy Morbid obesity Paroxysmal atrial fibrillation Ventricular septal defect Vitamin B12 deficiency Surgical History Status post cardiac catheterization "[facility] 2014, 50% LAD, 40% RCA" Status post cystoscopy "with right ureteroscopy, laser lithotripsy, basket stone extraction" Status post gastric bypass for obesity Family History Other No pertinent family history Social History Smoking Status: Never smoker Second Hand Exposure: No; Do You Dip or Chew Tobacco: No; Tobacco Cessation Education Requested by Patient: No Hx Alcohol Use: Yes Alcohol type: hard liquor Hx Substance Use: No Preferred Language: Vietnamese Communication Ability: Effective Hearing Ability: Normal 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: No Beliefs That Will Affect Care: None marital status: Single Current Living Situation: Parent Other Information That Helps Us Care for You: No Feels Safe at Home: Yes Safety Concerns: Feels Safe At This Time Assistive Devices: Cane and Glasses Allergies Allergies Allergy/AdvReac Type Severity Reaction Status Date / Time No Known Allergies Allergy ` Verified 09/28/21 18:15 Home Meds Home Medications Medication Instructions Recorded Confirmed diclofenac sodium 1 % topical gel 2 g topical QID PRN Pain 11/24/18 11/30/22 diltiazem HCl 240 mg 240 mg PO QAM 11/24/18 11/30/22 tablet,extended release 24 hr magnesium oxide 400 mg PO BID 11/24/18 11/30/22 metoprolol succinate 100 mg 100 mg PO BID 11/24/18 11/30/22 tablet,extended release 24 hr pantoprazole 40 mg tablet,delayed 40 mg PO DAILY 11/24/18 11/30/22 release rivaroxaban 20 mg tablet (Xarelto) 20 mg PO HS 11/24/18 11/30/22 ferrous sulfate 325 mg (65 mg 325 mg PO QPM 11/28/18 11/30/22 iron) tablet (iron) furosemide 40 mg tablet (Lasix) 40 mg PO QAM PRN Edema 08/01/19 11/30/22 meloxicam 15 mg tablet 15 mg PO QAM 09/28/21 11/30/22 ampicillin 500 mg capsule 1,000 mg PO TID 11/30/22 11/30/22 fluoxetine 10 mg capsule 10 mg PO DAILY 11/30/22 11/30/22 gabapentin 300 mg capsule 300 mg PO BID 11/30/22 11/30/22 levothyroxine 75 mcg tablet 75 mcg PO DAILY 11/30/22 11/30/22 prednisone 10 mg tablet 10 mg PO DAILY 11/30/22 11/30/22 tramadol 50 mg tablet 50 mg PO BID PRN Pain 11/30/22 11/30/22 Previous Rx's Medication Instructions Recorded ergocalciferol (vitamin D2) 1,250 50,000 unit PO WK #4 caps 12/29/21 mcg (50,000 unit) capsule (Vitamin D2) potassium chloride 20 mEq oral 20 meq PO HS #30 ea 12/29/21 packet (Klor-Con) trazodone 50 mg tablet 150 mg PO QDD PRN Sleep #15 tabs 12/29/21 Results & Data (ED) Vital Signs Vital Signs - 24 hr 11/30/22 11:53 11/30/22 13:13 11/30/22 13:55 Temperature 36.4 C L Temperature Source Oral Pulse Rate 89 Pulse Rate [Apical] 92 H 102 H Pulse Rhythm [Apical] Regular Respiratory Rate 18 20 26 H Respiratory Effort / Characteristics Non-Labored Non-Labored Spontaneous SOB on Exertion Respiratory Depth Normal Normal Respiratory Pattern Regular Regular Blood Pressure 92/75 L Blood Pressure [Right Arm] 109/84 102/69 Blood Pressure Mean [Right Arm] 92 80 Blood Pressure Position [Right Arm] Sitting Pulse Oximetry 96 92 99 Oxygen Delivery Method Room Air Room Air 11/30/22 14:34 Temperature Temperature Source Pulse Rate Pulse Rate [Apical] Pulse Rhythm [Apical] Respiratory Rate Respiratory Effort / Characteristics SOB on Exertion Respiratory Depth Normal Respiratory Pattern Regular Blood Pressure Blood Pressure [Right Arm] Blood Pressure Mean [Right Arm] Blood Pressure Position [Right Arm] Pulse Oximetry Oxygen Delivery Method Room Air Laboratory Data 11/30/22 09:38 12/01/22 05:38 Lab Results 11/30/22 11/30/22 11/30/22 Range/Units 09:38 09:38 09:38 WBC 7.44 (4.8-10.8) K/ul RBC 4.79 (4.70-6.10) M/uL Hgb 13.9 L (14.0-18.0) g/dl Hct 43.3 (42.0-52.0) % MCV 90.4 (80.0-100.0) fL MCH 29.0 (25.0-34.0) pg MCHC 32.1 (32.0-36.0) g/dL RDW Std Deviation 49.1 H (36.4-46.3) fL RDW Coeff of Phu 14.9 H (11.5-14.5) % Plt Count 224 (130-400) K/uL MPV 8.8 L (9.4-12.4) fL Immature Gran % (Auto) 0.3 % Neut % (Auto) 70.6 % Lymph % (Auto) 18.0 % [place] % (Auto) 8.7 % Eos % (Auto) 1.7 % Baso % (Auto) 0.7 % Neut # (Auto) 5.25 (1.40-6.50) K/uL Lymph # (Auto) 1.34 (1.2-3.4) K/uL [place] # (Auto) 0.65 H (0.11-0.59) K/uL Eos # (Auto) 0.13 (0-0.50) K/uL Baso # (Auto) 0.05 (0-0.2) K/uL Immature Gran # (Auto) 0.02 (0.01-0.20) K/uL PT 15.1 H (9.0-12.0) Seconds INR 1.4 H (0.9-1.1) Sodium 140 (136-145) mmol/L Potassium 4.9 (3.5-5.1) mmol/L Chloride 105 (98-107) mmol/L Carbon Dioxide 29 (21-32) mmol/L Anion Gap 6 (3-11) BUN 26 H (6-23) mg/dl Creatinine 1.30 (0.6-1.4) mg/dl Est Cr Clr Drug Dosing Not Reportable Est GFR ( Amer) 67.8 ml/min Est GFR (Non-Af Amer) 58.5 ml/min BUN/Creatinine Ratio 20.0 (10-20) Glucose 99 (70-99(Fasting)) mg/dl Calcium 9.2 (8.6-10.3) mg/dl Magnesium 2.0 (1.7-2.4) mg/dl Troponin I High Sens 10.7 (0-20) pg/ml B-Natriuretic Peptide (0-100) pg/ml TSH (0.300-4.500) uIu/ml 11/30/22 11/30/22 11/30/22 Range/Units 09:38 09:38 14:57 WBC (4.8-10.8) K/ul RBC (4.70-6.10) M/uL Hgb (14.0-18.0) g/dl Hct (42.0-52.0) % MCV (80.0-100.0) fL MCH (25.0-34.0) pg MCHC (32.0-36.0) g/dL RDW Std Deviation (36.4-46.3) fL RDW Coeff of Phu (11.5-14.5) % Plt Count (130-400) K/uL MPV (9.4-12.4) fL Immature Gran % (Auto) % Neut % (Auto) % Lymph % (Auto) % [place] % (Auto) % Eos % (Auto) % Baso % (Auto) % Neut # (Auto) (1.40-6.50) K/uL Lymph # (Auto) (1.2-3.4) K/uL [place] # (Auto) (0.11-0.59) K/uL Eos # (Auto) (0-0.50) K/uL Baso # (Auto) (0-0.2) K/uL Immature Gran # (Auto) (0.01-0.20) K/uL PT (9.0-12.0) Seconds INR (0.9-1.1) Sodium (136-145) mmol/L Potassium (3.5-5.1) mmol/L Chloride (98-107) mmol/L Carbon Dioxide (21-32) mmol/L Anion Gap (3-11) BUN (6-23) mg/dl Creatinine (0.6-1.4) mg/dl Est Cr Clr Drug Dosing Est GFR ( Amer) ml/min Est GFR (Non-Af Amer) ml/min BUN/Creatinine Ratio (10-20) Glucose (70-99(Fasting)) mg/dl Calcium (8.6-10.3) mg/dl Magnesium (1.7-2.4) mg/dl Troponin I High Sens 10.3 (0-20) pg/ml B-Natriuretic Peptide 411 H (0-100) pg/ml TSH 7.466 H (0.300-4.500) uIu/ml Administered Medications Diltiazem HCl (Diltiazem Hcl 240 Mg Capcr) 240 mg PO QAM ABDI Stop: 12/31/22 08:59 Last Admin: 12/01/22 08:21 Dose: 240 mg Documented By: BELTRAN Fluoxetine HCl (Fluoxetine Hcl 10 Mg Cap) 10 mg PO DAILY ABDI Stop: 12/31/22 08:59 Last Admin: 12/01/22 08:21 Dose: 10 mg Documented By: BELTRAN Furosemide (Furosemide 40 Mg/4 Ml Vial) 40 mg IV BID ABDI Stop: 12/30/22 20:59 Last Admin: 12/01/22 08:21 Dose: 40 mg Documented By: Admin: 11/30/22 20:44 Dose: 40 mg Documented By: DANIEL Gabapentin (Gabapentin 300 Mg Cap) 300 mg PO BID ABDI Stop: 12/30/22 20:59 Last Admin: 12/01/22 08:21 Dose: 300 mg Documented By: Admin: 11/30/22 20:45 Dose: 300 mg Documented By: DANIEL Ampicillin Sodium 1,000 mg/ (Sodium Chloride) 50 mls @ 100 mls/hr IV Q8H ABDI Stop: 12/30/22 19:59 Last Infusion: 12/01/22 03:36 Dose: 0 mls/hr Documented By: Admin: 12/01/22 03:06 Dose: 100 mls/hr Documented By: Infusion: 11/30/22 21:14 Dose: 0 mls/hr Documented By: Admin: 11/30/22 20:44 Dose: 100 mls/hr Documented By: ABL Levothyroxine Sodium (Levothyroxine Sodium 75 Mcg Tablet) 75 mcg PO DAILYBB ABDI Stop: 12/31/22 06:29 Last Admin: 12/01/22 05:40 Dose: 75 mcg Documented By: DANIEL Magnesium Oxide (Magnesium Oxide 400 Mg Tab) 400 mg PO BID ABDI Stop: 12/30/22 20:59 Last Admin: 12/01/22 08:21 Dose: 400 mg Documented By: Admin: 11/30/22 20:45 Dose: 400 mg Documented By: DANIEL Metoprolol Succinate (Metoprolol Succ 50mg Ext Rel Tab) 100 mg PO BID ABDI Stop: 12/30/22 20:59 Last Admin: 12/01/22 09:45 Dose: 100 mg Documented By: Admin: 11/30/22 20:45 Dose: 100 mg Documented By: DANIEL Pantoprazole Sodium (Pantoprazole 40 Mg Tab) 40 mg PO DAILY ABDI Stop: 12/31/22 08:59 Last Admin: 12/01/22 08:21 Dose: 40 mg Documented By: BELTRAN Potassium Chloride (Potassium Chloride Pwd 20 Meq Pack) 20 meq PO HS ABDI Stop: 12/30/22 20:59 Last Admin: 11/30/22 20:46 Dose: 20 meq Documented By: DANIEL Prednisone (Prednisone 10 Mg Tablet) 10 mg PO DAILY ABDI Stop: 12/31/22 08:59 Last Admin: 12/01/22 08:21 Dose: 10 mg Documented By: BELTRAN Rivaroxaban (Rivaroxaban 20 Mg Tab) 20 mg PO HS ABDI Stop: 12/30/22 20:59 Last Admin: 11/30/22 20:46 Dose: 20 mg Documented By: DANIEL Discontinued Medications Aspirin (Aspirin 81 Mg Chew) 324 mg PO NOW STA Stop: 11/30/22 10:35 Last Admin: 11/30/22 11:02 Dose: 324 mg Documented By: ANTON Furosemide (Furosemide 40 Mg/4 Ml Vial) 40 mg IV ONE ONE Stop: 11/30/22 10:35 Last Admin: 11/30/22 11:02 Dose: 40 mg Documented By: ANTON Discharge Plan Visit Data Chief Complaint: Shortness of Breath/Dyspnea Stated Complaint: SOB, FLUID RETENTION ED Provider: Carlos Wolf Discharge Problem: Fluid overload, Chest pain Patient Disposition: Admitted As Inpatient Discharge Instructions Interventions: ED Discharge Assessment Last Done: 11/30/22 13:13 Fluid overload Qualifiers: Hypervolemia type: unspecified Qualified Code(s): E87.70 - Fluid overload, unspecified Chest pain Qualifiers: Chest pain type: unspecified Qualified Code(s): R07.9 - Chest pain, unspecified
[2022-11-30 09:56] LABS: Basophils # (auto) 0.05 K/uL (0-0.2); Basophils % (auto) 0.7 %; Eosinophils # (auto) 0.13 K/uL (0-0.50); Eosinophils % (auto) 1.7 %; Hematocrit (blood only) 43.3 % (42.0-52.0); Hemoglobin 13.9 g/dl (14.0-18.0); Immature Granulocytes # (auto) 0.02 K/uL (0.01-0.20); Immature Granulocytes % (auto) 0.3 %; Lymphocytes # (auto) 1.34 K/uL (1.2-3.4); Mean Corpuscular Hgb Conc 32.1 g/dL (32.0-36.0); Mean Corpuscular Volume 90.4 fL (80.0-100.0); Mean Platelet Volume 8.8 fL (9.4-12.4); Monocytes # (auto) 0.65 K/uL (0.11-0.59); Monocytes % (auto) 8.7 %; Neutrophils # (auto) 5.25 K/uL (1.40-6.50); Neutrophils % (auto) 70.6 %; Platelet Count 224 K/uL (130-400); RDW Coefficient of Variation 14.9 % (11.5-14.5); RDW Standard Deviation 49.1 fL (36.4-46.3); Red Blood Count 4.79 M/uL (4.70-6.10); White Blood Count 7.44 K/ul (4.8-10.8)
[2022-11-30 10:13] LABS: Anion Gap 6 (3-11); Blood Urea Nitrogen 26 mg/dl (6-23); Calcium 9.2 mg/dl (8.6-10.3); Carbon Dioxide 29 mmol/L (21-32); Chloride 105 mmol/L (98-107); Est GFR (African American) 67.8 ml/min; Est GFR (Non-African American) 58.5 ml/min; Glucose 99 mg/dl (70-99(Fasting)); Potassium 4.9 mmol/L (3.5-5.1); Sodium 140 mmol/L (136-145)
[2022-11-30 10:19] LABS: Troponin I High Sensitivity 10.7 pg/ml (0-20)
[2022-11-30 10:21] LABS: INR 1.4 (0.9-1.1); Prothrombin Time 15.1 Seconds (9.0-12.0)
[2022-11-30] MEDS ORDERED: ASPIRIN 81 MG CHEW PO STA (10:34)
[2022-11-30] MEDS ORDERED: FUROSEMIDE 40 MG/4 ML VIAL IV ONE (10:34)
--- NOTE | 2022-11-30 11:03 | XRay Report ---
XR chest 1V portable HISTORY: 62 years-old Male shob acute chest pain shortness of breath COMPARISON: 09/19/2021 TECHNIQUE: AP view the chest FINDINGS: Cardiac silhouette is enlarged. No pneumothorax, pleural effusion, airspace consolidation or pulmonar y edema. Bones appear grossly intact. IMPRESSION: Cardiomegaly without acute process. ACT 112: Negative or not required by law. The above report was generated using voice recognition software. It may contain grammatical, syntax o r spelling errors. Electronically signed by: Mack Andrade M.D. 11/30/2022 11:02 AM
--- NOTE | 2022-11-30 11:33 | History & Physical Report ---
Date of Service November 30, 2022 Assessment & Plan (1) Acute heart failure with preserved ejection fraction (HFpEF): Plan: 62 y/o male with a history of atrial fibrillation on chronic AC, HTN, hypothyroidism, GERD, morbid obesity, s/p gastric bypass, osteomyelitis and discitis L2-L3 in 2021, CAD, and sleep apnea who presents to the ED today via EMS due to worsening shortness of breath with any exertion x 3 days. Also notes peripheral edema and transient substernal chest discomfort today. He is taking furosemide PRN with only four doses in the last week, last dose two days ago in spite of worsening edema and ABURTO. Chest x-ray and EKG personally reviewed. Pt r eports no recent titration of cardiac meds - last outpt visit appears to have been in 2018. He received furosemide 40 mg IV x 1 in the ED. Also noted to have a mild MINI with creatinine 1.3 (baseline 0.7-0.8). - Admit to PCU - Trend troponin, EKG in AM - Update ECHO - Consult cardiology for additional recommendations - Continue IV diuresis with furosemide 40 mg BID - Daily weights, monitor Is and Os - Follow labs, specifically electrolytes and kidney function in view of diuresis - Consult wound care due to heel wound, intertrigo - started miconazole powder (2) Atrial fibrillation with RVR: Plan: See plan for #1 (3) Hypothyroidism: Plan: TSH elevated in ED - continue same levothyroxine dose for now, repeat TFTs as outpatient (4) Hypertension: (5) Morbid obesity: (6) Coronary artery disease: (7) Anticoagulated: Plan: Continue Xarelto (8) Current chronic use of systemic steroids: Plan: Continue chronic prednisone Plan Of note, pt has continued on chronic ampicillin since discharge last summer for discitis. Continue ampicillin for now. Consult ID for recommendations/comment on need for chronic suppressive therapy. Pt seen and reviewed with collaborating physician, Dr. Murray. Plan of care discussed and as outlined above Code Status: Full Code DVT Prophylaxis: on chronic Xarelto Danny Blackmon PA-C History of Present Illness Chief Complaint: Worsening shortness of breath with exertion Primary Care Provider: Sandi Roman This is a 62 y/o male with a history of atrial fibrillation on chronic AC, HTN, hypothyroidism, GERD, morbid obesity, s/p gastric bypass, osteomyelitis and discitis L2-L3 in 2021, CAD, and sleep apnea who presents to the ED today via EMS due to worsening shortness of breath with any exertion x 3 days. On Wednesday, he noted the abrupt onset of fatigue, ABURTO, wheezing with walking. On Wednesday, he felt okay as long as sitting but continued with ABURTO with any activity. Took off yesterday from work to rest but no improvement in symptoms. Today, he reports that breathing is fine if he is lying still but even standing causes shortness of breath, wheezing, palpitations and racing heart. He noted transient substernal chest discomfort this morning with exertion, relieved by rest. Currently, he is chest pain free. He does have a hx of afib with a rate of 90-100 at baseline. Today, he noted a rate in the 130s at home and EMS noted a rate of 140. He is on Xarelto chronically for AC - denies prior hx of CVA or clot. He has noted increased frequency is episodes of palpitations over the last week. Has some dizziness with standing but this resolves quickly. No dizziness at rest. He denies significant cough, ST, congestion, runny nose, MENG, fevers, chills, sweats. +fatigue but ongoing issue. Increased edema in LE since last week. He uses furosemide 40 mg daily PRN for fluid - he has taken four doses over the last week with the last dose being two days ago (Wednesday). He also reports a rash in the bilateral groin area with associated pain but no itching. He has been using clotrimazole without significant relief. Denies dysuria, hematuria, change in urinary frequency. Last ECHO in 01/02 - EF 55-60%, mild concentric LVH, mild MR, mild TR. He reports [facility] but has not been seen recently - reviewed outpatient recor ds and last visit appears to have been in 2018. Pt denies recent adjustment of cardiac meds. He is taking ampicillin chronically for hx of discitis and prednisone daily due to arthritis. Does not appear to have followed up with ID after discharge last summer for the discitis. Allergies Allergy/AdvReac Type Severity Reaction Status Date / Time No Known Allergies Allergy ` Verified 09/28/21 18:15 Home Medications Medication Instructions Recorded Confirmed Type diclofenac sodium 1 % topical gel 2 g topical QID PRN Pain 11/24/18 11/30/22 History diltiazem HCl 240 mg 240 mg PO QAM 11/24/18 11/30/22 History tablet,extended release 24 hr magnesium oxide 400 mg PO BID 11/24/18 11/30/22 History metoprolol succinate 100 mg 100 mg PO BID 11/24/18 11/30/22 History tablet,extended release 24 hr pantoprazole 40 mg tablet,delayed 40 mg PO DAILY 11/24/18 11/30/22 History release rivaroxaban 20 mg tablet (Xarelto) 20 mg PO HS 11/24/18 11/30/22 History ferrous sulfate 325 mg (65 mg 325 mg PO QPM 11/28/18 11/30/22 History iron) tablet (iron) furosemide 40 mg tablet (Lasix) 40 mg PO QAM PRN Edema 08/01/19 11/30/22 History meloxicam 15 mg tablet 15 mg PO QAM 09/28/21 11/30/22 History ergocalciferol (vitamin D2) 1,250 50,000 unit PO WK #4 caps 12/29/21 11/30/22 Rx mcg (50,000 unit) capsule (Vitamin D2) potassium chloride 20 mEq oral 20 meq PO HS #30 ea 12/29/21 11/30/22 Rx packet (Klor-Con) trazodone 50 mg tablet 150 mg PO QDD PRN Sleep #15 tabs 12/29/21 11/30/22 Rx ampicillin 500 mg capsule 1,000 mg PO TID 11/30/22 11/30/22 History fluoxetine 10 mg capsule 10 mg PO DAILY 11/30/22 11/30/22 History gabapentin 300 mg capsule 300 mg PO BID 11/30/22 11/30/22 History levothyroxine 75 mcg tablet 75 mcg PO DAILY 11/30/22 11/30/22 History prednisone 10 mg tablet 10 mg PO DAILY 11/30/22 11/30/22 History tramadol 50 mg tablet 50 mg PO BID PRN Pain 11/30/22 11/30/22 History Past Med/Surg History Medical History Chest pain Chronic anticoagulation Coronary artery disease "moderate disease per cardiac cath [facility] 2013; 50% LAD, 40% RCA" Depression Diabetes mellitus type 2, controlled Borderline blood sugar previously but no longer an issue Gram-positive bacteremia History of colonic polyps History of urinary calculi "right ureteral stone 2015" Hx of sciatica Hypertension Hypothyroidism Insomnia Iron deficiency anemia "heme + stool 2015, subsequent EGD and colonoscopy neg except for polyp" Lumbar disc herniation Lumbar radiculopathy Morbid obesity Paroxysmal atrial fibrillation Ventricular septal defect Vitamin B12 deficiency Surgical History Status post cardiac catheterization "[facility] 2014, 50% LAD, 40% RCA" Status post cystoscopy "with right ureteroscopy, laser lithotripsy, basket stone extraction" Status post gastric bypass for obesity Family History Other No pertinent family history Social History Smoking Status: Never smoker Second Hand Exposure: No; Do You Dip or Chew Tobacco: No; Tobacco Cessation Education Requested by Patient: No Hx Alcohol Use: Yes Alcohol type: hard liquor Hx Substance Use: No Preferred Language: Maori Communication Ability: Effective Hearing Ability: Normal 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 Beliefs That Will Affect Care: None marital status: Single Current Living Situation: Parent Other Information That Helps Us Care for You: No Feels Safe at Home: Yes Safety Concerns: Feels Safe At This Time Assistive Devices: Cane and Glasses Review of Systems Review of Systems: All systems reviewed & are unremarkable except as noted in HPI & below Constitutional: + fatigue; no fever and no chills Eyes: no diplopia Ear, Nose, Mouth, Throat: no nasal congestion, no nasal discharge and no sore throat Respiratory: as per Subjective / HPI; no cough Cardiovascular: as per Subjective / HPI Gastrointestinal: no abdominal pain, no nausea, no vomiting, no constipation, no diarrhea/loose stools and no blood in stools Genitourinary: no dysuria, no urinary frequency, no decreased urination or no hematuria Musculoskeletal: + joint pain (chronic issues with knee pain - improved since injections last wk) Integumentary: + rash (bilateral groin x 1 wk) Neurologic: no headache(s) and no confusion Psychiatric: no depression and no anxiety Physical Exam Constitutional: + morbidly obese; no acute distress Eyes: + anicteric sclerae Neck: trachea midline Respiratory: no respiratory distress and no labored breathing Auscultation: + diminished lung sounds Cardiovascular: Rate/Rhythm: + tachycardic and + irregularly irregular Vessels: radial pulses present Extremities: + edema (bilateral LE) Gastrointestinal (Abdomen): Inspection/Auscultation: normal bowel sounds and + significant pannus Percussion/Palpation: abdomen soft; abdomen nontender Musculoskeletal: Head/Neck/Chest: normocephalic, head atraumatic and neck supple Skin: +erythematous rash with erosions in bilateral groin area Neurologic: moves all extremities; not confused Psychiatric: A+Ox3, euthymic affect Results & Data Results & Data Vital Signs (Past 12 Hours) Vital Signs Temp Pulse Resp BP Pulse Ox O2 Del Method 11/30/22 09:43 104 H 11/30/22 09:35 Room Air 11/30/22 09:27 36.8 C 90 18 130/93 98 Room Air Laboratory Results Laboratory Results - last 24 hr 11/30/22 11/30/22 11/30/22 09:38 09:38 09:38 WBC 7.44 RBC 4.79 Hgb 13.9 L Hct 43.3 MCV 90.4 MCH 29.0 MCHC 32.1 RDW Std Deviation 49.1 H RDW Coeff of Phu 14.9 H Plt Count 224 MPV 8.8 L Immature Gran % (Auto) 0.3 Neut % (Auto) 70.6 Lymph % (Auto) 18.0 [place] % (Auto) 8.7 Eos % (Auto) 1.7 Baso % (Auto) 0.7 Neut # (Auto) 5.25 Lymph # (Auto) 1.34 [place] # (Auto) 0.65 H Eos # (Auto) 0.13 Baso # (Auto) 0.05 Immature Gran # (Auto) 0.02 PT 15.1 H INR 1.4 H Sodium 140 Potassium 4.9 Chloride 105 Carbon Dioxide 29 Anion Gap 6 BUN 26 H Creatinine 1.30 Est Cr Clr Drug Dosing Not Reportable Est GFR ( Amer) 67.8 Est GFR (Non-Af Amer) 58.5 BUN/Creatinine Ratio 20.0 Glucose 99 Calcium 9.2 Magnesium 2.0 Troponin I High Sens 10.7 B-Natriuretic Peptide TSH SARS-CoV-2, RNA, NAAT 11/30/22 11/30/22 11/30/22 09:38 09:38 Unknown WBC RBC Hgb Hct MCV MCH MCHC RDW Std Deviation RDW Coeff of Phu Plt Count MPV Immature Gran % (Auto) Neut % (Auto) Lymph % (Auto) [place] % (Auto) Eos % (Auto) Baso % (Auto) Neut # (Auto) Lymph # (Auto) [place] # (Auto) Eos # (Auto) Baso # (Auto) Immature Gran # (Auto) PT INR Sodium Potassium Chloride Carbon Dioxide Anion Gap BUN Creatinine Est Cr Clr Drug Dosing Est GFR ( Amer) Est GFR (Non-Af Amer) BUN/Creatinine Ratio Glucose Calcium Magnesium Troponin I High Sens B-Natriuretic Peptide 411 H TSH 7.466 H SARS-CoV-2, RNA, NAAT NEGATIVE Diagnostic Findings Chest X-Ray 11/30/22 09:35 XR chest 1V portable HISTORY: 62 years-old Male shob acute chest pain shortness of breath COMPARISON: 09/19/2021 TECHNIQUE: AP view the chest FINDINGS: Cardiac silhouette is enlarged. No pneumothorax, pleural effusion, airspace consolidation or pulmonary edema. Bones appear grossly intact. IMPRESSION: Cardiomegaly without acute process. ACT 112: Negative or not required by law. The above report was generated using voice recognition software. It may contain grammatical, syntax or spelling errors. Electronically signed by: Mack Andrade M.D. 11/30/2022 11:02 AM Medications Administered Discontinued Medications Aspirin (Aspirin 81 Mg Chew) 324 mg PO NOW STA Stop: 11/30/22 10:35 Last Admin: 11/30/22 11:02 Dose: 324 mg Documented By: ANTON Furosemide (Furosemide 40 Mg/4 Ml Vial) 40 mg IV ONE ONE Stop: 11/30/22 10:35 Last Admin: 11/30/22 11:02 Dose: 40 mg Documented By: ANTON Supervising Physician Co-Signing Physician Notes I have seen and examined the patient and have discussed the case with the provider above. I agree with the assessment and plan as stated with the following exceptions. 62-year-old man presents with 20 lbs weight gain and shortness of breath. He reports he is always in afib but this morning he felt his heart racing, and per EMS HR was in the 130s. He reports a history of using Lasix on a PRN basis, and when he started feeling more bloated, he began using this every day, which was about one week ago. He is currently denying any chest discomfort. +orthopnea in history. On exam he is morbidly obese with HR 92 and irregular. S1/2 heard with no murmurs. Cardiac exam reveals irregular rhythm. 2+ edema in the abdominal body wall and lower extremities bilaterally. Multiple skin folds with erythema in them have been addressed by nursing with powder and cleansing since arriving on the floor. Lungs are clear to auscultation throughout. He is not requiring oxygen at rest but does appear slightly dyspneic wtih minimal movement. Workup today includes a CXR which is clear. BMP reveals elevation in BUN/Creat from baseline (9/0.78) which is currently 26/1.30. BNP is elevated at 411. HS trop repeated x 2 is normal. EKG reveals afib, 97, RBBB. 1. Acute heart failure with preserved EF 2. Afib with RVR 3. Morbid obesity 4. Hypothyroidism 5. chronic steroid use 62 yo obese man with known h/o afib presents with acute heart failure syndrome progressive over the past week reporting dyspnea with exertion, 20 lb weight gain, chest discomfort, and swelling. He was given Lasix 40mg IV in the ER and has already put out 2L with valencia catheter in place. He reports that his symptoms have improved and he no longer has chest discomfort, which was likely not associated with ACS. Echo is pending and we will cont Lasix 40mg IV BID for now pending cardiology consultation. Cont with daily standing weights, daily BMP to monitor kidney function in response to Lasix, and low salt diet. Encourage ambulation as tolerated. Heart rate is better controlled and would continue with home diltiazem for rate control. Wound RN to evaluate his skin. TSH slightly elevated to 7. Cont home levothyroxine without changes at this time and repeat TFTs in 6-8 weeks. DO Trevor
--- NOTE | 2022-11-30 14:02 | Electrocardiogram Report ---
Test Reason : Blood Pressure : / mmHG Vent. Rate : 097 BPM Atrial Rate : 000 BPM P-R Int : 000 ms QRS Dur : 128 ms QT Int : 352 ms P-R-T Axes : 000 134 009 degrees QTc Int : 447 ms Poor data quality, interpretation may be adversely affected Atrial fibrillation Right bundle branch block Abnormal ECG When compared with ECG of 25-DEC-2021 10:03, Nonspecific T wave abnormality has replaced inverted T waves in Anterior leads Confirmed by Marciano Adan ([id number]) on 11/30/2022 2:02:35 PM Referred By: Confirmed By:Marciano Adan
[2022-11-30] MEDS ORDERED: ACETAMINOPHEN 325 MG TAB PO PRN (14:31)
[2022-11-30] MEDS ORDERED: traZODone HCL 50 MG TAB PO PRN (14:31)
[2022-11-30] MEDS ORDERED: MICONAZOLE NITRATE POWDER 85 GM EXT PRN (15:26)
--- NOTE | 2022-11-30 15:41 | Communication Note ---
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 He reports he is always in afib but this morning he felt his heart racing, and per EMS HR was in the 130s. He reports a history of using Lasix on a PRN basis, and when he started feeling more bloated, he began using this every day, which was about one week ago. He is currently denying any chest discomfort. +orthopnea in history. On exam he is morbidly obese with HR 92 and irregular. S1/2 heard with no murmurs. Cardiac exam reveals irregular rhythm. 2+ edema in the abdominal body wall and lower extremities bilaterally. Multiple skin folds with erythema in them have been addressed by nursing with powder and cleansing since arriving on the floor. Lungs are clear to auscultation throughout. He is not requiring oxygen at rest but does appear slightly dyspneic wtih minimal movement. Workup today includes a CXR which is clear. BMP reveals elevation in BUN/Creat from baseline (9/0.78) which is currently 26/1.30. BNP is elevated at 411. HS trop repeated x 2 is normal. EKG reveals afib, 97, RBBB. 1. Acute heart failure with preserved EF 2. Afib with RVR 3. Morbid obesity 4. Hypothyroidism 5. chronic steroid use 62 yo obese man with known h/o afib presents with acute heart failure syndrome progressive over the past week reporting dyspnea with exertion, 20 lb weight gain, chest discomfort, and swelling. He was given Lasix 40mg IV in the ER and has already put out 2L with valencia catheter in place. He reports that his sympt oms have improved and he no longer has chest discomfort, which was likely not associated with ACS. Echo is pending and we will cont Lasix 40mg IV BID for now pending cardiology consultation. Cont with daily standing weights, daily BMP to monitor kidney function in response to Lasix, and low salt diet. Encourage ambulation as tolerated. Heart rate is better controlled and would continue with home diltiazem for rate control. Wound RN to evaluate his skin. TSH slightly elevated to 7. Cont home levothyroxine without changes at this time and repeat TFTs in 6-8 weeks. DO Trevor
[2022-11-30] MEDS ORDERED: AMPICILLIN SOD 1 GM VIAL IV SCH (18:45)
[2022-11-30] MEDS: FUROSEMIDE 40 MG/4 ML VIAL IV SCH (20:44)
[2022-11-30] MEDS: AMPICILLIN 1,000 MG in SODIUM CHLOR 0.9% AD-VAN 50 ML IV SCH (20:44)
[2022-11-30] MEDS: MAGNESIUM OXIDE 400 MG TAB PO SCH (20:45)
[2022-11-30] MEDS: METOPROLOL SUCC 50MG EXT REL TAB PO SCH (20:45)
[2022-11-30] MEDS: GABAPENTIN 300 MG CAP PO SCH (20:45)
[2022-11-30] MEDS: RIVAROXABAN 20 MG TAB PO SCH (20:46)
[2022-11-30] MEDS ORDERED: FERROUS SULFATE 325 MG TAB PO SCH (21:00)
[2022-11-30] MEDS ORDERED: AMPICILLIN 500 MG PO SCH (21:00)
[2022-11-30] MEDS ORDERED: POTASSIUM CHLORIDE PWD 20 MEQ PACK PO SCH (21:00)
[2022-12-01] MEDS: AMPICILLIN 1,000 MG in SODIUM CHLOR 0.9% AD-VAN 50 ML IV SCH ×2 (03:06→12:36)
[2022-12-01] MEDS: LEVOTHYROXINE SODIUM 75 MCG TABLET PO SCH (05:40)
[2022-12-01 06:13] LABS: BUN Creatinine Ratio 19.6 (10-20); Calcium 8.5 mg/dl (8.6-10.3); Creatinine Clr Calc Pharmacy 122.7 ml/min; Est GFR (African American) 85.8 ml/min; Magnesium 1.7 mg/dl (1.7-2.4)
[2022-12-01] MEDS: MAGNESIUM OXIDE 400 MG TAB PO SCH ×2 (08:21→20:14)
[2022-12-01] MEDS: FUROSEMIDE 40 MG/4 ML VIAL IV SCH ×2 (08:21→20:14)
[2022-12-01] MEDS: predniSONE 10 MG TABLET PO SCH (08:21)
[2022-12-01] MEDS: PANTOprazole 40 MG TAB PO SCH (08:21)
[2022-12-01] MEDS: GABAPENTIN 300 MG CAP PO SCH ×2 (08:21→20:14)
[2022-12-01] MEDS: FLUoxetine HCL 10 MG CAP PO SCH (08:21)
[2022-12-01] MEDS ORDERED: dilTIAZem HCL 240 MG CAPCR PO SCH (09:00)
--- NOTE | 2022-12-01 09:08 | Cardiology Consultation ---
Date of Consultation December 01, 2022 Assessment & Plan (1) Acute heart failure with preserved ejection fraction (HFpEF): (2) Chronic atrial fibrillation: Plan Patient admitted for acute HFpEF after non compliance with oral diuretics over the last few weeks. Evidence of volume overload on exam with worsening SOB, orthopnea, edema. Continue IV diuretics 40 mg BID today. Monitor I+O's. Fluid restriction of 1500 ml Daily weight, standing scale. Monitor renal function and electrolytes. Atrial fibrillation, persistent/chronic. Initially his HR's were elevated, but improved with oral home medication including metoprolol and diltiazem. Chronic anticoagulation with Xarelto 20 mg daily Echo during this admission with preserved LVEF, dilated RV with reduced function. RV dysfunction likely due to underlying PHYLLIS, not treated. Patient reports history of intolerance of CPAP. Recommend nocturnal oximetry and consider repeat sleep med evaluation. Case discussed with Dr. Milan. I spent a total of 55 minutes on the date of service in preparation, delivery, and documentation of the care provided to this patient, excluding any time spent in the performance of separately billed services. Aishwarya Peterson PA-C Department of Cardiology, [facility] This chart was completed in part utilizing Speech Voice Recognition Software. Grammatical errors, random word insertions, pronoun errors, and incomplete sentences are an occasional consequence of this system due to software limitations, ambient noise, and hardware issues. Any formal questions or concerns about the content, text, or information contained within the body of this dictation should be directly addressed to the provider for clarification. Supervising Physician Co-Signing Physician Notes 62-year-old patient admitted with dyspnea, weight gain, edema, and noncompliance with diuretic therapy for more than 2 weeks. Treated with IV furosemide on admission. Fluid balance negative more than 5 L. Feeling much better currently . Edema persist. Chest discomfort noted on presentation which has resolved. PE: VSS. Gen: NAD, AAO x3. Heart: Regular rhythm, normal S1-S2. No murmur appreciated. Lungs: Diminished breath sounds at the bases. Scant Rales at the bases bilateral. Abdomen: Obese, pitting edema noted. Extremities: 2+ edema to the waist. A/P: Agree with above PAAhmet history, physical exam, assessment and plan. 62-year-old patient admitted with acute decompensated heart failure in the setting of rapid atrial fibrillation and noncompliance with diuretic therapy. Discontinue IV diltiazem infusion. Continue oral metoprolol at this time. Echocardiogram revealing preserved LV function with RV dilatation and dysfunction. Continue IV diuretic therapy. Monitor daily weight, fluid balance, GFR, and electrolytes. Patient will likely require several days of IV diuresis to achieve dry weight. Importance of compliance with medical therapies reviewed. All questions answered to patient's satisfaction. History of Present Illness Reason for Consultation: CHF Requesting Physician: Dr. Almonte Attending Physician: Dr. milan History of Present Illness Patient is a 62 year old male, previously known to [facility] cardiology, last visit in 2018, Dr. Frey. History includes: 1. Morbid obesity 2. Chronic atrial fibrillation 3. 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 During this time, he was not taking his lasix as frequently and began to develop worsening LE edema, weight gain of possibly 20 lbs and worsening SOB. After noting these issues, patient resumed furosemide 40 mg daily, but symptoms only progressed, so he came to the ER for evaluation/treatment. Initially HR's were borderline elevated with persistent afib, but at time of consult, afib rates have improved He has received several doses of IV diuretics with good outputs. HS troponin has been negative since admission. At time of consult, patient resting in bed feeling well. Reports great improvement in his SOB since admission. Edema improving. Denies chest pain. HR's also improved. Slept better last evening. Allergies Allergy/AdvReac Type Severity Reaction Status Date / Time No Known Allergies Allergy ` Verified 09/28/21 18:15 Home Medications Medication Instructions Recorded Confirmed Type diclofenac sodium 1 % topical gel 2 g topical QID PRN Pain 11/24/18 11/30/22 History diltiazem HCl 240 mg 240 mg PO QAM 11/24/18 11/30/22 History tablet,extended release 24 hr magnesium oxide 400 mg PO BID 11/24/18 11/30/22 History metoprolol succinate 100 mg 100 mg PO BID 11/24/18 11/30/22 History tablet,extended release 24 hr pantoprazole 40 mg tablet,delayed 40 mg PO DAILY 11/24/18 11/30/22 History release rivaroxaban 20 mg tablet (Xarelto) 20 mg PO HS 11/24/18 11/30/22 History ferrous sulfate 325 mg (65 mg 325 mg PO QPM 11/28/18 11/30/22 History iron) tablet (iron) furosemide 40 mg tablet (Lasix) 40 mg PO QAM PRN Edema 08/01/19 11/30/22 History meloxicam 15 mg tablet 15 mg PO QAM 09/28/21 11/30/22 History ergocalciferol (vitamin D2) 1,250 50,000 unit PO WK #4 caps 12/29/21 11/30/22 Rx mcg (50,000 unit) capsule (Vitamin D2) potassium chloride 20 mEq oral 20 meq PO HS #30 ea 12/29/21 11/30/22 Rx packet (Klor-Con) trazodone 50 mg tablet 150 mg PO QDD PRN Sleep #15 tabs 12/29/21 11/30/22 Rx ampicillin 500 mg capsule 1,000 mg PO TID 11/30/22 11/30/22 History fluoxetine 10 mg capsule 10 mg PO DAILY 11/30/22 11/30/22 History gabapentin 300 mg capsule 300 mg PO BID 11/30/22 11/30/22 History levothyroxine 75 mcg tablet 75 mcg PO DAILY 11/30/22 11/30/22 History prednisone 10 mg tablet 10 mg PO DAILY 11/30/22 11/30/22 History tramadol 50 mg tablet 50 mg PO BID PRN Pain 11/30/22 11/30/22 History Patient History Medical History Chest pain Chronic anticoagulation Coronary artery disease "moderate disease per cardiac cath [facility] 2013; 50% LAD, 40% RCA" Depression Diabetes mellitus type 2, controlled Borderline blood sugar previously but no longer an issue Gram-positive bacteremia History of colonic polyps History of urinary calculi "right ureteral stone 2015" Hx of sciatica Hypertension Hypothyroidism Insomnia Iron deficiency anemia "heme + stool 2015, subsequent EGD and colonoscopy neg except for polyp" Lumbar disc herniation Lumbar radiculopathy Morbid obesity Paroxysmal atrial fibrillation Ventricular septal defect Vitamin B12 deficiency Surgical History Status post cardiac catheterization "2013, 50% LAD, 40% RCA" Status post cystoscopy "with right ureteroscopy, laser lithotripsy, basket stone extraction" Status post gastric bypass for obesity Family History Other No pertinent family history Social History Smoking Status: Never smoker Second Hand Exposure: No; Do You Dip or Chew Tobacco: No; Tobacco Cessation Education Requested by Patient: No Hx Alcohol Use: Yes Alcohol type: hard liquor Hx Substance Use: No Preferred Language: British Communication Ability: Effective Hearing Ability: Normal 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 Beliefs That Will Affect Care: None marital status: Single Current Living Situation: Parent Other Information That Helps Us Care for You: No Feels Safe at Home: Yes Safety Concerns: Feels Safe At This Time Assistive Devices: Cane Review of Systems Review of Systems: All systems reviewed & are unremarkable except as noted in HPI & below Physical Exam Constitutional: WD/WN, vitals as above + morbidly obese Neck: + thick neck Respiratory: normal respiratory effort Auscultation: + diminished lung sounds; no crackles and no rales Cardiovascular: Rate/Rhythm: + irregularly irregular Heart Sounds: no murmur (distant heart sounds) Extremities: + edema (1-2+ LE edema with stasis changes) Gastrointestinal (Abdomen): normal bowel sounds, soft, nontender, no h epatosplenomegaly Neurologic: PERRL, EOMI, accommodation nl, no face palsy, no dysarthria Results & Data Vital Signs (Past 12 Hours) Vital Signs Temp Pulse Pulse Resp BP Pulse Ox O2 Del Method 12/01/22 08:00 36.5 C 94 H 21 90/61 L 95 Room Air 12/01/22 04:15 36.7 C 90 18 103/62 94 Room Air 12/01/22 00:30 87 11/30/22 23:31 36.6 C 99 H 20 101/68 95 Room Air Laboratory Results Cardiac Enzymes 11/30/22 11/30/22 11/30/22 Range/Units 09:38 09:38 14:57 Troponin I High Sens 10.7 10.3 (0-20) pg/ml B-Natriuretic Peptide 411 H (0-100) pg/ml Coagulation 11/30/22 11/30/22 Range/Units 09:38 09:38 PT 15.1 H (9.0-12.0) Seconds B-Natriuretic Peptide 411 H (0-100) pg/ml CBC 11/30/22 Range/Units 09:38 WBC 7.44 (4.8-10.8) K/ul RBC 4.79 (4.70-6.10) M/uL Hgb 13.9 L (14.0-18.0) g/dl Hct 43.3 (42.0-52.0) % Plt Count 224 (130-400) K/uL Neut # (Auto) 5.25 (1.40-6.50) K/uL Lymph # (Auto) 1.34 (1.2-3.4) K/uL [place] # (Auto) 0.65 H (0.11-0.59) K/uL Eos # (Auto) 0.13 (0-0.50) K/uL Baso # (Auto) 0.05 (0-0.2) K/uL Comprehensive Metabolic Panel 11/30/22 12/01/22 Range/Units 09:38 05:38 Sodium 140 138 (136-145) mmol/L Potassium 4.9 4.0 (3.5-5.1) mmol/L Chloride 105 104 (98-107) mmol/L Carbon Dioxide 29 27 (21-32) mmol/L BUN 26 H 21 (6-23) mg/dl Creatinine 1.30 1.07 (0.6-1.4) mg/dl Glucose 99 92 (70-99(Fasting)) mg/dl Calcium 9.2 8.5 L (8.6-10.3) mg/dl Intake and Output 11/30/22 12/01/22 12/01/22 22:59 06:59 14:59 Intake Total 50 / 1140 1090 / 1140 Output Total 1100 / 5250 3150 / 5250 Balance -1050 / -4110 -2059 / -4110 Intake: IV 50 / 100 50 / 100 Ampicillin 1,000 mg In Sodium 50 / 100 50 / 100 Chlor 0.9% Ad-Van 50 ml @ 100 mls/hr IV Q8H COUNT INCLUDES [facility] Rx#:[id number] Oral 1040 / 1040 Output: Urine Amount (Catheter) 1100 / 4250 3150 / 4250 Holden/Indwelling 1100 / 4250 3150 / 4250 Other: Weight 197 kg Weight Measurement Method Standing Scale Diagnostic Findings Telemetry reviewed: Atrial fibrillation in the ' Echo report reviewed: Afib with controlled rates during study. LVEF 60-65% Mild concentric LVH RV is moderately dilated RV systolic function is mildly reduced LA is severely dilated Moderate MR Moderate TR Systolic pulm artery pressure is 38mmHg Chest xray reviewed: IMPRESSION: Cardiomegaly without acute process. EKG reviewed from admission, 11/30/22: Atrial fibrillation Right bundle branch block No significant change from previous repeat EKG reviewed 12/01/22: Afib with controlled rates, RBBB No significant changes Medications Administered Current Inpatient Medications Acetaminophen (Acetaminophen 325 Mg Tab) 650 mg PO Q4H PRN PRN Reason: Pain or Fever Stop: 12/30/22 14:30 Diltiazem HCl (Diltiazem Hcl 240 Mg Capcr) 240 mg PO QAM ABDI Stop: 12/31/22 08:59 Last Admin: 12/01/22 08:21 Dose: 240 mg Ferrous Sulfate (Ferrous Sulfate 325 Mg Tab) 325 mg PO QPM ABDI Stop: 12/30/22 20:59 Fluoxetine HCl (Fluoxetine Hcl 10 Mg Cap) 10 mg PO DAILY ABDI Stop: 12/31/22 08:59 Last Admin: 12/01/22 08:21 Dose: 10 mg Furosemide (Furosemide 40 Mg/4 Ml Vial) 40 mg IV BID ABDI Stop: 12/30/22 20:59 Last Admin: 12/01/22 08:21 Dose: 40 mg Gabapentin (Gabapentin 300 Mg Cap) 300 mg PO BID ABID Stop: 12/30/22 20:59 Last Admin: 12/01/22 08:21 Dose: 300 mg Levothyroxine Sodium (Levothyroxine Sodium 75 Mcg Tablet) 75 mcg PO DAILYBB ABDI Stop: 12/31/22 06:29 Last Admin: 12/01/22 05:40 Dose: 75 mcg Magnesium Oxide (Magnesium Oxide 400 Mg Tab) 400 mg PO BID ABDI Stop: 12/30/22 20:59 Last Admin: 12/01/22 08:21 Dose: 400 mg Metoprolol Succinate (Metoprolol Succ 50mg Ext Rel Tab) 100 mg PO BID ABDI Stop: 12/30/22 20:59 Last Admin: 12/01/22 09:45 Dose: 100 mg Miconazole Nitrate (Miconazole Nitrate Powder 85 Gm) 1 appln EXT Q4 PRN PRN Reason: folds and groin area Stop: 12/30/22 15:59 Pantoprazole Sodium (Pantoprazole 40 Mg Tab) 40 mg PO DAILY ABDI Stop: 12/31/22 08:59 Last Admin: 12/01/22 08:21 Dose: 40 mg Potassium Chloride (Potassium Chloride Pwd 20 Meq Pack) 20 meq PO HS ABDI Stop: 12/30/22 20:59 Last Admin: 11/30/22 20:46 Dose: 20 meq Prednisone (Prednisone 10 Mg Tablet) 10 mg PO DAILY ABDI Stop: 12/31/22 08:59 Last Admin: 12/01/22 08:21 Dose: 10 mg Rivaroxaban (Rivaroxaban 20 Mg Tab) 20 mg PO HS ABDI Stop: 12/30/22 20:59 Last Admin: 11/30/22 20:46 Dose: 20 mg Trazodone HCl (Trazodone Hcl 50 Mg Tab) 150 mg PO QDD PRN PRN Reason: Sleep Stop: 12/30/22 14:30
[2022-12-01] MEDS: METOPROLOL SUCC 50MG EXT REL TAB PO SCH ×2 (09:45→20:27)
--- NOTE | 2022-12-01 12:24 | Electrocardiogram Report ---
Test Reason : Blood Pressure : / mmHG Vent. Rate : 083 BPM Atrial Rate : 085 BPM P-R Int : 000 ms QRS Dur : 136 ms QT Int : 390 ms P-R-T Axes : 000 122 -09 degrees QTc Int : 458 ms Atrial fibrillation Right bundle branch block Abnormal ECG When compared with ECG of 30-NOV-2022 09:31, No significant change was found Confirmed by Marciano Adan ([id number]) on 12/01/2022 12:23:55 PM Referred By: REFERRED SELF Confirmed By:Marciano Adan
--- NOTE | 2022-12-01 13:00 | Hospitalist Progress Note ---
Date of Service December 01, 2022 Assessment & Plan (1) Acute heart failure with preserved ejection fraction (HFpEF): Plan: 62 y/o male with a history of atrial fibrillation on chronic AC, HTN, hypothyroidism, GERD, morbid obesity, s/p gastric bypass, osteomyelitis and discitis L2-L3 in 2021, CAD, and sleep apnea who presents to the ED today via EMS due to worsening shortness of breath with any exertion x 3 days. Admitted with acute exacerbation of CHF. Chest x-ray and EKG personally reviewed. He received furosemide 40 mg IV x 1 in the ED. Also noted to have a mild MINI with creatinine 1.3 (baseline 0.7-0.8). -Echo reviewed, telemetry reviewed, cardiology recommendations reviewed -Continue IV Lasix 40 twice daily, daily weight, strict I and O's -Fluid restriction of 1500 cc -Daily labs (2) Atrial fibrillation with RVR: Plan: Rate controlled, continue Lopressor, Cardizem, and Xarelto (3) Hypothyroidism: Plan: Continue Synthroid, repeat TFTs outpatient with PCP for further adjustment (4) Hypertension: Plan: BP low normal, on Cardizem, Lopressor (5) Morbid obesity: Plan: BMI 64. Weight loss recommended. Follow-up with PCP (6) History of discitis: Plan: Patient has been on chronic suppressive ampicillin 1000 mg 3 times daily for past 6 months after 8 weeks of IV antibiotics for his discitis. He was evaluat ed by infectious disease today who recommended no further need for chronic therapy or chronic suppression and recommended stopping ampicillin. Also stated no further management or follow-up needed from ID Plan DVT prophylaxis-Xarelto Disposition-anticipate discharge home in the next few days pending volume optimization, on IV Lasix. PT OT consulted Admission and Anticipated Discharge Date Admission Date: November 30, 2022 Subjective Patient was seen and examined at bedside. He feels much better after IV Lasix yesterday. He has diuresed 5 L. His shortness of breath, chest tightness and swelling has improved. He however thinks he still has lots of fluid to get rid of. No fever, chills, chest pain or shortness of breath, nausea or vomiting. He states he has been compliant to salt, fluid and medications. Review of Systems Review of Systems: All systems reviewed & are unremarkable except as noted in Subjective Physical Exam Physical Exam: General: Morbidly obese male, lying comfortably in bed, not in distress, on room air HEENT: EOMI, KATHLEEN, MMM Chest: Diminished breath sounds with basilar crackles CVS: Irregular, normal heart sounds, no murmur Abdomen: Soft, non tender, not distended, normal bowel sounds Neuro: Awake, alert, oriented, conversing well, non focal Extremities: No cyanosis, clubbing, 1-2+ edema Results & Data Results & Data Vital Signs (Past 12 Hours) Vital Signs Temp Pulse Resp BP Pulse Ox O2 Del Method 12/01/22 12:08 36.8 C 82 20 91/65 L 95 Room Air 12/01/22 09:00 Room Air 12/01/22 08:00 36.5 C 94 H 21 90/61 L 95 Room Air 12/01/22 04:15 36.7 C 90 18 103/62 94 Room Air Laboratory Results [facility] 12/01/22 05:38 Sodium 138 Potassium 4.0 Chloride 104 Carbon Dioxide 27 BUN 21 Creatinine 1.07 Glucose 92 Calcium 8.5 L Medications Administered Current Inpatient Medications Acetaminophen (Acetaminophen 325 Mg Tab) 650 mg PO Q4H PRN PRN Reason: Pain or Fever Stop: 12/30/22 14:30 Diltiazem HCl (Diltiazem Hcl 240 Mg Capcr) 240 mg PO QAM ABDI Stop: 12/31/22 08:59 Last Admin: 12/01/22 08:21 Dose: 240 mg Ferrous Sulfate (Ferrous Sulfate 325 Mg Tab) 325 mg PO QPM ABDI Stop: 12/30/22 20:59 Fluoxetine HCl (Fluoxetine Hcl 10 Mg Cap) 10 mg PO DAILY ABDI Stop: 12/31/22 08:59 Last Admin: 12/01/22 08:21 Dose: 10 mg Furosemide (Furosemide 40 Mg/4 Ml Vial) 40 mg IV BID ABDI Stop: 12/30/22 20:59 Last Admin: 12/01/22 08:21 Dose: 40 mg Gabapentin (Gabapentin 300 Mg Cap) 300 mg PO BID ABDI Stop: 12/30/22 20:59 Last Admin: 12/01/22 08:21 Dose: 300 mg Levothyroxine Sodium (Levothyroxine Sodium 75 Mcg Tablet) 75 mcg PO DAILYBB ABDI Stop: 12/31/22 06:29 Last Admin: 12/01/22 05:40 Dose: 75 mcg Magnesium Oxide (Magnesium Oxide 400 Mg Tab) 400 mg PO BID ABDI Stop: 12/30/22 20:59 Last Admin: 12/01/22 08:21 Dose: 400 mg Metoprolol Succinate (Metoprolol Succ 50mg Ext Rel Tab) 100 mg PO BID ABDI Stop: 12/30/22 20:59 Last Admin: 12/01/22 09:45 Dose: 100 mg Miconazole Nitrate (Miconazole Nitrate Powder 85 Gm) 1 appln EXT Q4 PRN PRN Reason: folds and groin area Stop: 12/30/22 15:59 Pantoprazole Sodium (Pantoprazole 40 Mg Tab) 40 mg PO DAILY ABDI Stop: 12/31/22 08:59 Last Admin: 12/01/22 08:21 Dose: 40 mg Potassium Chloride (Potassium Chloride Pwd 20 Meq Pack) 20 meq PO HS ABDI Stop: 12/30/22 20:59 Last Admin: 11/30/22 20:46 Dose: 20 meq Prednisone (Prednisone 10 Mg Tablet) 10 mg PO DAILY ABDI Stop: 12/31/22 08:59 Last Admin: 12/01/22 08:21 Dose: 10 mg Rivaroxaban (Rivaroxaban 20 Mg Tab) 20 mg PO HS ABDI Stop: 12/30/22 20:59 Last Admin: 11/30/22 20:46 Dose: 20 mg Trazodone HCl (Trazodone Hcl 50 Mg Tab) 150 mg PO QDD PRN PRN Reason: Sleep Stop: 12/30/22 14:30
[2022-12-01] MEDS: RIVAROXABAN 20 MG TAB PO SCH (20:15)
[2022-12-01] MEDS ORDERED: POTASSIUM CHLORIDE CRTAB 20 MEQ TABCR PO SCH (21:00)
--- NOTE | 2022-12-02 02:02 | Communication Note ---
Date of Service: December 02, 2022 1:55 AM Notified by RN of 4 episodes of 2-3 second pauses on the monitor. Episodic bradycardia 30 to 40s. SBP currently 90s. Patient sleeping during episodes. AP Episodic bradycardia, patient asymptomatic Patient on relatively high doses of beta-stef and calcium channel stef medications for baseline BP and heart rate. Decrease Toprol-XL from 100 mg BID to 25 mg BID for now Hold CCB for now Will request AM provider to relay issue to Cardiology in a.m.
[2022-12-02 02:56] LABS: Basophils # (auto) 0.06 K/uL (0-0.2); Basophils % (auto) 0.7 %; Eosinophils # (auto) 0.13 K/uL (0-0.50); Eosinophils % (auto) 1.6 %; Hematocrit (blood only) 37.8 % (42.0-52.0); Hemoglobin 12.5 g/dl (14.0-18.0); Immature Granulocytes # (auto) 0.02 K/uL (0.01-0.20); Immature Granulocytes % (auto) 0.2 %; Lymphocytes # (auto) 1.58 K/uL (1.2-3.4); Lymphocytes % (auto) 19.7 %; Mean Corpuscular Hgb Conc 33.1 g/dL (32.0-36.0); Mean Corpuscular Volume 87.7 fL (80.0-100.0); Mean Platelet Volume 8.7 fL (9.4-12.4); Monocytes # (auto) 0.78 K/uL (0.11-0.59); Monocytes % (auto) 9.7 %; Neutrophils # (auto) 5.44 K/uL (1.40-6.50); Neutrophils % (auto) 68.1 %; Platelet Count 217 K/uL (130-400); RDW Coefficient of Variation 14.5 % (11.5-14.5); RDW Standard Deviation 46.6 fL (36.4-46.3); Red Blood Count 4.31 M/uL (4.70-6.10); White Blood Count 8.01 K/ul (4.8-10.8)
[2022-12-02 03:14] LABS: BUN Creatinine Ratio 16.4 (10-20); Calcium 8.7 mg/dl (8.6-10.3); Creatinine Clr Calc Pharmacy 113.2 ml/min; Est GFR (African American) 77.8 ml/min; Est GFR (Non-African American) 67.1 ml/min; Magnesium 1.6 mg/dl (1.7-2.4); Potassium 3.7 mmol/L (3.5-5.1)
[2022-12-02] MEDS ORDERED: POTASSIUM CHLORIDE CRTAB 20 MEQ TABCR PO STA (03:21)
[2022-12-02 03:28] LABS: Partial Thromboplastin Ratio 1.4; Partial Thromboplastin Time 39.9 Seconds (21.0-31.0)
[2022-12-02] MEDS: MAGNESIUM SULFATE / D5W 1 GM/100 ML BAG IV SCH ×2 (03:44→05:40)
[2022-12-02] MEDS: LEVOTHYROXINE SODIUM 75 MCG TABLET PO SCH (05:40)
[2022-12-02] MEDS ORDERED: MAGNESIUM SULFATE / D5W 1 GM/100 ML BAG IV ONE (07:49)
[2022-12-02] MEDS: FUROSEMIDE 40 MG/4 ML VIAL IV SCH ×2 (08:34→20:23)
[2022-12-02] MEDS: MAGNESIUM OXIDE 400 MG TAB PO SCH ×2 (08:34→20:22)
[2022-12-02] MEDS: METOPROLOL SUCC 25MG EXT REL TAB PO SCH ×2 (08:34→20:22)
[2022-12-02] MEDS: PANTOprazole 40 MG TAB PO SCH (08:35)
[2022-12-02] MEDS: FLUoxetine HCL 10 MG CAP PO SCH (08:35)
[2022-12-02] MEDS: GABAPENTIN 300 MG CAP PO SCH ×2 (08:35→20:22)
[2022-12-02] MEDS: predniSONE 10 MG TABLET PO SCH (08:35)
[2022-12-02] MEDS ORDERED: POTASSIUM CHLORIDE CRTAB 20 MEQ TABCR PO SCH (09:00)
--- NOTE | 2022-12-02 11:09 | Cardiology Progress Note ---
Date of Service December 02, 2022 Assessment & Plan (1) Acute heart failure with preserved ejection fraction (HFpEF): (2) Chronic atrial fibrillation: (3) Bradycardia: Plan Patient admitted for acute HFpEF after non compliance with oral diuretics over the last few weeks. Evidence of volume overload on exam with worsening SOB, orthopnea, edema. Clinically improved with IV diuretic therapy. Continue IV diuretics 40 mg BID today. Monitor fluid balance, daily weight, GFR, and electrolytes. Chronic A-fib with controlled heart rates during daytime hours, and significant pauses occurring overnight during sleep. I suspect pauses related to AV zoila blocking agents in the setting of sleep apnea. Patient with documented intolerance to CPAP. Will hold diltiazem today with nocturnal pulse oximetry trend this evening. Consider sleep medicine evaluation. Chronic anticoagulati on with Xarelto 20 mg daily Echo during this admission with preserved LVEF, dilated RV with reduced function. RV dysfunction likely due to underlying obesity PHYLLIS, untreated. Recommend nocturnal oximetry and consider repeat sleep med evaluation. Admission and Anticipated Discharge Date Admission Date: November 30, 2022 Subjective Patient seen and examined at the bedside. Fluid balance negative additional 7 L. Remains in atrial fibrillation on telemetry with several pauses overnight. The longest pause of 6.3 seconds occurring at 3:24 AM. Patient sleep without symptoms. Reports history of obstructive sleep apnea and intolerance to CPAP. Heart rates otherwise controlled during daytime. Review of Systems Review of Systems: All systems reviewed & are unremarkable except as noted in Subjective Physical Exam Constitutional: well nourished and + morbidly obese; no acute distress Respiratory: normal respiratory effort; no respiratory distress and no labored breathing Auscultation: + diminished lung sounds (Bases bilateral) and + rales (Bases bilateral); no rhonchi and no wheezes Cardiovascular: Rate/Rhythm: + irregularly irregular Heart Sounds: normal S1 and normal S2; no murmur Vessels: radial pulses present; no JVD and no carotid bruit Extremities: + edema (2-3+ pitting edema to the waist) Gastrointestinal (Abdomen): Inspection/Auscultation: normal bowel sounds; abdomen not distended Percussion/Palpation: abdomen soft; abdomen nontender, no guarding and abdomen not rigid Neurologic: CN's II-XI intact bilaterally and moves all extremities; no focal motor deficits Psychiatric: A+Ox3, euthymic affect Results & Data Vital Signs (Past 12 Hours) Vital Signs Temp Pulse Resp BP Pulse Ox O2 Del Method 12/02/22 08:00 Room Air 12/02/22 08:16 36.7 C 78 20 94/60 L 94 Room Air 12/02/22 03:55 36.6 C 68 18 107/65 92 Room Air 12/02/22 01:47 36.9 C 67 18 91/62 L 95 Room Air 12/01/22 23:43 36.8 C 80 18 96/61 L 93 Room Air Laboratory Results Coagulation 12/02/22 Range/Units 02:37 APTT 39.9 H (21.0-31.0) Seconds CBC 12/02/22 Range/Units 02:37 WBC 8.01 (4.8-10.8) K/ul RBC 4.31 L (4.70-6.10) M/uL Hgb 12.5 L (14.0-18.0) g/dl Hct 37.8 L (42.0-52.0) % Plt Count 217 (130-400) K/uL Neut # (Auto) 5.44 (1.40-6.50) K/uL Lymph # (Auto) 1.58 (1.2-3.4) K/uL [place] # (Auto) 0.78 H (0.11-0.59) K/uL Eos # (Auto) 0.13 (0-0.50) K/uL Baso # (Auto) 0.06 (0-0.2) K/uL Comprehensive Metabolic Panel 12/02/22 Range/Units 02:37 Sodium 138 (136-145) mmol/L Potassium 3.7 (3.5-5.1) mmol/L Chloride 101 (98-107) mmol/L Carbon Dioxide 30 (21-32) mmol/L BUN 19 (6-23) mg/dl Creatinine 1.16 (0.6-1.4) mg/dl Glucose 103 H (70-99(Fasting)) mg/dl Calcium 8.7 (8.6-10.3) mg/dl Intake and Output 12/01/22 12/02/22 12/02/22 22:59 06:59 14:59 Intake Total 550 / 1481.667 296.667 / 1481.667 100 / 100 Output Total 2150 / 7350 1650 / 7350 1200 / 1200 Balance -1600 / -5868.333 -1353.333 / -5868.333 -1100 / -1100 Intake: IV 96.667 / 96.667 100 / 100 Magnesium Sulfate / D5w 1 gm In 96.667 / 96.667 100 / 100 100 ml @ 50 mls/hr IV Q2H [facility] Rx#:[id number] Oral 550 / 1385 200 / 1385 Output: Urine Amount (Catheter) 2149 / 7350 1650 / 7350 1200 / 1200 Holden/Indwelling 215 / 7350 1650 / 7350 1200 / 1200 Other: Weight 185.2 kg Weight Measurement Method Standing Scale
--- NOTE | 2022-12-02 14:38 | Hospitalist Progress Note ---
Date of Service December 02, 2022 Assessment & Plan (1) Acute heart failure with preserved ejection fraction (HFpEF): Plan: 62 y/o male with a history of atrial fibrillation on chronic AC, HTN, hypothyroidism, GERD, morbid obesity, s/p gastric bypass, osteomyelitis and discitis L2-L3 in 2021, CAD, and sleep apnea who presents to the ED today via EMS due to worsening shortness of breath with any exertion x 3 days. Admitted with acute exacerbation of CHF. Chest x-ray and EKG personally reviewed. He received furosemide 40 mg IV x 1 in the ED. Also noted to have a mild MINI with creatinine 1.3 (baseline 0.7-0.8). -Echo reviewed, telemetry reviewed, cardiology recommendations reviewed -Continue IV Lasix 40 twice daily, daily weight, strict I and O's -Fluid restriction of 1500 cc -Daily labs (2) Atrial fibrillation with RVR: Plan: Rate controlled but had significant pauses overnight on telemetry 6.3-second long Discussed with cardiology-suspected due to AV zoila blocking agents in setting of sleep apnea. Patient has intolerance to CPAP. Holding Cardizem today per cardiology with nocturnal pulse oximetry trend Outpatient sleep study evaluation. Continue Xarelto. (3) Hypothyroidism: Plan: Continue Synthroid, repeat TFTs outpatient with PCP for further adjustment (4) Hypertension: Plan: BP low normal, Cardizem on hold as above (5) Morbid obesity: Plan: BMI 64. Weight loss recommended. Follow-up with PCP (6) History of discitis: Plan: Patient has been on chronic suppressive ampicillin 1000 mg 3 times daily for past 6 months after 8 weeks of IV antibiotics for his discitis. He was evaluated by infectious disease today who recommended no further need for chronic therapy or chronic suppression and recommended stopping ampicillin. Also stated no further management or follow-up needed from ID Plan DVT prophylaxis-Xarelto Disposition-pending volume optimization, continue IV Lasix. Nocturnal pulse oximetry today. Admission and Anticipated Discharge Date Admission Date: November 30, 2022 Subjective Patient was seen and examined at bedside. He is diuresing very well and losing weight but he still feels he has lots of fluid to lose. Gets shortness of breath with exertion. He also had 6-second pause overnight on telemetry. States he was on CPAP for a year but he discontinued as he could not tolerate it. No fever, chills, chest pain, nausea or vomiting. Review of Systems Review of Systems: All systems reviewed & are unremarkable except as noted in Subjective Physical Exam Physical Exam: General: Morbidly obese male, lying comfortably in bed, not in distress, on room air HEENT: EOMI, KATHLEEN, MMM Chest: Diminished breath sounds with basilar rales CVS: Irregular, normal heart sounds, no murmur Abdomen: Soft, non tender, not distended, normal bowel sounds Neuro: Awake, alert, oriented, conversing well, non focal Extremities: No cyanosis, clubbing, 2+ edema Results & Data Results & Data Vital Signs (Past 12 Hours) Vital Signs Temp Pulse Resp BP Pulse Ox O2 Del Method 12/02/22 12:18 37 C 72 20 93/62 L 92 Room Air 12/02/22 08:00 Room Air 12/02/22 08:16 36.7 C 78 20 94/60 L 94 Room Air 12/02/22 03:55 36.6 C 68 18 107/65 92 Room Air Laboratory Results Short CBC 12/02/22 Range/Units 02:37 WBC 8.01 (4.8-10.8) K/ul Hgb 12.5 L (14.0-18.0) g/dl Hct 37.8 L (42.0-52.0) % Plt Count 217 (130-400) K/uL BMP 12/02/22 02:37 Sodium 138 Potassium 3.7 Chloride 101 Carbon Dioxide 30 BUN 19 Creatinine 1.16 Glucose 103 H Calcium 8.7 Medications Administered Current Inpatient Medications Acetaminophen (Acetaminophen 325 Mg Tab) 650 mg PO Q4H PRN PRN Reason: Pain or Fever Stop: 12/30/22 14:30 Diltiazem HCl (Diltiazem Hcl 240 Mg Capcr) 240 mg PO QAM ABDI Stop: 12/31/22 08:59 Last Admin: 12/01/22 08:21 Dose: 240 mg Ferrous Sulfate (Ferrous Sulfate 325 Mg Tab) 325 mg PO QPM ABDI Stop: 12/30/22 20:59 Fluoxetine HCl (Fluoxetine Hcl 10 Mg Cap) 10 mg PO DAILY ABDI Stop: 12/31/22 08:59 Last Admin: 12/02/22 08:35 Dose: 10 mg Furosemide (Furosemide 40 Mg/4 Ml Vial) 40 mg IV BID ABDI Stop: 12/30/22 20:59 Last Admin: 12/02/22 08:34 Dose: 40 mg Gabapentin (Gabapentin 300 Mg Cap) 300 mg PO BID ABDI Stop: 12/30/22 20:59 Last Admin: 12/02/22 08:35 Dose: 300 mg Levothyroxine Sodium (Levothyroxine Sodium 75 Mcg Tablet) 75 mcg PO DAILYBB ABDI Stop: 12/31/22 06:29 Last Admin: 12/02/22 05:40 Dose: 75 mcg Magnesium Oxide (Magnesium Oxide 400 Mg Tab) 400 mg PO BID ABDI Stop: 12/30/22 20:59 Last Admin: 12/02/22 08:34 Dose: 400 mg Metoprolol Succinate (Metoprolol Succ 25mg Ext Rel Tab) 25 mg PO BID ABDI Stop: 01/01/23 08:59 Last Admin: 12/02/22 08:34 Dose: 25 mg Miconazole Nitrate (Miconazole Nitrate Powder 85 Gm) 1 appln EXT Q4 PRN PRN Reason: folds and groin area Stop: 12/30/22 15:59 Pantoprazole Sodium (Pantoprazole 40 Mg Tab) 40 mg PO DAILY ABDI Stop: 12/31/22 08:59 Last Admin: 12/02/22 08:35 Dose: 40 mg Potassium Chloride (Potassium Chloride Crtab 20 Meq Tabcr) 20 meq PO BID ABDI Stop: 01/01/23 20:59 Prednisone (Prednisone 10 Mg Tablet) 10 mg PO DAILY ABDI Stop: 12/31/22 08:59 Last Admin: 12/02/22 08:35 Dose: 10 mg Rivaroxaban (Rivaroxaban 20 Mg Tab) 20 mg PO HS ABDI Stop: 12/30/22 20:59 Last Admin: 12/01/22 20:15 Dose: 20 mg Trazodone HCl (Trazodone Hcl 50 Mg Tab) 150 mg PO QDD PRN PRN Reason: Sleep Stop: 12/30/22 14:30
[2022-12-02] MEDS: POTASSIUM CHLORIDE CRTAB 20 MEQ TABCR PO SCH (20:22)
[2022-12-02] MEDS: RIVAROXABAN 20 MG TAB PO SCH (20:22)
[2022-12-03] MEDS: LEVOTHYROXINE SODIUM 75 MCG TABLET PO SCH (06:10)
[2022-12-03 06:32] LABS: BUN Creatinine Ratio 15.2 (10-20); Creatinine Clr Calc Pharmacy 120.9 ml/min; Est GFR (African American) 81.2 ml/min; Magnesium 1.8 mg/dl (1.7-2.4); Potassium 4.2 mmol/L (3.5-5.1)
[2022-12-03] MEDS: POTASSIUM CHLORIDE CRTAB 20 MEQ TABCR PO SCH ×2 (07:36→21:26)
[2022-12-03] MEDS: GABAPENTIN 300 MG CAP PO SCH ×2 (07:36→21:24)
[2022-12-03] MEDS: MAGNESIUM OXIDE 400 MG TAB PO SCH ×2 (07:36→21:24)
[2022-12-03] MEDS: METOPROLOL SUCC 25MG EXT REL TAB PO SCH (07:36)
[2022-12-03] MEDS: PANTOprazole 40 MG TAB PO SCH (07:36)
[2022-12-03] MEDS: FLUoxetine HCL 10 MG CAP PO SCH (07:37)
[2022-12-03] MEDS: predniSONE 10 MG TABLET PO SCH (07:37)
[2022-12-03] MEDS: FUROSEMIDE 40 MG/4 ML VIAL IV SCH ×2 (07:37→21:24)
[2022-12-03] MEDS ORDERED: METOPROLOL SUCC 25MG EXT REL TAB PO STA (11:55)
--- NOTE | 2022-12-03 11:59 | Hospitalist Progress Note ---
Date of Service December 03, 2022 Assessment & Plan (1) Acute heart failure with preserved ejection fraction (HFpEF): Plan: 62 y/o male with a history of atrial fibrillation on chronic AC, HTN, hypothyroidism, GERD, morbid obesity, s/p gastric bypass, osteomyelitis and discitis L2-L3 in 2021, CAD, and sleep apnea who presents to the ED today via EMS due to worsening shortness of breath with any exertion x 3 days. Admitted with acute exacerbation of CHF. Chest x-ray and EKG personally reviewed. He received furosemide 40 mg IV x 1 in the ED. Also noted to have a mild MINI with creatinine 1.3 (baseline 0.7-0.8). -Echo reviewed, telemetry reviewed, cardiology recommendations reviewed -Continue IV Lasix 40 twice daily, daily weight, strict I and O's -Fluid restriction of 1500 cc -Daily labs (2) Atrial fibrillation with RVR: Plan: Rate controlled but had significant pauses overnight on telemetry 6.3-second long on 12/02 around 3 AM. Discussed with cardiology-suspected due to AV zoila blocking agents in setting of sleep apnea. Patient has intolerance to CPAP. Regardless, continue to hold Cardizem and increase dose of Lopressor Outpatient sleep study evaluation. Continue Xarelto. (3) Hypothyroidism: Plan: Continue Synthroid, repeat TFTs outpatient with PCP for further adjustment (4) Hypertension: Plan: BP low normal, Cardizem on hold as above (5) Morbid obesity: Plan: BMI 64. Weight loss recommended. Follow-up with PCP (6) History of discitis: Plan: Patient has been on chronic suppressive ampicillin 1000 mg 3 times daily for past 6 months after 8 weeks of IV antibiotics for his discitis. He was evaluated by infectious disease today who recommended no further need for chronic therapy or chronic suppression and recommended stopping ampicillin. Also stated no further management or follow-up needed from ID Plan DVT prophylaxis-Xarelto Disposition-pending volume optimization, continue IV Lasix. Admission and Anticipated Discharge Date Admission Date: November 30, 2022 Subjective Patient was seen and examined at bedside. He does not feel so good today. States he did have a good night sleep. He was surprised about the weight gain today while checking the weight. He continues to diurese well. Discussed about discrepancy between diuresis and weight loss. His swelling continues to improve and legs feel less firm. No fever, chills, chest pain or shortness of breath, nausea or vomiting. Discussed about overnight oxygen desaturation study and recommended follow-up with his sleep doctors for sleep titration study and resuming his CPAP Review of Systems Review of Systems: All systems reviewed & are unremarkable except as noted in Subjective Physical Exam Physical Exam: General: Morbidly obese male, lying comfortably in bed, not in distress, on room air HEENT: EOMI, KATHLEEN, MMM Chest: Diminished breath sounds with basilar rales CVS: Irregular, normal heart sounds, no murmur Abdomen: Soft, non tender, not distended, normal bowel sounds Neuro: Awake, alert, oriented, conversing well, non focal Extremities: No cyanosis, clubbing, 2+ edema Results & Data Results & Data Vital Signs (Past 12 Hours) Vital Signs Temp Pulse Resp BP BP Pulse Ox O2 Del Method 12/03/22 11:13 36.8 C 97 H 18 107/62 92 Room Air 12/03/22 08:00 Room Air 12/03/22 08:20 36.6 C 95 H 18 109/71 93 Room Air 12/03/22 05:54 36.6 C 103 H 20 118/78 93 Room Air 12/03/22 03:13 89 93 Room Air Laboratory Results BMP 12/03/22 05:30 Sodium 139 Potassium 4.2 Chloride 98 Carbon Dioxide 36 H BUN 17 Creatinine 1.12 Glucose 93 Calcium 9.0 Medications Administered Current Inpatient Medications Acetaminophen (Acetaminophen 325 Mg Tab) 650 mg PO Q4H PRN PRN Reason: Pain or Fever Stop: 12/30/22 14:30 Diltiazem HCl (Diltiazem Hcl 240 Mg Capcr) 240 mg PO QAM ABDI Stop: 12/31/22 08:59 Last Admin: 12/01/22 08:21 Dose: 240 mg Ferrous Sulfate (Ferrous Sulfate 325 Mg Tab) 325 mg PO QPM ABDI Stop: 12/30/22 20:59 Fluoxetine HCl (Fluoxetine Hcl 10 Mg Cap) 10 mg PO DAILY ABDI Stop: 12/31/22 08:59 Last Admin: 12/03/22 07:37 Dose: 10 mg Furosemide (Furosemide 40 Mg/4 Ml Vial) 40 mg IV BID ABDI Stop: 12/30/22 20:59 Last Admin: 12/03/22 07:37 Dose: 40 mg Gabapentin (Gabapentin 300 Mg Cap) 300 mg PO BID ABDI Stop: 12/30/22 20:59 Last Admin: 12/03/22 07:36 Dose: 300 mg Levothyroxine Sodium (Levothyroxine Sodium 75 Mcg Tablet) 75 mcg PO DAILYBB ABDI Stop: 12/31/22 06:29 Last Admin: 12/03/22 06:10 Dose: 75 mcg Magnesium Oxide (Magnesium Oxide 400 Mg Tab) 400 mg PO BID ABDI Stop: 12/30/22 20:59 Last Admin: 12/03/22 07:36 Dose: 400 mg Metoprolol Succinate (Metoprolol Succ 50mg Ext Rel Tab) 50 mg PO BID ABDI Stop: 01/02/23 20:59 Metoprolol Succinate (Metoprolol Succ 25mg Ext Rel Tab) 25 mg PO NOW STA Stop: 12/03/22 11:56 Miconazole Nitrate (Miconazole Nitrate Powder 85 Gm) 1 appln EXT Q4 PRN PRN Reason: folds and groin area Stop: 12/30/22 15:59 Pantoprazole Sodium (Pantoprazole 40 Mg Tab) 40 mg PO DAILY ABDI Stop: 12/31/22 08:59 Last Admin: 12/03/22 07:36 Dose: 40 mg Potassium Chloride (Potassium Chloride Crtab 20 Meq Tabcr) 20 meq PO BID ABDI Stop: 01/01/23 20:59 Last Admin: 12/03/22 07:36 Dose: 20 meq Prednisone (Prednisone 10 Mg Tablet) 10 mg PO DAILY ABDI Stop: 12/31/22 08:59 Last Admin: 12/03/22 07:37 Dose: 10 mg Rivaroxaban (Rivaroxaban 20 Mg Tab) 20 mg PO HS ABDI Stop: 12/30/22 20:59 Last Admin: 12/02/22 20:22 Dose: 20 mg Trazodone HCl (Trazodone Hcl 50 Mg Tab) 150 mg PO QDD PRN PRN Reason: Sleep Stop: 12/30/22 14:30
--- NOTE | 2022-12-03 12:02 | Cardiology Progress Note ---
Date of Service December 03, 2022 Assessment & Plan (1) Acute heart failure with preserved ejection fraction (HFpEF): (2) Chronic atrial fibrillation: (3) Bradycardia: (4) PYHLLIS (obstructive sleep apnea): Plan Patient admitted for acute HFpEF after non compliance with oral diuretics over the last few weeks. Evidence of volume overload on exam with worsening SOB, orthopnea, edema. Clinically improved with IV diuretic therapy. Continue IV diuretics 40 mg BID today. Monitor fluid balance, daily weight, GFR, and electrolytes. No recurrent pauses overnight with discontinuation of calcium channel stef therapy. Nocturnal pulse ox trend demonstrating intermittent hypoxia. Patient carries history of obstructive sleep apnea and intolerance to CPAP, however, agreeable to trial of CPAP therapy tonight. Consider sleep medicine evaluation. Titrate Toprol-XL to 50 mg twice daily to improve rate control. Continue chronic anticoagulation with Xarelto. Echo during this admission with preserved LVEF, dilated RV with reduced function. RV dysfunction likely due to underlying obesity PHYLLIS, untreated. Admission and Anticipated Discharge Date Admission Date: November 30, 2022 Subjective Patient seen examined the bedside. Feeling better today. Continues to diurese well with IV Lasix. There is some discrepancy with his bedside weights today. I suspect there is a problem with the scale used yesterday. Nocturnal pulse ox trend demonstrating 35 minutes with oxygen saturation less than 89%. Diltiazem placed on hold yesterday due to 3 to 6-second pauses occurring during sleep. No recurrent pauses overnight. Tolerating metoprolol 25 mg twice daily, however, daytime heart heart rate now borderline elevated in the 90s. Patient reports transient episode of chest discomfort. No dyspnea at rest. Review of Systems Review of Systems: All systems reviewed & are unremarkable except as noted in Subjective Physical Exam Constitutional: well nourished and + morbidly obese; no acute distress Respiratory: normal respiratory effort; no respiratory distress and no labored breathing Auscultation: + diminished lung sounds (Bases bilateral) and + rales (Bases bilateral); no rhonchi and no wheezes Cardiovascular: Rate/Rhythm: + irregularly irregular Heart Sounds: normal S1 and normal S2; no murmur Vessels: radial pulses present; no JVD and no carotid bruit Extremities: + edema (2-3+ pitting edema to the waist) Gastrointestinal (Abdomen): Inspection/Auscultation: normal bowel sounds; abdomen not distended Percussion/Palpation: abdomen soft; abdomen nontender, no guarding and abdomen not rigid Neurologic: CN's II-XI intact bilaterally and moves all extremities; no focal motor deficits Psychiatric: A+Ox3, euthymic affect Results & Data Vital Signs (Past 12 Hours) Vital Signs Temp Pulse Resp BP BP Pulse Ox O2 Del Method 12/03/22 11:13 36.8 C 97 H 18 107/62 92 Room Air 12/03/22 08:00 Room Air 12/03/22 08:20 36.6 C 95 H 18 109/71 93 Room Air 12/03/22 05:54 36.6 C 103 H 20 118/78 93 Room Air 12/03/22 03:13 89 93 Room Air Laboratory Results Comprehensive Metabolic Panel 12/03/22 Range/Units 05:30 Sodium 139 (136-145) mmol/L Potassium 4.2 (3.5-5.1) mmol/L Chloride 98 (98-107) mmol/L Carbon Dioxide 36 H (21-32) mmol/L BUN 17 (6-23) mg/dl Creatinine 1.12 (0.6-1.4) mg/dl Glucose 93 (70-99(Fasting)) mg/dl Calcium 9.0 (8.6-10.3) mg/dl Intake and Output 12/02/22 12/03/22 12/03/22 22:59 06:59 14:59 Intake Total 100 / 940 500 / 940 Output Total 450 / 6700 3650 / 6700 2800 / 2800 Balance -350 / -5760 -3150 / -5760 -2800 / -2800 Intake: Oral 100 / 840 500 / 840 Output: Urine Amount (Catheter) 450 / 6700 3650 / 6700 2800 / 2800 Holden/Indwelling 450 / 6700 3650 / 6700 2800 / 2800 Other: Weight 205.1 kg Weight Measurement Method Standing Scale
[2022-12-03] MEDS: METOPROLOL SUCC 50MG EXT REL TAB PO SCH (21:25)
[2022-12-03] MEDS: RIVAROXABAN 20 MG TAB PO SCH (21:26)
[2022-12-04] MEDS: LEVOTHYROXINE SODIUM 75 MCG TABLET PO SCH (05:53)
[2022-12-04 07:03] LABS: BUN Creatinine Ratio 13.7 (10-20); Calcium 9.3 mg/dl (8.6-10.3); Creatinine Clr Calc Pharmacy 113.1 ml/min; Est GFR (Non-African American) 66.4 ml/min; Magnesium 1.9 mg/dl (1.7-2.4)
[2022-12-04] MEDS: FUROSEMIDE 40 MG/4 ML VIAL IV SCH (08:52)
[2022-12-04] MEDS: FLUoxetine HCL 10 MG CAP PO SCH (08:52)
[2022-12-04] MEDS: POTASSIUM CHLORIDE CRTAB 20 MEQ TABCR PO SCH ×2 (08:53→20:35)
[2022-12-04] MEDS: PANTOprazole 40 MG TAB PO SCH (08:53)
[2022-12-04] MEDS: GABAPENTIN 300 MG CAP PO SCH ×2 (08:53→20:35)
[2022-12-04] MEDS: predniSONE 10 MG TABLET PO SCH (08:53)
[2022-12-04] MEDS: METOPROLOL SUCC 50MG EXT REL TAB PO SCH ×2 (08:53→20:35)
[2022-12-04] MEDS: MAGNESIUM OXIDE 400 MG TAB PO SCH ×2 (08:53→20:34)
--- NOTE | 2022-12-04 12:50 | Cardiology Progress Note ---
Date of Service December 04, 2022 Assessment & Plan (1) Acute heart failure with preserved ejection fraction (HFpEF): (2) Chronic atrial fibrillation: (3) Bradycardia: (4) PHYLLIS (obstructive sleep apnea): Plan Patient admitted for acute HFpEF after non compliance with oral diuretics over the last few weeks. Evidence of volume overload on exam with worsening SOB, orthopnea, edema. Reduce furosemide to 40 mg IV daily. Continue potassium supplementation. Monitor fluid balance, daily weight, GFR, and electrolytes. No recurrent pauses overnight with discontinuation of calcium channel stef therapy. Toprol-XL titrated to 50 mg twice daily. Nocturnal pulse ox trend demonstrating intermittent hypoxia. Patient carries history of obstructive sleep apnea and intolerance to CPAP, however, agreeable to trial of CPAP therapy tonight. Consider sleep medicine evaluation. Continue chronic anticoagulation with Xarelto. Echo during this admission with preserved LVEF, dilated RV with reduced function. RV dysfunction likely due to underlying obesity PHYLLIS, untreated. Admission and Anticipated Discharge Date Admission Date: November 30, 2022 Subjective Patient seen and examined at the bedside. Fluid balance negative additional 8 L. Renal function remained stable, however, serum bicarbonate trending upward. Heart rate improved with titration of beta-stef therapy. No recurrent pauses overnight. Intermittent borderline asymptomatic hypotension noted. Patient did not begin CPAP last night. Review of Systems Review of Systems: All systems reviewed & are unremarkable except as noted in Subjective Physical Exam Constitutional: well nourished and + morbidly obese; no acute distress Respiratory: normal respiratory effort; no respiratory distress and no labored breathing Auscultation: + diminished lung sounds (Bases bilateral) and + rales (Bases bilateral); no rhonchi and no wheezes Cardiovascular: Rate/Rhythm: + irregularly irregular Heart Sounds: normal S1 and normal S2; no murmur Vessels: radial pulses present; no JVD and no carotid bruit Extremities: + edema (2+ pitting edema to the waist) Gastrointestinal (Abdomen): Inspection/Auscultation: normal bowel sounds; abdomen not distended Percussion/Palpation: abdomen soft; abdomen nontender, no guarding and abdomen not rigid Neurologic: CN's II-XI intact bilaterally and moves all extremities; no focal motor deficits Psychiatric: A+Ox3, euthymic affect Results & Data Vital Signs (Past 12 Hours) Vital Signs Temp Pulse Pulse Resp BP Pulse Ox O2 Del Method 12/04/22 11:20 36.4 C L 77 18 99/66 L 92 Room Air 12/04/22 08:01 36.7 C 88 18 121/84 92 Room Air 12/04/22 04:00 36.5 C 92 H 19 128/80 94 Room Air Laboratory Results Comprehensive Metabolic Panel 12/04/22 Range/Units 06:20 Sodium 140 (136-145) mmol/L Potassium 4.0 (3.5-5.1) mmol/L Chloride 96 L (98-107) mmol/L Carbon Dioxide 38 H (21-32) mmol/L BUN 16 (6-23) mg/dl Creatinine 1.17 (0.6-1.4) mg/dl Glucose 95 (70-99(Fasting)) mg/dl Calcium 9.3 (8.6-10.3) mg/dl Intake and Output 12/03/22 12/04/22 12/04/22 22:59 06:59 14:59 Intake Total 550 / 790 Output Total 4550 / 8900 Balance -4000 / -8110 Intake: Oral 550 / 790 Output: Urine Amount (Catheter) 4550 / 00 Holden/Indwelling 4550 / 8900 Other: Weight 199.2 kg Weight Measurement Method Standing Scale
--- NOTE | 2022-12-04 12:57 | Hospitalist Progress Note ---
Date of Service December 04, 2022 Assessment & Plan (1) Acute heart failure with preserved ejection fraction (HFpEF): Plan: 62 y/o male with a history of atrial fibrillation on chronic AC, HTN, hypothyroidism, GERD, morbid obesity, s/p gastric bypass, osteomyelitis and discitis L2-L3 in 2021, CAD, and sleep apnea who presents to the ED today via EMS due to worsening shortness of breath with any exertion x 3 days. Admitted with acute exacerbation of CHF. Chest x-ray and EKG personally reviewed. He received furosemide 40 mg IV x 1 in the ED. -Echo reviewed, telemetry reviewed, cardiology recommendations reviewed -Continue IV Lasix 40 twice daily on admission, now changed to daily per cardiology from today 12/04. -Continues to diurese well about net negative of 6L a day. Wt now seems to be at baseline. Continue daily weight, strict I and O's, fluid restriction of 1500 cc -Daily labs. Cr has remained stable at 1.1 with continued diuresis and metabolic alkalosis (2) Atrial fibrillation with RVR: Plan: Rate controlled but had significant pauses overnight on telemetry 6.3-second long on 12/02 around 3 AM. Discussed with cardiology-suspected due to AV zoila blocking agents in setting o f sleep apnea. Agreeable to trial of CPAP- ordered from tonight Continue to hold Cardizem; continue Lopressor Outpatient sleep study evaluation. Continue Xarelto. (3) Hypothyroidism: Plan: Continue Synthroid, repeat TFTs outpatient with PCP for further adjustment (4) Hypertension: Plan: BP low normal, Cardizem on hold as above (5) Morbid obesity: Plan: BMI 64. Weight loss recommended. Follow-up with PCP (6) History of discitis: Plan: Patient has been on chronic suppressive ampicillin 1000 mg 3 times daily for past 6 months after 8 weeks of IV antibiotics for his discitis. He was evaluated by infectious disease today who recommended no further need for chronic therapy or chronic suppression and recommended stopping ampicillin. Also stated no further management or follow-up needed from ID Plan DVT prophylaxis-Xarelto Disposition-pending volume optimization, continue IV Lasix. Anticipate 1-2 more days. Admission and Anticipated Discharge Date Admission Date: November 30, 2022 Subjective Patient seen examined at bedside. no new issues. Continues to diurese well. Still volume overloaded. He had a relatively good night. No fever, chills, N/V/CP, SOB. Agreeable to trial of CPAP here given his sleep apnea and pause Review of Systems Review of Systems: All systems reviewed & are unremarkable except as noted in Subjective Physical Exam Physical Exam: General: Morbidly obese male, lying comfortably in bed, not in distress, on room air HEENT: EOMI, KATHLEEN, MMM Chest: Diminished breath sounds with basilar rales CVS: Irregular, normal heart sounds, no murmur Abdomen: Soft, non tender, not distended, normal bowel sounds Neuro: Awake, alert, oriented, conversing well, non focal Extremities: No cyanosis, clubbing, 2+ edema Results & Data Results & Data Vital Signs (Past 12 Hours) Vital Signs Temp Pulse Pulse Resp BP Pulse Ox O2 Del Method 12/04/22 11:20 36.4 C L 77 18 99/66 L 92 Room Air 12/04/22 08:01 36.7 C 88 18 121/84 92 Room Air 12/04/22 04:00 36.5 C 92 H 19 128/80 94 Room Air Laboratory Results [facility] 12/04/22 06:20 Sodium 140 Potassium 4.0 Chloride 96 L Carbon Dioxide 38 H BUN 16 Creatinine 1.17 Glucose 95 Calcium 9.3 Medications Administered Current Inpatient Medications Acetaminophen (Acetaminophen 325 Mg Tab) 650 mg PO Q4H PRN PRN Reason: Pain or Fever Stop: 12/30/22 14:30 Diltiazem HCl (Diltiazem Hcl 240 Mg Capcr) 240 mg PO QAM ABDI Stop: 12/31/22 08:59 Last Admin: 12/01/22 08:21 Dose: 240 mg Ferrous Sulfate (Ferrous Sulfate 325 Mg Tab) 325 mg PO QPM ABDI Stop: 12/30/22 20:59 Fluoxetine HCl (Fluoxetine Hcl 10 Mg Cap) 10 mg PO DAILY ABDI Stop: 12/31/22 08:59 Last Admin: 12/04/22 08:52 Dose: 10 mg Furosemide (Furosemide 40 Mg/4 Ml Vial) 40 mg IV DAILY ABDI Stop: 01/04/23 08:59 Gabapentin (Gabapentin 300 Mg Cap) 300 mg PO BID ABDI Stop: 12/30/22 20:59 Last Admin: 12/04/22 08:53 Dose: 300 mg Levothyroxine Sodium (Levothyroxine Sodium 75 Mcg Tablet) 75 mcg PO DAILYBB ABDI Stop: 12/31/22 06:29 Last Admin: 12/04/22 05:53 Dose: 75 mcg Magnesium Oxide (Magnesium Oxide 400 Mg Tab) 400 mg PO BID ABDI Stop: 12/30/22 20:59 Last Admin: 12/04/22 08:53 Dose: 400 mg Metoprolol Succinate (Metoprolol Succ 50mg Ext Rel Tab) 50 mg PO BID ABDI Stop: 01/02/23 20:59 Last Admin: 12/04/22 08:53 Dose: 50 mg Miconazole Nitrate (Miconazole Nitrate Powder 85 Gm) 1 appln EXT Q4 PRN PRN Reason: folds and groin area Stop: 12/30/22 15:59 Pantoprazole Sodium (Pantoprazole 40 Mg Tab) 40 mg PO DAILY ABDI Stop: 12/31/22 08:59 Last Admin: 12/04/22 08:53 Dose: 40 mg Potassium Chloride (Potassium Chloride Crtab 20 Meq Tabcr) 20 meq PO BID ABDI Stop: 01/01/23 20:59 Last Admin: 12/04/22 08:53 Dose: 20 meq Prednisone (Prednisone 10 Mg Tablet) 10 mg PO DAILY ABDI Stop: 12/31/22 08:59 Last Admin: 12/04/22 08:53 Dose: 10 mg Rivaroxaban (Rivaroxaban 20 Mg Tab) 20 mg PO HS ABDI Stop: 12/30/22 20:59 Last Admin: 12/03/22 21:26 Dose: 20 mg Trazodone HCl (Trazodone Hcl 50 Mg Tab) 150 mg PO QDD PRN PRN Reason: Sleep Stop: 12/30/22 14:30
[2022-12-04] MEDS: RIVAROXABAN 20 MG TAB PO SCH (20:35)
[2022-12-05] MEDS: LEVOTHYROXINE SODIUM 75 MCG TABLET PO SCH (05:35)
[2022-12-05] MEDS ORDERED: oxyCODONE HCL IR 5 MG TAB (IMMEDIATE RELEASE) PO PRN (06:13)
--- NOTE | 2022-12-05 06:14 | Communication Note ---
Date of Service: December 05, 2022 Patient passing blood clots in Holden catheter, pinkish tinged urine as per RN. Patient also complaining of bladder discomfort. AP Hematuria Urinary retention NOAC rx Rule out UTI Check UA CT abdomen pelvis Re: Hematuria Hold NOAC for now Will relay to AM provider.
[2022-12-05 07:12] LABS: Appearance Urine Cloudy (Clear); Bilirubin Urine Negative (Negative); Blood Urine 2+ (Negative); Color Urine Red; Glucose Urine UA Negative (Negative); Ketones Urine Negative (Negative); Leukocyte Esterase Urine 1+ (Negative); Nitrite Urine Negative (Negative); Protein Urine 3+ (Negative); Specific Gravity Urine 1.015 (1.000-1.030); Urobilinogen Urine Positive (Negative); pH Urine >= 9.0 (4.5-7.5)
[2022-12-05 07:42] LABS: RBC Urine >30 /hpf (0-4); WBC Urine >30 /hpf (0-5)
[2022-12-05 07:43] LABS: Bacteria Urine 3+ (Negative); Epithelial Cell Urine >30 /lpf (0-5)
[2022-12-05 08:08] LABS: Basophils # (auto) 0.08 K/uL (0-0.2); Eosinophils # (auto) 0.25 K/uL (0-0.50); Eosinophils % (auto) 3.1 %; Hematocrit (blood only) 42.8 % (42.0-52.0); Hemoglobin 14.1 g/dl (14.0-18.0); Immature Granulocytes # (auto) 0.03 K/uL (0.01-0.20); Immature Granulocytes % (auto) 0.4 %; Lymphocytes # (auto) 1.61 K/uL (1.2-3.4); Lymphocytes % (auto) 20.2 %; Mean Corpuscular Hemoglobin 28.4 pg (25.0-34.0); Mean Corpuscular Hgb Conc 32.9 g/dL (32.0-36.0); Mean Corpuscular Volume 86.3 fL (80.0-100.0); Mean Platelet Volume 8.2 fL (9.4-12.4); Monocytes # (auto) 0.67 K/uL (0.11-0.59); Monocytes % (auto) 8.4 %; Neutrophils # (auto) 5.33 K/uL (1.40-6.50); Neutrophils % (auto) 66.9 %; Platelet Count 241 K/uL (130-400); RDW Coefficient of Variation 14.3 % (11.5-14.5); RDW Standard Deviation 45.1 fL (36.4-46.3); Red Blood Count 4.96 M/uL (4.70-6.10); White Blood Count 7.97 K/ul (4.8-10.8)
[2022-12-05 08:11] LABS: BUN Creatinine Ratio 15.7 (10-20); Calcium 8.8 mg/dl (8.6-10.3); Creatinine Clr Calc Pharmacy 121.3 ml/min; Est GFR (African American) 84.8 ml/min; Est GFR (Non-African American) 73.2 ml/min; Magnesium 1.9 mg/dl (1.7-2.4)
[2022-12-05] MEDS: FLUoxetine HCL 10 MG CAP PO SCH (09:33)
[2022-12-05] MEDS: FUROSEMIDE 40 MG/4 ML VIAL IV SCH (09:34)
[2022-12-05] MEDS: GABAPENTIN 300 MG CAP PO SCH ×2 (09:34→20:27)
[2022-12-05] MEDS: METOPROLOL SUCC 50MG EXT REL TAB PO SCH (09:35)
[2022-12-05] MEDS: MAGNESIUM OXIDE 400 MG TAB PO SCH ×2 (09:35→20:27)
[2022-12-05] MEDS: PANTOprazole 40 MG TAB PO SCH (09:35)
--- NOTE | 2022-12-05 09:35 | CT Scan Report ---
CT abd pelvis wo con CLINICAL HISTORY: hematuria TECHNIQUE: Helical axial images of the abdomen and pelvis were obtained. Automated dose lowering tech niques and/or adjustment according to patient size were utilized for this exam. This exam was perfor med without intravenous contrast. CT DOSE: 1847.52 mGy.cm COMPARISON: Comparison is made to CT abdomen pelvis 09/10/2021 FINDINGS: Exam is limited by patient body habitus. Lower chest: Small left pleural effusion is seen with mild atelectasis. Liver: Unremarkable. No focal lesions are seen. Gallbladder and biliary tree: Patient is status post cholecystectomy. No intra- or extrahepatic bilia ry ductal dilation. Pancreas: Unremarkable, no focal lesions. Spleen: Unremarkable. Adrenals: Unremarkable. Kidneys and ureters: Perinephric stranding is noted bilaterally. Tiny nonobstructive stones are seen. Bladder: Holden catheter is seen. Reproductive organs: Unremarkable. Bowel: Postsurgical changes of gastric bypass surgery noted. There is a small hiatal hernia. The appe ndix is normal. Lymph nodes Retroperitoneal: Unremarkable. Pelvic: Unremarkable. Mesenteric: Unremarkable. Peritoneum: Normal. Vessels: Unremarkable. Abdominal wall: Mild soft tissue edema is seen. Bones: Degenerative changes in the visualized spine. IMPRESSION: No acute abnormalities and in particular no evidence of urothelial lesion. ACT 112: Negative or not required by law. Electronically signed by: David Mcclain M.D. 12/05/2022 9:33 AM
[2022-12-05] MEDS: POTASSIUM CHLORIDE CRTAB 20 MEQ TABCR PO SCH ×2 (09:36→20:27)
[2022-12-05] MEDS: predniSONE 10 MG TABLET PO SCH (09:37)
--- NOTE | 2022-12-05 11:33 | Cardiology Progress Note ---
Date of Service December 05, 2022 Assessment & Plan (1) Acute heart failure with preserved ejection fraction (HFpEF): (2) Chronic atrial fibrillation: (3) Bradycardia: (4) PHYLLIS (obstructive sleep apnea): Plan Patient admitted for acute HFpEF after non compliance with oral diuretics over the last few weeks. Evidence of volume overload on exam with worsening SOB, orthopnea, edema. Patient continues to demonstrate improvement with progressive weight loss but still with significant lower extremity edema and volume overload Continue furosemide to 40 mg IV daily. Continue chronic anticoagulation with Xarelto. Stop diltiazem indefinitely Increase metoprolol succinate to 75 mg twice per day Continue trial of obstructive sleep apnea treatment We will discontinue potassium begin spironolactone initially at 25 mg daily may need increase in dosing CHF instructions Admission and Anticipated Discharge Date Admission Date: November 30, 2022 Subjective Patient was seen and examined, chart, medications, telemetry reviewed. Continues to have brisk diuresis but still feels volume overloaded confirmed by exam. No further pauses on telemetry Trial CPAP last evening some struggles but willing to trial again Physical Exam Constitutional: WD/WN, vitals as above well nourished and + morbidly obese; no acute distress Neck: + thick neck Respiratory: normal respiratory effort; no respiratory distress and no labored breathing Auscultation: + diminished lung sounds (Bases bilateral) and + rales (Bases bilateral); no crackles, no rhonchi and no wheezes Cardiovascular: Rate/Rhythm: + irregularly irregular Heart Sounds: normal S1 and normal S2; no murmur Vessels: radial pulses present; no JVD and no carotid bruit Extremities: + edema (2+ pitting edema to the waist) Gastrointestinal (Abdomen): normal bowel sounds, soft, nontender, no hepatosplenomegaly Inspection/Auscultation: normal bowel sounds; abdomen not distended Percussion/Palpation: abdomen soft; abdomen nontender, no guarding and abdomen not rigid Neurologic: PERRL, EOMI, accommodation nl, no face palsy, no dysarthria CN's II-XI intact bilaterally and moves all extremities; no focal motor deficits Psychiatric: A+Ox3, euthymic affect Results & Data Vital Signs (Past 12 Hours) Vital Signs Temp Pulse Pulse Resp BP BP Pulse Ox 12/05/22 10:43 12/05/22 04:22 36.5 C 91 H 18 102/69 95 12/05/22 03:20 80 19 93 12/04/22 23:30 36.7 C 90 18 109/75 95 O2 Del Method FiO2 12/05/22 10:43 Room Air 12/05/22 04:22 CPAP 12/05/22 03:20 21 12/04/22 23:30 CPAP Laboratory Results Laboratory Results - last 24 hr 12/05/22 12/05/22 12/05/22 07:21 07:21 Unknown WBC 7.97 RBC 4.96 Hgb 14.1 Hct 42.8 MCV 86.3 MCH 28.4 MCHC 32.9 RDW Std Deviation 45.1 RDW Coeff of Phu 14.3 Plt Count 241 MPV 8.2 L Immature Gran % (Auto) 0.4 Neut % (Auto) 66.9 Lymph % (Auto) 20.2 [place] % (Auto) 8.4 Eos % (Auto) 3.1 Baso % (Auto) 1.0 Neut # (Auto) 5.33 Lymph # (Auto) 1.61 [place] # (Auto) 0.67 H Eos # (Auto) 0.25 Baso # (Auto) 0.08 Immature Gran # (Auto) 0.03 Sodium 139 Potassium 4.0 Chloride 98 Carbon Dioxide 35 H Anion Gap 6 BUN 17 Creatinine 1.08 Est Cr Clr Drug Dosing 121.3 Est GFR ( Amer) 84.8 Est GFR (Non-Af Amer) 73.2 BUN/Creatinine Ratio 15.7 Glucose 96 Calcium 8.8 Magnesium 1.9 Urine Color Red Urine Appearance Cloudy A Urine pH >= 9.0 H Ur Specific [place] 1.015 Urine Protein 3+ H Urine Glucose (UA) Negative Urine Ketones Negative Urine Blood 2+ H Urine Nitrite Negative Urine Bilirubin Negative Urine Urobilinogen Positive H Ur Leukocyte Esterase 1+ H Urine RBC >30 H Urine WBC >30 H Ur Epithelial Cells >30 H Urine Bacteria 3+ H
[2022-12-05] MEDS: SPIRONOLACTONE 25 MG TAB PO SCH (12:14)
--- NOTE | 2022-12-05 15:15 | Hospitalist Progress Note ---
Date of Service December 05, 2022 Assessment & Plan (1) Acute heart failure with preserved ejection fraction (HFpEF): Plan: 62 y/o male with a history of atrial fibrillation on chronic AC, HTN, hypothyroidism, GERD, morbid obesity, s/p gastric bypass, osteomyelitis and discitis L2-L3 in 2021, CAD, and sleep apnea who presents to the ED today via EMS due to worsening shortness of breath with any exertion x 3 days. Admitted with acute exacerbation of CHF. Chest x-ray and EKG personally reviewed. He received furosemide 40 mg IV x 1 in the ED. -Echo reviewed, telemetry reviewed, c -Continue IV Lasix 40 twice daily on admission, now changed to daily per cardiology from 12/04. -Continues to diurese well about net negative of 6L a day. Wt now seems to be at baseline. Continue daily weight, strict I and O's, fluid restriction of 1500 cc -Daily labs. Cr has remained stable at 1.1 with continued diuresis and metabolic alkalosis Remove Holden. Trial of void. (2) Atrial fibrillation with RVR: Plan: Rate controlled but had significant pauses overnight on telemetry 6.3-second long on 12/02 around 3 AM. Discussed with cardiology-suspected due to AV zoila blocking agents in setting of sleep apnea. Agreeable to trial of CPAP- [facility] from [facility] Discontinue Cardizem indefinitely. Increase metoprolol dose No pause on telemetry since since 12/02. Outpatient sleep study evaluation. Will need nocturnal oxygen at discharge. (3) Hypothyroidism: Plan: Continue Synthroid, repeat TFTs outpatient with PCP for further adjustment (4) Hypertension: Plan: BP low normal, Cardizem stopped. Continue on metoprolol (5) Morbid obesity: Plan: BMI 64. Weight loss recommended. Follow-up with PCP (6) History of discitis: Plan: Patient has been on chronic suppressive ampicillin 1000 mg 3 times daily for past 6 months after 8 weeks of IV antibiotics for his discitis. He was evaluated by infectious disease today who recommended no further need for chronic therapy or chronic suppression and recommended stopping ampicillin. Also stated no further management or follow-up needed from ID Plan DVT prophylaxis-Xarelto on hold due to hematuria. Will resume tomorrow if urine continues to clear. Disposition-pending volume optimization, continue IV Lasix. Anticipate 1-2 more days. Time spent evaluating patient, direct bedside care, chart review, placing orders, interpretation of diagnostic studies, discussion with consultants, patient, and family members, as well as other required patient management activities is 60 minutes. Please note the above document was generated using voice recognition software. It may contain grammatical, syntax or spelling errors. Any formal questions or concerns about the content, text or information contained within the body of this dictation should be directly addressed to the provider for clarification Admission and Anticipated Discharge Date Admission Date: November 30, 2022 Subjective Patient seen and examined at bedside. He is comfortable lying in the bed; not in any distress. Concern for hematuria overnight. However, urine looks clear today morning. CT abdomen pelvis done; no acute finding. Review of Systems Review of Systems: All systems reviewed & are unremarkable except as noted in Subjective Physical Exam Physical Exam: General: Morbidly obese male, lying comfortably in bed, not in distress, on room air HEENT: EOMI, KATHLEEN, MMM Chest: Diminished breath sounds at bases. CVS: Irregular, normal heart sounds, no murmur Abdomen: Soft, non tender, not distended, normal bowel sounds Neuro: Awake, alert, oriented, conversing well, non focal Extremities: No cyanosis, clubbing, trace pitting edema present Results & Data Results & Data Vital Signs (Past 12 Hours) Vital Signs Temp Pulse Pulse Resp BP BP Pulse Ox 12/05/22 12:57 80 12/05/22 12:18 93 H 102/70 95 12/05/22 08:00 36.8 C 92 H 22 104/71 92 12/05/22 10:43 12/05/22 04:22 36.5 C 91 H 18 102/69 95 12/05/22 03:20 80 19 93 O2 Del Method FiO2 12/05/22 12:57 12/05/22 12:18 Room Air 12/05/22 08:00 Room Air 12/05/22 10:43 Room Air 12/05/22 04:22 CPAP 12/05/22 03:20 21 Laboratory Results Laboratory Results WBC 7.97 K/ul (4.8-10.8) 12/05/22 07:21 RBC 4.96 M/uL (4.70-6.10) 12/05/22 07:21 Hgb 14.1 g/dl (14.0-18.0) 12/05/22 07:21 Hct 42.8 % (42.0-52.0) 12/05/22 07:21 MCV 86.3 fL (80.0-100.0) 12/05/22 07:21 MCH 28.4 pg (25.0-34.0) 12/05/22 07:21 MCHC 32.9 g/dL (32.0-36.0) 12/05/22 07:21 RDW Std Deviation 45.1 fL (36.4-46.3) 12/05/22 07:21 RDW Coeff of Phu 14.3 % (11.5-14.5) 12/05/22 07:21 Plt Count 241 K/uL (130-400) 12/05/22 07:21 MPV 8.2 fL (9.4-12.4) L 12/05/22 07:21 Immature Gran % (Auto) 0.4 % 12/05/22 07:21 Neut % (Auto) 66.9 % 12/05/22 07:21 Lymph % (Auto) 20.2 % 12/05/22 07:21 [place] % (Auto) 8.4 % 12/05/22 07:21 Eos % (Auto) 3.1 % 12/05/22 07:21 Baso % (Auto) 1.0 % 12/05/22 07:21 Neut # (Auto) 5.33 K/uL (1.40-6.50) 12/05/22 07:21 Lymph # (Auto) 1.61 K/uL (1.2-3.4) 12/05/22 07:21 [place] # (Auto) 0.67 K/uL (0.11-0.59) H 12/05/22 07:21 Eos # (Auto) 0.25 K/uL (0-0.50) 12/05/22 07:21 Baso # (Auto) 0.08 K/uL (0-0.2) 12/05/22 07:21 Immature Gran # (Auto) 0.03 K/uL (0.01-0.20) 12/05/22 07:21 PT 15.1 Seconds (9.0-12.0) H 11/30/22 09:38 INR 1.4 (0.9-1.1) H 11/30/22 09:38 APTT 39.9 Seconds (21.0-31.0) H 12/02/22 02:37 PTT Ratio 1.4 12/02/22 02:37 Sodium 139 mmol/L (136-145) 12/05/22 07:21 Potassium 4.0 mmol/L (3.5-5.1) 12/05/22 07:21 Chloride 98 mmol/L (98-107) 12/05/22 07:21 Carbon Dioxide 35 mmol/L (21-32) H 12/05/22 07:21 Anion Gap 6 (3-11) 12/05/22 07:21 BUN 17 mg/dl (6-23) 12/05/22 07:21 Creatinine 1.08 mg/dl (0.6-1.4) 12/05/22 07:21 Est Cr Clr Drug Dosing 121.3 ml/min 12/05/22 07:21 Est GFR ( Amer) 84.8 ml/min 12/05/22 07:21 Est GFR (Non-Af Amer) 73.2 ml/min 12/05/22 07:21 BUN/Creatinine Ratio 15.7 (10-20) 12/05/22 07:21 Glucose 96 mg/dl (70-99(Fasting)) 12/05/22 07:21 Lactate 1.1 mmol/L (0.4-2.0) 12/02/22 02:37 Calcium 8.8 mg/dl (8.6-10.3) 12/05/22 07:21 Magnesium 1.9 mg/dl (1.7-2.4) 12/05/22 07:21 Troponin I High Sens 10.3 pg/ml (0-20) 11/30/22 14:57 B-Natriuretic Peptide 411 pg/ml (0-100) H 11/30/22 09:38 TSH 7.466 uIu/ml (0.300-4.500) H 11/30/22 09:38 Urine Color Red 12/05/22 Unknown Urine Appearance Cloudy (Clear) A 12/05/22 Unknown Urine pH >= 9.0 (4.5-7.5) H 12/05/22 Unknown Ur Specific [place] 1.015 (1.000-1.030) 12/05/22 Unknown Urine Protein 3+ (Negative) H 12/05/22 Unknown Urine Glucose (UA) Negative (Negative) 12/05/22 Unknown Urine Ketones Negative (Negative) 12/05/22 Unknown Urine Blood 2+ (Negative) H 12/05/22 Unknown Urine Nitrite Negative (Negative) 12/05/22 Unknown Urine Bilirubin Negative (Negative) 12/05/22 Unknown Urine Urobilinogen Positive (Negative) H 12/05/22 Unknown Ur Leukocyte Esterase 1+ (Negative) H 12/05/22 Unknown Urine RBC >30 /hpf (0-4) H 12/05/22 Unknown Urine WBC >30 /hpf (0-5) H 12/05/22 Unknown Ur Epithelial Cells >30 /lpf (0-5) H 12/05/22 Unknown Urine Bacteria 3+ (Negative) H 12/05/22 Unknown SARS-CoV-2, RNA, NAAT NEGATIVE (NEGATIVE) 11/30/22 Unknown Impressions Chest X-Ray 11/30/22 09:35 XR chest 1V portable HISTORY: 62 years-old Male shob acute chest pain shortness of breath COMPARISON: 09/19/2021 TECHNIQUE: AP view the chest FINDINGS: Cardiac silhouette is enlarged. No pneumothorax, pleural effusion, airspace consolidation or pulmonary edema. Bones appear grossly intact. IMPRESSION: Cardiomegaly without acute process. ACT 112: Negative or not required by law. The above report was generated using voice recognition software. It may contain grammatical, syntax or spelling errors. Electronically signed by: Mack Andrade M.D. 11/30/2022 11:02 AM Abdomen/Pelvis CT 12/05/22 06:14 CT abd pelvis wo con CLINICAL HISTORY: hematuria TECHNIQUE: Helical axial images of the abdomen and pelvis were obtained. Automated dose lowering techniques and/or adjustment according to patient size were utilized for this exam. This exam was performed without intravenous contrast. CT DOSE: 1847.52 mGy.cm COMPARISON: Comparison is made to CT abdomen pelvis 09/10/2021 FINDINGS: Exam is limited by patient body habitus. Lower chest: Small left pleural effusion is seen with mild atelectasis. Liver: Unremarkable. No focal lesions are seen. Gallbladder and biliary tree: Patient is status post cholecystectomy. No intra- or extrahepatic biliary ductal dilation. Pancreas: Unremarkable, no focal lesions. Spleen: Unremarkable. Adrenals: Unremarkable. Kidneys and ureters: Perinephric stranding is noted bilaterally. Tiny nonobstructive stones are seen. Bladder: Holden catheter is seen. Reproductive organs: Unremarkable. Bowel: Postsurgical changes of gastric bypass surgery noted. There is a small hiatal hernia. The appendix is normal. Lymph nodes Retroperitoneal: Unremarkable. Pelvic: Unremarkable. Mesenteric: Unremarkable. Peritoneum: Normal. Vessels: Unremarkable. Abdominal wall: Mild soft tissue edema is seen. Bones: Degenerative changes in the visualized spine. IMPRESSION: No acute abnormalities and in particular no evidence of urothelial lesion. ACT 112: Negative or not required by law. Electronically signed by: David Mcclain M.D. 12/05/2022 9:33 AM
[2022-12-05] MEDS ORDERED: METOPROLOL SUCC 50MG EXT REL TAB PO SCH (21:00)
--- NOTE | 2022-12-06 00:11 | Communication Note ---
Date of Service: December 06, 202212/05, 11:40 PM Notified by RN of episodic bradycardia, heart rate 30s while patient sleeping. AP Episodic bradycardia Decrease Toprol-XL from 75 mg BID to 50 mg BID until patient be evaluated by Cardiology in AM.
[2022-12-06] MEDS: LEVOTHYROXINE SODIUM 75 MCG TABLET PO SCH (05:35)
[2022-12-06 05:54] LABS: Basophils # (auto) 0.08 K/uL (0-0.2); Eosinophils % (auto) 3.6 %; Hematocrit (blood only) 44.8 % (42.0-52.0); Hemoglobin 14.3 g/dl (14.0-18.0); Immature Granulocytes # (auto) 0.02 K/uL (0.01-0.20); Immature Granulocytes % (auto) 0.2 %; Lymphocytes % (auto) 22.6 %; Mean Corpuscular Hemoglobin 28.5 pg (25.0-34.0); Mean Corpuscular Hgb Conc 31.9 g/dL (32.0-36.0); Mean Corpuscular Volume 89.4 fL (80.0-100.0); Mean Platelet Volume 8.2 fL (9.4-12.4); Monocytes # (auto) 0.62 K/uL (0.11-0.59); Monocytes % (auto) 7.4 %; Neutrophils # (auto) 5.47 K/uL (1.40-6.50); Neutrophils % (auto) 65.2 %; Platelet Count 227 K/uL (130-400); RDW Coefficient of Variation 14.3 % (11.5-14.5); RDW Standard Deviation 46.7 fL (36.4-46.3); Red Blood Count 5.01 M/uL (4.70-6.10); White Blood Count 8.39 K/ul (4.8-10.8)
[2022-12-06 06:12] LABS: BUN Creatinine Ratio 16.1 (10-20); Calcium 8.8 mg/dl (8.6-10.3); Creatinine Clr Calc Pharmacy 104.8 ml/min; Est GFR (African American) 71.8 ml/min; Est GFR (Non-African American) 61.9 ml/min; Potassium 4.4 mmol/L (3.5-5.1)
[2022-12-06] MEDS: FUROSEMIDE 40 MG/4 ML VIAL IV SCH (09:14)
[2022-12-06] MEDS: FLUoxetine HCL 10 MG CAP PO SCH (09:14)
[2022-12-06] MEDS: PANTOprazole 40 MG TAB PO SCH (09:14)
[2022-12-06] MEDS: METOPROLOL SUCC 50MG EXT REL TAB PO SCH ×4 (09:15→20:31)
[2022-12-06] MEDS: GABAPENTIN 300 MG CAP PO SCH ×2 (09:15→20:31)
[2022-12-06] MEDS: MAGNESIUM OXIDE 400 MG TAB PO SCH ×2 (09:15→20:32)
[2022-12-06] MEDS: POTASSIUM CHLORIDE CRTAB 20 MEQ TABCR PO SCH ×2 (09:15→20:30)
[2022-12-06] MEDS: predniSONE 10 MG TABLET PO SCH (09:16)
[2022-12-06] MEDS: SPIRONOLACTONE 25 MG TAB PO SCH (09:17)
--- NOTE | 2022-12-06 09:23 | Cardiology Progress Note ---
Date of Service December 06, 2022 Assessment & Plan (1) Acute heart failure with preserved ejection fraction (HFpEF): (2) Chronic atrial fibrillation: (3) Bradycardia: (4) PHYLLIS (obstructive sleep apnea): Plan Patient admitted for acute HFpEF after non compliance with oral diuretics over the last few weeks. Evidence of volume overload on exam with worsening SOB, orthopnea, edema. Patient continues to demonstrate improvement with progressive weight loss but still with significant lower extremity edema and volume overload Continue furosemide to 40 mg IV daily. Continue chronic anticoagulation with Xarelto. Stop diltiazem indefinitely Increase metoprolol succinate to 75 mg twice per day Continue trial of obstructive sleep apnea treatment We will discontinue potassium begin spironolactone initially at 25 mg daily may need increase in dosing CHF instructions 12/06/2022 Patient continues to demonstrate diuresis. Transient bradycardia last evening while sleeping. Metoprolol succinate reduced back to 50 mg twice per day we will continue this dose Plan on transitioning diuretics to oral in a.m. Continue spironolactone Patient on gabapentin and prednisone indications for long-term use should be addressed Admission and Anticipated Discharge Date Admission Date: November 30, 2022 Subjective Patient seen and examined, chart, medications, telemetry reviewed. Continues to have brisk diuresis Did trial CPAP last night with partial use. No chest pains, tachypalpitations no dizziness. Weight down nearly 20 kg Review of Systems Review of Systems: All systems reviewed & are unremarkable except as noted in Subjective Physical Exam Constitutional: WD/WN, vitals as above well nourished and + morbidly obese; no acute distress ENMT: external ear and nose normal, oropharynx normal Neck: + thick neck Respiratory: normal respiratory effort; no respiratory distress and no labored breathing Auscultation: + diminished lung sounds (Bases bilateral); no crackles, no rhonchi and no wheezes Cardiovascular: Rate/Rhythm: + irregularly irregular Heart Sounds: normal S1 and normal S2; no murmur Vessels: radial pulses present; no JVD and no carotid bruit Extremities: + edema (Improving but still 2+) Gastrointestinal (Abdomen): normal bowel sounds, soft, nontender, no hepatosplenomegaly Inspection/Auscultation: normal bowel sounds; abdomen not distended Percussion/Palpation: abdomen soft; abdomen nontender, no guarding and abdomen not rigid Neurologic: PERRL, EOMI, accommodation nl, no face palsy, no dysarthria CN's II-XI intact bilaterally and moves all extremities; no focal motor deficits Psychiatric: A+Ox3, euthymic affect Results & Data Vital Signs (Past 12 Hours) Vital Signs Temp Pulse Pulse Resp BP Pulse Ox O2 Del Method 12/06/22 08:21 36.7 C 92 H 20 115/70 94 Room Air 12/06/22 03:00 36.7 C 82 18 115/77 99 Room Air 12/05/22 23:40 91 H 112/78 12/05/22 23:00 36.5 C 85 22 106/71 93 Room Air 12/05/22 22:39 91 H 12/05/22 22:14 95 H 15 92 FiO2 12/06/22 08:21 12/06/22 03:00 12/05/22 23:40 12/05/22 23:00 12/05/22 22:39 12/05/22 22:14 21 Laboratory Results Laboratory Results - last 24 hr 12/06/22 12/06/22 05:25 05:25 WBC 8.39 RBC 5.01 Hgb 14.3 Hct 44.8 MCV 89.4 MCH 28.5 MCHC 31.9 L RDW Std Deviation 46.7 H RDW Coeff of Phu 14.3 Plt Count 227 MPV 8.2 L Immature Gran % (Auto) 0.2 Neut % (Auto) 65.2 Lymph % (Auto) 22.6 [place] % (Auto) 7.4 Eos % (Auto) 3.6 Baso % (Auto) 1.0 Neut # (Auto) 5.47 Lymph # (Auto) 1.90 [place] # (Auto) 0.62 H Eos # (Auto) 0.30 Baso # (Auto) 0.08 Immature Gran # (Auto) 0.02 Sodium 139 Potassium 4.4 Chloride 97 L Carbon Dioxide 39 H Anion Gap 3 BUN 20 Creatinine 1.24 Est Cr Clr Drug Dosing 104.8 Est GFR ( Amer) 71.8 Est GFR (Non-Af Amer) 61.9 BUN/Creatinine Ratio 16.1 Glucose 94 Calcium 8.8 Magnesium 2.0
--- NOTE | 2022-12-06 12:07 | Hospitalist Progress Note ---
Date of Service December 06, 2022 Assessment & Plan (1) Acute heart failure with preserved ejection fraction (HFpEF): Plan: 62 y/o male with a history of atrial fibrillation on chronic AC, HTN, hypothyroidism, GERD, morbid obesity, s/p gastric bypass, osteomyelitis and discitis L2-L3 in 2021, CAD, and sleep apnea who presents to the ED today via EMS due to worsening shortness of breath with any exertion x 3 days. Admitted with acute exacerbation of CHF. Chest x-ray and EKG personally reviewed. -Echo reviewed, telemetry reviewed, c -Continues to diurese well about net negative of 6L a day. Wt now seems to be at baseline. Continue daily weight, strict I and O's, fluid restriction of 1500 cc -Daily labs. Cr has remained stable at 1.1 with continued diuresis and metabolic alkalosis Remove Holden. (2) Atrial fibrillation with RVR: Plan: Rate controlled but had significant pauses overnight on telemetry 6.3-second long on 12/02 around 3 AM. Discussed with cardiology-suspected due to AV zoila blocking agents in setting of sleep apnea. Agreeable to trial of CPAP- ordered from [facility] Discontinue Cardizem indefinitely. Metoprolol dose was initially increased to 75 mg twice daily; patient was bradycardic overnight. So, doses were changed back to 50 mg twice daily. No pause on telemetry since since 12/02. Outpatient sleep study evaluation. Will need nocturnal oxygen at discharge. (3) Hypothyroidism: Plan: Continue Synthroid, repeat TFTs outpatient with PCP for further adjustment (4) Hypertension: Plan: BP low normal, Cardizem stopped. Continue on metoprolol (5) Morbid obesity: Plan: BMI 64. Weight loss recommended. Follow-up with PCP (6) History of discitis: Plan: Patient has been on chronic suppressive ampicillin 1000 mg 3 times daily for past 6 months after 8 weeks of IV antibiotics for his discitis. He was evaluated by infectious disease today who recommended no further need for chronic therapy or chronic suppression and recommended stopping ampicillin. Also stated no further management or follow-up needed from ID Plan DVT prophylaxis-Xarelto Disposition-pending volume optimization, continue IV Lasix. Anticipate 1-2 more days. Time spent evaluating patient, direct bedside care, chart review, placing orders, interpretation of diagnostic studies, discussion with consultants, patient, and family members, as well as other required patient management activities is 60 minutes. Please note the above document was generated using voice recognition software. It may contain grammatical, syntax or spelling errors. Any formal questions or concerns about the content, text or information contained within the body of this dictation should be directly addressed to the provider for clarification Admission and Anticipated Discharge Date Admission Date: November 30, 2022 Subjective Patient seen and examined at bedside. Urine output of nearly 5 L in last 24 hours. -33 L since admission. Review of Systems Review of Systems: All systems reviewed & are unremarkable except as noted in Subjective Physical Exam Physical Exam: General: Morbidly obese male, lying comfortably in bed, not in distress, on room air HEENT: EOMI, KATHLEEN, MMM Chest: Diminished breath sounds at bases. CVS: Irregular, normal heart sounds, no murmur Abdomen: Soft, non tender, not distended, normal bowel sounds Neuro: Awake, alert, oriented, conversing well, non focal Extremities: No cyanosis, clubbing, trace pitting edema present Results & Data Results & Data Vital Signs (Past 12 Hours) Vital Signs Temp Pulse Resp BP Pulse Ox O2 Del Method 12/06/22 08:21 36.7 C 92 H 20 115/70 94 Room Air 12/06/22 03:00 36.7 C 82 18 115/77 99 Room Air Laboratory Results Laboratory Results WBC 8.39 K/ul (4.8-10.8) 12/06/22 05:25 RBC 5.01 M/uL (4.70-6.10) 12/06/22 05:25 Hgb 14.3 g/dl (14.0-18.0) 12/06/22 05:25 Hct 44.8 % (42.0-52.0) 12/06/22 05:25 MCV 89.4 fL (80.0-100.0) 12/06/22 05:25 MCH 28.5 pg (25.0-34.0) 12/06/22 05:25 MCHC 31.9 g/dL (32.0-36.0) L 12/06/22 05:25 RDW Std Deviation 46.7 fL (36.4-46.3) H 12/06/22 05:25 RDW Coeff of Phu 14.3 % (11.5-14.5) 12/06/22 05:25 Plt Count 227 K/uL (130-400) 12/06/22 05:25 MPV 8.2 fL (9.4-12.4) L 12/06/22 05:25 Immature Gran % (Auto) 0.2 % 12/06/22 05:25 Neut % (Auto) 65.2 % 12/06/22 05:25 Lymph % (Auto) 22.6 % 12/06/22 05:25 [place] % (Auto) 7.4 % 12/06/22 05:25 Eos % (Auto) 3.6 % 12/06/22 05:25 Baso % (Auto) 1.0 % 12/06/22 05:25 Neut # (Auto) 5.47 K/uL (1.40-6.50) 12/06/22 05:25 Lymph # (Auto) 1.90 K/uL (1.2-3.4) 12/06/22 05:25 [place] # (Auto) 0.62 K/uL (0.11-0.59) H 12/06/22 05:25 Eos # (Auto) 0.30 K/uL (0-0.50) 12/06/22 05:25 Baso # (Auto) 0.08 K/uL (0-0.2) 12/06/22 05:25 Immature Gran # (Auto) 0.02 K/uL (0.01-0.20) 12/06/22 05:25 PT 15.1 Seconds (9.0-12.0) H 11/30/22 09:38 INR 1.4 (0.9-1.1) H 11/30/22 09:38 APTT 39.9 Seconds (21.0-31.0) H 12/02/22 02:37 PTT Ratio 1.4 12/02/22 02:37 Sodium 139 mmol/L (136-145) 12/06/22 05:25 Potassium 4.4 mmol/L (3.5-5.1) 12/06/22 05:25 Chloride 97 mmol/L (98-107) L 12/06/22 05:25 Carbon Dioxide 39 mmol/L (21-32) H 12/06/22 05:25 Anion Gap 3 (3-11) 12/06/22 05:25 BUN 20 mg/dl (6-23) 12/06/22 05:25 Creatinine 1.24 mg/dl (0.6-1.4) 12/06/22 05:25 Est Cr Clr Drug Dosing 104.8 ml/min 12/06/22 05:25 Est GFR ( Amer) 71.8 ml/min 12/06/22 05:25 Est GFR (Non-Af Amer) 61.9 ml/min 12/06/22 05:25 BUN/Creatinine Ratio 16.1 (10-20) 12/06/22 05:25 Glucose 94 mg/dl (70-99(Fasting)) 12/06/22 05:25 Lactate 1.1 mmol/L (0.4-2.0) 12/02/22 02:37 Calcium 8.8 mg/dl (8.6-10.3) 12/06/22 05:25 Magnesium 2.0 mg/dl (1.7-2.4) 12/06/22 05:25 Troponin I High Sens 10.3 pg/ml (0-20) 11/30/22 14:57 B-Natriuretic Peptide 411 pg/ml (0-100) H 11/30/22 09:38 TSH 7.466 uIu/ml (0.300-4.500) H 11/30/22 09:38 Urine Color Red 12/05/22 Unknown Urine Appearance Cloudy (Clear) A 12/05/22 Unknown Urine pH >= 9.0 (4.5-7.5) H 12/05/22 Unknown Ur Specific [place] 1.015 (1.000-1.030) 12/05/22 Unknown Urine Protein 3+ (Negative) H 12/05/22 Unknown Urine Glucose (UA) Negative (Negative) 12/05/22 Unknown Urine Ketones Negative (Negative) 12/05/22 Unknown Urine Blood 2+ (Negative) H 12/05/22 Unknown Urine Nitrite Negative (Negative) 12/05/22 Unknown Urine Bilirubin Negative (Negative) 12/05/22 Unknown Urine Urobilinogen Positive (Negative) H 12/05/22 Unknown Ur Leukocyte Esterase 1+ (Negative) H 12/05/22 Unknown Urine RBC >30 /hpf (0-4) H 12/05/22 Unknown Urine WBC >30 /hpf (0-5) H 12/05/22 Unknown Ur Epithelial Cells >30 /lpf (0-5) H 12/05/22 Unknown Urine Bacteria 3+ (Negative) H 12/05/22 Unknown SARS-CoV-2, RNA, NAAT NEGATIVE (NEGATIVE) 11/30/22 Unknown Impressions Chest X-Ray 11/30/22 09:35 XR chest 1V portable HISTORY: 62 years-old Male shob acute chest pain shortness of breath COMPARISON: 09/19/2021 TECHNIQUE: AP view the chest FINDINGS: Cardiac silhouette is enlarged. No pneumothorax, pleural effusion, airspace consolidation or pulmonary edema. Bones appear grossly intact. IMPRESSION: Cardiomegaly without acute process. ACT 112: Negative or not required by law. The above report was generated using voice recognition software. It may contain grammatical, syntax or spelling errors. Electronically signed by: Mack Andrade M.D. 11/30/2022 11:02 AM Abdomen/Pelvis CT 12/05/22 06:14 CT abd pelvis wo con CLINICAL HISTORY: hematuria TECHNIQUE: Helical axial images of the abdomen and pelvis were obtained. Automated dose lowering techniques and/or adjustment according to patient size were utilized for this exam. This exam was performed without intravenous contrast. CT DOSE: 1847.52 mGy.cm COMPARISON: Comparison is made to CT abdomen pelvis 09/10/2021 FINDINGS: Exam is limited by patient body habitus. Lower chest: Small left pleural effusion is seen with mild atelectasis. Liver: Unremarkable. No focal lesions are seen. Gallbladder and biliary tree: Patient is status post cholecystectomy. No intra- or extrahepatic biliary ductal dilation. Pancreas: Unremarkable, no focal lesions. Spleen: Unremarkable. Adrenals: Unremarkable. Kidneys and ureters: Perinephric stranding is noted bilaterally. Tiny nonobstructive stones are seen. Bladder: Holden catheter is seen. Reproductive organs: Unremarkable. Bowel: Postsurgical changes of gastric bypass surgery noted. There is a small hiatal hernia. The appendix is normal. Lymph nodes Retroperitoneal: Unremarkable. Pelvic: Unremarkable. Mesenteric: Unremarkable. Peritoneum: Normal. Vessels: Unremarkable. Abdominal wall: Mild soft tissue edema is seen. Bones: Degenerative changes in the visualized spine. IMPRESSION: No acute abnormalities and in particular no evidence of urothelial lesion. ACT 112: Negative or not required by law. Electronically signed by: David Mcclain M.D. 12/05/2022 9:33 AM
[2022-12-06] MEDS: cefTRIAXone SODIUM 2,000 MG in DEXTROSE 5% 50 ML IV SCH (14:19)
[2022-12-06] MEDS: RIVAROXABAN 20 MG TAB PO SCH (20:31)
[2022-12-07] MEDS: LEVOTHYROXINE SODIUM 75 MCG TABLET PO SCH (05:29)
[2022-12-07 08:28] LABS: BUN Creatinine Ratio 17.6 (10-20); Calcium 8.8 mg/dl (8.6-10.3); Creatinine Clr Calc Pharmacy 118.3 ml/min; Est GFR (African American) 84.8 ml/min; Est GFR (Non-African American) 73.2 ml/min; Magnesium 1.9 mg/dl (1.7-2.4); Potassium 4.1 mmol/L (3.5-5.1)
[2022-12-07] MEDS: PANTOprazole 40 MG TAB PO SCH (08:38)
[2022-12-07] MEDS: METOPROLOL SUCC 50MG EXT REL TAB PO SCH ×2 (08:39→20:57)
[2022-12-07] MEDS: POTASSIUM CHLORIDE CRTAB 20 MEQ TABCR PO SCH ×2 (08:39→20:56)
[2022-12-07] MEDS: GABAPENTIN 300 MG CAP PO SCH ×2 (08:40→20:57)
[2022-12-07] MEDS: MAGNESIUM OXIDE 400 MG TAB PO SCH ×2 (08:40→20:56)
[2022-12-07] MEDS: predniSONE 10 MG TABLET PO SCH (08:40)
[2022-12-07] MEDS: FLUoxetine HCL 10 MG CAP PO SCH (08:40)
[2022-12-07] MEDS: SPIRONOLACTONE 25 MG TAB PO SCH (08:41)
--- NOTE | 2022-12-07 09:32 | Cardiology Progress Note ---
Date of Service December 07, 2022 Assessment & Plan (1) Acute heart failure with preserved ejection fraction (HFpEF): (2) Chronic atrial fibrillation: (3) Bradycardia: (4) PHYLLIS (obstructive sleep apnea): Plan IMPRESSION: Patient admitted for acute HFpEF/RHF after non compliance with oral diuretics over the last few weeks. Evidence on admission of volume overload on exam with worsening SOB, orthopnea, edema. Patient continues to demonstrate improvement with progressive weight loss, lower extremity edema improved. PLAN: Transition IV Lasix to oral Torsemide 20 mg daily today. Continue Spironolactone 25 mg daily. BMP in am. CHF Education. Remain off Diltiazem indefinitely due to acute CHF exacerbation. Continue Metoprolol succinate 50 mg twice daily- consider increase as an outpatient. Transient bradycardia and pauses during sleep hours likely exacerbated by uncontrolled PHYLLIS- continue CPAP/O2 therapy during sleep hours. Patient on gabapentin and prednisone indications for long-term use should be addressed. Case discussed with Dr. Blanchard. Will continue to monitor. Admission and Anticipated Discharge Date Admission Date: November 30, 2022 Supervising Physician Co-Signing Physician Notes Patient was seen and personally examined. Patient notes clinical improvement and demonstrates persistent diuresis IV furosemide switched to oral torsemide today Continue spironolactone Significant [place] morbid obesity contributing. Requirement of oxygen likely, CPAP if ever tolerant CHF instruction given Subjective 62-year-old male initially presented to [facility] for acute on chronic HFpEF in the setting of noncompliance with oral diuretics times a few weeks. Patient has responded well to IV diuretics with a decline of about 40 pounds this admission. Currently receiving IV Lasix 40 mg daily and spironolactone 25 mg daily (started 12/05). Renal function has remained stable. Diltiazem was discontinued and metoprolol succinate was increased to 75 mg daily. Patient had an episode of transient bradycardia while sleeping-metoprolol was again reduced to 50 mg twice daily on 12/06. He has significant sleep apnea and is noncompliant on CPAP at home but has been wearing and tolerating generally well while inpatient. TELE: AFIB 80-90s, no significant bradycardia/pauses over night (60-80s) I&O: -37.3L WEIGHT: 206.4 kg>>188.9 kg Upon entrance into the room patient resting comfortably in bed. HOB minimally elevated. No orthopnea. Notes significant improvement in his breathing at rest and with exertion. Not requiring supplemental o2 with activity. Continues to have difficulty tolerating CPAP- had to take off half way thru the night and switch to O2 alone. Has mild lower extremity edema, improved. No abdominal bloating. Denies chest pain or palpitations. No lightheadedness. Expressed concern for possible discharge today and hopeful to spend another night. Review of Systems Review of Systems: All systems reviewed & are unremarkable except as noted in HPI & below Physical Exam Constitutional: WD/WN, vitals as above well nourished and + morbidly obese; no acute distress ENMT: external ear and nose normal, oropharynx normal Neck: + thick neck Respiratory: normal respiratory effort; no respiratory distress and no labored breathing Auscultation: + diminished lung sounds (Bases bilateral) and + rales (Bases bilateral); no crackles, no rhonchi and no wheezes Cardiovascular: Rate/Rhythm: + irregularly irregular Heart Sounds: normal S1 and normal S2; no murmur Vessels: radial pulses present; no JVD and no carotid bruit Extremities: + edema (Improving, 1+ BL) Gastrointestinal (Abdomen): normal bowel sounds, soft, nontender, no hepatosplenomegaly Inspection/Auscultation: normal bowel sounds; abdomen not distended Percussion/Palpation: abdomen soft; abdomen nontender, no guarding and abdomen not rigid Neurologic: PERRL, EOMI, accommodation nl, no face palsy, no dysarthria CN's II-XI intact bilaterally and moves all extremities; no focal motor deficits Psychiatric: A+Ox3, euthymic affect Results & Data Vital Signs (Past 12 Hours) Vital Signs Temp Pulse Pulse Resp BP Pulse Ox O2 Del Method 12/07/22 07:49 37.3 C 86 18 113/72 91 Room Air 12/07/22 07:41 Room Air 12/07/22 03:57 36.4 C L 91 H 18 121/84 98 CPAP 12/06/22 23:11 36.7 C 93 H 18 113/79 92 CPAP 12/06/22 22:30 84 12 93 12/06/22 22:32 89 FiO2 12/07/22 07:49 12/07/22 07:41 12/07/22 03:57 12/06/22 23:11 12/06/22 22:30 21 12/06/22 22:32 Laboratory Results Comprehensive Metabolic Panel 12/07/22 Range/Units 07:56 Sodium 138 (136-145) mmol/L Potassium 4.1 (3.5-5.1) mmol/L Chloride 98 (98-107) mmol/L Carbon Dioxide 35 H (21-32) mmol/L BUN 19 (6-23) mg/dl Creatinine 1.08 (0.6-1.4) mg/dl Glucose 89 (70-99(Fasting)) mg/dl Calcium 8.8 (8.6-10.3) mg/dl Intake and Output 12/06/22 12/07/22 12/07/22 22:59 06:59 14:59 Intake Total 70 / 790 Output Total 275 / 5575 700 / 5575 Balance -205 / -4785 -700 / -1485 Intake: IV 70 / 70 cefTRIAXone SODIUM 2,000 mg In 70 / 70 Dextrose 5% 50 ml @ 100 mls/hr IV Q24H [facility] Rx#:[id number] Output: Urine 275 / 2175 700 / 2175 Other: Weight 188.9 kg Weight Measurement Method Standing Scale
[2022-12-07] MEDS: TORSEMIDE 10 MG TAB PO SCH (11:49)
[2022-12-07] MEDS: cefTRIAXone SODIUM 2,000 MG in DEXTROSE 5% 50 ML IV SCH (13:43)
--- NOTE | 2022-12-07 14:15 | Hospitalist Progress Note ---
Date of Service December 07, 2022 Assessment & Plan (1) Acute heart failure with preserved ejection fraction (HFpEF): Plan: 62 y/o male with a history of atrial fibrillation on chronic AC, HTN, hypothyroidism, GERD, morbid obesity, s/p gastric bypass, osteomyelitis and discitis L2-L3 in 2021, CAD, and sleep apnea who presents to the ED today via EMS due to worsening shortness of breath with any exertion x 3 days. Admitted with acute exacerbation of CHF. Chest x-ray and EKG personally reviewed. -Echo reviewed, telemetry reviewed, -Continues to diurese well about net negative of 6L a day. Wt now seems to be at baseline. Continue daily weight, strict I and O's, fluid restriction of 1500 cc -Daily labs. Cr has remained stable at 1.1 with continued diuresis and metabolic alkalosis Discussed with cardiology; want to monitor him 1 more day as patient is switch ed over to torsemide. (2) Atrial fibrillation with RVR: Plan: Rate controlled but had significant pauses overnight on telemetry 6.3-second long on 12/02 around 3 AM. Discussed with cardiology-suspected due to AV zoila blocking agents in setting of sleep apnea. Agreeable to trial of CPAP- ordered from [facility] Discontinue Cardizem indefinitely. Metoprolol dose was initially increased to 75 mg twice daily; patient was bradycardic overnight. So, doses were changed back to 50 mg twice daily. No pause on telemetry since since 12/02. Outpatient sleep study evaluation. Will need nocturnal oxygen at discharge. Prescription given to disability case manager. (3) Hypothyroidism: Plan: Continue Synthroid, repeat TFTs outpatient with PCP for further adjustment (4) Hypertension: Plan: BP low normal, Cardizem stopped. Continue on metoprolol (5) Morbid obesity: Plan: BMI 64. Weight loss recommended. Follow-up with PCP (6) History of discitis: Plan: Patient has been on chronic suppressive ampicillin 1000 mg 3 times daily for past 6 months after 8 weeks of IV antibiotics for his discitis. He was evaluated by infectious disease today who recommended no further need for chronic therapy or chronic suppression and recommended stopping ampicillin. Also stated no further management or follow-up needed from ID Plan DVT prophylaxis-Xarelto Disposition-pending volume optimization, on oral torsemide. Cardiology recommends monitoring 1 more day on oral torsemide. Time spent evaluating patient, direct bedside care, chart review, placing orders, interpretation of diagnostic studies, discussion with consultants, patient, and family members, as well as other required patient management activities is 60 minutes. Please note the above document was generated using voice recognition software. It may contain grammatical, syntax or spelling errors. Any formal questions or concerns about the content, text or information contained within the body of this dictation should be directly addressed to the provider for clarification Admission and Anticipated Discharge Date Admission Date: November 30, 2022 Subjective Patient seen and examined at bedside. Is comfortably lying on the bed; not in any distress. Telemetry shows A-fib with controlled ventricular rate. Review of Systems Review of Systems: All systems reviewed & are unremarkable except as noted in Subjective Physical Exam Physical Exam: General: Morbidly obese male, lying comfortably in bed, not in distress, on room air HEENT: EOMI, KATHLEEN, MMM Chest: Diminished breath sounds at bases. CVS: Irregular, normal heart sounds, no murmur Abdomen: Soft, non tender, not distended, normal bowel sounds Neuro: Awake, alert, oriented, conversing well, non focal Extremities: No cyanosis, clubbing, trace pitting edema present Results & Data Results & Data Vital Signs (Past 12 Hours) Vital Signs Temp Pulse Pulse Resp BP Pulse Ox O2 Del Method 12/07/22 11:44 36.8 C 85 18 106/61 94 Room Air 12/07/22 08:00 96 H 12/07/22 07:49 37.3 C 86 18 113/72 91 Room Air 12/07/22 07:41 Room Air 12/07/22 03:57 36.4 C L 91 H 18 121/84 98 CPAP Laboratory Results Laboratory Results WBC 8.39 K/ul (4.8-10.8) 12/06/22 05:25 RBC 5.01 M/uL (4.70-6.10) 12/06/22 05:25 Hgb 14.3 g/dl (14.0-18.0) 12/06/22 05:25 Hct 44.8 % (42.0-52.0) 12/06/22 05:25 MCV 89.4 fL (80.0-100.0) 12/06/22 05:25 MCH 28.5 pg (25.0-34.0) 12/06/22 05:25 MCHC 31.9 g/dL (32.0-36.0) L 12/06/22 05:25 RDW Std Deviation 46.7 fL (36.4-46.3) H 12/06/22 05:25 RDW Coeff of Phu 14.3 % (11.5-14.5) 12/06/22 05:25 Plt Count 227 K/uL (130-400) 12/06/22 05:25 MPV 8.2 fL (9.4-12.4) L 12/06/22 05:25 Immature Gran % (Auto) 0.2 % 12/06/22 05:25 Neut % (Auto) 65.2 % 12/06/22 05:25 Lymph % (Auto) 22.6 % 12/06/22 05:25 [place] % (Auto) 7.4 % 12/06/22 05:25 Eos % (Auto) 3.6 % 12/06/22 05:25 Baso % (Auto) 1.0 % 12/06/22 05:25 Neut # (Auto) 5.47 K/uL (1.40-6.50) 12/06/22 05:25 Lymph # (Auto) 1.90 K/uL (1.2-3.4) 12/06/22 05:25 [place] # (Auto) 0.62 K/uL (0.11-0.59) H 12/06/22 05:25 Eos # (Auto) 0.30 K/uL (0-0.50) 12/06/22 05:25 Baso # (Auto) 0.08 K/uL (0-0.2) 12/06/22 05:25 Immature Gran # (Auto) 0.02 K/uL (0.01-0.20) 12/06/22 05:25 PT 15.1 Seconds (9.0-12.0) H 11/30/22 09:38 INR 1.4 (0.9-1.1) H 11/30/22 09:38 APTT 39.9 Seconds (21.0-31.0) H 12/02/22 02:37 PTT Ratio 1.4 12/02/22 02:37 Sodium 138 mmol/L (136-145) 12/07/22 07:56 Potassium 4.1 mmol/L (3.5-5.1) 12/07/22 07:56 Chloride 98 mmol/L (98-107) 12/07/22 07:56 Carbon Dioxide 35 mmol/L (21-32) H 12/07/22 07:56 Anion Gap 5 (3-11) 12/07/22 07:56 BUN 19 mg/dl (6-23) 12/07/22 07:56 Creatinine 1.08 mg/dl (0.6-1.4) 12/07/22 07:56 Est Cr Clr Drug Dosing 118.3 ml/min 12/07/22 07:56 Est GFR ( Amer) 84.8 ml/min 12/07/22 07:56 Est GFR (Non-Af Amer) 73.2 ml/min 12/07/22 07:56 BUN/Creatinine Ratio 17.6 (10-20) 12/07/22 07:56 Glucose 89 mg/dl (70-99(Fasting)) 12/07/22 07:56 Lactate 1.1 mmol/L (0.4-2.0) 12/02/22 02:37 Calcium 8.8 mg/dl (8.6-10.3) 12/07/22 07:56 Magnesium 1.9 mg/dl (1.7-2.4) 12/07/22 07:56 Troponin I High Sens 10.3 pg/ml (0-20) 11/30/22 14:57 B-Natriuretic Peptide 411 pg/ml (0-100) H 11/30/22 09:38 TSH 7.466 uIu/ml (0.300-4.500) H 11/30/22 09:38 Urine Color Red 12/05/22 Unknown Urine Appearance Cloudy (Clear) A 12/05/22 Unknown Urine pH >= 9.0 (4.5-7.5) H 12/05/22 Unknown Ur Specific [place] 1.015 (1.000-1.030) 12/05/22 Unknown Urine Protein 3+ (Negative) H 12/05/22 Unknown Urine Glucose (UA) Negative (Negative) 12/05/22 Unknown Urine Ketones Negative (Negative) 12/05/22 Unknown Urine Blood 2+ (Negative) H 12/05/22 Unknown Urine Nitrite Negative (Negative) 12/05/22 Unknown Urine Bilirubin Negative (Negative) 12/05/22 Unknown Urine Urobilinogen Positive (Negative) H 12/05/22 Unknown Ur Leukocyte Esterase 1+ (Negative) H 12/05/22 Unknown Urine RBC >30 /hpf (0-4) H 12/05/22 Unknown Urine WBC >30 /hpf (0-5) H 12/05/22 Unknown Ur Epithelial Cells >30 /lpf (0-5) H 12/05/22 Unknown Urine Bacteria 3+ (Negative) H 12/05/22 Unknown SARS-CoV-2, RNA, NAAT NEGATIVE (NEGATIVE) 11/30/22 Unknown Impressions Chest X-Ray 11/30/22 09:35 XR chest 1V portable HISTORY: 62 years-old Male shob acute chest pain shortness of breath COMPARISON: 09/19/2021 TECHNIQUE: AP view the chest FINDINGS: Cardiac silhouette is enlarged. No pneumothorax, pleural effusion, airspace consolidation or pulmonary edema. Bones appear grossly intact. IMPRESSION: Cardiomegaly without acute process. ACT 112: Negative or not required by law. The above report was generated using voice recognition software. It may contain grammatical, syntax or spelling errors. Electronically signed by: Mack Andrade M.D. 11/30/2022 11:02 AM Abdomen/Pelvis CT 12/05/22 06:14 CT abd pelvis wo con CLINICAL HISTORY: hematuria TECHNIQUE: Helical axial images of the abdomen and pelvis were obtained. Automated dose lowering techniques and/or adjustment according to patient size were utilized for this exam. This exam was performed without intravenous contrast. CT DOSE: 1847.52 mGy.cm COMPARISON: Comparison is made to CT abdomen pelvis 09/10/2021 FINDINGS: Exam is limited by patient body habitus. Lower chest: Small left pleural effusion is seen with mild atelectasis. Liver: Unremarkable. No focal lesions are seen. Gallbladder and biliary tree: Patient is status post cholecystectomy. No intra- or extrahepatic biliary ductal dilation. Pancreas: Unremarkable, no focal lesions. Spleen: Unremarkable. Adrenals: Unremarkable. Kidneys and ureters: Perinephric stranding is noted bilaterally. Tiny nonobstructive stones are seen. Bladder: Holden catheter is seen. Reproductive organs: Unremarkable. Bowel: Postsurgical changes of gastric bypass surgery noted. There is a small hiatal hernia. The appendix is normal. Lymph nodes Retroperitoneal: Unremarkable. Pelvic: Unremarkable. Mesenteric: Unremarkable. Peritoneum: Normal. Vessels: Unremarkable. Abdominal wall: Mild soft tissue edema is seen. Bones: Degenerative changes in the visualized spine. IMPRESSION: No acute abnormalities and in particular no evidence of urothelial lesion. ACT 112: Negative or not required by law. Electronically signed by: David Mcclain M.D. 12/05/2022 9:33 AM
[2022-12-07] MEDS: RIVAROXABAN 20 MG TAB PO SCH (20:56)
[2022-12-08] MEDS: LEVOTHYROXINE SODIUM 75 MCG TABLET PO SCH (06:01)
[2022-12-08 06:45] LABS: Est GFR (African American) 81.2 ml/min; Potassium 4.4 mmol/L (3.5-5.1)
--- NOTE | 2022-12-08 07:39 | Cardiology Progress Note ---
Date of Service December 08, 2022 Assessment & Plan (1) Acute heart failure with preserved ejection fraction (HFpEF): (2) Chronic atrial fibrillation: (3) Bradycardia: (4) PHYLLIS (obstructive sleep apnea): Plan IMPRESSION: Patient admitted for acute HFpEF/RHF after non compliance with oral diuretics over the last few weeks. Evidence on admission of volume overload on exam with worsening SOB, orthopnea, edema. Significant [place] morbid obesity contributing. Patient continues to demonstrate improvement with progressive weight loss, lower extremity edema improved. PLAN: Okay for discharge from a cardiology standpoint. Continue oral Torsemide 20 mg daily and Spironolactone 25 mg daily along with all other cardiac medications at discharge. Repeat BMP in 1 week post discharge. CHF Education. Remain off Diltiazem indefinitely due to acute CHF exacerbation. Continue Metoprolol succinate 50 mg twice daily- consider increase as an outpatient. Transient bradycardia and pauses during sleep hours likely exacerbated by uncontrolled PHYLLIS- continue CPAP/O2 therapy during sleep hours. Patient on gabapentin and prednisone indications for long-term use should be addressed. Case discussed with Dr. Blanchard. Outpatient cardiology follow up already scheduled. Admission and Anticipated Discharge Date Admission Date: November 30, 2022 Supervising Physician Co-Signing Physician Notes Patient was seen and personally examined. Patient notes clinical improvement and demonstrates persistent diuresis Doing well with oral regimen CHF instructions given Plan as outlined above Subjective 62-year-old male initially presented to [facility] for acute on chronic HFpEF in the setting of noncompliance with oral diuretics times a few weeks. Patient has responded well to IV diuretics with a decline of about 40 pounds this admission. Diuresed with IV furosemide 40 mg daily and spironolactone 25 mg daily (started 12/05). Renal function has remained stable. Patient transitioned off of IV furosemide to oral torsemide 20 mg daily (12/07). Diltiazem was discontinued and metoprolol succinate was increased to 75 mg daily. Patient had an episode of transient bradycardia while sleeping-metoprolol was again reduced to 50 mg twice daily on 12/06. He has significant sleep apnea and is noncompliant on CPAP at home but has been wearing and tolerating generally well while inpatient. TELE: AFIB 60-80ss, no significant bradycardia/pauses over night. I&O: -39.7L WEIGHT: 206.4 kg>>186 kg Upon entrance into the room patient resting comfortably in bed. HOB minimally elevated. No orthopnea. Denies dyspnea. Feels back to baseline, "if not better". Continues to have difficulty tolerating CPAP- wearing o2 at night. Lower extremity edema improved. No abdominal bloating. Denies chest pain or palpitations. No lightheadedness. Eager for discharge. Review of Systems Review of Systems: All systems reviewed & are unremarkable except as noted in HPI & below Physical Exam Constitutional: WD/WN, vitals as above well nourished and + morbidly obese; no acute distress ENMT: external ear and nose normal, oropharynx normal Neck: + thick neck Respiratory: normal respiratory effort; no respiratory distress and no labored breathing Auscultation: + diminished lung sounds (Bases bilateral); no crackles, no rales, no rhonchi and no wheezes Cardiovascular: Rate/Rhythm: + irregularly irregular Heart Sounds: normal S1 and normal S2; no murmur Vessels: radial pulses present; no JVD and no carotid bruit Extremities: + edema (Improving, trace BL) Gastrointestinal (Abdomen): normal bowel sounds, soft, nontender, no hepatosplenomegaly Inspection/Auscultation: normal bowel sounds; abdomen not distended Percussion/Palpation: abdomen soft; abdomen nontender, no guarding and abdomen not rigid Neurologic: PERRL, EOMI, accommodation nl, no face palsy, no dysarthria CN's II-XI intact bilaterally and moves all extremities; no focal motor deficits Psychiatric: A+Ox3, euthymic affect Results & Data Vital Signs (Past 12 Hours) Vital Signs Temp Pulse Pulse Resp BP Pulse Ox O2 Del Method 12/08/22 03:15 36.6 C 89 16 116/81 97 Nasal Cannula 12/08/22 00:09 36.5 C 90 18 113/74 94 Room Air 12/07/22 22:00 101 H 12/07/22 19:45 Room Air 12/07/22 20:03 36.6 C 92 H 18 102/71 92 Room Air O2 Flow Rate 12/08/22 03:15 2 12/08/22 00:09 12/07/22 22:00 12/07/22 19:45 12/07/22 20:03 Laboratory Results Comprehensive Metabolic Panel 12/08/22 Range/Units 05:26 Sodium 140 (136-145) mmol/L Potassium 4.4 (3.5-5.1) mmol/L Chloride 98 (98-107) mmol/L Carbon Dioxide 36 H (21-32) mmol/L BUN 19 (6-23) mg/dl Creatinine 1.12 (0.6-1.4) mg/dl Glucose 89 (70-99(Fasting)) mg/dl Calcium 9.0 (8.6-10.3) mg/dl Intake and Output 12/07/22 12/08/22 12/08/22 22:59 06:59 14:59 Intake Total 400 / 1410 Output Total 1180 / 3756 476 / 3756 Balance -780 / -2346 -476 / -2346 Intake: Oral 400 / 1340 Output: Urine 1180 / 3755 470 / 3755 # Bowel Movements Other: # Unmeasured Voids 1 Weight 186 kg Weight Measurement Method Standing Scale
[2022-12-08] MEDS: predniSONE 10 MG TABLET PO SCH (08:38)
[2022-12-08] MEDS: FLUoxetine HCL 10 MG CAP PO SCH (08:38)
[2022-12-08] MEDS: POTASSIUM CHLORIDE CRTAB 20 MEQ TABCR PO SCH (08:38)
[2022-12-08] MEDS: MAGNESIUM OXIDE 400 MG TAB PO SCH (08:39)
[2022-12-08] MEDS: GABAPENTIN 300 MG CAP PO SCH (08:39)
[2022-12-08] MEDS: TORSEMIDE 10 MG TAB PO SCH (08:39)
[2022-12-08] MEDS: METOPROLOL SUCC 50MG EXT REL TAB PO SCH (08:39)
[2022-12-08] MEDS: PANTOprazole 40 MG TAB PO SCH (08:39)
[2022-12-08] MEDS: SPIRONOLACTONE 25 MG TAB PO SCH (08:39)
--- NOTE | 2022-12-08 15:34 | Discharge Summary ---
Date of Service December 08, 2022 Admission HPI Per Admitting Provider This is a 62 y/o male with a history of atrial fibrillation on chronic AC, HTN, hypothyroidism, GERD, morbid obesity, s/p gastric bypass, osteomyelitis and discitis L2-L3 in 2021, CAD, and sleep apnea who presents to the ED today via EMS due to worsening shortness of breath with any exertion x 3 days. On Wednesday, he noted the abrupt onset of fatigue, ABURTO, wheezing with walking. On Wednesday, he felt okay as long as sitting but continued with ABURTO with any activity. Took off yesterday from work to rest but no improvement in symptoms. Today, he reports that breathing is fine if he is lying still but even standing causes shortness of breath, wheezing, palpitations and racing heart. He noted transient substernal chest discomfort this morning with exertion, relieved by rest. Currently, he is chest pain free. He does have a hx of afib with a rate of 90-100 at baseline. Today, he noted a rate in the 130s at home and EMS noted a rate of 140. He is on Xarelto chronically for AC - denies prior hx of CVA or clot. He has noted increased frequency is episodes of palpitations over the last week. Has some dizziness with standing but this resolves quickly. No dizziness at rest. He denies significant cough, ST, congestion, runny nose, MENG, fevers, chills, sweats. +fatigue but ongoing issue. Increased edema in LE since last week. He uses furosemide 40 mg daily PRN for fluid - he has taken four doses over the last week with the last dose being two days ago (Wednesday). He also reports a rash in the bilateral groin area with associated pain but no itching. He has been using clotrimazole without significant relief. Denies dysuria, hematuria, change in urinary frequency. Last ECHO in 01/02 - EF 55-60%, mild concentric LVH, mild MR, mild TR. He reports previously following with [facility] cardiology but has not been seen recently - reviewed outpatient records and last visit appears to have been in 2018. Pt denies recent adjustment of cardiac meds. He is taking ampicillin chronically for hx of discitis and prednisone daily due to arthritis. Does not appear to have followed up with ID after discharge last summer for the discitis. Admission Exam Per Admitting Provider Constitutional: + morbidly obese; no acute distress Eyes: + anicteric sclerae Neck: trachea midline Respiratory: no respiratory distress and no labored breathing Auscultation: + diminished lung sounds Cardiovascular: Rate/Rhythm: + tachycardic and + irregularly irregular Vessels: radial pulses present Extremities: + edema (bilateral LE) Gastrointestinal (Abdomen): Inspection/Auscultation: normal bowel sounds and + significant pannus Percussion/Palpation: abdomen soft; abdomen nontender Musculoskeletal: Head/Neck/Chest: normocephalic, head atraumatic and neck supple Skin: +erythematous rash with erosions in bilateral groin area Neurologic: moves all extremities; not confused Psychiatric: A+Ox3, euthymic affect Principal Diagnosis Acute heart failure with preserved ejection fraction (HFpEF): Discharge Exam General: Morbidly obese male, lying comfortably in bed, not in distress, on room air HEENT: EOMI, KATHLEEN, MMM Chest: Diminished breath sounds at bases. CVS: Irregular, normal heart sounds, no murmur Abdomen: Soft, non tender, not distended, normal bowel sounds Neuro: Awake, alert, oriented, conversing well, non focal Extremities: No cyanosis, clubbing, trace pitting edema present Discharge Data Allergies Allergy/AdvReac Type Severity Reaction Status Date / Time No Known Allergies Allergy ` Verified 09/28/21 18:15 Consultations 11/30/22 11:12 ED Decision to Admit Stat 11/30/22 16:04 Consult Cardiology Routine 11/30/22 18:38 Consult Infectious Diseases Routine Ordered Studies 12/05/22 06:14 CT abd pelvis wo con Urgent Hospital Course (1) Acute heart failure with preserved ejection fraction (HFpEF): 62 y/o male with a history of atrial fibrillation on chronic AC, HTN, hypothyroidism, GERD, morbid obesity, s/p gastric bypass, osteomyelitis and discitis L2-L3 in 2021, CAD, and sleep apnea who presents to the ED today via EMS due to worsening shortness of breath with any exertion x 3 days. Admitted with acute exacerbation of CHF. Chest x-ray and EKG personally reviewed. -Echo reviewed, telemetry reviewed, During the hospitalization, patient was diuresed with IV Lasix. Patient responded well with IV Lasix with negative balance of 39 L at discharge. His weight also decreased significantly during the hospitalization. Patient was saturating well on room air at discharge. He was placed on spironolactone and torsemide as per cardiology recommendation. (2) Atrial fibrillation with RVR: Rate controlled but had significant pauses overnight on telemetry 6.3-second long on 12/02 around 3 AM. Discussed with cardiology-suspected due to AV zoila blocking agents in setting of sleep apnea. Agreeable to trial of CPAP- ordered from tonight Discontinue Cardizem indefinitely. Metoprolol dose was initially increased to 75 mg twice daily; patient was br adycardic overnight. So, doses were changed back to 50 mg twice daily. No pause on telemetry since since 12/02. Outpatient sleep study evaluation. At discharge, patient's Cardizem was stopped due to pauses seen on the telemetry. Metoprolol dose was decreased to 50 mg twice daily. He was started on nocturnal oxygen. He was asked to follow-up with primary care doctor to set up outpatient sleep study. (3) History of discitis: Patient has been on chronic suppressive ampicillin 1000 mg 3 times daily for past 6 months after 8 weeks of IV antibiotics for his discitis. He was evaluated by infectious disease during the hospitalization who recommended no further need for chronic therapy or chronic suppression and recommended stopping ampicillin. Also stated no further management or follow-up needed from ID Please note the above document was generated using voice recognition software. It may contain grammatical, syntax or spelling errors. Any formal questions or concerns about the content, text or information contained within the body of this dictation should be directly addressed to the provider for clarification Total Time Total Time Spent Total Time Spent (In Minutes): 40 Total Time Includes: Examination of the Patient, Discharge Planning, Medication Reconciliation, Communication With Other Providers and Other Discharge Plan Discharge Items Patient Disposition: Home - Self-Care Reason For Visit: FLUID OVERLOAD, AFIB W/ INTERMITTENT RVR Discharge Diagnosis: Acute heart failure with preserved ejection fraction (HFpEF): Activity: Resume your previous activity Non-emergency contact: Primary Care Provider Call non-emergency contact if: you have any medication questions and your symptoms worsen Follow-up/Referrals: Sandi Roman [Primary Care Provider] - Diet: Regular Addtl Attending Provider Instructions: You were admitted to the hospital with heart failure. You are evaluated by cardiology during the hospitalization. Following changes are made to your medication regimen: 1) stop taking Cardizem and Lasix. 2) the dose of metoprolol was decreased to 50 mg twice daily. A new prescription is sent to your pharmacy 3) start taking torsemide 20 mg once daily in the morning. It is a diuretic and it will help to continue decongestion. Also, you are prescribed spironolactone 25 mg once daily. 4) take ciprofloxacin 500 mg twice daily for 5 days for UTI Please follow-up with your primary care doctor as soon as possible and obtain sleep study test. Please measure your weight daily in the morning at the same time. If you notice that you have gained 3 to 5 pounds of weight and you notice leg swelling increasing; take extra dose of torsemide 20 mg in the afternoon till your weight decreases back down. Also contact your primary care doctor. Pending Studies at Discharge: No Stand-Alone Forms: My [facility] F[employer], Smoking Cessation Medications and DC Order Prescriptions: New metoprolol succinate 50 mg Tablet Extended Release 24 Hr 50 mg PO BID Qty: 60 0RF spironolactone 25 mg Tablet 25 mg PO QAM Qty: 30 0RF ciprofloxacin HCl 500 mg tablet 500 mg PO BID Qty: 14 0RF torsemide 20 mg tablet 20 mg PO DAILY Qty: 30 0RF Continued ferrous sulfate [iron] 325 mg (65 mg iron) Tablet 325 mg PO QPM pantoprazole 40 mg Tablet,Delayed Release (Dr/Ec) 40 mg PO DAILY diclofenac sodium 1 % Gel 2 g TOPICAL QID PRN (Reason: Pain) Xarelto 20 mg Tablet 20 mg PO HS magnesium oxide 400 mg magnesium Tablet 400 mg PO BID meloxicam 15 mg tablet 15 mg PO QAM trazodone 50 mg Tablet 150 mg PO QDD PRN (Reason: Sleep) Qty: 15 0RF Rx Instructions: take at suppertime as needed ergocalciferol (vitamin D2) [Vitamin D2] 50,000 unit Capsule 50,000 unit PO WK Qty: 4 0RF Rx Instructions: TAKE ON WEDNESDAY fluoxetine 10 mg capsule 10 mg PO DAILY prednisone 10 mg Tablet 10 mg PO DAILY tramadol 50 mg tablet 50 mg PO BID PRN (Reason: Pain) levothyroxine 75 mcg Tablet 75 mcg PO DAILY gabapentin 300 mg capsule 300 mg PO BID Discontinued furosemide [Lasix] 40 mg tablet 40 mg PO QAM PRN (Reason: Edema) metoprolol succinate 100 mg Tablet Extended Release 24 Hr 100 mg PO BID diltiazem HCl 240 mg Tablet Extended Release 24 Hr 240 mg PO QAM potassium chloride [Klor-Con] 20 mEq packet 20 meq PO HS Qty: 30 0RF Rx Instructions: take at bedtime ampicillin 500 mg capsule 1,000 mg PO TID Discharge Orders: Discharge Order (Routine); Ordered 12/08/22 Ordered By: Jovi Cohen Admission Data Admit Date/Time: 11/30/22 15:31 Attending Provider: Jovi Cohen Admit Provider: Ryanne Murray Primary Care Provider: Sandi Roman Other Providers: Ryanne Murray ; Jori Segura ; Bridger Graham ; Mansi Aguayo ; Wilman Paz I. ; Torsten Malloy II ; Estefanía Burkett ; Derrell Domingo ; Hilario Lozano ; Sourav Lopez ; Osmin Almonte Other Interventions: Discharge Summary Assessment (RN) Last Done: 12/08/22 13:18
== END 2022-12-08 13:53 | disposition home or self-care (01) | DRG 291 ==
LOC: ED 09:20 → 4W 09:20 → SUATTDRO 15:31

== ENCOUNTER 2023-02-11 14:15 | Inpatient (IN) ==
[2023-02-11 15:05] LABS: Basophils # (auto) 0.03 K/uL (0.00-0.20); Basophils % (auto) 0.4 %; Eosinophils # (auto) 0.01 K/uL (0.00-0.50); Eosinophils % (auto) 0.1 %; Hemoglobin 14.1 g/dl (14.0-18.0); Immature Granulocytes # (auto) 0.04 K/uL (0.01-0.20); Immature Granulocytes % (auto) 0.5 %; Lymphocytes # (auto) 0.62 K/uL (1.20-3.40); Lymphocytes % (auto) 7.6 %; Mean Corpuscular Hemoglobin 29.2 pg (25.0-34.0); Mean Corpuscular Hgb Conc 32.8 g/dL (32.0-36.0); Mean Platelet Volume 9.7 fL (9.4-12.4); Monocytes # (auto) 0.74 K/uL (0.11-0.59); Neutrophils # (auto) 6.75 K/uL (1.40-6.50); Neutrophils % (auto) 82.4 %; Platelet Count 117 K/uL (130-400); RDW Coefficient of Variation 17.3 % (11.5-14.5); RDW Standard Deviation 56.3 fL (36.4-46.3); Red Blood Count 4.83 M/uL (4.70-6.10); White Blood Count 8.19 K/ul (4.8-10.8)
[2023-02-11 15:19] LABS: Alanine Aminotransferase 43 U/L (7-52); Albumin Globulin Ratio 1.7 (0.9-2); Albumin Level 4.1 gm/dl (3.4-5.0); Alkaline Phosphatase 124 U/L (34-104); Anion Gap 11 (3-11); Aspartate Aminotransferase 45 U/L (13-39); BUN Creatinine Ratio 22.3 (10-20); Bilirubin,Total 1.7 mg/dl (0.2-1.0); Blood Urea Nitrogen 27 mg/dl (6-23); Carbon Dioxide 26 mmol/L (21-32); Chloride 99 mmol/L (98-107); Est GFR (African American) 73.9 ml/min; Est GFR (Non-African American) 63.8 ml/min; Globulin 2.4 gm/dl (2.5-4.0); Glucose 103 mg/dl (70-99(Fasting)); Potassium 3.6 mmol/L (3.5-5.1); Sodium 136 mmol/L (136-145); Total Protein 6.5 gm/dl (6.0-8.3)
[2023-02-11 15:25] LABS: Troponin I High Sensitivity 5.9 pg/ml (0-20)
[2023-02-11 15:31] LABS: INR 1.2 (0.9-1.1); Partial Thromboplastin Ratio 1.4; Prothrombin Time 13.5 Seconds (9.0-12.0)
--- NOTE | 2023-02-11 15:37 | XRay Report ---
XR chest 1V not portable CLINICAL HISTORY: Chest pain, nonspecific TECHNIQUE: Single frontal radiograph of the chest was obtained. Comparison: Comparison is made to chest radiograph 11/30/2022 FINDINGS: Exam is limited by underpenetration. Cardiomegaly is noted. The lungs are clear. No evidence of pleur al effusion or pneumothorax. IMPRESSION: No acute chest disease. ACT 112: Negative or not required by law. Electronically signed by: David Mcclain M.D. 02/11/2023 3:36 PM
[2023-02-11] MEDS ORDERED: MoRPHine SULFATE 4 MG/ML 1 ML CARP\\VIAL IV STA (16:48)
--- NOTE | 2023-02-11 17:01 | Emergency Department Note ---
Impression & Plan Atrial fibrillation with rapid ventricular response, Back pain ED Provider Note NAME: OMA OWENS AGE: 62 SEX: M : 1960 ARRIVES VIA: Walk-In INFORMANT: Patient ED PROVIDER(S): Niraj Recio DO CHIEF COMPLAINT: Back pain HPI: Patient is a 62-year-old male who presents to the ER for back pain in the cervical and thoracic spine. He notes that it started yesterday and has been getting worse. Its worse with movement. Improves with rest. He has not taken anything with this. He does have an extensive history of a month stay [place] [facility] [place] which was treated and he went through rehab. Abscess was in his lower lumbar spine. He denies any fevers or weakness or numbness in the arms or legs. No dysuria, urgency, or frequency. No other exacerbating remitting factors. Does have a history of A-fib and has been taking his NOAC. Has been having trouble getting around. PAST MEDICAL HISTORY:See Below PAST SURGICAL HISTORY:See Below FAMILY HISTORY:See Below SOCIAL HISTORY:See Below HOME MEDICATIONS:See Below ALLERGIES:See Below VITALS:See Below PHYSICAL EXAMINATION: GENERAL: Sitting up in bed, alert, well appearing, well nourished, no distress, non-toxic EYE EXAM: normal conjunctiva. PERRL and EOM's grossly intact. OROPHARYNX: mucous membranes are moist NECK: supple, no nuchal rigidity, no adenopathy, paraspinal tenderness in the mid to lower cervical region LUNGS: Clear to auscultation. Normal chest wall mechanics HEART: no murmurs, S1 normal and S2 normal ABDOMEN: abdomen soft, non-tender, normo-active bowel sounds, no masses, no rebound or guarding. BACK: Back is symmetrical on inspection and there is no deformity, no midline tenderness, paraspinal tenderness in the cervical region down to the mid thoracic region SKIN: no rashes and no bruising UPPER EXTREMITIES: upper extremities are grossly normal. LOWER EXTREMITIES: No pitting edema. NEURO EXAM: Normal sensorium, cranial nerves II-XII grossly intact, normal speech, no gross weakness of arms, no gross weakness of legs. MEDICAL DECISION MAKING: Patient is a 62-year-old male who presents ER with above-stated complaint. IV was established blood work was obtained. Labs show no significant leukocytosis or anemia. INR at 1.2. BMP was unremarkable. T. bili slightly over 1.7. LFTs were unremarkable. CRP was slightly elevated at 20. UA was clean. Attempted to obtain MRI and due to how busy the ER was took several hours for him to get over to MRI. Once over an MRI he did not want to lay flat. He was given narcotics and benzodiazepines. He still could not lay still and consequently was brought back to the room. He was discussed with Dr. Kearns who for admission. He was given multiple doses of Lopressor for A-fib with RVR. He is taking his NOAC. He was updated bedside. Initially held on antibiotics as I cannot be certain and was favoring this was muscle skeletal however did give him a dose prior to admission. Patient was also given IV narcotics for pain meds. MRI of cervical spine was sent to stat [facility] per tech however she notes these are unreadable. This will need to be repeated Triage Nursing notes reviewed. Limited review of prior medical records performed Vital Signs: reviewed and remarkable for tachy Differential diagnosis: Cardiac ischemia, aortic dissection, pulmonary embolism, pneumothorax, pneumonia, pericarditis, myocarditis, esophageal rupture, GERD, cholecystitis, pancreatitis, musculoskeletal, as well as other pathologies. ER treatment provided: See below Diagnostics interpreted by me include EKG and cardiac monitoring as listed below: -Cardiac Monitoring: An order was placed for continuous cardiac monitoring. The monitor shows a rate of 120 with Afib RVR rhythm. -ECG: A-fib RVR rate of 129 Right bundle branch block QTc 503 Poor baseline T wave inversions in the septal leads -Laboratory studies:Interpreted by me as stated above in MDM and shown below. Imaging studies: Xrays: As interpreted by me: Portable AP upright 1 view of the chest shows no focal infiltrate CTs show: MRI of the cervical spine was obtained but per senior qc technician its poor studies and they would not be able to view this. Consultation(s): As described in MDM Procedures:none Critical Care: None Past Med/Surg History Medical History Chest pain Chronic anticoagulation Coronary artery disease "moderate disease per cardiac cath [facility] 2013; 50% LAD, 40% RCA" Depression Diabetes mellitus type 2, controlled Borderline blood sugar previously but no longer an issue Gram-positive bacteremia History of colonic polyps History of urinary calculi "right ureteral stone 2015" Hx of sciatica Hypertension Hypothyroidism Insomnia Iron deficiency anemia "heme + stool 2016, subsequent EGD and colonoscopy neg except for polyp" Lumbar disc herniation Lumbar radiculopathy Morbid obesity Paroxysmal atrial fibrillation Ventricular septal defect Vitamin B12 deficiency Surgical History Status post cardiac catheterization "[place] 2014, 50% LAD, 40% RCA" Status post cystoscopy "with right ureteroscopy, laser lithotripsy, basket stone extraction" Status post gastric bypass for obesity Family History Other No pertinent family history Social History Smoking Status: Never smoker Second Hand Exposure: No; Do You Dip or Chew Tobacco: No; Hx Alcohol Use: Yes Alcohol type: hard liquor Hx Substance Use: No Preferred Language: [place] Communication Ability: Effective Hearing Ability: Normal Product Management Specialist Required: No Beliefs That Will Affect Care: None marital status: Single Current Living Situation: Parent Feels Safe at Home: Yes Assistive Devices: Cane Allergies Allergies Allergy/AdvReac Type Severity Reaction Status Date / Time No Known Allergies Allergy ` Verified 02/11/23 20:29 Home Meds Home Medications Medication Instructions Recorded Confirmed diclofenac sodium 1 % topical gel 2 g topical QID PRN Pain 11/24/18 02/11/23 magnesium oxide 400 mg PO BID 11/24/18 02/11/23 rivaroxaban 20 mg tablet (Xarelto) 20 mg PO QPM 11/24/18 02/11/23 ferrous sulfate 325 mg (65 mg 325 mg PO QPM 11/28/18 02/11/23 iron) tablet (iron) meloxicam 15 mg tablet 15 mg PO DAILY PRN arthritis 09/28/21 02/11/23 fluoxetine 10 mg capsule 10 mg PO DAILY 11/30/22 02/11/23 gabapentin 300 mg capsule 300 mg PO UD 11/30/22 02/11/23 tramadol 50 mg tablet 50 mg PO BID PRN Pain 11/30/22 02/11/23 cyclobenzaprine 10 mg tablet 10 mg PO HS PRN Muscle Spasm 02/11/23 02/11/23 tolnaftate 1 % topical powder 1 applic topical BID 02/11/23 02/11/23 torsemide 20 mg tablet 20 mg PO QAM 02/11/23 02/11/23 Previous Rx's Medication Instructions Recorded ergocalciferol (vitamin D2) 1,250 50,000 unit PO WK #4 caps 12/29/21 mcg (50,000 unit) capsule (Vitamin D2) trazodone 50 mg tablet 150 mg PO QDD PRN Sleep #15 tabs 12/29/21 metoprolol succinate 50 mg 50 mg PO BID #60 tabs 12/07/22 tablet,extended release 24 hr spironolactone 25 mg tablet 25 mg PO QAM #30 tabs 12/07/22 Results & Data (ED) Vital Signs Vital Signs - 24 hr 02/11/23 14:25 02/11/23 16:46 02/11/23 16:46 Temperature 36.9 C Temperature Source Temporal Artery Scan Pulse Rate 117 H 123 H Pulse Rate [Apical] 123 H Respiratory Rate 18 22 22 Respiratory Effort / Characteristics Non-Labored Spontaneous Respiratory Depth Normal Blood Pressure 136/78 Blood Pressure [Left Arm] 127/89 Blood Pressure Mean 97 Blood Pressure Mean [Left Arm] 101 Blood Pressure Position Sitting Blood Pressure Position [Left Arm] Sitting Pulse Oximetry 95 99 99 Oxygen Delivery Method Room Air Room Air Room Air Sepsis Recent Fever Within 48 Hours No Sepsis New/Unexplained Change in Mental Status N/A Sepsis Action Taken by Nursing No Action Required 02/11/23 16:46 02/11/23 17:30 02/11/23 18:10 Temperature Temperature Source Pulse Rate 130 H 135 H 126 H Pulse Rate [Apical] Respiratory Rate 17 24 Respiratory Effort / Characteristics Respiratory Depth Blood Pressure 140/90 Blood Pressure [Left Arm] Blood Pressure Mean 106 Blood Pressure Mean [Left Arm] Blood Pressure Position Blood Pressure Position [Left Arm] Pulse Oximetry 95 95 Oxygen Delivery Method Room Air Room Air Sepsis Recent Fever Within 48 Hours Sepsis New/Unexplained Change in Mental Status Sepsis Action Taken by Nursing 02/11/23 18:30 02/11/23 18:50 02/11/23 19:36 Temperature Temperature Source Pulse Rate 124 H 124 H 136 H Pulse Rate [Apical] Respiratory Rate 17 22 Respiratory Effort / Characteristics Respiratory Depth Blood Pressure 96/69 L 94/71 L 134/104 H Blood Pressure [Left Arm] Blood Pressure Mean 78 80 Blood Pressure Mean [Left Arm] Blood Pressure Position Blood Pressure Position [Left Arm] Pulse Oximetry 95 96 Oxygen Delivery Method Room Air Room Air Sepsis Recent Fever Within 48 Hours Sepsis New/Unexplained Change in Mental Status Sepsis Action Taken by Nursing 02/11/23 21:18 02/11/23 21:26 02/11/23 21:26 Temperature Temperature Source Pulse Rate 139 H 131 H 131 H Pulse Rate [Apical] Respiratory Rate Respiratory Effort / Characteristics Respiratory Depth Blood Pressure 128/104 H 128/104 H Blood Pressure [Left Arm] Blood Pressure Mean Blood Pressure Mean [Left Arm] Blood Pressure Position Blood Pressure Position [Left Arm] Pulse Oximetry Oxygen Delivery Method Sepsis Recent Fever Within 48 Hours Sepsis New/Unexplained Change in Mental Status Sepsis Action Taken by Nursing Laboratory Data 02/11/23 14:35 02/11/23 14:35 Lab Results 02/11/23 02/11/23 02/11/23 Range/Units 14:35 14:35 14:35 WBC 8.19 (4.8-10.8) K/ul RBC 4.83 (4.70-6.10) M/uL Hgb 14.1 (14.0-18.0) g/dl Hct 43.0 (42.0-52.0) % MCV 89.0 (80.0-100.0) fL MCH 29.2 (25.0-34.0) pg MCHC 32.8 (32.0-36.0) g/dL RDW Std Deviation 56.3 H (36.4-46.3) fL RDW Coeff of Phu 17.3 H (11.5-14.5) % Plt Count 117 L (130-400) K/uL MPV 9.7 (9.4-12.4) fL Immature Gran % (Auto) 0.5 % Neut % (Auto) 82.4 % Lymph % (Auto) 7.6 % Pine % (Auto) 9.0 % Eos % (Auto) 0.1 % Baso % (Auto) 0.4 % Neut # (Auto) 6.75 H (1.40-6.50) K/uL Lymph # (Auto) 0.62 L (1.20-3.40) K/uL Pine # (Auto) 0.74 H (0.11-0.59) K/uL Eos # (Auto) 0.01 (0.00-0.50) K/uL Baso # (Auto) 0.03 (0.00-0.20) K/uL Immature Gran # (Auto) 0.04 (0.01-0.20) K/uL PT 13.5 H (9.0-12.0) Seconds INR 1.2 H (0.9-1.1) APTT 39.0 H (21.0-31.0) Seconds PTT Ratio 1.4 Sodium 136 (136-145) mmol/L Potassium 3.6 (3.5-5.1) mmol/L Chloride 99 (98-107) mmol/L Carbon Dioxide 26 (21-32) mmol/L Anion Gap 11 (3-11) BUN 27 H (6-23) mg/dl Creatinine 1.21 (0.6-1.4) mg/dl Est Cr Clr Drug Dosing Not Reportable Est GFR ( Amer) 73.9 ml/min Est GFR (Non-Af Amer) 63.8 ml/min BUN/Creatinine Ratio 22.3 H (10-20) Glucose 103 H (70-99(Fasting)) mg/dl Calcium 9.0 (8.6-10.3) mg/dl Total Bilirubin 1.7 H (0.2-1.0) mg/dl AST 45 H (13-39) U/L ALT 43 (7-52) U/L Alkaline Phosphatase 124 H (34-104) U/L Troponin I High Sens 5.9 (0-20) pg/ml C-Reactive Protein 20.10 H (0-0.5) mg/dl Total Protein 6.5 (6.0-8.3) gm/dl Albumin 4.1 (3.4-5.0) gm/dl Globulin 2.4 L (2.5-4.0) gm/dl Albumin/Globulin Ratio 1.7 (0.9-2) Urine Color Urine Appearance (Clear) Urine pH (4.5-7.5) Ur Specific [place] (1.000-1.030) Urine Protein (Negative) Urine Glucose (UA) (Negative) Urine Ketones (Negative) Urine Blood (Negative) Urine Nitrite (Negative) Urine Bilirubin (Negative) Urine Urobilinogen (Negative) Ur Leukocyte Esterase (Negative) Urine WBC (Auto) (0-5) /hpf Urine RBC (Auto) (0-4) /hpf U Hyaline Cast (Auto) (0-5) /lpf U Epithel Cells (Auto) (0-5) /lpf Urine Bacteria (Auto) (Negative) 02/11/23 Range/Units 16:59 WBC (4.8-10.8) K/ul RBC (4.70-6.10) M/uL Hgb (14.0-18.0) g/dl Hct (42.0-52.0) % MCV (80.0-100.0) fL MCH (25.0-34.0) pg MCHC (32.0-36.0) g/dL RDW Std Deviation (36.4-46.3) fL RDW Coeff of Phu (11.5-14.5) % Plt Count (130-400) K/uL MPV (9.4-12.4) fL Immature Gran % (Auto) % Neut % (Auto) % Lymph % (Auto) % Pine % (Auto) % Eos % (Auto) % Baso % (Auto) % Neut # (Auto) (1.40-6.50) K/uL Lymph # (Auto) (1.20-3.40) K/uL Pine # (Auto) (0.11-0.59) K/uL Eos # (Auto) (0.00-0.50) K/uL Baso # (Auto) (0.00-0.20) K/uL Immature Gran # (Auto) (0.01-0.20) K/uL PT (9.0-12.0) Seconds INR (0.9-1.1) APTT (21.0-31.0) Seconds PTT Ratio Sodium (136-145) mmol/L Potassium (3.5-5.1) mmol/L Chloride (98-107) mmol/L Carbon Dioxide (21-32) mmol/L Anion Gap (3-11) BUN (6-23) mg/dl Creatinine (0.6-1.4) mg/dl Est Cr Clr Drug Dosing Est GFR ( Amer) ml/min Est GFR (Non-Af Amer) ml/min BUN/Creatinine Ratio (10-20) Glucose (70-99(Fasting)) mg/dl Calcium (8.6-10.3) mg/dl Total Bilirubin (0.2-1.0) mg/dl AST (13-39) U/L ALT (7-52) U/L Alkaline Phosphatase (34-104) U/L Troponin I High Sens (0-20) pg/ml C-Reactive Protein (0-0.5) mg/dl Total Protein (6.0-8.3) gm/dl Albumin (3.4-5.0) gm/dl Globulin (2.5-4.0) gm/dl Albumin/Globulin Ratio (0.9-2) Urine Color Yellow Urine Appearance Clear (Clear) Urine pH 5.5 (4.5-7.5) Ur Specific [place] 1.015 (1.000-1.030) Urine Protein 1+ H (Negative) Urine Glucose (UA) Negative (Negative) Urine Ketones Trace H (Negative) Urine Blood Negative (Negative) Urine Nitrite Negative (Negative) Urine Bilirubin Negative (Negative) Urine Urobilinogen Negative (Negative) Ur Leukocyte Esterase Negative (Negative) Urine WBC (Auto) 1-5 (0-5) /hpf Urine RBC (Auto) 0-4 (0-4) /hpf U Hyaline Cast (Auto) 1-5 (0-5) /lpf U Epithel Cells (Auto) 10-20 H (0-5) /lpf Urine Bacteria (Auto) Negative (Negative) Administered Medications Discontinued Medications Sodium Chloride (Nss 1000ml) 1,000 mls @ 999 mls/hr IV .Q1H1M ONE Stop: 02/11/23 18:12 Last Infusion: 02/11/23 19:00 Dose: 0 mls/hr Documented By: Admin: 02/11/23 17:31 Dose: 999 mls/hr Documented By: QGV Sodium Chloride (Nss 1000ml) 1,000 mls @ 999 mls/hr IV .Q1H1M ONE Stop: 02/11/23 19:58 Last Admin: 02/11/23 19:35 Dose: 999 mls/hr Documented By: ANGELA Lorazepam (Lorazepam 2 Mg/1 Ml Vial) 0.5 mg IV NOW STA Stop: 02/11/23 20:27 Last Admin: 02/11/23 20:31 Dose: 0.5 mg Documented By: ANGELA Metoprolol Tartrate (Metoprolol Tartrate 1 Mg/Ml Vial) 2.5 mg IV NOW STA Stop: 02/11/23 18:59 Last Admin: 02/11/23 19:40 Dose: Not Given Documented By: ANGELA Metoprolol Tartrate (Metoprolol Tartrate 1 Mg/Ml Vial) 5 mg IV NOW STA Stop: 02/11/23 19:18 Last Admin: 02/11/23 19:36 Dose: 5 mg Documented By: ANGELA Metoprolol Tartrate (Metoprolol Tartrate 1 Mg/Ml Vial) 5 mg IV NOW STA Stop: 02/11/23 21:20 Last Admin: 02/11/23 21:26 Dose: 5 mg Documented By: ANGELA Morphine Sulfate (Morphine Sulfate 4 Mg/Ml 1 Ml Carp\\Vial) 4 mg IV NOW STA Stop: 02/11/23 16:49 Last Admin: 02/11/23 17:09 Dose: 4 mg Documented By: [facility] Morphine Sulfate (Morphine Sulfate 10 Mg/Ml Carp/Vial) 6 mg IV NOW STA Stop: 02/11/23 21:20 Last Admin: 02/11/23 21:30 Dose: 6 mg Documented By: ANGELA Imaging Data Radiologist's Impression: Chest X-Ray 02/11/23 15:23 XR chest 1V not portable CLINICAL HISTORY: Chest pain, nonspecific TECHNIQUE: Single frontal radiograph of the chest was obtained. Comparison: Comparison is made to chest radiograph 11/30/2022 FINDINGS: Exam is limited by underpenetration. Cardiomegaly is noted. The lungs are clear. No evidence of pleural effusion or pneumothorax. IMPRESSION: No acute chest disease. ACT 112: Negative or not required by law. Electronically signed by: David Mcclain M.D. 02/11/2023 3:36 PM Discharge Plan Visit Data Chief Complaint: Pain (Generalized) Stated Complaint: SEVERE PAIN IN NECK TO ELBOW INTO ARMS ED Provider: Niraj Recio Discharge Problem: Atrial fibrillation with rapid ventricular response, Back pain Forms Stand Alone Forms: My [facility] Prescriptions Prescriptions: No Action ferrous sulfate [iron] 325 mg (65 mg iron) Tablet 325 mg PO QPM diclofenac sodium 1 % Gel 2 g TOPICAL QID PRN (Reason: Pain) Rx Instructions: knees Xarelto 20 mg Tablet 20 mg PO QPM magnesium oxide 400 mg magnesium Tablet 400 mg PO BID meloxicam 15 mg tablet 15 mg PO DAILY PRN (Reason: arthritis) trazodone 50 mg Tablet 150 mg PO QDD PRN (Reason: Sleep) Qty: 15 0RF Rx Instructions: take at suppertime as needed ergocalciferol (vitamin D2) [Vitamin D2] 50,000 unit Capsule 50,000 unit PO WK Qty: 4 0RF Rx Instructions: TAKE ON WEDNESDAY torsemide 20 mg tablet 20 mg PO QAM tolnaftate 1 % powder 1 applic TOPICAL BID cyclobenzaprine 10 mg tablet 10 mg PO HS PRN (Reason: Muscle Spasm) fluoxetine 10 mg capsule 10 mg PO DAILY tramadol 50 mg tablet 50 mg PO BID PRN (Reason: Pain) gabapentin 300 mg capsule 600 mg PO [facility] metoprolol succinate 50 mg Tablet Extended Release 24 Hr 50 mg PO BID Qty: 60 0RF spironolactone 25 mg Tablet 25 mg PO QAM Qty: 30 0RF Referrals Referrals: Sandi Roman [Primary Care Provider] -
[2023-02-11] MEDS ORDERED: SODIUM CHLORIDE 0.9% 1,000 ML IV ONE ×2 (17:12→18:58)
[2023-02-11 17:23] LABS: Appearance Urine Clear (Clear); Bacteria Urine Automated Negative (Negative); Bilirubin Urine Negative (Negative); Blood Urine Negative (Negative); Color Urine Yellow; Glucose Urine UA Negative (Negative); Ketones Urine Trace (Negative); Leukocyte Esterase Urine Negative (Negative); Nitrite Urine Negative (Negative); Protein Urine 1+ (Negative); RBC Urine Automated 0-4 /hpf (0-4); Specific Gravity Urine 1.015 (1.000-1.030); Urobilinogen Urine Negative (Negative); pH Urine 5.5 (4.5-7.5)
[2023-02-11] MEDS ORDERED: METOPROLOL TARTRATE 1 MG/ML VIAL IV STA ×4 (18:58→21:44)
[2023-02-11] MEDS ORDERED: LORazepam 2 MG/1 ML VIAL IV STA ×2 (20:26)
[2023-02-11] MEDS ORDERED: MoRPHine SULFATE 10 MG/ML CARP/VIAL IV STA (21:19)
[2023-02-11] MEDS ORDERED: CEFEPIME 2,000 MG/20 ML VIAL IV STA (22:01)
--- NOTE | 2023-02-11 22:23 | Magnetic Resonance Report ---
Exam(s): MRI C SPINE EXAM: MR Cervical Spine Without Intravenous Contrast CLINICAL HISTORY: Reason for exam: ? infection with back pain and a recent previous b. TECHNIQUE: Magnetic resonance images of the cervical spine without intravenous contrast in multiple planes. COMPARISON: No relevant prior studies available. FINDINGS: Limitations: Limited study. Only sagittal noncontrast images were able to be acquired which are motion degraded. No axial images were able to be acquired. Vertebrae: Straightening of the cervical spine with loss of normal lordosis. Alignment is maintained with preservation of vertebral body heights. No abnormal bone marrow signal. No acute fracture. Spinal cord: Unremarkable. No gross abnormal spinal cord signal. No gross spinal canal stenosis. Soft tissues: Soft tissue edema within the posterior soft tissues extending from the C3 through C5 level centered at the C3 spinous process. IMPRESSION: 1. Soft tissue edema within the posterior soft tissues extending from the C3 through C5 level centered at the C3 spinous process. 2. Limited study. Only sagittal noncontrast images were able to be acquired which are motion degraded. No axial images were able to be acquired. Electronically signed by: Cj Crawford M.D. 02/11/23 22:22 PM
[2023-02-11] MEDS ORDERED: METOPROLOL SUCC 50MG EXT REL TAB PO STA (23:31)
[2023-02-11] MEDS ORDERED: RIVAROXABAN 20 MG TAB PO STA (23:31)
--- NOTE | 2023-02-11 23:50 | History & Physical Report ---
Date of Service February 11, 2023 Assessment & Plan (1) Back pain: Plan: 62-year-old male with past medical significant for hypothyroidism, atrial fibrillation, hypertension, morbid obesity, s/p gastric bypass, CHF, obstructive sleep apnea could not tolerate CPAP currently uses oxygen on most nights as per patient, GERD, history of CAD, history of osteomyelitis and discitis at L2-L3 in 2021 and epidural abscess requiring 1 month stay [place] [facility] [place]hab comes with neck pain radiating to shoulders and back since last Wednesday. Neck pain and back pain Started last Wednesday history of discitis and epidural abscess No weakness or incontinence or loss of sensation In the ER MRI scan was attempted but patient was difficult to lay down flat Was able to get a cervical spine MRI but was not a good study and seems recommended to repeat There are some soft tissue edema extending from C3-C5 spinal process Patient states he will try repeat MRI scan in the morning Because of history will empirically start on IV Zosyn and Dapto N.p.o. at midnight for now Consult spine suirgery in a.m. Pain control Rapid A-fib History of A-fib Metoprolol succinate and Xarelto Last admission diltiazem was stopped because of pause and bradycardia Received IV Lopressor in the ER We will continue home medications and place on IV Lopressor as needed Consult cardiology in a.m. Monitor in telemetry floor Heart failure with preserved ejection fraction Reduced right ventricular function Continue home diuretics torsemide and spironolactone We will monitor for volume overload Lower EXTR edema Patient states chronic Right leg is more swollen slightly erythematous which patient states is slightly more than usual We will get a Doppler Antibiotics as above for possible cellulitis Obstructive sleep apnea Could not tolerate CPAP as per patient Uses oxygen 2 to 3 L on most nights as per patient History of CAD On beta-stef and Xarelto Morbid obesity needs counseling DVT prophylaxis Xarelto Disposition telemetry floor Full code (2) Atrial fibrillation with rapid ventricular response: History of Present Illness Chief Complaint: Neck pain and back pain and rapid A-fib Primary Care Provider: Sandi Roman 62-year-old male with past medical significant for hypothyroidism, atrial fibrillation, hypertension, morbid obesity, s/p gastric bypass, CHF, obstructive sleep apnea could not tolerate CPAP currently uses oxygen on most nights as per patient, GERD, history of CAD, history of osteomyelitis and discitis at L2-L3 in 2021 and epidural abscess requiring 1 month stay in [facility] [place] had rehab comes with neck pain radiating to shoulders and back since last Wednesday. Sometimes pain radiating to the right arm. Strength is okay. No bowel or bladder incontinence. No loss of sensation. Today had some pain while ambulating. Denies any fevers. Had some chest pain yesterday but currently no chest pain. Denies any shortness of breath. No headache. No blurred visions. No earache or runny nose or sore throat. No cough. Appetite is okay. No dysphagia. No nausea or abdominal pain. Normal bowel and bladder movements .Patient was in rapid A-fib in the ER requiring IV Lopressor. Patient could not lay flat for the MRI scan and final able to do MRI cervical spine but which was not a good study. Patient says he will try MRI scan again in the morning. Past medical history as mentioned above Past surgical history IR aspiration of the abscess, s/p cardiac cath at [facility] 2013 with 50% LAD and 40% RCA as per records, s/p cystoscopy with right uteroscopy, laser lithotripsy and basket stone extraction. S/p gastric bypass for obesity. Social history no smoking. Alcohol occasional. No drug use. Allergies Allergy/AdvReac Type Severity Reaction Status Date / Time No Known Allergies Allergy ` Verified 02/11/23 20:29 Home Medications Medication Instructions Recorded Confirmed Type diclofenac sodium 1 % topical gel 2 g topical QID PRN Pain 11/24/18 02/11/23 History magnesium oxide 400 mg PO BID 11/24/18 02/11/23 History rivaroxaban 20 mg tablet (Xarelto) 20 mg PO QPM 11/24/18 02/11/23 History ferrous sulfate 325 mg (65 mg 325 mg PO QPM 11/28/18 02/11/23 History iron) tablet (iron) meloxicam 15 mg tablet 15 mg PO DAILY PRN arthritis 09/28/21 02/11/23 History ergocalciferol (vitamin D2) 1,250 50,000 unit PO WK #4 caps 12/29/21 02/11/23 Rx mcg (50,000 unit) capsule (Vitamin D2) trazodone 50 mg tablet 150 mg PO QDD PRN Sleep #15 tabs 12/29/21 02/11/23 Rx fluoxetine 10 mg capsule 10 mg PO DAILY 11/30/22 02/11/23 History gabapentin 300 mg capsule 600 mg PO AMHS 11/30/22 02/11/23 History tramadol 50 mg tablet 50 mg PO BID PRN Pain 11/30/22 02/11/23 History metoprolol succinate 50 mg 50 mg PO BID #60 tabs 12/07/22 02/11/23 Rx tablet,extended release 24 hr spironolactone 25 mg tablet 25 mg PO QAM #30 tabs 12/07/22 02/11/23 Rx cyclobenzaprine 10 mg tablet 10 mg PO HS PRN Muscle Spasm 02/11/23 02/11/23 Hi story tolnaftate 1 % topical powder 1 applic topical BID 02/11/23 02/11/23 History torsemide 20 mg tablet 20 mg PO QAM 02/11/23 02/11/23 History Past Med/Surg History Medical History Chest pain Chronic anticoagulation Coronary artery disease "moderate disease per cardiac cath [facility] 2013; 50% LAD, 40% RCA" Depression Diabetes mellitus type 2, controlled Borderline blood sugar previously but no longer an issue Gram-positive bacteremia History of colonic polyps History of urinary calculi "right ureteral stone 2015" Hx of sciatica Hypertension Hypothyroidism Insomnia Iron deficiency anemia "heme + stool 2015, subsequent EGD and colonoscopy neg except for polyp" Lumbar disc herniation Lumbar radiculopathy Morbid obesity Paroxysmal atrial fibrillation Ventricular septal defect Vitamin B12 deficiency Surgical History Status post cardiac catheterization "2013, 50% LAD, 40% RCA" Status post cystoscopy "with right ureteroscopy, laser lithotripsy, basket stone extraction" Status post gastric bypass for obesity Family History Other No pertinent family history Social History Smoking Status: Never smoker Second Hand Exposure: No; Do You Dip or Chew Tobacco: No; Tobacco Cessation Education Requested by Patient: No Hx Alcohol Use: No Hx Substance Use: No Preferred Language: Azerbaijani Communication Ability: Effective Hearing Ability: Normal Power Plant Inspector Required: No Beliefs That Will Affect Care: None marital status: Single Current Living Situation: Parent Current Living Situation Comment: with parents in one story home with ramp to entrance Other Information That Helps Us Care for You: No Feels Safe at Home: Yes Safety Concerns: Feels Safe At This Time Assistive Devices: Cane, Contacts and Glasses Review of Systems Review of Systems: All systems reviewed & are unremarkable except as noted in HPI & below Physical Exam Physical Exam: General- Not in distress Head- atraumatic Eyes- PERRL,c ENT- oropharynx clear Neck- supple, no JVD,. Lungs- clear to auscultation, no wheezing or crackles. Heart- irregular rate and rhythm; Tachycardia no murmur, no gallop. Abdomen- normal bowel sounds, soft, nontender, no distension. Extremities- bilateral lower extremity edema present rt leg> left leg. Rt leg erythematous. Neuro- alert, oriented x 3; PERRL, EOMI; no facial palsy; no dysarthria; motor 5/5 bilaterally; sensations intact. Results & Data Results & Data Vital Signs (Past 12 Hours) Vital Signs Temp Pulse Pulse Resp BP BP Pulse Ox 02/11/23 22:43 133 H 124/92 02/11/23 22:38 131 H 119/90 02/11/23 21:26 131 H 128/104 H 02/11/23 21:26 131 H 128/104 H 02/11/23 21:18 139 H 02/11/23 19:36 136 H 134/104 H 02/11/23 18:50 124 H 22 94/71 L 96 02/11/23 18:30 124 H 17 96/69 L 95 02/11/23 18:10 126 H 24 95 02/11/23 17:30 135 H 17 140/90 95 02/11/23 16:46 130 H 02/11/23 16:46 123 H 22 99 02/11/23 16:46 123 H 22 127/89 99 02/11/23 14:25 36.9 C 117 H 18 136/78 95 O2 Del Method 02/11/23 22:43 02/11/23 22:38 02/11/23 21:26 02/11/23 21:26 02/11/23 21:18 02/11/23 19:36 02/11/23 18:50 Room Air 02/11/23 18:30 Room Air 02/11/23 18:10 Room Air 02/11/23 17:30 Room Air 02/11/23 16:46 02/11/23 16:46 Room Air 02/11/23 16:46 Room Air 02/11/23 14:25 Room Air Diagnostic Findings Laboratory Results WBC 8.19 K/ul (4.8-10.8) 02/11/23 14:35 RBC 4.83 M/uL (4.70-6.10) 02/11/23 14:35 Hgb 14.1 g/dl (14.0-18.0) 02/11/23 14:35 Hct 43.0 % (42.0-52.0) 02/11/23 14:35 MCV 89.0 fL (80.0-100.0) 02/11/23 14:35 MCH 29.2 pg (25.0-34.0) 02/11/23 14:35 MCHC 32.8 g/dL (32.0-36.0) 02/11/23 14:35 RDW Std Deviation 56.3 fL (36.4-46.3) H 02/11/23 14:35 RDW Coeff of Phu 17.3 % (11.5-14.5) H 02/11/23 14:35 Plt Count 117 K/uL (130-400) L 02/11/23 14:35 MPV 9.7 fL (9.4-12.4) 02/11/23 14:35 Immature Gran % (Auto) 0.5 % 02/11/23 14:35 Neut % (Auto) 82.4 % 02/11/23 14:35 Lymph % (Auto) 7.6 % 02/11/23 14:35 Ell[place] % (Auto) 9.0 % 02/11/23 14:35 Eos % (Auto) 0.1 % 02/11/23 14:35 Baso % (Auto) 0.4 % 02/11/23 14:35 Neut # (Auto) 6.75 K/uL (1.40-6.50) H 02/11/23 14:35 Lymph # (Auto) 0.62 K/uL (1.20-3.40) L 02/11/23 14:35 Ellsworth # (Auto) 0.74 K/uL (0.11-0.59) H 02/11/23 14:35 Eos # (Auto) 0.01 K/uL (0.00-0.50) 02/11/23 14:35 Baso # (Auto) 0.03 K/uL (0.00-0.20) 02/11/23 14:35 Immature Gran # (Auto) 0.04 K/uL (0.01-0.20) 02/11/23 14:35 PT 13.5 Seconds (9.0-12.0) H 02/11/23 14:35 INR 1.2 (0.9-1.1) H 02/11/23 14:35 APTT 39.0 Seconds (21.0-31.0) H 02/11/23 14:35 PTT Ratio 1.4 02/11/23 14:35 Sodium 136 mmol/L (136-145) 02/11/23 14:35 Potassium 3.6 mmol/L (3.5-5.1) 02/11/23 14:35 Chloride 99 mmol/L (98-107) 02/11/23 14:35 Carbon Dioxide 26 mmol/L (21-32) 02/11/23 14:35 Anion Gap 11 (3-11) 02/11/23 14:35 BUN 27 mg/dl (6-23) H 02/11/23 14:35 Creatinine 1.21 mg/dl (0.6-1.4) 02/11/23 14:35 Est Cr Clr Drug Dosing Not Reportable 02/11/23 14:35 Est GFR ( Amer) 73.9 ml/min 02/11/23 14:35 Est GFR (Non-Af Amer) 63.8 ml/min 02/11/23 14:35 BUN/Creatinine Ratio 22.3 (10-20) H 02/11/23 14:35 Glucose 103 mg/dl (70-99(Fasting)) H 02/11/23 14:35 Calcium 9.0 mg/dl (8.6-10.3) 02/11/23 14:35 Total Bilirubin 1.7 mg/dl (0.2-1.0) H 02/11/23 14:35 AST 45 U/L (13-39) H 02/11/23 14:35 ALT 43 U/L (7-52) 02/11/23 14:35 Alkaline Phosphatase 124 U/L (34-104) H 02/11/23 14:35 Troponin I High Sens 5.9 pg/ml (0-20) 02/11/23 14:35 C-Reactive Protein 20.10 mg/dl (0-0.5) H 02/11/23 14:35 Total Protein 6.5 gm/dl (6.0-8.3) 02/11/23 14:35 Albumin 4.1 gm/dl (3.4-5.0) 02/11/23 14:35 Globulin 2.4 gm/dl (2.5-4.0) L 02/11/23 14:35 Albumin/Globulin Ratio 1.7 (0.9-2) 02/11/23 14:35 Urine Color Yellow 02/11/23 16:59 Urine Appearance Clear (Clear) 02/11/23 16:59 Urine pH 5.5 (4.5-7.5) 02/11/23 16:59 Ur Specific Ponce 1.015 (1.000-1.030) 02/11/23 16:59 Urine Protein 1+ (Negative) H 02/11/23 16:59 Urine Glucose (UA) Negative (Negative) 02/11/23 16:59 Urine Ketones Trace (Negative) H 02/11/23 16:59 Urine Blood Negative (Negative) 02/11/23 16:59 Urine Nitrite Negative (Negative) 02/11/23 16:59 Urine Bilirubin Negative (Negative) 02/11/23 16:59 Urine Urobilinogen Negative (Negative) 02/11/23 16:59 Ur Leukocyte Esterase Negative (Negative) 02/11/23 16:59 Urine WBC (Auto) 1-5 /hpf (0-5) 02/11/23 16:59 Urine RBC (Auto) 0-4 /hpf (0-4) 02/11/23 16:59 U Hyaline Cast (Auto) 1-5 /lpf (0-5) 02/11/23 16:59 U Epithel Cells (Auto) 10-20 /lpf (0-5) H 02/11/23 16:59 Urine Bacteria (Auto) Negative (Negative) 02/11/23 16:59 Impressions Chest X-Ray 02/11/23 15:23 XR chest 1V not portable CLINICAL HISTORY: Chest pain, nonspecific TECHNIQUE: Single frontal radiograph of the chest was obtained. Comparison: Comparison is made to chest radiograph 11/30/2022 FINDINGS: Exam is limited by underpenetration. Cardiomegaly is noted. The lungs are clear. No evidence of pleural effusion or pneumothorax. IMPRESSION: No acute chest disease. ACT 112: Negative or not required by law. Electronically signed by: David Mcclain M.D. 02/11/2023 3:36 PM Cervical Spine MRI 02/11/23 16:48 Exam(s): MRI C SPINE EXAM: MR Cervical Spine Without Intravenous Contrast CLINICAL HISTORY: Reason for exam: ? infection with back pain and a recent previous b. TECHNIQUE: Magnetic resonance images of the cervical spine without intravenous contrast in multiple planes. COMPARISON: No relevant prior studies available. FINDINGS: Limitations: Limited study. Only sagittal noncontrast images were able to be acquired which are motion degraded. No axial images were able to be acquired. Vertebrae: Straightening of the cervical spine with loss of normal lordosis. Alignment is maintained with preservation of vertebral body heights. No abnormal bone marrow signal. No acute fracture. Spinal cord: Unremarkable. No gross abnormal spinal cord signal. No gross spinal canal stenosis. Soft tissues: Soft tissue edema within the posterior soft tissues extending from the C3 through C5 level centered at the C3 spinous process. IMPRESSION: 1. Soft tissue edema within the posterior soft tissues extending from the C3 through C5 level centered at the C3 spinous process. 2. Limited study. Only sagittal noncontrast images were able to be acquired which are motion degraded. No axial images were able to be acquired. Electronically signed by: Cj Crawford M.D. 02/11/23 22:22 PM ECG Additional Comments: ECG A-fib with rapid ventricle response rate of 129. Right bundle branch block inverted T waves inferior leads Code Status & VTE Plan VTE Prophylaxis Plan VTE Prophylaxis will be ordered: Yes
[2023-02-12] MEDS ORDERED: NITROGLYCERIN SL 0.4 MG/TAB TAB SL PRN (00:27)
[2023-02-12] MEDS ORDERED: METOPROLOL TARTRATE 1 MG/ML VIAL IV PRN (00:27)
[2023-02-12] MEDS ORDERED: POLYETHYLENE (MIRALAX) 17 GM PACK PO PRN (00:27)
[2023-02-12] MEDS: HYDROmorphone INJ 0.5 MG/0.5 ML SYR IV PRN ×5 (01:28→19:14)
[2023-02-12] MEDS: GABAPENTIN 300 MG CAP PO SCH ×3 (02:28→20:44)
[2023-02-12] MEDS: DAPTOmycin 750 MG in SYRINGE 0 ML IV SCH (03:41)
--- NOTE | 2023-02-12 03:50 | Ultrasound Report ---
Exam(s): US VENOUS BILATERAL LOWER EXTREMITIES EXAM: US Duplex Bilateral Lower Extremities Veins CLINICAL HISTORY: Reason for exam: b/l edema and right leg erythema . DVT?. TECHNIQUE: Real-time duplex ultrasound scan of the bilateral lower extremity veins integrating B-mode two-dimensional vascular structure, Doppler spectral analysis, color flow Doppler imaging and compression. COMPARISON: No relevant prior studies available. FINDINGS: Right deep veins: Unremarkable. No DVT in the right common femoral, femoral, proximal deep femoral or popliteal veins. The veins demonstrate normal color flow, are normally compressible, with normal phasic flow and/or augmentation response. Left deep veins: Unremarkable. No DVT in the left common femoral, femoral, proximal deep femoral or popliteal veins. The veins demonstrate normal color flow, are normally compressible, with normal phasic flow and/or augmentation response. Soft tissues: No acute findings. No popliteal cyst. IMPRESSION: No evidence of bilateral lower extremity deep venous thrombosis. Electronically signed by: Cj Crawford M.D. 02/12/23 03:49 AM
[2023-02-12] MEDS ORDERED: PIPERACILLIN/TAZOBACTAM 4.5 GM in DEXTROSE 5% 100 ML IV SCH (04:00)
[2023-02-12 05:19] LABS: BUN Creatinine Ratio 21.9 (10-20); Calcium 8.4 mg/dl (8.6-10.3); Creatinine Clr Calc Pharmacy 140.3 ml/min; Est GFR (African American) 97.8 ml/min; Est GFR (Non-African American) 84.4 ml/min; Magnesium 1.8 mg/dl (1.7-2.4); Potassium 3.5 mmol/L (3.5-5.1)
[2023-02-12 05:23] LABS: Basophils # (auto) 0.03 K/uL (0.00-0.20); Basophils % (auto) 0.3 %; Hemoglobin 13.1 g/dl (14.0-18.0); Lymphocytes # (auto) 0.94 K/uL (1.20-3.40); Lymphocytes % (auto) 9.5 %; Mean Corpuscular Hemoglobin 29.6 pg (25.0-34.0); Mean Corpuscular Hgb Conc 33.6 g/dL (32.0-36.0); Mean Corpuscular Volume 88.2 fL (80.0-100.0); Monocytes # (auto) 1.19 K/uL (0.11-0.59); Neutrophils # (auto) 7.53 K/uL (1.40-6.50); Neutrophils % (auto) 76.2 %; Platelet Count 110 K/uL (130-400); RDW Coefficient of Variation 17.4 % (11.5-14.5); RDW Standard Deviation 56.2 fL (36.4-46.3); Red Blood Count 4.42 M/uL (4.70-6.10); White Blood Count 9.89 K/ul (4.8-10.8)
[2023-02-12 05:26] LABS: Troponin I High Sensitivity 5.8 pg/ml (0-20)
[2023-02-12 06:21] LABS: A calco-baum cmplx NotReported Not Detected (NotDetected); Bact fragilis Not Reported Not Detected (NotDetected); C auris Not Reported Not Detected (NotDetected); Calbicans Not Reported Not Detected (NotDetected); Candida glabrata Not Reported Not Detected (NotDetected); Candida krusei Not Reported Not Detected (NotDetected); Cneoformans/gatti Not Reported Not Detected (NotDetected); Cparapsilosis Not Reported Not Detected (NotDetected); Ctropicalis Not Reported Not Detected (NotDetected); E cloacae compx Not Reported Not Detected (NotDetected); Efaecalis Not Reported Not Detected (NotDetected); Efaecium Not Reported Not Detected (NotDetected); Enterobacterales Not Reported Not Detected (NotDetected); Escherichia coli Not Reported Not Detected (NotDetected); H influenzae Not Reported Not Detected (NotDetected); K aerogenes Not Reported Not Detected (NotDetected); Koxytoca Not Reported Not Detected (NotDetected); Kpneumoniae grp Not Reported Not Detected (NotDetected); Lmonocyt Not Reported Not Detected (NotDetected); N meningitidis Not Reported Not Detected (NotDetected); P aeruginosa Not Reported Not Detected (NotDetected); Proteus spp Not Reported Not Detected (NotDetected); Salmonella spp Not Reported Not Detected (NotDetected); Smarcescens Not Reported Not Detected (NotDetected); Staph lugdunensis Not Reported Not Detected (NotDetected); Staph spp. Not Reported Not Detected (NotDetected); Staphaureus Not Reported Not Detected (NotDetected); Staphepi Not Reported Not Detected (NotDetected); Stenmaltophilia Not Reported Not Detected (NotDetected); Strep agal(GrpB) Not Reported DETECTED (NotDetected); Strep pneum Not Reported Not Detected (NotDetected); Strep pyog (GrpA) Not Reported Not Detected (NotDetected); Strep spp Not Reported DETECTED (NotDetected); Streptococcus spp DETECTED (NotDetected)
[2023-02-12 06:52] LABS: Streptococcus agalactiae(GrpB) DETECTED (NotDetected)
[2023-02-12] MEDS ORDERED: POTASSIUM CHLORIDE CRTAB 20 MEQ TABCR PO STA (08:25)
--- NOTE | 2023-02-12 08:28 | Cardiology Consultation ---
Date of Consultation February 12, 2023 Assessment & Plan (1) Permanent atrial fibrillation with rapid ventricular response: (2) Chronic heart failure with preserved ejection fraction (HFpEF): (3) Right heart failure: (4) Back pain: Plan IMPRESSION: Medically complex 62 year old male with chronic HFpEF/RHF and permanent atrial fibrillation. Presented due to back/shoulder pain which started on Wednesday after cleaning at work. Noticed elevated HR over the last month accompanied by palpitations and chest tightness at home. PLAN: Permanent atrial fibrillation-- ventricular rates uncontrolled, ? med compliance at home. Pain likely contributing to patient's elevated rates. Increase metoprolol succinate to 75 mg BID Continue Xarelto 20 mg daily for stroke prevention Replace potassium to a goal of 4.0 and mag of 2.0. HFpEF/RHF-- Patient not examining significantly volume overloaded. Continue home dose Torsemide 20 mg daily Known dx of PHYLLIS- intolerant to CPAP, encourage use of supplemental o2 with sleep. CHF EDU Strict I&O, daily standing weights, 2g sodium diet. Caution use of NSAIDs/Gabapentin/muscle relaxers- risk of CHF exacerbation Case discussed with Dr. Blanchard- will follow. Supervising Physician Co-Signing Physician Notes Patient was seen and examined, chart, medications, telemetry reviewed. Full assessment and plan as outlined well above. Morbidly obese patient with persistent atrial fibrillation, diastolic heart failure with hypoventilatory syndrome Admitted after presenting to ER with neck pain and back pain worse with movement Heart rates notably elevated on presentation with patient and persistent atrial fibrillation. Received multiple medications in ER for sedation prior to imaging as well as rate control Plan as above increase metoprolol succinate for further rate control. Prior use of diltiazem resulted in AV block Continue medications as noted Follow I's and O's closely. May benefit from 1 or 2 doses of IV furosemide during hospitalization received oral torsemide, spironolactone this morning History of Present Illness Reason for Consultation: Permanent atrial fib with rapid ventricular response. 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 Started on Antibiotics this admission. Surgery consulted. Heart rates in atrial fibrillation were elevated on presentation and have been persistently in the 120-130s. Has been noticing increased palpitations and chest tightness. Dyspnea at baseline. Denies any missed doses of his medications recently. Monitors HR at home noting rates in the 110-140s over the last month. EKG without acute ST segment changes: AFIB with RBBB, 129 bpm HS trop negative x2, K 3.5 (40 meq KCL given this am) Echo 11/2022: LVEF 60-65%, mild concentric LVH, RV moderately dilated with mildly reduced systolic function, mod MR/TR Tele: perm AFIB 120-140s I&O: +1 L Weight: 197.9 kg Past medical history: Chronic atrial fibrillation Chronic Diastolic/Right sided CHF HTN Morbid obesity s/p gastric bypass PHYLLIS, intolerant to CPAP- on o2 at night GERD Nonobstructive CAD-- s/p cardiac cath at [facility] 2013 with 50% LAD and 40% RCA Hx of osteomyelitis and discitis at L2-L3 in 2021 and epidural abscess [place] [facility] [place] medication noncompliance Allergies Allergy/AdvReac Type Severity Reaction Status Date / Time No Known Allergies Allergy ` Verified 02/11/23 20:29 Home Medications Medication Instructions Recorded Confirmed Type diclofenac sodium 1 % topical gel 2 g topical QID PRN Pain 11/24/18 02/11/23 History magnesium oxide 400 mg PO BID 11/24/18 02/11/23 History rivaroxaban 20 mg tablet (Xarelto) 20 mg PO QPM 11/24/18 02/11/23 History ferrous sulfate 325 mg (65 mg 325 mg PO QPM 11/28/18 02/11/23 History iron) tablet (iron) meloxicam 15 mg tablet 15 mg PO DAILY PRN arthritis 09/28/21 02/11/23 History ergocalciferol (vitamin D2) 1,250 50,000 unit PO WK #4 caps 12/29/21 02/11/23 Rx mcg (50,000 unit) capsule (Vitamin D2) trazodone 50 mg tablet 150 mg PO QDD PRN Sleep #15 tabs 12/29/21 02/11/23 Rx fluoxetine 10 mg capsule 10 mg PO DAILY 11/30/22 02/11/23 History gabapentin 300 mg capsule 600 mg PO AMHS 11/30/22 02/11/23 History tramadol 50 mg tablet 50 mg PO BID PRN Pain 11/30/22 02/11/23 History metoprolol succinate 50 mg 50 mg PO BID #60 tabs 12/07/22 02/11/23 Rx tablet,extended release 24 hr spironolactone 25 mg tablet 25 mg PO QAM #30 tabs 12/07/22 02/11/23 Rx cyclobenzaprine 10 mg tablet 10 mg PO HS PRN Muscle Spasm 02/11/23 02/11/23 History tolnaftate 1 % topical powder 1 applic topical BID 02/11/23 02/11/23 History torsemide 20 mg tablet 20 mg PO QAM 02/11/23 02/11/23 History Patient History Medical History Chest pain Chronic anticoagulation Coronary artery disease "moderate disease per cardiac cath [facility] 2013; 50% LAD, 40% RCA" Depression Diabetes mellitus type 2, controlled Borderline blood sugar previously but no longer an issue Gram-positive bacteremia History of colonic polyps History of urinary calculi "right ureteral stone 2015" Hx of sciatica Hypertension Hypothyroidism Insomnia Iron deficiency anemia "heme + stool 2015, subsequent EGD and colonoscopy neg except for polyp" Lumbar disc herniation Lumbar radiculopathy Morbid obesity Paroxysmal atrial fibrillation Ventricular septal defect Vitamin B12 deficiency Surgical History Status post cardiac catheterization "2013, 50% LAD, 40% RCA" Status post cystoscopy "with right ureteroscopy, laser lithotripsy, basket stone extraction" Status post gastric bypass for obesity Family History Other No pertinent family history Social History Smoking Status: Never smoker Second Hand Exposure: No; Do You Dip or Chew Tobacco: No; Tobacco Cessation Education Requested by Patient: No Hx Alcohol Use: No Hx Substance Use: No Preferred Language: Yakut Communication Ability: Effective Hearing Ability: Normal Pinmaker Required: No Beliefs That Will Affect Care: None marital status: Single Current Living Situation: Parent Current Living Situation Comment: with parents in one story home with ramp to entrance Other Information That Helps Us Care for You: No Feels Safe at Home: Yes Safety Concerns: Feels Safe At This Time Assistive Devices: Cane, Contacts and Glasses Results & Data Vital Signs (Past 12 Hours) Vital Signs Temp Pulse Pulse Resp BP BP Pulse Ox 02/12/23 07:00 118 H 22 119/99 96 02/12/23 07:09 127 H 02/12/23 06:15 126 H 22 105/85 96 02/12/23 04:00 119 H 16 141/100 H 95 02/12/23 03:56 36.9 C 122 H 22 131/91 95 02/12/23 03:08 131/91 02/12/23 03:08 120 H 20 92 02/12/23 03:07 104 H 17 02/12/23 02:01 128/93 02/12/23 02:01 136 H 20 92 02/12/23 02:00 135 H 22 91 02/12/23 01:31 131/84 02/12/23 01:31 124 H 17 93 02/12/23 01:00 108 H 22 91 02/12/23 01:00 116/94 02/12/23 00:30 117/93 02/12/23 00:30 118 H 23 02/12/23 00:01 17 02/12/23 00:01 118/99 02/12/23 00:00 118 H 16 02/11/23 23:30 119/77 02/11/23 23:30 132 H 24 94 02/11/23 23:01 118/88 02/11/23 23:01 126 H 27 H 94 02/11/23 23:00 126 H 24 02/11/23 22:44 124/92 02/11/23 22:44 125 H 19 92 02/11/23 22:30 119/90 02/11/23 22:30 140 H 18 91 02/11/23 22:01 130/108 H 02/11/23 22:01 122 H 21 92 02/11/23 22:00 136 H 21 90 02/11/23 21:30 117/86 02/11/23 21:30 123 H 23 95 02/11/23 21:10 92 02/11/23 21:09 128/104 H 02/12/23 00:00 125 H 18 118/99 94 02/12/23 00:02 133 H 118/99 02/11/23 22:43 133 H 124/92 02/11/23 22:38 131 H 119/90 02/11/23 21:26 131 H 128/104 H 02/11/23 21:26 131 H 128/104 H 02/11/23 21:18 139 H O2 Del Method 02/12/23 07:00 Room Air 02/12/23 07:09 02/12/23 06:15 Room Air 02/12/23 04:00 Room Air 02/12/23 03:56 Room Air 02/12/23 03:08 02/12/23 03:08 02/12/23 03:07 02/12/23 02:01 02/12/23 02:01 02/12/23 02:00 02/12/23 01:31 02/12/23 01:31 02/12/23 01:00 02/12/23 01:00 02/12/23 00:30 02/12/23 00:30 02/12/23 00:01 02/12/23 00:01 02/12/23 00:00 02/11/23 23:30 02/11/23 23:30 02/11/23 23:01 02/11/23 23:01 02/11/23 23:00 02/11/23 22:44 02/11/23 22:44 02/11/23 22:30 02/11/23 22:30 02/11/23 22:01 02/11/23 22:01 02/11/23 22:00 02/11/23 21:30 02/11/23 21:30 02/11/23 21:10 02/11/23 21:09 02/12/23 00:00 Room Air 02/12/23 00:02 02/11/23 22:43 02/11/23 22:38 02/11/23 21:26 02/11/23 21:26 02/11/23 21:18
[2023-02-12] MEDS ORDERED: METOPROLOL SUCC 50MG EXT REL TAB PO SCH (09:00)
[2023-02-12] MEDS ORDERED: TORSEMIDE 20 MG TAB PO SCH (09:00)
[2023-02-12] MEDS ORDERED: METOPROLOL SUCC 25MG EXT REL TAB PO STA (09:12)
[2023-02-12] MEDS: FLUoxetine HCL 10 MG CAP PO SCH (09:24)
[2023-02-12] MEDS: MAGNESIUM OXIDE 400 MG TAB PO SCH ×2 (09:25→20:45)
[2023-02-12] MEDS: SPIRONOLACTONE 25 MG TAB PO SCH (09:26)
[2023-02-12] MEDS ORDERED: IOVERSOL 350 MG 125mL Prefilled Syringe IV ONE (12:31)
--- NOTE | 2023-02-12 13:01 | CT Scan Report ---
CT thoracic spine w con CLINICAL HISTORY: concern for epidural abscess/discitis TECHNIQUE: Multidetector row helical CT of the thoracic spine was performed without administration of intravenous contrast. Coronal and sagittal reformations were obtained. Automated dose lowering techn iques and/or adjustment according to patient size were utilized for this exam. Comparison: None available at the time of this dictation. FINDINGS: Exam is limited by patient body habitus. No acute fractures are identified. Degenerative changes are noted in the visualized spine. Vertebral body alignment is within normal limits. Surrounding soft tis sues are unremarkable. IMPRESSION: No acute abnormality and in particular no evidence of epidural abscess, although evaluation is limite d by patient body habitus. ACT 112: Negative or not required by law. Electronically signed by: David Mcclain M.D. 02/12/2023 1:00 PM
--- NOTE | 2023-02-12 13:09 | CT Scan Report ---
LUMBAR SPINE CT WITH CONTRAST CLINICAL HISTORY: Rule out epidural abscess. COMPARISON STUDY: Lumbar spine CT September 10, 2021. Lumbar spine MRI September 28, 2021. TECHNIQUE: Axial images of the lumbar spine were obtained following intravenous injection of 118 cc o f Optiray 350 IV. Sagittal and coronal reconstructions were viewed. Automated exposure control was ut ilized for the study. A dose lowering technique was utilized adhering to the principles of ALARA. FINDINGS: For purposes of numbering on this exam, the L5-S1 disc space is assigned to axial image 160 of 211. Alignment of the lumbar spine is anatomic. This exam is markedly compromised by quantum kuldip le artifact. No fractures are identified. Severe disc space narrowing at L2-L3 is noted. This is irene lar to abdominal CT of December 05, 2022. This likely reflects sequela of discitis/osteomyelitis shown on MRI of September 28, 2021. There is moderate multilevel facet arthrosis. There is also moderate multilev el disc space narrowing and ossified ptosis within the lumbar spine. Vacuum disc phenomenon at severa l levels is noted. Evaluation of the central canal and neural foramen is nearly nondiagnostic. No epi dural fluid collection is identified although sensitivity is markedly diminished on this exam. Parave rtebral soft tissues are unremarkable. IMPRESSION: 1. Exam significantly compromised by quantum mottle artifact. No lumbar spine fractures identified. 2. Moderate multilevel degenerative disc disease and facet arthrosis within the lumbar spine. 3. Near nondiagnostic evaluation of the epidural space however no fluid collection identified by CT. 4. Severe disc space narrowing at L2-L3 which likely reflects sequela of previous episode of discitis /osteomyelitis shown on MRI of September 28, 2021. ACT 112: Negative or not required by law. Electronically signed by: Perry Zheng M.D. 02/12/2023 1:08 PM
[2023-02-12] MEDS: cefTRIAXone SODIUM 2,000 MG in DEXTROSE 5% 50 ML IV SCH (13:21)
[2023-02-12 13:22] LABS: C Reactive Protein 27.01 mg/dl (0-0.5)
[2023-02-12 13:28] LABS: Troponin I High Sensitivity 9.5 pg/ml (0-20)
--- NOTE | 2023-02-12 13:59 | CT Scan Report ---
CT SCAN OF THE CERVICAL SPINE WITH IV CONTRAST CLINICAL HISTORY: Back pain. Report history spinal infection. Clinical concern for epidural abscess. COMPARISON STUDY: CT angiogram the neck dated 12/25/2021. Limited cervical spine MRI images dated 01/14. TECHNIQUE: CT scan of the cervical spine is performed from the skull base to the upper thoracic spine following the IV administration of 118 cc of Optiray 350. Images are reviewed in the axial, sagittal , and coronal planes. IV contrast was administered without complication. A dose lowering technique w as utilized adhering to the principles of ALARA. The examination is degraded by large body habitus, a nd by streak artifact from the patient's shoulders. CT DOSE: 2244.79 mGy.cm FINDINGS: Skeletal structures: The skeletal structures are well mineralized. There is no evidence of fracture o r subluxation involving the cervical spine. There is no bony erosion or periostitis. Vertebral body h eight and alignment are maintained. There is straightening of the cervical lordosis. Anterior osteop hytes are seen throughout. The odontoid process and lateral masses are intact. The atlantoaxial artic ulation is preserved. The spinous processes appear intact. There is moderate multilevel cervical spon dylosis. Uncovertebral and facet arthropathy contribute to neural foraminal narrowing at several leve ls. Intervertebral discs: There is moderate disc space narrowing at C4-C5, C5-C6, C6-C7, and C7-T1. Central canal: Posterior disc osteophyte complexes at C5-C6 and C6-C7 may contribute to acquired comp romise of the central canal. There is no CT evidence of epidural fluid collection. Note that this is not well evaluated. Soft tissues: The prevertebral soft tissues are within normal limits. The carotid arteries and jugula r veins are patent bilaterally. Nonspecific edema within the posterior paraspinous soft tissues at C2 -C5 was much better assessed on the limited MRI sequences. No fluid collection is identified. Calvarium: The visualized calvarium at the skull base appears intact. Brain parenchyma: Partially visualized brain parenchyma at the skull base is within normal limits. Sinuses and mastoids: The visualized paranasal sinuses are clear. The mastoid air cells are well pneu matized. Lung apices: Clear as visualized. IMPRESSION: 1. Significantly streak artifact degraded examination. 2. There is no CT evidence of epidural fluid collection. Note that this is not well assessed by CT an d is not excluded. 3. No acute bony abnormality is seen involving the cervical spine. 4. Edema within the posterior paraspinous soft tissues is again seen at C3-C5. This was much better a ssessed on the limited MRI sequences from yesterday. There is no fluid collection identified in the p araspinous tissues to suggest abscess. 5. Additional findings as above. ACT 112: Negative or not required by law. Electronically signed by: Kameron Diaz M.D. 02/12/2023 1:58 PM
--- NOTE | 2023-02-12 15:15 | Hospitalist Progress Note ---
Date of Service February 12, 2023 Assessment & Plan (1) Back pain: Plan: 62-year-old male with past medical significant for hypothyroidism, atrial fibrillation, hypertension, morbid obesity, s/p gastric bypass, CHF, obstructive sleep apnea could not tolerate CPAP currently uses oxygen on most nights as per patient, GERD, history of CAD, history of osteomyelitis and discitis at L2-L3 in 2021 and epidural abscess requiring 1 month stay in [facility] and and rehab comes with neck pain radiating to shoulders and back since last Wednesday. Gram-positive bacteremia Hx of discitis and epidural abscess in 2021 Presents to the hospital with back pain and generalized weakness since last 6 days Afebrile, normotensive. In atrial fibrillation Blood culture with gram-positive cocci in chains. PCR positive for Streptococcus agalactiae Cervical, thoracic and lumbar CT chest no acute abnormality/no evidence of epidural abscess. MRI was not able to be done due to difficulty lying down. ESR minimally elevated to 24 Zosyn changed over to ceftriaxone. Also on daptomycin. Echocardiogram ordered to rule out vegetation. Infectious disease consulted for comanagement. Repeat blood culture in a.m. A-fib with RVR On presentation; presented with A-fib with RVR. On metoprolol succinate and Xarelto Last admission diltiazem was stopped because of pause and bradycardia Cardiology on board; metoprolol dose has been increased. Acute on chronic CHFpEF Reduced right ventricular function Continue home diuretics torsemide and spironolactone We will place him on IV Lasix 40 mg twice daily starting tomorrow AM. His discharge weight was 186 kg; currently he weighs about 197. DVT ruled out by venous duplex. Obstructive sleep apnea Could not tolerate CPAP as per patient Uses oxygen 2 to 3 L on most nights as per patient History of CAD On beta-stef and Xarelto Morbid obesity needs counseling DVT prophylaxis Xarelto Disposition telemetry floor Full code Time spent evaluating patient, direct bedside care, chart review, placing orders, interpretation of diagnostic studies, discussion with consultants, patient, and family members, as well as other required patient management activities is 60 minutes. Please note the above document was generated using voice recognition software. It may contain grammatical, syntax or spelling errors. Any formal questions or concerns about the content, text or information contained within the body of this dictation should be directly addressed to the provider for clarification (2) Atrial fibrillation with rapid ventricular response: Admission and Anticipated Discharge Date Admission Date: February 11, 2023 Subjective patient seen and examined at bedside. He is comfortable; not in any distress. Telemetry shows a.fib with ventricular rate in 120-130s Review of Systems Review of Systems: All systems reviewed & are unremarkable except as noted in Subjective Physical Exam Physical Exam: Constitutional: Alert orient x3; not in distress. Morbidly obese. Respiratory: Bilateral vesicular breath sound. Cardiovascular: Irregular, no murmur, no edema Vessels: no JVD or carotid bruit Chest: normal inspection of chest Abdomen: normal bowel sounds, soft, nontender, no hepatosplenomegaly Musculoskeletal: no cyanosis or clubbing, extremities motor strength 5/5. 2+ pitting edema present. Skin: no rashes, warm and dry normal turgor Neurologic: PERRL, EOMI, accommodation nl, no face palsy, no dysarthria CN's II- XI intact bilaterally and moves all extremities Psychiatric: A+Ox3, euthymic affect Results & Data Results & Data Vital Signs (Past 12 Hours) Vital Signs Temp Pulse Pulse Resp BP BP Pulse Ox 02/12/23 14:00 112 H 20 124/98 94 02/12/23 09:28 114 H 20 126/95 94 02/12/23 07:00 118 H 22 119/99 96 02/12/23 07:09 127 H 02/12/23 06:15 126 H 22 105/85 96 02/12/23 04:00 119 H 16 141/100 H 95 02/12/23 03:56 36.9 C 122 H 22 131/91 95 O2 Del Method 02/12/23 14:00 Room Air 02/12/23 09:28 Room Air 02/12/23 07:00 Room Air 02/12/23 07:09 02/12/23 06:15 Room Air 02/12/23 04:00 Room Air 02/12/23 03:56 Room Air Laboratory Results Laboratory Results WBC 9.89 K/ul (4.8-10.8) 02/12/23 04:30 RBC 4.42 M/uL (4.70-6.10) L 02/12/23 04:30 Hgb 13.1 g/dl (14.0-18.0) L 02/12/23 04:30 Hct 39.0 % (42.0-52.0) L 02/12/23 04:30 MCV 88.2 fL (80.0-100.0) 02/12/23 04:30 MCH 29.6 pg (25.0-34.0) 02/12/23 04:30 MCHC 33.6 g/dL (32.0-36.0) 02/12/23 04:30 RDW Std Deviation 56.2 fL (36.4-46.3) H 02/12/23 04:30 RDW Coeff of Phu 17.4 % (11.5-14.5) H 02/12/23 04:30 Plt Count 110 K/uL (130-400) L 02/12/23 04:30 MPV 10.0 fL (9.4-12.4) 02/12/23 04:30 Immature Gran % (Auto) 2.0 % 02/12/23 04:30 Neut % (Auto) 76.2 % 02/12/23 04:30 Lymph % (Auto) 9.5 % 02/12/23 04:30 Gregory % (Auto) 12.0 % 02/12/23 04:30 Eos % (Auto) 0.0 % 02/12/23 04:30 Baso % (Auto) 0.3 % 02/12/23 04:30 Neut # (Auto) 7.53 K/uL (1.40-6.50) H 02/12/23 04:30 Lymph # (Auto) 0.94 K/uL (1.20-3.40) L 02/12/23 04:30 Gregory # (Auto) 1.19 K/uL (0.11-0.59) H 02/12/23 04:30 Eos # (Auto) 0.00 K/uL (0.00-0.50) 02/12/23 04:30 Baso # (Auto) 0.03 K/uL (0.00-0.20) 02/12/23 04:30 Immature Gran # (Auto) 0.20 K/uL (0.01-0.20) 02/12/23 04:30 ESR 24 mm/hr (0-20) H 02/12/23 11:31 PT 13.5 Seconds (9.0-12.0) H 02/11/23 14:35 INR 1.2 (0.9-1.1) H 02/11/23 14:35 APTT 39.0 Seconds (21.0-31.0) H 02/11/23 14:35 PTT Ratio 1.4 02/11/23 14:35 Sodium 134 mmol/L (136-145) L 02/12/23 04:30 Potassium 3.5 mmol/L (3.5-5.1) 02/12/23 04:30 Chloride 100 mmol/L (98-107) 02/12/23 04:30 Carbon Dioxide 26 mmol/L (21-32) 02/12/23 04:30 Anion Gap 8 (3-11) 02/12/23 04:30 BUN 21 mg/dl (6-23) 02/12/23 04:30 Creatinine 0.96 mg/dl (0.6-1.4) 02/12/23 04:30 Est Cr Clr Drug Dosing 140.3 ml/min 02/12/23 04:30 Est GFR ( Amer) 97.8 ml/min 02/12/23 04:30 Est GFR (Non-Af Amer) 84.4 ml/min 02/12/23 04:30 BUN/Creatinine Ratio 21.9 (10-20) H 02/12/23 04:30 Glucose 117 mg/dl (70-99(Fasting)) H 02/12/23 04:30 Calcium 8.4 mg/dl (8.6-10.3) L 02/12/23 04:30 Magnesium 1.8 mg/dl (1.7-2.4) 02/12/23 04:30 Total Bilirubin 1.7 mg/dl (0.2-1.0) H 02/11/23 14:35 AST 45 U/L (13-39) H 02/11/23 14:35 ALT 43 U/L (7-52) 02/11/23 14:35 Alkaline Phosphatase 124 U/L (34-104) H 02/11/23 14:35 Troponin I High Sens 9.5 pg/ml (0-20) 02/12/23 Unknown C-Reactive Protein 27.01 mg/dl (0-0.5) H 02/12/23 Unknown Total Protein 6.5 gm/dl (6.0-8.3) 02/11/23 14:35 Albumin 4.1 gm/dl (3.4-5.0) 02/11/23 14:35 Globulin 2.4 gm/dl (2.5-4.0) L 02/11/23 14:35 Albumin/Globulin Ratio 1.7 (0.9-2) 02/11/23 14:35 Urine Color Yellow 02/11/23 16:59 Urine Appearance Clear (Clear) 02/11/23 16:59 Urine pH 5.5 (4.5-7.5) 02/11/23 16:59 Ur Specific Gwynn 1.015 (1.000-1.030) 02/11/23 16:59 Urine Protein 1+ (Negative) H 02/11/23 16:59 Urine Glucose (UA) Negative (Negative) 02/11/23 16:59 Urine Ketones Trace (Negative) H 02/11/23 16:59 Urine Blood Negative (Negative) 02/11/23 16:59 Urine Nitrite Negative (Negative) 02/11/23 16:59 Urine Bilirubin Negative (Negative) 02/11/23 16:59 Urine Urobilinogen Negative (Negative) 02/11/23 16:59 Ur Leukocyte Esterase Negative (Negative) 02/11/23 16:59 Urine WBC (Auto) 1-5 /hpf (0-5) 02/11/23 16:59 Urine RBC (Auto) 0-4 /hpf (0-4) 02/11/23 16:59 U Hyaline Cast (Auto) 1-5 /lpf (0-5) 02/11/23 16:59 U Epithel Cells (Auto) 10-20 /lpf (0-5) H 02/11/23 16:59 Urine Bacteria (Auto) Negative (Negative) 02/11/23 16:59 Streptococcus sp PCR DETECTED (NotDetected) A 02/11/23 17:23 Strep agalactiae (PCR) DETECTED (NotDetected) A 02/11/23 17:23 Bld Cult ID Panel PCR See PCR Comment (NotDetected) 02/11/23 17:23 Impressions Chest X-Ray 02/11/23 15:23 XR chest 1V not portable CLINICAL HISTORY: Chest pain, nonspecific TECHNIQUE: Single frontal radiograph of the chest was obtained. Comparison: Comparison is made to chest radiograph 11/30/2022 FINDINGS: Exam is limited by underpenetration. Cardiomegaly is noted. The lungs are clear. No evidence of pleural effusion or pneumothorax. IMPRESSION: No acute chest disease. ACT 112: Negative or not required by law. Electronically signed by: David Mcclain M.D. 02/11/2023 3:36 PM Cervical Spine MRI 02/11/23 16:48 Exam(s): MRI C SPINE EXAM: MR Cervical Spine Without Intravenous Contrast CLINICAL HISTORY: Reason for exam: ? infection with back pain and a recent previous b. TECHNIQUE: Magnetic resonance images of the cervical spine without intravenous contrast in multiple planes. COMPARISON: No relevant prior studies available. FINDINGS: Limitations: Limited study. Only sagittal noncontrast images were able to be acquired which are motion degraded. No axial images were able to be acquired. Vertebrae: Straightening of the cervical spine with loss of normal lordosis. Alignment is maintained with preservation of vertebral body heights. No abnormal bone marrow signal. No acute fracture. Spinal cord: Unremarkable. No gross abnormal spinal cord signal. No gross spinal canal stenosis. Soft tissues: Soft tissue edema within the posterior soft tissues extending from the C3 through C5 level centered at the C3 spinous process. IMPRESSION: 1. Soft tissue edema within the posterior soft tissues extending from the C3 through C5 level centered at the C3 spinous process. 2. Limited study. Only sagittal noncontrast images were able to be acquired which are motion degraded. No axial images were able to be acquired. Electronically signed by: Cj Crawford M.D. 02/11/23 22:22 PM Venous Doppler Study 02/12/23 00:27 Exam(s): US VENOUS BILATERAL LOWER EXTREMITIES EXAM: US Duplex Bilateral Lower Extremities Veins CLINICAL HISTORY: Reason for exam: b/l edema and right leg erythema . DVT?. TECHNIQUE: Real-time duplex ultrasound scan of the bilateral lower extremity veins integrating B-mode two-dimensional vascular structure, Doppler spectral analysis, color flow Doppler imaging and compression. COMPARISON: No relevant prior studies available. FINDINGS: Right deep veins: Unremarkable. No DVT in the right common femoral, femoral, proximal deep femoral or popliteal veins. The veins demonstrate normal color flow, are normally compressible, with normal phasic flow and/or augmentation response. Left deep veins: Unremarkable. No DVT in the left common femoral, femoral, proximal deep femoral or popliteal veins. The veins demonstrate normal color flow, are normally compressible, with normal phasic flow and/or augmentation response. Soft tissues: No acute findings. No popliteal cyst. IMPRESSION: No evidence of bilateral lower extremity deep venous thrombosis. Electronically signed by: Cj Crawford M.D. 02/12/23 03:[address] 02/12/23 11:31 CT SCAN OF THE CERVICAL SPINE WITH IV CONTRAST CLINICAL HISTORY: Back pain. Report history spinal infection. Clinical concern for epidural abscess. COMPARISON STUDY: CT angiogram the neck dated 12/25/2021. Limited cervical spine MRI images dated 02/11/2023. TECHNIQUE: CT scan of the cervical spine is performed from the skull base to the upper thoracic spine following the IV administration of 118 cc of Optiray 350. Images are reviewed in the axial, sagittal, and coronal planes. IV contrast was administered without complication. A dose lowering technique was utilized adhering to the principles of ALARA. The examination is degraded by large body habitus, and by streak artifact from the patient's shoulders. CT DOSE: 2244.79 mGy.cm FINDINGS: Skeletal structures: The skeletal structures are well mineralized. There is no evidence of fracture or subluxation involving the cervical spine. There is no bony erosion or periostitis. Vertebral body height and alignment are maintained. There is straightening of the cervical lordosis. Anterior osteophytes are seen throughout. The odontoid process and lateral masses are intact. The atlantoaxial articulation is preserved. The spinous processes appear intact. There is moderate multilevel cervical spondylosis. Uncovertebral and facet arthropathy contribute to neural foraminal narrowing at several levels. Intervertebral discs: There is moderate disc space narrowing at C4-C5, C5-C6, C6-C7, and C7-T1. Central canal: Posterior disc osteophyte complexes at C5-C6 and C6-C7 may contribute to acquired compromise of the central canal. There is no CT evidence of epidural fluid collection. Note that this is not well evaluated. Soft tissues: The prevertebral soft tissues are within normal limits. The carotid arteries and jugular veins are patent bilaterally. Nonspecific edema within the posterior paraspinous soft tissues at C2-C5 was much better assessed on the limited MRI sequences. No fluid collection is identified. Calvarium: The visualized calvarium at the skull base appears intact. Brain parenchyma: Partially visualized brain parenchyma at the skull base is within normal limits. Sinuses and mastoids: The visualized paranasal sinuses are clear. The mastoid air cells are well pneumatized. Lung apices: Clear as visualized. IMPRESSION: 1. Significantly streak artifact degraded examination. 2. There is no CT evidence of epidural fluid collection. Note that this is not well assessed by CT and is not excluded. 3. No acute bony abnormality is seen involving the cervical spine. 4. Edema within the posterior paraspinous soft tissues is again seen at C3-C5. This was much better assessed on the limited MRI sequences from yesterday. There is no fluid collection identified in the paraspinous tissues to suggest abscess. 5. Additional findings as above. ACT 112: Negative or not required by law. Electronically signed by: Kameron Diaz M.D. 02/12/2023 1:[address] 02/12/23 11:[address] WITH CONTRAST CLINICAL HISTORY: Rule out epidural abscess. COMPARISON STUDY: Lumbar spine CT September 10, 2021. Lumbar spine MRI September 28, 2021. TECHNIQUE: Axial images of the lumbar spine were obtained following intravenous injection of 118 cc of Optiray 350 IV. Sagittal and coronal reconstructions were viewed. Automated exposure control was utilized for the study. A dose lowering technique was utilized adhering to the principles of ALARA. FINDINGS: For purposes of numbering on this exam, the L5-S1 disc space is assigned to axial image 160 of 211. Alignment of the lumbar spine is anatomic. This exam is markedly compromised by quantum mottle artifact. No fractures are identified. Severe disc space narrowing at L2-L3 is noted. This is similar to abdominal CT of December 05, 2022. This likely reflects sequela of discitis/osteomyelitis shown on MRI of September 28, 2021. There is moderate multilevel facet arthrosis. There is also moderate multilevel disc space narrowing and ossified ptosis within the lumbar spine. Vacuum disc phenomenon at several levels is noted. Evaluation of the central canal and neural foramen is nearly nondiagnostic. No epidural fluid collection is identified although sensitivity is markedly diminished on this exam. Paravertebral soft tissues are unremarkable. IMPRESSION: 1. Exam significantly compromised by quantum mottle artifact. No lumbar spine fractures identified. 2. Moderate multilevel degenerative disc disease and facet arthrosis within the lumbar spine. 3. Near nondiagnostic evaluation of the epidural space however no fluid collection identified by CT. 4. Severe disc space narrowing at L2-L3 which likely reflects sequela of previous episode of discitis/osteomyelitis shown on MRI of September 28, 2021. ACT 112: Negative or not required by law. Electronically signed by: Perry Zheng M.D. 02/12/2023 1:[address] 02/12/23 11:31 CT thoracic spine w con CLINICAL HISTORY: concern for epidural abscess/discitis TECHNIQUE: Multidetector row helical CT of the thoracic spine was performed w ithout administration of intravenous contrast. Coronal and sagittal reformations were obtained. Automated dose lowering techniques and/or adjustment according to patient size were utilized for this exam. Comparison: None available at the time of this dictation. FINDINGS: Exam is limited by patient body habitus. No acute fractures are identified. Degenerative changes are noted in the visualized spine. Vertebral body alignment is within normal limits. Surrounding soft tissues are unremarkable. IMPRESSION: No acute abnormality and in particular no evidence of epidural abscess, although evaluation is limited by patient body habitus. ACT 112: Negative or not required by law. Electronically signed by: David Mcclain M.D. 02/12/2023 1:00 PM
[2023-02-12] MEDS: RIVAROXABAN 20 MG TAB PO SCH (16:39)
[2023-02-12] MEDS: CYCLOBENZAPRINE HCL 10 MG TAB PO PRN (20:45)
[2023-02-12] MEDS: FERROUS SULFATE 325 MG TAB PO SCH (20:45)
[2023-02-12] MEDS: traZODone HCL 50 MG TAB PO PRN (20:45)
[2023-02-12] MEDS: METOPROLOL SUCC 25MG EXT REL TAB PO SCH (20:45)
[2023-02-13] MEDS: DAPTOmycin 750 MG in SYRINGE 0 ML IV SCH (02:46)
[2023-02-13] MEDS: HYDROmorphone INJ 0.5 MG/0.5 ML SYR IV PRN ×5 (05:42→22:03)
[2023-02-13 06:25] LABS: Basophils # (auto) 0.03 K/uL (0.00-0.20); Basophils % (auto) 0.3 %; Eosinophils # (auto) 0.03 K/uL (0.00-0.50); Eosinophils % (auto) 0.3 %; Hematocrit (blood only) 40.2 % (42.0-52.0); Hemoglobin 13.1 g/dl (14.0-18.0); Immature Granulocytes # (auto) 0.08 K/uL (0.01-0.20); Immature Granulocytes % (auto) 0.9 %; Lymphocytes # (auto) 1.27 K/uL (1.20-3.40); Lymphocytes % (auto) 14.6 %; Mean Corpuscular Hemoglobin 29.1 pg (25.0-34.0); Mean Corpuscular Hgb Conc 32.6 g/dL (32.0-36.0); Mean Corpuscular Volume 89.3 fL (80.0-100.0); Mean Platelet Volume 9.8 fL (9.4-12.4); Monocytes # (auto) 0.89 K/uL (0.11-0.59); Monocytes % (auto) 10.3 %; Neutrophils # (auto) 6.38 K/uL (1.40-6.50); Neutrophils % (auto) 73.6 %; Platelet Count 127 K/uL (130-400); RDW Coefficient of Variation 17.4 % (11.5-14.5); RDW Standard Deviation 57.5 fL (36.4-46.3); White Blood Count 8.68 K/ul (4.8-10.8)
[2023-02-13 06:33] LABS: Albumin Globulin Ratio 1.2 (0.9-2); Albumin Level 3.4 gm/dl (3.4-5.0); BUN Creatinine Ratio 18.9 (10-20); Bilirubin,Total 1.1 mg/dl (0.2-1.0); Calcium 8.6 mg/dl (8.6-10.3); Creatinine Clr Calc Pharmacy 149.7 ml/min; Est GFR (African American) 105.7 ml/min; Est GFR (Non-African American) 91.2 ml/min; Globulin 2.8 gm/dl (2.5-4.0); Magnesium 1.9 mg/dl (1.7-2.4); Potassium 3.7 mmol/L (3.5-5.1); Total Protein 6.2 gm/dl (6.0-8.3)
[2023-02-13] MEDS: FUROSEMIDE 40 MG/4 ML VIAL IV SCH ×2 (08:35→14:16)
[2023-02-13] MEDS: FLUoxetine HCL 10 MG CAP PO SCH (08:36)
[2023-02-13] MEDS: SPIRONOLACTONE 25 MG TAB PO SCH (08:36)
[2023-02-13] MEDS: MAGNESIUM OXIDE 400 MG TAB PO SCH ×2 (08:37→20:18)
[2023-02-13] MEDS: GABAPENTIN 300 MG CAP PO SCH ×2 (08:37→20:18)
[2023-02-13] MEDS: METOPROLOL SUCC 25MG EXT REL TAB PO SCH ×2 (08:37→19:09)
[2023-02-13] MEDS: oxyCODONE HCL IR 5 MG TAB (IMMEDIATE RELEASE) PO PRN ×3 (10:07→20:19)
--- NOTE | 2023-02-13 10:34 | Orthopedic Consultation ---
Date of Consultation February 13, 2023 Assessment & Plan (1) Cervical spondylosis: CAT scan of cervical spine demonstrates evidence of multilevel cervical spondylosis. The images are not clear in light of his body habitus. However on presentation I am not convinced this is a cervical radicular problem. He seems to have some intra-articular issues with the left shoulder. A CAT scan has been ordered and agree with this plan. He is a significant surgical risk in light of his health history and from spine standpoint and recommend tertiary care. History of Present Illness Reason for Consultation: Neck and shoulder pain Attending Physician: Jovi Cohen MD History of Present Illness This is a 60-year-old male who presents with severe cervicalgia rating into the bilateral shoulders. He states the left is worse than the right. He is left- hand dominant. 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 He denies any specific trauma fall or event precipitating this pain. He states pain radiates into the upper arm but not below the elbows. He has some right thumb discomfort. Denies any weakness to the upper extremities or radicular component. Allergies Allergy/AdvReac Type Severity Reaction Status Date / Time No Known Allergies Allergy ` Verified 02/11/23 20:29 Home Medications Medication Instructions Recorded Confirmed Type diclofenac sodium 1 % topical gel 2 g topical QID PRN Pain 11/24/18 02/11/23 History magnesium oxide 400 mg PO BID 11/24/18 02/11/23 History rivaroxaban 20 mg tablet (Xarelto) 20 mg PO QPM 11/24/18 02/11/23 History ferrous sulfate 325 mg (65 mg 325 mg PO QPM 11/28/18 02/11/23 History iron) tablet (iron) meloxicam 15 mg tablet 15 mg PO DAILY PRN arthritis 09/28/21 02/11/23 History ergocalciferol (vitamin D2) 1,250 50,000 unit PO WK #4 caps 12/29/21 02/11/23 Rx mcg (50,000 unit) capsule (Vitamin D2) trazodone 50 mg tablet 150 mg PO QDD PRN Sleep #15 tabs 12/29/21 02/11/23 Rx fluoxetine 10 mg capsule 10 mg PO DAILY 11/30/22 02/11/23 History gabapentin 300 mg capsule 600 mg PO AMHS 11/30/22 02/11/23 History tramadol 50 mg tablet 50 mg PO BID PRN Pain 11/30/22 02/11/23 History metoprolol succinate 50 mg 50 mg PO BID #60 tabs 12/07/22 02/11/23 Rx tablet,extended release 24 hr spironolactone 25 mg tablet 25 mg PO QAM #30 tabs 12/07/22 02/11/23 Rx cyclobenzaprine 10 mg tablet 10 mg PO HS PRN Muscle Spasm 02/11/23 02/11/23 History tolnaftate 1 % topical powder 1 applic topical BID 02/11/23 02/11/23 History torsemide 20 mg tablet 20 mg PO QAM 02/11/23 02/11/23 History Patient History Medical History Chest pain Chronic anticoagulation Coronary artery disease "moderate disease per cardiac cath [facility] 2013; 50% LAD, 40% RCA" Depression Diabetes mellitus type 2, controlled Borderline blood sugar previously but no longer an issue Gram-positive bacteremia History of colonic polyps History of urinary calculi "right ureteral stone 2015" Hx of sciatica Hypertension Hypothyroidism Insomnia Iron deficiency anemia "heme + stool 2015, subsequent EGD and colonoscopy neg except for polyp" Lumbar disc herniation Lumbar radiculopathy Morbid obesity Paroxysmal atrial fibrillation Ventricular septal defect Vitamin B12 deficiency Surgical History Status post cardiac catheterization "[place]2013, 50% LAD, 40% RCA" Status post cystoscopy "with right ureteroscopy, laser lithotripsy, basket stone extraction" Status post gastric bypass for obesity Family History Other No pertinent family history Social History Smoking Status: Never smoker Second Hand Exposure: No; Do You Dip or Chew Tobacco: No; Tobacco Cessation Education Requested by Patient: No Hx Alcohol Use: No Hx Substance Use: No Preferred Language: Hebrew Communication Ability: Effective Hearing Ability: Normal Critical Care Rn Required: No Beliefs That Will Affect Care: None marital status: Single Current Living Situation: Parent Current Living Situation Comment: with parents in one story home with ramp to entrance Other Information That Helps Us Care for You: No Feels Safe at Home: Yes Safety Concerns: Feels Safe At This Time Assistive Devices: Cane Physical Exam Physical Exam: On exam patient is in bed. He is morbidly obese. He has reasonable cervical range of motion without gross Lhermitte's phenomenon or Spurling sign. Is negative Brian sign bilaterally. He is reasonable strength in grasp bilaterally. His severe discomfort with range of motion of the left shoulder compared to the right. He exhibits severe discomfort with direct palpation over the left shoulder. Results & Data Vital Signs (Past 12 Hours) Vital Signs Temp Pulse Pulse Resp BP Pulse Ox O2 Del Method 02/13/23 08:33 36.6 C 112 H 20 126/75 94 Room Air 02/13/23 03:40 36.7 C 90 19 131/90 98 Nasal Cannula 02/13/23 00:24 115 H 02/12/23 23:42 36.7 C 106 H 26 H 104/73 93 Nasal Cannula O2 Flow Rate 02/13/23 08:33 02/13/23 03:40 2 02/13/23 00:24 02/12/23 23:42 2
[2023-02-13] MEDS ORDERED: IOVERSOL 350 MG 125mL Prefilled Syringe IV ONE (11:21)
--- NOTE | 2023-02-13 11:39 | CT Scan Report ---
CT shoulder LT w con CLINICAL HISTORY: Redness and swelling.? septic arthritis TECHNIQUE: Multidetector row helical CT of the left shoulder was performed without intravenous contra st. Coronal and sagittal reformations were obtained. Automated dose lowering techniques and/or adjust ment according to patient size were utilized for this examination. CT DOSE: 452.15 mGy.cm Comparison: None available at the time of this dictation. FINDINGS: The osseous structures are without fracture or dislocation. Degenerative changes are seen. No evidenc e of joint effusion or bony destruction. No joint effusion is seen. Mild soft tissue edema is seen. IMPRESSION: Degenerative changes and mild soft tissue edema without evidence of septic arthritis or abscess. ACT 112: Negative or not required by law. Electronically signed by: David Mcclain M.D. 02/13/2023 11:36 AM
[2023-02-13] MEDS: cefTRIAXone SODIUM 2,000 MG in DEXTROSE 5% 50 ML IV SCH (11:48)
--- NOTE | 2023-02-13 14:35 | Hospitalist Progress Note ---
Date of Service February 13, 2023 Assessment & Plan (1) Back pain: Plan: 62-year-old male with past medical significant for hypothyroidism, atrial fibrillation, hypertension, morbid obesity, s/p gastric bypass, CHF, obstructive sleep apnea could not tolerate CPAP currently uses oxygen on most nights as per patient, GERD, history of CAD, history of osteomyelitis and discitis at L2-L3 in 2021 and epidural abscess requiring 1 month stay in [facility] [place] and and rehab comes with neck pain radiating to shoulders and back since last Wednesday. Gram-positive bacteremia Hx of discitis and epidural abscess in 2021 left Shoulder cellulitis Presents to the hospital with shoulder pain and generalized weakness since last 6 days Afebrile, normotensive. In atrial fibrillation Blood culture with gram-positive cocci in chains. PCR positive for Streptococ cus agalactiae Cervical, thoracic and lumbar CT chest no acute abnormality/no evidence of epidural abscess. MRI was not able to be done due to difficulty lying down. ESR minimally elevated to 24 CT of the left shoulder did not show any concerns of septic arthritis. Mild soft tissue edema present. Echocardiogram shows EF of 60 to 65%; no vegetation reported. Similar echo compared to his echocardiogram from November 2022 Continue on ceftriaxone and daptomycin. Follow-up repeat blood culture Infectious disease consulted for comanagement. We will follow-up on repeat blood culture Orthopedic consulted for left shoulder pain and decreased range of motion. On metoprolol 75 mg twice daily. A-fib with RVR On presentation; presented with A-fib with RVR. On metoprolol succinate and Xarelto Last admission diltiazem was stopped because of pause and bradycardia Cardiology on board; metoprolol dose has been increased. Acute on chronic CHFpEF Reduced right ventricular function on IV Lasix 40 mg twice daily . His discharge weight was 186 kg; currently he weighs about 197. DVT ruled out by venous duplex. Strict input and output. Daily weights. Obstructive sleep apnea Could not tolerate CPAP as per patient Uses oxygen 2 to 3 L on most nights as per patient History of CAD On beta-stef and Xarelto Morbid obesity needs counseling DVT prophylaxis Xarelto Disposition telemetry floor Full code Time spent evaluating patient, direct bedside care, chart review, placing orders, interpretation of diagnostic studies, discussion with consultants, patient, and family members, as well as other required patient management activities is 60 minutes. Please note the above document was generated using voice recognition software. It may contain grammatical, syntax or spelling errors. Any formal questions or concerns about the content, text or information contained within the body of this dictation should be directly addressed to the provider for clarification (2) Atrial fibrillation with rapid ventricular response: Admission and Anticipated Discharge Date Admission Date: February 11, 2023 Subjective Patient seen and examined at bedside. He reports pain on his left shoulder. No fever or chills overnight. He is saturating well on room air. Review of Systems Review of Systems: All systems reviewed & are unremarkable except as noted in Subjective Physical Exam Physical Exam: Constitutional: Alert orient x3; not in distress. Morbidly obese. Respiratory: Bilateral vesicular breath sound. Cardiovascular: Irregular, no murmur, no edema Vessels: no JVD or carotid bruit Chest: normal inspection of chest Abdomen: normal bowel sounds, soft, nontender, no hepatosplenomegaly Musculoskeletal: no cyanosis or clubbing, extremities motor strength 5/5. 2+ pitting edema present. Left shoulder has overlying erythema; range of motion is severely decreased due to pain Skin: no rashes, warm and dry normal turgor Neurologic: PERRL, EOMI, accommodation nl, no face palsy, no dysarthria CN's II- XI intact bilaterally and moves all extremities Psychiatric: A+Ox3, euthymic affect Results & Data Results & Data Vital Signs (Past 12 Hours) Vital Signs Temp Pulse Resp BP Pulse Ox O2 Del Method O2 Flow Rate 02/13/23 11:50 36.6 C 109 H 20 107/67 93 Room Air 02/13/23 08:33 36.6 C 112 H 20 126/75 94 Room Air 02/13/23 03:40 36.7 C 90 19 131/90 98 Nasal Cannula 2 Laboratory Results Laboratory Results WBC 8.68 K/ul (4.8-10.8) 02/13/23 05:49 RBC 4.50 M/uL (4.70-6.10) L 02/13/23 05:49 Hgb 13.1 g/dl (14.0-18.0) L 02/13/23 05:49 Hct 40.2 % (42.0-52.0) L 02/13/23 05:49 MCV 89.3 fL (80.0-100.0) 02/13/23 05:49 MCH 29.1 pg (25.0-34.0) 02/13/23 05:49 MCHC 32.6 g/dL (32.0-36.0) 02/13/23 05:49 RDW Std Deviation 57.5 fL (36.4-46.3) H 02/13/23 05:49 RDW Coeff of Phu 17.4 % (11.5-14.5) H 02/13/23 05:49 Plt Count 127 K/uL (130-400) L 02/13/23 05:49 MPV 9.8 fL (9.4-12.4) 02/13/23 05:49 Immature Gran % (Auto) 0.9 % 02/13/23 05:49 Neut % (Auto) 73.6 % 02/13/23 05:49 Lymph % (Auto) 14.6 % 02/13/23 05:49 Parmer % (Auto) 10.3 % 02/13/23 05:49 Eos % (Auto) 0.3 % 02/13/23 05:49 Baso % (Auto) 0.3 % 02/13/23 05:49 Neut # (Auto) 6.38 K/uL (1.40-6.50) 02/13/23 05:49 Lymph # (Auto) 1.27 K/uL (1.20-3.40) 02/13/23 05:49 Parmer # (Auto) 0.89 K/uL (0.11-0.59) H 02/13/23 05:49 Eos # (Auto) 0.03 K/uL (0.00-0.50) 02/13/23 05:49 Baso # (Auto) 0.03 K/uL (0.00-0.20) 02/13/23 05:49 Immature Gran # (Auto) 0.08 K/uL (0.01-0.20) 02/13/23 05:49 ESR 24 mm/hr (0-20) H 02/12/23 11:31 PT 13.5 Seconds (9.0-12.0) H 02/11/23 14:35 INR 1.2 (0.9-1.1) H 02/11/23 14:35 APTT 39.0 Seconds (21.0-31.0) H 02/11/23 14:35 PTT Ratio 1.4 02/11/23 14:35 Sodium 135 mmol/L (136-145) L 02/13/23 05:49 Potassium 3.7 mmol/L (3.5-5.1) 02/13/23 05:49 Chloride 100 mmol/L (98-107) 02/13/23 05:49 Carbon Dioxide 30 mmol/L (21-32) 02/13/23 05:49 Anion Gap 5 (3-11) 02/13/23 05:49 BUN 17 mg/dl (6-23) 02/13/23 05:49 Creatinine 0.90 mg/dl (0.6-1.4) 02/13/23 05:49 Est Cr Clr Drug Dosing 149.7 ml/min 02/13/23 05:49 Est GFR ( Amer) 105.7 ml/min 02/13/23 05:49 Est GFR (Non-Af Amer) 91.2 ml/min 02/13/23 05:49 BUN/Creatinine Ratio 18.9 (10-20) 02/13/23 05:49 Glucose 95 mg/dl (70-99(Fasting)) 02/13/23 05:49 Calcium 8.6 mg/dl (8.6-10.3) 02/13/23 05:49 Magnesium 1.9 mg/dl (1.7-2.4) 02/13/23 05:49 Total Bilirubin 1.1 mg/dl (0.2-1.0) H 02/13/23 05:49 AST 16 U/L (13-39) 02/13/23 05:49 ALT 22 U/L (7-52) 02/13/23 05:49 Alkaline Phosphatase 107 U/L (34-104) H 02/13/23 05:49 Troponin I High Sens 9.5 pg/ml (0-20) 02/12/23 Unknown C-Reactive Protein 27.01 mg/dl (0-0.5) H 02/12/23 Unknown Total Protein 6.2 gm/dl (6.0-8.3) 02/13/23 05:49 Albumin 3.4 gm/dl (3.4-5.0) 02/13/23 05:49 Globulin 2.8 gm/dl (2.5-4.0) 02/13/23 05:49 Albumin/Globulin Ratio 1.2 (0.9-2) 02/13/23 05:49 Urine Color Yellow 02/11/23 16:59 Urine Appearance Clear (Clear) 02/11/23 16:59 Urine pH 5.5 (4.5-7.5) 02/11/23 16:59 Ur Specific Power 1.015 (1.000-1.030) 02/11/23 16:59 Urine Protein 1+ (Negative) H 02/11/23 16:59 Urine Glucose (UA) Negative (Negative) 02/11/23 16:59 Urine Ketones Trace (Negative) H 02/11/23 16:59 Urine Blood Negative (Negative) 02/11/23 16:59 Urine Nitrite Negative (Negative) 02/11/23 16:59 Urine Bilirubin Negative (Negative) 02/11/23 16:59 Urine Urobilinogen Negative (Negative) 02/11/23 16:59 Ur Leukocyte Esterase Negative (Negative) 02/11/23 16:59 Urine WBC (Auto) 1-5 /hpf (0-5) 02/11/23 16:59 Urine RBC (Auto) 0-4 /hpf (0-4) 02/11/23 16:59 U Hyaline Cast (Auto) 1-5 /lpf (0-5) 02/11/23 16:59 U Epithel Cells (Auto) 10-20 /lpf (0-5) H 02/11/23 16:59 Urine Bacteria (Auto) Negative (Negative) 02/11/23 16:59 Streptococcus sp PCR DETECTED (NotDetected) A 02/11/23 17:23 Strep agalactiae (PCR) DETECTED (NotDetected) A 02/11/23 17:23 Bld Cult ID Panel PCR See PCR Comment (NotDetected) 02/11/23 17:23 Impressions Chest X-Ray 02/11/23 15:23 XR chest 1V not portable CLINICAL HISTORY: Chest pain, nonspecific TECHNIQUE: Single frontal radiograph of the chest was obtained. Comparison: Comparison is made to chest radiograph 11/30/2022 FINDINGS: Exam is limited by underpenetration. Cardiomegaly is noted. The lungs are clear. No evidence of pleural effusion or pneumothorax. IMPRESSION: No acute chest disease. ACT 112: Negative or not required by law. Electronically signed by: David Mcclain M.D. 02/11/2023 3:36 PM Cervical Spine MRI 02/11/23 16:48 Exam(s): MRI C SPINE EXAM: MR Cervical Spine Without Intravenous Contrast CLINICAL HISTORY: Reason for exam: ? infection with back pain and a recent previous b. TECHNIQUE: Magnetic resonance images of the cervical spine without intravenous contrast in multiple planes. COMPARISON: No relevant prior studies available. FINDINGS: Limitations: Limited study. Only sagittal noncontrast images were able to be acquired which are motion degraded. No axial images were able to be acquired. Vertebrae: Straightening of the cervical spine with loss of normal lordosis. Alignment is maintained with preservation of vertebral body heights. No abnormal bone marrow signal. No acute fracture. Spinal cord: Unremarkable. No gross abnormal spinal cord signal. No gross spinal canal stenosis. Soft tissues: Soft tissue edema within the posterior soft tissues extending from the C3 through C5 level centered at the C3 spinous process. IMPRESSION: 1. Soft tissue edema within the posterior soft tissues extending from the C3 through C5 level centered at the C3 spinous process. 2. Limited study. Only sagittal noncontrast images were able to be acquired which are motion degraded. No axial images were able to be acquired. Electronically signed by: Cj Crawford M.D. 02/11/23 22:22 PM Venous Doppler Study 02/12/23 00:27 Exam(s): US VENOUS BILATERAL LOWER EXTREMITIES EXAM: US Duplex Bilateral Lower Extremities Veins CLINICAL HISTORY: Reason for exam: b/l edema and right leg erythema . DVT?. TECHNIQUE: Real-time duplex ultrasound scan of the bilateral lower extremity veins integrating B-mode two-dimensional vascular structure, Doppler spectral analysis, color flow Doppler imaging and compression. COMPARISON: No relevant prior studies available. FINDINGS: Right deep veins: Unremarkable. No DVT in the right common femoral, femoral, proximal deep femoral or popliteal veins. The veins demonstrate normal color flow, are normally compressible, with normal phasic flow and/or augmentation response. Left deep veins: Unremarkable. No DVT in the left common femoral, femoral, proximal deep femoral or popliteal veins. The veins demonstrate normal color flow, are normally compressible, with normal phasic flow and/or augmentation response. Soft tissues: No acute findings. No popliteal cyst. IMPRESSION: No evidence of bilateral lower extremity deep venous thrombosis. Electronically signed by: Cj Crawford M.D. 02/12/23 03:[address] 02/12/23 11:31 CT SCAN OF THE CERVICAL SPINE WITH IV CONTRAST CLINICAL HISTORY: Back pain. Report history spinal infection. Clinical concern for epidural abscess. COMPARISON STUDY: CT angiogram the neck dated 12/25/2021. Limited cervical spine MRI images dated 02/11/2023. TECHNIQUE: CT scan of the cervical spine is performed from the skull base to the upper thoracic spine following the IV administration of 118 cc of Optiray 350. Images are reviewed in the axial, sagittal, and coronal planes. IV contrast was administered without complication. A dose lowering technique was utilized adhering to the principles of ALARA. The examination is degraded by large body habitus, and by streak artifact from the patient's shoulders. CT DOSE: 2244.79 mGy.cm FINDINGS: Skeletal structures: The skeletal structures are well mineralized. There is no evidence of fracture or subluxation involving the cervical spine. There is no bony erosion or periostitis. Vertebral body height and alignment are maintained. There is straightening of the cervical lordosis. Anterior osteophytes are seen throughout. The odontoid process and lateral masses are intact. The atlantoaxial articulation is preserved. The spinous processes appear intact. There is moderate multilevel cervical spondylosis. Uncovertebral and facet arthropathy contribute to neural foraminal narrowing at several levels. Intervertebral discs: There is moderate disc space narrowing at C4-C5, C5-C6, C6-C7, and C7-T1. Central canal: Posterior disc osteophyte complexes at C5-C6 and C6-C7 may contribute to acquired compromise of the central canal. There is no CT evidence of epidural fluid collection. Note that this is not well evaluated. Soft tissues: The prevertebral soft tissues are within normal limits. The carotid arteries and jugular veins are patent bilaterally. Nonspecific edema within the posterior paraspinous soft tissues at C2-C5 was much better assessed on the limited MRI sequences. No fluid collection is identified. Calvarium: The visualized calvarium at the skull base appears intact. Brain parenchyma: Partially visualized brain parenchyma at the skull base is within normal limits. Sinuses and mastoids: The visualized paranasal sinuses are clear. The mastoid air cells are well pneumatized. Lung apices: Clear as visualized. IMPRESSION: 1. Significantly streak artifact degraded examination. 2. There is no CT evidence of epidural fluid collection. Note that this is not well assessed by CT and is not excluded. 3. No acute bony abnormality is seen involving the cervical spine. 4. Edema within the posterior paraspinous soft tissues is again seen at C3-C5. This was much better assessed on the limited MRI sequences from yesterday. There is no fluid collection identified in the paraspinous tissues to suggest abscess. 5. Additional findings as above. ACT 112: Negative or not required by law. Electronically signed by: Kameron Diaz M.D. 02/12/2023 1:[address] 02/12/23 11:[address] WITH CONTRAST CLINICAL HISTORY: Rule out epidural abscess. COMPARISON STUDY: Lumbar spine CT September 10, 2021. Lumbar spine MRI September 28, 2021. TECHNIQUE: Axial images of the lumbar spine were obtained following intravenous injection of 118 cc of Optiray 350 IV. Sagittal and coronal reconstructions were viewed. Automated exposure control was utilized for the study. A dose lowering technique was utilized adhering to the principles of ALARA. FINDINGS: For purposes of numbering on this exam, the L5-S1 disc space is assigned to axial image 160 of 211. Alignment of the lumbar spine is anatomic. This exam is markedly compromised by quantum mottle artifact. No fractures are identified. Severe disc space narrowing at L2-L3 is noted. This is similar to abdominal CT of December 05, 2022. This likely reflects sequela of discitis/osteomyelitis shown on MRI of September 28, 2021. There is moderate multilevel facet arthrosis. There is also moderate multilevel disc space narrowing and ossified ptosis within the lumbar spine. Vacuum disc phenomenon at several levels is noted. Evaluation of the central canal and neural foramen is nearly nondiagnostic. No epidural fluid collection is identified although sensitivity is markedly diminished on this exam. Paravertebral soft tissues are unremarkable. IMPRESSION: 1. Exam significantly compromised by quantum mottle artifact. No lumbar spine fractures identified. 2. Moderate multilevel degenerative disc disease and facet arthrosis within the lumbar spine. 3. Near nondiagnostic evaluation of the epidural space however no fluid collection identified by CT. 4. Severe disc space narrowing at L2-L3 which likely reflects sequela of previous episode of discitis/osteomyelitis shown on MRI of September 28, 2021. ACT 112: Negative or not required by law. Electronically signed by: Perry Zheng M.D. 02/12/2023 1:[address] 02/12/23 11:31 CT thoracic spine w con CLINICAL HISTORY: concern for epidural abscess/discitis TECHNIQUE: Multidetector row helical CT of the thoracic spine was performed without administration of intravenous contrast. Coronal and sagittal reformations were obtained. Automated dose lowering techniques and/or adjustment according to patient size were utilized for this exam. Comparison: None available at the time of this dictation. FINDINGS: Exam is limited by patient body habitus. No acute fractures are identified. Degenerative changes are noted in the visualized spine. Vertebral body alignment is within normal limits. Surrounding soft tissues are unremarkable. IMPRESSION: No acute abnormality and in particular no evidence of epidural abscess, although evaluation is limited by patient body habitus. ACT 112: Negative or not required by law. Electronically signed by: David Mcclain M.D. 02/12/2023 1:[address] 02/13/23 08:54 CT shoulder LT w con CLINICAL HISTORY: Redness and swelling.? septic arthritis TECHNIQUE: Multidetector row helical CT of the left shoulder was performed without intravenous contrast. Coronal and sagittal reformations were obtained. Automated dose lowering techniques and/or adjustment according to patient size were utilized for this examination. CT DOSE: 452.15 mGy.cm Comparison: None available at the time of this dictation. FINDINGS: The osseous structures are without fracture or dislocation. Degenerative changes are seen. No evidence of joint effusion or bony destruction. No joint effusion is seen. Mild soft tissue edema is seen. IMPRESSION: Degenerative changes and mild soft tissue edema without evidence of septic arthritis or abscess. ACT 112: Negative or not required by law. Electronically signed by: David Mcclain M.D. 02/13/2023 11:36 AM
[2023-02-13] MEDS ORDERED: POTASSIUM CHLORIDE CRTAB 20 MEQ TABCR PO STA (17:09)
--- NOTE | 2023-02-13 17:13 | Cardiology Progress Note ---
Date of Service February 13, 2023 Assessment & Plan (1) Permanent atrial fibrillation with rapid ventricular response: (2) Chronic heart failure with preserved ejection fraction (HFpEF): (3) Right heart failure: (4) Back pain: (5) Bacteremia: Plan IMPRESSION: 62 year old male with chronic HFpEF/RHF and permanent atrial fibrillation. Presented due to neck/shoulder pain which started on Wednesday after cleaning at work. Describes left greater than right arm pain. Had preceding day of mild flulike symptoms the day before. Noticed elevated HR over the last month accompanied by palpitations and chest tightness at home. PLAN: Permanent atrial fibrillation-- ventricular rates uncontrolled, ? med compliance at home. Pain likely contributing to patient's elevated rates. Increase metoprolol succinate to 75 mg BID Continue Xarelto 20 mg daily for stroke prevention Replace potassium to a goal of 4.0 and mag of 2.0. HFpEF/RHF-- Patient not examining significantly volume overloaded. Patient transition to IV furosemide. Continue oral spironolactone 25 mg daily. Supplement potassium. Group B beta strep on 07/16 blood cultures Echocardiogram with preserved left ventricular ejection fraction, moderate posteriorly directed mitral regurgitation, unchanged compared to previous echo. No evidence of vegetation within the scope of limitation of the transthoracic study. Discitis certainly a concern clinically given presenting symptoms. Continue empiric antibiotics. Continue Xarelto for stroke prophylaxis, DVT prophylaxis. Admission and Anticipated Discharge Date Admission Date: February 11, 2023 Subjective Patient seen in cardiology follow-up. Notes mild palpitations, but is otherwise comfortable. Nursing this morning telemetry revealed atrial fibrillation with ventricular rate of 110 bpm, at present, rate is higher in the range of 100 2230 bpm however he is comfortable. Holden catheter is in place. 3 L of urine output noted within the last 24 hours. Physical Exam Constitutional: + morbidly obese Eyes: PERRL, conjunctivae normal, anicteric sclerae Respiratory: Mildly reduced breath sounds in the bases Cardiovascular: Rate/Rhythm: + tachycardic and + irregularly irregular Heart Sounds: + murmur (1/6 systolic murmur) Extremities: + edema (2+ bilateral lower extremity edema) Gastrointestinal (Abdomen): normal bowel sounds, soft, nontender, no hepatosplenomegaly Neurologic: No focal deficits Genitourinary: Holden catheter in place draining clear yellow urine Results & Data Vital Signs (Past 12 Hours) Vital Signs Temp Pulse Resp BP Pulse Ox O2 Del Method 02/13/23 16:19 36.7 C 114 H 20 111/76 92 Room Air 02/13/23 11:50 36.6 C 109 H 20 107/67 93 Room Air 02/13/23 08:33 36.6 C 112 H 20 126/75 94 Room Air Laboratory Results Cardiac Enzymes 02/12/23 02/13/23 Range/Units 17:30 05:49 AST 16 (13-39) U/L Troponin I High Sens 6.4 (0-20) pg/ml CBC 02/13/23 Range/Units 05:49 WBC 8.68 (4.8-10.8) K/ul RBC 4.50 L (4.70-6.10) M/uL Hgb 13.1 L (14.0-18.0) g/dl Hct 40.2 L (42.0-52.0) % Plt Count 127 L (130-400) K/uL Neut # (Auto) 6.38 (1.40-6.50) K/uL Lymph # (Auto) 1.27 (1.20-3.40) K/uL [place] # (Auto) 0.89 H (0.11-0.59) K/uL Eos # (Auto) 0.03 (0.00-0.50) K/uL Baso # (Auto) 0.03 (0.00-0.20) K/uL Comprehensive Metabolic Panel 02/13/23 Range/Units 05:49 Sodium 135 L (136-145) mmol/L Potassium 3.7 (3.5-5.1) mmol/L Chloride 100 (98-107) mmol/L Carbon Dioxide 30 (21-32) mmol/L BUN 17 (6-23) mg/dl Creatinine 0.90 (0.6-1.4) mg/dl Glucose 95 (70-99(Fasting)) mg/dl Calcium 8.6 (8.6-10.3) mg/dl AST 16 (13-39) U/L ALT 22 (7-52) U/L Alkaline Phosphatase 107 H (34-104) U/L Total Protein 6.2 (6.0-8.3) gm/dl Albumin 3.4 (3.4-5.0) gm/dl Intake and Output 02/13/23 02/13/23 02/13/23 06:59 14:59 22:59 Intake Total 310 / 310 Output Total 1300 / 1650 1350 / 1350 Balance -1300 / -1460 -1040 / -1040 Intake: IV 70 / 70 cefTRIAXone SODIUM 2,000 mg In 70 / 70 Dextrose 5% 50 ml @ 140 mls/hr IV Q24H [facility] Rx#:[id number] Oral 240 / 240 Output: Urine Amount (Catheter) 1300 / 1650 1350 / 1350 Holden/Indwelling 1300 / 1650 1350 / 1350 Other: Weight 197.9 kg 197.9 kg Weight Measurement Method Built in [facility] Patient Weight 02/14/23 06:59 Weight 197.9 kg
[2023-02-13] MEDS: RIVAROXABAN 20 MG TAB PO SCH (18:42)
--- NOTE | 2023-02-13 18:59 | Orthopedic Consultation ---
Date of Service February 13, 2023 Assessment & Plan (1) Bilateral shoulder pain: I think he is having some shoulder pain but I do not think it is due to a septic joint. The CT scan confirms that. He may have overdid it recently and may require an injection of his shoulders in the future. However, given his current bacteremia I do not advise an injection at this point. He has a little bit of cellulitis on the anterior aspect of his left shoulder compared to the right. We will continue to watch that. I do not see any operative indications for shoulder at this point. I would continue with oral pain control. We will hold off on any cortisone injections due to the bacteremia. He was seen by Dr. Juany mosley as well for his cervical spine. History of Present Illness Reason for Consultation: Bilateral shoulder pain. Requesting Physician: . Attending Physician: Jovi Cohen MD Wu is a 62-year-old male who began experiencing cervical pain rating down to both shoulders several days ago. He does have a history of a lower lumbar infection and epidural abscess. He was noticed to have some redness around his shoulders. He was having pain in his neck. Blood cultures were positive for group B strep. Orthopedics was consulted to evaluate and treat for shoulder pain.. Allergies Allergy/AdvReac Type Severity Reaction Status Date / Time No Known Allergies Allergy ` Verified 02/11/23 20:29 Home Medications Medication Instructions Recorded Confirmed Type diclofenac sodium 1 % topical gel 2 g topical QID PRN Pain 11/24/18 02/11/23 History magnesium oxide 400 mg PO BID 11/24/18 02/11/23 History rivaroxaban 20 mg tablet (Xarelto) 20 mg PO QPM 11/24/18 02/11/23 History ferrous sulfate 325 mg (65 mg 325 mg PO QPM 11/28/18 02/11/23 History iron) tablet (iron) meloxicam 15 mg tablet 15 mg PO DAILY PRN arthritis 09/28/21 02/11/23 History ergocalciferol (vitamin D2) 1,250 50,000 unit PO WK #4 caps 12/29/21 02/11/23 Rx mcg (50,000 unit) capsule (Vitamin D2) trazodone 50 mg tablet 150 mg PO QDD PRN Sleep #15 tabs 12/29/21 02/11/23 Rx fluoxetine 10 mg capsule 10 mg PO DAILY 11/30/22 02/11/23 History gabapentin 300 mg capsule 600 mg PO [facility]HS 11/30/22 02/11/23 History tramadol 50 mg tablet 50 mg PO BID PRN Pain 11/30/22 02/11/23 History metoprolol succinate 50 mg 50 mg PO BID #60 tabs 12/07/22 02/11/23 Rx tablet,extended release 24 hr spironolactone 25 mg tablet 25 mg PO QAM #30 tabs 12/07/22 02/11/23 Rx cyclobenzaprine 10 mg tablet 10 mg PO HS PRN Muscle Spasm 02/11/23 02/11/23 History tolnaftate 1 % topical powder 1 applic topical BID 02/11/23 02/11/23 History torsemide 20 mg tablet 20 mg PO QAM 02/11/23 02/11/23 History Past Med/Surg History Medical History Chest pain Chronic anticoagulation Coronary artery disease "moderate disease per cardiac cath [facility] 2013; 50% LAD, 40% RCA" Depression Diabetes mellitus type 2, controlled Borderline blood sugar previously but no longer an issue Gram-positive bacteremia History of colonic polyps History of urinary calculi "right ureteral stone 2015" Hx of sciatica Hypertension Hypothyroidism Insomnia Iron deficiency anemia "heme + stool 2015, subsequent EGD and colonoscopy neg except for polyp" Lumbar disc herniation Lumbar radiculopathy Morbid obesity Paroxysmal atrial fibrillation Ventricular septal defect Vitamin B12 deficiency Surgical History Status post cardiac catheterization "2013, 50% LAD, 40% RCA" Status post cystoscopy "with right ureteroscopy, laser lithotripsy, basket stone extraction" Status post gastric bypass for obesity Family History Other No pertinent family history Social History Smoking Status: Never smoker Second Hand Exposure: No; Do You Dip or Chew Tobacco: No; Tobacco Cessation Education Requested by Patient: No Hx Alcohol Use: No Hx Substance Use: No Preferred Language: Kinyarwanda Communication Ability: Effective Hearing Ability: Normal [employer] Required: No Beliefs That Will Affect Care: None marital status: Single Current Living Situation: Parent Current Living Situation Comment: with parents in one story home with ramp to entrance Other Information That Helps Us Care for You: No Feels Safe at Home: Yes Safety Concerns: Feels Safe At This Time Assistive Devices: Cane Review of Systems All systems reviewed & are unremarkable except as noted in HPI & below. Physical Exam Physical examination of both shoulders, he has a little bit of redness anteriorly. The left is lower than the right. There is little bit of warmth to the area. He is able to do active forward elevation of his shoulder. He says the pain feels a little bit deep within his shoulders. I do not see any signs of abscesses.. Constitutional WD/WN, vitals as above Eyes PERRL, conjunctivae normal, anicteric sclerae ENMT external ear and nose normal, oropharynx normal Neck trachea midline, no thyromegaly Respiratory normal respiratory effort, lungs clear to auscultation Cardiovascular RRR, no murmur, no edema Gastrointestinal (Abdomen) normal bowel sounds, soft, nontender, no hepatosplenomegaly Skin no rashes, warm and dry Psychiatric A+Ox3, euthymic affect Results & Data Results & Data Laboratory Results . Diagnostic Findings CT scan of the left shoulder shows very minimal osteoarthritis. The rotator cuff is intact. I do not see any significant joint effusion or abscesses on the CT scan of the shoulder.. PG Care Time/CCT Total # of Minutes Spent Total Time Spent with Patient: Total time spent is greater than 50% in coordination of care (as documented) at patient's floor/unit and/or counseling patient: Coding Level of Care Code 52644 IN/OBS CONSULT LVL 4,60M Diagnoses Bilateral shoulder pain M25.511; M25.512
[2023-02-13] MEDS: traZODone HCL 50 MG TAB PO PRN (20:19)
[2023-02-13] MEDS: FERROUS SULFATE 325 MG TAB PO SCH (22:50)
[2023-02-14] MEDS: oxyCODONE HCL IR 5 MG TAB (IMMEDIATE RELEASE) PO PRN ×3 (02:00→19:24)
[2023-02-14] MEDS: DAPTOmycin 750 MG in SYRINGE 0 ML IV SCH (03:43)
[2023-02-14] MEDS: HYDROmorphone INJ 0.5 MG/0.5 ML SYR IV PRN ×2 (03:44→08:26)
[2023-02-14 06:38] LABS: Basophils # (auto) 0.04 K/uL (0.00-0.20); Basophils % (auto) 0.4 %; Eosinophils # (auto) 0.05 K/uL (0.00-0.50); Eosinophils % (auto) 0.5 %; Hematocrit (blood only) 39.2 % (42.0-52.0); Hemoglobin 13.1 g/dl (14.0-18.0); Immature Granulocytes # (auto) 0.12 K/uL (0.01-0.20); Immature Granulocytes % (auto) 1.2 %; Lymphocytes # (auto) 1.52 K/uL (1.20-3.40); Lymphocytes % (auto) 15.3 %; Mean Corpuscular Hemoglobin 29.1 pg (25.0-34.0); Mean Corpuscular Hgb Conc 33.4 g/dL (32.0-36.0); Mean Corpuscular Volume 87.1 fL (80.0-100.0); Mean Platelet Volume 9.4 fL (9.4-12.4); Monocytes # (auto) 0.75 K/uL (0.11-0.59); Monocytes % (auto) 7.5 %; Neutrophils # (auto) 7.46 K/uL (1.40-6.50); Neutrophils % (auto) 75.1 %; Platelet Count 167 K/uL (130-400); RDW Coefficient of Variation 17.2 % (11.5-14.5); RDW Standard Deviation 55.4 fL (36.4-46.3); White Blood Count 9.94 K/ul (4.8-10.8)
[2023-02-14 07:18] LABS: BUN Creatinine Ratio 20.9 (10-20); Calcium 8.2 mg/dl (8.6-10.3); Creatinine Clr Calc Pharmacy 200.9 ml/min; Est GFR (African American) 119.4 ml/min; Potassium 3.3 mmol/L (3.5-5.1)
[2023-02-14] MEDS: METOPROLOL SUCC 25MG EXT REL TAB PO SCH (08:26)
[2023-02-14] MEDS: SPIRONOLACTONE 25 MG TAB PO SCH (08:26)
[2023-02-14] MEDS: MAGNESIUM OXIDE 400 MG TAB PO SCH ×2 (08:26→20:43)
[2023-02-14] MEDS: GABAPENTIN 300 MG CAP PO SCH ×2 (08:26→20:44)
[2023-02-14] MEDS: POTASSIUM CHLORIDE CRTAB 20 MEQ TABCR PO SCH ×2 (08:26→20:44)
[2023-02-14] MEDS: FUROSEMIDE 40 MG/4 ML VIAL IV SCH ×2 (08:26→13:25)
[2023-02-14] MEDS: FLUoxetine HCL 10 MG CAP PO SCH (08:26)
[2023-02-14] MEDS ORDERED: POTASSIUM CHLORIDE CRTAB 20 MEQ TABCR PO SCH (09:00)
--- NOTE | 2023-02-14 12:47 | Cardiology Progress Note ---
Date of Service February 14, 2023 Assessment & Plan (1) Permanent atrial fibrillation with rapid ventricular response: (2) Chronic heart failure with preserved ejection fraction (HFpEF): (3) Right heart failure: (4) Back pain: (5) Bacteremia: Plan IMPRESSION: 62 year old male with chronic HFpEF/RHF and permanent atrial fibrillation. Presented due to neck/shoulder pain which started on Wednesday after cleaning at work. Describes left greater than right arm pain. Had preceding day of mild flulike symptoms the day before. Noticed elevated HR over the last month accompanied by palpitations and chest tightness at home. PLAN: Permanent atrial fibrillation-- ventricular rates uncontrolled, ? med compliance at home. Pain likely contributing to patient's elevated rates. Increase metoprolol succinate to 100 mg BID. Add Digoxin, IV load, then oral. Noted past AV block on diltiazem. Continue Xarelto 20 mg daily for stroke prevention Replace potassium to a goal of 4.0 and mag of 2.0. HFpEF/RHF-- Patient not examining significantly volume overloaded. Furosemide 40 mg IV stared on 02/13/23. Continue oral spironolactone 25 mg daily. Supplement potassium. Group B beta strep on 07/16 blood cultures , on admission. Repeat cultures on from 02/13 drawn on antibiotic therapy negative thus far. Echocardiogram with preserved left ventricular ejection fraction, moderate posteriorly directed mitral regurgitation, unchanged compared to previous echo. No evidence of vegetation within the scope of limitation of the transthoracic study. Discitis certainly a concern clinically given presenting symptoms however imaging technically limited. Spine and ortho input noted and appreciated. CT of left shoulder not suggestive of septic joint. Continue empiric antibiotics. Continue Xarelto for stroke prophylaxis, DVT prophylaxis. Admission and Anticipated Discharge Date Admission Date: February 11, 2023 Subjective Patient seen in cardiology follow-up. Denies subjective cardiology symptoms at present. Ongoing atrial fibrillation with rapid ventricular response noted, ventricular rates in the range of 110 to 120 bpm at rest, and up to 160 bpm with meals. His right arm/shoulder is feeling improved. Patient with ongoing subjective discomfort of the left shoulder/arm that is reproduced with moving his shoulder and with palpitation of the anterior shoulder. Mild anterior erythema noted over that region of the shoulder. He remains afebrile. Holden catheter in place draining clear yellow urine. Physical Exam Constitutional: + morbidly obese Eyes: PERRL, conjunctivae normal, anicteric sclerae Cardiovascular: Rate/Rhythm: + tachycardic and + irregularly irregular Heart Sounds: + murmur (1/6 systolic murmur) Extremities: + edema (2+ bilateral lower extremity edema) Gastrointestinal (Abdomen): normal bowel sounds, soft, nontender, no hepatosplenomegaly Neurologic: PERRL, EOMI, accommodation nl, no face palsy, no dysarthria Genitourinary: Holden catheter in place draining clear yellow urine Results & Data Vital Signs (Past 12 Hours) Vital Signs Temp Pulse Resp BP BP Pulse Ox O2 Del Method 02/14/23 09:44 Room Air 02/14/23 07:41 36.7 C 106 H 20 117/80 91 Room Air 02/14/23 03:37 36.6 C 110 H 21 108/76 90 Room Air Laboratory Results CBC 02/14/23 Range/Units 05:42 WBC 9.94 (4.8-10.8) K/ul RBC 4.50 L (4.70-6.10) M/uL Hgb 13.1 L (14.0-18.0) g/dl Hct 39.2 L (42.0-52.0) % Plt Count 167 (130-400) K/uL Neut # (Auto) 7.46 H (1.40-6.50) K/uL Lymph # (Auto) 1.52 (1.20-3.40) K/uL [place] # (Auto) 0.75 H (0.11-0.59) K/uL Eos # (Auto) 0.05 (0.00-0.50) K/uL Baso # (Auto) 0.04 (0.00-0.20) K/uL Comprehensive Metabolic Panel 02/14/23 Range/Units 05:42 Sodium 135 L (136-145) mmol/L Potassium 3.3 L (3.5-5.1) mmol/L Chloride 97 L (98-107) mmol/L Carbon Dioxide 32 (21-32) mmol/L BUN 14 (6-23) mg/dl Creatinine 0.67 (0.6-1.4) mg/dl Glucose 91 (70-99(Fasting)) mg/dl Calcium 8.2 L (8.6-10.3) mg/dl Intake and Output 02/13/23 02/14/23 02/14/23 22:59 06:59 14:59 Output Total 3500 / 5350 500 / 5350 Balance -3500 / -5040 -500 / -5040 Output: Urine Amount (Catheter) 3500 / 5350 500 / 5350 Holden/Indwelling 3500 / 5350 500 / 5350 Other: Weight 197.6 kg Weight Measurement Method Built in [facility]
--- NOTE | 2023-02-14 12:48 | Hospitalist Progress Note ---
Date of Service February 14, 2023 Assessment & Plan (1) Back pain: Plan: 62-year-old male with past medical significant for hypothyroidism, atrial fibrillation, hypertension, morbid obesity, s/p gastric bypass, CHF, obstructive sleep apnea could not tolerate CPAP currently uses oxygen on most nights as per patient, GERD, history of CAD, history of osteomyelitis and discitis at L2-L3 in 2021 and epidural abscess requiring 1 [place] [facility] [place] comes with neck pain radiating to shoulders and back since last Wednesday. Gram-positive bacteremia Hx of discitis and epidural abscess in 2021 left Shoulder cellulitis Presents to the hospital with shoulder pain and generalized weakness since last 6 days Afebrile, normotensive. In atrial fibrillation 2 out of 4 blood culture on admission positive for group B beta strep. Cervical, thoracic and lumbar CT chest no acute abnormality/no evidence of epidural abscess. MRI was not able to be done due to difficulty lying down. ESR minimally elevated to 24 CT of the left shoulder did not show any concerns of septic arthritis. Mild soft tissue edema present. Echocardiogram shows EF of 60 to 65%; no vegetation reported. Similar echo compared to his echocardiogram from November 2022 Continue on ceftriaxone. Discontinue daptomycin. Will follow repeat blood culture. Infectious disease consulted for comanagement. To determine route and duration of antibiotic. We will follow-up on repeat blood culture A-fib with RVR On presentation; presented with A-fib with RVR. On metoprolol succinate and Xarelto. Metoprolol dose increased to 75 mg twice daily. Last admission diltiazem was stopped because of pause and bradycardia Cardiology on board; metoprolol dose has been increased. Acute on chronic CHFpEF Reduced right ventricular function on IV Lasix 40 mg twice daily . His discharge weight was 186 kg; currently he weighs about 197. DVT ruled out by venous duplex. Strict input and output. Daily weights. On potassium supplement 40 mg twice daily. Obstructive sleep apnea Could not tolerate CPAP as per patient Uses oxygen 2 to 3 L on most nights as per patient History of CAD On beta-stef and Xarelto Morbid obesity needs counseling DVT prophylaxis Xarelto Disposition telemetry floor Full code dispoPT OT pending. Time spent evaluating patient, direct bedside care, chart review, placing orders, interpretation of diagnostic studies, discussion with consultants, patient, and family members, as well as other required patient management activities is 60 minutes. Please note the above document was generated using voice recognition software. It may contain grammatical, syntax or spelling errors. Any formal questions or concerns about the content, text or information contained within the body of this dictation should be directly addressed to the provider for clarification (2) Atrial fibrillation with rapid ventricular response: Admission and Anticipated Discharge Date Admission Date: February 11, 2023 Subjective Patient reports slight improvement in the pain on the left shoulder. He is afebrile overnight. Review of Systems Review of Systems: All systems reviewed & are unremarkable except as noted in Subjective Physical Exam Physical Exam: Constitutional: Alert orient x3; not in distress. Morbidly obese. Respiratory: Bilateral vesicular breath sound. Cardiovascular: Irregular, no murmur, no edema Vessels: no JVD or carotid bruit Chest: normal inspection of chest Abdomen: normal bowel sounds, soft, nontender, no hepatosplenomegaly Musculoskeletal: no cyanosis or clubbing, extremities motor strength 5/5. 2+ pitting edema present. Left shoulder has overlying erythema; slight improvement compared to yesterday. Range of motion slightly improved. Skin: no rashes, warm and dry normal turgor Neurologic: PERRL, EOMI, accommodation nl, no face palsy, no dysarthria CN's II- XI intact bilaterally and moves all extremities Psychiatric: A+Ox3, euthymic affect Results & Data Results & Data Vital Signs (Past 12 Hours) Vital Signs Temp Pulse Resp BP BP Pulse Ox O2 Del Method 02/14/23 12:43 37.0 C 110 H 20 108/69 93 Room Air 02/14/23 09:44 Room Air 02/14/23 07:41 36.7 C 106 H 20 117/80 91 Room Air 02/14/23 03:37 36.6 C 110 H 21 108/76 90 Room Air Laboratory Results Laboratory Results WBC 9.94 K/ul (4.8-10.8) 02/14/23 05:42 RBC 4.50 M/uL (4.70-6.10) L 02/14/23 05:42 Hgb 13.1 g/dl (14.0-18.0) L 02/14/23 05:42 Hct 39.2 % (42.0-52.0) L 02/14/23 05:42 MCV 87.1 fL (80.0-100.0) 02/14/23 05:42 MCH 29.1 pg (25.0-34.0) 02/14/23 05:42 MCHC 33.4 g/dL (32.0-36.0) 02/14/23 05:42 RDW Std Deviation 55.4 fL (36.4-46.3) H 02/14/23 05:42 RDW Coeff of Phu 17.2 % (11.5-14.5) H 02/14/23 05:42 Plt Count 167 K/uL (130-400) 02/14/23 05:42 MPV 9.4 fL (9.4-12.4) 02/14/23 05:42 Immature Gran % (Auto) 1.2 % 02/14/23 05:42 Neut % (Auto) 75.1 % 02/14/23 05:42 Lymph % (Auto) 15.3 % 02/14/23 05:42 Jenkins % (Auto) 7.5 % 02/14/23 05:42 Eos % (Auto) 0.5 % 02/14/23 05:42 Baso % (Auto) 0.4 % 02/14/23 05:42 Neut # (Auto) 7.46 K/uL (1.40-6.50) H 02/14/23 05:42 Lymph # (Auto) 1.52 K/uL (1.20-3.40) 02/14/23 05:42 Jenkins # (Auto) 0.75 K/uL (0.11-0.59) H 02/14/23 05:42 Eos # (Auto) 0.05 K/uL (0.00-0.50) 02/14/23 05:42 Baso # (Auto) 0.04 K/uL (0.00-0.20) 02/14/23 05:42 Immature Gran # (Auto) 0.12 K/uL (0.01-0.20) 02/14/23 05:42 ESR 24 mm/hr (0-20) H 02/12/23 11:31 PT 13.5 Seconds (9.0-12.0) H 02/11/23 14:35 INR 1.2 (0.9-1.1) H 02/11/23 14:35 APTT 39.0 Seconds (21.0-31.0) H 02/11/23 14:35 PTT Ratio 1.4 02/11/23 14:35 Sodium 135 mmol/L (136-145) L 02/14/23 05:42 Potassium 3.3 mmol/L (3.5-5.1) L 02/14/23 05:42 Chloride 97 mmol/L (98-107) L 02/14/23 05:42 Carbon Dioxide 32 mmol/L (21-32) 02/14/23 05:42 Anion Gap 6 (3-11) 02/14/23 05:42 BUN 14 mg/dl (6-23) 02/14/23 05:42 Creatinine 0.67 mg/dl (0.6-1.4) 02/14/23 05:42 Est Cr Clr Drug Dosing 200.9 ml/min 02/14/23 05:42 Est GFR ( Amer) 119.4 ml/min 02/14/23 05:42 Est GFR (Non-Af Amer) 103.0 ml/min 02/14/23 05:42 BUN/Creatinine Ratio 20.9 (10-20) H 02/14/23 05:42 Glucose 91 mg/dl (70-99(Fasting)) 02/14/23 05:42 Calcium 8.2 mg/dl (8.6-10.3) L 02/14/23 05:42 Magnesium 1.9 mg/dl (1.7-2.4) 02/13/23 05:49 Total Bilirubin 1.1 mg/dl (0.2-1.0) H 02/13/23 05:49 AST 16 U/L (13-39) 02/13/23 05:49 ALT 22 U/L (7-52) 02/13/23 05:49 Alkaline Phosphatase 107 U/L (34-104) H 02/13/23 05:49 Troponin I High Sens 9.5 pg/ml (0-20) 02/12/23 Unknown C-Reactive Protein 27.01 mg/dl (0-0.5) H 02/12/23 Unknown Total Protein 6.2 gm/dl (6.0-8.3) 02/13/23 05:49 Albumin 3.4 gm/dl (3.4-5.0) 02/13/23 05:49 Globulin 2.8 gm/dl (2.5-4.0) 02/13/23 05:49 Albumin/Globulin Ratio 1.2 (0.9-2) 02/13/23 05:49 Urine Color Yellow 02/11/23 16:59 Urine Appearance Clear (Clear) 02/11/23 16:59 Urine pH 5.5 (4.5-7.5) 02/11/23 16:59 Ur Specific [place] 1.015 (1.000-1.030) 02/11/23 16:59 Urine Protein 1+ (Negative) H 02/11/23 16:59 Urine Glucose (UA) Negative (Negative) 02/11/23 16:59 Urine Ketones Trace (Negative) H 02/11/23 16:59 Urine Blood Negative (Negative) 02/11/23 16:59 Urine Nitrite Negative (Negative) 02/11/23 16:59 Urine Bilirubin Negative (Negative) 02/11/23 16:59 Urine Urobilinogen Negative (Negative) 02/11/23 16:59 Ur Leukocyte Esterase Negative (Negative) 02/11/23 16:59 Urine WBC (Auto) 1-5 /hpf (0-5) 02/11/23 16:59 Urine RBC (Auto) 0-4 /hpf (0-4) 02/11/23 16:59 U Hyaline Cast (Auto) 1-5 /lpf (0-5) 02/11/23 16:59 U Epithel Cells (Auto) 10-20 /lpf (0-5) H 02/11/23 16:59 Urine Bacteria (Auto) Negative (Negative) 02/11/23 16:59 Streptococcus sp PCR DETECTED (NotDetected) A 02/11/23 17:23 Strep agalactiae (PCR) DETECTED (NotDetected) A 02/11/23 17:23 Bld Cult ID Panel PCR See PCR Comment (NotDetected) 02/11/23 17:23 Impressions Chest X-Ray 02/11/23 15:23 XR chest 1V not portable CLINICAL HISTORY: Chest pain, nonspecific TECHNIQUE: Single frontal radiograph of the chest was obtained. Comparison: Comparison is made to chest radiograph 11/30/2022 FINDINGS: Exam is limited by underpenetration. Cardiomegaly is noted. The lungs are clear. No evidence of pleural effusion or pneumothorax. IMPRESSION: No acute chest disease. ACT 112: Negative or not required by law. Electronically signed by: David Mcclain M.D. 02/11/2023 3:36 PM Cervical Spine MRI 02/11/23 16:48 Exam(s): MRI C SPINE EXAM: MR Cervical Spine Without Intravenous Contrast CLINICAL HISTORY: Reason for exam: ? infection with back pain and a recent previous b. TECHNIQUE: Magnetic resonance images of the cervical spine without intravenous contrast in multiple planes. COMPARISON: No relevant prior studies available. FINDINGS: Limitations: Limited study. Only sagittal noncontrast images were able to be acquired which are motion degraded. No axial images were able to be acquired. Vertebrae: Straightening of the cervical spine with loss of normal lordosis. Alignment is maintained with preservation of vertebral body heights. No abnormal bone marrow signal. No acute fracture. Spinal cord: Unremarkable. No gross abnormal spinal cord signal. No gross spinal canal stenosis. Soft tissues: Soft tissue edema within the posterior soft tissues extending from the C3 through C5 level centered at the C3 spinous process. IMPRESSION: 1. Soft tissue edema within the posterior soft tissues extending from the C3 through C5 level centered at the C3 spinous process. 2. Limited study. Only sagittal noncontrast images were able to be acquired which are motion degraded. No axial images were able to be acquired. Electronically signed by: Cj Crawford M.D. 02/11/23 22:22 PM Venous Doppler Study 02/12/23 00:27 Exam(s): US VENOUS BILATERAL LOWER EXTREMITIES EXAM: US Duplex Bilateral Lower Extremities Veins CLINICAL HISTORY: Reason for exam: b/l edema and right leg erythema . DVT?. TECHNIQUE: Real-time duplex ultrasound scan of the bilateral lower extremity veins integrating B-mode two-dimensional vascular structure, Doppler spectral analysis, color flow Doppler imaging and compression. COMPARISON: No relevant prior studies available. FINDINGS: Right deep veins: Unremarkable. No DVT in the right common femoral, femoral, proximal deep femoral or popliteal veins. The veins demonstrate normal color flow, are normally compressible, with normal phasic flow and/or augmentation response. Left deep veins: Unremarkable. No DVT in the left common femoral, femoral, proximal deep femoral or popliteal veins. The veins demonstrate normal color flow, are normally compressible, with normal phasic flow and/or augmentation response. Soft tissues: No acute findings. No popliteal cyst. IMPRESSION: No evidence of bilateral lower extremity deep venous thrombosis. Electronically signed by: Cj Crawford M.D. 02/12/23 03:[address] 02/12/23 11:31 CT SCAN OF THE CERVICAL SPINE WITH IV CONTRAST CLINICAL HISTORY: Back pain. Report history spinal infection. Clinical concern for epidural abscess. COMPARISON STUDY: CT angiogram the neck dated 12/25/2021. Limited cervical spine MRI images dated 02/11/2023. TECHNIQUE: CT scan of the cervical spine is performed from the skull base to the upper thoracic spine following the IV administration of 118 cc of Optiray 350. Images are reviewed in the axial, sagittal, and coronal planes. IV contrast was administered without complication. A dose lowering technique was utilized adhering to the principles of ALARA. The examination is degraded by large body habitus, and by streak artifact from the patient's shoulders. CT DOSE: 2244.79 mGy.cm FINDINGS: Skeletal structures: The skeletal structures are well mineralized. There is no evidence of fracture or subluxation involving the cervical spine. There is no bony erosion or periostitis. Vertebral body height and alignment are maintained. There is straightening of the cervical lordosis. Anterior osteophytes are seen throughout. The odontoid process and lateral masses are intact. The atlantoaxial articulation is preserved. The spinous processes appear intact. There is moderate multilevel cervical spondylosis. Uncovertebral and facet arthropathy contribute to neural foraminal narrowing at several levels. Intervertebral discs: There is moderate disc space narrowing at C4-C5, C5-C6, C6 -C7, and C7-T1. Central canal: Posterior disc osteophyte complexes at C5-C6 and C6-C7 may contribute to acquired compromise of the central canal. There is no CT evidence of epidural fluid collection. Note that this is not well evaluated. Soft tissues: The prevertebral soft tissues are within normal limits. The carotid arteries and jugular veins are patent bilaterally. Nonspecific edema within the posterior paraspinous soft tissues at C2-C5 was much better assessed on the limited MRI sequences. No fluid collection is identified. Calvarium: The visualized calvarium at the skull base appears intact. Brain parenchyma: Partially visualized brain parenchyma at the skull base is within normal limits. Sinuses and mastoids: The visualized paranasal sinuses are clear. The mastoid air cells are well pneumatized. Lung apices: Clear as visualized. IMPRESSION: 1. Significantly streak artifact degraded examination. 2. There is no CT evidence of epidural fluid collection. Note that this is not well assessed by CT and is not excluded. 3. No acute bony abnormality is seen involving the cervical spine. 4. Edema within the posterior paraspinous soft tissues is again seen at C3-C5. This was much better assessed on the limited MRI sequences from yesterday. There is no fluid collection identified in the paraspinous tissues to suggest abscess. 5. Additional findings as above. ACT 112: Negative or not required by law. Electronically signed by: Kameron Diaz M.D. 02/12/2023 1:[address] 02/12/23 11:[address] WITH CONTRAST CLINICAL HISTORY: Rule out epidural abscess. COMPARISON STUDY: Lumbar spine CT September 10, 2021. Lumbar spine MRI September 28, 2021. TECHNIQUE: Axial images of the lumbar spine were obtained following intravenous injection of 118 cc of Optiray 350 IV. Sagittal and coronal reconstructions were viewed. Automated exposure control was utilized for the study. A dose lowering technique was utilized adhering to the principles of ALARA. FINDINGS: For purposes of numbering on this exam, the L5-S1 disc space is assigned to axial image 160 of 211. Alignment of the lumbar spine is anatomic. This exam is markedly compromised by quantum mottle artifact. No fractures are identified. Severe disc space narrowing at L2-L3 is noted. This is similar to abdominal CT of December 05, 2022. This likely reflects sequela of discitis/osteomyelitis shown on MRI of September 28, 2021. There is moderate multilevel facet arthrosis. There is also moderate multilevel disc space narrowing and ossified ptosis within the lumbar spine. Vacuum disc phenomenon at several levels is noted. Evaluation of the central canal and neural foramen is nearly nondiagnostic. No epidural fluid collection is identified although sensitivity is markedly diminished on this exam. Paravertebral soft tissues are unremarkable. IMPRESSION: 1. Exam significantly compromised by quantum mottle artifact. No lumbar spine fractures identified. 2. Moderate multilevel degenerative disc disease and facet arthrosis within the lumbar spine. 3. Near nondiagnostic evaluation of the epidural space however no fluid collection identified by CT. 4. Severe disc space narrowing at L2-L3 which likely reflects sequela of previous episode of discitis/osteomyelitis shown on MRI of September 28, 2021. ACT 112: Negative or not required by law. Electronically signed by: Perry Zheng M.D. 02/12/2023 1:[address] 02/12/23 11:31 CT thoracic spine w con CLINICAL HISTORY: concern for epidural abscess/discitis TECHNIQUE: Multidetector row helical CT of the thoracic spine was performed without administration of intravenous contrast. Coronal and sagittal reformations were obtained. Automated dose lowering techniques and/or adjustment according to patient size were utilized for this exam. Comparison: None available at the time of this dictation. FINDINGS: Exam is limited by patient body habitus. No acute fractures are identified. Degenerative changes are noted in the visualized spine. Vertebral body alignment is within normal limits. Surrounding soft tissues are unremarkable. IMPRESSION: No acute abnormality and in particular no evidence of epidural abscess, although evaluation is limited by patient body habitus. ACT 112: Negative or not required by law. Electronically signed by: David Mclcain M.D. 02/12/2023 1:[address] 02/13/23 08:54 CT shoulder LT w con CLINICAL HISTORY: Redness and swelling.? septic arthritis TECHNIQUE: Multidetector row helical CT of the left shoulder was performed without intravenous contrast. Coronal and sagittal reformations were obtained. Automated dose lowering techniques and/or adjustment according to patient size were utilized for this examination. CT DOSE: 452.15 mGy.cm Comparison: None available at the time of this dictation. FINDINGS: The osseous structures are without fracture or dislocation. Degenerative changes are seen. No evidence of joint effusion or bony destruction. No joint effusion is seen. Mild soft tissue edema is seen. IMPRESSION: Degenerative changes and mild soft tissue edema without evidence of septic arthritis or abscess. ACT 112: Negative or not required by law. Electronically signed by: David Mcclain M.D. 02/13/2023 11:36 AM
[2023-02-14] MEDS ORDERED: DIGOXIN 250 MCG in SYRINGE 9 ML IV ONE (13:00)
[2023-02-14] MEDS: cefTRIAXone SODIUM 2,000 MG in DEXTROSE 5% 50 ML IV SCH (13:25)
[2023-02-14] MEDS: RIVAROXABAN 20 MG TAB PO SCH (16:25)
[2023-02-14] MEDS ORDERED: DIGOXIN 125 MCG in SYRINGE 9.5 ML IV ONE (18:00)
[2023-02-14] MEDS: FERROUS SULFATE 325 MG TAB PO SCH (20:43)
[2023-02-14] MEDS: CYCLOBENZAPRINE HCL 10 MG TAB PO PRN (20:43)
[2023-02-14] MEDS: METOPROLOL SUCC 50MG EXT REL TAB PO SCH (20:44)
[2023-02-14] MEDS: traZODone HCL 50 MG TAB PO PRN (20:54)
[2023-02-14] MEDS: DICLOFENAC SOD 1% GEL 100 GM TUBE EXT PRN (21:33)
[2023-02-14] MEDS ORDERED: HYDROmorphone INJ 0.5 MG/0.5 ML SYR IV STA (22:04)
[2023-02-15 06:35] LABS: Basophils # (auto) 0.07 K/uL (0.00-0.20); Basophils % (auto) 0.7 %; Eosinophils # (auto) 0.08 K/uL (0.00-0.50); Eosinophils % (auto) 0.8 %; Hematocrit (blood only) 41.9 % (42.0-52.0); Hemoglobin 13.7 g/dl (14.0-18.0); Immature Granulocytes # (auto) 0.13 K/uL (0.01-0.20); Immature Granulocytes % (auto) 1.3 %; Lymphocytes # (auto) 1.92 K/uL (1.20-3.40); Lymphocytes % (auto) 18.7 %; Mean Corpuscular Hemoglobin 28.9 pg (25.0-34.0); Mean Corpuscular Hgb Conc 32.7 g/dL (32.0-36.0); Mean Corpuscular Volume 88.4 fL (80.0-100.0); Mean Platelet Volume 8.9 fL (9.4-12.4); Monocytes # (auto) 0.71 K/uL (0.11-0.59); Monocytes % (auto) 6.9 %; Neutrophils # (auto) 7.35 K/uL (1.40-6.50); Neutrophils % (auto) 71.6 %; Platelet Count 215 K/uL (130-400); RDW Coefficient of Variation 17.1 % (11.5-14.5); RDW Standard Deviation 54.9 fL (36.4-46.3); Red Blood Count 4.74 M/uL (4.70-6.10); White Blood Count 10.26 K/ul (4.8-10.8)
[2023-02-15 06:55] LABS: BUN Creatinine Ratio 16.4 (10-20); Calcium 8.4 mg/dl (8.6-10.3); Creatinine Clr Calc Pharmacy 192.6 ml/min; Est GFR (African American) 119.4 ml/min; Potassium 3.7 mmol/L (3.5-5.1)
[2023-02-15] MEDS: METOPROLOL SUCC 50MG EXT REL TAB PO SCH ×2 (08:30→20:39)
[2023-02-15] MEDS: SPIRONOLACTONE 25 MG TAB PO SCH (08:31)
[2023-02-15] MEDS: traZODone HCL 50 MG TAB PO PRN (08:31)
[2023-02-15] MEDS: FLUoxetine HCL 10 MG CAP PO SCH (08:31)
[2023-02-15] MEDS: POTASSIUM CHLORIDE CRTAB 20 MEQ TABCR PO SCH ×2 (08:31→20:39)
[2023-02-15] MEDS: GABAPENTIN 300 MG CAP PO SCH ×2 (08:31→20:39)
[2023-02-15] MEDS: MAGNESIUM OXIDE 400 MG TAB PO SCH ×2 (08:31→20:39)
[2023-02-15] MEDS: oxyCODONE HCL IR 5 MG TAB (IMMEDIATE RELEASE) PO PRN ×2 (08:36→20:51)
[2023-02-15] MEDS ORDERED: FUROSEMIDE 40 MG/4 ML VIAL IV SCH (09:00)
--- NOTE | 2023-02-15 09:42 | Orthopedic Progress Note ---
Date of Service February 15, 2023 Assessment & Plan (1) Bilateral shoulder pain: With regards to his shoulders, most of the pain now seems located in the left shoulder. The CT scan showed no signs of abscess or infectious process deep within the shoulder. He may be dealing with a tendinitis issue as well. I would like to give him an injection around the shoulder but I cannot when he is on antibiotics especially for bacteremia. He can continue to treat the shoulder pain with some pain control. He is currently on the antibiotics. With regards to his left knee out see any signs of infection or septic joint. Again, I can give him an injection around his knee. He will need to just continue with anti biotics and the hospitalist will have to work with him on pain control. From an orthopedic standpoint, he is not a good operative candidate. There is not much we can offer him aside from injections. He can follow-up with orthopedics on an as-needed basis. If you have any further questions please feel free to [place] text me or contact in person on her cell phone at [phone]. Joesph Walton was seen and examined at bedside this morning. Unfortunately still having some left shoulder pain. The cellulitis is slightly improved. He is st ill on the antibiotics. He is also complaining of some left knee pain. He has known osteoarthritis of his left knee. He says he has had an injection of his knee in the past. His knee is starting to bother him again. Review of Systems All systems reviewed & are unremarkable except as noted in HPI & below. Physical Exam On physical examination of his left shoulder, he does have tenderness palpation to the anterior aspect of his shoulder little bit of cellulitis. He does have some pain with range of motion of his shoulder. I did some gentle range of motion of his left knee. There is no effusion or signs of cellulitis.. Results & Data Results & Data Laboratory Results . Diagnostic Findings . PG Care Time/CCT Total # of Minutes Spent Total Time Spent with Patient: Total time spent is greater than 50% in coordination of care (as documented) at patient's floor/unit and/or counseling patient: Coding Level of Care Code 41725 Post Operative Follow-Up Diagnoses Bilateral shoulder pain M25.511; M25.512
[2023-02-15] MEDS: ACETAMINOPHEN 325 MG TAB PO PRN ×3 (10:21→22:43)
--- NOTE | 2023-02-15 12:46 | Cardiology Progress Note ---
Date of Service February 15, 2023 Assessment & Plan (1) Permanent atrial fibrillation with rapid ventricular response: (2) Chronic heart failure with preserved ejection fraction (HFpEF): (3) Right heart failure: (4) Back pain: (5) Bacteremia: Plan IMPRESSION: 62 year old male with chronic HFpEF/RHF and permanent atrial fibrillation. Presented due to neck/shoulder pain which started on Wednesday after cleaning at work. Describes left greater than right arm pain. Had preceding day of mild flulike symptoms the day before. Noticed elevated HR over the last month accompanied by palpitations and chest tightness at home. PLAN: Permanent atrial fibrillation-- ventricular rates uncontrolled, ? med compliance at home. Pain likely contributing to patient's elevated rates. Increase metoprolol succinate to 100 mg BID. Add Digoxin, IV load, then oral. Noted past AV block on diltiazem. Continue Xarelto 20 mg daily for stroke prevention Replace potassium to a goal of 4.0 and mag of 2.0. HFpEF/RHF-- Patient not examining significantly volume overloaded. Furosemide 40 mg IV stared on 02/13/23. Continue oral spironolactone 25 mg daily. Supplement potassium. Group B beta strep on 07/16 blood cultures , on admission. Repeat cultures on from 02/13 drawn on antibiotic therapy negative thus far. Echocardiogram with preserved left ventricular ejection fraction, moderate posteriorly directed mitral regurgitation, unchanged compared to previous echo. No evidence of vegetation within the scope of limitation of the transthoracic study. Discitis certainly a concern clinically given presenting symptoms however imaging technically limited. Spine and ortho input noted and appreciated. CT of left shoulder not suggestive of septic joint. Continue empiric antibiotics. Continue Xarelto for stroke prophylaxis, DVT prophylaxis. 02/15/2023 Assessment and plan as above. Patient has had very brisk diuresis over the past 48 hours. May continue to need further diuresis but will hold furosemide until laboratory studies and patient assessed in a.m. Atrial fibrillation rates are trending towards better control. We will continue current dosing of metoprolol and digoxin No bradycardia arrhythmias or pauses on telemetry Admission and Anticipated Discharge Date Admission Date: February 11, 2023 Subjective Patient seen and examined, chart, medications, telemetry reviewed Back and neck and shoulder pain improved but still present No fevers or chills No chest pain or shortness of breath Has manifested significant diuresis over the past 48 hours Review of Systems Review of Systems: All systems reviewed & are unremarkable except as noted in Subjective Physical Exam Constitutional: + morbidly obese Eyes: PERRL, conjunctivae normal, anicteric sclerae Neck: + thick neck Cardiovascular: Rate/Rhythm: + tachycardic and + irregularly irregular Heart Sounds: + murmur (1/6 systolic murmur) Extremities: + edema (2+ bilateral lower extremity edema) Gastrointestinal (Abdomen): normal bowel sounds, soft, nontender, no hepatosplenomegaly Neurologic: PERRL, EOMI, accommodation nl, no face palsy, no dysarthria Results & Data Vital Signs (Past 12 Hours) Vital Signs Temp Pulse Resp BP BP Pulse Ox O2 Del Method 02/15/23 11:34 37 C 103 H 18 103/68 95 Room Air 02/15/23 07:46 36.9 C 102 H 18 119/79 94 Room Air 02/15/23 03:41 36.6 C 61 18 106/71 93 Room Air Laboratory Results Laboratory Results - last 24 hr 02/15/23 02/15/23 06:04 06:04 WBC 10.26 RBC 4.74 Hgb 13.7 L Hct 41.9 L MCV 88.4 MCH 28.9 MCHC 32.7 RDW Std Deviation 54.9 H RDW Coeff of Phu 17.1 H Plt Count 215 MPV 8.9 L Immature Gran % (Auto) 1.3 Neut % (Auto) 71.6 Lymph % (Auto) 18.7 [place] % (Auto) 6.9 Eos % (Auto) 0.8 Baso % (Auto) 0.7 Neut # (Auto) 7.35 H Lymph # (Auto) 1.92 [place] # (Auto) 0.71 H Eos # (Auto) 0.08 Baso # (Auto) 0.07 Immature Gran # (Auto) 0.13 Sodium 136 Potassium 3.7 Chloride 95 L Carbon Dioxide 34 H Anion Gap 7 BUN 11 Creatinine 0.67 Est Cr Clr Drug Dosing 192.6 Est GFR ( Amer) 119.4 Est GFR (Non-Af Amer) 103.0 BUN/Creatinine Ratio 16.4 Glucose 86 Calcium 8.4 L
--- NOTE | 2023-02-15 13:32 | Hospitalist Progress Note ---
Date of Service February 15, 2023 Assessment & Plan (1) Back pain: Plan: 62-year-old male with past medical significant for hypothyroidism, atrial fibrillation, hypertension, morbid obesity, s/p gastric bypass, CHF, obstructive sleep apnea could not tolerate CPAP currently uses oxygen on most nights as per patient, GERD, history of CAD, history of osteomyelitis and discitis at L2-L3 in 2021 and epidural abscess requiring 1 month stay in [facility] and [place]hab comes with neck pain radiating to shoulders and back since last Wednesday. Group B beta strep bacteremia Hx of discitis and epidural abscess in 2021 left Shoulder cellulitis Presents to the hospital with shoulder pain and generalized weakness since last 6 days Afebrile, normotensive. In atrial fibrillation blood culture on admission positive for group B beta strep. Cervical, thoracic and lumbar CT chest no acute abnormality/no evidence of epidural abscess. MRI was not able to be done due to difficulty lying down. ESR minimally elevated to 24 CT of the left shoulder did not show any concerns of septic arthritis. Mild soft tissue edema present. Echocardiogram shows EF of 60 to 65%; no vegetation reported. Similar echo compared to his echocardiogram from November 2022 Continue on ceftriaxone. Repeat blood culture negative so far. The likely source of bacteremia is episode of cellulitis. Appreciate infectious disease recommendation regarding duration of antibiotic/further work-up. A-fib with RVR On presentation; presented with A-fib with RVR. On metoprolol succinate and Xarelto. Metoprolol dose increased to 100 mg twice daily. Also digoxin added. Last admission diltiazem was stopped because of pause and bradycardia Cardiology on board; metoprolol dose has been increased. Acute on chronic CHFpEF Reduced right ventricular function Diuresed with IV diuretics DVT ruled out by venous duplex. Strict input and output. Daily weights. Diuretics currently on hold as per cardiology recommendation. Obstructive sleep apnea Could not tolerate CPAP as per patient Uses oxygen 2 to 3 L on most nights as per patient History of CAD On beta-stef and Xarelto Morbid obesity needs counseling DVT prophylaxis Xarelto Disposition telemetry floor Full code dispoPT OT evaluated the patient; not safe to return home at current level. Recommend inpatient rehab for safety. Time spent evaluating patient, direct bedside care, chart review, placing orders, interpretation of diagnostic studies, discussion with consultants, patient, and family members, as well as other required patient management activities is 60 minutes. Please note the above document was generated using voice recognition software. It may contain grammatical, syntax or spelling errors. Any formal questions or concerns about the content, text or information contained within the body of this dictation should be directly addressed to the provider for clarification (2) Atrial fibrillation with rapid ventricular response: Admission and Anticipated Discharge Date Admission Date: February 11, 2023 Subjective Patient seen and examined at bedside. He reports slight improvement in the left shoulder pain; however it continues to bother him. Telemetry shows atrial fibrillation with ventricular rate in 100s. Review of Systems Review of Systems: All systems reviewed & are unremarkable except as noted in Subjective Physical Exam Physical Exam: Constitutional: Alert orient x3; not in distress. Morbidly obese. Respiratory: Bilateral vesicular breath sound. Cardiovascular: Irregular, no murmur, no edema Vessels: no JVD or carotid bruit Chest: normal inspection of chest Abdomen: normal bowel sounds, soft, nontender, no hepatosplenomegaly Musculoskeletal: no cyanosis or clubbing, extremities motor strength 5/5. 2+ pitting edema present. Left shoulder has overlying erythema; improvement noted compared to previous days . Range of motion slightly improved. Skin: no rashes, warm and dry normal turgor Neurologic: PERRL, EOMI, accommodation nl, no face palsy, no dysarthria CN's II- XI intact bilaterally and moves all extremities Psychiatric: A+Ox3, euthymic affect Results & Data Results & Data Vital Signs (Past 12 Hours) Vital Signs Temp Pulse Resp BP BP Pulse Ox O2 Del Method 02/15/23 11:34 37 C 103 H 18 103/68 95 Room Air 02/15/23 07:46 36.9 C 102 H 18 119/79 94 Room Air 02/15/23 03:41 36.6 C 61 18 106/71 93 Room Air Laboratory Results Laboratory Results WBC 10.26 K/ul (4.8-10.8) 02/15/23 06:04 RBC 4.74 M/uL (4.70-6.10) 02/15/23 06:04 Hgb 13.7 g/dl (14.0-18.0) L 02/15/23 06:04 Hct 41.9 % (42.0-52.0) L 02/15/23 06:04 MCV 88.4 fL (80.0-100.0) 02/15/23 06:04 MCH 28.9 pg (25.0-34.0) 02/15/23 06:04 MCHC 32.7 g/dL (32.0-36.0) 02/15/23 06:04 RDW Std Deviation 54.9 fL (36.4-46.3) H 02/15/23 06:04 RDW Coeff of Phu 17.1 % (11.5-14.5) H 02/15/23 06:04 Plt Count 215 K/uL (130-400) 02/15/23 06:04 MPV 8.9 fL (9.4-12.4) L 02/15/23 06:04 Immature Gran % (Auto) 1.3 % 02/15/23 06:04 Neut % (Auto) 71.6 % 02/15/23 06:04 Lymph % (Auto) 18.7 % 02/15/23 06:04 Keith % (Auto) 6.9 % 02/15/23 06:04 Eos % (Auto) 0.8 % 02/15/23 06:04 Baso % (Auto) 0.7 % 02/15/23 06:04 Neut # (Auto) 7.35 K/uL (1.40-6.50) H 02/15/23 06:04 Lymph # (Auto) 1.92 K/uL (1.20-3.40) 02/15/23 06:04 [place] # (Auto) 0.71 K/uL (0.11-0.59) H 02/15/23 06:04 Eos # (Auto) 0.08 K/uL (0.00-0.50) 02/15/23 06:04 Baso # (Auto) 0.07 K/uL (0.00-0.20) 02/15/23 06:04 Immature Gran # (Auto) 0.13 K/uL (0.01-0.20) 02/15/23 06:04 ESR 24 mm/hr (0-20) H 02/12/23 11:31 PT 13.5 Seconds (9.0-12.0) H 02/11/23 14:35 INR 1.2 (0.9-1.1) H 02/11/23 14:35 APTT 39.0 Seconds (21.0-31.0) H 02/11/23 14:35 PTT Ratio 1.4 02/11/23 14:35 Sodium 136 mmol/L (136-145) 02/15/23 06:04 Potassium 3.7 mmol/L (3.5-5.1) 02/15/23 06:04 Chloride 95 mmol/L (98-107) L 02/15/23 06:04 Carbon Dioxide 34 mmol/L (21-32) H 02/15/23 06:04 Anion Gap 7 (3-11) 02/15/23 06:04 BUN 11 mg/dl (6-23) 02/15/23 06:04 Creatinine 0.67 mg/dl (0.6-1.4) 02/15/23 06:04 Est Cr Clr Drug Dosing 192.6 ml/min 02/15/23 06:04 Est GFR ( Amer) 119.4 ml/min 02/15/23 06:04 Est GFR (Non-Af Amer) 103.0 ml/min 02/15/23 06:04 BUN/Creatinine Ratio 16.4 (10-20) 02/15/23 06:04 Glucose 86 mg/dl (70-99(Fasting)) 02/15/23 06:04 Calcium 8.4 mg/dl (8.6-10.3) L 02/15/23 06:04 Magnesium 1.9 mg/dl (1.7-2.4) 02/13/23 05:49 Total Bilirubin 1.1 mg/dl (0.2-1.0) H 02/13/23 05:49 AST 16 U/L (13-39) 02/13/23 05:49 ALT 22 U/L (7-52) 02/13/23 05:49 Alkaline Phosphatase 107 U/L (34-104) H 02/13/23 05:49 Troponin I High Sens 9.5 pg/ml (0-20) 02/12/23 Unknown C-Reactive Protein 27.01 mg/dl (0-0.5) H 02/12/23 Unknown Total Protein 6.2 gm/dl (6.0-8.3) 02/13/23 05:49 Albumin 3.4 gm/dl (3.4-5.0) 02/13/23 05:49 Globulin 2.8 gm/dl (2.5-4.0) 02/13/23 05:49 Albumin/Globulin Ratio 1.2 (0.9-2) 02/13/23 05:49 Urine Color Yellow 02/11/23 16:59 Urine Appearance Clear (Clear) 02/11/23 16:59 Urine pH 5.5 (4.5-7.5) 02/11/23 16:59 Ur Specific [place] 1.015 (1.000-1.030) 02/11/23 16:59 Urine Protein 1+ (Negative) H 02/11/23 16:59 Urine Glucose (UA) Negative (Negative) 02/11/23 16:59 Urine Ketones Trace (Negative) H 02/11/23 16:59 Urine Blood Negative (Negative) 02/11/23 16:59 Urine Nitrite Negative (Negative) 02/11/23 16:59 Urine Bilirubin Negative (Negative) 02/11/23 16:59 Urine Urobilinogen Negative (Negative) 02/11/23 16:59 Ur Leukocyte Esterase Negative (Negative) 02/11/23 16:59 Urine WBC (Auto) 1-5 /hpf (0-5) 02/11/23 16:59 Urine RBC (Auto) 0-4 /hpf (0-4) 02/11/23 16:59 U Hyaline Cast (Auto) 1-5 /lpf (0-5) 02/11/23 16:59 U Epithel Cells (Auto) 10-20 /lpf (0-5) H 02/11/23 16:59 Urine Bacteria (Auto) Negative (Negative) 02/11/23 16:59 Streptococcus sp PCR DETECTED (NotDetected) A 02/11/23 17:23 Strep agalactiae (PCR) DETECTED (NotDetected) A 02/11/23 17:23 Bld Cult ID Panel PCR See PCR Comment (NotDetected) 02/11/23 17:23 Impressions Chest X-Ray 02/11/23 15:23 XR chest 1V not portable CLINICAL HISTORY: Chest pain, nonspecific TECHNIQUE: Single frontal radiograph of the chest was obtained. Comparison: Comparison is made to chest radiograph 11/30/2022 FINDINGS: Exam is limited by underpenetration. Cardiomegaly is noted. The lungs are clear. No evidence of pleural effusion or pneumothorax. IMPRESSION: No acute chest disease. ACT 112: Negative or not required by law. Electronically signed by: David Mcclain M.D. 02/11/2023 3:36 PM Cervical Spine MRI 02/11/23 16:48 Exam(s): MRI C SPINE EXAM: MR Cervical Spine Without Intravenous Contrast CLINICAL HISTORY: Reason for exam: ? infection with back pain and a recent previous b. TECHNIQUE: Magnetic resonance images of the cervical spine without intravenous contrast in multiple planes. COMPARISON: No relevant prior studies available. FINDINGS: Limitations: Limited study. Only sagittal noncontrast images were able to be acquired which are motion degraded. No axial images were able to be acquired. Vertebrae: Straightening of the cervical spine with loss of normal lordosis. Alignment is maintained with preservation of vertebral body heights. No abnormal bone marrow signal. No acute fracture. Spinal cord: Unremarkable. No gross abnormal spinal cord signal. No gross spinal canal stenosis. Soft tissues: Soft tissue edema within the posterior soft tissues extending from the C3 through C5 level centered at the C3 spinous process. IMPRESSION: 1. Soft tissue edema within the posterior soft tissues extending from the C3 through C5 level centered at the C3 spinous process. 2. Limited study. Only sagittal noncontrast images were able to be acquired which are motion degraded. No axial images were able to be acquired. Electronically signed by: Cj Crawford M.D. 02/11/23 22:22 PM Venous Doppler Study 02/12/23 00:27 Exam(s): US VENOUS BILATERAL LOWER EXTREMITIES EXAM: US Duplex Bilateral Lower Extremities Veins CLINICAL HISTORY: Reason for exam: b/l edema and right leg erythema . DVT?. TECHNIQUE: Real-time duplex ultrasound scan of the bilateral lower extremity veins integrating B-mode two-dimensional vascular structure, Doppler spectral analysis, color flow Doppler imaging and compression. COMPARISON: No relevant prior studies available. FINDINGS: Right deep veins: Unremarkable. No DVT in the right common femoral, femoral, proximal deep femoral or popliteal veins. The veins demonstrate normal color flow, are normally compressible, with normal phasic flow and/or augmentation response. Left deep veins: Unremarkable. No DVT in the left common femoral, femoral, proximal deep femoral or popliteal veins. The veins demonstrate normal color flow, are normally compressible, with normal phasic flow and/or augmentation response. Soft tissues: No acute findings. No popliteal cyst. IMPRESSION: No evidence of bilateral lower extremity deep venous thrombosis. Electronically signed by: Cj Crawford M.D. 02/12/23 03:[address] 02/12/23 11:31 CT SCAN OF THE CERVICAL SPINE WITH IV CONTRAST CLINICAL HISTORY: Back pain. Report history spinal infection. Clinical concern for epidural abscess. COMPARISON STUDY: CT angiogram the neck dated 12/25/2021. Limited cervical spine MRI images dated 02/11/2023. TECHNIQUE: CT scan of the cervical spine is performed from the skull base to the upper thoracic spine following the IV administration of 118 cc of Optiray 350. Images are reviewed in the axial, sagittal, and coronal planes. IV contrast was administered without complication. A dose lowering technique was utilized adhering to the principles of ALARA. The examination is degraded by large body habitus, and by streak artifact from the patient's shoulders. CT DOSE: 2244.79 mGy.cm FINDINGS: Skeletal structures: The skeletal structures are well mineralized. There is no evidence of fracture or subluxation involving the cervical spine. There is no bony erosion or periostitis. Vertebral body height and alignment are maintained. There is straightening of the cervical lordosis. Anterior osteophytes are seen throughout. The odontoid process and lateral masses are intact. The atlantoaxial articulation is preserved. The spinous processes appear intact. There is moderate multilevel cervical spondylosis. Uncovertebral and facet arthropathy contribute to neural foraminal narrowing at several levels. Intervertebral discs: There is moderate disc space narrowing at C4-C5, C5-C6, C6-C7, and C7-T1. Central canal: Posterior disc osteophyte complexes at C5-C6 and C6-C7 may contribute to acquired compromise of the central canal. There is no CT evidence of epidural fluid collection. Note that this is not well evaluated. Soft tissues: The prevertebral soft tissues are within normal limits. The carotid arteries and jugular veins are patent bilaterally. Nonspecific edema within the posterior paraspinous soft tissues at C2-C5 was much better assessed on the limited MRI sequences. No fluid collection is identified. Calvarium: The visualized calvarium at the skull base appears intact. Brain parenchyma: Partially visualized brain parenchyma at the skull base is within normal limits. Sinuses and mastoids: The visualized paranasal sinuses are clear. The mastoid air cells are well pneumatized. Lung apices: Clear as visualized. IMPRESSION: 1. Significantly streak artifact degraded examination. 2. There is no CT evidence of epidural fluid collection. Note that this is not well assessed by CT and is not excluded. 3. No acute bony abnormality is seen involving the cervical spine. 4. Edema within the posterior paraspinous soft tissues is again seen at C3-C5. This was much better assessed on the limited MRI sequences from yesterday. There is no fluid collection identified in the paraspinous tissues to suggest abscess. 5. Additional findings as above. ACT 112: Negative or not required by law. Electronically signed by: Kameron Diaz M.D. 02/12/2023 1:[address] 02/12/23 11:[address] WITH CONTRAST CLINICAL HISTORY: Rule out epidural abscess. COMPARISON STUDY: Lumbar spine CT September 10, 2021. Lumbar spine MRI September 28, 2021. TECHNIQUE: Axial images of the lumbar spine were obtained following intravenous injection of 118 cc of Optiray 350 IV. Sagittal and coronal reconstructions were viewed. Automated exposure control was utilized for the study. A dose lowering technique was utilized adhering to the principles of ALARA. FINDINGS: For purposes of numbering on this exam, the L5-S1 disc space is assigned to axial image 160 of 211. Alignment of the lumbar spine is anatomic. This exam is markedly compromised by quantum mottle artifact. No fractures are identified. Severe disc space narrowing at L2-L3 is noted. This is similar to abdominal CT of December 05, 2022. This likely reflects sequela of discitis/osteomyelitis shown on MRI of September 28, 2021. There is moderate multilevel facet arthrosis. There is also moderate multilevel disc space narrowing and ossified ptosis within the lumbar spine. Vacuum disc phenomenon at several levels is noted. Evaluation of the central canal and neural foramen is nearly nondiagnostic. No epidural fluid collection is identified although sensitivity is markedly diminished on this exam. Paravertebral soft tissues are unremarkable. IMPRESSION: 1. Exam significantly compromised by quantum mottle artifact. No lumbar spine fractures identified. 2. Moderate multilevel degenerative disc disease and facet arthrosis within the lumbar spine. 3. Near nondiagnostic evaluation of the epidural space however no fluid collection identified by CT. 4. Severe disc space narrowing at L2-L3 which likely reflects sequela of previous episode of discitis/osteomyelitis shown on MRI of September 28, 2021. ACT 112: Negative or not required by law. Electronically signed by: Perry Zheng M.D. 02/12/2023 1:[address] 02/12/23 11:31 CT thoracic spine w con CLINICAL HISTORY: concern for epidural abscess/discitis TECHNIQUE: Multidetector row helical CT of the thoracic spine was performed without administration of intravenous contrast. Coronal and sagittal reformations were obtained. Automated dose lowering techniques and/or adjustment according to patient size were utilized for this exam. Comparison: None available at the time of this dictation. FINDINGS: Exam is limited by patient body habitus. No acute fractures are identified. Degenerative changes are noted in the visualized spine. Vertebral body alignment is within normal limits. Surrounding soft tissues are unremarkable. IMPRESSION: No acute abnormality and in particular no evidence of epidural abscess, although evaluation is limited by patient body habitus. ACT 112: Negative or not required by law. Electronically signed by: David Mcclain M.D. 02/12/2023 1:[address] 02/13/23 08:54 CT shoulder LT w con CLINICAL HISTORY: Redness and swelling.? septic arthritis TECHNIQUE: Multidetector row helical CT of the left shoulder was performed without intravenous contrast. Coronal and sagittal reformations were obtained. Automated dose lowering techniques and/or adjustment according to patient size were utilized for this examination. CT DOSE: 452.15 mGy.cm Comparison: None available at the time of this dictation. FINDINGS: The osseous structures are without fracture or dislocation. Degenerative changes are seen. No evidence of joint effusion or bony destruction. No joint effusion is seen. Mild soft tissue edema is seen. IMPRESSION: Degenerative changes and mild soft tissue edema without evidence of septic arthritis or abscess. ACT 112: Negative or not required by law. Electronically signed by: David Mcclain M.D. 02/13/2023 11:36 AM
[2023-02-15] MEDS: cefTRIAXone SODIUM 2,000 MG in DEXTROSE 5% 50 ML IV SCH (14:30)
--- NOTE | 2023-02-15 15:02 | Electrocardiogram Report ---
Test Reason : Blood Pressure : / mmHG Vent. Rate : 129 BPM Atrial Rate : 000 BPM P-R Int : 000 ms QRS Dur : 132 ms QT Int : 344 ms P-R-T Axes : 000 254 -48 degrees QTc Int : 503 ms Atrial fibrillation with rapid ventricular response Right bundle branch block T wave abnormality, consider inferior ischemia Abnormal ECG When compared with ECG of 01-DEC-2022 05:43, Vent. rate has increased BY 46 BPM Questionable change in QRS axis Inverted T waves have replaced nonspecific T wave abnormality in Inferior leads Confirmed by Norm Kevin ([id number]) on 02/15/2023 3:02:29 PM Referred By: Confirmed By:Nomr Kevin
[2023-02-15] MEDS: DIGOXIN 0.125 MG/2.5 ML UDP PO SCH (17:38)
[2023-02-15] MEDS: RIVAROXABAN 20 MG TAB PO SCH (17:38)
[2023-02-15] MEDS: FERROUS SULFATE 325 MG TAB PO SCH (20:40)
[2023-02-15] MEDS: CYCLOBENZAPRINE HCL 10 MG TAB PO PRN (22:43)
[2023-02-16 06:25] LABS: Basophils # (auto) 0.07 K/uL (0.00-0.20); Basophils % (auto) 0.6 %; Eosinophils # (auto) 0.19 K/uL (0.00-0.50); Eosinophils % (auto) 1.6 %; Hematocrit (blood only) 43.8 % (42.0-52.0); Hemoglobin 14.8 g/dl (14.0-18.0); Immature Granulocytes # (auto) 0.28 K/uL (0.01-0.20); Immature Granulocytes % (auto) 2.3 %; Lymphocytes # (auto) 2.46 K/uL (1.20-3.40); Lymphocytes % (auto) 20.1 %; Mean Corpuscular Hemoglobin 29.5 pg (25.0-34.0); Mean Corpuscular Hgb Conc 33.8 g/dL (32.0-36.0); Mean Corpuscular Volume 87.3 fL (80.0-100.0); Mean Platelet Volume 8.9 fL (9.4-12.4); Monocytes # (auto) 1.14 K/uL (0.11-0.59); Monocytes % (auto) 9.3 %; Neutrophils # (auto) 8.11 K/uL (1.40-6.50); Neutrophils % (auto) 66.1 %; Platelet Count 286 K/uL (130-400); RDW Standard Deviation 54.3 fL (36.4-46.3); Red Blood Count 5.02 M/uL (4.70-6.10); White Blood Count 12.25 K/ul (4.8-10.8)
[2023-02-16 07:49] LABS: BUN Creatinine Ratio 17.8 (10-20); Calcium 8.7 mg/dl (8.6-10.3); Est GFR (African American) 115.2 ml/min; Est GFR (Non-African American) 99.4 ml/min; Potassium 4.7 mmol/L (3.5-5.1)
[2023-02-16] MEDS: GABAPENTIN 300 MG CAP PO SCH ×2 (08:37→21:14)
[2023-02-16] MEDS: SPIRONOLACTONE 25 MG TAB PO SCH (08:37)
[2023-02-16] MEDS: METOPROLOL SUCC 50MG EXT REL TAB PO SCH ×2 (08:37→21:13)
[2023-02-16] MEDS: POTASSIUM CHLORIDE CRTAB 20 MEQ TABCR PO SCH (08:37)
[2023-02-16] MEDS: MAGNESIUM OXIDE 400 MG TAB PO SCH ×2 (08:37→21:14)
[2023-02-16] MEDS: FLUoxetine HCL 10 MG CAP PO SCH (08:38)
[2023-02-16] MEDS: oxyCODONE HCL IR 5 MG TAB (IMMEDIATE RELEASE) PO PRN ×2 (08:40→21:14)
[2023-02-16] MEDS: TORSEMIDE 10 MG TAB PO SCH (10:35)
--- NOTE | 2023-02-16 11:17 | Cardiology Progress Note ---
Date of Service February 16, 2023 Assessment & Plan (1) Permanent atrial fibrillation with rapid ventricular response: (2) Chronic heart failure with preserved ejection fraction (HFpEF): (3) Right heart failure: (4) Back pain: (5) Bacteremia: Plan IMPRESSION: 62 year old male with chronic HFpEF/RHF and permanent atrial fibrillation. Presented due to neck/shoulder pain which started on Wednesday after cleaning at work. Describes left greater than right arm pain. Had preceding day of mild flulike symptoms the day before. Noticed elevated HR over the last month accompanied by palpitations and chest tightness at home. PLAN: Permanent atrial fibrillation-- ventricular rates uncontrolled, ? med compliance at home. Pain likely contributing to patient's elevated rates. Continue metoprolol succinate 100 mg BID, oral digoxin 0.125 mg daily. Continue Xarelto 20 mg daily for stroke prevention Replace potassium to a goal of 4.0 and mag of 2.0. HFpEF/RHF-- Patient not examining significantly volume overloaded. Furosemide 40 mg IV stared on 02/13/23. 02/16/23, will transition back to home torsemide. Holden catheter remains in place. Group B beta strep on 07/16 blood cultures , on admission. Repeat cultures on from 02/13 drawn on antibiotic therapy negative thus far. Echocardiogram with preserved left ventricular ejection fraction, moderate posteriorly directed mitral regurgitation, unchanged compared to previous echo. No evidence of vegetation within the scope of limitation of the transthoracic study. Discitis certainly a concern clinically given presenting symptoms however imaging technically limited. Spine and ortho input noted and appreciated. CT of left shoulder not suggestive of septic joint. Continue empiric antibiotics. Continue Xarelto for stroke prophylaxis, DVT prophylaxis. Admission and Anticipated Discharge Date Admission Date: February 11, 2023 Subjective Patient seen in follow up. No cardiac complaints. Left arm/ shoulder discomfort persisted. No fever. Telemetry reveals AF with rates in the 80s to 90s, improved over the last 48 hrs. Physical Exam Constitutional: + morbidly obese Eyes: PERRL, conjunctivae normal, anicteric sclerae Cardiovascular: Rate/Rhythm: + tachycardic and + irregularly irregular Heart Sounds: + murmur (1/6 systolic murmur) Extremities: + edema (2+ bilateral lower extremity edema) Gastrointestinal (Abdomen): normal bowel sounds, soft, nontender, no hepatosplenomegaly Neurologic: PERRL, EOMI, accommodation nl, no face palsy, no dysarthria Results & Data Vital Signs (Past 12 Hours) Vital Signs Temp Pulse Resp BP Pulse Ox O2 Del Method 02/16/23 07:34 36.3 C L 86 19 123/82 94 Room Air 02/16/23 03:39 36.4 C L 84 23 112/74 92 Room Air 02/15/23 23:51 36.5 C 86 19 113/78 91 Room Air Laboratory Results CBC 02/16/23 Range/Units 05:53 WBC 12.25 H (4.8-10.8) K/ul RBC 5.02 (4.70-6.10) M/uL Hgb 14.8 (14.0-18.0) g/dl Hct 43.8 (42.0-52.0) % Plt Count 286 (130-400) K/uL Neut # (Auto) 8.11 H (1.40-6.50) K/uL Lymph # (Auto) 2.46 (1.20-3.40) K/uL [place] # (Auto) 1.14 H (0.11-0.59) K/uL Eos # (Auto) 0.19 (0.00-0.50) K/uL Baso # (Auto) 0.07 (0.00-0.20) K/uL Comprehensive Metabolic Panel 02/16/23 Range/Units 05:53 Sodium 138 (136-145) mmol/L Potassium 4.7 D (3.5-5.1) mmol/L Chloride 97 L (98-107) mmol/L Carbon Dioxide 36 H (21-32) mmol/L BUN 13 (6-23) mg/dl Creatinine 0.73 (0.6-1.4) mg/dl Glucose 83 (70-99(Fasting)) mg/dl Calcium 8.7 (8.6-10.3) mg/dl Intake and Output 02/15/23 02/16/23 02/16/23 22:59 06:59 14:59 Intake Total 570 / 570 Output Total 2100 / 3900 1800 / 3900 Balance -1530 / -3330 -1800 / -3330 Intake: IV 70 / 70 cefTRIAXone SODIUM 2,000 mg In 70 / 70 Dextrose 5% 50 ml @ 140 mls/hr IV Q24H [facility] Rx#:[id number] Oral 500 / 500 Output: Urine Amount (Catheter) 2099 / 3900 1800 / 3900 Holden/Indwelling 2099 / 3900 1800 / 3900 Other: Weight 185.2 kg Weight Measurement Method Built in [facility]
--- NOTE | 2023-02-16 12:05 | Hospitalist Progress Note ---
Date of Service February 16, 2023 Assessment & Plan (1) Back pain: Plan: 62-year-old male with past medical significant for hypothyroidism, atrial fibrillation, hypertension, morbid obesity, s/p gastric bypass, CHF, obstructive sleep apnea could not tolerate CPAP currently uses oxygen on most nights as per patient, GERD, history of CAD, history of osteomyelitis and discitis at L2-L3 in 2021 and epidural abscess requiring 1 month stay in [facility] and and rehab comes with neck pain radiating to shoulders and back since last Wednesday. Group B beta strep bacteremia Hx of discitis and epidural abscess in 2021 left Shoulder cellulitis Presents to the hospital with shoulder pain and generalized weakness since last 6 days Afebrile, normotensive. In atrial fibrillation blood culture on admission positive for group B beta strep. Cervical, thoracic and lumbar CT chest no acute abnormality/no evidence of epidural abscess. MRI was not able to be done due to difficulty lying down. ESR minimally elevated to 24 CT of the left shoulder did not show any concerns of septic arthritis. Mild soft tissue edema present. Echocardiogram shows EF of 60 to 65%; no vegetation reported. Similar echo compared to his echocardiogram from November 2022 Continue on ceftriaxone. Repeat blood culture negative so far. The likely source of bacteremia is episode of cellulitis. Appreciate infectious disease recommendation regarding duration of antibiotic/further work-up. A-fib with RVR On presentation; presented with A-fib with RVR. On metoprolol succinate and Xarelto. Metoprolol dose increased to 100 mg twice daily. Also digoxin added. Last admission diltiazem was stopped because of pause and bradycardia Cardiology on board; metoprolol dose has been increased. Acute on chronic CHFpEF Reduced right ventricular function Diuresed with IV diuretics DVT ruled out by venous duplex. Strict input and output. Daily weights. Diuretics changed back to home dose. Obstructive sleep apnea Could not tolerate CPAP as per patient Uses oxygen 2 to 3 L on most nights as per patient History of CAD On beta-stef and Xarelto Morbid obesity needs counseling DVT prophylaxis Xarelto Disposition telemetry floor Full code dispoPT OT evaluated the patient; not safe to return home at current level. Recommend inpatient rehab for safety. Patient open to rehab. Await IDs recommendation. Case management on board. Time spent evaluating patient, direct bedside care, chart review, placing orders, interpretation of diagnostic studies, discussion with consultants, patient, and family members, as well as other required patient management activities is 60 minutes. Please note the above document was generated using voice recognition software. It may contain grammatical, syntax or spelling errors. Any formal questions or concerns about the content, text or information contained within the body of this dictation should be directly addressed to the provider for clarification (2) Atrial fibrillation with rapid ventricular response: Admission and Anticipated Discharge Date Admission Date: February 11, 2023 Subjective Patient seen and examined at bedside. He reports that his shoulder pain has improved. Reports pain in his left knee as well. Review of Systems Review of Systems: All systems reviewed & are unremarkable except as noted in Subjective Physical Exam Physical Exam: Constitutional: Alert orient x3; not in distress. Morbidly obese. Respiratory: Bilateral vesicular breath sound. Cardiovascular: Irregular, no murmur, no edema Vessels: no JVD or carotid bruit Chest: normal inspection of chest Abdomen: normal bowel sounds, soft, nontender, no hepatosplenomegaly Musculoskeletal: no cyanosis or clubbing, extremities motor strength 5/5. 2+ pitting edema present. Left shoulder has overlying erythema; improvement noted compared to previous days . Range of motion slightly improved. Left knee slightly more swollen than right. No overlying erythema or tenderness. Skin: no rashes, warm and dry normal turgor Neurologic: PERRL, EOMI, accommodation nl, no face palsy, no dysarthria CN's II- XI intact bilaterally and moves all extremities Psychiatric: A+Ox3, euthymic affect Results & Data Results & Data Vital Signs (Past 12 Hours) Vital Signs Temp Pulse Resp BP Pulse Ox O2 Del Method 02/16/23 11:33 36.5 C 80 20 116/79 95 Room Air 02/16/23 07:34 36.3 C L 86 19 123/82 94 Room Air 02/16/23 03:39 36.4 C L 84 23 112/74 92 Room Air Laboratory Results Laboratory Results WBC 12.25 K/ul (4.8-10.8) H 02/16/23 05:53 RBC 5.02 M/uL (4.70-6.10) 02/16/23 05:53 Hgb 14.8 g/dl (14.0-18.0) 02/16/23 05:53 Hct 43.8 % (42.0-52.0) 02/16/23 05:53 MCV 87.3 fL (80.0-100.0) 02/16/23 05:53 MCH 29.5 pg (25.0-34.0) 02/16/23 05:53 MCHC 33.8 g/dL (32.0-36.0) 02/16/23 05:53 RDW Std Deviation 54.3 fL (36.4-46.3) H 02/16/23 05:53 RDW Coeff of Phu 17.0 % (11.5-14.5) H 02/16/23 05:53 Plt Count 286 K/uL (130-400) 02/16/23 05:53 MPV 8.9 fL (9.4-12.4) L 02/16/23 05:53 Immature Gran % (Auto) 2.3 % 02/16/23 05:53 Neut % (Auto) 66.1 % 02/16/23 05:53 Lymph % (Auto) 20.1 % 02/16/23 05:53 [place] % (Auto) 9.3 % 02/16/23 05:53 Eos % (Auto) 1.6 % 02/16/23 05:53 Baso % (Auto) 0.6 % 02/16/23 05:53 Neut # (Auto) 8.11 K/uL (1.40-6.50) H 02/16/23 05:53 Lymph # (Auto) 2.46 K/uL (1.20-3.40) 02/16/23 05:53 [place] # (Auto) 1.14 K/uL (0.11-0.59) H 02/16/23 05:53 Eos # (Auto) 0.19 K/uL (0.00-0.50) 02/16/23 05:53 Baso # (Auto) 0.07 K/uL (0.00-0.20) 02/16/23 05:53 Immature Gran # (Auto) 0.28 K/uL (0.01-0.20) H 02/16/23 05:53 ESR 24 mm/hr (0-20) H 02/12/23 11:31 PT 13.5 Seconds (9.0-12.0) H 02/11/23 14:35 INR 1.2 (0.9-1.1) H 02/11/23 14:35 APTT 39.0 Seconds (21.0-31.0) H 02/11/23 14:35 PTT Ratio 1.4 02/11/23 14:35 Sodium 138 mmol/L (136-145) 02/16/23 05:53 Potassium 4.7 mmol/L (3.5-5.1) D 02/16/23 05:53 Chloride 97 mmol/L (98-107) L 02/16/23 05:53 Carbon Dioxide 36 mmol/L (21-32) H 02/16/23 05:53 Anion Gap 5 (3-11) 02/16/23 05:53 BUN 13 mg/dl (6-23) 02/16/23 05:53 Creatinine 0.73 mg/dl (0.6-1.4) 02/16/23 05:53 Est Cr Clr Drug Dosing 177.0 ml/min 02/16/23 05:53 Est GFR ( Amer) 115.2 ml/min 02/16/23 05:53 Est GFR (Non-Af Amer) 99.4 ml/min 02/16/23 05:53 BUN/Creatinine Ratio 17.8 (10-20) 02/16/23 05:53 Glucose 83 mg/dl (70-99(Fasting)) 02/16/23 05:53 Calcium 8.7 mg/dl (8.6-10.3) 02/16/23 05:53 Magnesium 1.9 mg/dl (1.7-2.4) 02/13/23 05:49 Total Bilirubin 1.1 mg/dl (0.2-1.0) H 02/13/23 05:49 AST 16 U/L (13-39) 02/13/23 05:49 ALT 22 U/L (7-52) 02/13/23 05:49 Alkaline Phosphatase 107 U/L (34-104) H 02/13/23 05:49 Troponin I High Sens 9.5 pg/ml (0-20) 02/12/23 Unknown C-Reactive Protein 27.01 mg/dl (0-0.5) H 02/12/23 Unknown Total Protein 6.2 gm/dl (6.0-8.3) 02/13/23 05:49 Albumin 3.4 gm/dl (3.4-5.0) 02/13/23 05:49 Globulin 2.8 gm/dl (2.5-4.0) 02/13/23 05:49 Albumin/Globulin Ratio 1.2 (0.9-2) 02/13/23 05:49 Urine Color Yellow 02/11/23 16:59 Urine Appearance Clear (Clear) 02/11/23 16:59 Urine pH 5.5 (4.5-7.5) 02/11/23 16:59 Ur Specific [place] 1.015 (1.000-1.030) 02/11/23 16:59 Urine Protein 1+ (Negative) H 02/11/23 16:59 Urine Glucose (UA) Negative (Negative) 02/11/23 16:59 Urine Ketones Trace (Negative) H 02/11/23 16:59 Urine Blood Negative (Negative) 02/11/23 16:59 Urine Nitrite Negative (Negative) 02/11/23 16:59 Urine Bilirubin Negative (Negative) 02/11/23 16:59 Urine Urobilinogen Negative (Negative) 02/11/23 16:59 Ur Leukocyte Esterase Negative (Negative) 02/11/23 16:59 Urine WBC (Auto) 1-5 /hpf (0-5) 02/11/23 16:59 Urine RBC (Auto) 0-4 /hpf (0-4) 02/11/23 16:59 U Hyaline Cast (Auto) 1-5 /lpf (0-5) 02/11/23 16:59 U Epithel Cells (Auto) 10-20 /lpf (0-5) H 02/11/23 16:59 Urine Bacteria (Auto) Negative (Negative) 02/11/23 16:59 Streptococcus sp PCR DETECTED (NotDetected) A 02/11/23 17:23 Strep agalactiae (PCR) DETECTED (NotDetected) A 02/11/23 17:23 Bld Cult ID Panel PCR See PCR Comment (NotDetected) 02/11/23 17:23 Impressions Chest X-Ray 02/11/23 15:23 XR chest 1V not portable CLINICAL HISTORY: Chest pain, nonspecific TECHNIQUE: Single frontal radiograph of the chest was obtained. Comparison: Comparison is made to chest radiograph 11/30/2022 FINDINGS: Exam is limited by underpenetration. Cardiomegaly is noted. The lungs are clear. No evidence of pleural effusion or pneumothorax. IMPRESSION: No acute chest disease. ACT 112: Negative or not required by law. Electronically signed by: David Mcclain M.D. 02/11/2023 3:36 PM Cervical Spine MRI 02/11/23 16:48 Exam(s): MRI C SPINE EXAM: MR Cervical Spine Without Intravenous Contrast CLINICAL HISTORY: Reason for exam: ? infection with back pain and a recent previous b. TECHNIQUE: Magnetic resonance images of the cervical spine without intravenous contrast in multiple planes. COMPARISON: No relevant prior studies available. FINDINGS: Limitations: Limited study. Only sagittal noncontrast images were able to be acquired which are motion degraded. No axial images were able to be acquired. Vertebrae: Straightening of the cervical spine with loss of normal lordosis. Alignment is maintained with preservation of vertebral body heights. No abnormal bone marrow signal. No acute fracture. Spinal cord: Unremarkable. No gross abnormal spinal cord signal. No gross spinal canal stenosis. Soft tissues: Soft tissue edema within the posterior soft tissues extending from the C3 through C5 level centered at the C3 spinous process. IMPRESSION: 1. Soft tissue edema within the posterior soft tissues extending from the C3 through C5 level centered at the C3 spinous process. 2. Limited study. Only sagittal noncontrast images were able to be acquired which are motion degraded. No axial images were able to be acquired. Electronically signed by: Cj Crawford M.D. 02/11/23 22:22 PM Venous Doppler Study 02/12/23 00:27 Exam(s): US VENOUS BILATERAL LOWER EXTREMITIES EXAM: US Duplex Bilateral Lower Extremities Veins CLINICAL HISTORY: Reason for exam: b/l edema and right leg erythema . DVT?. TECHNIQUE: Real-time duplex ultrasound scan of the bilateral lower extremity veins integrating B-mode two-dimensional vascular structure, Doppler spectral analysis, color flow Doppler imaging and compression. COMPARISON: No relevant prior studies available. FINDINGS: Right deep veins: Unremarkable. No DVT in the right common femoral, femoral, proximal deep femoral or popliteal veins. The veins demonstrate normal color flow, are normally compressible, with normal phasic flow and/or augmentation response. Left deep veins: Unremarkable. No DVT in the left common femoral, femoral, proximal deep femoral or popliteal veins. The veins demonstrate normal color flow, are normally compressible, with normal phasic flow and/or augmentation response. Soft tissues: No acute findings. No popliteal cyst. IMPRESSION: No evidence of bilateral lower extremity deep venous thrombosis. Electronically signed by: Cj Crawford M.D. 02/12/23 03:[address] 02/12/23 11:31 CT SCAN OF THE CERVICAL SPINE WITH IV CONTRAST CLINICAL HISTORY: Back pain. Report history spinal infection. Clinical concern for epidural abscess. COMPARISON STUDY: CT angiogram the neck dated 12/25/2021. Limited cervical spine MRI images dated 02/11/2023. TECHNIQUE: CT scan of the cervical spine is performed from the skull base to the upper thoracic spine following the IV administration of 118 cc of Optiray 350. Images are reviewed in the axial, sagittal, and coronal planes. IV contrast was administered without complication. A dose lowering technique was utilized adhering to the principles of ALARA. The examination is degraded by large body habitus, and by streak artifact from the patient's shoulders. CT DOSE: 2244.79 mGy.cm FINDINGS: Skeletal structures: The skeletal structures are well mineralized. There is no evidence of fracture or subluxation involving the cervical spine. There is no bony erosion or periostitis. Vertebral body height and alignment are maintained. There is straightening of the cervical lordosis. Anterior osteophytes are seen throughout. The odontoid process and lateral masses are intact. The atlantoaxial articulation is preserved. The spinous processes appear intact. There is moderate multilevel cervical spondylosis. Uncovertebral and facet arthropathy contribute to neural foraminal narrowing at several levels. Intervertebral discs: There is moderate disc space narrowing at C4-C5, C5-C6, C6-C7, and C7-T1. Central canal: Posterior disc osteophyte complexes at C5-C6 and C6-C7 may contribute to acquired compromise of the central canal. There is no CT evidence of epidural fluid collection. Note that this is not well evaluated. Soft tissues: The prevertebral soft tissues are within normal limits. The carotid arteries and jugular veins are patent bilaterally. Nonspecific edema within the posterior paraspinous soft tissues at C2-C5 was much better assessed on the limited MRI sequences. No fluid collection is identified. Calvarium: The visualized calvarium at the skull base appears intact. Brain parenchyma: Partially visualized brain parenchyma at the skull base is within normal limits. Sinuses and mastoids: The visualized paranasal sinuses are clear. The mastoid air cells are well pneumatized. Lung apices: Clear as visualized. IMPRESSION: 1. Significantly streak artifact degraded examination. 2. There is no CT evidence of epidural fluid collection. Note that this is not well assessed by CT and is not excluded. 3. No acute bony abnormality is seen involving the cervical spine. 4. Edema within the posterior paraspinous soft tissues is again seen at C3-C5. This was much better assessed on the limited MRI sequences from yesterday. There is no fluid collection identified in the paraspinous tissues to suggest abscess. 5. Additional findings as above. ACT 112: Negative or not required by law. Electronically signed by: Kameron Diaz M.D. 02/12/2023 1:[address] 02/12/23 11:[address] WITH CONTRAST CLINICAL HISTORY: Rule out epidural abscess. COMPARISON STUDY: Lumbar spine CT September 10, 2021. Lumbar spine MRI September 28, 2021. TECHNIQUE: Axial images of the lumbar spine were obtained following intravenous injection of 118 cc of Optiray 350 IV. Sagittal and coronal reconstructions were viewed. Automated exposure control was utilized for the study. A dose lowering technique was utilized adhering to the principles of ALARA. FINDINGS: For purposes of numbering on this exam, the L5-S1 disc space is assigned to axial image 160 of 211. Alignment of the lumbar spine is anatomic. This exam is markedly compromised by quantum mottle artifact. No fractures are identified. Severe disc space narrowing at L2-L3 is noted. This is similar to abdominal CT of December 05, 2022. This likely reflects sequela of discitis/osteomyelitis shown on MRI of September 28, 2021. There is moderate multilevel facet arthrosis. There is also moderate multilevel disc space narrowing and ossified ptosis within the lumbar spine. Vacuum disc phenomenon at several levels is noted. Evaluation of the central canal and neural foramen is nearly nondiagnostic. No epidural fluid collection is identified although sensitivity is markedly diminished on this exam. Paravertebral soft tissues are unremarkable. IMPRESSION: 1. Exam significantly compromised by quantum mottle artifact. No lumbar spine fractures identified. 2. Moderate multilevel degenerative disc disease and facet arthrosis within the lumbar spine. 3. Near nondiagnostic evaluation of the epidural space however no fluid collection identified by CT. 4. Severe disc space narrowing at L2-L3 which likely reflects sequela of previous episode of discitis/osteomyelitis shown on MRI of September 28, 2021. ACT 112: Negative or not required by law. Electronically signed by: Perry Zheng M.D. 02/12/2023 1:[address] 02/12/23 11:31 CT thoracic spine w con CLINICAL HISTORY: concern for epidural abscess/discitis TECHNIQUE: Multidetector row helical CT of the thoracic spine was performed without administration of intravenous contrast. Coronal and sagittal reformations were obtained. Automated dose lowering techniques and/or adjustment according to patient size were utilized for this exam. Comparison: None available at the time of this dictation. FINDINGS: Exam is limited by patient body habitus. No acute fractures are identified. Degenerative changes are noted in the visualized spine. Vertebral body alignment is within normal limits. Surrounding soft tissues are unremarkable. IMPRESSION: No acute abnormality and in particular no evidence of epidural abscess, although evaluation is limited by patient body habitus. ACT 112: Negative or not required by law. Electronically signed by: David Mcclain M.D. 02/12/2023 1:[address] 02/13/23 08:54 CT shoulder LT w con CLINICAL HISTORY: Redness and swelling.? septic arthritis TECHNIQUE: Multidetector row helical CT of the left shoulder was performed without intravenous contrast. Coronal and sagittal reformations were obtained. Automated dose lowering techniques and/or adjustment according to patient size were utilized for this examination. CT DOSE: 452.15 mGy.cm Comparison: None available at the time of this dictation. FINDINGS: The osseous structures are without fracture or dislocation. Degenerative changes are seen. No evidence of joint effusion or bony destruction. No joint effusion is seen. Mild soft tissue edema is seen. IMPRESSION: Degenerative changes and mild soft tissue edema without evidence of septic arthritis or abscess. ACT 112: Negative or not required by law. Electronically signed by: David Mcclain M.D. 02/13/2023 11:36 AM
[2023-02-16] MEDS: cefTRIAXone SODIUM 2,000 MG in DEXTROSE 5% 50 ML IV SCH (12:45)
[2023-02-16] MEDS: ACETAMINOPHEN 325 MG TAB PO PRN (14:43)
[2023-02-16] MEDS: DIGOXIN 0.125 MG/2.5 ML UDP PO SCH (16:23)
[2023-02-16] MEDS: RIVAROXABAN 20 MG TAB PO SCH (16:23)
[2023-02-16] MEDS ORDERED: NYSTATIN CR 15 GM TUBE EXT SCH (18:30)
[2023-02-16] MEDS ORDERED: Nursing to Pharmacy Communication SCH (19:00)
[2023-02-16] MEDS ORDERED: NYSTATIN POWDER 15GM BTL EXT PRN (19:00)
[2023-02-16] MEDS: traZODone HCL 50 MG TAB PO PRN (21:14)
[2023-02-16] MEDS: DICLOFENAC SOD 1% GEL 100 GM TUBE EXT PRN (21:14)
[2023-02-16] MEDS: FERROUS SULFATE 325 MG TAB PO SCH (21:14)
[2023-02-16] MEDS: HYDROmorphone INJ 0.5 MG/0.5 ML SYR IV PRN (22:55)
[2023-02-17 06:46] LABS: Basophils # (auto) 0.08 K/uL (0.00-0.20); Basophils % (auto) 0.7 %; Eosinophils # (auto) 0.23 K/uL (0.00-0.50); Eosinophils % (auto) 1.9 %; Hematocrit (blood only) 44.1 % (42.0-52.0); Hemoglobin 15.1 g/dl (14.0-18.0); Immature Granulocytes # (auto) 0.24 K/uL (0.01-0.20); Lymphocytes # (auto) 2.23 K/uL (1.20-3.40); Lymphocytes % (auto) 18.8 %; Mean Corpuscular Hemoglobin 29.5 pg (25.0-34.0); Mean Corpuscular Hgb Conc 34.2 g/dL (32.0-36.0); Mean Corpuscular Volume 86.3 fL (80.0-100.0); Mean Platelet Volume 8.8 fL (9.4-12.4); Monocytes # (auto) 0.86 K/uL (0.11-0.59); Monocytes % (auto) 7.2 %; Neutrophils # (auto) 8.25 K/uL (1.40-6.50); Neutrophils % (auto) 69.4 %; Platelet Count 286 K/uL (130-400); RDW Coefficient of Variation 16.7 % (11.5-14.5); RDW Standard Deviation 53.1 fL (36.4-46.3); Red Blood Count 5.11 M/uL (4.70-6.10); White Blood Count 11.89 K/ul (4.8-10.8)
[2023-02-17 07:10] LABS: BUN Creatinine Ratio 17.1 (10-20); Calcium 8.9 mg/dl (8.6-10.3); Creatinine Clr Calc Pharmacy 181.4 ml/min; Est GFR (African American) 117.2 ml/min; Est GFR (Non-African American) 101.1 ml/min; Potassium 4.5 mmol/L (3.5-5.1)
[2023-02-17] MEDS: TORSEMIDE 10 MG TAB PO SCH (09:06)
[2023-02-17] MEDS: SPIRONOLACTONE 25 MG TAB PO SCH (09:06)
[2023-02-17] MEDS: FLUoxetine HCL 10 MG CAP PO SCH (09:06)
[2023-02-17] MEDS: MAGNESIUM OXIDE 400 MG TAB PO SCH ×2 (09:06→20:53)
[2023-02-17] MEDS: METOPROLOL SUCC 50MG EXT REL TAB PO SCH ×2 (09:06→20:54)
[2023-02-17] MEDS: GABAPENTIN 300 MG CAP PO SCH ×2 (09:06→20:53)
[2023-02-17] MEDS: oxyCODONE HCL IR 5 MG TAB (IMMEDIATE RELEASE) PO PRN ×2 (09:09→20:52)
--- NOTE | 2023-02-17 10:42 | Cardiology Progress Note ---
Date of Service February 17, 2023 Assessment & Plan (1) Permanent atrial fibrillation with rapid ventricular response: (2) Chronic heart failure with preserved ejection fraction (HFpEF): (3) Right heart failure: (4) Back pain: (5) Bacteremia: Plan Chronic HFpEF/RHF and permanent atrial fibrillation. Volume status is compensated, on prior to arrival oral diuretic regimen Heart rate controlled with uptitration of metoprolol succinate from 50 mg BID to 100 mg BID plus the addition of digoxin this admission. Continue rate control with metoprolol succinate 100 mg BID and oral digoxin 0.125 mg daily. Continue anticoagulation, Xarelto 20 mg daily, for stroke prevention Maintain normokalemia and normomagnesemia. Continue oral torsemide and spironolactone. Group B beta strep on 2/2 blood cultures from 02/11/2023, 02/13/2023 cultures negative thus far, ID consultation pending. Admission and Anticipated Discharge Date Admission Date: February 11, 2023 Supervising Physician Co-Signing Physician Notes Supervising Physician Attestation: I have personally performed a history and physical examination on the patient. I agree with the physician medical office assistant's findings and plan as documented with the following additions. Subjective: Patient with ongoing discomfort of the left shoulder which remains his most significant subjective complaint. Telemetry reveals rate controlled atrial fibrillation in the 7090 bpm range, certainly much improved compared to presentation when his ventricular rate would get as high as 160 bpm with minimal activity such as eating Patient is afebrile. Exam: Cardiovascular regular rhythm, no murmurs, 1-2+ lower extremity edema, improving : Holden catheter removed Data: 2 of 2 blood cultures drawn 02/11/2023 positive for group G beta strep, repeat cultures performed on antibiotic therapy 02/13/2023 with no growth Assessment and Plan: -Continue metoprolol succinate 100 mg twice daily, digoxin 0.125 mg p.o. daily for rate control -Continue Xarelto 20 mg daily for stroke prophylaxis -With regards to bacteremia. Patient does have underlying moderate mitral regurgitation as a predisposing valvular lesion. The patient's body mass index is 55.4 kg/m, and based on his transthoracic echocardiogram studies, he has not found to have surgical valve disease. Given presentation with left shoulder and back pain as his chief complaint and findings of bacteremia, I would favor a course of 4 to 6 weeks of IV Rocephin for empiric treatment of possible endocarditis discitis or even septic joint despite negative radiographic findings which were noted to be technically limited. -In this particular case, the risk of KIMBERLY is felt to outweigh the benefits given the patient's body habitus and risk of airway compromise. -Case discussed with Dr. Cohen, for the purpose of coordination of care Arsalan Morley, DO Subjective Patient seen and examined. Chart, medications, and telemetry reviewed. No chest pain, palpitations, unusual shortness of breath, cough, orthopnea, PND, or peripheral edema. Telemetry with rate controlled atrial fibrillation with occasional PVC's History of osteomyelitis and discitis at L2-L3 in 2021 and epidural abscess Patient presented to the hospital with neck pain, left greater than right shoulder pain, left should cellulitis, and weakness Blood cultures on 02/11/2023 with Group B Beta Strep. Blood cultures on 02/13/2023, preliminary, are without growth after 48 hours Echocardiogram with preserved left ventricular ejection fraction, moderate posteriorly directed mitral regurgitation, unchanged compared to previous echo. No evidence of vegetation within the scope of TTE Cervical, thoracic and lumbar CT chest without acute abnormality. MRI unable to be performed. Comm[employer] ID Consultation pending Review of Systems Review of Systems: Complete review of systems is as stated above, negative, or noncontributory. Physical Exam Physical Exam: General: A&Ox3. NAD. Elevated BMI. HENT: Normocephalic. Atraumatic. Eyes: PER. Conjunctiva pink, sclera clear. Neck: No carotid bruits. No JVD. Heart: Irregularly irregular, 90 bpm. No murmur appreciated. Lungs: Clear to auscultation. Abdomen: +BS. Soft. Nontender. No masses or organomegaly. Extremities: No clubbing, cyanosis, or significant edema. Limited neurological examination is without focal deficits. Results & Data Vital Signs (Past 12 Hours) Vital Signs Temp Pulse Resp BP BP Pulse Ox O2 Del Method 02/17/23 07:20 37.1 C 70 19 119/80 90 Room Air 02/17/23 03:10 36.5 C 83 18 104/71 92 Room Air 02/16/23 23:18 36.5 C 88 108/72 91 Room Air Laboratory Results CBC 02/17/23 Range/Units 06:00 WBC 11.89 H (4.8-10.8) K/ul RBC 5.11 (4.70-6.10) M/uL Hgb 15.1 (14.0-18.0) g/dl Hct 44.1 (42.0-52.0) % Plt Count 286 (130-400) K/uL Neut # (Auto) 8.25 H (1.40-6.50) K/uL Lymph # (Auto) 2.23 (1.20-3.40) K/uL [place] # (Auto) 0.86 H (0.11-0.59) K/uL Eos # (Auto) 0.23 (0.00-0.50) K/uL Baso # (Auto) 0.08 (0.00-0.20) K/uL Comprehensive Metabolic Panel 02/17/23 Range/Units 06:00 Sodium 135 L (136-145) mmol/L Potassium 4.5 (3.5-5.1) mmol/L Chloride 96 L (98-107) mmol/L Carbon Dioxide 31 (21-32) mmol/L BUN 12 (6-23) mg/dl Creatinine 0.70 (0.6-1.4) mg/dl Glucose 91 (70-99(Fasting)) mg/dl Calcium 8.9 (8.6-10.3) mg/dl Intake and Output 02/16/23 02/17/23 02/17/23 22:59 06:59 14:59 Intake Total 550 / 1800 550 / 1800 Output Total 1250 / 4975 1625 / 4975 1300 / 1300 Balance -700 / -3175 -1075 / -3175 -1300 / -1300 Intake: Oral 550 / 1730 550 / 1730 Output: Urine 250 / 1875 1625 / 1875 1300 / 1300 Urine Amount (Catheter) 1000 / 3100 Holden/Indwelling 1000 / 3100 Other: Weight 180.1 kg Weight Measurement Method Built in [facility]
[2023-02-17] MEDS: cefTRIAXone SODIUM 2,000 MG in DEXTROSE 5% 50 ML IV SCH (11:28)
--- NOTE | 2023-02-17 12:48 | Hospitalist Progress Note ---
Date of Service February 17, 2023 Assessment & Plan (1) Back pain: Plan: 62-year-old male with past medical significant for hypothyroidism, atrial fibrillation, hypertension, morbid obesity, s/p gastric bypass, CHF, obstructive sleep apnea could not tolerate CPAP currently uses oxygen on most nights as per patient, GERD, history of CAD, history of osteomyelitis and discitis at L2-L3 in 2021 and epidural abscess requiring 1 month stay in [facility] and and rehab comes with neck pain radiating to shoulders and back since last Wednesday. Group B beta strep bacteremia Hx of discitis and epidural abscess in 2021 left Shoulder cellulitis Presents to the hospital with shoulder pain and generalized weakness since last 6 days Afebrile, normotensive. In atrial fibrillation blood culture on admission positive for group B beta strep. Cervical, thoracic and lumbar CT chest no acute abnormality/no evidence of epidural abscess. MRI was not able to be done due to difficulty lying down. ESR minimally elevated to 24 CT of the left shoulder did not show any concerns of septic arthritis. Mild soft tissue edema present. Echocardiogram shows EF of 60 to 65%; no vegetation reported. Similar echo compared to his echocardiogram from November 2022 Continue on ceftriaxone. Repeat blood culture negative so far. The likely source of bacteremia is episode of cellulitis. Appreciate infectious disease recommendation regarding duration of antibiotic/further work-up. A-fib with RVR On presentation; presented with A-fib with RVR. On metoprolol succinate and Xarelto. Metoprolol dose increased to 100 mg twice daily. Also digoxin added. Last admission diltiazem was stopped because of pause and bradycardia Cardiology on board; metoprolol dose has been increased. Acute on chronic CHFpEF Reduced right ventricular function Diuresed with IV diuretics DVT ruled out by venous duplex. Strict input and output. Daily weights. Diuretics changed back to home dose. Obstructive sleep apnea Could not tolerate CPAP as per patient Uses oxygen 2 to 3 L on most nights as per patient History of CAD On beta-stef and Xarelto Morbid obesity needs counseling DVT prophylaxis Xarelto Disposition telemetry floor Full code dispoPT OT evaluated the patient; not safe to return home at current level. Recommend inpatient rehab for safety. Patient open to rehab. Await IDs recommendation. Case management on board. Time spent evaluating patient, direct bedside care, chart review, placing orders, interpretation of diagnostic studies, discussion with consultants, patient, and family members, as well as other required patient management activities is 60 minutes. Please note the above document was generated using voice recognition software. It may contain grammatical, syntax or spelling errors. Any formal questions or concerns about the content, text or information contained within the body of this dictation should be directly addressed to the provider for clarification (2) Atrial fibrillation with rapid ventricular response: Admission and Anticipated Discharge Date Admission Date: February 11, 2023 Subjective Patient seen and examined at bedside. He is lying on the bed comfortably; not in any distress. No overnight events. Reports that his shoulder is feeling better. Review of Systems Review of Systems: All systems reviewed & are unremarkable except as noted in Subjective Physical Exam Physical Exam: Constitutional: Alert orient x3; not in distress. Morbidly obese. Respiratory: Bilateral vesicular breath sound. Cardiovascular: Irregular, no murmur, no edema Vessels: no JVD or carotid bruit Chest: normal inspection of chest Abdomen: normal bowel sounds, soft, nontender, no hepatosplenomegaly Musculoskeletal: no cyanosis or clubbing, extremities motor strength 5/5. 2+ pitting edema present. Left shoulder has overlying erythema; improvement noted compared to previous days . Range of motion improved. Left knee slightly more swollen than right. No overlying erythema or tenderness. Skin: no rashes, warm and dry normal turgor Neurologic: PERRL, EOMI, accommodation nl, no face palsy, no dysarthria CN's II- XI intact bilaterally and moves all extremities Psychiatric: A+Ox3, euthymic affect Results & Data Results & Data Vital Signs (Past 12 Hours) Vital Signs Temp Pulse Resp BP BP Pulse Ox O2 Del Method 02/17/23 11:39 36.6 C 95 H 19 106/72 92 Room Air 02/17/23 07:20 37.1 C 70 19 119/80 90 Room Air 02/17/23 03:10 36.5 C 83 18 104/71 92 Room Air Laboratory Results Laboratory Results WBC 11.89 K/ul (4.8-10.8) H 02/17/23 06:00 RBC 5.11 M/uL (4.70-6.10) 02/17/23 06:00 Hgb 15.1 g/dl (14.0-18.0) 02/17/23 06:00 Hct 44.1 % (42.0-52.0) 02/17/23 06:00 MCV 86.3 fL (80.0-100.0) 02/17/23 06:00 MCH 29.5 pg (25.0-34.0) 02/17/23 06:00 MCHC 34.2 g/dL (32.0-36.0) 02/17/23 06:00 RDW Std Deviation 53.1 fL (36.4-46.3) H 02/17/23 06:00 RDW Coeff of Phu 16.7 % (11.5-14.5) H 02/17/23 06:00 Plt Count 286 K/uL (130-400) 02/17/23 06:00 MPV 8.8 fL (9.4-12.4) L 02/17/23 06:00 Immature Gran % (Auto) 2.0 % 02/17/23 06:00 Neut % (Auto) 69.4 % 02/17/23 06:00 Lymph % (Auto) 18.8 % 02/17/23 06:00 [place] % (Auto) 7.2 % 02/17/23 06:00 Eos % (Auto) 1.9 % 02/17/23 06:00 Baso % (Auto) 0.7 % 02/17/23 06:00 Neut # (Auto) 8.25 K/uL (1.40-6.50) H 02/17/23 06:00 Lymph # (Auto) 2.23 K/uL (1.20-3.40) 02/17/23 06:00 [place] # (Auto) 0.86 K/uL (0.11-0.59) H 02/17/23 06:00 Eos # (Auto) 0.23 K/uL (0.00-0.50) 02/17/23 06:00 Baso # (Auto) 0.08 K/uL (0.00-0.20) 02/17/23 06:00 Immature Gran # (Auto) 0.24 K/uL (0.01-0.20) H 02/17/23 06:00 ESR 24 mm/hr (0-20) H 02/12/23 11:31 PT 13.5 Seconds (9.0-12.0) H 02/11/23 14:35 INR 1.2 (0.9-1.1) H 02/11/23 14:35 APTT 39.0 Seconds (21.0-31.0) H 02/11/23 14:35 PTT Ratio 1.4 02/11/23 14:35 Sodium 135 mmol/L (136-145) L 02/17/23 06:00 Potassium 4.5 mmol/L (3.5-5.1) 02/17/23 06:00 Chloride 96 mmol/L (98-107) L 02/17/23 06:00 Carbon Dioxide 31 mmol/L (21-32) 02/17/23 06:00 Anion Gap 8 (3-11) 02/17/23 06:00 BUN 12 mg/dl (6-23) 02/17/23 06:00 Creatinine 0.70 mg/dl (0.6-1.4) 02/17/23 06:00 Est Cr Clr Drug Dosing 181.4 ml/min 02/17/23 06:00 Est GFR ( Amer) 117.2 ml/min 02/17/23 06:00 Est GFR (Non-Af Amer) 101.1 ml/min 02/17/23 06:00 BUN/Creatinine Ratio 17.1 (10-20) 02/17/23 06:00 Glucose 91 mg/dl (70-99(Fasting)) 02/17/23 06:00 Calcium 8.9 mg/dl (8.6-10.3) 02/17/23 06:00 Magnesium 1.9 mg/dl (1.7-2.4) 02/13/23 05:49 Total Bilirubin 1.1 mg/dl (0.2-1.0) H 02/13/23 05:49 AST 16 U/L (13-39) 02/13/23 05:49 ALT 22 U/L (7-52) 02/13/23 05:49 Alkaline Phosphatase 107 U/L (34-104) H 02/13/23 05:49 Troponin I High Sens 9.5 pg/ml (0-20) 02/12/23 Unknown C-Reactive Protein 27.01 mg/dl (0-0.5) H 02/12/23 Unknown Total Protein 6.2 gm/dl (6.0-8.3) 02/13/23 05:49 Albumin 3.4 gm/dl (3.4-5.0) 02/13/23 05:49 Globulin 2.8 gm/dl (2.5-4.0) 02/13/23 05:49 Albumin/Globulin Ratio 1.2 (0.9-2) 02/13/23 05:49 Urine Color Yellow 02/11/23 16:59 Urine Appearance Clear (Clear) 02/11/23 16:59 Urine pH 5.5 (4.5-7.5) 02/11/23 16:59 Ur Specific [place] 1.015 (1.000-1.030) 02/11/23 16:59 Urine Protein 1+ (Negative) H 02/11/23 16:59 Urine Glucose (UA) Negative (Negative) 02/11/23 16:59 Urine Ketones Trace (Negative) H 02/11/23 16:59 Urine Blood Negative (Negative) 02/11/23 16:59 Urine Nitrite Negative (Negative) 02/11/23 16:59 Urine Bilirubin Negative (Negative) 02/11/23 16:59 Urine Urobilinogen Negative (Negative) 02/11/23 16:59 Ur Leukocyte Esterase Negative (Negative) 02/11/23 16:59 Urine WBC (Auto) 1-5 /hpf (0-5) 02/11/23 16:59 Urine RBC (Auto) 0-4 /hpf (0-4) 02/11/23 16:59 U Hyaline Cast (Auto) 1-5 /lpf (0-5) 02/11/23 16:59 U Epithel Cells (Auto) 10-20 /lpf (0-5) H 02/11/23 16:59 Urine Bacteria (Auto) Negative (Negative) 02/11/23 16:59 Streptococcus sp PCR DETECTED (NotDetected) A 02/11/23 17:23 Strep agalactiae (PCR) DETECTED (NotDetected) A 02/11/23 17:23 Bld Cult ID Panel PCR See PCR Comment (NotDetected) 02/11/23 17:23 Impressions Chest X-Ray 02/11/23 15:23 XR chest 1V not portable CLINICAL HISTORY: Chest pain, nonspecific TECHNIQUE: Single frontal radiograph of the chest was obtained. Comparison: Comparison is made to chest radiograph 11/30/2022 FINDINGS: Exam is limited by underpenetration. Cardiomegaly is noted. The lungs are clear. No evidence of pleural effusion or pneumothorax. IMPRESSION: No acute chest disease. ACT 112: Negative or not required by law. Electronically signed by: David Mcclain M.D. 02/11/2023 3:36 PM Cervical Spine MRI 02/11/23 16:48 Exam(s): MRI C SPINE EXAM: MR Cervical Spine Without Intravenous Contrast CLINICAL HISTORY: Reason for exam: ? infection with back pain and a recent previous b. TECHNIQUE: Magnetic resonance images of the cervical spine without intravenous contrast in multiple planes. COMPARISON: No relevant prior studies available. FINDINGS: Limitations: Limited study. Only sagittal noncontrast images were able to be acquired which are motion degraded. No axial images were able to be acquired. Vertebrae: Straightening of the cervical spine with loss of normal lordosis. Alignment is maintained with preservation of vertebral body heights. No abnormal bone marrow signal. No acute fracture. Spinal cord: Unremarkable. No gross abnormal spinal cord signal. No gross spinal canal stenosis. Soft tissues: Soft tissue edema within the posterior soft tissues extending from the C3 through C5 level centered at the C3 spinous process. IMPRESSION: 1. Soft tissue edema within the posterior soft tissues extending from the C3 through C5 level centered at the C3 spinous process. 2. Limited study. Only sagittal noncontrast images were able to be acquired which are motion degraded. No axial images were able to be acquired. Electronically signed by: Cj Crawford M.D. 02/11/23 22:22 PM Venous Doppler Study 02/12/23 00:27 Exam(s): US VENOUS BILATERAL LOWER EXTREMITIES EXAM: US Duplex Bilateral Lower Extremities Veins CLINICAL HISTORY: Reason for exam: b/l edema and right leg erythema . DVT?. TECHNIQUE: Real-time duplex ultrasound scan of the bilateral lower extremity veins integrating B-mode two-dimensional vascular structure, Doppler spectral analysis, color flow Doppler imaging and compression. COMPARISON: No relevant prior studies available. FINDINGS: Right deep veins: Unremarkable. No DVT in the right common femoral, femoral, proximal deep femoral or popliteal veins. The veins demonstrate normal color flow, are normally compressible, with normal phasic flow and/or augmentation response. Left deep veins: Unremarkable. No DVT in the left common femoral, femoral, proximal deep femoral or popliteal veins. The veins demonstrate normal color flow, are normally compressible, with normal phasic flow and/or augmentation response. Soft tissues: No acute findings. No popliteal cyst. IMPRESSION: No evidence of bilateral lower extremity deep venous thrombosis. Electronically signed by: Cj Crawford M.D. 02/12/23 03:[address] 02/12/23 11:31 CT SCAN OF THE CERVICAL SPINE WITH IV CONTRAST CLINICAL HISTORY: Back pain. Report history spinal infection. Clinical concern for epidural abscess. COMPARISON STUDY: CT angiogram the neck dated 12/25/2021. Limited cervical spine MRI images dated 02/11/2023. TECHNIQUE: CT scan of the cervical spine is performed from the skull base to the upper thoracic spine following the IV administration of 118 cc of Optiray 350. Images are reviewed in the axial, sagittal, and coronal planes. IV contrast was administered without complication. A dose lowering technique was utilized adhering to the principles of ALARA. The examination is degraded by large body habitus, and by streak artifact from the patient's shoulders. CT DOSE: 2244.79 mGy.cm FINDINGS: Skeletal structures: The skeletal structures are well mineralized. There is no evidence of fracture or subluxation involving the cervical spine. There is no bony erosion or periostitis. Vertebral body height and alignment are maintained. There is straightening of the cervical lordosis. Anterior osteophytes are seen throughout. The odontoid process and lateral masses are intact. The atlantoaxial articulation is preserved. The spinous processes appear intact. There is moderate multilevel cervical spondylosis. Uncovertebral and facet arthropathy contribute to neural foraminal narrowing at several levels. Intervertebral discs: There is moderate disc space narrowing at C4-C5, C5-C6, C6-C7, and C7-T1. Central canal: Posterior disc osteophyte complexes at C5-C6 and C6-C7 may contribute to acquired compromise of the central canal. There is no CT evidence of epidural fluid collection. Note that this is not well evaluated. Soft tissues: The prevertebral soft tissues are within normal limits. The carotid arteries and jugular veins are patent bilaterally. Nonspecific edema within the posterior paraspinous soft tissues at C2-C5 was much better assessed on the limited MRI sequences. No fluid collection is identified. Calvarium: The visualized calvarium at the skull base appears intact. Brain parenchyma: Partially visualized brain parenchyma at the skull base is within normal limits. Sinuses and mastoids: The visualized paranasal sinuses are clear. The mastoid a ir cells are well pneumatized. Lung apices: Clear as visualized. IMPRESSION: 1. Significantly streak artifact degraded examination. 2. There is no CT evidence of epidural fluid collection. Note that this is not well assessed by CT and is not excluded. 3. No acute bony abnormality is seen involving the cervical spine. 4. Edema within the posterior paraspinous soft tissues is again seen at C3-C5. This was much better assessed on the limited MRI sequences from yesterday. There is no fluid collection identified in the paraspinous tissues to suggest abscess. 5. Additional findings as above. ACT 112: Negative or not required by law. Electronically signed by: Kameron Diaz M.D. 02/12/2023 1:[address] 02/12/23 11:[address] WITH CONTRAST CLINICAL HISTORY: Rule out epidural abscess. COMPARISON STUDY: Lumbar spine CT September 10, 2021. Lumbar spine MRI September 28, 2021. TECHNIQUE: Axial images of the lumbar spine were obtained following intravenous injection of 118 cc of Optiray 350 IV. Sagittal and coronal reconstructions were viewed. Automated exposure control was utilized for the study. A dose lowering technique was utilized adhering to the principles of ALARA. FINDINGS: For purposes of numbering on this exam, the L5-S1 disc space is assigned to axial image 160 of 211. Alignment of the lumbar spine is anatomic. This exam is markedly compromised by quantum mottle artifact. No fractures are identified. Severe disc space narrowing at L2-L3 is noted. This is similar to abdominal CT of December 05, 2022. This likely reflects sequela of discitis/osteomyelitis shown on MRI of September 28, 2021. There is moderate multilevel facet arthrosis. There is also moderate multilevel disc space narrowing and ossified ptosis within the lumbar spine. Vacuum disc phenomenon at several levels is noted. Evaluation of the central canal and neural foramen is nearly nondiagnostic. No epidural fluid collection is identified although sensitivity is markedly diminished on this exam. Paravertebral soft tissues are unremarkable. IMPRESSION: 1. Exam significantly compromised by quantum mottle artifact. No lumbar spine fractures identified. 2. Moderate multilevel degenerative disc disease and facet arthrosis within the lumbar spine. 3. Near nondiagnostic evaluation of the epidural space however no fluid collecti on identified by CT. 4. Severe disc space narrowing at L2-L3 which likely reflects sequela of previous episode of discitis/osteomyelitis shown on MRI of September 28, 2021. ACT 112: Negative or not required by law. Electronically signed by: Perry Zheng M.D. 02/12/2023 1:[address] 02/12/23 11:31 CT thoracic spine w con CLINICAL HISTORY: concern for epidural abscess/discitis TECHNIQUE: Multidetector row helical CT of the thoracic spine was performed without administration of intravenous contrast. Coronal and sagittal reformations were obtained. Automated dose lowering techniques and/or adjustment according to patient size were utilized for this exam. Comparison: None available at the time of this dictation. FINDINGS: Exam is limited by patient body habitus. No acute fractures are identified. Degenerative changes are noted in the visualized spine. Vertebral body alignment is within normal limits. Surrounding soft tissues are unremarkable. IMPRESSION: No acute abnormality and in particular no evidence of epidural abscess, although evaluation is limited by patient body habitus. ACT 112: Negative or not required by law. Electronically signed by: David Mcclain M.D. 02/12/2023 1:[address] 02/13/23 08:54 CT shoulder LT w con CLINICAL HISTORY: Redness and swelling.? septic arthritis TECHNIQUE: Multidetector row helical CT of the left shoulder was performed without intravenous contrast. Coronal and sagittal reformations were obtained. Automated dose lowering techniques and/or adjustment according to patient size were utilized for this examination. CT DOSE: 452.15 mGy.cm Comparison: None available at the time of this dictation. FINDINGS: The osseous structures are without fracture or dislocation. Degenerative changes are seen. No evidence of joint effusion or bony destruction. No joint effusion is seen. Mild soft tissue edema is seen. IMPRESSION: Degenerative changes and mild soft tissue edema without evidence of septic arthritis or abscess. ACT 112: Negative or not required by law. Electronically signed by: David Mcclain M.D. 02/13/2023 11:36 AM
--- NOTE | 2023-02-17 13:08 | Infectious Disease Consult ---
Date of Consultation February 17, 2023 Assessment & Plan (1) Bacteremia: Plan Assessment: Streptococcus agalactiae bacteremia R/o L shoulder cellulitis Morbid obesity Hx of E faecalis bacteremia and L2-L3 discitis w/ epidural abscess (2021), A fib on xarelto, HTN, gastric bypass, CAD, CHF, and PHYLLIS on CPAP and nocturnal O2 Plan: - Continue ceftriaxone 2 gm iv qd to complete total 2 weeks from 02/12/23 - Consider KIMBERLY if unable to provide further detail on the anterior leaflet pathology to r/o infective endocarditis in the setting of bacteremia. - F/u repeat blood cultures from 02/13/23:no growth to date - Final rec to follow The source of the bacteremia is unclear. Although the patient reports pain in shoulder, there is no obvious findings suggestive of a source of infection in that area: no obvious evidence of skin and soft tissue infection or joint infection. Given the abnormal echo finding, I suggest to perform KIMBERLY. If KIMBERLY is negative and the repeat blood cultures remain negative, anticipate total 2 weeks of abx therapy from 02/12/23. Consultation Information This patient recommendation is based on a telemedicine consult request which was completed asynchronously through chart review and information provided by the primary physician. The patient was not seen or examined today. The evaluation is consultative in nature and all patient care and treatment decisions can either be accepted or rejected by the patient's primary hospital-based treating physician using their own independent medical judgment for their patient. [employer] contact information: Please call [facility] Call Center . (Phone Number For Physician Use Only) Time Spent Reviewing Chart: 31+ minutes History of Present Illness Reason for Consultation: Streptococcus agalactiae bacteremia Requesting Physician: Jovi Cohen MD Attending Physician: Jovi Cohen MD History of Present Illness This 62 y/o morbidly obese male ("Wu") w/ hx of Enterococcus bacteremia and L2-L3 discitis w/ epidural abscess (2021), A fib on xarelto, HTN, gastric bypass, CAD, CHF, and PHYLLIS on CPAP and nocturnal O2, presented to [facility] on 02/11/23 for pain in L shoulder -> R shoulder -> lower back since 02/08/23 but w/o any focal neurologic deficit/symptoms. He also reports L hip pain (started on 02/11) and L knee during hospitalization. He does not have any HW on his body. No obvious injury or trauma or recent procedure/surgery. No obvious dental issues. No fever or leukocytosis were noted on admission. He was noted to have redness on L shoulder.Found to have positive blood cultures w/ Streptococcus agalactiae. The patient was initially started on zosyn and daptomycin iv but deescalated to ceftriaxone 2 gm iv qd. There was no radiographic evidence of deep seated infection such as osteomyelitis or abscess. Currently, the patient is resting comfortably in bed but L shoulder is still there w/ a little bit on the R, too. However, the overall pain has improved. No diarrhea, abd pain, n/v, f/c, coughing, cp, sob, or any specific urinary symptoms. No obvious localized neurological symptoms. Allergies Allergy/AdvReac Type Severity Reaction Status Date / Time No Known Allergies Allergy ` Verified 02/11/23 20:29 Home Medications Medication Instructions Recorded Confirmed Type diclofenac sodium 1 % topical gel 2 g topical QID PRN Pain 11/24/18 02/11/23 History magnesium oxide 400 mg PO BID 11/24/18 02/11/23 History rivaroxaban 20 mg tablet (Xarelto) 20 mg PO QPM 11/24/18 02/11/23 History ferrous sulfate 325 mg (65 mg 325 mg PO QPM 11/28/18 02/11/23 History iron) tablet (iron) meloxicam 15 mg tablet 15 mg PO DAILY PRN arthritis 09/28/21 02/11/23 History ergocalciferol (vitamin D2) 1,250 50,000 unit PO WK #4 caps 12/29/21 02/11/23 Rx mcg (50,000 unit) capsule (Vitamin D2) trazodone 50 mg tablet 150 mg PO QDD PRN Sleep #15 tabs 12/29/21 02/11/23 Rx fluoxetine 10 mg capsule 10 mg PO DAILY 11/30/22 02/11/23 History gabapentin 300 mg capsule 600 mg PO AMHS 11/30/22 02/11/23 History tramadol 50 mg tablet 50 mg PO BID PRN Pain 11/30/22 02/11/23 History metoprolol succinate 50 mg 50 mg PO BID #60 tabs 12/07/22 02/11/23 Rx tablet,extended release 24 hr spironolactone 25 mg tablet 25 mg PO QAM #30 tabs 12/07/22 02/11/23 Rx cyclobenzaprine 10 mg tablet 10 mg PO HS PRN Muscle Spasm 02/11/23 02/11/23 History tolnaftate 1 % topical powder 1 applic topical BID 02/11/23 02/11/23 History torsemide 20 mg tablet 20 mg PO QAM 02/11/23 02/11/23 History Patient History Medical History Chest pain Chronic anticoagulation Coronary artery disease "moderate disease per cardiac cath [facility] 2013; 50% LAD, 40% RCA" Depression Diabetes mellitus type 2, controlled Borderline blood sugar previously but no longer an issue Gram-positive bacteremia History of colonic polyps History of urinary calculi "right ureteral stone 2015" Hx of sciatica Hypertension Hypothyroidism Insomnia Iron deficiency anemia "heme + stool 2015, subsequent EGD and colonoscopy neg except for polyp" Lumbar disc herniation Lumbar radiculopathy Morbid obesity Paroxysmal atrial fibrillation Ventricular septal defect Vitamin B12 deficiency Surgical History Status post cardiac catheterization "[place] 2013, 50% LAD, 40% RCA" Status post cystoscopy "with right ureteroscopy, laser lithotripsy, basket stone extraction" Status post gastric bypass for obesity Family History Other No pertinent family history Social History Smoking Status: Never smoker Second Hand Exposure: No; Do You Dip or Chew Tobacco: No; Tobacco Cessation Education Requested by Patient: No Hx Alcohol Use: No Hx Substance Use: No Preferred Language: Latvian Communication Ability: Effective Hearing Ability: Normal Directory Clerk Required: No Beliefs That Will Affect Care: None marital status: Single Current Living Situation: Parent Current Living Situation Comment: with parents in one story home with ramp to entrance Other Information That Helps Us Care for You: No Feels Safe at Home: Yes Safety Concerns: Feels Safe At This Time Assistive Devices: Cane Review of System as above and all others negative Physical Exam Constitutional: WD/WN, vitals as above Skin: I have seen his L shoulder, assisted by the nursing staff at bedside: no obvious erythema Neurologic: Alert and oriented x 3 Results & Data Vital Signs (Past 12 Hours) Vital Signs Temp Pulse Resp BP BP Pulse Ox O2 Del Method 02/17/23 11:39 36.6 C 95 H 19 106/72 92 Room Air 02/17/23 07:20 37.1 C 70 19 119/80 90 Room Air 02/17/23 03:10 36.5 C 83 18 104/71 92 Room Air Laboratory Results WBC 11.89K H 15.1 Plt 286K Cr 0.7 Echo: Moderate MR w/ mitral regurgitant jet consistent w/ anterior leaflet pathology CT shoulder: Degenerative changes and mild soft tissue edema without evidence of septic arth ritis or abscess. CT thoracic spine: No acute abnormality and in particular no evidence of epidural abscess, although evaluation is limited by patient body habitus. CT lumbar spine: 1. Exam significantly compromised by quantum mottle artifact. No lumbar spine fractures identified. 2. Moderate multilevel degenerative disc disease and facet arthrosis within the lumbar spine. 3. Near nondiagnostic evaluation of the epidural space however no fluid collection identified by CT. 4. Severe disc space narrowing at L2-L3 which likely reflects sequela of previous episode of discitis/osteomyelitis shown on MRI of September 28, 2021. CT cervical spine: 1. Significantly streak artifact degraded examination. 2. There is no CT evidence of epidural fluid collection. Note that this is not well assessed by CT and is not excluded. 3. No acute bony abnormality is seen involving the cervical spine. 4. Edema within the posterior paraspinous soft tissues is again seen at C3-C5. This was much better assessed on the limited MRI sequences from yesterday. There is no fluid collection identified in the paraspinous tissues to suggest abscess. Doppler: No evidence of bilateral lower extremity deep venous thrombosis. CXR: No acute chest disease. Diagnostic Findings Blood cx (02/11): Streptococcus agalactiae (2 of 4) Blood cx (02/13): NGTD Medications Administered Zosyn + daptomycin iv -> Ceftriaxone 2 gm iv qd
[2023-02-17] MEDS: DIGOXIN 0.125 MG/2.5 ML UDP PO SCH (15:35)
[2023-02-17] MEDS: ACETAMINOPHEN 325 MG TAB PO PRN (15:35)
[2023-02-17] MEDS: RIVAROXABAN 20 MG TAB PO SCH (15:35)
[2023-02-17] MEDS: ADVANCED PROBIOTIC 1250 MG CAPSULE PO SCH (15:39)
[2023-02-17] MEDS: CYCLOBENZAPRINE HCL 10 MG TAB PO PRN (20:52)
[2023-02-17] MEDS: traZODone HCL 50 MG TAB PO PRN (20:52)
[2023-02-17] MEDS: FERROUS SULFATE 325 MG TAB PO SCH (20:53)
[2023-02-17] MEDS: HYDROmorphone INJ 0.5 MG/0.5 ML SYR IV PRN (21:39)
[2023-02-18] MEDS: oxyCODONE HCL IR 5 MG TAB (IMMEDIATE RELEASE) PO PRN ×3 (03:09→20:27)
[2023-02-18] MEDS: FLUoxetine HCL 10 MG CAP PO SCH (08:40)
[2023-02-18] MEDS: SPIRONOLACTONE 25 MG TAB PO SCH (08:40)
[2023-02-18] MEDS: GABAPENTIN 300 MG CAP PO SCH ×2 (08:40→20:27)
[2023-02-18] MEDS: MAGNESIUM OXIDE 400 MG TAB PO SCH ×2 (08:40→20:28)
[2023-02-18] MEDS: ADVANCED PROBIOTIC 1250 MG CAPSULE PO SCH (08:40)
[2023-02-18] MEDS: TORSEMIDE 10 MG TAB PO SCH (08:40)
[2023-02-18] MEDS: METOPROLOL SUCC 50MG EXT REL TAB PO SCH ×2 (08:40→21:42)
--- NOTE | 2023-02-18 12:02 | Cardiology Progress Note ---
Date of Service February 18, 2023 Assessment & Plan (1) Permanent atrial fibrillation with rapid ventricular response: (2) Chronic heart failure with preserved ejection fraction (HFpEF): (3) Right heart failure: (4) Back pain: (5) Bacteremia: Plan Chronic HFpEF/RHF and permanent atrial fibrillation. Compensated volume status, back on his prior to arrival oral diuretic regimen Heart rate controlled following uptitration of metoprolol succinate from 50 mg BID to 100 mg BID and the addition of digoxin Continue rate control with metoprolol succinate 100 mg BID and oral digoxin 0.125 mg daily. Continue anticoagulation, Xarelto 20 mg daily, for stroke prevention Continue oral torsemide and spironolactone. Maintain normokalemia and normomagnesemia. 4 weeks of IV Ceftriaxone, 2 grams daily starting from 02/12/2023. Repeat TTE in 4 weeks Admission and Anticipated Discharge Date Admission Date: February 11, 2023 Supervising Physician Co-Signing Physician Notes Supervising Physician Attestation: I have personally performed a history and physical examination on the patient. I agree with the physician visitor services information assistant's findings and plan as documented with the following additions. Subjective: Patient subjectively improved. Bilateral arm pain improved but not resolved completely. Atrial fibrillation noted on telemetry which is rate controlled with rates in the 80s to 90s. Exam: Cardiovascular irregular rhythm, 1/6 systolic murmur, no edema. Assessment and Plan: As noted above Arsalan Morley, DO Subjective Patient seen and examined. Chart, medications, and telemetry reviewed. Feeling OK. + Bilateral shoulder and arm pain No chest pain, palpitations, unusual shortness of breath, cough, orthopnea, PND, or peripheral edema. Telemetry: Atrial fibrillation in the 80's and 90's over the last 24 hours History of osteomyelitis and discitis at L2-L3 in 2021 and epidural abscess Patient presented to the hospital with neck pain, left greater than right shoulder pain, left should cellulitis, and weakness Blood cultures on 02/11/2023 with Group B Beta Strep. Blood cultures on 02/13/2023, with no growth after 5 days. Echocardiogram with preserved left ventricular ejection fraction, moderate posteriorly directed mitral regurgitation, unchanged compared to previous echo. No evidence of vegetation within the scope of TTE KIMBERLY risks felt to be greater than the benefit given body habitus, risk of airway compromise, results not likely changing management at this point. Cervical, thoracic and lumbar CT chest without acute abnormality. MRI unable to be performed. [facility] recommending 4 weeks with IV Ceftriaxone 2 mg daily staring from 02/12/2023. Review of Systems Review of Systems: Complete review of systems is as stated above, negative, or noncontributory. Physical Exam Physical Exam: General: A&Ox3. NAD. Elevated BMI. HENT: Normocephalic. Atraumatic. Eyes: PER. Conjunctiva pink, sclera clear. Neck: No carotid bruits. No JVD. Heart: Irregularly irregular, 86 bpm. No murmur appreciated. Lungs: Clear to auscultation. Abdomen: +BS. Soft. Nontender. No masses or organomegaly. Extremities: No clubbing, cyanosis, or significant edema. Limited neurological examination is without focal deficits. Constitutional: + morbidly obese Eyes: PERRL, conjunctivae normal, anicteric sclerae Cardiovascular: Rate/Rhythm: + tachycardic and + irregularly irregular Heart Sounds: + murmur (1/6 systolic murmur) Extremities: + edema (2+ bilateral lower extremity edema) Gastrointestinal (Abdomen): normal bowel sounds, soft, nontender, no hepatosplenomegaly Neurologic: PERRL, EOMI, accommodation nl, no face palsy, no dysarthria Results & Data Vital Signs (Past 12 Hours) Vital Signs Temp Pulse Resp BP Pulse Ox O2 Del Method 02/18/23 11:23 36.3 C L 83 19 109/72 92 Room Air 02/18/23 07:33 36.4 C L 82 19 115/75 92 Room Air 02/18/23 03:57 36.3 C L 85 18 111/76 92 Room Air Laboratory Results Intake and Output 02/17/23 02/18/23 02/18/23 22:59 06:59 14:59 Intake Total 200 / 1610 500 / 1610 Output Total 800 / 3750 1350 / 3750 200 / 200 Balance -600 / -2140 -850 / -2140 -200 / -200 Intake: Oral 200 / 1540 500 / 1540 Output: Urine 800 / 3750 1350 / 3750 200 / 200 Other: Weight 180.1 kg 176.2 kg Weight Measurement Method Standing Scale
[2023-02-18] MEDS: cefTRIAXone SODIUM 2,000 MG in DEXTROSE 5% 50 ML IV SCH (12:31)
[2023-02-18 13:04] LABS: Lyme Ab IgG w/WB Rflx Negative (Negative); Lyme Ab IgM w/WB Rflx Negative (Negative)
--- NOTE | 2023-02-18 15:19 | Hospitalist Progress Note ---
Date of Service February 18, 2023 Assessment & Plan (1) Back pain: Plan: 62-year-old male with past medical significant for hypothyroidism, atrial fibrillation, hypertension, morbid obesity, s/p gastric bypass, CHF, obstructive sleep apnea could not tolerate CPAP currently uses oxygen on most nights as per patient, GERD, history of CAD, history of osteomyelitis and discitis at L2-L3 in 2021 and epidural abscess requiring 1 month stay in [facility] [place] and and rehab comes with neck pain radiating to shoulders and back since last Wednesday. Group B beta strep bacteremia Hx of discitis and epidural abscess in 2021 left Shoulder cellulitis Presents to the hospital with shoulder pain and generalized weakness since last 6 days Afebrile, normotensive. In atrial fibrillation blood culture on admission positive for group B beta strep. Cervical, thoracic and lumbar CT chest no acute abnormality/no evidence of epidural abscess. MRI was not able to be done due to difficulty lying down. ESR minimally elevated to 24 CT of the left shoulder did not show any concerns of septic arthritis. Mild soft tissue edema present. Echocardiogram shows EF of 60 to 65%; no vegetation reported. Similar echo compared to his echocardiogram from November 2022 Continue on ceftriaxone. Repeat blood culture negative so far. The likely source of bacteremia is episode of cellulitis. ID evaled -recommended 4 weeks of IV ceftriaxone. c/w rocephin A-fib with RVR On presentation; presented with A-fib with RVR. On metoprolol succinate and Xarelto. Metoprolol dose increased to 100 mg twice daily. Also digoxin added. Last admission diltiazem was stopped because of pause and bradycardia Cardiology on board c/w xarelto Acute on chronic CHFpEF Reduced right ventricular function Diuresed with IV diuretics DVT ruled out by venous duplex. Strict input and output. Daily weights. Diuretics changed back to home dose. Obstructive sleep apnea Could not tolerate CPAP as per patient Uses oxygen 2 to 3 L on most nights as per patient History of CAD On beta-stef and Xarelto Morbid obesity: counselled. DVT prophylaxis Xarelto Disposition telemetry floor Full code dispoPT OT evaluated the patient; not safe to return home at current level. Recommend inpatient rehab for safety. He doesn't want rehab now. Pt states he would like to go home w/ HH, likely jimbo. (2) Atrial fibrillation with rapid ventricular response: Admission and Anticipated Discharge Date Admission Date: February 11, 2023 Subjective Patient seen and examined at bedside. He is lying on the bed comfortably; not in any distress. No overnight events. Reports that his shoulder is painful again today after having to use walker, advise can use diclo gel on the shoulders Physical Exam Physical Exam: Constitutional: Alert orient x3; not in distress. Morbidly obese. Respiratory: Bilateral vesicular breath sound. Cardiovascular: Irregular, no murmur, no edema Vessels: no JVD or carotid bruit Chest: normal inspection of chest Abdomen: normal bowel sounds, soft, nontender, no hepatosplenomegaly Musculoskeletal: no cyanosis or clubbing, extremities motor strength 5/5. trace edema present. Left shoulder has overlying erythema -- appears almost cleared. Range of motion improved. Left knee slightly more swollen than right. No overlying erythema or tenderness. Skin: no rashes, warm and dry normal turgor Neurologic: PERRL, EOMI, accommodation nl, no face palsy, no dysarthria CN's II- XI intact bilaterally and moves all extremities Psychiatric: A+Ox3, euthymic affect Results & Data Results & Data Vital Signs (Past 12 Hours) Vital Signs Temp Pulse Resp BP Pulse Ox O2 Del Method 02/18/23 11:23 36.3 C L 83 19 109/72 92 Room Air 02/18/23 07:33 36.4 C L 82 19 115/75 92 Room Air 02/18/23 03:57 36.3 C L 85 18 111/76 92 Room Air
[2023-02-18] MEDS: RIVAROXABAN 20 MG TAB PO SCH (16:56)
[2023-02-18] MEDS: DIGOXIN 0.125 MG/2.5 ML UDP PO SCH (16:56)
[2023-02-18] MEDS: FERROUS SULFATE 325 MG TAB PO SCH (20:28)
[2023-02-18] MEDS: HYDROmorphone INJ 0.5 MG/0.5 ML SYR IV PRN (21:42)
[2023-02-19] MEDS: SPIRONOLACTONE 25 MG TAB PO SCH (08:11)
[2023-02-19] MEDS: MAGNESIUM OXIDE 400 MG TAB PO SCH ×2 (08:11→20:29)
[2023-02-19] MEDS: TORSEMIDE 10 MG TAB PO SCH (08:11)
[2023-02-19] MEDS: METOPROLOL SUCC 50MG EXT REL TAB PO SCH ×2 (08:11→20:30)
[2023-02-19] MEDS: ADVANCED PROBIOTIC 1250 MG CAPSULE PO SCH (08:11)
[2023-02-19] MEDS: GABAPENTIN 300 MG CAP PO SCH ×2 (08:11→20:29)
[2023-02-19] MEDS: FLUoxetine HCL 10 MG CAP PO SCH (08:11)
[2023-02-19] MEDS: oxyCODONE HCL IR 5 MG TAB (IMMEDIATE RELEASE) PO PRN ×3 (08:17→20:28)
--- NOTE | 2023-02-19 11:44 | Cardiology Progress Note ---
Date of Service February 19, 2023 Assessment & Plan (1) Permanent atrial fibrillation with rapid ventricular response: (2) Chronic heart failure with preserved ejection fraction (HFpEF): (3) Right heart failure: (4) Back pain: (5) Bacteremia: Plan Chronic HFpEF/RHF and permanent atrial fibrillation. Compensated volume status. Heart rates adequately controlled. Recommendations: 1. Continue rate control with metoprolol succinate 100 mg BID and oral digoxin 0.125 mg daily. 2. Continue anticoagulation, Xarelto 20 mg daily, for stroke prevention 3. Continue oral torsemide and spironolactone as prescribed. 4. Four weeks of IV Ceftriaxone, 2 grams daily, starting from 02/12/2023. 5. Repeat TTE in 4 weeks 6. Please contact with any questions or concerns Admission and Anticipated Discharge Date Admission Date: February 11, 2023 Supervising Physician Co-Signing Physician Notes Supervising Physician Attestation: I have personally performed a history and physical examination on the patient. I agree with the physician kindergarten assistant's findings and plan as documented with the following additions. Subjective: Patient without cardiac complaint. Ongoing bilateral shoulder pain noted Exam: Cardiovascular irregular rhythm, 1/6 systolic murmur, trace edema Assessment and Plan: As noted above Arsalan Morley, DO Subjective Patient seen and examined. Chart, medications, and telemetry reviewed. Tired. Did not sleep well. Ongoing shoulder and arm pain. No chest pain. No palpitations. No shortness of breath. Fluid improved. Telemetry: Atrial fibrillation with heart rates predominantly in the 80 to 100 bpm range. Review of Systems Review of Systems: Complete review of systems is as stated above, negative, or noncontributory. Physical Exam Physical Exam: Examined in the bedside chair General: A&Ox3. NAD. Elevated BMI. HENT: Normocephalic. Atraumatic. Eyes: PER. Conjunctiva pink, sclera clear. Neck: No carotid bruits. No JVD. Heart: Irregularly irregular, 88 bpm. No murmur appreciated. Lungs: Clear to auscultation. Abdomen: +BS. Soft. Nontender. No masses or organomegaly. Extremities: No clubbing, cyanosis, or significant edema. Limited neurological examination is without focal deficits. Results & Data Vital Signs (Past 12 Hours) Vital Signs Temp Pulse Resp BP Pulse Ox O2 Del Method 02/19/23 08:00 Room Air 02/19/23 08:13 36.3 C L 82 19 112/75 94 Room Air 02/19/23 04:38 36.4 C L 88 20 114/60 94 Room Air Laboratory Results Intake and Output 02/18/23 02/19/23 02/19/23 22:59 06:59 14:59 Intake Total 240 / 1265 200 / 1265 Output Total 1050 / 2475 225 / 2475 Balance -810 / -1210 -25 / -1210 Intake: Oral 240 / 1195 200 / 1195 Output: Urine 1050 / 2475 225 / 2475 Other: Weight 172 kg Weight Measurement Method Standing Scale
[2023-02-19] MEDS: cefTRIAXone SODIUM 2,000 MG in DEXTROSE 5% 50 ML IV SCH (12:38)
[2023-02-19] MEDS: ACETAMINOPHEN 325 MG TAB PO PRN (12:44)
--- NOTE | 2023-02-19 16:07 | Hospitalist Progress Note ---
Date of Service February 19, 2023 Assessment & Plan (1) Back pain: Plan: 62-year-old male with past medical significant for hypothyroidism, atrial fibrillation, hypertension, morbid obesity, s/p gastric bypass, CHF, obstructive sleep apnea could not tolerate CPAP currently uses oxygen on most nights as per patient, GERD, history of CAD, history of osteomyelitis and discitis at L2-L3 in 2021 and epidural abscess requiring 1 month stay in [facility] [place] and rehab comes with neck pain radiating to shoulders and back since last Wednesday. Group B beta strep bacteremia Hx of discitis and epidural abscess in 2021 left Shoulder cellulitis Presents to the hospital with shoulder pain and generalized weakness since last 6 days Afebrile, normotensive. In atrial fibrillation blood culture on admission positive for group B beta strep. Cervical, thoracic and lumbar CT chest no acute abnormality/no evidence of epidural abscess. MRI was not able to be done due to difficulty lying down. ESR minimally elevated to 24 CT of the left shoulder did not show any concerns of septic arthritis. Mild soft tissue edema present. Echocardiogram shows EF of 60 to 65%; no vegetation reported. Similar echo compared to his echocardiogram from November 2022 Continue on ceftriaxone. Repeat blood culture negative so far. The likely source of bacteremia is episode of cellulitis. ID evaled -recommended 4 weeks of IV ceftriaxone. c/w rocephin, TTE in 4 weeks A-fib with RVR On presentation; presented with A-fib with RVR. On metoprolol succinate and Xarelto. Metoprolol dose increased to 100 mg twice daily. Also digoxin added. Last admission diltiazem was stopped because of pause and bradycardia Cardiology on board c/w xarelto Acute on chronic CHFpEF Reduced right ventricular function Diuresed with IV diuretics DVT ruled out by venous duplex. Strict input and output. Daily weights. Diuretics changed back to home dose. Obstructive sleep apnea Could not tolerate CPAP as per patient Uses oxygen 2 to 3 L on most nights as per patient History of CAD On beta-stef and Xarelto Morbid obesity: counselled. DVT prophylaxis Xarelto Disposition telemetry floor Full code dispolikely next 1-2 days. (2) Atrial fibrillation with rapid ventricular response: Admission and Anticipated Discharge Date Admission Date: February 11, 2023 Subjective Patient seen and examined at bedside. He is lying on the bed comfortably; not in any distress. No overnight events. Reports feeling weak and tired and does not feel safe to go home today. Denies any specific complaints. Physical Exam Physical Exam: Constitutional: Alert orient x3; not in distress. Morbidly obese. Respiratory: Bilateral vesicular breath sound. Cardiovascular: Irregular, no murmur, no edema Vessels: no JVD or carotid bruit Chest: normal inspection of chest Abdomen: normal bowel sounds, soft, nontender, no hepatosplenomegaly Musculoskeletal: no cyanosis or clubbing, extremities motor strength 5/5. trace edema present. Left shoulder has overlying erythema -- appears almost cleared. Range of motion improved. Left knee slightly more swollen than right. No overlying erythema or tenderness. Skin: no rashes, warm and dry normal turgor Neurologic: PERRL, EOMI, accommodation nl, no face palsy, no dysarthria CN's II- XI intact bilaterally and moves all extremities Psychiatric: A+Ox3, euthymic affect Results & Data Results & Data Vital Signs (Past 12 Hours) Vital Signs Temp Pulse Resp BP Pulse Ox O2 Del Method 02/19/23 16:03 36.5 C 88 19 103/65 94 Room Air 02/19/23 12:04 36.5 C 89 18 109/73 93 Room Air 02/19/23 08:00 Room Air 02/19/23 08:13 36.3 C L 82 19 112/75 94 Room Air 02/19/23 04:38 36.4 C L 88 20 114/60 94 Room Air
[2023-02-19] MEDS: DIGOXIN 0.125 MG/2.5 ML UDP PO SCH (17:12)
[2023-02-19] MEDS: RIVAROXABAN 20 MG TAB PO SCH (17:13)
[2023-02-19] MEDS: FERROUS SULFATE 325 MG TAB PO SCH (20:30)
[2023-02-19] MEDS: HYDROmorphone INJ 0.5 MG/0.5 ML SYR IV PRN (21:36)
[2023-02-20] MEDS: oxyCODONE HCL IR 5 MG TAB (IMMEDIATE RELEASE) PO PRN ×3 (03:02→20:28)
[2023-02-20] MEDS: METOPROLOL SUCC 50MG EXT REL TAB PO SCH ×2 (09:15→21:54)
[2023-02-20] MEDS: GABAPENTIN 300 MG CAP PO SCH ×2 (09:16→20:29)
[2023-02-20] MEDS: MAGNESIUM OXIDE 400 MG TAB PO SCH ×2 (09:16→20:29)
[2023-02-20] MEDS: ADVANCED PROBIOTIC 1250 MG CAPSULE PO SCH (09:17)
[2023-02-20] MEDS: SPIRONOLACTONE 25 MG TAB PO SCH (09:18)
[2023-02-20] MEDS: FLUoxetine HCL 10 MG CAP PO SCH (09:18)
[2023-02-20] MEDS: TORSEMIDE 10 MG TAB PO SCH (12:25)
[2023-02-20] MEDS: cefTRIAXone SODIUM 2,000 MG in DEXTROSE 5% 50 ML IV SCH (12:29)
[2023-02-20] MEDS ORDERED: DIGOXIN 0.125 MG TAB PO SCH (16:00)
--- NOTE | 2023-02-20 18:08 | Hospitalist Progress Note ---
Date of Service February 20, 2023 Assessment & Plan (1) Back pain: Plan: 62-year-old male with past medical significant for hypothyroidism, atrial fibrillation, hypertension, morbid obesity, s/p gastric bypass, CHF, obstructive sleep apnea could not tolerate CPAP currently uses oxygen on most nights as per patient, GERD, history of CAD, history of osteomyelitis and discitis at L2-L3 in 2021 and epidural abscess requiring 1 month stay in [facility] and and rehab comes with neck pain radiating to shoulders and back since last Wednesday. Group B beta strep bacteremia Hx of discitis and epidural abscess in 2021 left Shoulder cellulitis Presents to the hospital with shoulder pain and generalized weakness since last 6 days Afebrile, normotensive. In atrial fibrillation blood culture on admission positive for group B beta strep. Cervical, thoracic and lumbar CT chest no acute abnormality/no evidence of epidural abscess. MRI was not able to be done due to difficulty lying down. ESR minimally elevated to 24 CT of the left shoulder did not show any concerns of septic arthritis. Mild soft tissue edema present. Echocardiogram shows EF of 60 to 65%; no vegetation reported. Similar echo compared to his echocardiogram from November 2022 Continue on ceftriaxone. Repeat blood culture negative so far. The likely source of bacteremia is episode of cellulitis. ID evaled -recommended 4 weeks of IV ceftriaxone. c/w rocephin, TTE in 4 weeks A-fib with RVR On presentation; presented with A-fib with RVR. On metoprolol succinate and Xarelto. Metoprolol dose increased to 100 mg twice daily. Also digoxin added. Last admission diltiazem was stopped because of pause and bradycardia Cardiology on board c/w xarelto Acute on chronic CHFpEF Reduced right ventricular function Diuresed with IV diuretics DVT ruled out by venous duplex. Strict input and output. Daily weights. Diuretics changed back to home dose. Obstructive sleep apnea Could not tolerate CPAP as per patient Uses oxygen 2 to 3 L on most nights as per patient History of CAD On beta-stef and Xarelto Morbid obesity: counselled. DVT prophylaxis Xarelto Disposition telemetry floor Full code dispolikely tomorrow. (2) Atrial fibrillation with rapid ventricular response: Admission and Anticipated Discharge Date Admission Date: February 11, 2023 Subjective Patient seen and examined at bedside. He is lying on the bed comfortably; not in any distress. No overnight events. Reports feeling "blah" but has no specific complaints. Physical Exam Physical Exam: Constitutional: Alert orient x3; not in distress. Morbidly obese. Respiratory: Bilateral vesicular breath sound. Cardiovascular: Irregular, no murmur, no edema Vessels: no JVD or carotid bruit Chest: normal inspection of chest Abdomen: normal bowel sounds, soft, nontender, no hepatosplenomegaly Musculoskeletal: no cyanosis or clubbing, extremities motor strength 5/5. trace edema present. Left shoulder has overlying erythema -- appears almost cleared. Range of motion improved. Left knee slightly more swollen than right. No overlying erythema or tenderness. Skin: no rashes, warm and dry normal turgor Neurologic: PERRL, EOMI, accommodation nl, no face palsy, no dysarthria CN's II- XI intact bilaterally and moves all extremities Psychiatric: A+Ox3, euthymic affect Results & Data Results & Data Vital Signs (Past 12 Hours) Vital Signs Temp Pulse Resp BP Pulse Ox O2 Del Method 02/20/23 15:41 36.7 C 104 H 19 108/74 96 Room Air 02/20/23 11:44 36.6 C 73 19 100/66 92 Room Air 02/20/23 08:00 Room Air 02/20/23 07:58 36.5 C 77 18 99/57 L 92 Room Air
[2023-02-20] MEDS: RIVAROXABAN 20 MG TAB PO SCH (18:42)
[2023-02-20] MEDS: FERROUS SULFATE 325 MG TAB PO SCH (20:29)
[2023-02-20] MEDS: HYDROmorphone INJ 0.5 MG/0.5 ML SYR IV PRN (21:54)
[2023-02-21] MEDS: GABAPENTIN 300 MG CAP PO SCH (08:53)
[2023-02-21] MEDS: ADVANCED PROBIOTIC 1250 MG CAPSULE PO SCH (08:53)
[2023-02-21] MEDS: FLUoxetine HCL 10 MG CAP PO SCH (08:54)
[2023-02-21] MEDS: MAGNESIUM OXIDE 400 MG TAB PO SCH (08:55)
[2023-02-21] MEDS: SPIRONOLACTONE 25 MG TAB PO SCH (08:55)
[2023-02-21] MEDS: METOPROLOL SUCC 50MG EXT REL TAB PO SCH (08:55)
[2023-02-21] MEDS: TORSEMIDE 10 MG TAB PO SCH (08:56)
[2023-02-21] MEDS: cefTRIAXone SODIUM 2,000 MG in DEXTROSE 5% 50 ML IV SCH (12:28)
[2023-02-21] MEDS: oxyCODONE HCL IR 5 MG TAB (IMMEDIATE RELEASE) PO PRN (12:31)
--- NOTE | 2023-02-21 13:04 | Discharge Summary ---
Date of Service February 21, 2023 Admission HPI Per Admitting Provider 62-year-old male with past medical significant for hypothyroidism, atrial fibrillation, hypertension, morbid obesity, s/p gastric bypass, CHF, obstructive sleep apnea could not tolerate CPAP currently uses oxygen on most nights as per patient, GERD, history of CAD, history of osteomyelitis and discitis at L2-L3 in 2021 and epidural abscess requiring 1 month stay in [facility] and had rehab comes with neck pain radiating to shoulders and back since last Wednesday. Sometimes pain radiating to the right arm. Strength is okay. No bowel or bladder incontinence. No loss of sensation. Today had some pain while ambulating. Denies any fevers. Had some chest pain yesterday but currently no chest pain. Denies any shortness of breath. No headache. No blurred visions. No earache or runny nose or sore throat. No cough. Appetite is okay. No dysphagia. No nausea or abdominal pain. Normal bowel and bladder movements .Patient was in rapid A-fib in the ER requiring IV Lopressor. Patient could not lay flat for th e MRI scan and final able to do MRI cervical spine but which was not a good study. Patient says he will try MRI scan again in the morning. Past medical history as mentioned above Past surgical history IR aspiration of the abscess, s/p cardiac cath at [facility] 2013 with 50% LAD and 40% RCA as per records, s/p cystoscopy with right uteroscopy, laser lithotripsy and basket stone extraction. S/p gastric bypass for obesity. Social history no smoking. Alcohol occasional. No drug use. Admission Exam Per Admitting Provider General- Not in distress Head- atraumatic Eyes- PERRL,c ENT- oropharynx clear Neck- supple, no JVD,. Lungs- clear to auscultation, no wheezing or crackles. Heart- irregular rate and rhythm; Tachycardia no murmur, no gallop. Abdomen- normal bowel sounds, soft, nontender, no distension. Extremities- bilateral lower extremity edema present rt leg> left leg. Rt leg erythematous. Neuro- alert, oriented x 3; PERRL, EOMI; no facial palsy; no dysarthria; motor 5/5 bilaterally; sensations intact. Principal Diagnosis Group B beta strep bacteremia Left shoulder cellulitis Acute on chronic HFpEF Discharge Exam Constitutional: Alert orient x3; not in distress. Morbidly obese. Respiratory: Bilateral vesicular breath sound. Cardiovascular: Irregular, no murmur, no edema Vessels: no JVD or carotid bruit Chest: normal inspection of chest Abdomen: normal bowel sounds, soft, nontender, no hepatosplenomegaly Musculoskeletal: no cyanosis or clubbing, extremities motor strength 5/5. trace edema present. Left shoulder has overlying erythema -- appears almost cleared. Range of motion improved. Left knee slightly more swollen than right. No overlying erythema or tenderness. Skin: no rashes, warm and dry normal turgor Neurologic: PERRL, EOMI, accommodation nl, no face palsy, no dysarthria CN's II- XI intact bilaterally and moves all extremities Psychiatric: A+Ox3, euthymic affect Discharge Data Allergies Allergy/AdvReac Type Severity Reaction Status Date / Time No Known Allergies Allergy ` Verified 02/11/23 20:29 Consultations 02/11/23 21:20 ED Decision to Admit Stat 02/12/23 08:00 Consult Cardiology Routine Consult Orthopedic Spine Surgery Routine 02/12/23 13:13 Consult Infectious Diseases Routine 02/13/23 08:57 Consult Orthopedic Surgery Routine Ordered Studies 02/11/23 16:48 MR cervical spine wo con Stat 02/12/23 00:27 US venous doppler LE BI Routine 02/12/23 11:31 CT cervical spine w con Urgent CT lumbar spine w con Urgent CT thoracic spine w con Urgent 02/13/23 08:54 CT shoulder LT w con Urgent Hospital Course (1) Back pain: 62-year-old male with past medical significant for hypothyroidism, atrial fibrillation, hypertension, morbid obesity, s/p gastric bypass, CHF, obstructive sleep apnea could not tolerate CPAP currently uses oxygen on most nights as per patient, GERD, history of CAD, history of osteomyelitis and discitis at L2-L3 in 2021 and epidural abscess requiring 1 month stay in [facility] and and rehab comes with neck pain radiating to shoulders and back since last Wednesday. Group B beta strep bacteremia Hx of discitis and epidural abscess in 2021 left Shoulder cellulitis Presents to the hospital with shoulder pain and generalized weakness since last 6 days Afebrile, normotensive. In atrial fibrillation blood culture on admission positive for group B beta strep. Cervical, thoracic and lumbar CT chest no acute abnormality/no evidence of epidural abscess. MRI was not able to be done due to difficulty lying down. ESR minimally elevated to 24 CT of the left shoulder did not show any concerns of septic arthritis. Mild soft tissue edema present. Echocardiogram shows EF of 60 to 65%; no vegetation reported. Similar echo compared to his echocardiogram from November 2022 Continue on ceftriaxone. Repeat blood culture negative so far. The likely source of bacteremia is episode of cellulitis. ID evaled -recommended 4 weeks of IV ceftriaxone. c/w rocephin, TTE in 4 weeks. Pt has been made aware. A-fib with RVR On presentation; presented with A-fib with RVR. On metoprolol succinate and Xarelto. Metoprolol dose increased to 100 mg twice daily. Also digoxin added. Last admission diltiazem was stopped because of pause and bradycardia Cardiology on board c/w xarelto Acute on chronic CHFpEF Reduced right ventricular function Diuresed with IV diuretics DVT ruled out by venous duplex. Strict input and output. Daily weights. Diuretics changed back to home dose. Obstructive sleep apnea Could not tolerate CPAP as per patient Uses oxygen 2 to 3 L on most nights as per patient History of CAD On beta-stef and Xarelto Morbid obesity: counselled. DVT prophylaxis Xarelto Disposition telemetry floor Full code Patient is being discharged home with home health with following instruction at the point of discharge: Follow-up with your primary care physician within a week time and likely you will need labs CBC/CMP/magnesium/phosphorus. for your bacteremia, you are being discharged on total of 4 weeks of IV antibiotic. You will need a repeat echo done in 4 weeks time upon discharge, coordinate with the PCP office to set up the test. Follow-up with your cardiology in 2 to 4 weeks time. For your A-fib with RVR, your metoprolol dose has been increased to 100 mg twice a day and digoxin has been added. Take your medications as prescribed. Please make sure that you are able to get your medications today by calling your pharmacy before you leave the hospital so that your treatment continuity is not broken. (2) Atrial fibrillation with rapid ventricular response: Home Health Attestation I certify that this patient is under my care and that I, or a physicians hr assistant working with me, had a face to-face encounter that meets the home health oici-ic-undy encounter requirements with this patient. The encounter with the patient was in whole, or in part, for the following medical condition, which is the primary reason for home health care (list medical condition): bacteremia- back pain- rapid afib I certify that, based on my findings, the following services are medically necessary home health services: My clinical findings support the need for the above services because: OT Assess ADL Status and Restore Function w ADLs PT Assessment for Endurance / Balance / Strength PT Eval for Safety and Mobility PT Eval for Safety, Gait Training, Assistive Devices PT Gait and Balance Training, Strengthening and Safety Skilled Nsg Assessment Skilled Nsg Instruction New Medications Further, I certify that my clinical findings support that this patient is homebound (i.e. absences from home require considerable and taxing effort and are for medical reasons or anabaptism services or infrequently or of short duration when for other reasons) because: Supportive Aid - Walker Transportation Assistance/Unable to Leave Home Unassisted Certification for Home Health Services: Based on the above findings, I certify that this patient is confined to the home and needs intermittent residential care, physical therapy and/or speech therapy or continues to need occupational therapy. The patient is under my care, and I have initiated the establishment of the plan of care. This patient will be followed by a physician who will periodically review the plan of care. Total Time Total Time Spent Total Time Spent (In Minutes): 35 Discharge Plan Discharge Items Patient Disposition: Home - Home Health Services Reason For Visit: BACK PAIN, RAPID A FIB Discharge Diagnosis: Group B beta strep bacteremia Left shoulder cellulitis Acute on chronic HFpEF Activity: Resume your previous activity Non-emergency contact: Primary Care Provider Call non-emergency contact if: you have any medication questions, your symptoms worsen and your temperature is above 101 Follow-up/Referrals: Sandi Roman [Primary Care Provider] - Diet: Heart Healthy and Low Sodium (2gm) Addtl Attending Provider Instructions: Follow-up with your primary care physician within a week time and likely you will need labs CBC/CMP/magnesium/phosphorus. for your bacteremia, you are being discharged on total of 4 weeks of IV antibiotic. You will need a repeat echo done in 4 weeks time upon discharge, coordinate with the PCP office to set up the test. Follow-up with your cardiology in 2 to 4 weeks time. For your A-fib with RVR, your metoprolol dose has been increased to 100 mg twice a day and digoxin has been added. Take your medications as prescribed. Please make sure that you are able to get your medications today by calling your pharmacy before you leave the hospital so that your treatment continuity is not broken. Pending Studies at Discharge: Yes Stand-Alone Forms: My [facility], Smoking Cessation Medications and DC Order Prescriptions: New metoprolol succinate 100 mg tablet extended release 24 hr 100 mg PO BID Qty: 60 0RF digoxin [Digitek] 125 mcg (0.125 mg) Tablet 0.125 mg PO DAILY@1600 Qty: 30 0RF oxycodone 5 mg Tablet 5 mg PO Q6H PRN (Reason: severe pain (scale score 7-10)) Qty: 20 0RF Advanced Probiotic 625 mg (10 billion cell) Capsule 2 cap PO DAILY 28 Days Qty: 56 0RF ceftriaxone 1 gram recon soln 2 g IV DAILY Qty: 10 0RF Rx Instructions: total of 4 week therapy, prescription has been provided. Continued ferrous sulfate [iron] 325 mg (65 mg iron) Tablet 325 mg PO QPM Xarelto 20 mg Tablet 20 mg PO QPM magnesium oxide 400 mg magnesium Tablet 400 mg PO BID meloxicam 15 mg tablet 15 mg PO DAILY PRN (Reason: arthritis) trazodone 50 mg Tablet 150 mg PO QDD PRN (Reason: Sleep) Qty: 15 0RF Rx Instructions: take at suppertime as needed ergocalciferol (vitamin D2) [Vitamin D2] 50,000 unit Capsule 50,000 unit PO WK Qty: 4 0RF Rx Instructions: TAKE ON WEDNESDAY torsemide 20 mg tablet 20 mg PO QAM tolnaftate 1 % powder 1 applic TOPICAL BID cyclobenzaprine 10 mg tablet 10 mg PO HS PRN (Reason: Muscle Spasm) diclofenac sodium 1 % Gel 2 g TOPICAL QID PRN (Reason: Pain) Qty: 100 0RF Rx Instructions: knees fluoxetine 10 mg capsule 10 mg PO DAILY tramadol 50 mg tablet 50 mg PO BID PRN (Reason: Pain) gabapentin 300 mg capsule 600 mg PO [facility] spironolactone 25 mg Tablet 25 mg PO QAM Qty: 30 0RF Discontinued metoprolol succinate 50 mg Tablet Extended Release 24 Hr 50 mg PO BID Qty: 60 0RF Discharge Orders: Discharge Order (Routine); Ordered 02/21/23 Ordered By: Vishal Vu Admission Data Admit Date/Time: 02/11/23 23:30 Attending Provider: Vishal Vu Admit Provider: Shakir Smith Primary Care Provider: Sandi Roman Other Providers: Shakir Smith ; Demteris Goff ; Bridger Graham ; Mansi Aguayo ; Wilman Paz I. ; Torsten Malloy II ; Estefanía Burkett ; Derrell Domingo ; Hilario Lozano ; Sourav Lopez ; Mitchell Fontaine ; Brinda [facility] ; [place],[facility] ; [facility]
--- OUTSIDE RECORDS SUMMARY | 2023-02-21 17:46 | External Medical Summary | Summary of Care ---
Author Name Unknown Organization [place] [address] Care Team Providers Care Jewel Sorter Name Role Phone Lanette Roman MD Primary Care Provider [phone] Encounter Details Date Type Department Care Team Description 12/02/2021 Orders Only Infectious Disease, [place] [address] [place] [address] Hilario Lozano, [address] [place] [address] Allergies No known active allergiesdocumented as of this encounter (statuses as of 12/02/2021) Medications Medication Sig Dispensed Refills Start Date End Date Status escitalopram (LEXAPRO) 10 MG Tablet Take 10 mg by mouth daily. 0 Active levothyroxine (SYNTHROID) 50 MCG Tablet Take 50 mcg by mouth daily first thing in the morning. (at least 30 min prior to breakfast or other meds) 0 Active pantoprazole (PROTONIX) 40 MG Pack Take 40 mg by mouth daily. 0 Active furosemide (LASIX) 40 MG Tablet Take 1 Tab by mouth daily. 90 Tab 3 08/03/2017 Active rivaroxaban (XARELTO) 20 MG Tablet Take 1 Tab by mouth daily with dinner. 0 11/16/2017 Active DilTIAZem HCl ER Beads 240 MG [id number]:Chron ic atrial fibrillation (HCC) TAKE ONE CAPSULE BY MOUTH DAILY 90 Cap 3 06/08/2018 Active Klor-Con M20 20 MEQ Oral Tablet Extended Release (Potassium Chloride Radha ER)Indications:Atrial fibrillation (HCC) TAKE 1 TABLET BY MOUTH EVERY DAY 90 Tab 3 03/25/2021 Active Metoprolol Succinate ER 100 MG Oral Tablet Extended Release 24 Hour (toPROL XL) Take by mouth 1 Tablet in the morning AND 1 Tablet before bedtime. 60 Tablet 1 10/10/2021 Active documented as of this encounter (statuses as of 12/02/2021) Active Problems Problem Noted Date Gastroesophageal reflux disease without esophagitis 10/04/2021 Vertebral osteomyelitis 09/30/2021 Epidural abscess 09/30/2021 HTN, goal below 140/90 04/13/2017 Obesity, morbid (more than 100 lbs over ideal weight or BMI > 40) 04/13/2017 Hypothyroidism 04/13/2017 Atrial fibrillation 04/05/2017 documented as of this encounter (statuses as of 12/02/2021) Social History Tobacco Use Types Packs/Day Years Used Date Former Smoker Smokeless Tobacco: Never Used Alcohol Use Standard Drinks/Week Comments Yes 0 (1 standard drink = 0.6 oz pur e alcohol) rarely Alcohol Habits Answer Date Recorded How often do you have a drink containing alcohol ? Not asked How many drinks containing a lcohol do you have on a typical day when you are drinking? Not asked How often do you have six or more drinks on one occasion? Not asked Comment: rarely 04/09/2017 Sex Assigned at Date Recorded Not on file Job Start Date Occupation Industry Not on file Not on file Not on file documented as of this encounter Functional Status Functional Status Response Date of Assess ment Are you deaf or do you have serious difficulty h earing? No 09/29/2021 Are you blind or do you have serious difficulty seeing, even when wearing glasses? No 09/29/2021 Do you have serious difficul ty walking or climbing stairs? (5 years old or older) Yes 09/29/2021 Do you have difficulty dress ing or bathing? (5 years old or older) No 09/29/2021 Because of a physical, menta l, or emotional condition, do you have difficulty doing errands alone such as visiting a doctor s office or shopping? (15 years old or older) Yes 09/30/19 Cognitive Status Response Date of Assessm ent Because of a physical, menta l, or emotional condition, do you have serious difficulty concentrating, remembering, or making decisions? (5 years old or older No 09/29/2021 documented as of this encounter Plan of Treatment Upcoming Encounters Date Type Specialty Care Team Description 12/11/2021 Imaging Radiology 12/23/2021 Office Visit Neurological Surgery Owen Washington PA-C [address] [facility] [place] [id number] Health Maintenance Due Date Last Done Comments COVID-19 Vaccine (#1) 1965 Depression Screening, Annual for Pts 12 and Over 1972 DTaP,Tdap,and Td Vaccines (1 - Tdap) 1979 Cologuard: Ages 45-75 2005 Colonoscopy: Ages 45-75 2005 Sigmoidoscopy: Ages 45-75 2005 Colorectal Cancer Screening (Colonoscopy 10 Years; Sigmoidoscopy 5 Years; Cologuard 3 Years; FOBT 1 Year): Ages 45-75 10/26/2008 FOBT: Ages 45-75 10/26/2008 10/27/2007 Zoster Vaccines (1 of 2) 2010 LIPID SCREEN EVERY 5 YRS-MEN AGE 35-75 05/13/2015 05/13/2010, 01/17/2009, 10/26/2007 *URINE ALBUMIN/CREATININE RATIO ONCE FOR HTN 04/17/2017 Influenza Vaccine (FLU shot) (Season Ended) 2022 03/29/2017 TSH FOR THYROID MEDICATION MONITORING YEARLY 10/15/2022 10/15/2021, 10/26/2007 BASIC METABOLIC PANEL (BMP) FOR HTN YEARLY 12/01/2022 12/01/2021, 12/01/2021, 11/24/2021, Additional history exists DIABETES SCREEN EVERY 3 YRS-AGE 45 AND ABOVE 12/01/2024 12/01/2021, 12/01/2021, 11/24/2021, Additional history exists GARDASIL-HPV IMMUNIZATION SERIES Aged Out No longer eligible based on patient's age to complete this topic MENINGOCOCCAL (MENACTRA/MENVEO) Aged Out No longer eligible based on patient's age to complete this topic Pneumococcal Vaccine: Pediatrics (0 to 5 Years) and At-Risk Patients (6 to 64 Years) Aged Out No longer eligible based on patient's age to complete this topic documented as of this encounter Implants Not on filedocumented as of this encounter Procedures Procedure Name Priority Date/Time Associated Diagnosis Comments CHEMISTRY-OUTSIDE Routine 12/01/2021 documented in this encounter Results * (ABNORMAL) CHEMISTRY-OUTSIDE (12/01/2021) CREATININE-OUTSIDE LAB 0.77 0.70 - 1.30 MG/DL OUTSIDE LAB (SEE SCANNED REPORT) EGFR-OUTSIDE LAB >60 >=60 ML/MIN/1.73M2 OUTSIDE LAB (SEE SCANNED REPORT) POTASSIUM-OUTSIDE LAB 3.9 3.5 - 5.1 MMOL/L OUTSIDE LAB (SEE SCANNED REPORT) GLUCOSE-OUTSIDE LAB 79 70 - 110 MG/DL OUTSID E LAB (SEE SCANNED REPORT) HOURS FASTING OUTSIDE LAB (S EE SCANNED REPORT) TRIGLYCERIDES-OUTSIDE LAB OUTSIDE LAB (SEE SCANNED REPORT) CHOLESTEROL-OUTSIDE LAB OUTSIDE LAB (SEE SCANNED REPORT) HDL-OUTSIDE LAB OUTSIDE LAB (SEE SCANNED REPORT) CHOL/HDL RATIO-OUTSIDE LAB OUTSIDE LAB (SEE SCANNED REPORT) LDL (CALCULATED)-OUTSIDE LAB OUTSIDE LAB (SEE SCANNED REPORT) LDL (DIRECT MEASURE)-OUTSIDE LAB OUTSIDE LAB (SEE SCANNED REPORT) HEMOGLOBIN, [id number] LAB OUTSIDE LAB (SEE SCANNED REPORT) PHOSPHORUS-OUTSIDE LAB OUTSIDE LAB (SEE SCANNED REPORT) PTH-OUTSIDE LAB OUTSIDE LAB (SEE SCANNED REPORT) MICROALBUMIN RATIO-OUTSIDE LAB OUTSIDE LAB (SEE SCANNED REPORT) PROTEIN, UA-OUTSIDE LAB OUTSIDE LAB (SEE SCANNED REPORT) HEMOGLOBIN-OUTSIDE LAB 13.4(L) 13.5 - 18.0 GMD/L OUTSIDE LAB (SEE SCANNED REPORT) CHEMISTRY COMMENT-OUTSIDE LAB Comment:SEE SCAN; CBCD, CMP, CRP OUTSIDE LAB (SEE SCANNED REPORT) Specimen Narrative OUTSIDE LAB (SEE SCANNED REPORT) documented in this encounter Advance Directives Documents on File Type Date Recorded Patient Hydrogen Cell Tender Expl anation Advanced Directive Advanced Directive Advanced Directive Advanced Directive Advanced Directive Advanced Directive Advanced Directive Advanced Directive Advanced Directive Advanced Directive Advanced Directive Advanced Directive Advanced Directive Advanced Directive Advanced Directive Advanced Directive Advanced Directive Advanced Directive Advanced Directive Advanced Directive Advanced Directive Advanced Directive Advanced Directive Advanced Directive Advanced Directive Advanced Directive 09/30/2021 2:41 PM Latest Code Status on File Code Status Date Activated Date Inactivated Comments Full Code 09/29/2021 11:36 PM 10/10/2021 7:31 PM This order reflects the patients wishes and were consensually agreed upon. Discussion of Advance Directives occurred with: Patient Full Code 09/29/2021 11:12 PM 09/29/2021 11:12 PM Thi s order reflects the patients wishes and were consensually agreed upon. Care Teams Jewel Sorter Relationship Specialty Start Date End Date Lanette Roman MD [address] [place] [address] [place] [id number] PCP - General 12/26/05 documented as of this encounter
--- OUTSIDE RECORDS SUMMARY | 2023-02-21 17:46 | External Medical Summary | Summary of Care ---
Author Name Unknown Organization [place] [address] Care Team Providers Care Hydro Sprayer Operator Name Role Phone Lanette Roman MD Primary Care Provider [phone] [phone] Encounter Details Date Type Department Care Team Description 12/16/2021 Telephone Infectious Disease, [place] [address] [place] [address] Hilario Lozano, [address] [place] [address] Allergies No known active allergiesdocumented as of this encounter (statuses as of 12/17/2021) Medications Medication Sig Dispensed Refills Start Date [...] Active DilTIAZem HCl ER Beads 240 MG [id number]:Chron ic atrial fibrillation (HCC) TAKE ONE CAPSULE [...] as of this encounter (statuses as of 12/17/2021) Active Problems Problem Noted Date Gastroesophageal reflux disease without esophagitis 10/04/2021 Vertebral osteomyelitis 09/30/2021 Epidural abscess 09/30/2021 HTN, goal below 140/90 04/13/2017 Obesity, morbid (more than 100 lbs over ideal weight or BMI > 40) 04/13/2017 Hypothyroidism 04/13/2017 Atrial fibrillation 04/05/2017 documented as of this encounter (statuses as of 12/17/2021) Social History Tobacco Use Types Packs/Day Years [...] No 09/29/2021 documented as of this encounter Miscellaneous Notes * Telephone Encounter - Jolanta Moran LPN - 12/17/2021 8:09 AM EDT [facility] and order to pull line given per OPAT note (Verbal order read back) Jolanta Moran LPN Nurse Navigator ID * Telephone Encounter - Jolanta Moran LPN - 12/16/2021 4:10 PM EDT Pt due to end IV Abx 12/18/2021. Please review recent MRI and advise on EOT plan. Thanks! Jolanta Moran LPN Nurse Navigator ID documented in this encounter Plan of Treatment Upcoming Encounters Date Type Specialty Care Team Description 12/23/2021 Office Visit Neurological Surgery Owen Washington PA-C [address] [place] [address] Health Maintenance Due Date Last Done Comments COVID-19 Vaccine (#1) 1960 Depression Screening, Annual for Pts 12 and [...] FOR HTN 04/17/2017 Influenza Vaccine (FLU shot) (#1) 2022 03/29/2017 TSH FOR THYROID MEDICATION MONITORING YEARLY 10/15/2022 10/15/2021, 10/26/2007 BASIC METABOLIC PANEL (BMP) FOR HTN YEARLY 12/08/2022 12/08/2021, 12/01/2021, 12/01/2021, Additional history exists DIABETES SCREEN EVERY 3 YRS-AGE 45 AND ABOVE 12/08/2024 12/08/2021, 12/01/2021, 12/01/2021, Additional history exists GARDASIL-HPV IMMUNIZATION SERIES Aged [...] Not on filedocumented as of this encounter Advance Directives Documents on File Type Date Recorded Patient Data Analysis Assistant Expl anation Advanced Directive Advanced Directive Advanced [...] and were consensually agreed upon. Care Teams Hydro Sprayer Operator Relationship Specialty Start Date End Date Lanette Roman MD [address] [place] [address] NOAH YOUNG [id number] PCP - General 12/26/05 documented as of this encounter
--- OUTSIDE RECORDS SUMMARY | 2023-02-21 17:46 | External Medical Summary | Summary of Care ---
Author Name Unknown Organization [place] [address] Care Team Providers Care Lining Marker Name Role Phone Lanette Roman MD Primary Care Provider [phone] [phone] Encounter Details Date Type Department Care Team Description 12/16/2021 Telephone Infectious Disease, [place] [address] [place] [address] Hilario Lozano, [address] [place] [address] Allergies No known active allergiesdocumented as of this encounter (statuses as of 12/22/2021) Medications Medication Sig Dispensed Refills Start Date [...] Active DilTIAZem HCl ER Beads 240 MG [id number]:Chron ic atrial fibrillation (HCC) TAKE ONE CAPSULE [...] as of this encounter (statuses as of 12/22/2021) Active Problems Problem Noted Date Gastroesophageal reflux disease without esophagitis 10/04/2021 Vertebral osteomyelitis 09/30/2021 Epidural abscess 09/30/2021 HTN, goal below 140/90 04/13/2017 Obesity, morbid (more than 100 lbs over ideal weight or BMI > 40) 04/13/2017 Hypothyroidism 04/13/2017 Atrial fibrillation 04/05/2017 documented as of this encounter (statuses as of 12/22/2021) Social History Tobacco Use Types Packs/Day Years [...] Telephone Encounter - Jolanta Moran LPN - 12/19/2021 3:46 PM EDT Pt aware of Rx [facility]. Jolanta Moran LPN Nurse Navigator ID * Telephone Encounter - Jolanta Moran LPN - 12/17/2021 8:09 AM EDT Keagan @ [facility] made aware of EOT date and order [...] documented in this encounter Plan of Treatment Health Maintenance Due Date Last Done Comments [...] 10/27/2007 Zoster Vaccines (1 of 2) 2010 Lipid Panel 05/13/2015 05/13/2010, 0811/2008, 10/26/2007 *URINE ALBUMIN/CREATININE RATIO ONCE FOR HTN 04/17/2017 Influenza Vaccine (FLU shot) (#1) 2022 03/29/2017 TSH FOR THYROID MEDICATION MONITORING YEARLY 10/15/2022 10/15/2021, 10/26/2007 GFR - Renal Function 12/17/2022 12/17/2021, 12/08/2021, 12/01/2021, Additional history exists Diabetes Screening 12/17/2024 12/17/2021, 0 12/08/2021, 12/01/2021, Additional history exists GARDASIL-HPV IMMUNIZATION SERIES [...] Documents on File Type Date Recorded Patient Lock Plater Expl anation Advanced Directive Advanced Directive Advanced [...] and were consensually agreed upon. Care Teams Lining Marker Relationship Specialty Start Date End Date Lanette Roman MD [address] [place] [address] NOAH YOUNG [id number] PCP - General 12/26/05 documented as of this encounter
--- OUTSIDE RECORDS SUMMARY | 2023-02-21 17:46 | External Medical Summary | Summary of Care ---
Author Name Unknown Organization [place] [address] Care Team Providers Care Rinkman Name Role Phone Lanette Roman MD Primary Care Provider [phone] [phone] Encounter Details Date Type Department Care Team Description 11/24/2021 Result Scan Unspecified Department <No scans attached> Allergies No known active allergiesdocumented as of this encounter (statuses as of 12/04/2021) Medications Medication Sig Dispensed Refills Start Date [...] Active DilTIAZem HCl ER Beads 240 MG [id number]:Chron ic atrial fibrillation (HCC) TAKE ONE CAPSULE [...] as of this encounter (statuses as of 12/04/2021) Active Problems Problem Noted Date Gastroesophageal reflux disease without esophagitis 10/04/2021 Vertebral osteomyelitis 09/30/2021 Epidural abscess 09/30/2021 HTN, goal below 140/90 04/13/2017 Obesity, morbid (more than 100 lbs over ideal weight or BMI > 40) 04/13/2017 Hypothyroidism 04/13/2017 Atrial fibrillation 04/05/2017 documented as of this encounter (statuses as of 12/04/2021) Social History Tobacco Use Types Packs/Day Years [...] Visit Neurological Surgery Owen Washington PA-C [address] [place] [address] Health Maintenance Due Date Last Done Comments [...] Procedure Name Priority Date/Time Associated Diagnosis Comments OUTSIDE LAB RESULTS 11/24/2021 documented in this encounter Results * OUTSIDE LAB RESULTS (11/24/2021) Specimen Narrative documented in this encounter Advance Directives Documents on File Type Date Recorded Patient Glass Tube Bender Expl anation Advanced Directive Advanced Directive Advanced [...] and were consensually agreed upon. Care Teams Rinkman Relationship Specialty Start Date End Date Lanette Roman MD [address] [place] [address] NOAH YOUNG [id number] PCP - General 12/26/05 documented as of this encounter
--- OUTSIDE RECORDS SUMMARY | 2023-02-21 17:46 | External Medical Summary | Summary of Care ---
Author Name Unknown Organization [facility] Address [address] [place] [address] Phone [phone] Care Team Providers Care Collateral Specialist Name Role Phone Lanette Roman MD Primary Care Provider [phone] [phone] Encounter Details Date Type Department Care Team Description 12/01/2022 Emergency Telemedicine IP Allergies No known active allergiesdocumented as of this encounter (statuses as of 12/02/2022) Medications Medication Sig Dispensed Refills Start Date [...] Active DilTIAZem HCl ER Beads 240 MG [id number]:Chron ic atrial fibrillation (HCC) TAKE ONE CAPSULE [...] as of this encounter (statuses as of 12/02/2022) Active Problems Problem Noted Date Gastroesophageal reflux disease without esophagitis 10/04/2021 Vertebral osteomyelitis 09/30/2021 Epidural abscess 09/30/2021 HTN, goal below 140/90 04/13/2017 Obesity, morbid (more than 100 lbs over ideal weight or BMI > 40) 04/13/2017 Hypothyroidism 04/13/2017 Atrial fibrillation 04/05/2017 documented as of this encounter (statuses as of 12/02/2022) Immunizations Name Administration Dates Next Due Seasonal Influenza, Quadriva lent, No Preserve, 6 Mons & Above, IM 04/18/2022 documented as of this encounter Social History Tobacco Use Types Packs/Day Years Used Date Smoking Tobacco: Former Smokeless Tobacco: Never Alcohol Use Standard Drinks/Week Comments Yes 0 (1 standard drink = 0.6 oz pur e alcohol) rarely Sex Assigned at Date Recorded Not on [...] No 09/29/2021 documented as of this encounter Consult Notes * Sourav Lopez MD - 12/01/2022 9:33 AM EDT CONSULT - Infectious Disease TELEHEALTH IP Name: Anton Mckeeied Location: MAIN IP TELEMEDICINE/Tel* Date: 12/01/2022 Time: 9:33 AM REQUESTING SERVICE: [facility] Hospitalist REASON FOR CONSULT: Discitis on Ampicillin Patient location: HOSPITAL. I was not in a hospital or clinic location. After connecting through [employer], patient was identified by name and date of and/or wristband checked. Patient (or authorized legal patient admitting representative) was then informed that this was a Telemedicine visit and was being conducted confidentially over secure lines. My office door was closed. No one else was in the room with me.. Patient acknowledged consent and understanding of privacy and security of the Telemedicine visit and gave permission to have a telemedicine presenter stay in the room in order to assist with the history and to conduct the exam as needed. I informed the patient that I have reviewed their record in [employer] and presented the opportunity for them to ask any questions regarding the visit today. The patient agreed to participate. HPI: Mr. Alston is a 62-year-old man with medical history of HTN, CAD, morbid obesity (status post gastric bypass), hypothyroidism, persistent atrial fibrillation, heart failure with preserved ejectionfraction, obstructive sleep apnea and osteomyelitis/discitis L2/L3 in 2021 who was admitted to [facility] on 11/30 because of progressive shortness of breath. He was also having worsening lower extremity edema and currently being managed for exacerbation of heart failure. The patient was seen by our team in early September 2021 while still at [facility] for Enterococcus bacteremia and was then found to have lumbar discitis/osteomyelitis with paraspinal abscess. At that time, biopsy/drainage of the discitis and paraspinal abscess was attempted on 10/01/2021 and 10/03/2021 blood cultures growing no organisms. We recommended treatment for a total duration of 6 to 8weeks with IV ampicillin, followed after that with repeat MRI (especially that no neurosurgical intervention was performed). We saw him again via telemed (on 11/17/2021) after he completed the IV ampicillin on 11/14 and we recommended a repeat MRI. Repeat MRI was performed on 12/11 which demonstrated chronic discitis-osteomyelitis at L2-L3 with decrease in size in the paravertebral/psoas abscesses. Therefore, we decided to stop antibiotics. However, shortly after, he was prescribed oral ampicillin by his family medicine which has has been taking for almost a year now. During today's encounter, he mentioned that he has mild back pain from time to time. No fever or chills. ALLERGIES: Patient has no known allergies. PAST MEDICAL HISTORY: Past Medical History: Diagnosis Date A-fib (HCC) HTN (hypertension) Hypothyroid PAST SURGICAL HISTORY: Past Surgical History: Procedure Laterality Date ANESTHESIA FOR CAT OR MRI SCAN N/A 10/02/2021 ANESTHESIA FOR NON-INVASIVE IMAGING (MRI OR CT) performed by [facility] [place] [facility] [place] ASPIRATION ABSCESS/COLLECTION 10/03/2021 IR BIOPSY 10/01/2021 SOCIAL HISTORY: Social History Tobacco Use Smoking status: Former Smokeless tobacco: Never Vaping Use Vaping Use: Never used Substance Use Topics Alcohol use: Yes Comment: rarely Drug use: No FAMILY HISTORY and FAMILY STATUS: No family history on file. No family status information on file. ROS: Constitutional: No fatigue, no fever or chills HEENT: no sore throat, no nasal discharge Cardiovascular: no chest pain, or palpitations Respiratory: no shortness of breath, no cough Gastrointestinal: No nausea, vomiting, diarrhea or abdominal pain : No dysuria or hesitancy, no urinary discharge Musculoskeletal/Skin: mild back pain from time to time. Neurologic: no dizziness or headache PHYSICAL EXAMINATION: Most Recent Vital Signs: BP 90/61, pulse 94, RR 21, temp 36.5, SPO2 95% at room air Physical exam was not performed as the visit was conducted via Telemed. LABS: Labs reviewed. MICROBIOLOGY DATA: 09/12/2021: 2 sets of blood culture positive for Enterococcus faecalis (ampicillin susceptible) 09/13/2021: 1 set of blood culture positive for Enterococcus faecalis 10/01: IR guided biopsy culture of the discitis with no growth. 10/03: IR guided drainage of paraspinal abscess no growth IMAGING: Lumbar spine MRI from 09/28/2021: 1. The exam is markedly motion degraded and nearly nondiagnostic secondary to patient motion with decreased dvrlfr-dh-qzhbg ratio. 2. There is progressively worsened fluid signal within the L2-L3 disc space with associated progressive bone marrow and adjacent soft tissue edema. Findings are suggestive of acute discitis/osteomyelitis. 3. Evaluation for an epidural abscess is limited secondary to the aforementioned motion artifact. IMPRESSION: 1) Hx of E. faecalis L2-L3 discitis/osteomyeltits - back in 09/2021 2) HFpEF - in exacerbation RECOMMENDATIONS: - Patient was appropriately treated with around 8 weeks of IV antibiotics. No need for chronic therapy or chronic suppression. Therefore, I would recommend stopping Ampicillin. - No further management or F/U from our side. Thank you for involving us in the care of Mr. Nelson. Please contact me via [employer] page should you have any questions. documented in this encounter Plan of Treatment Health Maintenance Due Date Last Done Comments Depression Screening, Annual for Pts 12 and Over 1972 HIV Screening 1975 Albumin/Creatinine Ratio 1978 Hepatitis C Screening 1978 DTaP,Tdap,and Td Vaccines (1 - Tdap) 1979 Cologuard 2005 Colonoscopy 2005 Sigmoidoscopy 2005 Colorectal Cancer Screening 10/26/2008 Fecal Occult Blood Test 10/26/2008 10/27/2007 Zoster Vaccines (1 of 2) 2010 Lipid Panel 05/13/2015 05/13/2010, 08/0 11/2008, 10/26/2007 COVID-19 Vaccine (3 - Pfizer series) 10/29/2020 09/03/2020, 08/13/2020 TSH 10/15/2022 10/15/2021, 10/26/2007 GFR 01/14/2023 01/14/2022, 07/0 11/2021, 12/08/2021, Additional history exists Diabetes Screening 01/14/2025 01/14/2022, 0 12/17/2021, 12/08/2021, Additional history exists Influenza Vaccine (FLU shot) Completed 04/18/2022, 03/29/2017 GARDASIL-HPV IMMUNIZATION SERIES Aged Out No longer eligible based on patient's age to complete this topic Hepatitis B Aged Out No longer eligi ble based on patient's age to complete this topic MENINGOCOCCAL (MENACTRA/MENVEO) Aged Out No longer eligible based on patient's age to complete this topic Pneumococcal Vaccine: Pediatrics (0 to 5 Years) and At-Risk Patients (6 to 64 Years) Aged Out No longer eligible based on patient's age to complete this topic documented as of this encounter Medical Devices Not on filedocumented as of this encounter Advance Directives Latest Code Status on File Code Status Date Activated Date Inactivated Comments Full Code 09/29/2021 11:36 PM 10/10/2021 7:31 PM This order reflects the patients wishes and were consensually agreed upon. Question Answer Comments Discussion of Advance Directives occurred with: Patient Code Status History Code Status Date Activated Date Inactivated Comments Full Code 09/29/2021 11:12 PM 09/29/2021 11:12 PM Thi s order reflects the patients wishes and were consensually agreed upon. Care Teams Collateral Specialist Relationship Specialty Start Date End Date Lanette Roman MD [address] [place] [address] NOAH YOUNG [id number] PCP - General 12/26/05 documented as of this encounter
--- OUTSIDE RECORDS SUMMARY | 2023-02-21 17:46 | External Medical Summary | Summary of Care ---
Author Name Unknown Organization [place] [address] Care Team Providers Care City Bus Driver Name Role Phone Lanette Roman MD Primary Care Provider [phone] [phone] Encounter Details Date Type Department Care Team Description 12/16/2021 Telephone Infectious Disease, [place] [address] [place] [address] Hilario Lozano, [address] [place] [address] Allergies No known active allergiesdocumented as of this encounter (statuses as of 12/26/2021) Medications Medication Sig Dispensed Refills Start Date [...] Active DilTIAZem HCl ER Beads 240 MG [id number]:Chron ic atrial fibrillation (HCC) TAKE ONE CAPSULE [...] as of this encounter (statuses as of 12/26/2021) Active Problems Problem Noted Date Gastroesophageal reflux disease without esophagitis 10/04/2021 Vertebral osteomyelitis 09/30/2021 Epidural abscess 09/30/2021 HTN, goal below 140/90 04/13/2017 Obesity, morbid (more than 100 lbs over ideal weight or BMI > 40) 04/13/2017 Hypothyroidism 04/13/2017 Atrial fibrillation 04/05/2017 documented as of this encounter (statuses as of 12/26/2021) Social History Tobacco Use Types Packs/Day Years [...] encounter Miscellaneous Notes * Telephone Encounter - PHYLLIS Cope - 12/26/2021 9:49 AM EDT Patient verified identity by spelling of last name and date. Outgoing call placed to the patient at [phone] Touched base with the patient, who said he is not currently having any neurological changes. Wants to hold off on the appointment until fall, declined scheduling while I had him on the line. Patient cancelled the appointment due to the cost of paying transportation to get to the appointment * Telephone Encounter - Jolanta Moran LPN - 12/19/2021 3:46 PM EDT Pt aware [facility] Jolanta Moran LPN Nurse Navigator ID * Telephone Encounter - Jolanta Moran LPN - 12/17/2021 8:09 AM EDT Keagan @ [facility] made aware of EOT date [...] of 2) 2010 Lipid Panel 05/13/2015 05/13/2010, 08/11/2008, 10/26/2007 *URINE ALBUMIN/CREATININE RATIO ONCE FOR HTN [...] Documents on File Type Date Recorded Patient Basketball Referee Expl anation Advanced Directive Advanced Directive Advanced [...] and were consensually agreed upon. Care Teams City Bus Driver Relationship Specialty Start Date End Date Lanette Roman MD [address] [place] [address] NOAH YOUNG [address] PCP - General 12/26/05 documented as of this encounter
--- OUTSIDE RECORDS SUMMARY | 2023-02-21 17:46 | External Medical Summary | Summary of Care ---
Author Name Unknown Organization [place] [address] Care Team Providers Care Chief Arson Division Name Role Phone Lanette Roman MD Primary Care Provider [phone] [phone] Encounter Details Date Type Department Care Team Description 12/08/2021 Orders Only Infectious Disease, [place] [address] [place] [address] Hilario Lozano, [address] [place] [address] Allergies No known active allergiesdocumented as of this encounter (statuses as of 12/08/2021) Medications Medication Sig Dispensed Refills Start Date [...] Active DilTIAZem HCl ER Beads 240 MG [id number]:Chron ic atrial fibrillation (HCC) TAKE ONE CAPSULE [...] as of this encounter (statuses as of 12/08/2021) Active Problems Problem Noted Date Gastroesophageal reflux disease without esophagitis 10/04/2021 Vertebral osteomyelitis 09/30/2021 Epidural abscess 09/30/2021 HTN, goal below 140/90 04/13/2017 Obesity, morbid (more than 100 lbs over ideal weight or BMI > 40) 04/13/2017 Hypothyroidism 04/13/2017 Atrial fibrillation 04/05/2017 documented as of this encounter (statuses as of 12/08/2021) Social History Tobacco Use Types Packs/Day Years [...] Neurological Surgery Owen Washington PA-C [address] [facility] NOAH Rodrigues [address] Health Maintenance Due Date Last Done Comments [...] EVERY 3 YRS-AGE 45 AND ABOVE 12/01/2024 12/08/2021, 12/01/2021, 12/01/2021, Additional history exists GARDASIL-HPV [...] Priority Date/Time Associated Diagnosis Comments CHEMISTRY-OUTSIDE Routine 12/08/2021 documented in this encounter Results * (ABNORMAL) CHEMISTRY-OUTSIDE (12/08/2021) CREATININE-OUTSIDE LAB 0.74 0.70 - 1.30 MG/DL OUTSIDE LAB (SEE SCANNED REPORT) EGFR-OUTSIDE LAB >60 ML/MIN/1.73M2 OUTSIDE LA B (SEE SCANNED REPORT) POTASSIUM-OUTSIDE LAB 3.4(L) 3.5 - 5.1 MMOL/L OUTSIDE LAB (SEE SCANNED REPORT) GLUCOSE-OUTSIDE LAB 82 70 - 110 MG/DL OUTSID E LAB [...] LAB OUTSIDE LAB (SEE SCANNED REPORT) HEMOGLOBIN, [id number] LAB OUTSIDE LAB (SEE SCANNED REPORT) PHOSPHORUS-OUTSIDE LAB OUTSIDE LAB (SEE SCANNED REPORT) PTH-OUTSIDE LAB OUTSIDE LAB (SEE SCANNED REPORT) MICROALBUMIN RATIO-OUTSIDE LAB OUTSIDE LAB (SEE SCANNED REPORT) PROTEIN, UA-OUTSIDE LAB OUTSIDE LAB (SEE SCANNED REPORT) HEMOGLOBIN-OUTSIDE LAB 12.6(L) 13.5 - 18.0 GM/DL OUTSIDE LAB (SEE SCANNED REPORT) CHEMISTRY COMMENT-OUTSIDE LAB Comment:SEE SCAN; CBCD, CMP, CRP OUTSIDE LAB (SEE SCANNED REPORT) Specimen Narrative OUTSIDE LAB (SEE SCANNED REPORT) documented in this encounter Advance Directives Documents on File Type Date Recorded Patient Route Delivery Manager Expl anation Advanced Directive Advanced Directive Advanced [...] and were consensually agreed upon. Care Teams Chief Arson Division Relationship Specialty Start Date End Date Lanette Roman MD [address] [place] [address] NOAH YOUNG [address] PCP - General 12/26/05 documented as of this encounter
--- OUTSIDE RECORDS SUMMARY | 2023-02-21 17:46 | External Medical Summary | Summary of Care ---
Author Name Unknown Organization [place] [address] Care Team Providers Care Implementation Lead Name Role Phone Lanette Roman MD Primary Care Provider +1 [phone] Encounter Details Date Type Department Care Team Description 04/18/2022 Immunization Ancillary [address] [place] [address] [place] [address] [place] [address] Arrived Allergies No known active allergiesdocumented as of this encounter (statuses as of 04/18/2022) Medications Medication Sig Dispensed Refills Start Date [...] Active DilTIAZem HCl ER Beads 240 MG [id number]:Chron ic atrial fibrillation (HCC) TAKE ONE CAPSULE [...] as of this encounter (statuses as of 04/18/2022) Active Problems Problem Noted Date Gastroesophageal reflux disease without esophagitis 10/04/2021 Vertebral osteomyelitis 09/30/2021 Epidural abscess 09/30/2021 HTN, goal below 140/90 04/13/2017 Obesity, morbid (more than 100 lbs over ideal weight or BMI > 40) 04/13/2017 Hypothyroidism 04/13/2017 Atrial fibrillation 04/05/2017 documented as of this encounter (statuses as of 04/18/2022) Immunizations Name Administration Dates Next Due Seasonal [...] as of this encounter Plan of Treatment Health Maintenance Due Date Last Done Comments COVID-19 Vaccine (#1) 1960 Depression Screening, Annual for Pts 12 and Over 1972 HIV Screening 1975 Alb / Creat Ratio 1978 Hepatitis C Screening 1978 DTaP,Tdap,and Td Vaccines (1 - Tdap) 1979 Cologuard: Ages 45-75 2005 Colonoscopy: Ages 45-75 2005 Sigmoidoscopy: Ages 45-75 2005 Colorectal Cancer Screening (Colonoscopy 10 Years; Sigmoidoscopy 5 Years; Cologuard 3 Years; FOBT 1 Year): Ages 45-75 10/26/2008 FOBT: Ages 45-75 10/26/2008 10/27/2007 Zoster Vaccines (1 of 2) 2010 Lipid Panel 05/13/2015 05/13/2010, 11/2008, 10/26/2007 Influenza Vaccine (FLU shot) (#1) 2022 04/18/2022, 03/29/2017 TSH FOR THYROID MEDICATION MONITORING YEARLY 10/15/2022 10/15/2021, 10/26/2007 GFR - Renal Function 01/14/2023 01/14/2022, 12/17/2021, 12/08/2021, Additional history exists Diabetes Screening 01/14/2025 01/14/2022, 0 12/17/2021, 12/08/2021, Additional history exists GARDASIL-HPV IMMUNIZATION SERIES Aged [...] Documents on File Type Date Recorded Patient Toe Former Stitchdowns Expl anation Advanced Directive Advanced Directive Advanced [...] and were consensually agreed upon. Care Teams Implementation Lead Relationship Specialty Start Date End Date Lanette Roman MD [address] [place] [address] [place] [id number] PCP - General 12/26/05 documented as of this encounter
--- OUTSIDE RECORDS SUMMARY | 2023-02-21 17:46 | External Medical Summary | Summary of Care ---
Author Name Unknown Organization [place] [address] Care Team Providers Care Paper And Prints Restorer Name Role Phone Lanette Roman MD Primary Care Provider [phone] [phone] Encounter Details Date Type Department Care Team Description 12/02/2021 Orders Only Infectious Disease, [place] [address] [place] [address] Hilario Lozano, [address] [place] [address] Allergies No known active allergiesdocumented as of [...] Active DilTIAZem HCl ER Beads 240 MG [id number]:Chron ic atrial fibrillation (HCC) TAKE ONE CAPSULE [...] Neurological Surgery Owen Washington PA-C [address] [facility] [place] [address] Health Maintenance Due Date Last Done Comments [...] BASIC METABOLIC PANEL (BMP) FOR HTN YEARLY 11/24/2022 12/01/2021, 11/24/2021, 11/13/2021, Additional history exists DIABETES SCREEN EVERY 3 YRS-AGE 45 AND ABOVE 11/24/2024 12/01/2021, 11/24/2021, 11/13/2021, Additional history exists GARDASIL-HPV IMMUNIZATION SERIES Aged [...] 12/01/2021 documented in this encounter Results * CHEMISTRY-OUTSIDE (12/01/2021) CREATININE-OUTSIDE LAB 0.77 0.70 - 1.30 MG/DL OUTSIDE LAB (SEE SCANNED REPORT) EGFR-OUTSIDE LAB OUTSIDE LAB (SEE SCANNED REPORT) POTASSIUM-OUTSIDE LAB [...] LAB OUTSIDE LAB (SEE SCANNED REPORT) HEMOGLOBIN, [id number] LAB OUTSIDE LAB (SEE SCANNED REPORT) PHOSPHORUS-OUTSIDE LAB OUTSIDE LAB (SEE SCANNED REPORT) PTH-OUTSIDE LAB OUTSIDE LAB (SEE SCANNED REPORT) MICROALBUMIN RATIO-OUTSIDE LAB OUTSIDE LAB (SEE SCANNED REPORT) PROTEIN, UA-OUTSIDE LAB OUTSIDE LAB (SEE SCANNED REPORT) HEMOGLOBIN-OUTSIDE LAB OUTSIDE LAB (SEE SCANNED REPORT) CHEMISTRY COMMENT-OUTSIDE LAB Comment:SEE SCAN; CMP, CRP, OUTSIDE LAB (SEE SCANNED REPORT) Specimen Narrative OUTSIDE LAB (SEE SCANNED REPORT) documented in this encounter Advance Directives Documents on File Type Date Recorded Patient Commercial Door Installer Expl anation Advanced Directive Advanced Directive Advanced [...] and were consensually agreed upon. Care Teams Paper And Prints Restorer Relationship Specialty Start Date End Date Lanette Roman MD [address] [place] [address] [place] YOUNG [id number] PCP - General 12/26/05 documented as of this encounter
--- OUTSIDE RECORDS SUMMARY | 2023-02-21 17:46 | External Medical Summary ---
Author Name Unknown Address Unknown Organization [id number]:[facility] - [address] [place] [address] Laboratory Report Ordering Provider Test Date Status JEFE WYNN 11/18/2021 06:39:00 Final Observation Date Value Abnormality Reference (Units ) Status CRP, low-sensitivity 11/18/2021 06:39:00 21 Above high normal <=5 (mg/L) Final Performing Location [facility] - [address] [place] [address]
--- OUTSIDE RECORDS SUMMARY | 2023-02-21 17:46 | External Medical Summary | Summary of Care ---
Author Name Unknown Organization [place] [address] Care Team Providers Care Ccna Name Role Phone Lanette Roman MD Primary Care Provider [phone] [phone] Encounter Details Date Type Department Care Team Description 01/06/2022 Orders Only Lab Mobile Phlebot[facility] [address] [place] [address] Lanette Roman MD [address] [place] [address] [place] [address] Iron deficiency anemia*; Osteomyelitis of vertebra of lumbar region (HCC); Hypopotassemia; Hematuria, microscopic Allergies No known active allergiesdocumented as of this encounter (statuses as of 01/06/2022) Medications Medication Sig Dispensed Refills Start Date [...] Active DilTIAZem HCl ER Beads 240 MG [id number]:Chr onic atrial fibrillation (HCC) TAKE ONE CAPSULE BY MOUTH DAILY 90 Cap 3 06/08/2018 Active Klor-Con M20 20 MEQ Oral Tablet Extended Release (Potassium Chloride Radha ER)Indications:Atri al fibrillation (HCC) TAKE 1 TABLET BY MOUTH EVERY DAY 90 Tab 3 03/25/2021 Active Metoprolol Succinate ER 100 MG Oral Tablet Extended Release 24 Hour (toPROL XL) Take by mouth 1 Tablet in the morning AND 1 Tablet before bedtime. 60 Tablet 1 10/10/2021 Active Amoxicillin 500 MG Oral Capsule (Amoxil) Take by mouth 2 Capsules in the morning AND 2 Capsules at noon AND 2 Capsules before bedtime. 180 Capsule 3 12/18/2021 01/17/2022 Active documented as of this encounter (statuses as of 01/06/2022) Active Problems Problem Noted Date Gastroesophageal reflux disease without esophagitis 10/04/2021 Vertebral osteomyelitis 09/30/2021 Epidural abscess 09/30/2021 HTN, goal below 140/90 04/13/2017 Obesity, morbid (more than 100 lbs over ideal weight or BMI > 40) 04/13/2017 Hypothyroidism 04/13/2017 Atrial fibrillation 04/05/2017 documented as of this encounter (statuses as of 01/06/2022) Social History Tobacco Use Types Packs/Day Years [...] Encounters Date Type Specialty Care Team Description 01/14/2022 Laboratory Laboratory Processing [facility] Mobile Home Draw [address] [place] [address] Scheduled Orders Name Type Priority Associated Diagnoses Orde r Schedule CBC Lab Routine Iron deficiency anemia Osteomyelitis of vertebra of lumbar region (HCC) Hypopotassemia Hematuria, microscopic Expected: 01/06/2022, Expires: 01/06/2023 URINALYSIS, REFLEX TO MICROSCOPIC Lab Routine Iron deficiency anemia Osteomyelitis of vertebra of lumbar region (HCC) Hypopotassemia Hematuria, microscopic Expected: 01/06/2022, Expires: 01/06/2023 COMPREHENSIVE METABOLIC PANEL Lab Routine Iron deficiency anemia Osteomyelitis of vertebra of lumbar region (HCC) Hypopotassemia Hematuria, microscopic Expected: 01/06/2022, Expires: 01/06/2023 CRP (INFLAMMATORY MARKER) Lab Routine Iron deficiency anemia Osteomyelitis of vertebra of lumbar region (HCC) Hypopotassemia Hematuria, microscopic Expected: 01/06/2022, Expires: 01/06/2023 ERYTHROCYTE SEDIMENTATION RATE (ESR) Lab Routine Iron deficiency anemia Osteomyelitis of vertebra of lumbar region (HCC) Hypopotassemia Hematuria, microscopic Expected: 01/06/2022, Expires: 01/06/2023 Health Maintenance Due Date Last Done Comments [...] Not on filedocumented as of this encounter Visit Diagnoses Diagnosis Iron deficiency anemia- Primary Iron deficiency anemia, unspecified Osteomyelitis of vertebra of lumbar region (HCC) Unspecified osteomyelitis, other specified site Hypopotassemia Hematuria, microscopic Microscopic hematuria documented in this encounter Advance Directives Documents on File Type Date Recorded Patient Derrick Boat Captain Expl anation Advanced Directive Advanced Directive Advanced [...] and were consensually agreed upon. Care Teams Ccna Relationship Specialty Start Date End Date Lanette Roman MD [address] [place] [address] [place] [address] PCP - General 12/26/05 documented as of this encounter
--- OUTSIDE RECORDS SUMMARY | 2023-02-21 17:46 | External Medical Summary ---
Author Name Unknown Address Unknown Organization [id number]:LABORATORY [facility] - [address] [place] [address] Laboratory Report Ordering Provider Test Date Status AMADOR ANDERS 01/14/2022 10:16:00 Final Observation Date Value Abnormality Reference (Units ) Status BUN 01/14/2022 10:16:00 18 6-20 (mg/dL) Final Creatinine 01/14/2022 10:16:00 1.1 0.6-1.2 (mg/dL) Final Glomerular filtration rate/1.73 sq M.predicted [Volume Rate/Area] in Serum, Plasma or Blood by Creatinine-based formula (CKD-EPI) 01/14/2022 10:16:00 74 >=60 (mL/min) Final Performing Location LABORATORY [facility] - [address] [place] [address]
--- OUTSIDE RECORDS SUMMARY | 2023-02-21 17:46 | External Medical Summary ---
Author Name Unknown Address Unknown Organization K01:LABORATORY [facility] - [address] [place] [address] Laboratory Report Ordering Provider Test Date Status AMADOR ANDERS 01/14/2022 10:16:00 Final Observation Date Value Abnormality Reference (Units ) Status WBC, Total 01/14/2022 10:16:00 7.03 4.00-10.80 (K/uL) Final RBC 01/14/2022 10:16:00 4.98 4.50-5.25 (M/uL) Final Hemoglobin 01/14/2022 10:16:00 14.6 14.0-16.8 (g/dL) Final HCT 01/14/2022 10:16:00 47.2 40.0-48.4 (%) Final MCV 01/14/2022 10:16:00 94.8 82.0-99.5 (fL) Final MCH 01/14/2022 10:16:00 29.3 27.0-34.0 (pg) Final MCHC 01/14/2022 10:16:00 30.9 32.0-36.0 (g/dL) Final RDW 01/14/2022 10:16:00 15.3 11.5-15.5 (%) Final Platelets 01/14/2022 10:16:00 226 140-400 (K/uL) Final MPV 01/14/2022 10:16:00 8.9 6.6-11.1 (fL) Final Nucleated erythrocytes/100 leukocytes [Ratio] in Blood by Automated count 01/14/2022 10:16:00 0 <=0 (/100 WBCs) Final Performing Location LAB[facility]ATORY [facility] - [address] [place] [address]
--- OUTSIDE RECORDS SUMMARY | 2023-02-21 17:46 | External Medical Summary ---
Author Name Unknown Address Unknown Organization K01:LABORATORY [facility] - [address] [place] [address] Laboratory Report Ordering Provider Test Date Status AMADOR ANDERS 01/14/2022 10:16:00 Final Observation Date Value Abnormality Reference (Units ) Status Erythrocyte sedimentation rate by Photometric method 01/14/2022 10:16:00 7 <20 (mm/hour) Final Performing Location LAB[facility] - [address] [place] [address]
--- OUTSIDE RECORDS SUMMARY | 2023-02-21 17:46 | External Medical Summary | Summary of Care ---
Author Name Unknown Organization [place] [address] Care Team Providers Care Noodle Maker Name Role Phone Lanette Roman MD Primary Care Provider [phone] [phone] Encounter Details Date Type Department Care Team Description 12/16/2021 Telephone Infectious Disease, [place] [address] [place] [address] Hilario Lozano, [address] [place] [address] Allergies No known active allergiesdocumented as of [...] Active DilTIAZem HCl ER Beads 240 MG [id number]:Chron ic atrial fibrillation (HCC) TAKE ONE CAPSULE [...] - 12/17/2021 8:09 AM EDT Keagan @ [facility] made aware of EOT date and [...] BASIC METABOLIC PANEL (BMP) FOR HTN YEARLY 12/17/2022 12/17/2021, 12/08/2021, 12/01/2021, Additional history exists DIABETES SCREEN EVERY 3 YRS-AGE 45 AND ABOVE 12/17/2024 12/17/2021, 12/08/2021, 12/01/2021, Additional history exists GARDASIL-HPV IMMUNIZATION [...] Documents on File Type Date Recorded Patient Precision Devices Inspector/Tester Expl anation Advanced Directive Advanced Directive Advanced [...] and were consensually agreed upon. Care Teams Noodle Maker Relationship Specialty Start Date End Date Lanette Roman MD [address] [place] [address] [place] [id number] PCP - General 12/26/05 documented as of this encounter
--- OUTSIDE RECORDS SUMMARY | 2023-02-21 17:46 | External Medical Summary | Summary of Care ---
Author Name Unknown Organization [place] [address] Care Team Providers Care Basketballs And Footballs Reverser Name Role Phone Lanette Roman MD Primary Care Provider [phone] [phone] Encounter Details Date Type Department Care Team Description 12/16/2021 Telephone Infectious Disease, [place] [address] [place] [address] Hilario Lozano, [address] [place] [address] Allergies No known active allergiesdocumented as of this encounter (statuses as of 12/16/2021) Medications Medication Sig Dispensed Refills Start Date [...] Active DilTIAZem HCl ER Beads 240 MG [id number]:Chron ic atrial fibrillation (HCC) TAKE ONE CAPSULE [...] as of this encounter (statuses as of 12/16/2021) Active Problems Problem Noted Date Gastroesophageal reflux disease without esophagitis 10/04/2021 Vertebral osteomyelitis 09/30/2021 Epidural abscess 09/30/2021 HTN, goal below 140/90 04/13/2017 Obesity, morbid (more than 100 lbs over ideal weight or BMI > 40) 04/13/2017 Hypothyroidism 04/13/2017 Atrial fibrillation 04/05/2017 documented as of this encounter (statuses as of 12/16/2021) Social History Tobacco Use Types Packs/Day Years [...] Neurological Surgery Owen Washington PA-C [address] [place] [address] Health Maintenance Due Date Last Done Comments [...] Documents on File Type Date Recorded Patient Cycle Repairer Expl anation Advanced Directive Advanced Directive Advanced [...] and were consensually agreed upon. Care Teams Basketballs And Footballs Reverser Relationship Specialty Start Date End Date Lanette Roman MD [address] [place] [address] [place] [id number] PCP - General 12/26/05 documented as of this encounter
--- OUTSIDE RECORDS SUMMARY | 2023-02-21 17:46 | External Medical Summary | Summary of Care ---
Author Name Unknown Organization [place] [address] Care Team Providers Care Press Loader Name Role Phone Lanette Roman MD Primary Care Provider [phone] [phone] Encounter Details Date Type Department Care Team Description 12/16/2021 Telephone Infectious Disease, [place] [address] [place] [address] Hilario Lozano, [address] [place] [address] Allergies No known active allergiesdocumented as of this encounter (statuses as of 12/19/2021) Medications Medication Sig Dispensed Refills Start Date [...] Active DilTIAZem HCl ER Beads 240 MG [id number]:Chron ic atrial fibrillation (HCC) TAKE ONE CAPSULE [...] as of this encounter (statuses as of 12/19/2021) Active Problems Problem Noted Date Gastroesophageal reflux disease without esophagitis 10/04/2021 Vertebral osteomyelitis 09/30/2021 Epidural abscess 09/30/2021 HTN, goal below 140/90 04/13/2017 Obesity, morbid (more than 100 lbs over ideal weight or BMI > 40) 04/13/2017 Hypothyroidism 04/13/2017 Atrial fibrillation 04/05/2017 documented as of this encounter (statuses as of 12/19/2021) Social History Tobacco Use Types Packs/Day Years [...] - 12/17/2021 8:09 AM EDT Keagan @ [facility] made aware of EOT date and order [...] Team Description 12/23/2021 Office Visit Neurological Surgery Owne Washington PA-C [address] [place] [address] Health Maintenance Due Date Last Done Comments [...] Documents on File Type Date Recorded Patient Surface Supervisor Expl anation Advanced Directive Advanced Directive Advanced [...] and were consensually agreed upon. Care Teams Press Loader Relationship Specialty Start Date End Date Lanette Roman MD [address] [place] [address] [place] [id number] PCP - General 12/26/05 documented as of this encounter
--- OUTSIDE RECORDS SUMMARY | 2023-02-21 17:46 | External Medical Summary | Summary of Care ---
Author Name Unknown Organization [place] [address] Care Team Providers Care Manufacturing Business Analyst Name Role Phone Lanette Roman MD Primary Care Provider [phone] [phone] Encounter Details Date Type Department Care Team Description 12/18/2021 Telephone Infectious Disease, [place] [address] [place] [address] Hilario Lozano, [address] [place] [address] Allergies No known active allergiesdocumented as of this encounter (statuses as of 12/18/2021) Medications Medication Sig Dispensed Refills Start Date [...] Active DilTIAZem HCl ER Beads 240 MG [id number]:Chr onic atrial fibrillation (HCC) TAKE ONE CAPSULE [...] as of this encounter (statuses as of 12/18/2021) Active Problems Problem Noted Date Gastroesophageal reflux disease without esophagitis 10/04/2021 Vertebral osteomyelitis 09/30/2021 Epidural abscess 09/30/2021 HTN, goal below 140/90 04/13/2017 Obesity, morbid (more than 100 lbs over ideal weight or BMI > 40) 04/13/2017 Hypothyroidism 04/13/2017 Atrial fibrillation 04/05/2017 documented as of this encounter (statuses as of 12/18/2021) Social History Tobacco Use Types Packs/Day Years [...] (15 years old or older) Yes 09/30/19 22 Cognitive Status Response Date of Assessm ent Because of a physical, menta l, or emotional condition, do you have serious difficulty concentrating, remembering, or making decisions? (5 years old or older No 09/29/2021 documented as of this encounter Plan of Treatment Upcoming Encounters Date Type Specialty Care Team Description 12/23/2021 Office Visit Neurological Surgery Owen Washington PA-C [address] [place], [place] [id number] Health Maintenance Due Date Last Done Comments [...] Documents on File Type Date Recorded Patient Financial Report Service Sales Agent Expl anation Advanced Directive Advanced Directive Advanced [...] and were consensually agreed upon. Care Teams Manufacturing Business Analyst Relationship Specialty Start Date End Date Lanette Roman MD [address] [place] [address] [place] [id number] PCP - General 12/26/05 documented as of this encounter
--- OUTSIDE RECORDS SUMMARY | 2023-02-21 17:46 | External Medical Summary ---
Author Name Unknown Address Unknown Organization K01:LAB[facility]ATORY [facility] - [address] [place] [address] Laboratory Report Ordering Provider Test Date Status AMADOR ANDERS 01/14/2022 10:16:00 Final Observation Date Value Abnormality Reference (Units ) Status CRP, low-sensitivity 01/14/2022 10:16:00 14 Above high normal <=5 (mg/L) Final Performing Location [facility] [address] [facility] [address]
--- OUTSIDE RECORDS SUMMARY | 2023-02-21 17:46 | External Medical Summary | Summary of Care ---
Author Name Unknown Organization [place] [address] Care Team Providers Care Lab Systems Analyst Name Role Phone Lanette Roman MD Primary Care Provider [phone] [phone] Encounter Details Date Type Department Care Team Description 12/18/2021 Orders Only Infectious Disease, [place] [address] [place] [address] Hilario Lozano, [address] [place] [address] Allergies No known active allergiesdocumented as of [...] Active DilTIAZem HCl ER Beads 240 MG [id number]:Chron ic atrial fibrillation (HCC) TAKE ONE CAPSULE [...] Neurological Surgery Owen Washington PA-C [address] [facility] [place] [address] Health Maintenance Due Date Last Done Comments [...] BASIC METABOLIC PANEL (BMP) FOR HTN YEARLY 12/18/2022 12/17/2021, 12/08/2021, 12/01/2021, Additional history exists DIABETES SCREEN EVERY 3 YRS-AGE 45 AND ABOVE 12/08/2024 12/17/2021, 12/08/2021, 12/01/2021, Additional history exists GARDASIL-HPV [...] Priority Date/Time Associated Diagnosis Comments CHEMISTRY-OUTSIDE Routine 12/17/2021 documented in this encounter Results * (ABNORMAL) CHEMISTRY-OUTSIDE (12/17/2021) CREATININE-OUTSIDE LAB 0.90 0.70 - 1.30 MG/DL OUTSIDE LAB (SEE SCANNED REPORT) EGFR-OUTSIDE LAB >60 >60 ML/MIN/1.73M2 OUTSIDE LAB (SEE SCANNED REPORT) POTASSIUM-OUTSIDE LAB 3.6 3.5 - 5.1 MMOL/L OUTSIDE LAB (SEE SCANNED REPORT) GLUCOSE-OUTSIDE LAB 74 70 - 110 MG/DL OUTSID E LAB [...] LAB OUTSIDE LAB (SEE SCANNED REPORT) HEMOGLOBIN, [id number] LAB 5.0 3.8 - 5.6 % OUTSIDE LAB (SEE SCANNED REPORT) PHOSPHORUS-OUTSIDE LAB OUTSIDE LAB (SEE SCANNED REPORT) PTH-OUTSIDE LAB OUTSIDE LAB (SEE SCANNED REPORT) MICROALBUMIN RATIO-OUTSIDE LAB OUTSIDE LAB (SEE SCANNED REPORT) PROTEIN, UA-OUTSIDE LAB OUTSIDE LAB (SEE SCANNED REPORT) HEMOGLOBIN-OUTSIDE LAB 10.7(L) 13.5 - 18.0 GM/DL OUTSIDE LAB (SEE SCANNED REPORT) CHEMISTRY COMMENT-OUTSIDE LAB Comment:SEE SCAN: CBCD, CMP, C REACTIVE, - HGB A1C, IRON, FERRITIN, T3 FREE, T4 OUTSIDE LAB (SEE SCANNED REPORT) Specimen Narrative OUTSIDE LAB (SEE SCANNED REPORT) documented in this encounter Advance Directives Documents on File Type Date Recorded Patient City Bailiff Expl anation Advanced Directive Advanced Directive Advanced [...] and were consensually agreed upon. Care Teams Lab Systems Analyst Relationship Specialty Start Date End Date Lanette Roman MD [address] [place] [address] [place] [address] PCP - General 12/26/05 documented as of this encounter
--- OUTSIDE RECORDS SUMMARY | 2023-02-21 17:47 | External Medical Summary | Summary of Care ---
Author Name Unknown Organization [place] [address] Care Team Providers Care Hypo Dipper Name Role Phone Lanette Roman MD Primary Care Provider [phone] [phone] Encounter Details Date Type Department Care Team Description 11/05/2021 Orders Only Lab Mobile Phlebotomy [facility] [address] [place] [address] David Hsieh, DO [address] [place] [address] Routine medical exam* Allergies No known active allergiesdocumented as of this encounter (statuses as of 11/05/2021) Medications Medication Sig Dispensed Refills Start Date [...] Active DilTIAZem HCl ER Beads 240 MG [id number]:Ch ronic atrial fibrillation (HCC) TAKE ONE CAPSULE BY MOUTH DAILY 90 Cap 3 06/08/2018 Active Klor-Con M20 20 MEQ Oral Tablet Extended Release (Potassium Chloride Radha ER)Indications:Atr ial fibrillation (HCC) TAKE 1 TABLET BY MOUTH EVERY DAY 90 Tab 3 03/25/2021 Active Metoprolol Succinate ER 100 MG Oral Tablet Extended Release 24 Hour (toPROL XL) Take by mouth 1 Tablet in the morning AND 1 Tablet before bedtime. 60 Tablet 1 10/10/2021 Active ampicillin IV IJ (AMBULATORY) Administer intravenously 2 g every 4 hours . 360 g 1 10/10/2021 11/14/2021 Active documented as of this encounter (statuses as of 11/05/2021) Active Problems Problem Noted Date Gastroesophageal reflux disease without esophagitis 10/04/2021 Vertebral osteomyelitis 09/30/2021 Epidural abscess 09/30/2021 HTN, goal below 140/90 04/13/2017 Obesity, morbid (more than 100 lbs over ideal weight or BMI > 40) 04/13/2017 Hypothyroidism 04/13/2017 Atrial fibrillation 04/05/2017 documented as of this encounter (statuses as of 11/05/2021) Social History Tobacco Use Types Packs/Day Years [...] Encounters Date Type Specialty Care Team Description 11/06/2021 Laboratory Laboratory Processing [facility] [address] [place] [address] 11/13/2021 Office Visit Neurological Surgery Junior Celeste MD [address] [facility] [place] [address] 11/17/2021 Telemedicine Infectious Disease Hilario Lozano, [address] [place] [address] Scheduled Orders Name Type Priority Associated Diagnoses Orde r Schedule CBC Lab Routine Routine medical exam Expected: 11/06/2021, Expires: 11/05/2022 BASIC METABOLIC PANEL Lab Routine Routine medical exam Expected: 11/06/2021, Expires: 11/05/2022 Health Maintenance Due Date Last Done Comments COVID-19 Vaccine (1) 1965 Depression Screening, Annual for Pts 12 [...] BASIC METABOLIC PANEL (BMP) FOR HTN YEARLY 10/30/2022 10/30/2021, 10/23/2021, 10/16/2021, Additional history exists DIABETES SCREEN EVERY 3 YRS-AGE 45 AND ABOVE 10/30/2024 10/30/2021, 10/23/2021, 10/16/2021, Additional history exists GARDASIL-HPV IMMUNIZATION SERIES Aged [...] as of this encounter Visit Diagnoses Diagnosis Routine medical exam- Primary Routine general medical examination at a health care facility documented in this encounter Advance Directives Documents on File Type Date Recorded Patient Geomorphologist Expl anation Advanced Directive Advanced Directive Advanced [...] and were consensually agreed upon. Care Teams Hypo Dipper Relationship Specialty Start Date End Date Lanette Roman MD [address] [place] [address] [place] [address] PCP - General 12/26/05 documented as of this encounter
--- OUTSIDE RECORDS SUMMARY | 2023-02-21 17:47 | External Medical Summary ---
Author Name Unknown Address Unknown Organization [id number]:[facility] [address] [facility] [place] [address] Laboratory Report Ordering Provider Test Date Status DEIDRA ZAZUETA 10/15/2021 06:04:00 Final Observation Date Value Abnormality Reference (Units ) Status TSH 10/15/2021 06:04:00 2.59 0.27-4.20 (uIU/mL) Final Performing Location LABORATORY C - [address] [place] [address]
--- OUTSIDE RECORDS SUMMARY | 2023-02-21 17:47 | External Medical Summary ---
Author Name Unknown Address Unknown Organization [id number]:LABORATORY [facility] [place] - [address] [place] [address] Laboratory Report Ordering Provider Test Date Status JIMY TORRES 10/07/2021 07:42:00 Final Observation Date Value Abnormality Reference (Units ) Status BUN 10/07/2021 07:42:00 7 6-20 (mg/dL) Final Creatinine 10/07/2021 07:42:00 0.9 0.6-1.2 (mg/dL) Final Glomerular filtration rate/1.73 sq M.predicted [Volume Rate/Area] in Serum, Plasma or Blood by Creatinine-based formula (CKD-EPI) 10/07/2021 07:42:00 >90 >=60 (mL/min) Final Performing Location LABORATORY [facility] - [address] [place] [address]
--- OUTSIDE RECORDS SUMMARY | 2023-02-21 17:47 | External Medical Summary | Summary of Care ---
Author Name Unknown Organization [place] [address] Care Team Providers Care Overlock Waistline Joiner Name Role Phone Lanette Roman MD Primary Care Provider [phone] [phone] Encounter Details Date Type Department Care Team Description 10/16/2021 Telephone Infectious Disease, [place] [address] [place] [address] Hilario Lozano [address] [place] [address] Allergies No known active allergiesdocumented as of this encounter (statuses as of 10/16/2021) Medications Medication Sig Dispensed Refills Start Date [...] Active DilTIAZem HCl ER Beads 240 MG [id number]:Ch ronic atrial fibrillation (HCC) TAKE ONE CAPSULE [...] as of this encounter (statuses as of 10/16/2021) Active Problems Problem Noted Date Gastroesophageal reflux disease without esophagitis 10/04/2021 Vertebral osteomyelitis 09/30/2021 Epidural abscess 09/30/2021 HTN, goal below 140/90 04/13/2017 Obesity, morbid (more than 100 lbs over ideal weight or BMI > 40) 04/13/2017 Hypothyroidism 04/13/2017 Atrial fibrillation 04/05/2017 documented as of this encounter (statuses as of 10/16/2021) Social History Tobacco Use Types Packs/Day Years [...] Telephone Encounter - Jolanta Moran LPN - 10/16/2021 2:42 PM EDT Pt discharged to [facility] [phone] FINAL IMPRESSION AND RECOMMENDATIONS: Syndrome Osteomyelitis Microbiology Enterococcus faecalis Antibiotic Ampicillin Route IV Dose 2 grams Frequency Every 4 hours End Date 11/14/21 Vascular access: Remove intravascular access after completion of antibiotics Recommended followup imaging studies: MRI T & L spine in 6 weeks LABORATORY MONITORING: Lab Test Frequency End Date CBC with diff CMP CRP Q week 11/14/21 PROVIDERS: Ordering ID Physician Following ID Physician ID clinic follow-up date Hilario Lozano Robert 6 weeks from discharge documented in this encounter Plan of Treatment Upcoming Encounters Date Type Specialty Care Team Description 11/13/2021 Office Visit Neurological Surgery Junior Celeste MD [address] [place] [address] [place] [address] Health Maintenance Due Date Last Done Comments [...] BASIC METABOLIC PANEL (BMP) FOR HTN YEARLY 10/16/2022 10/16/2021, 10/11/2021, 10/08/2021, Additional history exists DIABETES SCREEN EVERY 3 YRS-AGE 45 AND ABOVE 10/16/2024 10/16/2021, 10/11/2021, 10/08/2021, Additional history exists GARDASIL-HPV IMMUNIZATION SERIES Aged [...] Documents on File Type Date Recorded Patient Hotel Assistant Manager Expl anation Advanced Directive Advanced Directive [...] and were consensually agreed upon. Care Teams Overlock Waistline Joiner Relationship Specialty Start Date End Date Lanette Roman MD [address] [place] [address] [place] [address] PCP - General 12/26/05 documented as of this encounter
--- OUTSIDE RECORDS SUMMARY | 2023-02-21 17:47 | External Medical Summary | Summary of Care ---
Author Name Unknown Organization [place] [address] Care Team Providers Care Manager Corporate Strategy Name Role Phone Lanette Roman MD Primary Care Provider [phone] [phone] Reason for Visit * Reason Onset Date Comments Appointment 11/07/2021 Encounter Details Date Type Department Care Team Description 11/07/2021 Telephone [facility] [place] [address] [place] [address] Specified, Erica No [facility] [address] [place] [id number] Appointment Allergies No known active allergiesdocumented as of this encounter (statuses as of 11/13/2021) Medications Medication Sig Dispensed Refills Start Date [...] Active DilTIAZem HCl ER Beads 240 MG [id number]:Ch ronic atrial fibrillation (HCC) TAKE ONE CAPSULE [...] as of this encounter (statuses as of 11/13/2021) Active Problems Problem Noted Date Gastroesophageal reflux disease without esophagitis 10/04/2021 Vertebral osteomyelitis 09/30/2021 Epidural abscess 09/30/2021 HTN, goal below 140/90 04/13/2017 Obesity, morbid (more than 100 lbs over ideal weight or BMI > 40) 04/13/2017 Hypothyroidism 04/13/2017 Atrial fibrillation 04/05/2017 documented as of this encounter (statuses as of 11/13/2021) Social History Tobacco Use Types Packs/Day Years [...] shopping? (15 years old or older) Yes 04/18/20 22 Cognitive Status Response Date of Assessm ent Because of a physical, menta l, or emotional condition, do you have serious difficulty concentrating, remembering, or making decisions? (5 years old or older No 09/29/2021 documented as of this encounter Miscellaneous Notes * Telephone Encounter - Trish García LPN - 11/13/2021 4:06 PM EDT Outgoing call to Mariam. Rescheduled patient for 12/23 with Owen Washington for hospital discharge follow up. Advised can be done via video but patient is discharging on 12/21. Mariam will call back if anything else is needed. * Telephone Encounter - Trish García LPN - 11/13/2021 2:20 PM EDT Mari[facility] in [facility] to advise there was an issue with transportation and a wheelchair issue. Patient needs to be rescheduled but there is nothing else open on Dr. Celeste's schedule. There is a close and release slot that is coming up for 11/25/21 but there is nothing else open. They are asking for sooner appt or if can be seen by someone else. TT sent to Dr. Celeste to review but he is in with a patient. Advised Mariam would have to call back with an update for an appt as Dr. Celeste is unavailable right now. Mariam advised to leave a voicemail if she doesn't answer as she is in till about 4-4:15pm. * Telephone Encounter - Estefanía Whatley LPN - 11/07/2021 9:36 AM EDT Danielle from [facility] calling to confirm appt 11/13/2021 documented in this encounter Plan of Treatment Upcoming Encounters Date Type Specialty Care Team Description 11/17/2021 Telemedicine Infectious Disease Hilario Lozano DO [address] [place] [address] 12/23/2021 Office Visit Neurological Surgery Owen Washington PA-C [address] [place] [address] Health Maintenance Due Date Last Done Comments [...] BASIC METABOLIC PANEL (BMP) FOR HTN YEARLY 11/13/2022 11/13/2021, 11/06/2021, 10/30/2021, Additional history exists DIABETES SCREEN EVERY 3 YRS-AGE 45 AND ABOVE 11/13/2024 11/13/2021, 11/06/2021, 10/30/2021, Additional history exists GARDASIL-HPV IMMUNIZATION SERIES Aged [...] Documents on File Type Date Recorded Patient Dry Food Products Mixer Expl anation Advanced Directive Advanced Directive Advanced [...] and were consensually agreed upon. Care Teams Manager Corporate Strategy Relationship Specialty Start Date End Date Lanette Roman MD [address] [place] [address] [place] [address] PCP - General 12/26/05 documented as of this encounter
--- OUTSIDE RECORDS SUMMARY | 2023-02-21 17:47 | External Medical Summary | Summary of Care ---
Author Name Unknown Organization [place] [address] Care Team Providers Care Teacher Assistant Name Role Phone Lanette Roman MD Primary Care Provider [phone] [phone] Encounter Details Date Type Department Care Team Description 11/13/2021 Telephone Neurology, [place] [address], [place] [id number] Junior Celeste MD [facility] [place] [address] Allergies No known active allergiesdocumented as of [...] Active DilTIAZem HCl ER Beads 240 MG [id number]:Ch ronic atrial fibrillation (HCC) TAKE ONE CAPSULE [...] Team Description 11/17/2021 Telemedicine Infectious Disease Hilario Lozano, DO [address] [place] [address] Health Maintenance Due Date Last Done Comments [...] Documents on File Type Date Recorded Patient Continuous Pillowcase Cutter Expl anation Advanced Directive Advanced Directive Advanced [...] and were consensually agreed upon. Care Teams Teacher Assistant Relationship Specialty Start Date End Date Lanette Roman MD [address] [place] [address] [place] [address] PCP - General 12/26/05 documented as of this encounter
--- OUTSIDE RECORDS SUMMARY | 2023-02-21 17:47 | External Medical Summary ---
Author Name Unknown Address Unknown Organization [id number]:LABORATORY [facility] [address] [place] [address] Laboratory Report Ordering Provider Test Date Status JEFE WYNN 10/11/2021 06:00:00 Final Observation Date Value Abnormality Reference (Units ) Status BUN 10/11/2021 06:00:00 11 6-20 (mg/dL) Final Creatinine 10/11/2021 06:00:00 0.8 0.6-1.2 (mg/dL) Final Glomerular filtration rate/1.73 sq M.predicted [Volume Rate/Area] in Serum, Plasma or Blood by Creatinine-based formula (CKD-EPI) 10/11/2021 06:00:00 >90 >=60 (mL/min) Final Performing Location LABORATORY [facility] [address] [place] [address]
--- OUTSIDE RECORDS SUMMARY | 2023-02-21 17:47 | External Medical Summary | Summary of Care ---
Author Name [place] [address] Care Team Providers Care Beef Breaker Name Role Phone Lanette Roman MD Primary Care Provider [phone] [phone] Encounter Details Date Type Department Care Team Description 11/17/2021 Telemedicine Infectious Disease, [facility] [address] [place] [address] Hilario Lozano, DO [address], [place] [id number] Vertebral osteomyelitis (HCC)* Allergies No known active allergiesdocumented as of this encounter (statuses as of 11/17/2021) Medications Medication Sig Dispensed Refills Start Date [...] Active DilTIAZem HCl ER Beads 240 MG [id number]:Chron ic atrial fibrillation (HCC) TAKE ONE CAPSULE [...] as of this encounter (statuses as of 11/17/2021) Active Problems Problem Noted Date Gastroesophageal reflux disease without esophagitis 10/04/2021 Vertebral osteomyelitis 09/30/2021 Epidural abscess 09/30/2021 HTN, goal below 140/90 04/13/2017 Obesity, morbid (more than 100 lbs over ideal weight or BMI > 40) 04/13/2017 Hypothyroidism 04/13/2017 Atrial fibrillation 04/05/2017 documented as of this encounter (statuses as of 11/17/2021) Social History Tobacco Use Types Packs/Day Years [...] No 09/29/2021 documented as of this encounter Progress Notes * Hilario Lozano DO - 11/17/2021 2:47 PM EDT Unable to connect. documented in this encounter Plan of Treatment Upcoming Encounters Date Type Specialty Care Team Description 11/17/2021 Telemedicine Infectious Disease Hilario Lozano DO [address] [place] [address] Vertebral osteomyelitis (HCC)* 12/23/2021 Office Visit Neurological Surgery Owen Washington PA-C [address] [place] [address] Health Maintenance Due Date Last [...] as of this encounter Visit Diagnoses Diagnosis Vertebral osteomyelitis (HCC)- Primary Unspecified osteomyelitis, other specified site Vertebral osteomyelitis (HCC)- Primary Unspecified osteomyelitis, other specified site documented in this encounter Advance Directives Documents on File Type Date Recorded Patient Rn Registry Expl anation Advanced Directive Advanced Directive Advanced [...] and were consensually agreed upon. Care Teams Beef Breaker Relationship Specialty Start Date End Date Lanette Roman MD [address] [place] [address] [place] [address] PCP - General 12/26/05 documented as of this encounter
--- OUTSIDE RECORDS SUMMARY | 2023-02-21 17:47 | External Medical Summary ---
Author Name Unknown Address Unknown Organization K09:LABORATORY [place] [address] Laboratory Report Ordering Provider Test Date Status DEIDRA ZAZUETA 10/30/2021 06:30:00 Final Observation Date Value Abnormality Reference (Units ) Status BUN 10/30/2021 06:30:00 10 6-20 (mg/dL) Final Creatinine 10/30/2021 06:30:00 0.9 0.6-1.2 (mg/dL) Final Glomerular filtration rate/1.73 sq M.predicted [Volume Rate/Area] in Serum, Plasma or Blood by Creatinine-based formula (CKD-EPI) 10/30/2021 06:30:00 >90 >=60 (mL/min) Final Performing Location LABORATORY [place] [address]
--- OUTSIDE RECORDS SUMMARY | 2023-02-21 17:47 | External Medical Summary ---
Author Name Unknown Address Unknown Organization [id number]:LABORATORY [facility] [address] [place] [address] Laboratory Report Ordering Provider Test Date Status JEFE WYNN 10/11/2021 06:00:00 Final Observation Date Value Abnormality Reference (Units ) Status WBC, Total 10/11/2021 06:00:00 7.83 4.00-10.8 0 (K/uL) Final RBC 10/11/2021 06:00:00 5.59 Above high normal 4. 50-5.25 (M/uL) Final Hemoglobin 10/11/2021 06:00:00 16.2 14.0-16.8 (g/dL) Final HCT 10/11/2021 06:00:00 47.9 40.0-48.4 (%) Final MCV 10/11/2021 06:00:00 85.7 82.0-99.5 (fL) Final MCH 10/11/2021 06:00:00 29.0 27.0-34.0 (pg) Final MCHC 10/11/2021 06:00:00 33.8 32.0-36.0 (g/dL) Final RDW 10/11/2021 06:00:00 14.5 11.5-15.5 (%) Final Platelets 10/11/2021 06:00:00 218 140-400 (K /uL) Final MPV 10/11/2021 06:00:00 8.8 6.6-11.1 ( fL) Final Performing Location LABORATORY [facility] [address] [place] [address]
--- OUTSIDE RECORDS SUMMARY | 2023-02-21 17:47 | External Medical Summary ---
Author Name Unknown Address Unknown Organization K01:[facility] [place] [facility][note 3] [address] [facility] [address] Laboratory Report Ordering Provider Test Date Status BIRDIE,ANTWAN 10/08/2021 07:54:00 Final Observation Date Value Abnormality Reference (Units ) Status WBC, Total 10/08/2021 07:54:00 10.00 4.00-10.80 (K/uL) Final RBC 10/08/2021 07:54:00 5.70 Above high normal 4.50-5.25 (M/uL) Final Hemoglobin 10/08/2021 07:54:00 16.8 14.0-16.8 (g/dL) Final HCT 10/08/2021 07:54:00 48.8 Above high normal 40.0-48.4 (%) Final MCV 10/08/2021 07:54:00 85.6 82.0-99.5 (fL) Final MCH 10/08/2021 07:54:00 29.5 27.0-34.0 (pg) Final MCHC 10/08/2021 07:54:00 34.4 32.0-36.0 (g/dL) Final RDW 10/08/2021 07:54:00 13.9 11.5-15.5 (%) Final MPV 10/08/2021 07:54:00 8.3 6.6-11.1 (fL) Final Nucleated erythrocytes/100 leukocytes [Ratio] in Blood by Automated count 10/08/2021 07:54:00 0 <=0 (/100 WBCs) Final Platelets 10/08/2021 07:54:00 231 140-400 (K/uL) Final Performing Location [facility] [place] [address] [place] [address]
--- OUTSIDE RECORDS SUMMARY | 2023-02-21 17:47 | External Medical Summary | Summary of Care ---
Author Name Unknown Organization [place] [address] Care Team Providers Care Circular Clerk Name Role Phone Lanette Roman MD Primary Care Provider [phone] [phone] Encounter Details Date Type Department Care Team Description 09/24/2021 Telephone Infectious Disease, [place] [address] [place], [place] [phone] Mansi Aguayo MD [address], [place] [id number] Allergies No known active allergiesdocumented as of this encounter (statuses as of 10/13/2021) Medications Medication Sig Dispensed Refills Start Date [...] Active DilTIAZem HCl ER Beads 240 MG [id number]:Ch ronic atrial fibrillation (HCC) TAKE ONE CAPSULE BY MOUTH DAILY 90 Cap 3 06/08/2018 Active Klor-Con M20 20 MEQ Oral Tablet Extended Release (Potassium Chloride Radha ER)Indications:Atr ial fibrillation (HCC) TAKE 1 TABLET BY MOUTH EVERY DAY 90 Tab 3 03/25/2021 Active TraMADol HCl ER 100 MG TB24 Take 100 mg by mouth daily. 0 10/10/2021 Discontinued traZODone (DESYREL) 50 MG Tablet Take 50 mg by mouth at bedtime. 0 10/10/2021 Discontinued metoprolol succinate XL (TOPROL XL) 100 MG TB24 Take 1 Tab by mouth 2 times a day. 64 Tab 11 05/05/2017 10/10/2021 Discontinued Magnesium Oxide 400 (240 Mg) MG TabletIndications: Atrial fibrillation (HCC) Take 1 Tab by mouth 2 times a day. 60 Tab 5 10/14/2017 10/10/2021 Discontinued documented as of this encounter (statuses as of 10/13/2021) Active Problems Problem Noted Date Gastroesophageal reflux disease without esophagitis 10/04/2021 Vertebral osteomyelitis 09/30/2021 Epidural abscess 09/30/2021 HTN, goal below 140/90 04/13/2017 Obesity, morbid (more than 100 lbs over ideal weight or BMI > 40) 04/13/2017 Hypothyroidism 04/13/2017 Atrial fibrillation 04/05/2017 documented as of this encounter (statuses as of 10/13/2021) Social History Tobacco Use Types Packs/Day Years [...] on file documented as of this encounter Miscellaneous Notes * Telephone Encounter - Jolanta Moran LPN - 10/13/2021 2:12 PM EDT Pt admitted @ [facility] Jolanta Moran LPN Nurse Navigator ID * Telephone Encounter - Jolanta Moran LPN - 09/24/2021 1:16 PM EDT Pt was a consult from [facility]. Being treated with 12gm IV ampicillin continuous for 6-8 weeks for lumbar discitis and epidural abscess. Pt is due for a repeat MRI @ [facility] (around 10/27/21) NN will follow to ensure MRI is scheduled to determine [facility] date. Dr Aguayo, please advise on type of MRI you'd like. Thank you! Jolanta Moran LPN Nurse Navigator ID documented in this encounter Plan of Treatment Upcoming Encounters Date Type Specialty Care Team Description 11/13/2021 Office Visit Neurological Surgery Junior Celeste MD [facility] [place] [address] Health Maintenance Due Date Last Done Comments COVID-19 Vaccine (1) 1965 Depression Screening, Annual for Pts 12 and Over 1972 DTaP,Tdap,and Td Vaccines (1 - Tdap) 1979 Cologuard: Ages 45-75 2005 Colonoscopy: Ages 45-75 2005 Sigmoidoscopy: Ages 45-75 2005 TSH FOR THYROID MEDICATION MONITORING YEARLY 10/25/2008 10/26/2007 Colorectal Cancer Screening (Colonoscopy 10 Years; Sigmoidoscopy 5 Years; Cologuard 3 Years; FOBT 1 Year): Ages 45-75 10/26/2008 FOBT: Ages 45-75 10/26/2008 10/27/2007 Zoster Vaccines (1 of 2) 2010 LIPID SCREEN EVERY 5 YRS-MEN AGE 35-75 05/13/2015 05/13/2010, 01/17/2009, 10/26/2007 *URINE ALBUMIN/CREATININE RATIO ONCE FOR HTN 04/17/2017 Influenza Vaccine (FLU shot) (Season Ended) 2022 03/29/2017 BASIC METABOLIC PANEL (BMP) FOR HTN YEARLY 10/11/2022 10/11/2021, 10/08/2021, 10/07/2021, Additional history exists DIABETES SCREEN EVERY 3 YRS-AGE 45 AND ABOVE 10/11/2024 10/11/2021, 10/08/2021, 10/07/2021, Additional history exists GARDASIL-HPV IMMUNIZATION SERIES Aged [...] Documents on File Type Date Recorded Patient Hat And Cap Parts Cutter Hand Expl anation Advanced Directive Advanced Directive Advanced [...] and were consensually agreed upon. Care Teams Circular Clerk Relationship Specialty Start Date End Date Lanette Roman MD [address] [place] [address] [place] [address] PCP - General 12/26/05 documented as of this encounter
--- OUTSIDE RECORDS SUMMARY | 2023-02-21 17:47 | External Medical Summary ---
Author Name Unknown Address Unknown Organization K09:LABORATORY [place] [address] Laboratory Report Ordering Provider Test Date Status DEIDRA ZAZUETA 11/13/2021 06:15:00 Final Observation Date Value Abnormality Reference (Units ) Status BUN 11/13/2021 06:15:00 8 6-20 (mg/dL) Final Creatinine 11/13/2021 06:15:00 0.9 0.6-1.2 (mg/dL) Final Glomerular filtration rate/1.73 sq M.predicted [Volume Rate/Area] in Serum, Plasma or Blood by Creatinine-based formula (CKD-EPI) 11/13/2021 06:15:00 >90 >=60 (mL/min) Final Performing Location LABORATORY [place] [address]
--- OUTSIDE RECORDS SUMMARY | 2023-02-21 17:47 | External Medical Summary | Summary of Care ---
Author Name Unknown Organization [place] [address] Care Team Providers Care Cnc Lathe Machinist Name Role Phone Lanette Roman MD Primary Care Provider [phone] Encounter Details Date Type Department Care Team Description 11/17/2021 Orders Only Lab Mobile Phlebotomy [facility] [address], [place] [id number] Christofer Menezes MD [address] [place] [address] Routine medical exam* Allergies No known active allergiesdocumented as of this encounter (statuses as of 11/18/2021) Medications Medication Sig Dispensed Refills Start Date [...] Active DilTIAZem HCl ER Beads 240 MG [id number]:Chron ic atrial fibrillation (HCC) TAKE ONE CAPSULE [...] as of this encounter (statuses as of 11/18/2021) Active Problems Problem Noted Date Gastroesophageal reflux disease without esophagitis 10/04/2021 Vertebral osteomyelitis 09/30/2021 Epidural abscess 09/30/2021 HTN, goal below 140/90 04/13/2017 Obesity, morbid (more than 100 lbs over ideal weight or BMI > 40) 04/13/2017 Hypothyroidism 04/13/2017 Atrial fibrillation 04/05/2017 documented as of this encounter (statuses as of 11/18/2021) Social History Tobacco Use Types Packs/Day Years [...] Encounters Date Type Specialty Care Team Description 11/18/2021 Laboratory Laboratory Processing Surjit, Anthony [facility] [address] [place] [address] 12/23/2021 Office Visit Neurological Surgery Owen [place] PA-C [address] [place] [address] Scheduled Orders Name Type Priority Associated Diagnoses Orde r Schedule CRP (INFLAMMATORY MARKER) Lab Routine Routine medical exam Expected: 11/18/2021, Expires: 11/17/2022 Health Maintenance Due Date Last Done Comments [...] Documents on File Type Date Recorded Patient Fisher Hoop Net Expl anation Advanced Directive Advanced Directive Advanced [...] and were consensually agreed upon. Care Teams Cnc Lathe Machinist Relationship Specialty Start Date End Date Lanette Roman MD [address] [place] [address] [place] [address] PCP - General 12/26/05 documented as of this encounter
--- OUTSIDE RECORDS SUMMARY | 2023-02-21 17:47 | External Medical Summary ---
Author Name Unknown Address Unknown Organization [id number]:[facility] [place] [address] Laboratory Report Ordering Provider Test Date Status DEIDRA ZAZUETA 10/23/2021 06:30:00 Final Observation Date Value Abnormality Reference (Units ) Status BUN 10/23/2021 06:30:00 16 6-20 (mg/dL) Final Creatinine 10/23/2021 06:30:00 0.9 0.6-1.2 (mg/dL) Final Glomerular filtration rate/1.73 sq M.predicted [Volume Rate/Area] in Serum, Plasma or Blood by Creatinine-based formula (CKD-EPI) 10/23/2021 06:30:00 >90 >=60 (mL/min) Final Performing Location [facility] [place] [address]
--- OUTSIDE RECORDS SUMMARY | 2023-02-21 17:47 | External Medical Summary ---
Author Name Unknown Address Unknown Organization [id number]:[facility] [place] - [address] [place] [address] Laboratory Report Ordering Provider Test Date Status ANTWAN PACKER 10/08/2021 07:54:00 Final Observation Date Value Abnormality Reference (Units ) Status PT 10/08/2021 07:54:00 19.4 Above high normal 11 .5-14.6 (seconds) Final INR 10/08/2021 07:54:00 1.62 Above high normal 0. 84-1.14 Final Performing Location [facility] - [address] [place] [address]
--- OUTSIDE RECORDS SUMMARY | 2023-02-21 17:47 | External Medical Summary | Summary of Care ---
Author Name Unknown Organization [place] [address] Care Team Providers Care Bell Maker Name Role Phone Lanette Roman MD Primary Care Provider [phone] [phone] Encounter Details Date Type Department Care Team Description 10/11/2021 Orders Only Lab Mobile Phlebotomy [facility] [address] [place], [place] [id number] Christofer Menezes MD [address] [place] [address] Routine medical exam* Allergies No known active allergiesdocumented as of this encounter (statuses as of 10/11/2021) Medications Medication Sig Dispensed Refills Start Date [...] Active DilTIAZem HCl ER Beads 240 MG [id number]:Ch ronic atrial fibrillation (HCC) TAKE ONE CAPSULE [...] as of this encounter (statuses as of 10/11/2021) Active Problems Problem Noted Date Gastroesophageal reflux disease without esophagitis 10/04/2021 Vertebral osteomyelitis 09/30/2021 Epidural abscess 09/30/2021 HTN, goal below 140/90 04/13/2017 Obesity, morbid (more than 100 lbs over ideal weight or BMI > 40) 04/13/2017 Hypothyroidism 04/13/2017 Atrial fibrillation 04/05/2017 documented as of this encounter (statuses as of 10/11/2021) Social History Tobacco Use Types Packs/Day Years [...] Encounters Date Type Specialty Care Team Description 10/11/2021 Laboratory Laboratory Processing [facility] [employer] [facility] [place] [address] [facility] [place] [address] 11/13/2021 Office Visit Neurological Surgery Junior Celeste MD [address] [facility] [place] [address] Scheduled Orders Name Type Priority Associated Diagnoses Orde r Schedule BASIC METABOLIC PANEL Lab Routine Routine medical exam Expected: 10/11/2021, Expires: 10/11/2022 CBC Lab Routine Routine medical exam Expected: 10/11/2021, Expires: 10/11/2022 Health Maintenance Due Date Last Done Comments [...] BASIC METABOLIC PANEL (BMP) FOR HTN YEARLY 10/08/2022 10/08/2021, 10/07/2021, 10/06/2021, Additional history exists DIABETES SCREEN EVERY 3 YRS-AGE 45 AND ABOVE 10/08/2024 10/08/2021, 10/07/2021, 10/06/2021, Additional history exists GARDASIL-HPV IMMUNIZATION SERIES Aged [...] this encounter Visit Diagnoses Diagnosis Routine medical exam Routine general medical examination at a health care facility Routine medical exam- Primary Routine general medical examination at a [facility] care facility documented in this encounter Advance Directives Documents on File Type Date Recorded Patient Can Dryer Expl anation Advanced Directive Advanced Directive Advanced [...] and were consensually agreed upon. Care Teams Bell Maker Relationship Specialty Start Date End Date Lanette Roman MD [address] [place] [address] [place] [address] PCP - General 12/26/05 documented as of this encounter
--- OUTSIDE RECORDS SUMMARY | 2023-02-21 17:47 | External Medical Summary ---
Author Name Unknown Address Unknown Organization [id number]:[facility] [place] [address] [place] [address] Laboratory Report Ordering Provider Test Date Status BIRDIE,ANTWAN 10/07/2021 07:42:00 Final Observation Date Value Abnormality Reference (Units ) Status PT 10/07/2021 07:42:00 20.6 Above high normal 11 .5-14.6 (seconds) Final INR 10/07/2021 07:42:00 1.76 Above high normal 0. 84-1.14 Final Performing Location [facility] [place] [address] [place] [address]
--- OUTSIDE RECORDS SUMMARY | 2023-02-21 17:47 | External Medical Summary ---
Author Name Unknown Address Unknown Organization [id number]:[facility] [place] [address] Laboratory Report Ordering Provider Test Date Status DEIDRA ZAZUETA 10/30/2021 06:30:00 Final Observation Date Value Abnormality Reference (Units ) Status WBC, Total 10/30/2021 06:30:00 6.94 4.00-10.8 0 (K/uL) Final RBC 10/30/2021 06:30:00 5.49 Above high normal 4. 50-5.25 (M/uL) Final Hemoglobin 10/30/2021 06:30:00 16.1 14.0-16.8 (g/dL) Final HCT 10/30/2021 06:30:00 46.6 40.0-48.4 (%) Final MCV 10/30/2021 06:30:00 84.9 82.0-99.5 (fL) Final MCH 10/30/2021 06:30:00 29.3 27.0-34.0 (pg) Final MCHC 10/30/2021 06:30:00 34.5 32.0-36.0 (g/dL) Final RDW 10/30/2021 06:30:00 14.7 11.5-15.5 (%) Final Platelets 10/30/2021 06:30:00 218 140-400 (K /uL) Final MPV 10/30/2021 06:30:00 8.6 6.6-11.1 ( fL) Final Performing Location [facility] [place] [address]
--- OUTSIDE RECORDS SUMMARY | 2023-02-21 17:47 | External Medical Summary ---
Author Name Unknown Address Unknown Organization K09:[facility] [place] [address] Laboratory Report Ordering Provider Test Date Status DEIDRA ZAZUETA 10/23/2021 06:30:00 Final Observation Date Value Abnormality Reference (Units ) Status WBC, Total 10/23/2021 06:30:00 7.67 4.00-10.8 0 (K/uL) Final RBC 10/23/2021 06:30:00 5.39 Above high normal 4. 50-5.25 (M/uL) Final Hemoglobin 10/23/2021 06:30:00 15.6 14.0-16.8 (g/dL) Final HCT 10/23/2021 06:30:00 45.4 40.0-48.4 (%) Final MCV 10/23/2021 06:30:00 84.2 82.0-99.5 (fL) Final MCH 10/23/2021 06:30:00 28.9 27.0-34.0 (pg) Final MCHC 10/23/2021 06:30:00 34.4 32.0-36.0 (g/dL) Final RDW 10/23/2021 06:30:00 14.6 11.5-15.5 (%) Final Platelets 10/23/2021 06:30:00 317 140-400 (K /uL) Final MPV 10/23/2021 06:30:00 8.6 6.6-11.1 ( fL) Final Performing Location [facility] [place] [address]
--- OUTSIDE RECORDS SUMMARY | 2023-02-21 17:47 | External Medical Summary | Summary of Care ---
Author Name Unknown Organization [place] [address] Care Team Providers Care Community Health Specialist Name Role Phone Lanette Roman MD Primary Care Provider [phone] Reason for Visit * Reason Onset Date Comments Appointment 11/07/2021 Encounter Details Date Type Department Care Team Description 11/07/2021 Telephone [facility] [place] [address] [place] [address] Specified, Erica No [facility] [address] [place] [id number] Appointment Allergies No known active allergiesdocumented as of this encounter (statuses as of 11/07/2021) Medications Medication Sig Dispensed Refills Start Date [...] Active DilTIAZem HCl ER Beads 240 MG [id number]:Ch ronic atrial fibrillation (HCC) TAKE ONE CAPSULE [...] as of this encounter (statuses as of 11/07/2021) Active Problems Problem Noted Date Gastroesophageal reflux disease without esophagitis 10/04/2021 Vertebral osteomyelitis 09/30/2021 Epidural abscess 09/30/2021 HTN, goal below 140/90 04/13/2017 Obesity, morbid (more than 100 lbs over ideal weight or BMI > 40) 04/13/2017 Hypothyroidism 04/13/2017 Atrial fibrillation 04/05/2017 documented as of this encounter (statuses as of 11/07/2021) Social History Tobacco Use Types Packs/Day Years [...] encounter Miscellaneous Notes * Telephone Encounter - Estefanía Whatley LPN - 11/07/2021 9:36 AM EDT Danielle from [facility] calling to confirm appt 11/13/2021 documented in this encounter Plan of Treatment Upcoming Encounters Date Type Specialty Care Team Description 11/13/2021 Office Visit Neurological Surgery Junior Celeste MD [address] [facility] [place] [address] 11/17/2021 Telemedicine Infectious Disease Hilario Lozano, DO [address] [place], [place] [id number] Health Maintenance Due Date Last Done Comments [...] BASIC METABOLIC PANEL (BMP) FOR HTN YEARLY 11/06/2022 11/06/2021, 10/30/2021, 10/23/2021, Additional history exists DIABETES SCREEN EVERY 3 YRS-AGE 45 AND ABOVE 11/06/2024 11/06/2021, 10/30/2021, 10/23/2021, Additional history exists GARDASIL-HPV IMMUNIZATION SERIES Aged [...] Documents on File Type Date Recorded Patient 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 Care Teams Community Health Specialist Relationship Specialty Start Date End Date Lanette Roman MD [address] [place] [address] [place] [address] PCP - General 12/26/05 documented as of this encounter
--- OUTSIDE RECORDS SUMMARY | 2023-02-21 17:47 | External Medical Summary ---
Author Name Unknown Address Unknown Organization [id number]:[facility] [place] - [address] [place] [address] Laboratory Report Ordering Provider Test Date Status JIMY TORRES 10/08/2021 07:54:00 Final Observation Date Value Abnormality Reference (Units ) Status BUN 10/08/2021 07:54:00 8 6-20 (mg/dL) Final Creatinine 10/08/2021 07:54:00 0.7 0.6-1.2 (mg/dL) Final Glomerular filtration rate/1.73 sq M.predicted [Volume Rate/Area] in Serum, Plasma or Blood by Creatinine-based formula (CKD-EPI) 10/08/2021 07:54:00 >90 >=60 (mL/min) Final Performing Location [facility] - [address] [place] [address]
--- OUTSIDE RECORDS SUMMARY | 2023-02-21 17:47 | External Medical Summary | Summary of Care ---
Author Name Unknown Organization [place] [address] Care Team Providers Care Roads Superintendent Name Role Phone Lanette Roman MD Primary Care Provider [phone] [phone] Encounter Details Date Type Department Care Team Description 10/29/2021 Orders Only Lab [facility] [place] [address] [place] [address] David Hsieh, DO [address] [place] [address] Routine medical exam* Allergies No known active allergiesdocumented as of this encounter (statuses as of 10/29/2021) Medications Medication Sig Dispensed Refills Start Date [...] Active DilTIAZem HCl ER Beads 240 MG [id number]:Ch ronic atrial fibrillation (HCC) TAKE ONE CAPSULE [...] as of this encounter (statuses as of 10/29/2021) Active Problems Problem Noted Date Gastroesophageal reflux disease without esophagitis 10/04/2021 Vertebral osteomyelitis 09/30/2021 Epidural abscess 09/30/2021 HTN, goal below 140/90 04/13/2017 Obesity, morbid (more than 100 lbs over ideal weight or BMI > 40) 04/13/2017 Hypothyroidism 04/13/2017 Atrial fibrillation 04/05/2017 documented as of this encounter (statuses as of 10/29/2021) Social History Tobacco Use Types Packs/Day Years [...] Encounters Date Type Specialty Care Team Description 10/30/2021 Laboratory Laboratory Processing Surjit [facility] [address] [place] [address] 11/13/2021 Office Visit Neurological Surgery Junior Celeste MD [address] [facility] [place] [address] Scheduled Orders Name Type Priority Associated Diagnoses Orde r Schedule BASIC METABOLIC PANEL Lab Routine Routine medical exam Expected: 10/30/2021, Expires: 10/29/2022 CBC Lab Routine Routine medical exam Expected: 10/30/2021, Expires: 10/29/2022 Health Maintenance Due Date Last Done Comments [...] BASIC METABOLIC PANEL (BMP) FOR HTN YEARLY 10/23/2022 10/23/2021, 10/16/2021, 10/11/2021, Additional history exists DIABETES SCREEN EVERY 3 YRS-AGE 45 AND ABOVE 10/23/2024 10/23/2021, 10/16/2021, 10/11/2021, Additional history exists GARDASIL-HPV IMMUNIZATION SERIES Aged [...] on File Type Date Recorded Patient Rn Relief Charge Expl anation Advanced Directive Advanced Directive Advanced [...] and were consensually agreed upon. Care Teams Roads Superintendent Relationship Specialty Start Date End Date Lanette Roman MD [address] [place] [address] [place] [address] PCP - General 12/26/05 documented as of this encounter
--- OUTSIDE RECORDS SUMMARY | 2023-02-21 17:47 | External Medical Summary ---
Author Name Unknown Address Unknown Organization K09:[facility] [place] [address] Laboratory Report Ordering Provider Test Date Status DEIDRA ZAZUETA 11/06/2021 06:06:00 Final Observation Date Value Abnormality Reference (Units ) Status BUN 11/06/2021 06:06:00 9 6-20 (mg/dL) Final Creatinine 11/06/2021 06:06:00 0.8 0.6-1.2 (mg/dL) Final Glomerular filtration rate/1.73 sq M.predicted [Volume Rate/Area] in Serum, Plasma or Blood by Creatinine-based formula (CKD-EPI) 11/06/2021 06:06:00 >90 >=60 (mL/min) Final Performing Location [facility] [place] [address]
--- OUTSIDE RECORDS SUMMARY | 2023-02-21 17:47 | External Medical Summary | Summary of Care ---
Author [place] [address] Care Team Providers Care Metal Furniture Polisher Name Role Phone Lanette Roman MD Primary Care Provider [phone] Encounter Details Date Type Department Care Team Description 11/17/2021 Telemedicine Infectious Disease, [facility] [address] [place] [address] Hilario Lozano, DO [address], [place] [id number] Vertebral osteomyelitis (HCC)* Allergies No known active [...] Active DilTIAZem HCl ER Beads 240 MG [id number]:Chron ic atrial fibrillation (HCC) TAKE ONE CAPSULE [...] No 09/29/2021 documented as of this encounter Patient Instructions * Patient Instructions* Hilario Lozano DO - 11/17/2021 4:20 PM EDT Images from the original note were not included. It is your responsibility to read and follow these instructions Be sure to do the following: Keep all appointments with all of your healthcare providers Keep a current telephone number on file with us Complete all bloodwork, imaging or other testing on time Contact us before you run out of any medication that we prescribed Use the patient portal to communicate with us (if possible) Contact us immediately if any of the following occur: There is something that you do not understand You are expecting a medication or refill but have not received it You have any issues with medications that we prescribe You have a significant change in your health (including ) You have a significant change in your medications You need help with scheduling tests or appointments You do not have a confirmed follow up appointment Please be aware of the following: Failure to request refills, complete labs/imaging or keep appointments could result in adverse health outcomes It may take time for us to respond to your calls/messages. If you do not get an immediate response, continue to contact us If you experience any new/worsening/concerning symptoms, seek immediate medical attention In an emergency, do not wait for a reply from us. Instead, go to the nearest Emergency Department immediately (call 911 if necessary) documented in this encounter Progress Notes * Hilario Lozano DO - 11/17/2021 4:20 PM EDT After connecting to the patient via telephone, the patient was identified by name and date of . Patient was then informed that this was a telephone call only visit. The patient agreed to participate. Visit Disposition: Routine follow-up Total call duration was 5 minutes. INFECTIOUS DISEASE, [facility] [address]: Anton Nelson is a 61 year old male here for follow up of OM Background Patient was in seen in [facility] in September of 2021 ([address] Malloy then myself). The patient was initially diagnosed with Enterococcus bacteremia at an OSH earlier in September and was treated with IV Ampicillin. Bacteremia was complicated by discitis/SEA. The patient was then admitted to [facility] later in September, at which time he was found to have psoas abscesses. IR drainage was pursued and cultures were ultimately negative. Continued treatment with Ampicillin was recommended. End of therapydate was 11/14/2021. Current status The patient reports feeling good. No complaints today. No back pain or cauda equina symptoms. No issues with PICC. Tolerating Ampicillin well. Pt denies any other interval changes in health/medications since discharge. Review of patient's allergies indicates: No Known Allergies Current Outpatient Medications Medication Sig Dispense Refill escitalopram (LEXAPRO) 10 MG Tablet Take 10 mg by mouth daily. levothyroxine (SYNTHROID) 50 MCG Tablet Take 50 mcg by mouth daily first thing in the morning. (at least 30 min prior to breakfast or other meds) pantoprazole (PROTONIX) 40 MG Pack Take 40 mg by mouth daily. furosemide (LASIX) 40 MG Tablet Take 1 Tab by mouth daily. 90 Tab 3 rivaroxaban (XARELTO) 20 MG Tablet Take 1 Tab by mouth daily with dinner. DilTIAZem HCl ER Beads 240 MG CP24 TAKE ONE CAPSULE BY MOUTH DAILY 90 Cap 3 Klor-Con M20 20 MEQ Oral Tablet Extended Release (Potassium Chloride Radha ER) TAKE 1 TABLET BY MOUTH EVERY DAY 90 Tab 3 Metoprolol Succinate ER 100 MG Oral Tablet Extended Release 24 Hour (toPROL XL) Take by mouth 1Tablet in the morning AND 1 Tablet before bedtime. 60 Tablet 1 No current facility-administered medications for this visit. Patient Active Problem List Diagnosis Code Atrial fibrillation ([facility]) I48.91 HTN, goal below 140/90 I10 Obesity, morbid (more than 100 lbs over ideal weight or BMI > 40) ([facility]) E66.01 Hypothyroidism E03.9 Vertebral osteomyelitis ([facility]) M46.20 Epidural abscess G06.2 Gastroesophageal reflux disease without esophagitis K21.9 Review of Systems: As reviewed in HPI; a complete ROS was otherwise negative There were no vitals taken for this visit. PHYSICAL EXAM: No vitals taken due to nature of visit General/Constitutional: appears at stated age, NAD, nontoxic, sitting up in chair Head: AT, NC, no supplemental oxygen in place Eyes: pupils equal, sclera anicteric, EOMI, no conjunctival injection ENT: dentition good, MMM, trachea midline, hearing grossly nml Resp: not tachypneic, nml effort, symmetric chest rise, no accessory muscle use Derm: skin appears dry, no visible rash, no visible jaundice Neuro: alert, oriented, speaking in full sentences, speech intelligible LABS: Labs reviewed as indicated below: Component Latest Ref Rng & Units 11/13/2021 BUN 6 - 20 mg/dL 8 Creatinine 0.6 - 1.2 mg/dL 0.9 Estimated Glomerular Filtration Rate >=60 mL/min >90 Sodium 135 - 146 mmol/L 141 Potassium 3.5 - 5.1 mmol/L 3.7 Chloride 98 - 107 mmol/L 100 CO2 22 - 32 mmol/L 30 Anion Gap 7 - 15 mmol/L 11 Glucose 70 - 120 mg/dL 87 Calcium 8.4 - 10.2 mg/dL 9.0 WBC 4.00 - 10.80 K/uL 5.23 RBC 4.50 - 5.25 M/uL 4.94 HGB 14.0 - 16.8 g/dL 14.3 HCT 40.0 - 48.4 % 42.7 MCV 82.0 - 99.5 fL 86.4 MCH 27.0 - 34.0 pg 28.9 MCHC 32.0 - 36.0 g/dL 33.5 RDW 11.5 - 15.5 % 15.1 PLT 140 - 400 K/uL 220 MPV 6.6 - 11.1 fL 8.6 MICROBIOLOGY DATA: (Reviewed; most pertinent / recent below; see EMR for further info) [facility] Blood cultures on 09/12/2021 in 4/4 bottles Procedure Result Verified Site Blood Culture Aerobic Final 09/15/21-100 Organism 1 Enterococcus faecalis Sens Sensitivities to Follow Blood Culture Anaerobic Final 09/15/21-1002 Organism 1 Enterococcus faecalis Sens Sensitivities to Follow Phoned positive Blood Culture Gram Stain report to [facility] (DIOR KOEHLER) on 09/13/21 at 1104 [place] [id number]. [place] [id number]. E faecalis RX M.I.C. --- --------- Ampicillin S <=2 Daptomycin S 1 Gent Synergy S <=500 Penicillin S 8 Strep Synergy R >1000 Vancomycin S 2 Enterococcus faecalis: Positive Combo 33 Streptomycin Synergy Screen R Gentamicin Synergy Screen S S = SENSITIVE I = INTERMEDIATE R = RESISTANT CULTURE, WOUND, DEEP, AEROBIC AND ANAEROBIC Order: [id number] Status: Final result Visible to patient: No (inaccessible in MyChart) Next appt: 12/23/2021 at 09:20 AM in *Neuro* (Owen Washington PA-C) 0 Result Notes Culture Growth No aerobic or anaerobic growth Stain Description Few Polymorphonuclear leukocytes No organisms seen Resulting Agency: Specimen Collected: 10/03/21 10:34 Last Resulted: 10/08/21 12:15 IMAGING: (Reviewed; most pertinent / recent below; see EMR for further info) IR ASPIRATION ABSCESS/COLLECTION Narrative: PROCEDURE: CT guided psoas muscle aspiration. INDICATION: Patient is a 61-year-old male with concern for psoas abscess here for psoas muscle aspiration under CT guidance. ATTENDING (OPERATING PHYSICIAN): William Mason MD SCRUBBED RESIDENT (OPERATING PHYSICIAN): [place] Carreno MD SUPPORTING PROVIDER (FORESTRY FIRE AID): None. CONSENT: After a detailed discussion of the procedure, risks, benefits and alternative treatment options, informed consent was obtained. TIME OUT: A time out procedure was performed. The patient's identification was verified. Informed consent with agreement of procedure, site and position was obtained. All necessary equipment was available prior to procedure. CONTRAST: No contrast was administered. COMPLICATIONS: None. ANESTHESIA: Local lidocaine. IV Fentanyl. SEDATION TIME: N/A MEDICATIONS: See MAR PROCEDURE DESCRIPTION: After survey CT images of the abdomen were performed, the collection in the left psoas muscle was studied. Then the access site was selected in the left lower back and the sitewas prepped and draped in the usual sterile fashion. The skin and deep soft tissues were anesthetized and using image guidance, a 20 gauge cannulated needle was inserted into the collection. Approximately 2 mL of blood was removed, placed in empty vials and sent to microbiology. The access was removed and the site was dressed. The procedure was performed under the personal supervision of Dr. Mason who was present for the salinas and critical portions of the procedure and immediately available for the entire procedure. FINDINGS: Survey CT images demonstrate a questionable fluid collection in the left psoas muscle. Further imaging shows that the needle is in the anterior left psoas muscle. After aspiration, there is no significant residual collection. No complication noted on post placement imaging. Impression: IMPRESSION: CT-guided percutaneous aspiration in the left psoas muscle. PLAN: Follow-up of culture results and appropriate management per the primary service. I have personally reviewed this examination and agree with the resident/fellow physician's interpretation. IMPRESSION 1. NVO/SEA/psoas abscess 2. Enterococcal bacteremia PLAN 1. Follow up CRP & MRI 2. If above WNL, will d/c ABX 3. Follow up as needed Hilario Lozano DO Infectious Disease, [place] [address] [place] [address] This note may have been completed in part utilizing voice recognition software. Random word insertions, pronoun errors, and incomplete sentences are an occasional consequence of this system due to software limitations, and ambient noise. Any questions or concerns about the content, text, or information contained within the body of this dictation should be directly addressed to the provider for clarification. Topic(s) discussed at today's visit included (but may not have been limited to) the following: SEA, OPAT, IV ABX. The following provider(s) / service(s) were CC on this note: PCP. Unless specifically noted above, all health maintenance is deferred to the patient's PCP. 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 Care Teams Metal Furniture Polisher Relationship Specialty Start Date End Date Lanette Roman MD [address] [place] [address] [place] [id number] PCP - General 12/26/05 documented as of this encounter
--- OUTSIDE RECORDS SUMMARY | 2023-02-21 17:47 | External Medical Summary | Summary of Care ---
Author Name Unknown Organization [place] [address] Care Team Providers Care Director Medical Affairs Name Role Phone Lanette Roman MD Primary Care Provider [phone] Encounter Details Date Type Department Care Team Description 11/12/2021 Orders Only Lab Mobile Phlebotomy [facility] [address] [place] [address] David Hsieh, DO [address] [place] [address] Routine medical exam* Allergies No known active allergiesdocumented as of this encounter (statuses as of 11/12/2021) Medications Medication Sig Dispensed Refills Start Date [...] Active DilTIAZem HCl ER Beads 240 MG [id number]:Ch ronic atrial fibrillation (HCC) TAKE ONE CAPSULE [...] as of this encounter (statuses as of 11/12/2021) Active Problems Problem Noted Date Gastroesophageal reflux disease without esophagitis 10/04/2021 Vertebral osteomyelitis 09/30/2021 Epidural abscess 09/30/2021 HTN, goal below 140/90 04/13/2017 Obesity, morbid (more than 100 lbs over ideal weight or BMI > 40) 04/13/2017 Hypothyroidism 04/13/2017 Atrial fibrillation 04/05/2017 documented as of this encounter (statuses as of 11/12/2021) Social History Tobacco Use Types Packs/Day Years [...] Date Type Specialty Care Team Description 11/13/2021 Laboratory Laboratory Processing [facility] [address] [place] [address] 11/13/2021 Office Visit Neurological Surgery Junior Celeste MD [address] [facility] [place] [address] 11/17/2021 Telemedicine Infectious Disease Hilario Lozano, [address] [place] [address] Scheduled Orders Name Type Priority Associated Diagnoses Orde r Schedule BASIC METABOLIC PANEL Lab Routine Routine medical exam Expected: 11/13/2021, Expires: 11/12/2022 CBC Lab Routine Routine medical exam Expected: 11/13/2021, Expires: 11/12/2022 Health Maintenance Due Date Last Done Comments [...] Documents on File Type Date Recorded Patient Discharge Rn Expl anation Advanced Directive Advanced Directive Advanced [...] and were consensually agreed upon. Care Teams Director Medical Affairs Relationship Specialty Start Date End Date Lanette Roman MD [address] [place] [address] [place] [id number] PCP - General 12/26/05 documented as of this encounter
--- OUTSIDE RECORDS SUMMARY | 2023-02-21 17:47 | External Medical Summary ---
Author Name Unknown Address Unknown Organization [id number]:LABORATORY [facility] [place] [address] Laboratory Report Ordering Provider Test Date Status BIRDIE,ANTWAN 10/06/2021 05:20:00 Final Observation Date Value Abnormality Reference (Units ) Status WBC, Total 10/06/2021 05:20:00 7.52 4.00-10.80 (K/uL) Final RBC 10/06/2021 05:20:00 5.26 Above high normal 4.50-5.25 (M/uL) Final Hemoglobin 10/06/2021 05:20:00 15.5 14.0-16.8 (g/dL) Final HCT 10/06/2021 05:20:00 45.2 40.0-48.4 (%) Final MCV 10/06/2021 05:20:00 85.9 82.0-99.5 (fL) Final MCH 10/06/2021 05:20:00 29.5 27.0-34.0 (pg) Final MCHC 10/06/2021 05:20:00 34.3 32.0-36.0 (g/dL) Final RDW 10/06/2021 05:20:00 13.8 11.5-15.5 (%) Final MPV 10/06/2021 05:20:00 8.0 6.6-11.1 (fL) Final Nucleated erythrocytes/100 leukocytes [Ratio] in Blood by Automated count 10/06/2021 05:20:00 0 <=0 (/100 WBCs) Final Platelets 10/06/2021 05:20:00 240 140-400 (K/uL) Final Performing Location LABORATORY [facility] - [address] [place] [address]
--- OUTSIDE RECORDS SUMMARY | 2023-02-21 17:47 | External Medical Summary | Summary of Care ---
Author Name Unknown Organization [place] [address] Care Team Providers Care Field Artillery Officer Name Role Phone Lanette Roman MD Primary Care Provider [phone] Encounter Details Date Type Department Care Team Description 10/15/2021 Orders Only Lab Mobile Phlebotomy [facility] [address] [place] [address] David Hsieh, DO [address] [place] [address] Routine medical exam* Allergies No known active allergiesdocumented as of this encounter (statuses as of 10/15/2021) Medications Medication Sig Dispensed Refills Start Date [...] Active DilTIAZem HCl ER Beads 240 MG [id number]:Ch ronic atrial fibrillation (HCC) TAKE ONE CAPSULE [...] as of this encounter (statuses as of 10/15/2021) Active Problems Problem Noted Date Gastroesophageal reflux disease without esophagitis 10/04/2021 Vertebral osteomyelitis 09/30/2021 Epidural abscess 09/30/2021 HTN, goal below 140/90 04/13/2017 Obesity, morbid (more than 100 lbs over ideal weight or BMI > 40) 04/13/2017 Hypothyroidism 04/13/2017 Atrial fibrillation 04/05/2017 documented as of this encounter (statuses as of 10/15/2021) Social History Tobacco Use Types Packs/Day Years [...] Encounters Date Type Specialty Care Team Description 10/16/2021 Laboratory Laboratory Processing [facility] [place] [address] [place] [address] 11/13/2021 Office Visit Neurological Surgery Junior Celeste MD [address] [facility] [place] [address] Scheduled Orders Name Type Priority Associated Diagnoses Orde r Schedule CBC Lab Routine Routine medical exam Expected: 10/16/2021, Expires: 10/15/2022 BASIC METABOLIC PANEL Lab Routine Routine medical exam Expected: 10/16/2021, Expires: 10/15/2022 Health Maintenance Due Date Last Done Comments [...] 10/11/2022 10/11/2021, 10/08/2021, 10/07/2021, Additional history exists TSH FOR THYROID MEDICATION MONITORING YEARLY 10/15/2022 10/15/2021, 10/26/2007 DIABETES SCREEN EVERY 3 YRS-AGE 45 AND [...] Documents on File Type Date Recorded 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 Care Teams Field Artillery Officer Relationship Specialty Start Date End Date Lanette Roman MD [address] [place] [address] [place] [id number] PCP - General 12/26/05 documented as of this encounter
--- OUTSIDE RECORDS SUMMARY | 2023-02-21 17:47 | External Medical Summary ---
Author Name Unknown Address Unknown Organization [id number]:LAB[facility]ATORY [facility] [address] [place] [address] Laboratory Report Ordering Provider Test Date Status JIMY TORRES 10/06/2021 05:20:00 Final Observation Date Value Abnormality Reference (Units ) Status BUN 10/06/2021 05:20:00 7 6-20 (mg/dL) Final Creatinine 10/06/2021 05:20:00 0.8 0.6-1.2 (mg/dL) Final Glomerular filtration rate/1.73 sq M.predicted [Volume Rate/Area] in Serum, Plasma or Blood by Creatinine-based formula (CKD-EPI) 10/06/2021 05:20:00 >90 >=60 (mL/min) Final Performing Location LABORATORY [facility] - [address] [place] [address]
--- OUTSIDE RECORDS SUMMARY | 2023-02-21 17:47 | External Medical Summary ---
Author Name Unknown Address Unknown Organization [id number]:LABORATORY [place] [place] [address] Laboratory Report Ordering Provider Test Date Status DEIDRA ZAZUETA 11/13/2021 06:15:00 Final Observation Date Value Abnormality Reference (Units ) Status WBC, Total 11/13/2021 06:15:00 5.23 4.00-10.8 0 (K/uL) Final RBC 11/13/2021 06:15:00 4.94 4.50-5.25 (M/uL) Final Hemoglobin 11/13/2021 06:15:00 14.3 14.0-16.8 (g/dL) Final HCT 11/13/2021 06:15:00 42.7 40.0-48.4 (%) Final MCV 11/13/2021 06:15:00 86.4 82.0-99.5 (fL) Final MCH 11/13/2021 06:15:00 28.9 27.0-34.0 (pg) Final MCHC 11/13/2021 06:15:00 33.5 32.0-36.0 (g/dL) Final RDW 11/13/2021 06:15:00 15.1 11.5-15.5 (%) Final Platelets 11/13/2021 06:15:00 220 140-400 (K /uL) Final MPV 11/13/2021 06:15:00 8.6 6.6-11.1 ( fL) Final Performing Location [facility]ATORY [place] [address]
--- OUTSIDE RECORDS SUMMARY | 2023-02-21 17:47 | External Medical Summary ---
Author Name Unknown Address Unknown Organization K09:LABORATORY [place] [address] Laboratory Report Ordering Provider Test Date Status DEIDRA ZAZUETA 10/16/2021 06:35:00 Final Observation Date Value Abnormality Reference (Units ) Status BUN 10/16/2021 06:35:00 14 6-20 (mg/dL) Final Creatinine 10/16/2021 06:35:00 0.8 0.6-1.2 (mg/dL) Final Glomerular filtration rate/1.73 sq M.predicted [Volume Rate/Area] in Serum, Plasma or Blood by Creatinine-based formula (CKD-EPI) 10/16/2021 06:35:00 >90 >=60 (mL/min) Final Performing Location LABORATORY [place] [address]
--- OUTSIDE RECORDS SUMMARY | 2023-02-21 17:47 | External Medical Summary | Summary of Care ---
Author Name Unknown Organization [place] [address] Care Team Providers Care Classics Professor Name Role Phone Lanette Roman MD Primary Care Provider [phone] Encounter Details Date Type Department Care Team Description 10/22/2021 Orders Only Lab Mobile Phlebotomy [facility] [address] [place] [address] David Hsieh, DO [address] [place] [address] Routine medical exam* Allergies No known active allergiesdocumented as of this encounter (statuses as of 10/22/2021) Medications Medication Sig Dispensed Refills Start Date [...] Active DilTIAZem HCl ER Beads 240 MG [id number]:Ch ronic atrial fibrillation (HCC) TAKE ONE CAPSULE [...] as of this encounter (statuses as of 10/22/2021) Active Problems Problem Noted Date Gastroesophageal reflux disease without esophagitis 10/04/2021 Vertebral osteomyelitis 09/30/2021 Epidural abscess 09/30/2021 HTN, goal below 140/90 04/13/2017 Obesity, morbid (more than 100 lbs over ideal weight or BMI > 40) 04/13/2017 Hypothyroidism 04/13/2017 Atrial fibrillation 04/05/2017 documented as of this encounter (statuses as of 10/22/2021) Social History Tobacco Use Types Packs/Day Years [...] Encounters Date Type Specialty Care Team Description 10/23/2021 Laboratory Laboratory Processing [place] [facility] [address] [place] [address] 11/13/2021 Office Visit Neurological Surgery Junior Celeste MD [address] [facility] [place] [address] Scheduled Orders Name Type Priority Associated Diagnoses Orde r Schedule BASIC METABOLIC PANEL Lab Routine Routine medical exam Expected: 10/23/2021, Expires: 10/22/2022 CBC Lab Routine Routine medical exam Expected: 10/23/2021, Expires: 10/22/2022 Health Maintenance Due Date Last Done Comments [...] Primary Routine general medical examination at a [facility] care facility documented in this encounter Advance Directives Documents on File Type Date Recorded 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 Care Teams Classics Professor Relationship Specialty Start Date End Date Lanette Roman MD [address] [place] [address] [place] [address] PCP - General 12/26/05 documented as of this encounter
--- OUTSIDE RECORDS SUMMARY | 2023-02-21 17:48 | External Medical Summary ---
Author Name Unknown Address Unknown Organization [id number]:[facility] [place] [address] [place] [address] Laboratory Report Ordering Provider Test Date Status ANTWAN PACKER 10/02/2021 08:56:00 Final Observation Date Value Abnormality Reference (Units ) Status PT 10/02/2021 08:56:00 14.7 Above high normal 11 .5-14.6 (seconds) Final INR 10/02/2021 08:56:00 1.13 0.84-1.14 Final Performing Location [facility] [place] [address] [place] [address]
--- OUTSIDE RECORDS SUMMARY | 2023-02-21 17:48 | External Medical Summary ---
Author Name Unknown Address Unknown Organization [id number]:LAB[facility]ORY [facility] [place] [address] [place] [address] Laboratory Report Ordering Provider Test Date Status JIMY TORRES 10/04/2021 03:21:00 Final Observation Date Value Abnormality Reference (Units ) Status BUN 10/04/2021 03:21:00 8 6-20 (mg/dL) Final Creatinine 10/04/2021 03:21:00 0.7 0.6-1.2 (mg/dL) Final Glomerular filtration rate/1.73 sq M.predicted [Volume Rate/Area] in Serum, Plasma or Blood by Creatinine-based formula (CKD-EPI) 10/04/2021 03:21:00 >90 >=60 (mL/min) Final Performing Location LAB[facility]ATORY [facility] - [address] [place] [address]
--- OUTSIDE RECORDS SUMMARY | 2023-02-21 17:48 | External Medical Summary ---
Author Name Unknown Address Unknown Organization K01:LABORATORY [facility] [place] - [address] [place] [address] Laboratory Report Ordering Provider Test Date Status JMIY TORRES 09/30/2021 01:45:14 Final Observation Date Value Abnormality Reference (Units ) Status SARS Coronavirus 2 09/30/2021 01:45:14 Negative N egative Final Performing Location LABORATORY [facility] - [address] [place] [address]
--- OUTSIDE RECORDS SUMMARY | 2023-02-21 17:48 | External Medical Summary ---
Author Name Unknown Address Unknown Organization K01:LABORATORY [facility] [place] - [address] [place] [address] Laboratory Report Ordering Provider Test Date Status ANTWAN PACKER 10/01/2021 08:18:00 Final Observation Date Value Abnormality Reference (Units) Status Bacteria identified in Unspecified specimen by Culture 10/01/2021 08:18:00 No aerobic or anaerobic growth Final Gram Stain 10/01/2021 08:18:00 No polymorphonuclear leukocytes seen Final Gram Stain 10/01/2021 08:18:00 No organisms seen Final Performing Location [facility] - [address] [place] [address]
--- OUTSIDE RECORDS SUMMARY | 2023-02-21 17:48 | External Medical Summary ---
Author Name Unknown Address Unknown Organization K01:LAB[facility]ATORY [facility] [place] [address] [place] [address] Laboratory Report Ordering Provider Test Date Status JIMY TORRES 10/05/2021 05:17:00 Final Observation Date Value Abnormality Reference (Units ) Status BUN 10/05/2021 05:17:00 7 6-20 (mg/dL) Final Creatinine 10/05/2021 05:17:00 0.7 0.6-1.2 (mg/dL) Final Glomerular filtration rate/1.73 sq M.predicted [Volume Rate/Area] in Serum, Plasma or Blood by Creatinine-based formula (CKD-EPI) 10/05/2021 05:17:00 >90 >=60 (mL/min) Final Performing Location [facility] - [address] [place] [address]
--- OUTSIDE RECORDS SUMMARY | 2023-02-21 17:48 | External Medical Summary ---
Author Name Unknown Address Unknown Organization K01:LABORATORY [facility] [place] - [address] [place] [address] Laboratory Report Ordering Provider Test Date Status JIMY TORRES 10/03/2021 07:59:00 Final Observation Date Value Abnormality Reference (Units ) Status BUN 10/03/2021 07:59:00 6 6-20 (mg/dL) Final Creatinine 10/03/2021 07:59:00 0.7 0.6-1.2 (mg/dL) Final Glomerular filtration rate/1.73 sq M.predicted [Volume Rate/Area] in Serum, Plasma or Blood by Creatinine-based formula (CKD-EPI) 10/03/2021 07:59:00 >90 >=60 (mL/min) Final Performing Location [facility] - [address] [place] [address]
--- OUTSIDE RECORDS SUMMARY | 2023-02-21 17:48 | External Medical Summary ---
Author Name Unknown Address Unknown Organization K01:LABORATORY [facility] [place] - [address] [place] [address] Laboratory Report Ordering Provider Test Date Status BIRDIE,ANTWAN 09/30/2021 17:06:00 Final Observation Date Value Abnormality Reference (Units ) Status Heparin, unfractionated level 09/30/2021 17:06:00 <0.10 <0.10 (IU/mL) Final Performing Location LABORATORY C - [address] [facility] [address]
--- OUTSIDE RECORDS SUMMARY | 2023-02-21 17:48 | External Medical Summary ---
Author Name Unknown Address Unknown Organization K01:LABORATORY [facility] [place] [address] [place] [address] Laboratory Report Ordering Provider Test Date Status ANTWAN PACKER 10/03/2021 10:34:00 Final Observation Date Value Abnormality Reference (Units) Status Bacteria identified in Unspecified specimen by Culture 10/03/2021 10:34:00 No aerobic or anaerobic growth Final Gram Stain 10/03/2021 10:34:00 Few Polymorphonuclear leukocytes Final Gram Stain 10/03/2021 10:34:00 No organisms seen Final Performing Location [facility] - [address] [place] [address]
--- OUTSIDE RECORDS SUMMARY | 2023-02-21 17:48 | External Medical Summary ---
Author Name Unknown Address Unknown Organization K01:LAB[place]ATORY [facility] [place] [address] [place] [address] Laboratory Report Ordering Provider Test Date Status BIRDIE,ANTWAN 10/06/2021 05:20:00 Final Observation Date Value Abnormality Reference (Units ) Status PT 10/06/2021 05:20:00 20.0 Above high normal 11 .5-14.6 (seconds) Final INR 10/06/2021 05:20:00 1.69 Above high normal 0. 84-1.14 Final Performing Location LABORATORY [facility] [place] [address] [place] [address]
--- OUTSIDE RECORDS SUMMARY | 2023-02-21 17:48 | External Medical Summary ---
Author Name Unknown Address Unknown Organization K01:LABORATORY [facility] [place] - [facility] [address] [facility] [address] Laboratory Report Ordering Provider Test Date Status BIRDIE,ANTWAN 10/01/2021 15:46:00 Final Observation Date Value Abnormality Reference (Units ) Status WBC, Total 10/01/2021 15:46:00 9.74 4.00-10.80 (K/uL) Final RBC 10/01/2021 15:46:00 4.70 4.50-5.25 (M/uL) Final Hemoglobin 10/01/2021 15:46:00 14.0 14.0-16.8 (g/dL) Final HCT 10/01/2021 15:46:00 40.2 40.0-48.4 (%) Final MCV 10/01/2021 15:46:00 85.5 82.0-99.5 (fL) Final MCH 10/01/2021 15:46:00 29.8 27.0-34.0 (pg) Final MCHC 10/01/2021 15:46:00 34.8 32.0-36.0 (g/dL) Final RDW 10/01/2021 15:46:00 13.5 11.5-15.5 (%) Final MPV 10/01/2021 15:46:00 8.3 6.6-11.1 (fL) Final Nucleated erythrocytes/100 leukocytes [Ratio] in Blood by Automated count 10/01/2021 15:46:00 0 <=0 (/100 WBCs) Final Platelets 10/01/2021 15:46:00 310 140-400 (K/uL) Final Performing Location LABORATORY [facility] [place] - [address] [facility] [address]
--- OUTSIDE RECORDS SUMMARY | 2023-02-21 17:48 | External Medical Summary ---
Author Name Unknown Address Unknown Organization K01:LABORATORY [facility] [place] - [address] [place] [address] Laboratory Report Ordering Provider Test Date Status CHARITY WILLIAMSON 09/30/2021 02:24:00 Final Observation Date Value Abnormality Reference (Units ) Status Heparin, unfractionated level 09/30/2021 02:24:00 0.75 Above high normal <0.10 (IU/mL) Final Performing Location LABORATORY [facility] [place] - [address] [facility] [address]
--- OUTSIDE RECORDS SUMMARY | 2023-02-21 17:48 | External Medical Summary ---
Author Name Unknown Address Unknown Organization K01:LABORATORY [facility] [place] - [facility] [place] [address] Laboratory Report Ordering Provider Test Date Status BIRDIE,ANTWAN 09/30/2021 17:06:00 Final Observation Date Value Abnormality Reference (Units ) Status WBC, Total 09/30/2021 17:06:00 7.80 4.00-10.80 (K/uL) Final RBC 09/30/2021 17:06:00 4.78 4.50-5.25 (M/uL) Final Hemoglobin 09/30/2021 17:06:00 14.0 14.0-16.8 (g/dL) Final HCT 09/30/2021 17:06:00 41.6 40.0-48.4 (%) Final MCV 09/30/2021 17:06:00 87.0 82.0-99.5 (fL) Final MCH 09/30/2021 17:06:00 29.3 27.0-34.0 (pg) Final MCHC 09/30/2021 17:06:00 33.7 32.0-36.0 (g/dL) Final RDW 09/30/2021 17:06:00 13.7 11.5-15.5 (%) Final MPV 09/30/2021 17:06:00 8.0 6.6-11.1 (fL) Final Nucleated erythrocytes/100 leukocytes [Ratio] in Blood by Automated count 09/30/2021 17:06:00 0 <=0 (/100 WBCs) Final Platelets 09/30/2021 17:06:00 317 140-400 (K/uL) Final Performing Location LABORATORY [facility] [place] - [address] [place] [address]
--- OUTSIDE RECORDS SUMMARY | 2023-02-21 17:48 | External Medical Summary ---
Author Name Unknown Address Unknown Organization K01:LABORATORY [facility] [place] - [address] [facility] [address] [facility] [address] Laboratory Report Ordering Provider Test Date Status BIRDIE,ANWTAN 09/30/2021 23:51:00 Final Observation Date Value Abnormality Reference (Units ) Status Heparin, unfractionated level 09/30/2021 23:51:00 0.40 Above high normal <0.10 (IU/mL) Final Performing Location LABORATORY [facility] [place] - [address] [facility] [address]
--- OUTSIDE RECORDS SUMMARY | 2023-02-21 17:48 | External Medical Summary ---
Author Name Unknown Address Unknown Organization K01:[place] [facility] [place] [address] [facility] [address] Laboratory Report Ordering Provider Test Date Status BIRDIE,ANTWAN 10/01/2021 15:46:00 Final Observation Date Value Abnormality Reference (Units ) Status PT 10/01/2021 15:46:00 15.0 Above high normal 11 .5-14.6 (seconds) Final INR 10/01/2021 15:46:00 1.16 Above high normal 0. 84-1.14 Final Performing Location [place] [facility] [place] [address] [place] [address]
--- OUTSIDE RECORDS SUMMARY | 2023-02-21 17:48 | External Medical Summary ---
Author Name Unknown Address Unknown Organization K01:LABORATORY [facility] [place] - [address] [place] [address] Laboratory Report Ordering Provider Test Date Status JIMY TORRES 09/30/2021 02:24:00 Final Observation Date Value Abnormality Reference (Units ) Status Bacteria identified in Unspecified specimen by Culture 09/30/2021 02:24:00 No growth Final Performing Location LABORATORY [facility] [place] - [address] [place] [address]
--- OUTSIDE RECORDS SUMMARY | 2023-02-21 17:48 | External Medical Summary ---
Author Name Unknown Address Unknown Organization K01:[facility]ATORY [facility] [place] [address] [place] [id number] Laboratory Report Ordering Provider Test Date Status BIRDIE,ANTWAN 10/04/2021 11:01:00 Final Observation Date Value Abnormality Reference (Units ) Status Heparin, unfractionated level 10/04/2021 11:01:00 <0.10 <0.10 (IU/mL) Final Performing Location LABORATORY [facility] - [address] [facility] [address]
--- OUTSIDE RECORDS SUMMARY | 2023-02-21 17:48 | External Medical Summary ---
Author Name Unknown Address Unknown Organization K01:LABORATORY [facility] [place] - [address] [place] [address] Laboratory Report Ordering Provider Test Date Status BIRDIE,ANTWAN 09/30/2021 17:06:00 Final Observation Date Value Abnormality Reference (Units ) Status aPTT panel - Platelet poor plasma 09/30/2021 17:06:00 39 Above high normal 21-38 (seconds) Final Performing Location LABORATORY [facility] - [address] [place] [address]
--- OUTSIDE RECORDS SUMMARY | 2023-02-21 17:48 | External Medical Summary ---
Author Name Unknown Address Unknown Organization K01:LAB[place]ATORY [facility] [place] [address] [place] [address] Laboratory Report Ordering Provider Test Date Status JIMY TORRES 09/30/2021 07:06:00 Final Observation Date Value Abnormality Reference (Units ) Status BUN 09/30/2021 07:06:00 5 Below low normal 6-20 (mg/dL) Final Creatinine 09/30/2021 07:06:00 0.8 0.6-1.2 (mg/dL) Final Glomerular filtration rate/1.73 sq M.predicted [Volume Rate/Area] in Serum, Plasma or Blood by Creatinine-based formula (CKD-EPI) 09/30/2021 07:06:00 >90 >=60 (mL/min) Final Performing Location LAB[facility]ATORY [facility] [place] [address] [place] [address]
--- OUTSIDE RECORDS SUMMARY | 2023-02-21 17:48 | External Medical Summary ---
Author Name Unknown Address Unknown Organization K01:LABORATORY [facility] [place] - [address] [place] [address] Laboratory Report Ordering Provider Test Date Status BIRDIE,ANTWAN 09/30/2021 17:06:00 Final Observation Date Value Abnormality Reference (Units ) Status PT 09/30/2021 17:06:00 14.8 Above high normal 11 .5-14.6 (seconds) Final INR 09/30/2021 17:06:00 1.14 0.84-1.14 Final Performing Location LABORATORY [facility] - [address] [place] [address]
--- OUTSIDE RECORDS SUMMARY | 2023-02-21 17:48 | External Medical Summary ---
Author Name Unknown Address Unknown Organization K01:[place] [facility] [place] [address] [facility] [address] [facility] [place] [address] Laboratory Report Ordering Provider Test Date Status BIRDIE,ANTWAN 10/03/2021 00:39:00 Final Observation Date Value Abnormality Reference (Units ) Status Heparin, unfractionated level 10/03/2021 00:39:00 0.20 Above high normal <0.10 (IU/mL) Final Performing Location [place] [facility] [place] [address] [facility] [place] [address]
--- OUTSIDE RECORDS SUMMARY | 2023-02-21 17:48 | External Medical Summary ---
Author Name Unknown Address Unknown Organization K01:LABORATORY [facility] [place] - [facility] [place] [address] Laboratory Report Ordering Provider Test Date Status BIRDIE,ANTWAN 10/04/2021 03:21:00 Final Observation Date Value Abnormality Reference (Units ) Status WBC, Total 10/04/2021 03:21:00 7.14 4.00-10.80 (K/uL) Final RBC 10/04/2021 03:21:00 4.99 4.50-5.25 (M/uL) Final Hemoglobin 10/04/2021 03:21:00 14.4 14.0-16.8 (g/dL) Final HCT 10/04/2021 03:21:00 41.7 40.0-48.4 (%) Final MCV 10/04/2021 03:21:00 83.6 82.0-99.5 (fL) Final MCH 10/04/2021 03:21:00 28.9 27.0-34.0 (pg) Final MCHC 10/04/2021 03:21:00 34.5 32.0-36.0 (g/dL) Final RDW 10/04/2021 03:21:00 13.6 11.5-15.5 (%) Final MPV 10/04/2021 03:21:00 8.1 6.6-11.1 (fL) Final Nucleated erythrocytes/100 leukocytes [Ratio] in Blood by Automated count 10/04/2021 03:21:00 0 <=0 (/100 WBCs) Final Platelets 10/04/2021 03:21:00 300 140-400 (K/uL) Final Performing Location LABORATORY [facility] [place] - [address] [place] [address]
--- OUTSIDE RECORDS SUMMARY | 2023-02-21 17:48 | External Medical Summary ---
Author Name Unknown Address Unknown Organization K01:LABORATORY [facility] [place] - [address] [place] [address] Laboratory Report Ordering Provider Test Date Status ANTWAN PACKER 10/02/2021 17:15:00 Final Observation Date Value Abnormality Reference (Units ) Status aPTT panel - Platelet poor plasma 10/02/2021 17:15:00 39 Above high normal 21-38 (seconds) Final Performing Location LABORATORY [facility] - [address] [place] [address]
--- OUTSIDE RECORDS SUMMARY | 2023-02-21 17:48 | External Medical Summary ---
Author Name Unknown Address Unknown Organization K01:[place]ORY [facility] [place] [facility] [place] [address] Laboratory Report Ordering Provider Test Date Status JIMY TORRES 09/30/2021 00:57:00 Final Observation Date Value Abnormality Reference (Units ) Status WBC, Total 09/30/2021 00:57:00 8.24 4.00-10.80 (K/uL) Final RBC 09/30/2021 00:57:00 4.77 4.50-5.25 (M/uL) Final Hemoglobin 09/30/2021 00:57:00 14.4 14.0-16.8 (g/dL) Final HCT 09/30/2021 00:57:00 42.5 40.0-48.4 (%) Final MCV 09/30/2021 00:57:00 89.1 82.0-99.5 (fL) Final MCH 09/30/2021 00:57:00 30.2 27.0-34.0 (pg) Final MCHC 09/30/2021 00:57:00 33.9 32.0-36.0 (g/dL) Final RDW 09/30/2021 00:57:00 13.8 11.5-15.5 (%) Final MPV 09/30/2021 00:57:00 8.3 6.6-11.1 (fL) Final Nucleated erythrocytes/100 leukocytes [Ratio] in Blood by Automated count 09/30/2021 00:57:00 0 <=0 (/100 WBCs) Final Platelets 09/30/2021 00:57:00 272 140-400 (K/uL) Final Performing Location [facility]ATORY [facility] [place] [address] [place] [address]
--- OUTSIDE RECORDS SUMMARY | 2023-02-21 17:48 | External Medical Summary ---
Author Name Unknown Address Unknown Organization K01:LABORATORY [facility] [place] - [address] [facility] [address] Laboratory Report Ordering Provider Test Date Status BIRDIE,ANTWAN 10/01/2021 21:59:00 Final Observation Date Value Abnormality Reference (Units ) Status Heparin, unfractionated level 10/01/2021 21:59:00 0.26 Above high normal <0.10 (IU/mL) Final Performing Location LABORATORY [facility] [place] - [address] [facility] [address]
--- OUTSIDE RECORDS SUMMARY | 2023-02-21 17:48 | External Medical Summary ---
Author Name Unknown Address Unknown Organization K01:LABORATORY [facility] [place] - [facility] [address] [facility] [address] Laboratory Report Ordering Provider Test Date Status BIRDIE,ANTWAN 10/03/2021 07:59:00 Final Observation Date Value Abnormality Reference (Units ) Status WBC, Total 10/03/2021 07:59:00 6.69 4.00-10.80 (K/uL) Final RBC 10/03/2021 07:59:00 4.76 4.50-5.25 (M/uL) Final Hemoglobin 10/03/2021 07:59:00 14.2 14.0-16.8 (g/dL) Final HCT 10/03/2021 07:59:00 41.3 40.0-48.4 (%) Final MCV 10/03/2021 07:59:00 86.8 82.0-99.5 (fL) Final MCH 10/03/2021 07:59:00 29.8 27.0-34.0 (pg) Final MCHC 10/03/2021 07:59:00 34.4 32.0-36.0 (g/dL) Final RDW 10/03/2021 07:59:00 13.6 11.5-15.5 (%) Final MPV 10/03/2021 07:59:00 8.0 6.6-11.1 (fL) Final Nucleated erythrocytes/100 leukocytes [Ratio] in Blood by Automated count 10/03/2021 07:59:00 0 <=0 (/100 WBCs) Final Platelets 10/03/2021 07:59:00 284 140-400 (K/uL) Final Performing Location LABORATORY [facility] [place] - [address] [place] [address]
--- OUTSIDE RECORDS SUMMARY | 2023-02-21 17:48 | External Medical Summary ---
Author Name Unknown Address Unknown Organization K01:[place] [facility] [place] [facility] [address] [facility] [address] Laboratory Report Ordering Provider Test Date Status BIRDIE,ANTWAN 10/02/2021 17:14:00 Final Observation Date Value Abnormality Reference (Units ) Status WBC, Total 10/02/2021 17:14:00 8.85 4.00-10.80 (K/uL) Final RBC 10/02/2021 17:14:00 4.86 4.50-5.25 (M/uL) Final Hemoglobin 10/02/2021 17:14:00 14.2 14.0-16.8 (g/dL) Final HCT 10/02/2021 17:14:00 41.9 40.0-48.4 (%) Final MCV 10/02/2021 17:14:00 86.2 82.0-99.5 (fL) Final MCH 10/02/2021 17:14:00 29.2 27.0-34.0 (pg) Final MCHC 10/02/2021 17:14:00 33.9 32.0-36.0 (g/dL) Final RDW 10/02/2021 17:14:00 13.5 11.5-15.5 (%) Final MPV 10/02/2021 17:14:00 7.8 6.6-11.1 (fL) Final Nucleated erythrocytes/100 leukocytes [Ratio] in Blood by Automated count 10/02/2021 17:14:00 0 <=0 (/100 WBCs) Final Platelets 10/02/2021 17:14:00 321 140-400 (K/uL) Final Performing Location [place] [facility] [place] [address] [facility] [address]
--- OUTSIDE RECORDS SUMMARY | 2023-02-21 17:48 | External Medical Summary ---
Author Name Unknown Address Unknown Organization K01:LABORATORY [facility] [place] [address] [place] [address] Laboratory Report Ordering Provider Test Date Status JIMY TORRES 10/01/2021 07:51:00 Final Observation Date Value Abnormality Reference (Units ) Status BUN 10/01/2021 07:51:00 5 Below low normal 6-20 (mg/dL) Final Creatinine 10/01/2021 07:51:00 0.7 0.6-1.2 (mg/dL) Final Glomerular filtration rate/1.73 sq M.predicted [Volume Rate/Area] in Serum, Plasma or Blood by Creatinine-based formula (CKD-EPI) 10/01/2021 07:51:00 >90 >=60 (mL/min) Final Performing Location LABORATORY [facility] [place] - [address] [place] [address]
--- OUTSIDE RECORDS SUMMARY | 2023-02-21 17:48 | External Medical Summary ---
Author Name Unknown Address Unknown Organization K01:LABORATORY [facility] - [address] [facility] [place] [address] Laboratory Report Ordering Provider Test Date Status BIRDIE,ANTWAN 10/01/2021 15:46:00 Final Observation Date Value Abnormality Reference (Units ) Status aPTT panel - Platelet poor plasma 10/01/2021 15:46:00 37 21-38 (seconds) Final Performing Location LABORATORY [facility] - [address] [place] [address]
--- OUTSIDE RECORDS SUMMARY | 2023-02-21 17:48 | External Medical Summary ---
Author Name Unknown Address Unknown Organization K01:LABORATORY [place] [address] [place] [place] [address] Laboratory Report Ordering Provider Test Date Status BIRDIE,ANTWAN 10/01/2021 07:51:00 Final Observation Date Value Abnormality Reference (Units ) Status WBC, Total 10/01/2021 07:51:00 8.33 4.00-10.80 (K/uL) Final RBC 10/01/2021 07:51:00 4.63 4.50-5.25 (M/uL) Final Hemoglobin 10/01/2021 07:51:00 13.7 Below low normal 14.0-16.8 (g/dL) Final HCT 10/01/2021 07:51:00 40.4 40.0-48.4 (%) Final MCV 10/01/2021 07:51:00 87.3 82.0-99.5 (fL) Final MCH 10/01/2021 07:51:00 29.6 27.0-34.0 (pg) Final MCHC 10/01/2021 07:51:00 33.9 32.0-36.0 (g/dL) Final RDW 10/01/2021 07:51:00 13.5 11.5-15.5 (%) Final MPV 10/01/2021 07:51:00 8.1 6.6-11.1 (fL) Final Nucleated erythrocytes/100 leukocytes [Ratio] in Blood by Automated count 10/01/2021 07:51:00 0 <=0 (/100 WBCs) Final Platelets 10/01/2021 07:51:00 288 140-400 (K/uL) Final Performing Location LAB[facility]ORY [facility] [place] [address] [place] [address]
--- OUTSIDE RECORDS SUMMARY | 2023-02-21 17:48 | External Medical Summary ---
Author Name Unknown Address Unknown Organization K01:[place] [facility] [place] [facility] [address] [facility] [address] Laboratory Report Ordering Provider Test Date Status BIRDIE,ANTWAN 10/03/2021 19:00:00 Final Observation Date Value Abnormality Reference (Units ) Status WBC, Total 10/03/2021 19:00:00 7.10 4.00-10.80 (K/uL) Final RBC 10/03/2021 19:00:00 4.78 4.50-5.25 (M/uL) Final Hemoglobin 10/03/2021 19:00:00 14.4 14.0-16.8 (g/dL) Final HCT 10/03/2021 19:00:00 41.0 40.0-48.4 (%) Final MCV 10/03/2021 19:00:00 85.8 82.0-99.5 (fL) Final MCH 10/03/2021 19:00:00 30.1 27.0-34.0 (pg) Final MCHC 10/03/2021 19:00:00 35.1 32.0-36.0 (g/dL) Final RDW 10/03/2021 19:00:00 13.5 11.5-15.5 (%) Final MPV 10/03/2021 19:00:00 8.1 6.6-11.1 (fL) Final Nucleated erythrocytes/100 leukocytes [Ratio] in Blood by Automated count 10/03/2021 19:00:00 0 <=0 (/100 WBCs) Final Platelets 10/03/2021 19:00:00 278 140-400 (K/uL) Final Performing Location [place]ORY [facility] [place] [address] [facility] [address]
--- OUTSIDE RECORDS SUMMARY | 2023-02-21 17:48 | External Medical Summary ---
Author Name Unknown Address Unknown Organization K01:[place] [facility] [place] [address] [facility] [address] Laboratory Report Ordering Provider Test Date Status BIRDIE,ANTWAN 10/04/2021 03:21:00 Final Observation Date Value Abnormality Reference (Units ) Status Heparin, unfractionated level 10/04/2021 03:21:00 0.29 Above high normal <0.10 (IU/mL) Final Performing Location [place] [facility] [place] [address] [facility] [address]
--- OUTSIDE RECORDS SUMMARY | 2023-02-21 17:48 | External Medical Summary ---
Author Name Unknown Address Unknown Organization K01:[place] [facility] [place] [address] [place] [address] Laboratory Report Ordering Provider Test Date Status JIMY TORRES 09/30/2021 00:57:00 Final Observation Date Value Abnormality Reference (Units ) Status CRP, low-sensitivity 09/30/2021 00:57:00 104 Above high normal <=5 (mg/L) Final Performing Location [facility] [address] [facility] [address]
--- OUTSIDE RECORDS SUMMARY | 2023-02-21 17:48 | External Medical Summary ---
Author Name Unknown Address Unknown Organization K01:LABORATORY [facility] [place] - [facility] [place] [address] Laboratory Report Ordering Provider Test Date Status JIMY TORRES 09/30/2021 07:06:00 Final Observation Date Value Abnormality Reference (Units ) Status WBC, Total 09/30/2021 07:06:00 7.42 4.00-10.80 (K/uL) Final RBC 09/30/2021 07:06:00 4.66 4.50-5.25 (M/uL) Final Hemoglobin 09/30/2021 07:06:00 13.8 Below low normal 14.0-16.8 (g/dL) Final HCT 09/30/2021 07:06:00 40.8 40.0-48.4 (%) Final MCV 09/30/2021 07:06:00 87.6 82.0-99.5 (fL) Final MCH 09/30/2021 07:06:00 29.6 27.0-34.0 (pg) Final MCHC 09/30/2021 07:06:00 33.8 32.0-36.0 (g/dL) Final RDW 09/30/2021 07:06:00 13.8 11.5-15.5 (%) Final MPV 09/30/2021 07:06:00 8.2 6.6-11.1 (fL) Final Nucleated erythrocytes/100 leukocytes [Ratio] in Blood by Automated count 09/30/2021 07:06:00 0 <=0 (/100 WBCs) Final Platelets 09/30/2021 07:06:00 277 140-400 (K/uL) Final Performing Location LABORATORY [facility] [place] - [address] [place] [address]
--- OUTSIDE RECORDS SUMMARY | 2023-02-21 17:48 | External Medical Summary ---
Author Name Unknown Address Unknown Organization [id number]:LAB[place]ORY [facility] [place] [address] [place] [address] Laboratory Report Ordering Provider Test Date Status JIMY TORRES 09/30/2021 07:06:00 Final Observation Date Value Abnormality Reference (Units ) Status PT 09/30/2021 07:06:00 14.8 Above high normal 11 .5-14.6 (seconds) Final INR 09/30/2021 07:06:00 1.14 0.84-1.14 Final Performing Location [facility] [place] [address] [place] [address]
--- OUTSIDE RECORDS SUMMARY | 2023-02-21 17:48 | External Medical Summary ---
Author Name Unknown Address Unknown Organization [id number]:LABORATORY [facility] [place] - [address] [place] [address] Laboratory Report Ordering Provider Test Date Status BIRDIE,ANTWAN 10/03/2021 07:59:00 Final Observation Date Value Abnormality Reference (Units ) Status PT 10/03/2021 07:59:00 14.8 Above high normal 11 .5-14.6 (seconds) Final INR 10/03/2021 07:59:00 1.14 0.84-1.14 Final Performing Location LABORATORY [facility] [place] - [address] [place] [address]
--- OUTSIDE RECORDS SUMMARY | 2023-02-21 17:48 | External Medical Summary ---
Author Name Unknown Address Unknown Organization [id number]:[facility] [place] [address] [facility] [address] Laboratory Report Ordering Provider Test Date Status BIRDIE,ANTWAN 10/01/2021 15:46:00 Final Observation Date Value Abnormality Reference (Units ) Status Heparin, unfractionated level 10/01/2021 15:46:00 <0.10 <0.10 (IU/mL) Final Performing Location LABORATORY C - [address] [facility] [address]
--- OUTSIDE RECORDS SUMMARY | 2023-02-21 17:48 | External Medical Summary ---
Author Name Unknown Address Unknown Organization [id number]:LABORATORY [facility] [place] - [address] [facility] [address] Laboratory Report Ordering Provider Test Date Status BIRDIE,ANTWAN 10/03/2021 19:00:00 Final Observation Date Value Abnormality Reference (Units ) Status Heparin, unfractionated level 10/03/2021 19:00:00 <0.10 <0.10 (IU/mL) Final Performing Location LABORATORY C - [address] [facility] [address]
--- OUTSIDE RECORDS SUMMARY | 2023-02-21 17:48 | External Medical Summary ---
Author Name Unknown Address Unknown Organization [id number]:LAB[facility]ATORY [facility] [place] - [facility] [address] [facility] [address] Laboratory Report Ordering Provider Test Date Status BIRDIE,ANTWAN 10/05/2021 05:17:00 Final Observation Date Value Abnormality Reference (Units ) Status WBC, Total 10/05/2021 05:17:00 8.09 4.00-10.80 (K/uL) Final RBC 10/05/2021 05:17:00 5.23 4.50-5.25 (M/uL) Final Hemoglobin 10/05/2021 05:17:00 15.3 14.0-16.8 (g/dL) Final HCT 10/05/2021 05:17:00 44.5 40.0-48.4 (%) Final MCV 10/05/2021 05:17:00 85.1 82.0-99.5 (fL) Final MCH 10/05/2021 05:17:00 29.3 27.0-34.0 (pg) Final MCHC 10/05/2021 05:17:00 34.4 32.0-36.0 (g/dL) Final RDW 10/05/2021 05:17:00 13.4 11.5-15.5 (%) Final MPV 10/05/2021 05:17:00 8.2 6.6-11.1 (fL) Final Nucleated erythrocytes/100 leukocytes [Ratio] in Blood by Automated count 10/05/2021 05:17:00 0 <=0 (/100 WBCs) Final Platelets 10/05/2021 05:17:00 262 140-400 (K/uL) Final Performing Location LAB[facility]ATORY [facility] [place] - [address] [place] [facility] [address]
--- OUTSIDE RECORDS SUMMARY | 2023-02-21 17:48 | External Medical Summary ---
Author Name Unknown Address Unknown Organization [id number]:LABORATORY [facility] [place] - [address] [place] [address] Laboratory Report Ordering Provider Test Date Status JIMY TORRES 09/30/2021 00:57:00 Final Observation Date Value Abnormality Reference (Units ) Status PT 09/30/2021 00:57:00 15.4 Above high normal 11 .5-14.6 (seconds) Final INR 09/30/2021 00:57:00 1.20 Above high normal 0. 84-1.14 Final Performing Location LABORATORY [facility] [place] - [address] [place] [address]
--- OUTSIDE RECORDS SUMMARY | 2023-02-21 17:48 | External Medical Summary ---
Author Name Unknown Address Unknown Organization [id number]:LABORATORY [facility] [place] - [address] [place] [address] Laboratory Report Ordering Provider Test Date Status BIRDEI,ANTWAN 10/02/2021 17:15:00 Final Observation Date Value Abnormality Reference (Units ) Status Heparin, unfractionated level 10/02/2021 17:15:00 <0.10 <0.10 (IU/mL) Final Performing Location LABORATORY C - [address] [facility] [address]
--- OUTSIDE RECORDS SUMMARY | 2023-02-21 17:48 | External Medical Summary ---
Author Name Unknown Address Unknown Organization [id number]:LABORATORY [facility] – [place] - [address] [place] [address] Laboratory Report Ordering Provider Test Date Status BIRDIE,ANTWAN 10/03/2021 19:00:00 Final Observation Date Value Abnormality Reference (Units ) Status PT 10/03/2021 19:00:00 14.3 11.5-14.6 (seconds) Final INR 10/03/2021 19:00:00 1.09 0.84-1.14 Final Performing Location LABORATORY [facility] - [address] [place] [address]
--- OUTSIDE RECORDS SUMMARY | 2023-02-21 17:48 | External Medical Summary | Summary of Care ---
Author Name Unknown Organization [place] [address] Care Team Providers Care Assembly Instructions Writer Name Role Phone Lanette Roman MD Primary Care Provider [phone] Encounter Details Date Type Department Care Team Description 09/28/2021 Orders Only [address] [address] Demetri Alan MD [address] [facility] [place] [address] Allergies No known active allergiesdocumented as of this encounter (statuses as of 09/30/2021) Medications Medication Sig Dispensed Refills Start Date End Date Status escitalopram (LEXAPRO) 10 MG Tablet Take 10 mg by mouth daily. 0 Suspended levothyroxine (SYNTHROID) 50 MCG Tablet Take 50 mcg by mouth daily first thing in the morning. (at least 30 min prior to breakfast or other meds) 0 Suspended pantoprazole (PROTONIX) 40 MG Pack Take 40 mg by mouth daily. 0 Suspended TraMADol HCl ER 100 MG TB24 Take 100 mg by mouth daily. 0 Suspended traZODone (DESYREL) 50 MG Tablet Take 50 mg by mouth at bedtime. 0 Suspended metoprolol succinate XL (TOPROL XL) 100 MG TB24 Take 1 Tab by mouth 2 times a day. 64 Tab 11 05/05/2017 Suspended Additional Information furosemide (LASIX) 40 MG Tablet Take 1 Tab by mouth daily. 90 Tab 3 08/03/2017 Suspended Additional Information Magnesium Oxide 400 (240 Mg) MG TabletIndications:A trial fibrillation (HCC) Take 1 Tab by mouth 2 times a day. 60 Tab 5 10/14/2017 Suspended Additional Information rivaroxaban (XARELTO) 20 MG Tablet Take 1 Tab by mouth daily with dinner. 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 HTN, goal below 140/90 04/13/2017 Obesity, morbid (more than 100 lbs over ideal weight or BMI > 40) 04/13/2017 Hypothyroidism 04/13/2017 Atrial fibrillation 04/05/2017 documented as of this encounter (statuses as of 09/30/2021) Social History Tobacco Use Types Packs/Day Years [...] Assigned at Date Recorded Not on file documented as of this encounter Plan of [...] BASIC METABOLIC PANEL (BMP) FOR HTN YEARLY 09/30/2022 09/30/2021, 05/13/2010, 01/17/2009, Additional history exists DIABETES SCREEN EVERY 3 YRS-AGE 45 AND ABOVE 09/30/2024 09/30/2021, 05/13/2010, 05/13/2010, Additional history exists GARDASIL-HPV IMMUNIZATION SERIES Aged [...] Procedure Name Priority Date/Time Associated Diagnosis Comments RADIOLOGY EXAM - MRI (IMAGES ONLY, NO REPORT) Routine 09/28/2021 2:55 PM EDT documented in this encounter Results * RADIOLOGY EXAM - MRI (IMAGES ONLY, NO REPORT) (09/28/2021 2:55 PM EDT) Specimen Narrative Scheduling, Silent - 09/30/2021 3:54 AM EDT This is an imaging study not interpreted or resulted by a [facility] or [facility] contracted radiologist. documented in this encounter Advance Directives Documents on File Type Date Recorded Patient Nuclear Physics Teacher Expl anation Advanced Directive Advanced Directive Advanced Directive Advanced Directive Advanced Directive Latest Code Status on File Code Status Date Activated Date Inactivated Comments Full Code 09/29/2021 11:36 PM This orde r reflects the patients wishes and were consensually agreed upon. Discussion of Advance Directives occurred with: Patient Full Code 09/29/2021 11:12 PM 09/29/2021 11:12 PM Thi s order reflects the patients wishes and were consensually agreed upon. Care Teams Assembly Instructions Writer Relationship Specialty Start Date End Date Lanette Roman MD [address] [place] [address] [place] [address] PCP - General 12/26/05 documented as of this encounter
--- OUTSIDE RECORDS SUMMARY | 2023-02-21 17:49 | External Medical Summary | Summary of Care ---
Author Name Unknown Organization [place] [address] Phone Care Team Providers Care Business Objects Developer Name Role Phone Lanette Roman MD Primary Care Provider [phone] [phone] Encounter Details Date Type Department Care Team Description 10/03/2017 Scan Encounter Sleep Disorders, [facility] [address] [facility] [place] [address] Gypsy Wild CRNP [address] [facility] [address] <No scans attached> Allergies No Known Allergiesas of this encounter Medications Prescription Sig. Disp. Refills Start Date End Date Status escitalopram (LEXAPRO) 10 MG Tablet Take 10 mg by mouth daily. Active levothyroxine (SYNTHROID) 50 MCG Tablet Take 50 mcg by mouth daily first thing in the morning. (at least 30 min prior to breakfast or other meds) Active pantoprazole (PROTONIX) 40 MG Pack Take 40 mg by mouth daily. Active TraMADol HCl ER 100 MG TB24 Take 100 mg by mouth daily. Active traZODone (DESYREL) 50 MG Tablet Take 50 mg by mouth at bedtime. Active metoprolol succinate XL (TOPROL XL) 100 MG TB24 Take 1 Tab by mouth 2 times a day. 64 Tab 11 05/05/2017 Active DilTIAZem HCl ER Beads 240 MG [id number]:Chr onic atrial fibrillation (HCC) Take 1 Cap by mouth daily. 90 Cap 3 05/12/2017 Active warfarin sodium (COUMADIN) 5 MG Tablet Take one tablet daily or as directed by anticoagulation pharmacist. 30 Tab 5 05/13/2017 Active furosemide (LASIX) 40 MG Tablet Take 1 Tab by mouth daily. 90 Tab 3 08/03/2017 Active Potassium Chloride ER 20 MEQ TBCR Take 1 Tab by mouth daily. 90 Tab 3 08/03/2017 Active as of this encounter Active Problems Problem Noted Date HTN, goal below 140/90 04/13/2017 Obesity, morbid (more than 100 lbs over ideal weight or BMI > 40) (HCC) 04/13/2017 Hypothyroidism 04/13/2017 Atrial fibrillation (HCC) 04/05/2017 as of this encounter Social History Tobacco Use Types Packs/Day Years Used Date Former Smoker Smokeless Tobacco: Never Used Alcohol Use Drinks/Week oz/Week Comments Yes rarely Sex Assigned at Date Recorded Not on file as of this encounter Plan of Treatment Upcoming Encounters Date Type Specialty Care Team Description 11/16/2017 Pharmacy Pharmacy [address] [place] [address] [phone] 02/17/2018 Office Visit Cardiology Kadeem Frey, DO [address] [facility] [place] [address] [phone] Health Maintenance Due Date Last Done Comments DTaP,Tdap,and Td Vaccines (1 - Tdap) 1979 DIABETES SCREEN EVERY 3 YRS- AGE 45 AND ABOVE 05/13/2013 05/13/2010, 05/13/2010, 01/17/2009, Additional history exists LIPID SCREEN EVERY 5 YRS-MEN AGE 35-75 05/13/2015 05/13/2010, 01/17/2009, 10/26/2007 *BASIC METABOLIC PANEL (BMP) FOR HTN YEARLY 04/11/2017 *DEPRESSION SCREENING, ANNUA L FOR PTS 18 AND OVER 04/11/2017 *TSH FOR THYROID MEDICATION MONITORING YEARLY 04/11/2017 *URINE PROTEIN ONCE FOR HTN-DIPSTICK ACCEPTABLE 04/17/2017 *COLORECTAL CANCER SCREENING (COLONOSCOPY 10 YEARS; SIGMOIDOSCOPY 5 YEARS; COLOGUARD 3 YEARS; FOBT 1 YEAR),AGES 50-75 07/18/2017 10/27/2007 Influenza Vaccine (FLU shot) (Season Ended) 2018 as of this encounter Implants Not on fileas of this encounter
--- OUTSIDE RECORDS SUMMARY | 2023-02-21 17:49 | External Medical Summary | Summary of Care ---
Author Name Unknown Organization [facility] [place] [address] Care Team Providers Care Risk Developer Name Role Phone Lanette Roman MD Primary Care Provider [phone] [phone] Encounter Details Date Type Department Care Team Description 09/12/2021 Orders Only Orthopaedics, [address] [address] Sushila Powers MD [address] [place] [id number] Allergies No known active allergiesdocumented as of this encounter (statuses as of 09/15/2021) Medications Medication Sig Dispensed Refills Start Date [...] 40 mg by mouth daily. 0 Active TraMADol HCl ER 100 MG TB24 Take 100 mg by mouth daily. 0 Active traZODone (DESYREL) 50 MG Tablet Take 50 mg by mouth at bedtime. 0 Active metoprolol succinate XL (TOPROL XL) 100 MG TB24 Take 1 Tab by mouth 2 times a day. 64 Tab 11 05/05/2017 Active furosemide (LASIX) 40 MG Tablet Take 1 Tab by mouth daily. 90 Tab 3 08/03/2017 Active Magnesium Oxide 400 (240 Mg) MG TabletIndications:Atri al fibrillation (HCC) Take 1 Tab by mouth 2 times a day. 60 Tab 5 10/14/2017 Active rivaroxaban (XARELTO) 20 MG Tablet Take 1 Tab by mouth daily with dinner. 0 11/16/2017 Active DilTIAZem HCl ER Beads 240 MG [id number]:Chroni c atrial fibrillation (HCC) TAKE ONE CAPSULE BY MOUTH DAILY 90 Cap 3 06/08/2018 Active Klor-Con M20 20 MEQ Oral Tablet Extended Release (Potassium Chloride Radha ER)Indications:Atrial fibrillation (HCC) TAKE 1 TABLET BY MOUTH EVERY DAY 90 Tab 3 03/25/2021 Active documented as of this encounter (statuses as of 09/15/2021) Active Problems Problem Noted Date HTN, goal below 140/90 04/13/2017 Obesity, morbid (more than 100 lbs over ideal weight or BMI > 40) 04/13/2017 Hypothyroidism 04/13/2017 Atrial fibrillation 04/05/2017 documented as of this encounter (statuses as of 09/15/2021) Social History Tobacco Use Types Packs/Day Years [...] 10/27/2007 Zoster Vaccines (1 of 2) 2010 BASIC METABOLIC PANEL (BMP) FOR HTN YEARLY 05/13/2011 05/13/2010, 01/17/2009, 09/24/2008, Additional history exists DIABETES SCREEN EVERY 3 YRS-AGE 45 AND ABOVE 05/13/2013 05/13/2010, 05/13/2010, 01/17/2009, Additional history exists LIPID SCREEN EVERY 5 YRS-MEN AGE 35-75 05/13/2015 05/13/2010, 01/17/2009, 10/26/2007 *URINE ALBUMIN/CREATININE RATIO ONCE FOR HTN 04/17/2017 Influenza Vaccine (FLU shot) (Season Ended) 2022 03/29/2017 GARDASIL-HPV IMMUNIZATION SERIES Aged Out No [...] Date/Time Associated Diagnosis Comments RADIOLOGY EXAM - GENERAL RAD (IMAGES ONLY,NO REPORT) Routine 09/12/2021 2:10 PM EDT documented in this encounter Results * RADIOLOGY EXAM - GENERAL RAD (IMAGES ONLY,NO REPORT) (09/12/2021 2:10 PM EDT) Specimen Narrative Scheduling, Silent - 09/15/2021 6:43 PM EDT This is an imaging study not interpreted or resulted by a [facility] or [facility] contracted radiologist. documented in this encounter Advance Directives Documents on File Type Date Recorded Patient Electrician Chief Expl anation Advanced Directive Advanced Directive Advanced Directive Advanced Directive Care Teams Risk Developer Relationship Specialty Start Date End Date Lanette Roman MD [address] [place] [address] [place] [address] PCP - General 12/26/05 documented as of this encounter
--- OUTSIDE RECORDS SUMMARY | 2023-02-21 17:49 | External Medical Summary | Summary of Care ---
Author Name Unknown Organization [place] [address] Care Team Providers Care Respiratory Medicine Physician Name Role Phone Lanette Roman MD Primary Care Provider [phone] [phone] Reason for Referral * Evaluate & Treat - Unlimited Visits (Within 10 days (routine)) Status Reason Specialty Diagnoses / Procedures Referred By Contact Referred To Contact Pending Review Specialty Services Required Physical Therapy Diagnoses Acute left-sided low back pain with left-sided sciatica Perez Newton MD [address] [place] [address] Reason for Visit * Reason Comments NEW PATIENT Low back and left le g pain * Evaluate & Treat - Unlimited Visits (Within 10 days (routine)) Status Reason Specialty Diagnoses / Procedures Referred By Contact Referred To Contact Pending Review Specialty Services Required Orthopaedic Surgery Diagnoses Lumbar herniated disc Acute left-sided low back pain with left-sided sciatica Jori Dong, DO [address] [place] [address] Encounter Details Date Type Department Care Team Description 08/25/2019 Office Visit Orthopaedics Spine Surgery, [place] [address] [place] [address] Scott Correa MD [address] [place] [address] Acute left-sided low back pain with left-sided sciatica* Allergies No Known Allergiesdocumented as of this encounter (statuses as of 08/25/2019) Medications Medication Sig Dispensed Refills Start Date [...] Active DilTIAZem HCl ER Beads 240 MG [id number]:Chroni c atrial fibrillation TAKE ONE CAPSULE BY MOUTH DAILY 90 Cap 3 06/08/2018 Active KLOR-CON M20 20 MEQ TBCRIndications:Atrial fibrillation (HCC) TAKE 1 TABLET BY MOUTH EVERY DAY 90 Tab 3 04/19/2019 Active documented as of this encounter (statuses as of 08/25/2019) Active Problems Problem Noted Date HTN, goal below 140/90 04/13/2017 Obesity, morbid (more than 100 lbs over ideal weight or BMI > 40) 04/13/2017 Hypothyroidism 04/13/2017 Atrial fibrillation 04/05/2017 documented as of this encounter (statuses as of 08/25/2019) Social History Tobacco Use Types Packs/Day Years Used Date Former Smoker Smokeless Tobacco: Never Used Alcohol Use Drinks/Week oz/Week Comments Yes rarely Sex Assigned at Date Recorded Not on file Job Start Date Occupation Industry Not on file Not on file Not on file Travel History Travel Start Travel End documented as of this encounter Last Filed Vital Signs Vital Sign Reading Time Taken Comments Blood Pressure - - Pulse - - Temperature - - Respiratory Rate - - Oxygen Saturation - - Inhaled Oxygen Concentration - - Weight 210 kg (462 lb 14.4 oz) 08/25/2019 11:54 AM EDT Height 170.2 cm (5' 7") 08/25/2019 11:54 AM EDT Body Mass Index 72.5 08/25/2019 11:54 AM EDT documented in this encounter Progress Notes * Perez Newton MD - 08/25/2019 12:42 PM EDT Please see dictation for documentation on this encounter. Perez Newton MD 08/25/2019 12:42 PM documented in this encounter Plan of Treatment Scheduled Referrals Name Type Priority Associated Diagnoses Orde r Schedule PHYSICAL THERAPY REFERRAL OP Referral Within 10 days (routine) Acute left-sided low back pain with left-sided sciatica Ordered: 08/25/2019 Health Maintenance Due Date Last Done Comments DTaP,Tdap,and Td Vaccines (1 - Tdap) 1971 Zoster Vaccines (1 of 2) 2010 DIABETES SCREEN EVERY 3 YRS-AGE 45 AND ABOVE 05/13/2013 05/13/2010, 05/13/2010, 01/17/2009, Additional history exists LIPID SCREEN EVERY 5 YRS-MEN AGE 35-75 05/13/2015 05/13/2010, 01/17/2009, 10/26/2007 *BASIC METABOLIC PANEL (BMP) FOR HTN YEARLY 04/11/2017 *DEPRESSION SCREENING,ANNUAL FOR PTS 12 AND OVER 04/11/2017 *TSH FOR THYROID MEDICATION MONITORING YEARLY 04/11/2017 *URINE PROTEIN ONCE FOR HTN-DIPSTICK ACCEPTABLE 04/17/2017 *COLORECTAL CANCER SCREENING (COLONOSCOPY 10 YEARS; SIGMOIDOSCOPY 5 YEARS; COLOGUARD 3 YEARS; FOBT 1 YEAR),AGES 50-75 07/18/2017 10/27/2007 Influenza Vaccine (FLU shot) (#1) 2019 03/29/2017 MENINGOCOCCAL (MENACTRA/MENVEO) Aged Out No longer eligible based on patient's age to complete this topic Pneumococcal Vaccine: Pediatrics (0 to 5 Years) and At-Risk Patients (6 to 64 Years) Aged Out No longer eligible based on patient's age to complete this topic documented as of this encounter Implants Not on filedocumented as of this encounter Visit Diagnoses Diagnosis Acute left-sided low back pain with left-sided sciatica- Primary documented in this encounter Advance Directives Documents on File Type Date Recorded Patient Cash Accounting Clerk Expl anation Advanced Directive Advanced Directive
--- OUTSIDE RECORDS SUMMARY | 2023-02-21 17:49 | External Medical Summary | Summary of Care ---
Author Name Unknown Organization [place] [address] Phone Care Team Providers Care Farmworker Poultry Name Role Phone Lanette Roman MD Primary Care Provider [phone] [phone] Reason for Visit * Reason Comments NO SHOW Encounter Details Date Type Department Care Team Description 11/16/2017 Pharmacy Pharmacy, [address] [place] [address] [place] [id number] Chronic atrial fibrillation (HCC)* Allergies No Known Allergiesas of this encounter [...] Active DilTIAZem HCl ER Beads 240 MG [id number]:C hronic atrial fibrillation (HCC) Take 1 Cap by mouth daily. 90 Cap 3 05/12/2017 Active furosemide (LASIX) 40 MG Tablet Take 1 Tab by mouth daily. 90 Tab 3 08/03/2017 Active Potassium Chloride ER 20 MEQ TBCR Take 1 Tab by mouth daily. 90 Tab 3 08/03/2017 Active Magnesium Oxide 400 (240 Mg) MG TabletIndications :Atrial fibrillation (HCC) Take 1 Tab by mouth 2 times a day. 60 Tab 5 10/14/2017 Active rivaroxaban (XARELTO) 20 MG Tablet Take 1 Tab by mouth daily with dinner. 11/16/2017 Active warfarin sodium (COUMADIN) 5 MG Tablet Take one tablet daily or as directed by anticoagulation pharmacist. 30 Tab 5 05/13/2017 11/17/19 18 Discontinued as of this encounter Active Problems Problem [...] Not on file as of this encounter Progress Notes * Aric Bowen RP - 11/16/2017 1:51 PM EDT Noted. D/c from [facility]. Changed from coumadin to xarelto by [facility] PCP. Aric Bowen [facility], Pharm D Clinicial Pharmacist 11/16/2017, 1:51 PM * Vesta Rojas OSA - 11/16/2017 1:47 PM EDT Called patient and he answered the phone today. He is now a pt of Dr. Sutton, and she has switchedhim to Xarelto. She is managing him. Discharging patient and making him inactive. in this encounter Plan of Treatment Upcoming Encounters Date Type Specialty Care Team Description 11/16/2017 Pharmacy Pharmacy [address] [place] [address] [phone] Chronic atrial fibrillation (HCC)* 02/17/2018 Office Visit Cardiology Kadeem Frey, DO [address] [place] [address] [phone] Health Maintenance Due Date Last Done Comments [...] Implants Not on fileas of this encounter Visit Diagnoses Diagnosis Chronic atrial fibrillation (HCC) - Primary Atrial fibrillation in this encounter
--- OUTSIDE RECORDS SUMMARY | 2023-02-21 17:49 | External Medical Summary | Summary of Care ---
Author Name Unknown Organization [place] [address] Phone Care Team Providers Care Perfume Compounder Name Role Phone Lanette Roman MD Primary Care Provider [phone] [phone] Reason for Visit * Reason Comments NO SHOW Encounter Details Date Type Department Care Team Description 10/19/2017 Pharmacy Pharmacy, [address] [place] [address] [place] [id number] Chronic atrial fibrillation (HCC)* Allergies No Known [...] Active DilTIAZem HCl ER Beads 240 MG [id number]:Chr onic atrial fibrillation (HCC) Take 1 Cap [...] Active Magnesium Oxide 400 (240 Mg) MG TabletIndications:A trial fibrillation (HCC) Take 1 Tab by mouth 2 times a day. 60 Tab 5 10/14/2017 Active as of this encounter Active Problems [...] Progress Notes * Aric Bowen RP - 10/19/2017 11:29 AM EDT Noted. Agree with plan as documented. [facility] Clinical Pharmacist 10/19/2017, 11:30 AM * Vesta Rojas OSA - 10/19/2017 11:26 AM EDT Called patient and left another message for him to call us to let us know if he is being monitored by another office. See TE about amiodorone. I left message that we need to know if he is or is not taking that med. Last INR in June. Will follow up in two weeks again. He was sent a letter in mid-August. in this encounter Plan of Treatment Upcoming Encounters Date Type Specialty Care Team Description 10/19/[address] [place] [address] [phone] Chronic atrial fibrillation (HCC)* 10/21/2017 Office Visit Sleep Disorders Mindi Gonzales MD [address] [place] [address] [place] [address] Donald, Nurse Sleep Disorders [facility] [place] [address] [phone] 11/02/2017 Pharmacy Pharmacy [address] [place] [address] [phone] 02/17/2018 Office Visit Cardiology Kadeem Frey, [address] [place] [address] [phone] Health Maintenance Due Date Last Done Comments [...]
--- OUTSIDE RECORDS SUMMARY | 2023-02-21 17:49 | External Medical Summary | Summary of Care ---
Author Name Unknown Organization [place] [address] Care Team Providers Care Rater Associate Name Role Phone Lanette Roman MD Primary Care Provider [phone] [phone] Encounter Details Date Type Department Care Team Description 09/15/2021 Scan Encounter Infectious Disease Luz MORAES [address] [facility] [place] [facility] [phone] Hilario Lozano, 1000 [facility] [place] [address] <No scans attached> Allergies No known active [...] Active DilTIAZem HCl ER Beads 240 MG [id number]:Chroni c atrial fibrillation (HCC) TAKE ONE CAPSULE [...] Documents on File Type Date Recorded Patient Executive Communications Manager Expl anation Advanced Directive Advanced Directive Care Teams Rater Associate Relationship Specialty Start Date End Date Lanette Roman MD [address] [place] [address] [place] [address] PCP - General 12/26/05 documented as of this encounter
--- OUTSIDE RECORDS SUMMARY | 2023-02-21 17:49 | External Medical Summary | Summary of Care ---
Author Name Unknown Organization [place] [address] Care Team Providers Care Maintenance Advisor Name Role Phone Lanette Roman MD Primary Care Provider [phone] [phone] Encounter Details Date Type Department Care Team Description 07/17/2019 Documentation Orthopaedics, [address] [place] [address] [facility] [address] [place] [address] [phone] Allergies No Known Allergiesdocumented as of this encounter (statuses as of 07/17/2019) Medications Medication Sig Dispensed Refills Start Date [...] Active DilTIAZem HCl ER Beads 240 MG [id number]:Chroni c atrial fibrillation TAKE ONE CAPSULE BY MOUTH DAILY 90 Cap 3 06/08/2018 Active KLOR-CON M20 20 MEQ TBCRIndications:Atrial fibrillation (HCC) TAKE 1 TABLET BY MOUTH EVERY DAY 90 Tab 3 04/19/2019 Active documented as of this encounter (statuses as of 07/17/2019) Active Problems Problem Noted Date HTN, goal below 140/90 04/13/2017 Obesity, morbid (more than 100 lbs over ideal weight or BMI > 40) 04/13/2017 Hypothyroidism 04/13/2017 Atrial fibrillation 04/05/2017 documented as of this encounter (statuses as of 07/17/2019) Social History Tobacco Use Types Packs/Day Years Used Date Former Smoker Smokeless Tobacco: Never Used Alcohol Use Drinks/Week oz/Week Comments Yes rarely Sex Assigned at Date Recorded Not on file Job Start Date Occupation Industry Not on file Not on file Not on file Travel History Travel Start Travel End documented as of this encounter Nursing Notes * Suly Hood OSA - 07/17/2019 3:20 PM EST Outpatient referral and office note dated 07/13/19 faxed to Marylu @ [facility]. PHYLLIS Olivia 07/17/2019 3:21 PM documented in this encounter Plan of Treatment Upcoming Encounters Date Type Specialty Care Team Description 08/25/2019 Office Visit Orthopedic Surgery Scott Correa MD [address] [place] [address] Health Maintenance Due Date Last [...] Documents on File Type Date Recorded Patient Kieselguhr Regenerator Operator Expl anation Advanced Directive Advanced Directive
--- OUTSIDE RECORDS SUMMARY | 2023-02-21 17:49 | External Medical Summary | Summary of Care ---
Author Name Unknown Organization [place] [address] Care Team Providers Care Double Ending Machine Operator Name Role Phone Lanette Roman MD Primary Care Provider [phone] Encounter Details Date Type Department Care Team Description 06/24/2019 Orders Only Unspecified Department Jori Dong MD Allergies No Known Allergiesdocumented as of this encounter (statuses as of 07/20/2019) Medications Medication Sig Dispensed Refills Start Date [...] Active DilTIAZem HCl ER Beads 240 MG [id number]:Chroni c atrial fibrillation TAKE ONE CAPSULE BY MOUTH DAILY 90 Cap 3 06/08/2018 Active KLOR-CON M20 20 MEQ TBCRIndications:Atrial fibrillation (HCC) TAKE 1 TABLET BY MOUTH EVERY DAY 90 Tab 3 04/19/2019 Active documented as of this encounter (statuses as of 07/20/2019) Active Problems Problem Noted Date HTN, goal below 140/90 04/13/2017 Obesity, morbid (more than 100 lbs over ideal weight or BMI > 40) 04/13/2017 Hypothyroidism 04/13/2017 Atrial fibrillation 04/05/2017 documented as of this encounter (statuses as of 07/20/2019) Social History Tobacco Use Types Packs/Day Years Used Date Former Smoker Smokeless Tobacco: Never Used Alcohol Use Drinks/Week oz/Week Comments Yes rarely Sex Assigned at Date Recorded Not on file Job Start Date Occupation Industry Not on file Not on file Not on file Travel History Travel Start Travel End documented as of this encounter Plan of Treatment Upcoming Encounters Date Type Specialty Care Team Description 08/25/2019 Office Visit Orthopedic Surgery Scott Correa MD [address] [place] [address] Health Maintenance Due Date Last [...] - GENERAL RAD (IMAGES ONLY,NO REPORT) Routine 06/24/2019 12:45 PM EST documented in this encounter Results * RADIOLOGY EXAM - GENERAL RAD (IMAGES ONLY,NO REPORT) (06/24/2019 12:45 PM EST) Specimen Narrative Performed At This is an imaging study not interpreted or resulted by a [facility] or [facility] contracted radiologist documented in this encounter Advance Directives Documents on File Type Date Recorded Patient Blow Moulding Machine Operator Expl anation Advanced Directive Advanced Directive
--- OUTSIDE RECORDS SUMMARY | 2023-02-21 17:49 | External Medical Summary ---
Author Name Unknown Address Unknown Organization K01:[facility] [place] [place] [address] [place] [address] Laboratory Report Ordering Provider Test Date Status JIMY TORRES 09/30/2021 00:57:00 Final Observation Date Value Abnormality Reference (Units ) Status BUN 09/30/2021 00:57:00 6 6-20 (mg/dL) Final Creatinine 09/30/2021 00:57:00 0.8 0.6-1.2 (mg/dL) Final Glomerular filtration rate/1.73 sq M.predicted [Volume Rate/Area] in Serum, Plasma or Blood by Creatinine-based formula (CKD-EPI) 09/30/2021 00:57:00 >90 >=60 (mL/min) Final Performing Location [facility] [place] [place] [address] [place] [address]
--- OUTSIDE RECORDS SUMMARY | 2023-02-21 17:49 | External Medical Summary | Summary of Care ---
Author Name Unknown Organization [place] [address] Care Team Providers Care Cook Room Supervisor Name Role Phone Lanette Roman MD Primary Care Provider [phone] [phone] Encounter Details Date Type Department Care Team Description 04/06/2018 Result Scan Unspecified Department <No scans attached> Allergies No Known Allergiesas of this encounter Medications Medication Sig Dispensed Refills Start Date [...] Active DilTIAZem HCl ER Beads 240 MG [id number]:Chroni c atrial fibrillation (HCC) Take 1 Cap by [...] mouth daily with dinner. 0 11/16/2017 Active Potassium Chloride ER 20 MEQ TBCR Take 1 Tab by mouth daily. 90 Tab 3 02/17/2018 Active as of this encounter Active Problems Problem Noted Date HTN, goal below 140/90 04/13/2017 Obesity, morbid (more than 100 lbs over ideal weight or BMI > 40) 04/13/2017 Hypothyroidism 04/13/2017 Atrial fibrillation 04/05/2017 as of this encounter Social History Tobacco Use Types Packs/Day Years Used Date Former Smoker Smokeless Tobacco: Never Used Alcohol Use Drinks/Week oz/Week Comments Yes rarely Sex Assigned at Date Recorded Not on file Job Start Date Occupation Industry Not on file Not on file Not on file Travel History Travel Start Travel End as of this encounter Plan of Treatment [...] 07/18/2017 10/27/2007 Influenza Vaccine (FLU shot) (#1) 2018 as of this encounter Implants Not on fileas of this encounter Procedures Procedure Name Priority Date/Time Associated Diagnosis Comments HOLTER SCANNED RESULT 04/06/2018 in this encounter Results * HOLTER SCANNED RESULT (04/06/2018) Narrative Performed At in this encounter Advance Directives Patient has advance care planning documents on file. For more information, please contact: [place] [id number]
--- OUTSIDE RECORDS SUMMARY | 2023-02-21 17:49 | External Medical Summary | Summary of Care ---
Author Name Unknown Organization [facility] [address] Care Team Providers Care Rehabilitation Director Name Role Phone Lanette Roman MD Primary Care Provider [phone] [phone] Encounter Details Date Type Department Care Team Description 09/24/2021 Telephone Infectious Disease, [place] [address] [place], [place] [id number] Mansi Aguayo MD [address] [place], [place] [id number] Allergies No known active allergiesdocumented as of this encounter (statuses as of 09/24/2021) Medications Medication Sig Dispensed Refills Start Date [...] Active DilTIAZem HCl ER Beads 240 MG [id number]:Chroni c atrial fibrillation (HCC) TAKE ONE CAPSULE BY MOUTH DAILY 90 Cap 3 06/08/2018 Active Klor-Con M20 20 MEQ Oral Tablet Extended Release (Potassium Chloride Radha ER)Indications:Atrial fibrillation (HCC) TAKE 1 TABLET BY MOUTH EVERY DAY 90 Tab 3 03/25/2021 Active documented as of this encounter (statuses as of 09/24/2021) Active Problems Problem Noted Date HTN, goal below 140/90 04/13/2017 Obesity, morbid (more than 100 lbs over ideal weight or BMI > 40) 04/13/2017 Hypothyroidism 04/13/2017 Atrial fibrillation 04/05/2017 documented as of this encounter (statuses as of 09/24/2021) Social History Tobacco Use Types Packs/Day Years [...] PM EDT Pt was a consult from [facility]. Being treated with 12gm IV ampicillin continuous [...] Health Maintenance Due Date Last Done Comments OLGA-19 Vaccine (1) 1965 Depression Screening, Annual for [...] Documents on File Type Date Recorded Patient Spanish Speaking Babysitter Expl anation Advanced Directive Advanced Directive Advanced Directive Advanced Directive Care Teams Rehabilitation Director Relationship Specialty Start Date End Date Lanette Roman MD [address] [place] [address] PCP - General 12/26/05 documented as of this encounter
--- OUTSIDE RECORDS SUMMARY | 2023-02-21 17:49 | External Medical Summary | Summary of Care ---
Author Name Unknown Organization [place] [address] Care Team Providers Care [address] Man Name Role Phone Lanette Roman MD Primary Care Provider [phone] [phone] Reason for Referral * Evaluate & Treat - Unlimited Visits (Within 30 days (routine)) Status Reason Specialty Diagnoses / Procedures Referred By Contact Referred To Contact Pending Review Specialty Services Required Orthopaedic Surgery Diagnoses Back pain William Garner PA-C [address] [place] [address] Encounter Details Date Type Department Care Team Description 07/06/2019 Orders Only [facility] [address] *DO NOT REMOVE THIS DEPARTMENT* [place] [address] Request, External Referral Back pain* Allergies No Known Allergiesdocumented as of this encounter (statuses as of 07/06/2019) Medications Medication Sig Dispensed Refills Start Date [...] Active DilTIAZem HCl ER Beads 240 MG [id number]:Chroni c atrial fibrillation TAKE ONE CAPSULE BY MOUTH DAILY 90 Cap 3 06/08/2018 Active KLOR-CON M20 20 MEQ TBCRIndications:Atrial fibrillation (HCC) TAKE 1 TABLET BY MOUTH EVERY DAY 90 Tab 3 04/19/2019 Active documented as of this encounter (statuses as of 07/06/2019) Active Problems Problem Noted Date HTN, goal below 140/90 04/13/2017 Obesity, morbid (more than 100 lbs over ideal weight or BMI > 40) 04/13/2017 Hypothyroidism 04/13/2017 Atrial fibrillation 04/05/2017 documented as of this encounter (statuses as of 07/06/2019) Social History Tobacco Use Types Packs/Day Years Used Date Former Smoker Smokeless Tobacco: Never Used Alcohol Use Drinks/Week oz/Week Comments Yes rarely Sex Assigned at Date Recorded Not on file Job Start Date Occupation Industry Not on file Not on file Not on file Travel History Travel Start Travel End documented as of this encounter Plan of Treatment Scheduled Referrals Name Type Priority Associated Diagnoses Order Schedule ORTHOPAEDICS REFERRAL OP Referral Within 30 days (routine) Back pain Ordered: 07/06/2019 Health Maintenance Due Date Last Done Comments [...] as of this encounter Visit Diagnoses Diagnosis Back pain- Primary Backache, unspecified documented in this encounter Advance Directives Documents on File Type Date Recorded Patient Set Rider Expl anation Advanced Directive
--- OUTSIDE RECORDS SUMMARY | 2023-02-21 17:49 | External Medical Summary | Summary of Care ---
Author Name Unknown Organization [facility] [place] [address] Care Team Providers Care Loaf Counter Name Role Phone Lanette Roman MD Primary Care Provider [phone] [phone] Encounter Details Date Type Department Care Team Description 09/12/2021 Orders Only Orthopaedics, [address] [address] Sushila Powers MD [address] [place] [address] Allergies No known active allergiesdocumented as of [...] Active DilTIAZem HCl ER Beads 240 MG [id number]:Chroni c atrial fibrillation (HCC) TAKE ONE CAPSULE [...] - MRI (IMAGES ONLY, NO REPORT) Routine 09/12/2021 4:30 PM EDT documented in this encounter Results * RADIOLOGY EXAM - MRI (IMAGES ONLY, NO REPORT) (09/12/2021 4:30 PM EDT) Specimen Narrative Scheduling, Silent - 09/15/2021 6:41 PM EDT This is an imaging study not interpreted or resulted by a [facility] or [employer] contracted radiologist. documented in this encounter Advance Directives Documents on File Type Date Recorded Patient Customer Engineer Expl anation Advanced Directive Advanced Directive Advanced Directive Advanced Directive Care Teams Loaf Counter Relationship Specialty Start Date End Date Lanette Roman MD [address] [place] [address] [place] [address] PCP - General 12/26/05 documented as of this encounter
--- OUTSIDE RECORDS SUMMARY | 2023-02-21 17:49 | External Medical Summary | Summary of Care ---
Author Name Unknown Organization [facility] Address [place] [address] Care Team Providers Care Twist Maker Name Role Phone Lanette Roman MD Primary Care Provider [phone] Reason for Visit * Reason Comments eRx-Medication Refill Encounter Details Date Type Department Care Team Description 03/12/2020 Refill Cardiology, [facility] [address] [facility] [place] [address] Kadeem Frey, [facility] [place] [address] [phone] Atrial fibrillation (HCC) Allergies No Known Active Allergiesdocumented as of this encounter (statuses as of 03/12/2020) Medications Medication Sig Dispensed Refills Start Date [...] Active Magnesium Oxide 400 (240 Mg) MG TabletIndications: Atrial fibrillation (HCC) Take 1 Tab by mouth 2 times a day. 60 Tab 5 10/14/2017 Active rivaroxaban (XARELTO) 20 MG Tablet Take 1 Tab by mouth daily with dinner. 0 11/16/2017 Active DilTIAZem HCl ER Beads 240 MG [id number]:Ch ronic atrial fibrillation TAKE ONE CAPSULE BY MOUTH DAILY 90 Cap 3 06/08/2018 Active Klor-Con M20 20 MEQ Oral Tablet Extended Release (Potassium Chloride Radha ER)Indications:Atr ial fibrillation (HCC) TAKE 1 TABLET BY MOUTH EVERY DAY 90 Tab 1 03/12/2020 Active KLOR-CON M20 20 MEQ TBCRIndications:At rial fibrillation (HCC) TAKE 1 TABLET BY MOUTH EVERY DAY 90 Tab 3 04/19/2019 03/12/2020 Discontinued documented as of this encounter (statuses as of 03/12/2020) Active Problems Problem Noted Date HTN, goal below 140/90 04/13/2017 Obesity, morbid (more than 100 lbs over ideal weight or BMI > 40) 04/13/2017 Hypothyroidism 04/13/2017 Atrial fibrillation 04/05/2017 documented as of this encounter (statuses as of 03/12/2020) Social History Tobacco Use Types Packs/Day Years Used Date Former Smoker Smokeless Tobacco: Never Used Alcohol Use Drinks/Week oz/Week Comments Yes rarely Sex Assigned at Date Recorded Not on file documented as of this encounter Miscellaneous Notes * Telephone Encounter - Kadeem Frey DO - 03/12/2020 12:20 PM EDT Signed Prescriptions: Disp Refills Klor-Con M20 20 MEQ Oral Tablet Extended R*90 Tab 1 Sig: TAKE 1 TABLET BY MOUTH EVERY DAY Authorizing Provider: KADEEM FREY * Telephone Encounter - Luz Maria Don LPN - 03/12/2020 10:21 AM EDT Pending Prescriptions: Disp Refills Klor-Con M20 20 MEQ Oral Tablet Extended *90 Tab 1 Sig: TAKE 1 TABLET BY MOUTH EVERY DAY * Telephone Encounter - Luz Maria Don LPN - 03/12/2020 10:19 AM EDT Pending Prescriptions: Disp Refills Klor-Con M20 20 MEQ Oral Tablet Extended *90 Tab 3 Sig: TAKE 1 TABLET BY MOUTH EVERY DAY Last Office/Telemedicine Visit: 05/12/2017 Next Office Visit: No Future Appointments-last seen 2017 If no future appointments scheduled, and last appointment is greater than a year ago, please schedule patient for a follow-up appointment Last date the medication was ordered: 11 mo Pharmacy: [id number] Is this request for a controlled substance?No Urine Drug Screen:No results found for this or any previous visit. Patient Phone Numbers Labs: Lab Results Component Value Date/Time CREAT 0.9 05/13/2010 08:26 AM POTASSIUM 4.1 05/13/2010 08:26 AM TSH 3.41 10/26/2007 08:05 AM LDLCALC 134 (H) 05/13/2010 08:26 AM ALT 16 05/13/2010 08:26 AM HGBA1C 5.2 05/13/2010 08:26 AM documented in this encounter Plan of Treatment Health Maintenance Due Date Last Done Comments DTaP,Tdap,and Td Vaccines (1 - Tdap) 1979 Zoster Vaccines (1 of 2) 2010 DIABETES [...] 07/18/2017 10/27/2007 Influenza Vaccine (FLU shot) (#1) 2020 03/29/2017 MENINGOCOCCAL (MENACTRA/MENVEO) Aged Out No longer eligible based on patient's age to complete this topic Pneumococcal Vaccine: Pediatrics (0 to 5 Years) and At-Risk Patients (6 to 64 Years) Aged Out No longer eligible based on patient's age to complete this topic documented as of this encounter Implants Not on filedocumented as of this encounter Visit Diagnoses Diagnosis Atrial fibrillation (HCC) Atrial fibrillation documented in this encounter Advance Directives Documents on File Type Date Recorded Patient Breastfeeding Peer Counselor Expl anation Advanced Directive Advanced Directive
--- OUTSIDE RECORDS SUMMARY | 2023-02-21 17:49 | External Medical Summary | Summary of Care ---
Author Name Unknown Organization [facility] [place] [address] Phone Care Team Providers Care Strategic Alliances Manager Name Role Phone Lanette Roman MD Primary Care Provider [phone] [phone] Reason for Visit * Reason Comments MEDICATION REFILL Encounter Details Date Type Department Care Team Description 02/16/2018 Refill Cardiology, [facility] 132 [facility] [place] [address] Kadeem Frey, 132 [place] [address] [phone] Allergies No Known Allergiesas of this encounter [...] Active DilTIAZem HCl ER Beads 240 MG [id number]:Chroni c atrial fibrillation (HCC) Take 1 Cap [...] by mouth daily with dinner. 11/16/2017 Active Potassium Chloride ER 20 MEQ [...] Not on file as of this encounter Miscellaneous Notes * Telephone Encounter - Kadeem Frey DO - 02/17/2018 7:51 AM EDT Signed Prescriptions: Disp Refills Potassium Chloride ER 20 MEQ TBCR 90 Tab 3 Sig: Take 1 Tab by mouth daily. Authorizing Provider: KADEEM FREY * Telephone Encounter - Radha Loja LPN - 02/16/2018 1:10 PM EDT Formatting of this note may be different from the original. Pending Prescriptions: Disp Refills Potassium Chloride ER 20 MEQ TBCR 90 Tab 3 Sig: Take 1 Tab by mouth daily. Last Office Visit: 05/12/2017 Next Office Visit: No Future Appointments Last medication order date: 08/03/2017 Patient Active Problem List Diagnosis Code Atrial fibrillation (HCC) I48.91 HTN, goal below 140/90 I10 Obesity, morbid (more than 100 lbs over ideal weight or BMI > 40) (HCC) E66.01 Hypothyroidism E03.9 Labs: CREATININE(mg/dL) [facility] Dt/Tm Resulted Value Status 05/13/10 8:05/13/10 0.9 FINAL POTASSIUM(mmol/L) [facility] Dt/Tm Resulted Value Status 05/13/10 8:05/13/10 4.1 FINAL TSH(uIU/mL) [facility] Dt/Tm Resulted Value Status 10/26/07 8:05A 10/26/07 3.41 FINAL LDL (CALCULATED)(mg/dL) [facility] Dt/Tm Resulted Value Status 05/13/10 8:05/13/10 134* FINAL 01/17/09 9:31A 01/17/09 140* FINAL ALT(U/L) [facility] Dt/Tm Resulted Value Status 05/13/10 8:05/13/10 16 FINAL Hemoglobin AIC Results: HEMOGLOBIN, A1C(%) [facility] Dt/Tm Resulted Value Status 05/13/10 8:26A 05/13/10 5.2 FINAL 10/26/07 8:05A 10/26/07 5.6 FINAL in this encounter Plan of Treatment Health Maintenance Due Date Last Done Comments DTaP,Tdap,and Td Vaccines (1 - Tdap) 1979 Zoster Vaccines HMT (1 of 2) 2010 DIABETES SCREEN EVERY 3 YRS- AGE 45 [...]
--- OUTSIDE RECORDS SUMMARY | 2023-02-21 17:49 | External Medical Summary | Summary of Care ---
Author Name Unknown Organization [place] [address] Phone Care Team Providers Care Cold Roll Catcher Name Role Phone Lanette Roman MD Primary Care Provider [phone] Encounter Details Date Type Department Care Team Description 11/01/2017 Result Scan Cardiology, [facility] [address] [facility] [place] [address] Kadeem Frey, [address] [facility] [place] [address] [phone] <No scans attached> Allergies No Known Allergiesas [...] Active DilTIAZem HCl ER Beads 240 MG [id number]:Chroni c atrial fibrillation (HCC) Take 1 Cap [...] Encounters Date Type Specialty Care Team Description 02/17/2018 Office Visit Cardiology Kadeem Frey, DO 132 [facility] [place] [address] [phone] Health Maintenance Due Date Last Done Comments DTaP,Tdap,and Td Vaccines (1 - Tdap) 1979 DIABETES SCREEN EVERY 3 YRS- AGE 45 AND ABOVE 05/13/2013 05/13/2010, 05/13/2010, 01/17/2009, Additional history exists LIPID SCREEN EVERY 5 YRS-MEN AGE 35-75 05/13/2015 05/13/2010, 01/17/2009, 10/26/2007 *BASIC METABOLIC PANEL (BMP) FOR HTN YEARLY 04/11/2017 *DEPRESSION SCREENING, PAULINO Mccarthy FOR PTS 18 AND OVER 04/11/2017 *TSH FOR THYROID MEDICATION MONITORING YEARLY 04/11/2017 *URINE PROTEIN ONCE FOR HTN-DIPSTICK ACCEPTABLE 04/17/2017 *COLORECTAL CANCER SCREENING (COLONOSCOPY 10 YEARS; SIGMOIDOSCOPY 5 YEARS; COLOGUARD 3 YEARS; FOBT 1 YEAR),AGES 50-75 07/18/2017 10/27/2007 Influenza Vaccine (FLU shot) (Season Ended) 2018 as of this encounter Implants Not on fileas of this encounter Results * HOLTER SCANNED RESULT (11/01/2017) in this encounter
--- OUTSIDE RECORDS SUMMARY | 2023-02-21 17:49 | External Medical Summary | Summary of Care ---
Author Name Unknown Organization [place] [address] Care Team Providers Care Edging Machine Feeder Name Role Phone Lanette Roman MD Primary Care Provider [phone] Reason for Referral * Evaluate & Treat - Unlimited Visits (Within 10 days (routine)) Status Reason Specialty Diagnoses / Procedures Referred By Contact Referred To Contact Pending Review Specialty Services Required Orthopaedic Surgery Diagnoses Lumbar herniated disc Acute left-sided low back pain with left-sided sciatica Jori Dong DO [address] [place] [address] * Evaluate & Treat - Unlimited Visits (Within 3 days (urgent)) Status Reason Specialty Diagnoses / Procedures Referred By Contact Referred To Contact Pending Review Specialty Services Required Pain Management Diagnoses Lumbar herniated disc Acute left-sided low back pain with left-sided sciatica Jori Dong DO [address] [place] [address] Reason for Visit * Reason Comments NEW PATIENT Left back , hip, and leg pain * Evaluate & Treat - Unlimited Visits (Within 30 days (routine)) Status Reason Specialty Diagnoses / Procedures Referred By Contact Referred To Contact Pending Review Specialty Services Required Orthopaedic Surgery Diagnoses Back pain William Garner PA-C [address] [place] [address] [place] [address] Encounter Details Date Type Department Care Team Description 07/13/2019 Office Visit Orthopaedics [address] [place] [address] Jori Dong DO [address] [place] [address], [place] [address] [phone] Lumbar herniated disc*; Acute left-sided low back pain with left-sided sciatica Allergies No Known Allergiesdocumented as of this encounter (statuses as of 07/13/2019) Medications Medication Sig Dispensed Refills Start Date [...] Active DilTIAZem HCl ER Beads 240 MG [id number]:Chroni c atrial fibrillation TAKE ONE CAPSULE BY MOUTH DAILY 90 Cap 3 06/08/2018 Active KLOR-CON M20 20 MEQ TBCRIndications:Atrial fibrillation (HCC) TAKE 1 TABLET BY MOUTH EVERY DAY 90 Tab 3 04/19/2019 Active documented as of this encounter (statuses as of 07/13/2019) Active Problems Problem Noted Date HTN, goal below 140/90 04/13/2017 Obesity, morbid (more than 100 lbs over ideal weight or BMI > 40) 04/13/2017 Hypothyroidism 04/13/2017 Atrial fibrillation 04/05/2017 documented as of this encounter (statuses as of 07/13/2019) Social History Tobacco Use Types Packs/Day Years [...] Sign Reading Time Taken Comments Blood Pressure 134/86 07/13/2019 11:17 AM EST Pulse 125 07/13/2019 11:17 AM EST Temperature - - Respiratory Rate - - Oxygen Saturation - - Inhaled Oxygen Concentration - - Weight 183.7 kg (405 lb) 07/13/2019 11:17 AM EST Height 177.8 cm (5' 10") 07/13/2019 11:17 AM EST Body Mass Index 58.11 07/13/2019 11:17 AM EST documented in this encounter Progress Notes * Fco Lazaro ATC - 07/13/2019 11:31 AM EST Fco Galdamez ATC, wale scribing for and in the presence of Dr. Dong. HPI: Anton Nelson is a 59 year old morbidly obese male with a history of AFib on Xarelto who presents with left sided low back pain. He has had back and hip pain for 3 weeks. He has a dull ache with occasional shooting pain. He has pain radiating down his leg to his ankle. He was evaluated at [facility] where an MRI was ordered and he followed up with a orthopedic spine surgeon and told he needed surgery but had to be done at a [facility] facility. Therefore, as opposed towaiting 3 weeks to get in to [facility] in the [place] he was seen at [facility] earlier which presented him to me. He was also started on multiple injuries except as tramadol, prednisone, and gabapentin 300 mg three times daily with minimal relief. Onset: acute Location: Low back, hip Duration: 3 weeks Characterization of pain: dull, shooting Timing of pain: Intermittent Alleviating factors: sitting in certain positions Exacerbating factors: laying down, walking Radiation of pain: yes Numbness/tingling: no LE weakness: no Red flag sx: no Prior injury: no Prior Treatment: -Physical Therapy? no When? How long? -Meds? yes -Injections? no Prior Imaging? MRI from [facility] in [place] ROS: Constitutional:Normal Skin: Negative HEENT: Normal Cardiovascular: Normal Pulmonary: Normal Gastrointestinal: Normal Genitourinary: Normal Endocrine/Metabolic: Normal Neurologic: Normal Musculoskeletal: as per HPI Hematologic: Normal Psychiatric: normal All other systems are negative Patient Active Problem List Diagnosis Code Atrial fibrillation ([facility]) I48.91 HTN, goal below 140/90 I10 Obesity, morbid (more than 100 lbs over ideal weight or BMI > 40) (HCC) E66.01 Hypothyroidism E03.9 Past Medical History: No past medical history on file. Past Social History Social History Socioeconomic History Marital status: Single Spouse name: Not on file Number of children: Not on file Years of education: Not on file Highest education level: Not on file Occupational History Not on file Social Needs Financial resource strain: Not on file Food insecurity: Worry: Not on file Inability: Not on file Transportation needs: Medical: Not on file Non-medical: Not on file Tobacco Use Smoking status: Former Smoker Smokeless tobacco: Never Used Substance and Sexual Activity Alcohol use: Yes Comment: rarely Drug use: No Sexual activity: Not on file Lifestyle Physical activity: Days per week: Not on file Minutes per session: Not on file Stress: Not on file Relationships Social connections: Talks on phone: Not on file Gets together: Not on file Attends worship service: Not on file Active member of club or organization: Not on file Attends meetings of clubs or organizations: Not on file Relationship status: Not on file Intimate partner violence: Fear of current or ex partner: Not on file Emotionally abused: Not on file Physically abused: Not on file Forced sexual activity: Not on file Other Topics Concern Not on file Social History Narrative Not on file Past Surgical History: No past surgical history on file. Filed Vitals: 07/13/19 1117 BP: 134/86 Pulse: 125 Weight: (!) 183.7 kg (405 lb) Height: 1.778 m (5' 10") Referring Provider: William Garner PA-C Family History: Non-contributory relative to current complaints Medications: Reviewed in [facility] Allergies: Reviewed in Epic PE: BMI: 58.11 kg/m General: A & O x 3, NAD, normal variation in mood Heart: Regular rate and rhythm to palpation Lungs: No increased effort of respiration, equal chest wall rise Skin: warm, dry and intact Lumbar Exam: Skin: No problem TTP: None Deformities: no AROM: FF Full; Pain no Ext full; Pain yes SB Full; Pain Pain improved with SB Right Rot Full; Pain on Left side with Right sided rotation Right SLR test negative; Pain no Slump test negative; Pain no Left SLR test positive; Pain Yes radiating to Hip Slump test positive; Pain yes radiating to Knee Lumbar nerve root exam: -L2 (Hip flexion) RIGHT 5/5, LEFT 5/5; Sensation intact yes -L3-4 (Knee extension) RIGHT 5/5, LEFT 5/5; Sensation intact yes -L5 (Great toe dorsiflexion) RIGHT 5/5, LEFT 5/5; Sensation intact yes -S1 (Ankle plantar flexion) RIGHT 5/5, LEFT 5/5; Sensation intact yes Reflexes: -Patellar 2+ -Achilles 2+ Left Hip Exam: TTP: None PROM: Flex 70 Abd 45 posterior buttock pain IR 20 hip pain ER 45 Scour test: negative Ext de-rotation test: negative JAZMIN: minimal pain FADDIR: negative Log roll: negative Strength Hip flex 5/5 pain Imaging: MRI lumbar spine 07/02/2019 personally reviewed today performed and personally reviewed today. There is evidence of L4-L5 disc extrusion measuring 12 x 8 mm resulting in effacement of the left lateral recess and mass effect on the left L4 nerve root. There is also bilateral neural foraminal narrowing at L4-L5. No evidence of cauda equina. Assessment and Plan: 59-year-old morbidly obese male with history of AFib on Xarelto who presents with 4 weeks of acute left-sided low back pain with radiculopathy to the left lower extremity likely secondary to MRI findings showing a disc extrusion with mass effect on the L4 nerve root. We discussed options for treatment today including referral to Pain Mgmt for L L4 nerve root/NEERU and surgery. The patient was agreeable to pain management referral, which was placed today [facility] for him. The patient would also like a surgical opinion however Dr. Bennett is currently booked out until ich is similar to the orthopedic spine surgeons in [place] as well. Therefore the patient will likely seek a surgical evaluation in [place] and a referral was also placed for that today. The patient is currently optimized on medications for pain control such as gabapentin 300 mg three times daily, prednisone, and tramadol for pain as needed which were all prescribed him by the previous ER doctor as well as [facility] spinal surgeon. From my standpoint there is nothing non operative that would likely provide him any benefi and can follow up with me only as needed. This chart was completed in part utilizing Gene[employer] Speech Voice Recognition Software. Grammatical errors, random word insertions, pronounciation errors, and incomplete sentences are an occasional consequence of this system due to software limitations, ambient noise, and hardware issues. Any formal questions or concerns about the content, text, or information contained within the body of this dictation should be directly addressed to the provider for clarification. documented in this encounter Plan of Treatment Scheduled Referrals Name Type Priority Associated Diagnoses Order Schedule PAIN MEDICINE REFERRAL OP Referral Within 3 days (urgent) Lumbar herniated disc Acute left-sided low back pain with left-sided sciatica Ordered: 07/13/2019 ORTHOPAEDICS REFERRAL OP Referral Within 10 days (routine) Lumbar herniated disc Acute left-sided low back pain with left-sided sciatica Ordered: 07/13/2019 Health Maintenance Due Date Last Done Comments [...] as of this encounter Visit Diagnoses Diagnosis Lumbar herniated disc- Primary Displacement of lumbar intervertebral disc without myelopathy Acute left-sided low back pain with left-sided sciatica documented in this encounter Advance Directives Documents on File Type Date Recorded Patient Railroad Worker Expl anation Advanced Directive Advanced Directive
--- OUTSIDE RECORDS SUMMARY | 2023-02-21 17:49 | External Medical Summary ---
Author Name Unknown Address Unknown Organization K01:[facility] [place] [address] [place] [address] Laboratory Report Ordering Provider Test Date Status JIMY TORRES 09/30/2021 00:57:00 Final Observation Date Value Abnormality Reference (Units ) Status Bacteria identified in Unspecified specimen by Culture 09/30/2021 00:57:00 No growth Final Performing Location [facility] [place] [address] [place] [address]
--- OUTSIDE RECORDS SUMMARY | 2023-02-21 17:49 | External Medical Summary | Summary of Care ---
Author Name Unknown Organization [place] [address] Care Team Providers Care Genetics Nurse Name Role Phone Lanette Roman MD Primary Care Provider [phone] Encounter Details Date Type Department Care Team Description 09/29/2021 Scan Encounter Infectious Disease, [place] [address] [place] [address] Wilman Paz MD [address], [place] [id number] <No scans attached> Allergies No known active allergiesdocumented as of this encounter (statuses as of 09/29/2021) Medications Medication Sig Dispensed Refills Start Date [...] Active DilTIAZem HCl ER Beads 240 MG [id number]:Chroni c atrial fibrillation (HCC) TAKE ONE CAPSULE BY MOUTH DAILY 90 Cap 3 06/08/2018 Active Klor-Con M20 20 MEQ Oral Tablet Extended Release (Potassium Chloride Radha ER)Indications:Atrial fibrillation (HCC) TAKE 1 TABLET BY MOUTH EVERY DAY 90 Tab 3 03/25/2021 Active documented as of this encounter (statuses as of 09/29/2021) Active Problems Problem Noted Date HTN, goal below 140/90 04/13/2017 Obesity, morbid (more than 100 lbs over ideal weight or BMI > 40) 04/13/2017 Hypothyroidism 04/13/2017 Atrial fibrillation 04/05/2017 documented as of this encounter (statuses as of 09/29/2021) Social History Tobacco Use Types Packs/Day Years [...] Documents on File Type Date Recorded Patient Molder Vacuum Expl anation Advanced Directive Advanced Directive Advanced Directive Advanced Directive Care Teams Genetics Nurse Relationship Specialty Start Date End Date Lanette Roman MD [address] [place] [address] [place] [address] PCP - General 12/26/05 documented as of this encounter
--- OUTSIDE RECORDS SUMMARY | 2023-02-21 17:49 | External Medical Summary | Summary of Care ---
Author Name Unknown Organization [facility] [place] [address] Care Team Providers Care Inventory Control Supervisor Name Role Phone Lanette Roman MD Primary Care Provider [phone] Encounter Details Date Type Department Care Team Description 09/12/2021 Documentation Orthopaedics, [address] [address] Sushila Powers MD [address] [place] [address] Allergies No known active allergiesdocumented as of this encounter (statuses as of 09/12/2021) Medications Medication Sig Dispensed Refills Start Date [...] Active DilTIAZem HCl ER Beads 240 MG [id number]:Chroni c atrial fibrillation (HCC) TAKE ONE CAPSULE BY MOUTH DAILY 90 Cap 3 06/08/2018 Active Klor-Con M20 20 MEQ Oral Tablet Extended Release (Potassium Chloride Radha ER)Indications:Atrial fibrillation (HCC) TAKE 1 TABLET BY MOUTH EVERY DAY 90 Tab 3 03/25/2021 Active documented as of this encounter (statuses as of 09/12/2021) Active Problems Problem Noted Date HTN, goal below 140/90 04/13/2017 Obesity, morbid (more than 100 lbs over ideal weight or BMI > 40) 04/13/2017 Hypothyroidism 04/13/2017 Atrial fibrillation 04/05/2017 documented as of this encounter (statuses as of 09/12/2021) Social History Tobacco Use Types Packs/Day Years [...] on file documented as of this encounter Progress Notes * Sushila Powers MD - 09/12/2021 7:45 PM EDT I received a call from Ronni Muhammad environmental restoration planner for [facility] at 7:15 PM History of increasing back pain No neurodeficit No bowel or bladder issues CRP elevated at 17 ESR ?33 NO white count MRI done - reported as questionable disc signal at L2-3 I reviewed the MRI after it was uploaded into life image. 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
--- OUTSIDE RECORDS SUMMARY | 2023-02-21 17:49 | External Medical Summary | Summary of Care ---
Author Name Unknown Organization [place] [address] Phone Care Team Providers Care Harvest Worker Field Crop Name Role Phone Lanette Roman MD Primary Care Provider [phone] Reason for Visit * Reason Comments eRx-Medication Refill Encounter Details Date Type Department Care Team Description 11/04/2017 Refill Pharmacy, [address] [place] [address] Kadeem Frey, DO 132 [facility] [place] [address] Allergies No Known Allergiesas of this encounter [...] Active DilTIAZem HCl ER Beads 240 MG [id number]:Chr onic atrial fibrillation (HCC) Take 1 Cap [...] encounter Miscellaneous Notes * Telephone Encounter - Santo Anton II, MD - 11/04/2017 11:40 AM EDT Refused Prescriptions: Disp Refills warfarin sodium (COUMADIN) 5 MG Tablet [Ph*30 Tab 2 Sig: TAKE ONE TABLET DAILY OR DIRECTED BY ANTICOAGULATION PHARMACIST. Refused By: SANTO ANTON II Reason for Refusal: Managed by another physician * Telephone Encounter - Santo Anton II, MD - 11/04/2017 11:40 AM EDT I don't prescribe Warfarin. in this encounter Plan of Treatment Upcoming Encounters Date Type Specialty Care Team Description 11/16/2017 Pharmacy Pharmacy [address] [place] [address] [phone] 02/17/2018 Office Visit Cardiology Kadeem Frey DO 132 [place] [address] [phone] Health Maintenance Due Date Last Done Comments [...]
--- OUTSIDE RECORDS SUMMARY | 2023-02-21 17:49 | External Medical Summary | Summary of Care ---
Author Name Unknown Organization [place] [address] Phone Care Team Providers Care Spun Paste Machine Operator Name Role Phone Lanette Roman MD Primary Care Provider [phone] [phone] Reason for Visit * Reason Comments eRx-Medication Refill Encounter Details Date Type Department Care Team Description 11/20/2017 Refill Cardiology, [facility] 132 [facility] [place] [address] Kadeem Frey, 132 [place] [address] [phone] Atrial fibrillation (HCC) Allergies No Known Allergiesas of this encounter [...] Active DilTIAZem HCl ER Beads 240 MG [id number]:Chroni c atrial fibrillation (HCC) Take 1 Cap [...] by mouth daily with dinner. 11/16/2017 Active as of this encounter Active Problems Problem Noted Date HTN, goal below 140/90 04/13/2017 Obesity, morbid (more than 100 lbs over ideal weight or BMI > 40) ([facility]) 04/13/2017 Hypothyroidism 04/13/2017 Atrial fibrillation ([facility]) 04/05/2017 as of this encounter Social History Tobacco Use Types Packs/Day Years Used Date Former Smoker Smokeless Tobacco: Never Used Alcohol Use Drinks/Week oz/Week Comments Yes rarely Sex Assigned at Date Recorded Not on file as of this encounter Miscellaneous Notes * Telephone Encounter - Jesusita Navarrete RN - 11/22/2017 1:51 PM EDT Refused Prescriptions: Disp Refillsamiodarone (CORDARONE) 200 MG Tablet [Phar*60 Tab 4Sig: TAKE 1 TABLET BY MOUTH 2 TIMES A DAY.Refused By: JESUSITA NAVARRETE Reason for Refusal: Course of treatment complete * Telephone Encounter - Juliana Child LPN - 11/22/2017 9:57 AM EDT Pending Prescriptions: Disp Refillsamiodarone (CORDARONE) 200 MG Tablet [Pha*60 Tab 4Sig: TAKE 1 TABLET BY MOUTH 2 TIMES A DAY. in this encounter Plan of Treatment Upcoming Encounters Date Type Specialty Care Team Description 02/17/2018 Office Visit Cardiology Kadeem Frey, DO [address] [place] [address] [phone] Health Maintenance Due Date Last Done Comments DTaP,Tdap,and Td Vaccines (1 - Tdap) 1979 DIABETES SCREEN EVERY 3 YRS- AGE 45 AND ABOVE 05/13/2013 05/13/2010, 05/13/2010, 01/17/2009, Additional history exists LIPID SCREEN EVERY 5 YRS-MEN AGE 35-75 05/13/2015 05/13/2010, 01/17/2009, 10/26/2007 *BASIC METABOLIC PANEL (BMP) FOR HTN YEARLY 04/11/2017 *DEPRESSION SCREENING, MARYELLENUA Shari FOR PTS 18 AND OVER 04/11/2017 *TSH FOR THYROID MEDICATION MONITORING YEARLY 04/11/2017 *URINE PROTEIN ONCE FOR HTN-DIPSTICK ACCEPTABLE 04/17/2017 *COLORECTAL CANCER SCREENING (COLONOSCOPY 10 YEARS; SIGMOIDOSCOPY 5 YEARS; COLOGUARD 3 YEARS; FOBT 1 YEAR),AGES 50-75 07/18/2017 10/27/2007 Influenza Vaccine (FLU shot) (Season Ended) 2018 as of this encounter Implants Not on fileas of this encounter Visit Diagnoses Diagnosis Atrial fibrillation (HCC) Atrial fibrillation in this encounter
--- OUTSIDE RECORDS SUMMARY | 2023-02-21 17:49 | External Medical Summary | Summary of Care ---
Author Name Unknown Organization [place] [address] Care Team Providers Care Sales Department Clerk Name Role Phone Lanette Roman MD Primary Care Provider [phone] Reason for Visit * Reason Comments eRx-Medication Refill Encounter Details Date Type Department Care Team Description 03/25/2021 Refill Cardiology, [facility] 132 [facility] [place] [address] Kadeem Frey, 132 [place] [address] [phone] Atrial fibrillation (HCC) Allergies No Known Active Allergiesdocumented as of this encounter (statuses as of 03/25/2021) Medications Medication Sig Dispensed Refills Start Date [...] Active DilTIAZem HCl ER Beads 240 MG [id number]:Ch ronic atrial fibrillation (HCC) TAKE ONE CAPSULE BY MOUTH DAILY 90 Cap 3 06/08/2018 Active Klor-Con M20 20 MEQ Oral Tablet Extended Release (Potassium Chloride Radha ER)Indications:Atr ial fibrillation (HCC) TAKE 1 TABLET BY MOUTH EVERY DAY 90 Tab 3 03/25/2021 Active Klor-Con M20 20 MEQ Oral Tablet Extended Release (Potassium Chloride Radha ER)Indications:Atr ial fibrillation (HCC) TAKE 1 TABLET BY MOUTH EVERY DAY 90 Tab 1 08/22/2020 03/25/2021 Discontinued documented as of this encounter (statuses as of 03/25/2021) Active Problems Problem Noted Date HTN, goal below 140/90 04/13/2017 Obesity, morbid (more than 100 lbs over ideal weight or BMI > 40) 04/13/2017 Hypothyroidism 04/13/2017 Atrial fibrillation 04/05/2017 documented as of this encounter (statuses as of 03/25/2021) Social History Tobacco Use Types Packs/Day Years Used Date Former Smoker Smokeless Tobacco: Never Used Alcohol Use Drinks/Week oz/Week Comments Yes rarely Sex Assigned at Date Recorded Not on file documented as of this encounter Miscellaneous Notes * Telephone Encounter - Kadeem Frey DO - 03/25/2021 10:32 AM EDT Signed Prescriptions: Disp Refills Klor-Con M20 20 MEQ Oral Tablet Extended R*90 Tab 3 Sig: TAKE 1 TABLET BY MOUTH EVERY DAY Authorizing Provider: KADEEM FREY * Telephone Encounter - Demetris Lopez RN - 03/25/2021 7:30 AM EDT Pending Prescriptions: Disp Refills Klor-Con M20 20 MEQ Oral Tablet Extended *90 Tab 3 Sig: TAKE 1 TABLET BY MOUTH EVERY DAY * Telephone Encounter - Demetris Lopez RN - 03/25/2021 7:29 AM EDT Pending Prescriptions: Disp Refills Klor-Con M20 20 MEQ Oral Tablet Extended *90 Tab 3 Sig: TAKE 1 TABLET BY MOUTH EVERY DAY Last Office/Telemedicine Visit: 05/12/2017 Visit date not found Last medication order date: 08/22/2020 Have you choosen a preferred pharm?? yes Patient Active Problem List Diagnosis Code Atrial fibrillation ([facility]) I48.91 HTN, goal below 140/90 I10 Obesity, morbid (more than 100 lbs over ideal weight or BMI > 40) ([facility]) E66.01 Hypothyroidism E03.9 Labs: Lab Results Component Value Date/Time CREATININE - [facility] 0.9 05/13/2010 08:26 AM Lab Results Component Value Date/Time POTASSIUM - [facility] 4.1 05/13/2010 08:26 AM Lab Results Component Value Date/Time TSH - [facility] 3.41 10/26/2007 08:05 AM Lab Results Component Value Date/Time LDL CHOLESTEROL (CALCULATED) - [facility] 134 (H) 05/13/2010 08:26 AM LDL CHOLESTEROL (CALCULATED) - [facility] 140 (H) 01/17/2009 09:31 AM Lab Results Component Value Date/Time ALT - [facility] 16 05/13/2010 08:26 AM Hemoglobin AIC Results: Lab Results Component Value Date/Time HEMOGLOBIN A1C - [facility] 5.2 05/13/2010 08:26 AM HEMOGLOBIN A1C - [facility] 5.6 10/26/2007 08:05 AM documented in this encounter Plan of Treatment Health Maintenance Due Date Last Done Comments COVID-19 Vaccine (1) 1972 DTaP,Tdap,and Td Vaccines (1 - Tdap) [...] 07/18/2017 10/27/2007 Influenza Vaccine (FLU shot) (#1) 2021 03/29/2017 MENINGOCOCCAL (MENACTRA/MENVEO) Aged Out No longer [...] Documents on File Type Date Recorded Patient Travel Writer Expl anation Advanced Directive Advanced Directive
--- OUTSIDE RECORDS SUMMARY | 2023-02-21 17:49 | External Medical Summary | Summary of Care ---
Author Name Unknown Organization [place] [address] Care Team Providers Care Coater Operator Insulation Board Name Role Phone Lanette Roman MD Primary Care Provider [phone] Encounter Details Date Type Department Care Team Description 07/02/2019 Orders Only Unspecified Department Jori Dong MD [...] Active DilTIAZem HCl ER Beads 240 MG [id number]:Chroni c atrial fibrillation TAKE ONE CAPSULE BY [...] Team Description 08/25/2019 Office Visit Orthopedic Surgery Sctot Correa MD [address] [place] [address] Health Maintenance Due Date Last [...] - MRI (IMAGES ONLY, NO REPORT) Routine 07/02/2019 11:30 AM EST documented in this encounter Results * RADIOLOGY EXAM - MRI (IMAGES ONLY, NO REPORT) (07/02/2019 11:30 AM EST) Specimen Narrative Performed At This is an imaging study not interpreted or resulted by a [facility] contracted radiologist documented in this encounter Advance Directives Documents on File Type Date Recorded Patient Auto Body Shop Manager Expl anation Advanced Directive Advanced Directive
--- OUTSIDE RECORDS SUMMARY | 2023-02-21 17:49 | External Medical Summary | Summary of Care ---
Author Name Unknown Organization [place] [address] Care Team Providers Care Corduroy Brusher Operator Name Role Phone Lanette Roman MD Primary Care Provider [phone] Reason for Visit * Reason Comments eRx-Medication Refill Encounter Details Date Type Department Care Team Description 04/18/2019 Refill Cardiology, [facility] 132 [facility] [place] [address] Kadeem Frey, [address] [facility] [place] [address] [phone] Atrial fibrillation (HCC)* Allergies No Known Allergiesdocumented as of this encounter (statuses as of 04/19/2019) Medications Medication Sig Dispensed Refills Start Date [...] Active DilTIAZem HCl ER Beads 240 MG [id number]:Chr onic atrial fibrillation TAKE ONE CAPSULE BY MOUTH DAILY 90 Cap 3 06/08/2018 Active KLOR-CON M20 20 MEQ TBCRIndications:Atr ial fibrillation (HCC) TAKE 1 TABLET BY MOUTH EVERY DAY 90 Tab 3 04/19/2019 Active Potassium Chloride ER 20 MEQ TBCR Take 1 Tab by mouth daily. 90 Tab 3 02/17/2018 04/18/2019 Discontinued (Refill) documented as of this encounter (statuses as of 04/19/2019) Active Problems Problem Noted Date HTN, goal below 140/90 04/13/2017 Obesity, morbid (more than 100 lbs over ideal weight or BMI > 40) 04/13/2017 Hypothyroidism 04/13/2017 Atrial fibrillation 04/05/2017 documented as of this encounter (statuses as of 04/19/2019) Social History Tobacco Use Types Packs/Day Years Used Date Former Smoker Smokeless Tobacco: Never Used Alcohol Use Drinks/Week oz/Week Comments Yes rarely Sex Assigned at Date Recorded Not on file Job Start Date Occupation Industry Not on file Not on file Not on file Travel History Travel Start Travel End documented as of this encounter Miscellaneous Notes * Telephone Encounter - Kadeem Frey DO - 04/19/2019 10:27 AM EST Signed Prescriptions: Disp Refills KLOR-CON M20 20 MEQ TBCR 90 Tab 3 Sig: TAKE 1 TABLET BY MOUTH EVERY DAY Authorizing Provider: KADEEM FREY * Telephone Encounter - Hilario Burns LPN - 04/19/2019 8:59 AM EST Pending Prescriptions: Disp Refills KLOR-CON M20 20 MEQ TBCR [Pharmacy Med Na*90 Tab 3 Sig: TAKE 1 TABLET BY MOUTH EVERY DAY * Telephone Encounter - Meenakshi Kramer LPN - 04/18/2019 4:40 PM EST Pending Prescriptions: Disp Refills KLOR-CON M20 20 MEQ TBCR [Pharmacy Med Na*90 Tab 3 Sig: TAKE 1 TABLET BY MOUTH EVERY DAY * Telephone Encounter - Meenakshi Kramer LPN - 04/18/2019 4:36 PM EST Pending Prescriptions: Disp Refills KLOR-CON M20 20 MEQ TBCR [Pharmacy Med Na*90 Tab 3 Sig: TAKE 1 TABLET BY MOUTH EVERY DAY Last Office Visit: 05/12/2017 Next Office Visit: No Future Appointments Last date the medication was ordered: 02/17/18 Patient Active Problem List Diagnosis Code Atrial fibrillation ([facility]) I48.91 HTN, goal below 140/90 I10 Obesity, morbid (more than 100 lbs over ideal weight or BMI > 40) ([facility]) E66.01 Hypothyroidism E03.9 Labs: CREATININE(mg/dL) [facility] Dt/Tm Resulted Value Status 05/13/10 8:26A 05/13/10 0.9 FINAL POTASSIUM(mmol/L) [facility] Dt/Tm Resulted Value Status 05/13/10 8:26A 05/13/10 4.1 FINAL TSH(uIU/mL) [facility] Dt/Tm Resulted Value Status 10/26/07 8:05A 10/26/07 3.41 FINAL LDL (CALCULATED)(mg/dL) [facility] Dt/Tm Resulted Value Status 05/13/10 8:A 05/13/10 134* FINAL 01/17/09 9:31A 01/17/09 140* FINAL ALT(U/L) [facility] Dt/Tm Resulted Value Status 05/13/10 8:26A 05/13/10 16 FINAL Hemoglobin AIC Results: HEMOGLOBIN, A1C(%) [facility] Dt/Tm Resulted Value Status 05/13/10 8:26A 05/13/10 5.2 FINAL 10/26/07 8:05A 10/26/07 5.6 FINAL documented in this encounter Plan of Treatment Health Maintenance Due Date Last Done Comments DTaP,Tdap,and Td Vaccines (1 - Tdap) 1971 DIABETES SCREEN EVERY 3 YRS-AGE 45 AND [...] Vaccine (FLU shot) (#1) 2019 03/29/2017 MENINGOCOCCAL (MENACTRA) Aged Out No longer eligible based on patient's age to complete this topic Pneumococcal Vaccine: Pediatrics (0 to 5 Years) and At-Risk Patients (6 to 64 Years) Aged Out No longer eligible based on patient's age to complete this topic documented as of this encounter Implants Not on filedocumented as of this encounter Visit Diagnoses Diagnosis Atrial fibrillation (HCC)- Primary Atrial fibrillation documented in this encounter Advance Directives Documents on File Type Date Recorded Patient Distribution Operations Manager Expl anation Advanced Directive
--- OUTSIDE RECORDS SUMMARY | 2023-02-21 17:49 | External Medical Summary | Summary of Care ---
Author Name Unknown Organization [place] [address] Care Team Providers Care Icu Tech Name Role Phone Lanette Roman MD Primary Care Provider [phone] Reason for Referral * Evaluate & Treat - Unlimited Visits (Within 10 days (routine)) Status Reason Specialty Diagnoses / Procedures Referred By Contact Referred To Contact Pending Review Specialty Services Required Orthopaedic Surgery Diagnoses Lumbar herniated disc Acute left-sided low back pain with left-sided sciatica Jori Dong DO [address] [place] [id number] * Evaluate & Treat - Unlimited Visits (Within 3 days (urgent)) Status Reason Specialty Diagnoses / Procedures Referred By Contact Referred To Contact Pending Review Specialty Services Required Pain Management Diagnoses Lumbar herniated disc Acute left-sided low back pain with left-sided sciatica Jori Dong DO [address] [place] [address] Reason for Visit * Reason Comments NEW PATIENT Left back , hip, and leg pain * Evaluate & Treat - Unlimited Visits (Within 30 days (routine)) Status Reason Specialty Diagnoses / Procedures Referred By Contact Referred To Contact Pending Review Specialty Services Required Orthopaedic Surgery Diagnoses Back pain William Garner PA-C [address] [place] [address] [place] [address] Encounter Details Date Type Department Care Team Description 07/13/2019 Office Visit Orthopaedics [address] [place] [address] Jori Dong DO [address] [place] [address], [place] [address] [phone] Lumbar herniated disc*; Acute left-sided low back [...] Active DilTIAZem HCl ER Beads 240 MG [id number]:Chroni c atrial fibrillation TAKE ONE CAPSULE BY [...] to his ankle. He was evaluated at [facility] ER where an MRI was ordered and he followed up with a orthopedic spine surgeon and told he needed surgery but had to be done at a [facility] facility. Therefore, as opposed towaiting 3 weeks to get in to [facility] in the [place] he was seen at [facility] earlier which presented him to me. He [...] yes -Injections? no Prior Imaging? MRI from [facility] in [place] ROS: Constitutional:Normal Skin: Negative HEENT: Normal Cardiovascular: Normal Pulmonary: Normal Gastrointestinal: Normal Genitourinary: Normal Endocrine/Metabolic: Normal Neurologic: Normal Musculoskeletal: as per HPI Hematologic: Normal Psychiatric: normal All other systems are negative Patient Active Problem List Diagnosis Code Atrial fibrillation ([facility]) I48.91 HTN, goal below 140/90 I10 Obesity, [...] file Gets together: Not on file Attends pentecostalism service: Not on file Active member of [...] relative to current complaints Medications: Reviewed in [facility] Allergies: Reviewed in Epic PE: BMI: 58.11 [...] referral, which was placed today [facility] this is closer for him. The patient would also like a surgical opinion however Dr. Bennett is currently booked out until ich is similar to the orthopedic spine surgeons in [place] as well. Therefore the patient will likely seek a surgical evaluation in [place] and a referral was also placed for that today. The patient is currently optimized on medications for pain control such as gabapentin 300 mg three times daily, prednisone, and tramadol for pain as needed which were all prescribed him by the previous ER doctor as well as [facility] spinal surgeon. From my standpoint there is nothing non operative that would likely provide him any benefi and can follow up with me only as needed. This chart was completed in part utilizing [employer] Speech Voice Recognition Software. Grammatical errors, random [...] Documents on File Type Date Recorded Patient Network Security Administrator Expl anation Advanced Directive Advanced Directive
--- OUTSIDE RECORDS SUMMARY | 2023-02-21 17:49 | External Medical Summary | Summary of Care ---
Author Name Unknown Organization [place] [address] Care Team Providers Care Ventilator Specialist Name Role Phone Lanette Roman MD Primary Care Provider [phone] Reason for Visit * Reason Comments eRx-Medication Refill Encounter Details Date Type Department Care Team Description 06/05/2018 Refill Cardiology, [facility] 132 [facility] [place] [address] Kadeem Frey, [address] [facility] [place] [address] [phone] Chronic atrial fibrillation (HCC) Allergies No Known Allergiesas of [...] mouth daily. 90 Tab 3 02/17/2018 Active DilTIAZem HCl ER Beads 240 MG [id number]:Ch ronic atrial fibrillation (HCC) TAKE ONE CAPSULE BY MOUTH DAILY 90 Cap 3 06/08/2018 Active DilTIAZem HCl ER Beads 240 MG [id number]:Ch ronic atrial fibrillation (HCC) Take 1 Cap by mouth daily. 90 Cap 3 05/12/2017 06/05/2018 Discontinued as of this encounter Active Problems [...] Start Travel End as of this encounter Miscellaneous Notes * Telephone Encounter - Kadeem Frey DO - 06/08/2018 8:42 AM EST Signed Prescriptions: Disp Refills DilTIAZem HCl ER Beads 240 MG CP24 90 Cap 3 Sig: TAKE ONE CAPSULE BY MOUTH DAILY Authorizing Provider: KADEEM FREY * Telephone Encounter - Lina Capellan LPN - 06/06/2018 2:05 PM EST Pending Prescriptions: Disp Refills DilTIAZem HCl ER Beads 240 MG CP24 [Pharm*90 Cap 3 Sig: TAKE ONE CAPSULE BY MOUTH DAILY * Telephone Encounter - Lina Capellan LPN - 06/06/2018 2:05 PM EST Pending Prescriptions: Disp Refills DilTIAZem HCl ER Beads 240 MG CP24 [Pharm*90 Cap 3 Sig: TAKE ONE CAPSULE BY MOUTH DAILY Last Office Visit: 05/12/2017 Next Office Visit: No Future Appointments If no future appointments scheduled, and last appointment is greater than a year ago, please schedule patient for a follow-up appointment Last date the medication was ordered: 05/12/17 Patient Phone Numbers Labs: Lab Results Component Value Date/Time CREAT 0.9 05/13/2010 08:26 AM POTASSIUM 4.1 05/13/2010 08:26 AM TSH 3.41 10/26/2007 08:05 AM LDLCALC 134 (H) 05/13/2010 08:26 AM ALT 16 05/13/2010 08:26 AM HGBA1C 5.2 05/13/2010 08:26 AM in this encounter Plan of Treatment Health [...] Visit Diagnoses Diagnosis Chronic atrial fibrillation (HCC) Atrial fibrillation in this encounter Advance Directives Patient has advance care planning documents on file. For more information, please contact: [place] [phone]
--- OUTSIDE RECORDS SUMMARY | 2023-02-21 17:49 | External Medical Summary | Summary of Care ---
Author Name Unknown Organization [place] [address] Care Team Providers Care Group Chief Operator Name Role Phone Lanette Roman MD Primary Care Provider [phone] Reason for Visit * Reason Comments eRx-Medication Refill Encounter Details Date Type Department Care Team Description 08/22/2020 Refill Cardiology, [facility] 132 [facility] [place] [address] Kadeem Frey, 132 [facility] [address] [phone] Atrial fibrillation (HCC) Allergies No Known Active Allergiesdocumented as of this encounter (statuses as of 08/22/2020) Medications Medication Sig Dispensed Refills Start Date [...] Active DilTIAZem HCl ER Beads 240 MG [id number]:Ch ronic atrial fibrillation (HCC) TAKE ONE CAPSULE BY MOUTH DAILY 90 Cap 3 06/08/2018 Active Klor-Con M20 20 MEQ Oral Tablet Extended Release (Potassium Chloride Radha ER)Indications:Atr ial fibrillation (HCC) TAKE 1 TABLET BY MOUTH EVERY DAY 90 Tab 1 08/22/2020 Active Klor-Con M20 20 MEQ Oral Tablet Extended Release (Potassium Chloride Radha ER)Indications:Atr ial fibrillation (HCC) TAKE 1 TABLET BY MOUTH EVERY DAY 90 Tab 1 03/12/2020 08/22/2020 Discontinued documented as of this encounter (statuses as of 08/22/2020) Active Problems Problem Noted Date HTN, goal below 140/90 04/13/2017 Obesity, morbid (more than 100 lbs over ideal weight or BMI > 40) 04/13/2017 Hypothyroidism 04/13/2017 Atrial fibrillation 04/05/2017 documented as of this encounter (statuses as of 08/22/2020) Social History Tobacco Use Types Packs/Day Years Used Date Former Smoker Smokeless Tobacco: Never Used Alcohol Use Drinks/Week oz/Week Comments Yes rarely Sex Assigned at Date Recorded Not on file documented as of this encounter Miscellaneous Notes * Telephone Encounter - Kadeem Frey DO - 08/22/2020 7:57 AM EST Signed Prescriptions: Disp Refills Klor-Con M20 20 MEQ Oral Tablet Extended R*90 Tab 1 Sig: TAKE 1 TABLET BY MOUTH EVERY DAY Authorizing Provider: KADEEM FREY * Telephone Encounter - Demetris Lopez RN - 08/22/2020 7:02 AM EST Pending Prescriptions: Disp Refills Klor-Con M20 20 MEQ Oral Tablet Extended *90 Tab 1 Sig: TAKE 1 TABLET BY MOUTH EVERY DAY * Telephone Encounter - Demetris Lopez RN - 08/22/2020 7:02 AM EST Pending Prescriptions: Disp Refills Klor-Con M20 20 MEQ Oral Tablet Extended *90 Tab 1 Sig: TAKE 1 TABLET BY MOUTH EVERY DAY Last Office/Telemedicine Visit: 05/12/2017 Next Office Visit: No Future Appointments Last medication order date: 03/12/2020 Have you choosen a preferred pharm?? yes Patient Active Problem List Diagnosis Code Atrial fibrillation ([facility]) I48.91 HTN, goal below 140/90 I10 Obesity, morbid (more than 100 lbs over ideal weight or BMI > 40) ([facility]) E66.01 Hypothyroidism E03.9 Labs: Lab Results Component [...] Documents on File Type Date Recorded Patient Gold Stamper Expl anation Advanced Directive Advanced Directive
--- OUTSIDE RECORDS SUMMARY | 2023-02-21 17:49 | External Medical Summary | Summary of Care ---
Author Name Unknown Organization [place] [address] Care Team Providers Care Failure Analysis Engineer Name Role Phone Lanette Roman MD Primary Care Provider [phone] Reason for Visit * Reason Comments eRx-Medication Refill Encounter Details Date Type Department Care Team Description 02/15/2021 Refill Cardiology, [facility] 132 [facility] [place] [address] Kadeem Frey, 132 [facility] [place] [address] [phone] Atrial fibrillation (HCC) Allergies No Known Active Allergiesdocumented as of this encounter (statuses as of 02/18/2021) Medications Medication Sig Dispensed Refills Start Date [...] Active DilTIAZem HCl ER Beads 240 MG FL87Hkjzfvbcmsx:Chroni c atrial fibrillation (HCC) TAKE ONE CAPSULE BY MOUTH DAILY 90 Cap 3 06/08/2018 Active Klor-Con M20 20 MEQ Oral Tablet Extended Release (Potassium Chloride Radha ER)Indications:Atrial fibrillation (HCC) TAKE 1 TABLET BY MOUTH EVERY DAY 90 Tab 1 08/22/2020 Active documented as of this encounter (statuses as of 02/18/2021) Active Problems Problem Noted Date HTN, goal below 140/90 04/13/2017 Obesity, morbid (more than 100 lbs over ideal weight or BMI > 40) 04/13/2017 Hypothyroidism 04/13/2017 Atrial fibrillation 04/05/2017 documented as of this encounter (statuses as of 02/18/2021) Social History Tobacco Use Types Packs/Day Years Used Date Former Smoker Smokeless Tobacco: Never Used Alcohol Use Drinks/Week oz/Week Comments Yes rarely Sex Assigned at Date Recorded Not on file documented as of this encounter Miscellaneous Notes * Telephone Encounter - Jesusita Navarrete RN - 02/18/2021 10:23 AM EDT Refused Prescriptions: Disp Refills Klor-Con M20 20 MEQ Oral Tablet Extended R*90 Tab 3 Sig: TAKE 1TABLET BY MOUTH EVERY DAYRefused By: JESUSITA NAVARRETE LReason for Refusal: Managed by another physician * Telephone Encounter - Jesusita Navarrete RN - 02/18/2021 10:19 AM EDT Last cardiology evaluation 08/03/17. Pharmacy notified to send to PCP. * Telephone Encounter - Jesusita Navarrete RN - 02/18/2021 10:19 AM EDT Pending Prescriptions: Disp Refills Klor-Con M20 20 MEQ Oral Tablet Extended *90 Tab 1 Sig: TAKE 1 TABLET BY MOUTH EVERY DAY Last Office/Telemedicine Visit: 05/12/2017 Next Office Visit: No Future Appointments If no future appointments scheduled, and last appointment is greater than a year ago, please schedule patient for a follow-up appointment Last date the medication was ordered: Pharmacy: [id number] [address] [facility] Is this request for a controlled substance?No [...] Documents on File Type Date Recorded Patient Territory Supervisor Expl anation Advanced Directive Advanced Directive
--- OUTSIDE RECORDS SUMMARY | 2023-02-21 17:49 | External Medical Summary | Summary of Care ---
Author Name Unknown Organization [place] [address] Phone Care Team Providers Care Plate Embosser Name Role Phone Lanette Roman MD Primary Care Provider [phone] Reason for Visit * Reason Comments NO SHOW Encounter Details Date Type Department Care Team Description 11/02/2017 Pharmacy Pharmacy, [address] [place] [id number] [place] [id number] Chronic atrial fibrillation (HCC)* Allergies No Known [...] Active DilTIAZem HCl ER Beads 240 MG [id number]:Chr onic atrial fibrillation (HCC) Take 1 Cap [...] this encounter Progress Notes * Aric Bowen [facility] - 11/02/2017 2:28 PM EDT Noted. Sent FYI to Dr. Frey. Aric Bowen [facility], Pharm D Clinicial Pharmacist 11/02/2017, 2:28 PM * Vesta Rojas [facility] - 11/02/2017 9:32 AM EDT Called patient and left another message. Called Dr. Roman's office and left a msg requesting a callback to let us know if this patient is being monitored by their office. I called Dr. Roman's office and spoke to the person who answered the phone. Patient was just seen there on 10/29. She states that amiodorone is on his med list. They have a note that his anticoagulation is under Dr. Frey. I confirmed that we have the correct cell number. Consider sending a note to Dr. Frey that patient is not responding to us and has not had INR drawnsince June? Follow up in two weeks. in this encounter Plan of Treatment Upcoming Encounters Date Type Specialty Care Team Description 11/02/2017 Pharmacy Pharmacy [address] [place] [address] [phone] Chronic atrial fibrillation (HCC)* 11/16/2017 Pharmacy Pharmacy [address] [place] [address] [phone] 02/17/2018 Office Visit Cardiology Kadeem Frey, 132 [facility] [place] [address] [phone] Health Maintenance Due Date Last Done Comments [...]
--- OUTSIDE RECORDS SUMMARY | 2023-02-21 17:49 | External Medical Summary | Summary of Care ---
Author Name Unknown Organization [place] [address] Phone Care Team Providers Care Machinery Dismantler Name Role Phone Lanette Roman MD Primary Care Provider [phone] Reason for Visit * Reason Comments ORDER REQUEST Encounter Details Date Type Department Care Team Description 12/10/2017 Telephone Sleep Disorders, [facility] 132 [facility] [place] [address] Gypsy Wild CRNP [address] [place] [id number] ORDER REQUEST Allergies No Known Allergiesas of this encounter [...] Active DilTIAZem HCl ER Beads 240 MG [id number]:Chroni c atrial fibrillation (HCC) Take 1 Cap [...] Office Visit Cardiology Kadeem Frey, DO 132 [facility] [place] [address] [phone] Health Maintenance Due Date Last Done Comments [...] fileas of this encounter Visit Diagnoses Diagnosis PHYLLIS (obstructive sleep apnea ) - Primary Obstructive sleep apnea (adult) (pediatric) in this encounter
--- OUTSIDE RECORDS SUMMARY | 2023-02-21 17:50 | External Medical Summary | Summary of Care ---
Author Name Unknown Organization [place] [address] Phone Care Team Providers Care Chief Investment Officer Name Role Phone Lanette Roman MD Primary Care Provider [phone] Reason for Visit * Reason Comments APPOINTMENT auth monica wood 04/14 Encounter Details Date Type Department Care Team Description 04/14/2017 Telephone Cardiology, [facility] 132 [facility] [place] [address] Kadeem Frey, 132 [facility] [place] [address] [phone] APPOINTMENT (auth monica lernerdelia 04/14) Allergies No Known Allergiesas of this encounter Medications Prescription Sig. Disp. Refills Start Date End Date Status warfarin sodium (COUMADIN) 10 MG Tablet Take as directed by anticoagulation pharmacist. 30 Tab 5 04/05/2017 Active amiodarone (CORDARONE) 200 MG Tablet Take 200 mg by mouth 2 times a day. Active escitalopram (LEXAPRO) 10 MG Tablet Take 10 mg by mouth daily. Active furosemide (LASIX) 40 MG Tablet Take 40 mg by mouth daily. Active levothyroxine (SYNTHROID) 50 MCG Tablet Take 50 mcg by mouth daily first thing in the morning. (at least 30 min prior to breakfast or other meds) Active Magnesium Oxide 400 (240 Mg) MG Tablet Take 400 mg by mouth 2 times a day. Active metoprolol succinate XL (TOPROL XL) 100 MG TB24 Take 100 mg by mouth 2 times a day. Active pantoprazole (PROTONIX) 40 MG Pack Take 40 mg by mouth daily. Active Potassium Chloride (KLOR-CON) 20 MEQ packet Take 20 mEq by mouth daily. Active TraMADol HCl ER 100 MG TB24 Take 100 mg by mouth daily. Active traZODone (DESYREL) 50 MG Tablet Take 50 mg by mouth at bedtime. Active DilTIAZem HCl ER Coated Beads 120 MG TB24 Take 120 mg by mouth daily. 34 Tab 11 04/09/2017 Active as of this encounter Active Problems [...] Encounters Date Type Specialty Care Team Description 04/26/2017 Pharmacy Pharmacy [address] [place] [address] [phone] 07/29/2017 Office Visit Sleep Disorders Mindi Gonzales MD [address] [place] [address] Donald, Nurse Sleep Disorders [address] [place] [address] [place] [address] [phone] Health Maintenance Due Date Last Done Comments TETANUS EVERY 10 YRS-TDAP (BOOSTRIX/ADACEL) SUGGESTED IF NOT RECEIVED IN PAST 1978 COLONOSCOPY-EVERY 10 YRS AGE S 50-75 2010 DIABETES SCREEN EVERY 3 YRS- AGE 45 AND ABOVE 05/13/2013 05/13/2010, 05/13/2010, 01/17/2009, Additional history exists LIPID SCREEN EVERY 5 YRS-MEN AGE 35-75 05/13/2015 05/13/2010, 01/17/2009, 10/26/2007 Influenza Vaccine (FLU shot) (#1) 2017 *BASIC METABOLIC PANEL (BMP) FOR HTN YEARLY 04/11/2017 *DEPRESSION SCREENING, PAULINO Mccarthy FOR PTS 18 AND OVER 04/11/2017 *TSH FOR THYROID MEDICATION MONITORING YEARLY 04/11/2017 *URINE PROTEIN ONCE FOR HTN-DIPSTICK ACCEPTABLE 04/17/2017 as of this encounter Implants Not on fileas of this encounter Insurance Payer Benefit Plan / Group Subscriber ID Type Phone Address [employer] AARON CID [id number] 1 as of this encounter
--- OUTSIDE RECORDS SUMMARY | 2023-02-21 17:50 | External Medical Summary ---
Author Name Unknown Address Unknown Organization R:IT USE ONLY!!! Laboratory Report Ordering Provider Test Date Status [facility] 06/25/2017 07:59:00 Final Observation Date Value Abnormality Reference Status INR in Capillary blood by Coagulation assay 06/25/2017 08:36 1.5 Final Days in therapeutic INR range/Days INR result determined [Ratio] 06/25/2017 08:36 Final Performing Location IT USE ONLY!!!
--- OUTSIDE RECORDS SUMMARY | 2023-02-21 17:50 | External Medical Summary | Summary of Care ---
Author Name Unknown Organization [place] [address] Phone Care Team Providers Care Polysomnographer Name Role Phone Lanette Roman MD Primary Care Provider [phone] [phone] Reason for Visit * Reason Comments Dosage Adjustment In Person (Anticoag Cl inic) Encounter Details Date Type Department Care Team Description 06/03/2017 Pharmacy Pharmacy, [address] [place] [address] [place] [address] [phone] Chronic atrial fibrillation (HCC)*;Atrial fibrillation, unspecified type (HCC);Anticoagulation management encounter;extermination supervisor current use of anticoagulant therapy Allergies No Known Allergiesas of this encounter [...] 50 mg by mouth at bedtime. Active Magnesium Oxide 400 (240 Mg) MG TabletIndications: Atrial fibrillation (HCC) Take 1 Tab by mouth 2 times a day. 60 Tab 5 04/29/2017 Active metoprolol succinate XL (TOPROL XL) 100 MG TB24 Take 1 Tab by mouth 2 times a day. 64 Tab 11 05/05/2017 Active Potassium Chloride (KLOR-CON) 20 MEQ packet Take 20 mEq by mouth daily. 90 Packet 3 05/12/2017 Active DilTIAZem HCl ER Beads 240 MG [id number]:Ch ronic atrial fibrillation (HCC) Take 1 Cap by mouth daily. 90 Cap 3 05/12/2017 Active warfarin sodium (COUMADIN) 5 MG Tablet Take one tablet daily or as directed by anticoagulation pharmacist. 30 Tab 5 05/13/2017 Active as of this encounter Active Problems [...] of this encounter Progress Notes * Aric Bowen, [facility] - 06/03/2017 7:59 AM EST Formatting of this note may be different from the original. Medication Therapy Disease Management - Anticoagulation Oma Owens is an 57 year old male who presents to clinic for anticoagulation management and education. Current Anticoagulation Regimen: warfarin 5mg daily (10mg tabs) Anticoagulation Medication Adherence: Patient compliant Patient-Reported Symptoms: Bruising: no Bleeding: no Miscellaneous: no Interval Health and/or Dietary Status Changes: No significant health status or dietary changes noted today Stopped amiodarone 05/12 Patient denies eating liver or scrapple. Denies changes in OTC/herbals/nutritional drinks. Denies changes in alcohol or tobacco use. Most recent CBC: CBC/DIFF Harvey Dt/Tm Resulted Value Status WBC (K/uL) 05/13/10 8:26A 05/13/10 6.86 F RBC (M/uL) 05/13/10 8:26A 05/13/10 5.36* F HGB (g/dL) 05/13/10 8:26A 05/13/10 15.8 F HCT (%) 05/13/10 8:26A 05/13/10 45.2 F MCV (fL) 05/13/10 8:26A 05/13/10 84.3 F MCH (pg) 05/13/10 8:26A 05/13/10 29.5 F MCHC (g/dL) 05/13/10 8:A 05/13/10 35.0 F RDW (%) 05/13/10 8:26A 05/13/10 13.2 F PLATELET COUNT (K/uL) 05/13/10 8:26A 05/13/10 182 F MPV (fL) 05/13/10 8:A 05/13/10 8.1 F DIFF TYPE (no units) 05/13/10 8:A 05/13/10 AUTO F SEGS (%) 05/13/10 8:A 05/13/10 60 F LYMPHS (%) 05/13/10 8:A 05/13/10 31 F MONOS (%) 05/13/10 8:26A 05/13/10 6 F EOS (%) 05/13/10 8:26A 05/13/10 3 F ABS. SEGS (K/uL) 05/13/10 8:26A 05/13/10 4.11 F ABS. LYMPHS (K/uL) 05/13/10 8:26A 05/13/10 2.13 F ABS. MONOS (K/uL) 05/13/10 8:26A 05/13/10 0.41 F ABS. EOS (K/uL) 05/13/10 8:26A 05/13/10 0.21 F INR: 1.8 Target range: 2.0-3.0 Intervention: Medication Adjustment: anticoagulation medication regimen adjusted as noted below. Recommendations: Take 10mg today, then resume the current dose of warfarin 5mg daily (5mg tabs) Follow-up: Patient to repeat PT/INR in 3 week(s). Patient is aware to contact clinic prior to the next scheduled follow-up with any questions, concerns, or any changes in health status. Aric Bowen [facility] Clinical Pharmacist Medication Therapy Disease Management 06/03/2017, 7:59 AM in this encounter Plan of Treatment Upcoming Encounters Date Type Specialty Care Team Description 06/25/2017 Pharmacy Pharmacy [address] [place] [address] [phone] 07/20/2017 Office Visit Cardiology Kadeem Frey DO 132 [place] [address] [phone] 07/29/2017 Office Visit Sleep Disorders Mindi Gonzales MD [address] [place] [address] Donald, Nurse Sleep Disorders [address] [place] [address] [phone] Health Maintenance Due Date Last Done Comments [...] on fileas of this encounter Results * INR FINGERSTICK (06/03/2017 8:02 AM) Component Value Ref Range FINGERSTICK INR 1.8 INR THERAPEUTIC RANGE Comment: Therapeutic ranges for non-operative patients: Prophylaxsis/treatment of DVT: (Range:2.0-3.0) Treatment of pulmonary embolism:(Range:2.0-3.0) Prevention of systemic embolism from: -tissue heart valves -acute myocardial infarction -valvular heart disease -atrial fibrillation (Range: 2.0-3.0) Mechanical prosthetic valves: (Range: 2.5-3.5) Specimen Performing Laborator y [facility] [address] [place] [address] in this encounter Visit Diagnoses Diagnosis Chronic atrial fibrillation (HCC) - Primary Atrial fibrillation Atrial fibrillation, unspeci fied type (HCC) Anticoagulation management e ncounter Encounter for therapeutic drug monitoring extermination supervisor current use of ant icoagulant therapy in this encounter Insurance Payer Benefit Plan / Group Subscriber ID Type Phone Address [employer] AARON CID [id number] 1 as of this encounter
--- OUTSIDE RECORDS SUMMARY | 2023-02-21 17:50 | External Medical Summary | Summary of Care ---
Author Name Unknown Organization [place] [address] Phone Care Team Providers Care Photocomposing Machine Operator Name Role Phone Lanette Roman MD Primary Care Provider [phone] Reason for Visit * Reason Comments MEDICATION REFILL Encounter Details Date Type Department Care Team Description 10/14/2017 Refill Cardiology, [facility] 132 [facility] [place] [address] Kadeem Frey, 132 [facility] [place] [address] [phone] Atrial fibrillation (HCC) Allergies No Known Allergiesas [...] Active DilTIAZem HCl ER Beads 240 MG [id number]:C hronic atrial fibrillation (HCC) Take 1 Cap [...] a day. 60 Tab 5 10/14/2017 Active Magnesium Oxide 400 (240 Mg) MG TabletIndications :Atrial fibrillation (HCC) Take 1 Tab by mouth 2 times a day. 60 Tab 5 04/29/2017 10/15/19 18 Discontinued as of this encounter Active [...] Telephone Encounter - Kadeem Frey DO - 10/14/2017 11:22 AM EDT Signed Prescriptions: Disp Refills Magnesium Oxide 400 (240 Mg) MG Tablet 60 Tab 5 Sig: Take 1 Tab by mouth 2 times a day. Authorizing Provider: KADEEM FREY * Telephone Encounter - Radha Loja LPN - 10/14/2017 11:17 AM EDT Formatting of this note may be different from the original. Pending Prescriptions: Disp Refills Magnesium Oxide 400 (240 Mg) MG Tablet 60 Tab 5 Sig: Take 1 Tab by mouth 2 times a day. Last Office Visit: 05/12/2017 Next Office Visit: 02/17/[address] Frey Last medication order date: 04/29/2017 Patient Active Problem List Diagnosis Code Atrial fibrillation (HCC) I48.91 HTN, goal below 140/90 I10 Obesity, morbid (more than 100 lbs over ideal weight or BMI > 40) ([facility]) E66.01 Hypothyroidism E03.9 Labs: CREATININE(mg/dL) Harvey Dt/Tm Resulted Value Status 05/13/10 8:05/13/10 0.9 FINAL POTASSIUM(mmol/L) Harvey Dt/Tm Resulted Value Status 05/13/10 8:05/13/10 4.1 FINAL TSH(uIU/mL) Harvey Dt/Tm Resulted Value Status 10/26/07 8:05A 10/26/07 3.41 FINAL LDL (CALCULATED)(mg/dL) Harvey Dt/Tm Resulted Value Status 05/13/10 8:A 05/13/10 134* FINAL 01/17/09 9:31A 01/17/09 140* FINAL ALT(U/L) Harvey Dt/Tm Resulted Value Status 05/13/10 8:05/13/10 16 FINAL Hemoglobin AIC Results: HEMOGLOBIN, A1C(%) Harvey Dt/Tm Resulted Value Status 05/13/10 8:26A 05/13/10 5.2 FINAL 10/26/07 8:05A 10/26/07 5.6 FINAL in this encounter Plan of Treatment Upcoming Encounters Date Type Specialty Care Team Description 10/19/2017 Pharmacy Pharmacy [address] [place] [address] [phone] 10/21/2017 Office Visit Sleep Disorders Mindi Gonzales MD [address] [place] [address] [phone] Donald, Nurse Sleep Disorders [address] [place] [address] [phone] 02/17/2018 Office Visit Cardiology Kadeem Frey DO [address] [place] [address] [phone] Health Maintenance Due Date Last Done Comments [...] fibrillation (HCC) Atrial fibrillation in this encounter Insurance Payer Benefit Plan / Group Subscriber ID Type Phone Address [employer] AARON [id number] 1 as of this encounter
--- OUTSIDE RECORDS SUMMARY | 2023-02-21 17:50 | External Medical Summary | Summary of Care ---
Author Name Unknown Organization [place] [address] Phone Care Team Providers Care Production Superintendent Hydro Name Role Phone Lanette Roman MD Primary Care Provider [phone] [phone] Reason for Visit * Reason Comments APPOINTMENT Encounter Details Date Type Department Care Team Description 07/30/2017 Pharmacy Pharmacy, [address] [place] [id number] [place] [id number] Chronic atrial fibrillation (HCC)* Allergies No Known [...] Active DilTIAZem HCl ER Beads 240 MG [id number]:Ch ronic atrial fibrillation (HCC) Take 1 Cap [...] as of this encounter Progress Notes * Mariluz Kumari [facility] - 07/30/2017 10:50 AM EST Agree with plan as documented. Follow up scheduled and verified via [facility] for 08/04. Mariluz Kumari, PharmD, [facility] Clinical Pharmacist 07/30/2017, 10:50 AM * Vesta Rojas, [facility] - 07/30/2017 10:44 AM EST Called patient and left message asking him to go to lab on 08/03 after Cards appointment or call us if he wishes a fingerstick that day after appointment. Will check for INR results on 08/04 if he does not call us back. in this encounter Plan of Treatment Upcoming Encounters Date Type Specialty Care Team Description 07/30/[address] [place] [address] [phone] Chronic atrial fibrillation (HCC)* 08/03/2017 Office Visit Cardiology Kadeem Frey, [address] [place] [address] [phone] 08/04/[address] [place] [address] [phone] 10/21/2017 Office Visit Sleep Disorders Mindi Gonzales MD [address] [place] [address] [place] [address] [phone] Donald, Nurse Sleep Disorders [facility] [place] [id number] Health Maintenance Due Date Last Done Comments DTaP,Tdap,and Td Vaccines (1 - Tdap) 1967 DIABETES SCREEN EVERY 3 YRS- AGE 45 [...] YEARS; FOBT 1 YEAR),AGES 50-75 07/18/2017 10/27/2007 as of this encounter Implants Not on fileas of this encounter Visit Diagnoses Diagnosis Chronic atrial fibrillation (HCC) - Primary Atrial fibrillation in this encounter Insurance Payer Benefit Plan / Group Subscriber ID Type Phone Address [employer] AARON CID [id number] 1 as of this encounter
--- OUTSIDE RECORDS SUMMARY | 2023-02-21 17:50 | External Medical Summary | Summary of Care ---
Author Name Unknown Organization [place] [address] Phone Care Team Providers Care Group Burner Machine Name Role Phone Lanette Roman MD Primary Care Provider [phone] -[phone] Reason for Visit * Reason Comments APPOINTMENT Encounter Details Date Type Department Care Team Description 09/27/2017 Pharmacy Pharmacy, [address] [place] [id number] [address] [place] [id number] Chronic atrial fibrillation (HCC)* Allergies No Known [...] Active DilTIAZem HCl ER Beads 240 MG [id number]:Chr onic atrial fibrillation (HCC) Take 1 Cap [...] as of this encounter Progress Notes * Chikis Morel [facility] - 09/27/2017 12:23 PM EDT Agree with plan as documented. Chikis Morel, PharmD Clinical Pharmacist 09/27/2017, 12:23 PM * Vesta Rojas [facility] - 09/27/2017 12:10 PM EDT Called patient and left a message in voice mail. Last INR was in June. I asked him to please call us to let us know why he has not been able to have his INR drawn for us and emphasized there is risk if dosing is not properly done. Sent patient a no show letter on 09/03/17. Follow up in about a week if no response or appointment made. in this encounter Plan of Treatment Upcoming Encounters Date Type Specialty Care Team Description 09/27/2017 Pharmacy Pharmacy [address] [place] [address] [phone] Chronic atrial fibrillation (HCC)* 10/05/2017 Pharmacy Pharmacy [address] [place] [address] [phone] 10/21/2017 Office Visit Sleep Disorders Mindi Gonzales MD [address] [place] [address] [place] [address] Donald, Nurse Sleep Disorders 132 [place] [address] [phone] 02/17/2018 Office Visit Cardiology Kadeem Frey, 132 [place] [address] [phone] Health Maintenance Due Date Last Done Comments [...] / Group Subscriber ID Type Phone Address [employer] AARON CID [id number] 1 as of this encounter
--- OUTSIDE RECORDS SUMMARY | 2023-02-21 17:50 | External Medical Summary | Summary of Care ---
Author Name Unknown Organization [place] [address] Phone Care Team Providers Care Call Center Coordinator Name Role Phone Lanette Roman MD Primary Care Provider [phone] [phone] Reason for Visit * Reason Comments Encounter Created in Error error Encounter Details Date Type Department Care Team Description 10/14/2017 Refill Cardiology, [facility] 132 [facility] [place] [address] [facility]adeem Frey[facility] [place] [address] [phone] Allergies No Known Allergiesas of this encounter [...] Active DilTIAZem HCl ER Beads 240 MG [id number]:C hronic atrial fibrillation (HCC) Take 1 Cap [...] Specialty Care Team Description 10/19/2017 Pharmacy Pharmacy [address] [place] [address] [phone] 10/21/2017 Office Visit Sleep Disorders Mindi Gonzales MD [address] [place] [address] [phone] Donald, Nurse Sleep Disorders 132 [place] [address] [phone] 02/17/2018 Office Visit Cardiology Kadeem Frey DO 132 [place] [address] [phone] Health Maintenance Due Date Last Done Comments [...] / Group Subscriber ID Type Phone Address [employer] AARON CID [id number] 1 as of this encounter
--- OUTSIDE RECORDS SUMMARY | 2023-02-21 17:50 | External Medical Summary | Summary of Care ---
Author Name Unknown Organization [place] [address] Phone Care Team Providers Care Defense Travel Administrator Name Role Phone Lanette Roman MD Primary Care Provider [phone] [phone] Reason for Visit * Reason Comments HOSPITAL FOLLOW-UP Encounter Details Date Type Department Care Team Description 04/27/2017 Telephone Cardiology, [facility] 132 [facility] [place] [address] Kadeem Frey, 132 [facility] [place] [address] [phone] HOSPITAL FOLLOW-UP Allergies No Known Allergiesas of this encounter Medications Prescription Sig. Disp. Refills Start Date End Date Status warfarin sodium (COUMADIN) 10 MG Tablet Take as directed by anticoagulation pharmacist. 30 Tab 5 04/05/2017 Active escitalopram (LEXAPRO) 10 MG Tablet Take 10 mg by mouth daily. Active furosemide (LASIX) 40 MG Tablet Take 40 mg by mouth daily. Active levothyroxine (SYNTHROID) 50 MCG Tablet Take 50 mcg by mouth daily first thing in the morning. (at least 30 min prior to breakfast or other meds) Active metoprolol succinate XL (TOPROL XL) 100 [...] mouth daily. 34 Tab 11 04/09/2017 Active amiodarone (CORDARONE) 200 MG TabletIndications :Atrial fibrillation (HCC) Take 1 Tab by mouth 2 times a day. 60 Tab 5 04/29/2017 Active Magnesium Oxide 400 (240 Mg) MG TabletIndications :Atrial fibrillation (HCC) Take 1 Tab by mouth 2 times a day. 60 Tab 5 04/29/2017 Active amiodarone (CORDARONE) 200 MG Tablet Take 200 mg by mouth 2 times a day. 04/28/20 17 Discontinued Magnesium Oxide 400 (240 Mg) MG Tablet Take 400 mg by mouth 2 times a day. 04/28/20 17 Discontinued as of this encounter Active Problems [...] Encounters Date Type Specialty Care Team Description 05/03/[address] [place] [address] [phone] 05/12/2017 Office Visit Cardiology Kadeem Frey DO 132 [place] [address] [phone] 07/29/2017 Office Visit Sleep Disorders Mindi Gonzales MD [address] [place] [address] [phone] Donald, Nurse Sleep Disorders 132 [place] [address] [phone] Health Maintenance Due Date Last Done Comments [...] on fileas of this encounter Results * CARDIOLOGY SCANNED RESULT (04/27/2017) in this encounter Visit Diagnoses Diagnosis Atrial fibrillation (HCC) - Primary Atrial fibrillation in this encounter Insurance Payer Benefit Plan / Group Subscriber ID Type Phone Address [employer] AARON CID [id number] 1 as of this encounter
--- OUTSIDE RECORDS SUMMARY | 2023-02-21 17:50 | External Medical Summary | Summary of Care ---
Author Name Unknown Organization [place] [address] Phone Care Team Providers Care Report Checker Name Role Phone Lanette Roman MD Primary Care Provider [phone] Reason for Visit * Reason Comments Encounter Created in Error Encounter Details Date Type Department Care Team Description 10/14/2017 Refill Cardiology, [facility] [address] [facility] [place] [address] Kadeem Frey, 132 [place] [address] [phone] Allergies No Known Allergiesas of this encounter [...] Active DilTIAZem HCl ER Beads 240 MG [id number]:C hronic atrial fibrillation (HCC) Take 1 Cap [...] Type Specialty Care Team Description 10/19/[address] [place] [address] [phone] 10/21/2017 Office Visit Sleep Disorders Mindi Gonzales MD [address] [place] [address] [phone] Donald, Nurse Sleep Disorders 132 [place] [address] [phone] 02/17/2018 Office Visit Cardiology Kadeem Frey DO 132 [place] [address] [phone] Health Maintenance Due Date Last Done Comments [...] / Group Subscriber ID Type Phone Address [employer] AARON CID [id number] 1 as of this encounter
--- OUTSIDE RECORDS SUMMARY | 2023-02-21 17:50 | External Medical Summary | Summary of Care ---
Author Name Unknown Organization [place] [address] Phone Care Team Providers Care Ticketer Name Role Phone Lanette Roman MD Primary Care Provider [phone] Reason for Referral * Precert (Routine) Status Reason Specialty Diagnoses / Procedures Referred By Contact Referred To Contact Pending Review Precert Sleep Disorders Diagnoses PHYLLIS (obstructive sleep apnea) Procedures SLEEP STUDY, W/ CPAP (TREATMENT SETTINGS) Kadeem Frey DO [address] [facility] [place] [address] Reason for Visit * Reason Comments APPOINTMENT auth monica wood 04/14 Encounter Details Date Type Department Care Team Description 04/14/2017 Telephone Cardiology, [facility] 132 [facility] [place] [address] Kadeem Frey, [address] [place] [address] [phone] APPOINTMENT (auth monica wood 04/14) Allergies No Known Allergiesas of this [...] Type Specialty Care Team Description 04/26/[address] [place] [address] [phone] 07/29/2017 Office Visit Sleep Disorders Mindi Gonzales MD [address] [place] [address] [place] [address] , Nurse Sleep Disorders 132 [facility] [place] [address] [phone] Scheduled Tests Name Priority Associated Diagnoses Order S chedule SLEEP STUDY, W/ CPAP (TREATMENT SETTINGS) Routine PHYLLIS (obstructive sleep apnea) Ordered: 04/22/2017 Health Maintenance Due Date Last Done Comments [...] sleep apnea (adult) (pediatric) in this encounter Insurance Payer Benefit Plan / Group Subscriber ID Type Phone Address [employer] AARON CID [id number] 1 as of this encounter
--- OUTSIDE RECORDS SUMMARY | 2023-02-21 17:50 | External Medical Summary | Summary of Care ---
Author Name Unknown Organization [place] [address] Phone Care Team Providers Care Race Steward Name Role Phone Lanette Roman MD Primary Care Provider [phone] Reason for Visit * Reason Comments FOLLOW UP Encounter Details Date Type Department Care Team Description 08/03/2017 Office Visit Cardiology [address] [address] Kadeem Frey, 132 [place] [address] Chronic atrial fibrillation (HCC)*;PHYLLIS (obstructive sleep apnea);Obesity, morbid (more than 100 lbs over ideal weight or BMI > 40) (HCC) Allergies No Known Allergiesas of this [...] 2 times a day. 60 Tab 5 7 Active metoprolol succinate XL (TOPROL XL) 100 MG TB24 Take 1 Tab by mouth 2 times a day. 64 Tab 11 7 Active DilTIAZem HCl ER Beads 240 MG [id number]:C hronic atrial fibrillation (HCC) Take 1 Cap by mouth daily. 90 Cap 3 7 Active warfarin sodium (COUMADIN) 5 MG Tablet Take one tablet daily or as directed by anticoagulation pharmacist. 30 Tab 5 7 Active furosemide (LASIX) 40 MG Tablet Take 1 Tab by mouth daily. 90 Tab 3 8 Active Potassium Chloride ER 20 MEQ TBCR Take 1 Tab by mouth daily. 90 Tab 3 8 Active furosemide (LASIX) 40 MG Tablet Take 40 mg by mouth daily. 08/03/19 18 Discontinued Potassium Chloride (KLOR-CON) 20 MEQ packet Take 20 mEq by mouth daily. 90 Packet 3 7 08/03/19 18 Discontinued as of this encounter Active Problems Problem Noted Date HTN, goal below 140/90 04/13/2017 Obesity, morbid (more than 100 lbs over ideal weight or BMI > 40) ([facility]) 04/13/2017 Hypothyroidism 04/13/2017 Atrial fibrillation ([facility]) 04/05/2017 as of this encounter Social History Tobacco Use Types Packs/Day Years Used Date Former Smoker Smokeless Tobacco: Never Used Tobacco Cessation:Counseling Given: No Alcohol Use Drinks/Week oz/Week Comments Yes rarely Sex Assigned at Date Recorded Not on file as of this encounter Last Filed Vital Signs Vital Sign Reading Time Taken Blood Pressure 124/66 08/03/2017 7:52 AM EST Pulse 96 08/03/2017 7:52 AM EST Temperature - - Respiratory Rate 20 08/03/2017 7:52 AM EST Oxygen Saturation - - Inhaled Oxygen Concentration - - Weight 205 kg (451 lb 14.4 oz) 08/03/19 18 7:52 AM EST Height - - Body Mass Index 68.71 08/03/2017 7:52 AM EST in this encounter Progress Notes * Kadeem Frey, DO - 08/03/2017 8:13 AM EST Formatting of this note may be different from the original. Indication: Follow-up visit for atrial fibrillation Subjective: This is a 57-year-old morbidly obese male with a history of atrial fibrillation. He hadbeen on amiodarone and warfarin and an elective cardioversion was attempted without success. At this point he has been taken off his amiodarone and continues with diltiazem, metoprolol and warfarin. He has also been evaluated for sleep apnea and according to the patient he has severe sleep apnea that will be treated soon. He has no other complaints today. Proximally 2 weeks ago however he did have an emergency department visit because he felt he was filling up with fluid. He was told at the emergency department to take an extra dose of Lasix for the next 2 days, which he did and he felt better . He is currently back to 40 mg of Lasix daily. Review of patient's allergies indicates: No Known Allergies Current Outpatient Prescriptions Medication Sig Dispense Refill DilTIAZem HCl ER Beads 240 MG CP24 Take 1 Cap by mouth daily. 90 Cap 3 escitalopram (LEXAPRO) 10 MG Tablet Take 10 mg by mouth daily. furosemide (LASIX) 40 MG Tablet Take 40 mg by mouth daily. levothyroxine (SYNTHROID) 50 MCG Tablet Take 50 mcg by mouth daily first thing in the morning. (at least 30 min prior to breakfast or other meds) Magnesium Oxide 400 (240 Mg) MG Tablet Take 1 Tab by mouth 2 times a day. 60 Tab 5 metoprolol succinate XL (TOPROL XL) 100 MG TB24 Take 1 Tab by mouth 2 times a day. 64 Tab 11 pantoprazole (PROTONIX) 40 MG Pack Take 40 mg by mouth daily. Potassium Chloride (KLOR-CON) 20 MEQ packet Take 20 mEq by mouth daily. 90 Packet 3 TraMADol HCl ER 100 MG TB24 Take 100 mg by mouth daily. traZODone (DESYREL) 50 MG Tablet Take 50 mg by mouth at bedtime. warfarin sodium (COUMADIN) 5 MG Tablet Take one tablet daily or as directed by anticoagulation pharmacist. 30 Tab 5 BP 124/66 | Pulse 96 | Resp 20 | Wt 451 lbs 14.4 oz (204.980kg) | BMI 68.71 kg/m | BSA 3.14 m General: no acute distress and stated age Head: normocephalic, no masses, lesions, tenderness or abnormalities Eyes: conjunctiva are pink and non-injected, sclera clear Neck: supple, no adenopathy, no bruits, normal jugular venous pulse, no hepatojugular reflux Chest: normal shape and normal respiratory effort Lungs: clear to auscultation and percussion Cardiac Exam: - irregular rate & rhythm, no murmurs gallops or rubs - normal S1, normal S2 Pulses: 2(+) throughout Abdomen: abdomen soft, non-tender, no abnormal masses and no hepatosplenomegaly Musculoskeletal: no gait disturbance, no joint inflammation, no deforming arthritis Extremities: no edema and no cyanosis Neuro: grossly normal exam Impression: 1. Chronic atrial fibrillation 2. Right bundle branch block 3. Morbid obesity 4. Hypertension 5. Sleep apnea Recommendations: The patient will continue with rate control and anticoagulation. The patient will take an additional dose of Lasix for 2 days when he feels he may be filling with fluid. He will return to the ER as needed. Currently he is clinically stable and will return in 6 months for follow-up. This chart was completed in part utilizing [employer] Voice Recognition Software. Grammatical errors, random word insertions, prounoun errors, and incomplete sentences are an occasional consequence of this system due to software limitations, ambient noise, and hardware issues. Any formal questions or concerns about the content, text, or information contained within the body of this dictation should be directly addressed to the provider for clarification. in this encounter Nursing Notes * Jesusita Chairez RN - 08/03/2017 7:54 AM EST Examination Room: 7 Name: Oma Owens Date of : (1960). Reason for Visit: Follow up Interim Hospitalization(s): No Problems/Concerns: States ongoing fatigue. Did see sleep medicine last week; CPAP study scheduled for next week. Chest Pain/SOB: Denies [facility] is a way you can talk to your provider online through e-mail. Would you like to sign up? I can activate it for you? DECLINES in this encounter Plan of Treatment Upcoming Encounters Date Type Specialty Care Team Description 08/04/2017 Pharmacy Pharmacy [address] [place] [address] 10/21/2017 Office Visit Sleep Disorders Mindi Gonzales MD [address] [place] [address] [place] [address] Donald, Nurse Sleep Disorders [address] [place] [address] [place] [address] 02/17/2018 Office Visit Cardiology Kadeem Frey, DO [address] [place] [address] [phone] Health Maintenance Due Date Last Done Comments [...] atrial fibrillation (HCC) - Primary Atrial fibrillation PHYLLIS (obstructive sleep apnea ) Obstructive sleep apnea (adult) (pediatric) Obesity, morbid (more than 1 00 lbs over ideal weight or BMI > 40) (HCC) Morbid obesity in this encounter Insurance Payer Benefit Plan / Group Subscriber ID Type Phone Address [employer] AARON CID [id number] 1 as of this encounter"
--- OUTSIDE RECORDS SUMMARY | 2023-02-21 17:50 | External Medical Summary | Summary of Care ---
Author Name Unknown Organization [place] [address] Phone Care Team Providers Care Box Folding Machine Operator Name Role Phone Lanette Roman MD Primary Care Provider [phone] Reason for Visit * Reason Comments Dosage Adjustment In Person (Anticoag Cl inic) Encounter Details Date Type Department Care Team Description 04/26/2017 Pharmacy Pharmacy, [address] [place] [address] [place] [address] [phone] Atrial fibrillation, unspecified type (HCC)*;Anticoagulation management encounter;keno terminal operator current use of anticoagulant therapy Allergies No [...] this encounter Progress Notes * Aric Bowen, [facility] - 04/26/2017 8:00 AM EST Formatting of this note may be different from the original. [facility] Anticoagulation Management Progress Note Name: Oma Owens Patient is a 57 year old male who presents to the [facility] for follow-up appointment for anticoagulation education and management. Current Anticoagulation Regimen: warfarin 10 mg ThSun, 5 mg all other days. (10mg tabs) . Anticoagulation Regimen Adherence: Patient compliant. Potential Adverse Drug Reactions to Medication(s): Unusual bruising: no Unusual bleeding: no Miscellaneous: no Medication Changes (including OTC and/or vitamins/supplements/herbs): None Diet/Activity Changes: No significant changes. Health Status/Co-Morbidity Changes: None. Any symptoms present today or patient specific questions/concerns that were not noted above and need to be addressed at visit: yes Amiodarone start approx 03/27 Plan is for cardioversion in near future- 04/27 at [facility].. Denies changes in OTC/herbals/nutritional drinks. Denies changes in alcohol. Any clinical circumstances from previous visit(s) that are not noted above, however necessitate today's appointment or more frequent monitoring in general: yes; weekly INRs indicated due to pre or post cardioversion protocol. Most recent CBC: CBC/DIFF Harvey Dt/Tm Resulted Value Status WBC (K/uL) 05/13/10 8:A 05/13/10 6.86 F RBC (M/uL) 05/13/10 8:A 05/13/10 5.36* F HGB (g/dL) 05/13/10 8:A 05/13/10 15.8 F HCT (%) 05/13/10 8:A 05/13/10 45.2 F MCV (fL) 05/13/10 8:A 05/13/10 84.3 F MCH (pg) 05/13/10 8:A 05/13/10 29.5 F MCHC (g/dL) 05/13/10 8:A 05/13/10 35.0 F RDW (%) 05/13/10 8:A 05/13/10 13.2 F PLATELET COUNT (K/uL) 05/13/10 8:A 05/13/10 182 F MPV (fL) 05/13/10 8:A 05/13/10 8.1 F DIFF TYPE (no units) 05/13/10 8:A 05/13/10 AUTO F SEGS (%) 05/13/10 8:A 05/13/10 60 F LYMPHS (%) 05/13/10 8:26A 05/13/10 31 F MONOS (%) 05/13/10 8:A 05/13/10 6 F EOS (%) 05/13/10 8:A 05/13/10 3 F ABS. SEGS (K/uL) 05/13/10 8:26A 05/13/10 4.11 F ABS. LYMPHS (K/uL) 05/13/10 8:A 05/13/10 2.13 F ABS. MONOS (K/uL) 05/13/10 8:A 05/13/10 0.41 F ABS. EOS (K/uL) 05/13/10 8:A 05/13/10 0.21 F INR: 6.4 Target range: 2.0-3.0 Intervention: Acute changes: Discussed with patient how acute changes to health status, activity level, tobacco usage and alcohol consumption can have an impact on PT/INR or anticoagulation regimen thus requiring more frequent monitoring and/or dosage adjustments. Vitamin K: Counseled patient on the importance of consistency and moderation with regards to dietary Vitamin Kintake, either through usual diet or consumption of dietary supplement. Discussed how significant fluctuations with regards to Vitamin K intake can complicate the management of their anticoagulation regimen, lead to medication dosage adjustments and more frequent monitoring. High INR: Counseled patient on the significance of INR elevation, the increased bleed risk associated with such, sign/symptoms of bleeding, and when to seek medical attention. Recommendations: Medication: Skip today, then decrease dose to 5 mg daily. Further workup: Not applicable . Follow-up: Patient to repeat PT/INR in 1 week(s). Patient to call clinic in the meantime with any questions, concerns, or any changes in status.3 minutes spent reviewing chart. 8 minutes spent counseling patient Monster Caceres PharmD Candidate 2018 Aric Bowen [facility] 04/26/2017 7:57 AM in this encounter Plan of Treatment Upcoming Encounters Date Type Specialty Care Team Description 05/03/[address] [place] [address] 07/29/2017 Office Visit Sleep Disorders Mindi Gonzales MD [address] [place] [address] Donald, Nurse Sleep Disorders [address] [place] [address] [place] [address] [phone] Health Maintenance Due Date Last Done Comments [...] of this encounter Results * INR FINGERSTICK (04/26/2017 8:05 AM) Component Value Ref Range FINGERSTICK INR 6.4 INR THERAPEUTIC RANGE Comment: Therapeutic ranges for non-operative patients: Prophylaxsis/treatment of DVT: (Range:2.0-3.0) Treatment of pulmonary embolism:(Range:2.0-3.0) Prevention of systemic embolism from: -tissue heart valves -acute myocardial infarction -valvular heart disease -atrial fibrillation (Range: 2.0-3.0) Mechanical prosthetic valves: (Range: 2.5-3.5) Specimen Performing Laborator y [facility] [address] [facility] [place] [address] in this encounter Visit Diagnoses Diagnosis Atrial fibrillation, unspeci fied type (HCC) - Primary Anticoagulation management e ncounter Encounter for therapeutic drug monitoring keno terminal operator current use of ant icoagulant therapy in this encounter Insurance Payer Benefit Plan / Group Subscriber ID Type Phone Address [employer] AARON CID [id number] 1 as of this encounter
--- OUTSIDE RECORDS SUMMARY | 2023-02-21 17:50 | External Medical Summary | Summary of Care ---
Author Name Unknown Organization [place] [address] Phone Care Team Providers Care Loin Puller Name Role Phone Lanette Roman MD Primary Care Provider [phone] Reason for Visit * Reason Comments Information medication/amiodaron e clarification from pt Encounter Details Date Type Department Care Team Description 10/14/2017 Telephone Cardiology, [facility] 132 [facility] [place] [address] Kadeem Frey, 132 [facility] [place] [address] [phone] Information (medication/amiodarone clarifi... Allergies No Known Allergiesas of this encounter [...] Active DilTIAZem HCl ER Beads 240 MG [id number]:Chr onic atrial fibrillation (HCC) Take 1 Cap [...] encounter Miscellaneous Notes * Telephone Encounter - Radha Loja LPN - 10/15/2017 11:32 AM EDT Second attempt by phone LMOM * Telephone Encounter - Radha Loja LPN - 10/14/2017 11:30 AM EDT Pharmacy refill request for amiodarone 200mg BID received today. 05/12/2017 office visit note showspt was to stop medication. Spoke with pharmacy, pharm records show pt has been refilling/picking up medication monthly since April 2017. Call to pt, left detailed message on secure voice mail asking pt to call clinic to confirm if he isor is not taking amiodarone. Please advise if pt requires any follow up prior to next appt 02/2018 in [facility] in this encounter Plan of Treatment Upcoming Encounters Date Type Specialty Care Team Description 10/19/2017 Pharmacy Pharmacy [address] [place] [address] 10/21/2017 Office Visit Sleep Disorders Mindi Gonzales MD [address] [place] [address] Gw, Nurse Sleep Disorders 132 [place] [address] [phone] 02/17/2018 Office Visit Cardiology Kadeem Frey, 132 [place] [address] [phone] Health Maintenance Due Date Last Done Comments [...]
--- OUTSIDE RECORDS SUMMARY | 2023-02-21 17:50 | External Medical Summary | Summary of Care ---
Author Name Unknown Organization [place] [address] Phone Care Team Providers Care Meat And Poultry Inspector Name Role Phone Lanette Roman MD Primary Care Provider [phone] Reason for Visit * Reason Comments NO SHOW Encounter Details Date Type Department Care Team Description 09/10/2017 Pharmacy Pharmacy, [address] [place] [id number] [address] [place] [id number] Chronic atrial fibrillation (HCC)* Allergies No Known [...] Active DilTIAZem HCl ER Beads 240 MG [id number]:Chr onic atrial fibrillation (HCC) Take 1 Cap [...] this encounter Progress Notes * Chikis Morel [facility] - 09/10/2017 12:35 PM EDT Agree with plan as documented. Chikis Morel, PharmD Clinical Pharmacist 09/10/2017, 12:35 PM * Vesta Rojas PHYLLIS - 09/10/2017 12:24 PM EDT Called patient and the voice mail box is full. Sent patient a no show letter on 09/03/17. Follow up in about a week if no response or appointment made. in this encounter Plan of Treatment Upcoming Encounters Date Type Specialty Care Team Description 09/10/2017 Pharmacy Pharmacy [address] [place] [address] [phone] Chronic atrial fibrillation (HCC)* 09/20/2017 Pharmacy Pharmacy [address] [place] [address] [phone] 10/21/2017 Office Visit Sleep Disorders Mindi Gonzales MD [address] [place] [address] [place] [address] Donald, Nurse Sleep Disorders 132 [facility] [place] [address] [phone] 02/17/2018 Office Visit Cardiology Kadeem Frey, DO [address] [place] [place] [address] [phone] Health Maintenance Due Date Last Done Comments [...] / Group Subscriber ID Type Phone Address [employer] AARON CID [id number] 1 as of this encounter
--- OUTSIDE RECORDS SUMMARY | 2023-02-21 17:50 | External Medical Summary ---
Author Name Unknown Address Unknown Organization R:IT USE ONLY!!! Laboratory Report Ordering Provider Test Date Status [facility] 06/03/2017 08:02:00 Final Observation Date Value Abnormality Reference Status INR in Capillary blood by Coagulation assay 06/03/2017 08:04 1.8 Final Days in therapeutic INR range/Days INR result determined [Ratio] 06/03/2017 08:04 Final Performing Location IT USE ONLY!!!
--- OUTSIDE RECORDS SUMMARY | 2023-02-21 17:50 | External Medical Summary ---
Author Name Unknown Address Unknown Organization : Laboratory Report Ordering Provider Test Date Status [facility] 05/13/2017 08:08:00 Final Observation Date Value Abnormality Reference Status INR in Capillary blood by Coagulation assay 05/13/2017 08:15 2.2 Final Days in therapeutic INR range/Days INR result determined [Ratio] 05/13/2017 08:15 Final Performing Location
--- OUTSIDE RECORDS SUMMARY | 2023-02-21 17:50 | External Medical Summary ---
Author Name Unknown Address Unknown Organization : Laboratory Report Ordering Provider Test Date Status [facility] 05/03/2017 08:18:00 Final Observation Date Value Abnormality Reference Status INR in Capillary blood by Coagulation assay 05/03/2017 08:20 3.4 Final Days in therapeutic INR range/Days INR result determined [Ratio] 05/03/2017 08:20 Final Performing Location
--- OUTSIDE RECORDS SUMMARY | 2023-02-21 17:50 | External Medical Summary | Summary of Care ---
Author Name Unknown Organization [place] [address] Phone Care Team Providers Care Funeral Home Location Manager Name Role Phone Lanette Roman MD Primary Care Provider [phone] [phone] Reason for Visit * Reason Comments Dosage Adjustment In Person (Anticoag Cl inic) Encounter Details Date Type Department Care Team Description 05/03/2017 Pharmacy Pharmacy, [address] [place] [address] [place] [address] [phone] Atrial fibrillation, unspecified type (HCC)*;Anticoagulation management encounter;intermediate project manager current use of anticoagulant therapy Allergies No [...] 11 04/09/2017 Active amiodarone (CORDARONE) 200 MG TabletIndications:A trial fibrillation (HCC) Take 1 Tab by mouth 2 times a day. 60 Tab 5 04/29/2017 Active Magnesium Oxide 400 (240 Mg) MG TabletIndications:A trial fibrillation (HCC) Take 1 Tab by mouth 2 times a day. 60 Tab 5 04/29/2017 Active as of this encounter Active Problems Problem Noted Date HTN, goal below 140/90 04/13/2017 Obesity, morbid (more than 100 lbs over ideal weight or BMI > 40) (HCC) 04/13/2017 Hypothyroidism 04/13/2017 Atrial fibrillation ([facility]) 04/05/2017 as of this encounter Social History Tobacco Use Types Packs/Day Years Used Date Former Smoker Smokeless Tobacco: Never Used Alcohol Use Drinks/Week oz/Week Comments Yes rarely Sex Assigned at Date Recorded Not on file as of this encounter Progress Notes * Aric Bowen, [facility] - 05/03/2017 8:15 AM EST Formatting of this note may be different from the original. [facility] Anticoagulation Management Progress Note Name: Oma Owens Patient is a 57 year old male who presents to the [facility] for follow-up appointment for anticoagulation education and management. Current Anticoagulation Regimen: warfarin 5mg daily (10mg tabs). Anticoagulation Regimen Adherence: Compliant Potential Adverse Drug Reactions to Medication(s): Unusual bruising: no Unusual bleeding: no Miscellaneous: no Medication Changes (including OTC and/or vitamins/supplements/herbs): None Diet/Activity Changes: No significant changes. Health Status/Co-Morbidity Changes: No significant changes. Any symptoms present today or patient specific questions/concerns that were not noted above and need to be addressed at visit: Sleep study tomorrow. 05/12 Lc hogan to evaluate future plan. Any clinical circumstances from previous visit(s) that are not noted above, however necessitate today's appointment or more frequent monitoring in general: yes; INR previously above target goal. Most recent CBC: CBC/DIFF Harvey Dt/Tm Resulted [...] 8:A 05/13/10 31 F MONOS (%) 05/13/10 8:A 05/13/10 6 F EOS (%) 05/13/10 8:A 05/13/10 3 F ABS. SEGS (K/uL) 05/13/10 8:A 05/13/10 4.11 F ABS. LYMPHS (K/uL) 05/13/10 8:A 05/13/10 2.13 F ABS. MONOS (K/uL) 05/13/10 8:A 05/13/10 0.41 F ABS. EOS (K/uL) 05/13/10 8:A 05/13/10 0.21 F INR: 3.4 Target range: 2.0-3.0 Intervention: Communication: Reinforced with patient the importance of communicating any medication/diet/health status changes, recent hospitalizations, or upcoming procedures so Anticoagulation Clinic can manage the medication therapy safely and appropriately. High INR: Counseled patient on the significance of INR elevation, the increased bleed risk associated with such, sign/symptoms of bleeding, and when to seek medical attention. Recommendations: Medication: Skip today, then resume the current dose of warfarin 5mg daily (10mg tabs). Further workup: Not applicable . Follow-up: Patient to repeat PT/INR in 2 week(s). Patient to call clinic in the meantime with any questions, concerns, or any changes in status. 3 minutes spent reviewing chart. 8 minutes spent counseling patient Monster Caceres PharmD Candidate 2018 Aric Bowen [facility] 05/03/2017 8:13 AM in this encounter Plan of Treatment Upcoming Encounters Date Type Specialty Care Team Description 05/12/2017 Office Visit Cardiology Kadeem Frey DO [address] [place] [address] [phone] 05/13/[address] [place] [address] [phone] 07/29/2017 Office Visit Sleep Disorders Mindi Gonzales MD [address] [place] [address] [place] [address] Donald, Nurse Sleep Disorders [address] [place] [address] Health Maintenance Due Date Last Done Comments [...] of this encounter Results * INR FINGERSTICK (05/03/2017 8:18 AM) Component Value Ref Range FINGERSTICK INR 3.4 INR THERAPEUTIC RANGE Comment: Therapeutic ranges for non-operative patients: Prophylaxsis/treatment of DVT: (Range:2.0-3.0) Treatment of pulmonary embolism:(Range:2.0-3.0) Prevention of systemic embolism from: -tissue heart valves -acute myocardial infarction -valvular heart disease -atrial fibrillation (Range: 2.0-3.0) Mechanical prosthetic valves: (Range: 2.5-3.5) Specimen Performing Laborator y [facility] [address] [facility] [place] [address] in this encounter Visit Diagnoses Diagnosis Atrial fibrillation, unspeci fied type (HCC) - Primary Anticoagulation management e ncounter Encounter for therapeutic drug monitoring FDC current use of ant icoagulant therapy in this encounter Insurance Payer Benefit Plan / Group Subscriber ID Type Phone Address [employer] AARON CID [id number] 1 as of this encounter
--- OUTSIDE RECORDS SUMMARY | 2023-02-21 17:50 | External Medical Summary | Summary of Care ---
Author Name Unknown Organization [place] [address] Phone Care Team Providers Care Merchant Mill Utility Worker Name Role Phone Lanette Roman MD Primary Care Provider [phone] Reason for Visit * Reason Comments NO SHOW Encounter Details Date Type Department Care Team Description 10/05/2017 Pharmacy Pharmacy, [address] [place] [id number] [place] [id number] Chronic atrial fibrillation (HCC)* Allergies No Known [...] Active DilTIAZem HCl ER Beads 240 MG [id number]:Chr onic atrial fibrillation (HCC) Take 1 Cap [...] this encounter Progress Notes * Aric Bowen RPh - 10/05/2017 11:00 AM EDT Agree with plan as documented. Aric Bowen [facility] Clinical Pharmacist 10/05/2017, 11:00 AM * Vesta Rojas OSA - 10/05/2017 10:50 AM EDT Called patient and LM asking why he is not having his labs drawn for us, etc., and asked him to call us to let us know his situation. Last f/s on 06/25/17. Follow up in two weeks. in this encounter Plan of Treatment Upcoming Encounters Date Type Specialty Care Team Description 10/05/2017 Pharmacy Pharmacy [address] [place] [address] [phone] Chronic atrial fibrillation (HCC)* 10/19/2017 Pharmacy Pharmacy [address] [place] [address] [phone] 10/21/2017 Office Visit Sleep Disorders Mindi Gonzales MD [address] [place] [address] [place] [address] Donald, Nurse Sleep Disorders [address] [place] [address] [place] [address] 02/17/2018 Office Visit Cardiology Kadeem Frey, DO [address] [facility] [place] [address] [phone] Health Maintenance Due Date Last Done Comments [...] / Group Subscriber ID Type Phone Address [employer] AARON CID [id number] 1 as of this encounter
--- OUTSIDE RECORDS SUMMARY | 2023-02-21 17:50 | External Medical Summary | Summary of Care ---
Author Name Unknown Organization [place] [address] Phone Care Team Providers Care Professor Of Vegetable Science Name Role Phone Lanette Roman MD Primary Care Provider [phone] Reason for Visit * Reason Comments Dosage Adjustment In Person (Anticoag Cl inic) Encounter Details Date Type Department Care Team Description 04/20/2017 Pharmacy Pharmacy, [address] [place] [address] [place] [address] [phone] Atrial fibrillation, unspecified type (HCC)*;Anticoagulation management encounter;[facility] current use of anticoagulant therapy Allergies No [...] this encounter Progress Notes * Aric Bowen, formerly [facility] - 04/20/2017 8:00 AM EST Formatting of this note may be different from the original. [facility] Anticoagulation Management Progress Note Name: Oma Owens Patient is a 57 year old male who presents to the [facility] Management [facility] for follow-up appointment for anticoagulation education and management. Current Anticoagulation Regimen: warfarin 10mg F, 5mg Sa, 10mg Vargas, 5mg M (10mg tabs) . Anticoagulation Regimen Adherence: Patient [...] for cardioversion in near future- 04/27 at [facility]. Any clinical circumstances from previous visit(s) that are not noted above, however necessitate today's appointment or more frequent monitoring in general: no. Most recent CBC: CBC/DIFF Harvey Dt/Tm Resulted [...] manage the medication therapy safely and appropriately. Recommendations: Medication: Decrease dose to 10 mg ThSun, 5 mg all other days. Further workup: Not applicable . Follow-up: Patient to repeat PT/INR in 1 week(s). Patient to call clinic in the meantime with any questions, concerns, or any changes in status. 3 minutes spent reviewing chart. 8 minutes spent counseling patient Monster Caceres PharmD Candidate 2018 Aric Bowen [facility] 04/20/2017 7:56 AM in this encounter Plan of Treatment Upcoming Encounters Date Type Specialty Care Team Description 04/26/2017 Pharmacy Pharmacy [address] [place] [address] 07/29/2017 Office Visit Sleep Disorders Mindi Gonzales MD [address] [place] [address] Donald, Nurse Sleep Disorders [address] [place] [address] [place] [address] Health Maintenance Due Date Last Done [...] of this encounter Results * INR FINGERSTICK (04/20/2017 8:03 AM) Component Value Ref Range FINGERSTICK INR 3.4 INR THERAPEUTIC RANGE Comment: Therapeutic ranges for non-operative patients: Prophylaxsis/treatment of DVT: (Range:2.0-3.0) Treatment of pulmonary embolism:(Range:2.0-3.0) Prevention of systemic embolism from: -tissue heart valves -acute myocardial infarction -valvular heart disease -atrial fibrillation (Range: 2.0-3.0) Mechanical prosthetic valves: (Range: 2.5-3.5) Specimen Performing Laborator y [facility] [address] [place] [facility] [place] [address] in this encounter Visit Diagnoses Diagnosis Atrial fibrillation, unspeci fied type (HCC) - Primary Anticoagulation management e ncounter Encounter for therapeutic drug monitoring salvage determiner current use of ant icoagulant therapy in this encounter Insurance Payer Benefit Plan / Group Subscriber ID Type Phone Address [employer] AARON CID [id number] 1 as of this encounter
--- OUTSIDE RECORDS SUMMARY | 2023-02-21 17:50 | External Medical Summary | Summary of Care ---
Author Name Unknown Organization [place] [address] Phone Care Team Providers Care Rolled Glass Crosscutter Name Role Phone Lanette Roman MD Primary Care Provider [phone] [phone] Encounter Details Date Type Department Care Team Description 08/12/2017 Orders Only Pulmonary Medicine, [facility] 132 [facility] [place] [address] Mindi Gonzales MD [address] [place] [address] [place] [address] PHYLLIS (obstructive sleep apnea)* Allergies No Known Allergiesas of this encounter [...] Active DilTIAZem HCl ER Beads 240 MG [id number]:Chr onic atrial fibrillation (HCC) Take 1 Cap [...] Encounters Date Type Specialty Care Team Description 08/18/[address] [place] [address] [phone] 10/21/2017 Office Visit Sleep Disorders Mindi Gonzales MD [address] [place] [address] [place] [address] Donald, Nurse Sleep Disorders [address] [facility] [place] [address] [phone] 02/17/2018 Office Visit Cardiology Kadeem Frey DO [address] [place] [address] [phone] Health Maintenance Due Date Last Done Comments [...] / Group Subscriber ID Type Phone Address [employer] AARON CID [id number] 1 as of this encounter
--- OUTSIDE RECORDS SUMMARY | 2023-02-21 17:50 | External Medical Summary | Summary of Care ---
Author Name Unknown Organization [place] [address] Phone Care Team Providers Care Order Entry Clerk Name Role Phone Lanette Roman MD Primary Care Provider [phone] [phone] Reason for Visit * Reason Comments APPOINTMENT Encounter Details Date Type Department Care Team Description 08/18/2017 Pharmacy Pharmacy, [address] [place] [id number] [address] [place] [id number] Chronic atrial fibrillation (HCC)* Allergies No Known [...] Active DilTIAZem HCl ER Beads 240 MG [id number]:Chr onic atrial fibrillation (HCC) Take 1 Cap [...] Progress Notes * Aric Bowen RPh - 08/18/2017 3:17 PM EST Agree with plan as documented. Aric Bowen [facility] Clinical Pharmacist 08/18/2017, 3:17 PM * Vesta Rojas OSA - 08/18/2017 3:15 PM EST Patient has not had INR tested since 06/25/17. Called again today and left message for him. Will follow up in one week if no response from him. in this encounter Plan of Treatment Upcoming Encounters Date Type Specialty Care Team Description 08/18/2017 Pharmacy Pharmacy [address] [place] [address] [phone] Chronic atrial fibrillation (HCC)* 08/25/2017 Pharmacy Pharmacy [address] [place] [address] [phone] 10/21/2017 Office Visit Sleep Disorders Mindi Gonzales MD [address] [place] [address] [place] [address] Donald, Nurse Sleep Disorders [facility] [place] [address] 02/17/2018 Office Visit Cardiology Kadeem Frey DO [address] [place] [address] [phone] Health Maintenance Due Date Last Done Comments [...] / Group Subscriber ID Type Phone Address [employer] AARON CID [id number] 1 as of this encounter
--- OUTSIDE RECORDS SUMMARY | 2023-02-21 17:50 | External Medical Summary | Summary of Care ---
Author Name Unknown Organization [place] [address] Phone Care Team Providers Care Fine Grader Name Role Phone Lanette Roman MD Primary Care Provider [phone] [phone] Reason for Visit * Reason Comments HOSPITAL FOLLOW-UP Encounter Details Date Type Department Care Team Description 05/12/2017 Office Visit Cardiology, [facility] [place] [address] Kadeem Frey, 132 [place] [address] [phone] Chronic atrial fibrillation (HCC)*;Obesity, morbid (more than 100 lbs over ideal weight or BMI > 40) (HCC) Allergies No Known Allergiesas of this encounter Medications Prescription Sig. Disp. Refills Start Date End Date Status warfarin sodium (COUMADIN) 10 MG Tablet Take as directed by anticoagulation pharmacist. 30 Tab 5 7 Active escitalopram (LEXAPRO) 10 MG Tablet Take [...] a day. 64 Tab 11 7 Active Potassium Chloride (KLOR-CON) 20 MEQ packet Take 20 mEq by mouth daily. 90 Packet 3 7 Active DilTIAZem HCl ER Beads 240 MG [id number]:C hronic atrial fibrillation (HCC) Take 1 Cap by mouth daily. 90 Cap 3 7 Active Potassium Chloride (KLOR-CON) 20 MEQ packet Take 20 mEq by mouth daily. 05/12/20 17 Discontinued DilTIAZem HCl ER Coated Beads 120 MG TB24 Take 120 mg by mouth daily. 34 Tab 11 7 05/12/20 17 Discontinued amiodarone (CORDARONE) 200 MG TabletIndications :Atrial fibrillation (HCC) Take 1 Tab by mouth 2 times a day. 60 Tab 5 7 05/12/20 17 Discontinued as of this encounter Active Problems Problem Noted Date HTN, goal below 140/90 04/13/2017 Obesity, morbid (more than 100 lbs over ideal weight or BMI > 40) ([facility]) 04/13/2017 Hypothyroidism 04/13/2017 Atrial fibrillation ([facility]) 04/05/2017 as of this encounter Social History Tobacco Use Types Packs/Day Years Used Date Former Smoker Smokeless Tobacco: Never Used Tobacco Cessation:Counseling Given: Yes Alcohol Use Drinks/Week oz/Week Comments Yes rarely Sex Assigned at Date Recorded Not on file as of this encounter Last Filed Vital Signs Vital Sign Reading Time Taken Blood Pressure 130/82 05/12/2017 10:06 AM EST Pulse 116 05/12/2017 10:06 AM EST Temperature - - Respiratory Rate 18 05/12/2017 10:0 6 AM EST Oxygen Saturation - - Inhaled Oxygen Concentration - - Weight 185.2 kg (408 lb 4.8 oz) 017 10:06 AM EST Height - - Body Mass Index - - in this encounter Progress Notes * Kadeem Frey, DO - 05/12/2017 10:00 AM EST Formatting of this note may be different from the original. Indication: Follow-up visit for atrial fibrillation Subjective: This is a 57-year-old morbidly obese male patient who has persistent atrial fibrillation and was loaded with amiodarone and started on warfarin. He then returned for an elective cardioversion. Unfortunately after several attempts he was not able to maintain sinus rhythm. At that point it was decided to treat him with rate control and anticoagulation. He returned today and has no new complaints. He recently had a sleep study for sleep apnea and is waiting for the results. Review of patient's allergies indicates: No Known Allergies Current Outpatient Prescriptions Medication Sig Dispense Refill Potassium Chloride (KLOR-CON) 20 MEQ packet Take 20 mEq by mouth daily. 90 Packet 3 DilTIAZem HCl ER Beads 240 MG CP24 Take 1 Cap by mouth daily. 90 Cap 3 metoprolol succinate XL (TOPROL XL) 100 MG TB24 Take 1 Tab by mouth 2 times a day. 64 Tab 11 Magnesium Oxide 400 (240 Mg) MG Tablet Take 1 Tab by mouth 2 times a day. 60 Tab 5 escitalopram (LEXAPRO) 10 MG Tablet Take 10 mg by mouth daily. furosemide (LASIX) 40 MG Tablet Take 40 mg by mouth daily. levothyroxine (SYNTHROID) 50 MCG Tablet Take 50 mcg by mouth daily first thing in the morning. (at least 30 min prior to breakfast or other meds) pantoprazole (PROTONIX) 40 MG Pack Take 40 mg by mouth daily. TraMADol HCl ER 100 MG TB24 Take 100 mg by mouth daily. traZODone (DESYREL) 50 MG Tablet Take 50 mg by mouth at bedtime. warfarin sodium (COUMADIN) 10 MG Tablet Take as directed by anticoagulation pharmacist. 30 Tab 5 BP 130/82 | Pulse 116 | Resp 18 | Wt 408 lbs 4.8 oz (185.204kg) General: no acute distress and stated age Head: normocephalic, no masses, lesions, tenderness or abnormalities Eyes: conjunctiva are pink and non-injected, sclera clear Neck: supple, no adenopathy, no bruits, normal jugular venous pulse, no hepatojugular reflux Chest: normal shape and normal respiratory effort Lungs: clear to auscultation and percussion Cardiac Exam: - regular rate & rhythm, no murmurs gallops or rubs - normal S1, normal S2 Pulses: 2(+) throughout Abdomen: abdomen soft, non-tender, no abnormal masses and no hepatosplenomegaly Musculoskeletal: no gait disturbance, no joint inflammation, no deforming arthritis Extremities: no edema and no cyanosis Neuro: grossly normal exam EKG reveals atrial fibrillation with right bundle branch block Impression: 1. Chronic atrial fibrillation 2. Right bundle branch block 3. Morbid obesity 4. Hypertension Recommendations: At this point I think it is best we stop his amiodarone. He will continue with metoprolol at 200 mg daily. I will increase his diltiazem to 240 mg daily as his heart rate remains slightly high today. All his other medications will remain the same. He has an appointment with [facility] tomorrow and he will notify them of our decision to stop the amiodarone. This chart was completed in part utilizing [employer] Speech Voice Recognition Software. Grammatical errors, random word insertions, prounoun errors, and incomplete sentences are an occasional consequence of this system due to software limitations, ambient noise, and hardware issues. Any formal questions or concerns about the content, text, or information contained within the body of this dictation should be directly addressed to the provider for clarification. in this encounter Plan of Treatment Upcoming Encounters Date Type Specialty Care Team Description 05/13/[address] [place] [address] [phone] 07/20/2017 Office Visit Cardiology Kadeem Frey, [address] [place] [address] 07/29/2017 Office Visit Sleep Disorders Mindi Gonzales MD [address] [place], [place] [address] [address] Gw, Nurse Sleep Disorders 132 [facility] [place] [address] [phone] Scheduled Tests Name Priority Associated Diagnoses Order S chedule EKG COMPLETE (TRACING AND INTERP) Routine Chronic atrial fibrillation (HCC) Ordered: 05/12/2017 Health Maintenance Due Date Last Done Comments [...] atrial fibrillation (HCC) - Primary Atrial fibrillation Obesity, morbid (more than 1 00 lbs over ideal weight or BMI > 40) (HCC) Morbid obesity in this encounter Insurance Payer Benefit Plan / Group Subscriber ID Type Phone Address [employer] AARON CID [id number] 1 as of this encounter"
--- OUTSIDE RECORDS SUMMARY | 2023-02-21 17:50 | External Medical Summary | Summary of Care ---
Author Name Unknown Organization [place] [address] Phone Care Team Providers Care Rice Milling Supervisor Name Role Phone Lanette Roman MD Primary Care Provider [phone] Reason for Visit * Reason Comments Dosage Adjustment In Person (Anticoag Cl inic) Encounter Details Date Type Department Care Team Description 06/25/2017 Pharmacy Pharmacy, [address] [place] [address] [place] [address] [phone] Chronic atrial fibrillation (HCC)*;Atrial fibrillation, unspecified type (HCC);Anticoagulation management encounter;[facility] current use of anticoagulant therapy Allergies No [...] Active DilTIAZem HCl ER Beads 240 MG [id number]:Ch ronic atrial fibrillation (HCC) Take 1 Cap [...] this encounter Progress Notes * Aric Bowen, [facility] - 06/25/2017 7:57 AM EST Formatting of this note may be different from the original. Medication Therapy Disease Management - Anticoagulation Oma Owens is an 57 year old male who presents to clinic for anticoagulation management and education. Current Anticoagulation Regimen: warfarin 5mg daily (5mg tabs) Anticoagulation Medication Adherence: Patient compliant Patient-Reported Symptoms: Bruising: no Bleeding: no Miscellaneous: no Interval Health and/or Dietary Status Changes: Previous PT/INR significantly below goal goal, necessitating closer follow-up today Stopped amiodarone 05/12 Patient denies eating liver or scrapple. Denies changes in OTC/herbals/nutritional drinks. Denies changes in alcohol or tobacco use. Most recent CBC: CBC/DIFF Harvey Dt/Tm Resulted Value Status WBC (K/uL) 05/13/10 8:26A 05/13/10 6.86 F RBC (M/uL) 05/13/10 8:26A 05/13/10 5.36* F HGB (g/dL) 05/13/10 8:26A 05/13/10 15.8 F HCT (%) 05/13/10 8:A 05/13/10 45.2 F MCV (fL) 05/13/10 8:26A [...] 8:26A 05/13/10 31 F MONOS (%) 05/13/10 8:26A 05/13/10 6 F EOS (%) 05/13/10 8:A 05/13/10 3 F ABS. SEGS (K/uL) 05/13/10 8:26A 05/13/10 4.11 F ABS. LYMPHS (K/uL) 05/13/10 8:26A 05/13/10 2.13 F ABS. MONOS (K/uL) 05/13/10 8:A 05/13/10 0.41 F ABS. EOS (K/uL) 05/13/10 8:A 05/13/10 0.21 F INR: 1.5 Target range: 2.0-3.0 Recommendations: Take 10mg today, then increase dose to 7.5mg MF, 5mg all other days (5mg tabs) Follow-up: Patient to repeat PT/INR in 4 week(s). Aric Bowen [facility] Clinical Pharmacist 06/25/2017, 7:57 AM in this encounter Plan of Treatment Upcoming Encounters Date Type Specialty Care Team Description 07/23/[address] [place] [address] [phone] 07/29/2017 Office Visit Sleep Disorders Mindi Gonzales MD [address] [facility] [address] [place] [address] [phone] Gw, Nurse Sleep Disorders [address] [place] [address] [phone] 08/03/2017 Office Visit Cardiology Kadeem Frey, [address] [place] [address] [phone] Health Maintenance Due Date Last Done Comments [...] of this encounter Results * INR FINGERSTICK (06/25/2017 7:59 AM) Component Value Ref Range FINGERSTICK INR 1.5 INR THERAPEUTIC RANGE Comment: Therapeutic ranges for non-operative patients: Prophylaxsis/treatment of DVT: (Range:2.0-3.0) Treatment of pulmonary embolism:(Range:2.0-3.0) Prevention of systemic embolism from: -tissue heart valves -acute myocardial infarction -valvular heart disease -atrial fibrillation (Range: 2.0-3.0) Mechanical prosthetic valves: (Range: 2.5-3.5) Specimen Performing Laborator y [facility] [address] [place] [address] in this encounter Visit Diagnoses Diagnosis Chronic atrial fibrillation (HCC) - Primary Atrial fibrillation Atrial fibrillation, unspeci fied type (HCC) Anticoagulation management e ncounter Encounter for therapeutic drug monitoring [facility] current use of ant icoagulant therapy in this encounter Insurance Payer Benefit Plan / Group Subscriber ID Type Phone Address [employer] AARON CID [id number] 1 as of this encounter
--- OUTSIDE RECORDS SUMMARY | 2023-02-21 17:50 | External Medical Summary | Summary of Care ---
Author Name Unknown Organization [place] [address] Phone Care Team Providers Care Inductor Tester Name Role Phone Lanette Roman MD Primary Care Provider [phone] Reason for Visit * Reason Comments APPOINTMENT Encounter Details Date Type Department Care Team Description 09/03/2017 Pharmacy Pharmacy, [address] [place] [id number] [address] [place] [id number] Chronic atrial fibrillation (HCC)* Allergies No Known [...] Active DilTIAZem HCl ER Beads 240 MG [id number]:Chr onic atrial fibrillation (HCC) Take 1 Cap [...] Progress Notes * Aric Bowen RPh - 09/03/2017 10:57 AM EDT Agree with plan as documented. Aric Bowen [facility] Clinical Pharmacist 09/03/2017, 10:57 AM * Sandi Rodriguez, [facility] - 09/03/2017 10:56 AM EDT Patients voice mail is full,sending out missed protime letter to patient,follow- up in 1 week to schedule. in this encounter Plan of Treatment Upcoming Encounters Date Type Specialty Care Team Description 09/03/2017 Pharmacy Pharmacy [address] [place] [address] [phone] Chronic atrial fibrillation (HCC)* 10/21/2017 Office Visit Sleep Disorders Mindi Gonzales MD [address] [place] [address] [place] [address] Donald, Nurse Sleep Disorders [address] [place] [address] 02/17/2018 Office Visit Cardiology Kadeem Frey DO [address] [place] [address] [phone] Health Maintenance Due Date Last Done Comments [...] / Group Subscriber ID Type Phone Address [employer] AARON CID [id number] 1 as of this encounter
--- OUTSIDE RECORDS SUMMARY | 2023-02-21 17:50 | External Medical Summary ---
Author Name Unknown Address Unknown Organization : Laboratory Report Ordering Provider Test Date Status [facility] 04/26/2017 08:05:00 Final Observation Date Value Abnormality Reference Status INR in Capillary blood by Coagulation assay 04/26/2017 10:37 6.4 Final Days in therapeutic INR range/Days INR result determined [Ratio] 04/26/2017 10:37 Final Performing Location
--- OUTSIDE RECORDS SUMMARY | 2023-02-21 17:50 | External Medical Summary | Summary of Care ---
Author Name Unknown Organization [place] [address] Phone Care Team Providers Care Spray Gun Repairer Helper Name Role Phone Lanette Roman MD Primary Care Provider [phone] Reason for Visit * Reason Comments Dosage Adjustment In Person (Anticoag Cl inic) Encounter Details Date Type Department Care Team Description 05/13/2017 Pharmacy Pharmacy, [address] [place] [address] [place] [address] [phone] Chronic atrial fibrillation (HCC)*;Atrial fibrillation, unspecified type (HCC);Anticoagulation management encounter;buttermaker current use of anticoagulant therapy Allergies No [...] Active DilTIAZem HCl ER Beads 240 MG [id number]:C hronic atrial fibrillation (HCC) Take 1 Cap by mouth daily. 90 Cap 3 7 Active warfarin sodium (COUMADIN) 5 MG Tablet Take one tablet daily or as directed by anticoagulation pharmacist. 30 Tab 5 7 Active warfarin sodium (COUMADIN) 10 MG Tablet Take as directed by anticoagulation pharmacist. 30 Tab 5 7 05/13/20 17 Discontinued as of this encounter Active [...] * Aric Bowen, [facility] - 05/13/2017 8:00 AM EST Formatting of this note may be different from the original. Medication Therapy Management Clinic Anticoagulation Management Progress Note Name: Oma Owens Patient is a 57 year old male who presents to the Medication Therapy Management Clinic for follow-up appointment for anticoagulation education and management. Current Anticoagulation Regimen: warfarin 5 mg daily. Anticoagulation Regimen Adherence: Patient compliant. Potential Adverse Drug Reactions to Medication(s): Unusual bruising: no Unusual bleeding: no Miscellaneous: no Medication Changes (including OTC and/or vitamins/supplements/herbs): Stopped amiodarone 05/12 Increased diltiazem Diet/Activity Changes: No significant changes. Health Status/Co-Morbidity Changes: No significant changes. Any symptoms present today or patient specific questions/concerns that were not noted above and need to be addressed at visit: no. Any clinical circumstances from previous visit(s) that are not noted above, however necessitate today's appointment or more frequent monitoring in general: yes; INR previously above target goal. Most recent CBC: CBC/DIFF Harvey Dt/Tm Resulted Value Status WBC (K/uL) 05/13/10 8:26A 05/13/10 6.86 F RBC (M/uL) 05/13/10 8:A [...] 0.41 F ABS. EOS (K/uL) 05/13/10 8:26A 11/30/10 0.21 F INR: 2.2 Target range: 2.0-3.0 Intervention: Communication: Reinforced with patient the importance of communicating any medication/diet/health status changes, recent hospitalizations, or upcoming procedures so Anticoagulation Clinic can manage the medication therapy safely and appropriately. Recommendations: Medication: Continue 5 mg daily Further workup: Not applicable . Follow-up: Patient to repeat PT/INR in 3 week(s). Patient to call clinic in the meantime with any questions, concerns, or any changes in status. 3 minutes spent reviewing chart. 8 minutes spent counseling patient Monster Caceres PharmD Candidate 2018 Aric Bowen [facility] 05/13/2017 8:01 AM in this encounter Plan of Treatment Upcoming Encounters Date Type Specialty Care Team Description 05/28/[address] [place] [address] [phone] 07/20/2017 Office Visit Cardiology Kadeem Frey DO [address] [place] [address] [phone] 07/29/2017 Office Visit Sleep Disorders Mindi Gonzales MD [address] [place] [address] Donald, Nurse Sleep Disorders [address] [...] PANEL (BMP) FOR HTN YEARLY 04/11/2017 *DEPRESSION SCREENINGPAULINO FOR PTS 18 AND OVER 04/11/2017 *TSH FOR THYROID MEDICATION MONITORING YEARLY 04/11/2017 *URINE PROTEIN ONCE FOR HTN-DIPSTICK ACCEPTABLE 04/17/2017 as of this encounter Implants Not on fileas of this encounter Results * INR FINGERSTICK (05/13/2017 8:08 AM) Component Value Ref Range FINGERSTICK INR 2.2 INR THERAPEUTIC RANGE Comment: Therapeutic ranges for non-operative patients: Prophylaxsis/treatment of DVT: (Range:2.0-3.0) Treatment of pulmonary embolism:(Range:2.0-3.0) Prevention of systemic embolism from: -tissue heart valves -acute myocardial infarction -valvular heart disease -atrial fibrillation (Range: 2.0-3.0) Mechanical prosthetic valves: (Range: 2.5-3.5) Specimen Performing Laborator y [facility] [address] [facility] [place] [id number] in this encounter Visit Diagnoses Diagnosis Chronic atrial fibrillation (HCC) - Primary Atrial fibrillation Atrial fibrillation, unspeci fied type (HCC) Anticoagulation management e ncounter Encounter for therapeutic drug monitoring buttermaker current use of ant icoagulant therapy in this encounter Insurance Payer Benefit Plan / Group Subscriber ID Type Phone Address [employer] AARON CID [id number] 1 as of this encounter
--- OUTSIDE RECORDS SUMMARY | 2023-02-21 17:50 | External Medical Summary | Summary of Care ---
Author Name Unknown Organization [place] [address] Phone Care Team Providers Care Drawing Instructor Name Role Phone Lanette Roman MD Primary Care Provider [phone] Reason for Visit * Reason Comments APPOINTMENT Encounter Details Date Type Department Care Team Description 08/11/2017 Pharmacy Pharmacy, [address] [place] [id number] [address] [place] [phone] Chronic atrial fibrillation (HCC)* Allergies No Known [...] Active DilTIAZem HCl ER Beads 240 MG [id number]:Chr onic atrial fibrillation (HCC) Take 1 Cap [...] as of this encounter Progress Notes * Madie Adler, [facility] - 08/11/2017 1:40 PM EST Agree with plan Madie Adler, PharmD, [facility] Clinical Pharmacist 08/11/2017, 1:40 PM * Vesta Rojas, [facility] - 08/11/2017 1:30 PM EST Called patient and left message asking him to go to lab as soon as he can or to call us if he wishes a fingerstick. Will try again in one week if no response. in this encounter Plan of Treatment Upcoming Encounters Date Type Specialty Care Team Description 08/11/2017 Pharmacy Pharmacy [address] [place] [address] [phone] Chronic atrial fibrillation (HCC)* 08/18/2017 Pharmacy Pharmacy [address] [place] [address] [phone] 10/21/2017 Office Visit Sleep Disorders Mindi Gonzales MD [address] [place] [address] [place] [address] Donald, Nurse Sleep Disorders [address] [facility] [place] [address] [phone] 02/17/2018 Office Visit Cardiology Kadeem Frey, DO [address] [place] [address] [phone] Health Maintenance Due Date Last Done Comments [...] / Group Subscriber ID Type Phone Address [employer] AARON CID [id number] 1 as of this encounter
--- OUTSIDE RECORDS SUMMARY | 2023-02-21 17:50 | External Medical Summary | Summary of Care ---
Author Name Unknown Organization [place] [address] Phone Care Team Providers Care Director Loss Prevention Name Role Phone Lanette Roman MD Primary Care Provider [phone] Reason for Referral * Precert (Routine) Status Reason Specialty Diagnoses / Procedures Referred By Contact Referred To Contact Pending Review Precert Sleep Disorders Diagnoses PHYLLIS (obstructive sleep apnea) Procedures SLEEP STUDY, W/ CPAP (TREATMENT SETTINGS) Mindi Gonzales MD [address] [address] Reason for Visit * Reason Comments NEW PATIENT * Evaluate & Treat - Unlimited Visits (Within 10 days (routine)) Status Reason Specialty Diagnoses / Procedures Referred By Contact Referred To Contact Pending Review Specialty Services Required Sleep Medicine Diagnoses Persistent atrial fibrillation (HCC) Kadeem Frey DO [address] [place] [address] Encounter Details Date Type Department Care Team Description 07/29/2017 Office Visit Sleep Disorders, [facility] [address] [place] [address] Mindi Gonzales MD 400 [facility] [address] [place] [address] Donald Nurse Sleep Disorders [address] [place] [address] [phone] PHYLLIS (obstructive sleep apnea)* Allergies No Known [...] Active DilTIAZem HCl ER Beads 240 MG [id number]:Ch ronic atrial fibrillation (HCC) Take 1 Cap [...] Vital Sign Reading Time Taken Blood Pressure 130/90 07/29/2017 8:41 AM EST Pulse 96 07/29/2017 8:41 AM EST Temperature - - Respiratory Rate - - Oxygen Saturation - - Inhaled Oxygen Concentration - - Weight 205 kg (452 lb) 07/29/2017 8:41 AM EST Height 172.7 cm (5' 8") 07/29/2017 8:41 AM EST Body Mass Index 68.73 07/29/2017 8:41 AM EST in this encounter Instructions * Patient Instructions - Mindi Gonzales MD - 07/29/2017 9:13 AM EST Formatting of this note may be different from the original. Continuous Positive Air Pressure (CPAP) Continuous positive air pressure (CPAP)uses gentle air pressure to hold the airway open. CPAP is often the most effective treatment for sleep apnea and severe snoring. It works very well for many people. But keep in mind that it can take several adjustments before the setup is right for you. How CPAP works The CPAPmachine is asmall portable pump beside the bed. The pumpsends air through a hose, which is held over your noseand mouthby a mask.Mild air pressureis gently pushed through your airway. The air pressure nudges sagging tissues aside. This widens the airway so you can breathe better. CPAP may be combined with other kinds of therapy for sleep apnea. A mask over the nose gently directs air into the throat to keep the airway open. Types of air pressure treatments There are different types of CPAP. Your doctor or CPAP forensic technician will help you decide which type is best for you: Basic CPAPkeeps the pressure constant all night long. A bilevel device(BiPAP)providesmore pressure when you breathe in and less when you breatheout.A BiPAP machine also may be set to provide automatic breaths to maintain breathing if you stop breathing while sleeping. An autoCPAP deviceautomatically adjusts pressure throughout the night and in response to changes such as body position, sleep stage, and snoring. 2133-7834 [employer]. [address] [place] [address]. All rights reserved. This information is not intended as a substitute for professional medical care. Always follow your healthcare professional's instructions. What Are Snoring and Obstructive Sleep Apnea? If youve ever had a stuffed-up nose, you know the feeling of trying to breathe through a very narrow passageway. This is what happens in your throat when you snore. While you sleep, structures in your throat partially block your air passage, making the passage narrow and hard to breathe through.If the entire passage becomes blocked and you cant breathe at all, you have sleep apnea. Air moves freely through the nose, mouth and throat. Snoring If your throat structures are too large or the muscles relax too much during sleep, the air passagemay be partially blocked. As air from the nose or mouth passes around this blockage, the throat structures vibrate, causing the familiar sound of snoring. At times, this sound can be so loud that snorers wake up others, or even themselves, during the night. Snoring gets worse as more and more of the air passage is blocked. Air is blocked in the back of the mouth and throat. Obstructive sleep apnea If the structures completely block the throat, air cant flow to the lungs at all. This is calledapnea (meaning no breathing). Since the lungs arent getting fresh air, the brain tells thebody to wake up just enough to tighten the muscles and unblock the air passage. With a loud gasp, breathing begins again. This process may be repeated over and over again throughout the night, making your sleep fragmentedwith a resident athletic trainer stage of sleep. Even though you do not remember waking up many times during the night to a resident athletic trainer sleep, you feel tired the next day. The lack of sleep and fresh air can also strain your lungs, heart, and other organs, leading to problems such as high blood pressure, heart attack, or stroke. Air may not be able to move freely past a deviated septum or swollen turbinates. Problems in the nose and jaw Problems in the structure of the nose may obstruct breathing. A crooked (deviated) septum or swollen turbinates can make snoring worse or lead to apnea. Also, a receding jaw may make the tongue sit too far back, so its more likely to block the airway when youre asleep. 2913-2986 [employer]. [address] [place] [address]. All rights reserved. This information is not intended as a substitute for professional medical care. Always follow your healthcare professional's instructions. in this encounter Progress Notes * Mindi Gonzales MD - 07/29/2017 9:01 AM EST Formatting of this note may be different from the original. Name: Oma Owens Sex: male : 1960 Nursing Notes: Dominga Fishman, [facility] 07/29/17 0844 Unsigned Insurance [employer] measures 17.75 inches Had sleep study done at [facility] a few months ago. REASON FOR CONSULT: PHYLLIS HPI: Patient is a 57 yo gentleman with history of obesity, A.fib, HTN who had a PSG which showed severe PHYLLIS with significant desaturation. AHI=33.8 with sid of saturation 68 %. Patient denies feeling fatigue but he snores. Patient does keep a regular sleep/wake schedule. Patient goes to bed by 11 PM. Patient usually wakes up by 5 AM. On weekends, patient does keep the same sleep schedule. Patient estimates a total sleep time (in a 24 hour period) of 6 hours. Patient does work. Patient Denies problem falling asleep in 15 minutes. Bedtime routine: watching TV. Patient usually sleeps in the side and supine position. Once patient falls asleep, patient does wake up in the middle of the night, because of unknown reason. Patient has been told about snoring. Patient Denies waking up from sleep gasping for air or choking. Patient does feel refreshed upon waking up. Patient Reports waking up with a dry mouth in the morning. During sleep patient usually breathes through Mouth. There has been a recent change in weight. Gained 5-10 lbs. Daytime sleepiness is not a problem. There is no history of cataplexy, sleep paralysis or hypnagogic hallucinations. There is no history of a viral illness or significant head injury prior to the start of daytime sleepiness. Patient does not take naps. Patient does drive. Patient Denies feeling sleepy while driving. Patient does drink 2 caffeinated beverages per day. Patient Denies having an urge to move the legs. Patient Denies any history of parasomnias. Patient has not had a nasal fracture or other facial trauma. Patient has had any upper airway surgery. T & A. Patient does not have problems with nocturnal gastroesophageal reflux. Patient does not have difficulty with memory or concentration. SLEEP FUNCTION OUTCOME MEASURES ESS: 3 Modified FOSQ:38/40 DME:Hayden Mclean ) PAST TREATMENTS: None PRIOR SLEEP STUDIES: Severe PHYLLIS OTHER RELEVANT LABS AND STUDIES: None Source of history: self. ROS EXAM: CONSTITUTIONAL: No fevers, sweats, or chills EYE: No recent significant change in vision EARS: No recent change in hearing NOSE: No history of frequent colds or sinusitis MOUTH: No bleeding gums NECK: No lumps or masses and No swollen glands PULMONARY: No recent change in breathing CARDIOVASCULAR: No chest pain SLEEP: see [facility] Health Status Allergies as of 07/29/2017 (No Known Allergies) Current Outpatient Prescriptions Medication Sig Dispense Refill warfarin sodium (COUMADIN) 5 MG Tablet Take one tablet daily or as directed by anticoagulation pharmacist. 30 Tab 5 Potassium Chloride (KLOR-CON) 20 MEQ packet Take [...] Take 50 mg by mouth at bedtime. No past medical history on file. No past surgical history on file. Social History Social History Marital status: Single Spouse name: N/A Number of children: N/A Years of education: N/A Occupational History Not on file. Social History Main Topics Smoking status: Former Smoker Smokeless tobacco: Never Used Alcohol use Yes Comment: rarely Drug use: No Sexual activity: Not on file Other Topics Concern Not on file Social History Narrative No family history on file. BP 130/90 | Pulse 96 | Ht 5' 8" (1.727m) | Wt 452 lbs (205.026kg) | BMI 68.73 kg/m | BSA 3.14 m GENERAL: alert, healthy, no distress, well nourished and well developed Exam: Const: No signs of acute distress present HEENT: Normocephalic, Nasal congestion absent, nasal valve incompetence absent, Posterior airspace:Mariano tongue position 3, Retrognathia absent, Overbite absent, High arched palate present, Tongue scalloping/ridging absent. Throat: Uvula. Neck: Supple and symmetric. Chest: Resp: CTA and negative wheezes/rhonchi/rales Heart: Rhythm is regular. No heart murmur appreciated. Abdomen: Positive bowel sounds. Extremities: No edema of the lower limbs bilaterally. Musculoskeletal: Walks with a normal gait. Skin: Skin is warm and dry. Neuro: Coordination normal. No involuntary movement. Psych: Patient's attitude is cooperative. Mood is normal. Affect is normal. Impression and Plan Patient is a 57 yo gentleman with history of obesity, A.fib, HTN who had a PSG which showed severe PHYLLIS PHYLLIS CPAP titration study Discussed the diagnosis and consequences including but not limited to i.e increased risk for hypertension, arrhthymias, stroke, congestive heart failure and . Treatment options discussed in detail, CPAP therapy explained. All questions were answered. Consider weight loss. Blood pressure was 130/90 today. JNC 7 lists PHYLLIS as a causal risk factor for hypertension. Effective treatment of hypertension decreases cardiovascular risk/injury Recommended patient keep consistent bed/wake times and to get 7-8 hours of sleep. Reviewed good sleep hygiene. Advised patient on the dangers of drowsy driving and not to drive when drowsy. F/U in 6-8 weeks after study Thank you for referring this patient to the Sleep Clinic. Cc: DO Mindi Patel MD in this encounter Nursing Notes * Dominga Fishman, QUALITY PROCESS ENGINEER - 07/29/2017 8:43 AM EST Insurance [employer] measures 17.75 inches Had sleep study done at [facility] a few months ago. in this encounter Plan of Treatment Upcoming Encounters Date Type Specialty Care Team Description 07/30/[address] [place] [address] [phone] 08/03/2017 Office Visit Cardiology Kadeem Frey DO [address] [place] [address] [phone] 10/21/2017 Office Visit Sleep Disorders Mindi Gonzales MD [address] [place] [address] [place] [address] Donald, Nurse Sleep Disorders [address] [place] [address] [phone] Scheduled Tests Name Priority Associated Diagnoses Order S chedule SLEEP STUDY, W/ CPAP (TREATMENT SETTINGS) Routine PHYLLIS (obstructive sleep apnea) Ordered: 07/29/2017 Health Maintenance Due Date Last Done Comments TETANUS EVERY 10 YRS-TDAP (BOOSTRIX/ADACEL) SUGGESTED IF NOT RECEIVED IN PAST 1978 DIABETES SCREEN EVERY 3 YRS- AGE 45 [...] / Group Subscriber ID Type Phone Address [employer] AARON CID [id number] 1 as of this encounter
--- OUTSIDE RECORDS SUMMARY | 2023-02-21 17:50 | External Medical Summary ---
Author Name Unknown Address Unknown Organization : Laboratory Report Ordering Provider Test Date Status [facility] 04/20/2017 08:03:00 Final Observation Date Value Abnormality Reference Status INR in Capillary blood by Coagulation assay 04/20/2017 08:05 3.4 Final Days in therapeutic INR range/Days INR result determined [Ratio] 04/20/2017 08:05 Final Performing Location
--- OUTSIDE RECORDS SUMMARY | 2023-02-21 17:50 | External Medical Summary | Summary of Care ---
Author Name Unknown Organization [place] [address] Phone Care Team Providers Care Commissioner Of Officials Name Role Phone Lanette Roman MD Primary Care Provider [phone] Reason for Visit * Reason Comments APPOINTMENT auth monica wood 04/14 Encounter Details Date Type Department Care Team Description 04/14/2017 Telephone Cardiology, [facility] 132 [place] [address] Kadeem Frey, [facility] [address] [phone] APPOINTMENT (auth monica lernerdelia 04/14) Allergies No [...] Specialty Care Team Description 04/26/2017 Pharmacy Pharmacy [address] [place] [address] [phone] 07/29/2017 Office Visit Sleep Disorders Mindi Gonzales MD [address] [place] [address] Donald, Nurse Sleep Disorders [address] [place] [address] [place] [address] [phone] Health Maintenance Due Date Last Done Comments [...] / Group Subscriber ID Type Phone Address [employer] AARON CID [id number] 1 as of this encounter
--- OUTSIDE RECORDS SUMMARY | 2023-02-21 17:50 | External Medical Summary | Summary of Care ---
Author Name Unknown Organization [place] [address] Phone Care Team Providers Care Side Framer Name Role Phone Lanette Roman MD Primary Care Provider [phone] Reason for Visit * Reason Comments MEDICATION REFILL Encounter Details Date Type Department Care Team Description 05/04/2017 Refill Cardiology, [facility] 132 [facility] [place] [address] Kadeem Frey, 132 [place] [address] [phone] Allergies No Known Allergiesas of this encounter [...] a day. 64 Tab 11 05/05/2017 Active as of this encounter Active Problems Problem Noted Date HTN, goal below 140/90 04/13/2017 Obesity, morbid (more than 100 lbs over ideal weight or BMI > 40) (HCC) 04/13/2017 Hypothyroidism 04/13/2017 Atrial fibrillation ([facility]) 04/05/2017 as of this encounter Social History Tobacco Use Types Packs/Day Years Used Date Former Smoker Smokeless Tobacco: Never Used Alcohol Use Drinks/Week oz/Week Comments Yes rarely Sex Assigned at Date Recorded Not on file as of this encounter Plan of Treatment Upcoming Encounters Date Type Specialty Care Team Description 05/12/2017 Office Visit Cardiology Kadeem Frey, [address] [place] [address] [phone] 05/13/[address] [place] [address] [phone] 07/29/2017 Office Visit Sleep Disorders Mindi Gonzales MD [address] [place] [address] [place] [address] Donald, Nurse Sleep Disorders [address] [place] [address] [phone] Health Maintenance Due Date Last Done Comments [...] / Group Subscriber ID Type Phone Address [employer] AARON CID [id number] 1 as of this encounter
--- OUTSIDE RECORDS SUMMARY | 2023-02-21 17:50 | External Medical Summary | Summary of Care ---
Author Name Unknown Organization [place] [address] Phone Care Team Providers Care Glass Mold Repairer Name Role Phone Lanette Roman MD Primary Care Provider [phone] Reason for Visit * Reason Comments NO SHOW Encounter Details Date Type Department Care Team Description 09/20/2017 Pharmacy Pharmacy, [address] [place] [address] [place] [id number] Chronic atrial fibrillation (HCC)* Allergies No Known [...] Active DilTIAZem HCl ER Beads 240 MG [id number]:Chr onic atrial fibrillation (HCC) Take 1 Cap [...] Progress Notes * Aric Bowen RP - 09/20/2017 11:56 AM EDT Agree with plan as documented. Aric Bowen [facility] Clinical Pharmacist 09/20/2017, 11:56 AM * Vesta Rojas OSA - 09/20/2017 11:45 AM EDT Called patient and the voice mail box is full. Sent patient a no show letter on 09/10/17. Try again in one week if no response or appointment made and send another letter. in this encounter Plan of Treatment Upcoming Encounters Date Type Specialty Care Team Description 09/20/2017 Pharmacy Pharmacy [address] [place] [address] [phone] Chronic atrial fibrillation (HCC)* 09/27/2017 Pharmacy Pharmacy [address] [place] [address] [phone] 10/21/2017 Office Visit Sleep Disorders Mindi Gonzales MD [address] [place] [address] [place] [address] Donald, Nurse Sleep Disorders [address] [place] [address] 02/17/2018 Office Visit Cardiology Kadeem Frey, DO [address] [place] [address] [phone] Health Maintenance Due Date Last Done Comments [...] / Group Subscriber ID Type Phone Address [employer] AARON CID [id number] 1 as of this encounter
--- OUTSIDE RECORDS SUMMARY | 2023-02-21 17:51 | External Medical Summary ---
Author Name Unknown Address Unknown Organization : Laboratory Report Ordering Provider Test Date Status [facility] 04/12/2017 13:28:00 Final Observation Date Value Abnormality Reference Status INR in Capillary blood by Coagulation assay 04/12/2017 13:29 1.7 Final Days in therapeutic INR range/Days INR result determined [Ratio] 04/12/2017 13:29 Final Performing Location
--- OUTSIDE RECORDS SUMMARY | 2023-02-21 17:51 | External Medical Summary | Summary of Care ---
Author Name Unknown Organization [place] [address] Phone Care Team Providers Care Restaurant Inspector Name Role Phone Lanette Roman MD Primary Care Provider [phone] [phone] Reason for Visit * Reason Comments Dosage Adjustment In Person (Anticoag Cl inic) Encounter Details Date Type Department Care Team Description 04/16/2017 Pharmacy Pharmacy, [address] [place] [address] [place] [address] [phone] Atrial fibrillation, unspecified type (HCC)*;Anticoagulation management encounter;[facility] current use of anticoagulant therapy [...] this encounter Progress Notes * Aric Bowen, [facility] - 04/16/2017 12:45 PM EDT Formatting of this note may be different from the original. [facility] Anticoagulation Management Progress Note Name: Oma Owens Patient is a 57 year old male who presents to the Med[facility] Therapy Management [facility] for follow-up appointment for anticoagulation education and management. Current Anticoagulation Regimen: warfarin 5mg MTWTH (10mg tabs) . Anticoagulation Regimen Adherence: Patient compliant. Potential Adverse Drug Reactions to Medication(s): Unusual bruising: no Unusual bleeding: no Miscellaneous: no Medication Changes (including OTC and/or vitamins/supplements/herbs): None Diet/Activity Changes: No significant changes. Health Status/Co-Morbidity Changes: No significant changes. Any symptoms present today or patient specific questions/concerns that were not noted above and need to be addressed at visit: Yes Amiodarone start approx 03/27 Plan is for cardioversion in near future- 04/27 at [facility] Patient denies eating liver or scrapple. Denies changes in OTC/herbals/nutritional drinks. Denies changes in alcohol or tobacco use. Any clinical circumstances from previous visit(s) that are not noted above, however necessitate today's appointment or more frequent monitoring in general: yes; INR previously below target goal. Most recent CBC: CBC/DIFF Harvey [...] (K/uL) 05/13/10 8:A 05/13/10 0.21 F INR: 1.7 Target range: 2.0-3.0 Intervention: Medication regimen adjusted as noted below Recommendations: Medication: take coumadin 10mg F, 5mg Sa, 10mg Vargas, 5mg M (10mg tabs) . Further workup: Not applicable . Follow-up: Patient to repeat PT/INR in 4 day(s). Patient to call clinic in the meantime with any questions, concerns, or any changes in status. 3 minutes spent reviewing chart. 8 minutes spent counseling patient Aric Shweta Bowen, [facility] 04/16/2017 12:43 PM in this encounter Plan of Treatment Upcoming Encounters Date Type Specialty Care Team Description 04/20/2017 Pharmacy Pharmacy [address] [place] [address] 07/29/2017 Office Visit Sleep Disorders Mindi Gonzales MD 400 [facility] [address] [place] [address] oDnald, Nurse Sleep Disorders [address] [place] [address] [place] [address] Health Maintenance Due Date [...] *TSH FOR THYROID MEDICATION MONITORING YEARLY 04/11/2017 as of this encounter Implants Not on fileas of this encounter Results * INR FINGERSTICK (04/16/2017 12:47 PM) Component Value Ref Range FINGERSTICK INR 1.7 INR THERAPEUTIC RANGE Comment: Therapeutic ranges for non-operative patients: Prophylaxsis/treatment of DVT: (Range:2.0-3.0) Treatment of pulmonary embolism:(Range:2.0-3.0) Prevention of systemic embolism from: -tissue heart valves -acute myocardial infarction -valvular heart disease -atrial fibrillation (Range: 2.0-3.0) Mechanical prosthetic valves: (Range: 2.5-3.5) Specimen Performing Laborator y [facility] [address] [facility] [place] [address] in this encounter Visit Diagnoses Diagnosis Atrial fibrillation, unspeci fied type (HCC) - Primary Anticoagulation management e ncounter 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
--- OUTSIDE RECORDS SUMMARY | 2023-02-21 17:51 | External Medical Summary ---
Author Name Unknown Organization [employer] Support Name Relationship Address Phone Chris ENGLISH MD [facility] Unknown Unavailabl e Laboratory Report Ordering Provider Test Date Status Chris ENGLISH MD 05/13/2010 08:260500 F Obs # Observation Date Value ABNL Reference Status Pe rforming Location 1 BUN SerPl-[facility] 05/13/2010 09:44-0500 20 6-20 mg/dL Final 2 Creat SerPl-[facility] 05/13/2010 09:44-0500 0.9 0.7-1.5 mg/dL Final 3 [facility] 05/13/2010 09:44-0500 139 135-146 mmol/L Final 4 Potassium SerPl-[facility] 05/13/2010 09:44-0500 4.1 3.5-5.1 mmol/L Final 5 Chloride SerPl-[facility] 05/13/2010 09:44-0500 103 98-111 mmol/L Final 6 CO[facility] 05/13/2010 09:44-0500 30 22-32 mmol/L Final 7 Glucose SerPl-[facility] 05/13/2010 09:44-0500 88 70-120 mg/dL Final 8 Albumin SerPl-[facility] 05/13/2010 09:44-0500 3.6 L 3.8-5.0 g/dL Final 9 AST SerPl-[facility] 05/13/2010 09:44-0500 19 U/L Final 10 [facility] 05/13/2010 09:44-0500 67 25-115 U/L Final 11 Bilirub SerPl-[facility] 05/13/2010 09:44-0500 0.5 0.3-1.3 mg/dL Final 12 Calcium SerPl-nc 05/13/2010 09:44-0500 8.5 8.3-10.5 mg/dL Final 13 Prot SerPl-nc 05/13/2010 09:44-0500 6.2 6.0-8.3 g/dL Final 14 ALT SerPl-[facility] 05/13/2010 09:44-0500 16 10-50 U/L Final 15 Anion Gap SerPl-[facility] 05/13/2010 09:44-0500 6 L 7-15 mEq/L Final 16 Pred GFR SerPl MDRD-vRate 05/13/2010 09:44-0500 >60.0 >60 mL/min Final
--- OUTSIDE RECORDS SUMMARY | 2023-02-21 17:51 | External Medical Summary ---
Author Name Unknown Organization [employer] [facility] tem Support Name Relationship Address Phone Chris ENGLISH MD PROV Unknown Unavailabl e Laboratory Report Ordering Provider Test Date Status Chris ENGLISH MD 05/13/2010 08:26-0500 F Obs # Observation Date Value ABNL Reference Status Pe rforming Location 1 Iron SerPl-mCnc 05/13/2010 14:36-0500 116 45-160 ug/dL Final
--- OUTSIDE RECORDS SUMMARY | 2023-02-21 17:51 | External Medical Summary | Summary of Care ---
Author Name Unknown Organization [place] [address] Phone Care Team Providers Care Supervisor [employer] Name Role Phone Lanette Roman MD Primary Care Provider [phone] Reason for Visit * Reason Comments APPOINTMENT auth monica wood 04/14 Encounter Details Date Type Department Care Team Description 04/14/2017 Telephone Cardiology, [facility] [address] [facility] [place] [address] Kadeem rFey, [address] [facility] [address] [phone] APPOINTMENT (auth monica lernerdelia 04/14) Allergies No [...] Specialty Care Team Description 04/20/2017 Pharmacy Pharmacy [address] [place] [address] [phone] 07/29/2017 Office Visit Sleep Disorders Mindi Gonzales MD [address] [place] [address] Donald, Nurse Sleep Disorders [address] [place] [address] [place] [address] [phone] Health Maintenance Due Date Last Done Comments [...] / Group Subscriber ID Type Phone Address [facility] NOEL ZAMORA [id number] as of this encounter
--- OUTSIDE RECORDS SUMMARY | 2023-02-21 17:51 | External Medical Summary ---
Author Name Unknown Organization [employer] [facility] tem Support Name Relationship Address Phone Chris ENGLISH MD PROV Unknown Unavailabl e Laboratory Report Ordering Provider Test Date Status Chris ENGLISH MD 05/13/2010 08:28-0500 F Obs # Observation Date Value ABNL Reference Status Pe rforming Location 1 Vit B12 Ser-mCnc 05/13/2010 14:53-0500 771 211-946 pg/mL Final
--- OUTSIDE RECORDS SUMMARY | 2023-02-21 17:51 | External Medical Summary ---
Author Name Unknown Organization [employer] [facility] tem Support Name Relationship Address Phone Chris ENGLISH MD PROV Unknown Unavailabl e Laboratory Report Ordering Provider Test Date Status Chris ENGLISH MD 05/13/2010 08:26-0500 F Obs # Observation Date Value ABNL Reference Status Pe rforming Location 1 Hgb A1c Fr Bld 05/13/2010 15:48-0500 5.2 3.4-6.4 % Final 2 Mean Glucose Bld gHb Est-mCnc 05/13/2010 15:48-0500 103 <126 MG/DL Final
--- OUTSIDE RECORDS SUMMARY | 2023-02-21 17:51 | External Medical Summary ---
Author Name Unknown Address Unknown Organization : Laboratory Report Ordering Provider Test Date Status [facility] 04/16/2017 12:47:00 Final Observation Date Value Abnormality Reference Status INR in Capillary blood by Coagulation assay 04/16/2017 12:49 1.7 Final Days in therapeutic INR range/Days INR result determined [Ratio] 04/16/2017 12:49 Final Performing Location
--- OUTSIDE RECORDS SUMMARY | 2023-02-21 17:51 | External Medical Summary ---
Author Name Unknown Organization [employer] [facility] tem Support Name Relationship Address Phone AMADOR RODRIGUEZ,Chris CASTILLO PROV Unknown Unavailabl e Laboratory Report Ordering Provider Test Date Status Chris ENGLISH MD 05/13/2010 08:26-0500 F Obs # Observation Date Value ABNL Reference Status Pe rforming Location 1 HOURS FASTING 0 08:29-050 0 12 hours Final 2 Trigl SerPl-mCnc 0 14:36-050 0 143 60-290 mg/dL Final 3 Cholest SerPl-mCnc 0 14:36-050 0 210 H <200 mg/dL Final 4 HDLc SerPl-mCnc 0 14:36-050 0 47 40-59 mg/dL Final 5 Cholest/HDLc SerPl-mRto 0 14:36-050 0 4.5 Final 6 LDLc SerPl Calc-mCnc 0 14:36-050 0 134 H 0-129 mg/dL Final 7 LDLc SerPl Calc-mCnc 0 14:36-050 0 Final 8 LDLc SerPl Calc-mCnc 0 14:36-050 0 LIPID PANEL REFERENCE RANGES (mg/dL) Final 9 LDLc SerPl Calc-mCnc 0 14:36-050 0 Final 10 LDLc SerPl Calc-mCnc 0 14:36-050 0 LDL CHOLESTEROL Final 11 LDLc SerPl Calc-mCnc 0 14:36-050 0 <100 OPTIMAL GOAL FOR HIGH RISK PATIENTS Final 12 LDLc SerPl Calc-mCnc 0 14:36-050 0 100-129 NEAR OR ABOVE NORMAL Final 13 LDLc SerPl Calc-mCnc 0 14:36-050 0 130-159 BORDERLINE HIGH Final 14 LDLc SerPl Calc-nc 0 14:36-050 0 160-189 HIGH Final 15 LDLc SerPl Calc-nc 0 14:36-050 0 >189 VERY HIGH Final 16 LDLc SerPl Calc-nc 0 14:36-050 0 Final 17 LDLc SerPl Calc-[facility] 0 14:36-050 0 TOTAL CHOLESTEROL Final 18 LDLc SerPl Calc-[facility] 0 14:36-050 0 <200 DESIRABLE Final 19 LDLc SerPl Calc-[facility] 0 14:36-050 0 200-239 BORDERLINE HIGH Final 20 LDLc SerPl Calc-[facility] 0 14:36-050 0 >239 HIGH Final 21 LDLc SerPl Calc-[facility] 0 14:36-050 0 Final 22 LDLc SerPl Calc-[facility] 0 14:36-050 0 HDL [id number] Final 23 LDLc SerPl Calc-[facility] 0 14:36-050 0 <40 LOW Final 24 LDLc SerPl Calc-[facility] 0 14:36-050 0 40-59 NORMAL Final 25 LDLc SerPl Calc-[facility] 0 14:36-050 0 >59 HIGH Final
--- OUTSIDE RECORDS SUMMARY | 2023-02-21 17:51 | External Medical Summary ---
Author Name Unknown Organization [employer] [facility] tem Support Name Relationship Address Phone Chris ENGLISH MD PROV Unknown Unavailabl e Laboratory Report Ordering Provider Test Date Status Chris ENGLISH MD 05/13/2010 08:26-0500 F Obs # Observation Date Value ABNL Reference Status Pe rforming Location 1 WBC # Bld 05/13/2010 09:35-0500 6.86 4.00-10.80 K/uL Final 2 RBC # Bld 05/13/2010 09:35-0500 5.36 H 4.50-5.25 M/uL Final 3 Hgb Bld-mCnc 05/13/2010 09:35-0500 15.8 14.0-16.5 g/dL Final 4 Hct Fr Bld 05/13/2010 09:35-0500 45.2 40.0-47.0 % Final 5 MCV RBC Qn 05/13/2010 09:35-0500 84.3 82.0-99.5 fL Final 6 MCH RBC Qn 05/13/2010 09:35-0500 29.5 27.0-34.0 pg Final 7 MCHC RBC-mCnc 05/13/2010 09:35-0500 35.0 32.0-36.0 g/dL Final 8 RDW RBC Qn 05/13/2010 09:35-0500 13.2 11.5-15.5 % Final 9 Platelet # Bld 05/13/2010 09:35-0500 182 150-400 K/uL Final 10 PMV Bld Qn 05/13/2010 09:35-0500 8.1 6.6-11.1 fL Final 11 DIFF TYPE 05/13/2010 09:35-0500 Final AUTO
--- OUTSIDE RECORDS SUMMARY | 2023-02-21 17:51 | External Medical Summary ---
Author Name Unknown Address [facility] [address] [place] [id number] Phone Organization K01:[place] [address] [address] [place] [id number] Laboratory Report Ordering Provider Test Date Status ROSAKENT 04/05/2017 09:41:00 Final Observation Date Value Abnormality Reference Status PT 04/05/2017 14:27 45.5 Above high normal 11.5- 14.6 Final Performing Location [place] [address] [address] [facility] [address]
== END 2023-02-21 14:40 | disposition home health service (06) | DRG 871 ==
LOC: ED 14:15 → SUATTDRO 23:30 → EDINP 23:30 → 4W 02-12 00:27